=== PATIENT | male | born 1960 | race Caucasian/White ===

== ENCOUNTER 2018-05-04 07:37 | Emergency (ER) | payer OTHER ==
[2018-05-04] MEDS: FAMOTIDINE 20 MG/2 ML VIAL IVP (08:19)
[2018-05-04] MEDS: fentaNYL PF VIAL 100 MCG/2 ML VIAL IV (08:19)
[2018-05-04] MEDS: ONDANSETRON PF 4 MG/2 ML VIAL. IV (08:20)
[2018-05-04] MEDS: IV NORMAL SALINE 1000ML BAG 1,000 ML IV (08:20)
[2018-05-04 08:23] LABS: ADD MAN DIFF? NO
[2018-05-04 08:38] LABS: BASO % 0 % (0-3); EOS % 1 % (0-3); HEMATOCRIT 30.6 % (39.0-53.0); LYMPH # 1.3 x10^3/uL (1.0-4.8); LYMPH % 32 % (24-48); MEAN CORPUSCULAR HEMOGLOBIN 35 pg (25-35); MEAN CORPUSCULAR HGB CONC 36 g/dL (31-37); MEAN CORPUSCULAR VOLUME 97 fL (79-100); MONO # 0.2 x10^3/uL (0.0-1.1); MONO % 6 % (0-9); NEUT # 2.5 x10^3uL (1.8-7.7); NEUT % 61 % (31-73); PLATELET COUNT 104 x10^3/uL (140-400); RED BLOOD COUNT 3.16 x10^6/uL (4.30-5.70); RED CELL DISTRIBUTION WIDTH 15.1 % (11.5-14.5); WHITE BLOOD COUNT 4.1 x10^3/uL (4.0-11.0)
[2018-05-04 08:42] LABS: ANION GAP 13 (6-14); BLOOD UREA NITROGEN 18 mg/dL (8-26); BUN/CREATININE RATIO 13 (6-20); CARBON DIOXIDE 22 mmol/L (21-32); CHLORIDE 97 mmol/L (98-107); CREATININE 1.4 mg/dL (0.7-1.3); GFR 52.2; GLUCOSE 112 mg/dL (70-99); POTASSIUM 3.9 mmol/L (3.5-5.1); SODIUM 132 mmol/L (136-145)
[2018-05-04 08:43] LABS: INR 1.3 (0.8-1.1); PARTIAL THROMBOPLASTIN TIME 34 SEC (24-38); PROTHROMBIN TIME PATIENT 15.8 SEC (11.7-14.0)
[2018-05-04 08:48] LABS: ALBUMIN 2.9 g/dL (3.4-5.0); ALBUMIN/GLOBULIN RATIO 0.3 (1.0-1.7); ALK PHOS 65 U/L (46-116); ALT (SGPT) 22 U/L (16-63); AST (SGOT) 45 U/L (15-37); LIPASE 156 U/L (73-393); TOTAL BILIRUBIN 0.7 mg/dL (0.2-1.0); TOTAL PROTEIN 11.7 g/dL (6.4-8.2)
[2018-05-04 08:51] LABS: TROPONINI < 0.017 ng/mL (0.000-0.055)
[2018-05-04 08:56] LABS: CKMB MASS 0.6 ng/mL (0.0-3.6); CREATINE KINASE 68 U/L (39-308)
[2018-05-04 09:08] LABS: BILIRUBIN,URINE NEGATIVE (NEG); CLARITY,URINE CLEAR; COLOR,URINE YELLOW; GLUCOSE,URINE NEGATIVE (NEG); NITRITE,URINE NEGATIVE (NEG); PH,URINE 5.5; PROTEIN,URINE NEGATIVE (NEG-TRACE); UROBILINOGEN,URINE 0.2 mg/dL (0.2 mg/dL)
[2018-05-04 09:23] LABS: BACTERIA,URINE FEW /HPF (0-FEW); HYALINE CASTS, URINE FEW /HPF; RBC,URINE RARE /HPF (0-2); SQUAMOUS EPITHELIAL CELL,UR OCC /LPF
[2018-05-04] MEDS: HYDROcodone/APAP 5/325MG 1 TAB TABLET PO (10:06)
== END 2018-05-04 10:11 | disposition home or self-care (01) ==
LOC: ER 07:37
DX: R10.11 Right upper quadrant pain (principal); R07.89 Other chest pain; R11.0 Nausea; E78.00 Pure hypercholesterolemia, unspecified; I10 Essential (primary) hypertension; M10.9 Gout, unspecified; Z88.0 Allergy status to penicillin; Z88.1 Allergy status to other antibiotic agents
CPT/HCPCS: 36415; 76705; 80053; 81001; 82553; 83690; 84484; 85025; 85610; 85730; 93005; 96361; 96374; 96375; 99285-25; J2405; J3010; J7030; S0028

== ENCOUNTER → 2018-05-05 | Outpatient (CLI) | payer OTHER ==
[~2018-05-05] MED LIST: BUPIVACAINE-EPI 0.25%-1:200000 50 ML VIAL.; DESFLURANE 31 TO 60 MINUTES IH; DEXAMETHASONE SOD PHOS 20 MG/5 ML VIAL.; GLYCOPYRROLATE 1 MG/5 ML VIAL.; IOHEXOL 300 MG/ML 100ML VIAL.; KETOROLAC 30 MG/ML INJ FOR OR. INJ; NEOSTIGMINE METHYLSULFATE 5 MG/5 ML SYRINGE.; ONDANSETRON PF 4 MG/2 ML VIAL.; SURGICEL HEMOSTAT 4X8 EACH.
[2018-05-05] MEDS: SINCALIDE 2.3 MCG in IV NORMAL SALINE 50ML 30 ML IV (08:46)
== END | disposition home or self-care (01) ==
LOC: NM 07:22
DX: R10.11 Right upper quadrant pain (principal); I10 Essential (primary) hypertension; E78.5 Hyperlipidemia, unspecified; E78.00 Pure hypercholesterolemia, unspecified; K21.9 Gastro-esophageal reflux disease without esophagitis; Z87.891 Personal history of nicotine dependence
CPT/HCPCS: 78226; 96374; 96375; A9537; J1100; J1885; J2405; J2710; J2805; J3490; Q9967

== ENCOUNTER 2018-05-06 08:39 | Day surgery (SDC) | payer OTHER ==
[2018-05-06] MEDS ORDERED: fentaNYL PF VIAL 100 MCG/2 ML VIAL IV ×3 (09:00→10:30)
[2018-05-06] MEDS ORDERED: MIDAZOLAM HCL/PF 2 MG/2 ML VIAL. IV (09:00)
[2018-05-06] MEDS ORDERED: LIDOCAINE 1% PF 2 ML VIAL. ID ×2 (09:00→10:30)
[2018-05-06] MEDS: IV RINGERS,LACTATED 1000ML 1,000 ML IV (09:13)
[2018-05-06] MEDS ORDERED: PROPOFOL 20 ML IV (09:17)
[2018-05-06] MEDS ORDERED: LIDOCAINE 2% PF Vial for OR 5 ML VIAL. (09:17)
[2018-05-06] MEDS ORDERED: fentaNYL PF VIAL 100 MCG/2 ML VIAL ×3 (09:18→10:44)
[2018-05-06] MEDS: BUPIVACAINE-EPI 0.25%-1:200000 50 ML VIAL. INJ (09:37)
[2018-05-06] MEDS ORDERED: PROCHLORPERAZINE 10 MG/2 ML VIAL. (10:21)
[2018-05-06] MEDS ORDERED: MORPHINE SULFATE 2 MG/ML DISP.SYRIN. (10:21)
[2018-05-06] MEDS ORDERED: IV RINGERS,LACTATED 1000ML 1,000 ML IV (10:22)
[2018-05-06] MEDS: fentaNYL PF VIAL 100 MCG/2 ML VIAL IV ×4 (10:25→10:58)
[2018-05-06] MEDS: MORPHINE SULFATE 2 MG/ML DISP.SYRIN. IV ×2 (10:25→10:37)
[2018-05-06] MEDS: PROCHLORPERAZINE 10 MG/2 ML VIAL. IV (10:27)
[2018-05-06] MEDS ORDERED: oxyCODONE/APAP 5/325 1 TAB TABLET PO (10:45)
[2018-05-06] MEDS: oxyCODONE/APAP 5/325 1 TAB TABLET PO (11:00)
== END 2018-05-06 11:43 | disposition home or self-care (01) ==
LOC: SURG 08:39
DX: K82.8 Other specified diseases of gallbladder (principal); Z88.0 Allergy status to penicillin; Z88.1 Allergy status to other antibiotic agents; I10 Essential (primary) hypertension; E78.00 Pure hypercholesterolemia, unspecified; K21.9 Gastro-esophageal reflux disease without esophagitis; F41.9 Anxiety disorder, unspecified; M10.9 Gout, unspecified; Z98.890 Other specified postprocedural states; Z72.89 Other problems related to lifestyle; Z79.899 Other long term (current) drug therapy; Z87.891 Personal history of nicotine dependence
CPT/HCPCS: 47562; A7015; J0780; J1956; J2001; J2270; J2704; J3010; J7030

== ENCOUNTER → 2018-06-16 | Outpatient (CLI) | payer OTHER ==
[2018-06-11 11:00] VITALS: BP 148/88
[~2018-06-16] MED LIST changes: +ALLO300T PO; +ATOR40TA59 PO; +BARIUM SULFATE 60% 355 ML SUSP PO ONE; -BUPIVACAINE-EPI 0.25%-1:200000 50 ML VIAL.; +CELE200C PO; -DESFLURANE 31 TO 60 MINUTES IH; -DEXAMETHASONE SOD PHOS 20 MG/5 ML VIAL.; +DULO60CA6 PO; +FLUT9.9S NS; -GLYCOPYRROLATE 1 MG/5 ML VIAL.; +HYDR-971 PO; -IOHEXOL 300 MG/ML 100ML VIAL.; -KETOROLAC 30 MG/ML INJ FOR OR. INJ; +LISI1TAB5 PO; +LOSA25TA5 PO; +MELO7.5T29 PO; -NEOSTIGMINE METHYLSULFATE 5 MG/5 ML SYRINGE.; +OMEG1CAP6 PO; +OMEP20TA63 PO; +ONDA4TAB7 PO; -ONDANSETRON PF 4 MG/2 ML VIAL.; +OXYC-323 PO; +QUET25TA5 PO; -SURGICEL HEMOSTAT 4X8 EACH.; +VENL75CA PO
--- NOTE | 2018-06-16 11:59 | RAD ---
Small bowel series, 06/16/2018: HISTORY: Anemia The preliminary abdominal image demonstrates a nonspecific gas pattern. There is moderate multilevel hypertrophic degenerative change in the lower lumbar spine. Serial digital images and fluoroscopic spot films were obtained following oral ingestion of liquid barium. 0.5 minutes of fluoroscopy time was utilized. 3 fluoroscopic spot images were recorded. The small bowel loops are of normal caliber with no significant thickening of their folds. The barium reached the colon at 2 hours the terminal ileum is unremarkable. There was reflux of barium into a portion of the appendix. IMPRESSION: No significant small bowel abnormality is detected. Electronically signed by: Matheus Handley MD (06/16/2018 11:56 AM) [facility]
== END | disposition home or self-care (01) ==
LOC: RAD 16:19
PROVIDERS: ATTEND Internal Medicine Gastroenterology
DX: D64.9 Anemia, unspecified (principal); I10 Essential (primary) hypertension; E78.00 Pure hypercholesterolemia, unspecified; K21.9 Gastro-esophageal reflux disease without esophagitis; M10.9 Gout, unspecified; Z87.891 Personal history of nicotine dependence; Z88.0 Allergy status to penicillin; Z88.1 Allergy status to other antibiotic agents
CPT/HCPCS: 74250

== ENCOUNTER 2018-06-25 06:23 | Inpatient (IN) | payer OTHER ==
[2018-06-25] VITALS (16 sets, daily range): BP systolic 138–178; BP diastolic 88–113
[~2018-06-25] VITALS: Ht 175.3 cm; Wt 106.7 kg
[~2018-06-25 06:23] MED LIST changes: -BARIUM SULFATE 60% 355 ML SUSP PO ONE
[2018-06-25] MEDS ORDERED: LOSA1TAB12 PO (07:46)
[2018-06-25] MEDS ORDERED: ESCITALOPRAM OX10 MG PO (07:46)
[2018-06-25] MEDS ORDERED: HYDR-2758 PO (07:46)
[2018-06-25] MEDS ORDERED: FERR325T14 PO (07:46)
[2018-06-25] MEDS ORDERED: CYCL10TA2 PO (07:46)
--- NOTE | 2018-06-25 09:39 | PDOC1 ---
History and Physical Date of Admission Date of Admission DATE: 06/25/18 TIME: 09:07 Identification/Chief Complaint Chief Complaint Needs a bone marrow biopsy History of Present Illness History of Present Illness Mr. Jerry is a 58 year old male who presented to [facility] from [place] for a bone marrow biopsy. He states that over the course of the last 6-8 weeks he has been feeling poor. He had his gallbladder removed in April but that has not alleviated his symptoms. He states that he has been having bad constipation , feeling restless, has burning and itchy skin, body aches, 15lb weight loss, occasional night sweats, and easy bruising. He denies any urgency, blood in the urine, or frequency. He also reports that he has had a bone scan which he is still waiting on the results for, along with a colonoscopy and EGD which were both within normal limits. Past Medical History Cardiovascular: HTN, Hyperlipidemia Pulmonary: No pertinent hx GI: Diverticulosis, GERD, Gastritis Heme/Onc: No pertinent hx Hepatobiliary: No pertinent hx Psych: Anxiety Rheumatologic: No pertinent hx Infectious disease: No pertinent hx Renal/: No pertinent hx Endocrine: No pertinent hx Past Surgical History Past Surgical History: Tonsillectomy Family History Family History: No Significant Social History ALCOHOL: occassional Drugs: None Current Medications Current Medications Active Scripts Active Zofran (Ondansetron Hcl) 4 Mg Tablet 1 Tab PO Q8HRS PRN Reported Hyzaar 100-25 Tablet (Losartan/Hydrochlorothiazide) 1 Each Tablet 1 Each PO DAILY Hydrocodone-Apap 5-325 (Hydrocodone Bit/Acetaminophen) 1 Each Tablet 1 Tab PO PRN Q6HRS PRN Ferrous Sulfate 325 Mg Tablet 1 Tab PO DAILY Escitalopram Oxalate 10 Mg Tablet 10 Mg PO DAILY Cyclobenzaprine Hcl 10 Mg Tablet 10 Mg PO PRN TID PRN Seroquel (Quetiapine Fumarate) 25 Mg Tablet 1 Tab PO QHS Flonase Allergy Relief (Fluticasone Propionate) 9.9 Ml [place].susp 2 Sprays NS DAILY Meloxicam 7.5 Mg Tablet 7.5 Mg PO DAILY Prilosec Otc (Omeprazole Magnesium) 20 Mg Tablet.dr 20 Mg PO DAILY Allopurinol 300 Mg Tablet 300 Mg PO DAILY Allergies Allergies: Coded Allergies: amoxicillin (Verified Allergy, Intermediate, 06/11/18) Penicillins (Verified Adverse Reaction, Intermediate, Nausea and Vomiting , 06/11/18) Physical Exam Physical Exam A&O x3 Supple, mmm RRR no M CTAB Soft, TTP in suprapubic area No c/c/e CN 2-12 intact bilaterally Vitals Vitals Vital Signs Date Time Temp Pulse Resp B/P (MAP) Pulse Ox O2 Delivery O2 Flow Rate FiO2 06/25/18 07:30 98.6 103 158/105 (122) 93 Room Air 98.6 VTE Prophylaxis Ordered VTE Prophylaxis Devices: Yes VTE Pharmacological Prophylaxi: Contraindicated Assessment/Plan Assessment/Plan #Likely MM vs Lymphoma #HTN' #Acute renal failure #Acute severe anemia Plan - PRBC - bone marrow aspirate - beta 2 mircrogloublin to assess GAYATHRI PAINTING MD Jun 25, 2018 09:39
[2018-06-25 10:04] LABS: BASO % 1 % (0-3); EOS # 0.1 x10^3/uL (0.0-0.7); EOS % 1 % (0-3); HEMOGLOBIN 7.3 g/dL (13.0-17.5); LYMPH # 2.2 x10^3/uL (1.0-4.8); LYMPH % 39 % (24-48); MEAN CORPUSCULAR HEMOGLOBIN 34 pg (25-35); MEAN CORPUSCULAR HGB CONC 36 g/dL (31-37); MEAN CORPUSCULAR VOLUME 94 fL (79-100); MONO # 0.5 x10^3/uL (0.0-1.1); MONO % 9 % (0-9); NEUT # 2.8 x10^3uL (1.8-7.7); NEUT % 51 % (31-73); PLATELET COUNT 143 x10^3/uL (140-400); RED BLOOD COUNT 2.12 x10^6/uL (4.30-5.70); RED CELL DISTRIBUTION WIDTH 19.2 % (11.5-14.5); WHITE BLOOD COUNT 5.6 x10^3/uL (4.0-11.0)
[2018-06-25 10:08] LABS: PROTHROMBIN TIME PATIENT 16.7 SEC (11.7-14.0)
[2018-06-25] MEDS ORDERED: LIDOCAINE WITH 8.4% SOD BICARB 3 ML DISP.SYRIN. ONE (10:35)
[2018-06-25] MEDS ORDERED: MIDAZOLAM HCL/PF 2 MG/2 ML VIAL. ONE (10:35)
[2018-06-25] MEDS ORDERED: fentaNYL PF VIAL 100 MCG/2 ML VIAL ONE (10:36)
[2018-06-25] MEDS ORDERED: LIDOCAINE WITH 8.4% SOD BICARB 3 ML DISP.SYRIN. IJ ONE (11:30)
[2018-06-25] MEDS ORDERED: MIDAZOLAM HCL/PF 2 MG/2 ML VIAL. IV ONE (11:30)
[2018-06-25] MEDS ORDERED: fentaNYL PF VIAL 100 MCG/2 ML VIAL IV ONE (11:30)
[2018-06-25] MEDS ORDERED: CYCLOBENZAPRINE 10 MG TABLET. PO PRN (12:00)
[2018-06-25] MEDS ORDERED: HYDROcodone/APAP 5/325MG 1 TAB TABLET PO PRN (12:00)
[2018-06-25] MEDS: FERROUS SULFATE 325 MG TABLET. PO SCH (12:30)
--- NOTE | 2018-06-25 13:07 | PDOC ---
Provider Note Provider Note Med Onc consult: 1. Suspected multiple myeloma, s/p BM bx today. Start decadron 40 mg daily x 4 days from 06/25/18. 2. Anemia, ok to transfuse. I will f/u on 06/28/18. If he is discharged, he will come to my office 06/28/18 for f/u. see dictation [id number] PHILLIP FUNEZ MD Jun 25, 2018 13:07
[2018-06-25] MEDS: ALLOPURINOL 300 MG TABLET. PO SCH (13:55)
[2018-06-25] MEDS: LOSARTAN POTASSIUM 50 MG TABLET. PO SCH (13:56)
[2018-06-25] MEDS: PANTOPRAZOLE 40 MG TABLET.DR. PO SCH (13:56)
[2018-06-25] MEDS: hydroCHLOROthiazide 25 MG TABLET PO SCH (13:56)
[2018-06-25] MEDS: CITALOPRAM 20 MG TABLET. PO SCH (13:57)
[2018-06-25] MEDS: DEXAMETHASONE 4 MG TABLET PO SCH (13:57)
[2018-06-25] MEDS: FLUTICASONE 50MCG/NASAL SPRAY 16GM BOTTLE. NS SCH (13:58)
--- NOTE | 2018-06-25 16:42 | RAD ---
CT-guided bone marrow biopsy. 06/25/2018 4:38 PM Indication: anemia Discussion: The risks and benefits of the procedure, including but not limited to, bleeding and infection were discussed patient. Informed consent was obtained. The patient was brought to the CT scanner and placed in the prone position. A timeout procedure was performed. [employer] CT imaging of the pelvis demonstrated left ilium amenable to bone marrow biopsy. The overlying soft tissues were prepped and draped using maximum sterile barrier technique. 1% lidocaine without epinephrine was administered for local anesthesia. Under intermittent CT guidance, an OncControl needle was advanced into the bone marrow of the left iliac crest. 2 Aspirates and 1 core biopsy samples were obtained. Samples were delivered to pathology was present at the time of procedure. The needle was removed and manual pressure held to achieve hemostasis. No immediate complications were identified. The procedure was performed under conscious sedation including continuous cardiopulmonary monitoring via dedicated sedation nurse. Sedation time: 20 minutes Impression: Successful CT-guided bone marrow biopsy of the left iliac crest . PQRS Compliance Statement: One or more of the following individualized dose reduction techniques were utilized for this examination: 1. Automated exposure control 2. Adjustment of the mA and/or kV according to patient size 3. Use of iterative reconstruction technique
[2018-06-25] MEDS ORDERED: ACETAMINOPHEN 500 MG TABLET PO PRN (17:15)
[2018-06-25] MEDS ORDERED: cloNIDine HCL 0.1 MG TABLET PO PRN (17:15)
[2018-06-25] MEDS ORDERED: ONDANSETRON PF 4 MG/2 ML VIAL. IV PRN (17:15)
[2018-06-25] MEDS ORDERED: ONDANSETRON ODT 4 MG TAB.RAPDIS. PO PRN (17:15)
[2018-06-25] MEDS ORDERED: diphenhydrAMINE HCL 25 MG CAPSULE PO PRN (17:15)
--- NOTE | 2018-06-25 21:47 | CONS ---
DATE OF CONSULTATION: 06/25/2018 REASON FOR CONSULTATION: Worsening anemia and suspected multiple myeloma. HISTORY OF PRESENT ILLNESS: The patient is a 58-year-old gentleman who has had generalized weakness and worsening fatigue since 12/2017. CBC on 06/11/2018 revealed anemia with a hemoglobin of 8.1 and a platelet count of 126,000. Chemistry revealed a total protein of 12.7 with a globulin level of 10.3 and albumin of 2.4. He underwent a colonoscopy on 06/11/[address] Kamran Ramos that revealed nonbleeding internal hemorrhoids and a polyp measuring 6 mm that was removed from the rectum. Upper endoscopy revealed gastric polyps. He has also been having pain in the right upper quadrant since 03/2018 and he underwent ultrasound followed by cholecystectomy. He has had progressively worsening weakness and hence he presented to [facility] on 06/25/2018. He was noted to have hemoglobin of 6.9 and he was transferred to [facility] for further management. He underwent a bone marrow biopsy on 06/25/2018. His labs at [facility] on 06/25/2018 revealed creatinine of 1.3, calcium 8.9, total protein 12.9 and albumin 2.4. He underwent serum protein electrophoresis on 06/18/2018 with immunofixation studies. M spike was elevated at 6.7 and immunofixation studies revealed IgA kappa monoclonal antibody on 06/18/2018. IgA level was more than 6400. Free kappa light chain was 1253 with free lambda light chain of 3.0 and kappa/lambda ratio of 417.43. Beta 2 microglobulin was elevated at 3.8. PAST MEDICAL HISTORY: Hypertension, hyperlipidemia, diverticulosis, GERD, gastritis, anxiety. PAST SURGICAL HISTORY: Tonsillectomy. SOCIAL HISTORY: He drinks alcohol occasionally. He is a former smoker and quit smoking. FAMILY HISTORY: Negative for multiple myeloma. There is history of hypertension and diabetes in the family. REVIEW OF SYSTEMS: A 12-point review of system was performed. Pertinent positives are mentioned in the history of present illness. Rest of the system review is negative. PHYSICAL EXAMINATION: GENERAL APPEARANCE: The patient is a 58-year-old gentleman who is well developed and nourished and in no acute cardiorespiratory distress. VITAL SIGNS: Blood pressure 159/102, temperature 97.2. HEAD: Atraumatic, normocephalic. EYES: No icterus. NECK: Supple. CHEST: Bilaterally symmetrical. HEART: S1, S2 normal. ABDOMEN: Soft, nontender. CENTRAL NERVOUS SYSTEM: No focal deficits. LYMPHATICS: No lymphadenopathy. SKIN: No rashes. PSYCHOLOGIC: Mood and affect are appropriate. MUSCULOSKELETAL: No joint effusions. LABORATORY DATA: WBC 5.6, hemoglobin 7.3, and platelet count 143, creatinine 1.3 on 06/25/2018. IMPRESSION AND PLAN: 1. IgA kappa multiple myeloma is suspected based on his laboratory data. His IgA level was significantly elevated at more than 6400 on 06/18/2018 and immunofixation studies revealed IgA kappa monoclonal protein. In addition, the free light chains are also elevated at 417.43 kappa/lambda light chain ratio. Free kappa light chain is 1253.3. His creatinine was 1.3 on 06/25/2018 with a calcium level of 8.9. Total protein was 12.9 with an albumin of 2.4 on 06/25/2018. He underwent a bone marrow biopsy on 06/25/2018. I will discuss with pathology regarding the results of biopsy. Considering progressively worsening anemia and creatinine at the high normal range, I would initiate treatment with Decadron 40 mg daily for 4 days for management of suspected multiple myeloma. Once I have the confirmation of multiple myeloma, I will initiate chemotherapy with Revlimid, Velcade and Decadron. I discussed in detail with the patient and his and they understand and agree with the plan. He is going to get 1 unit of PRBC transfusion today, 06/25/2018. Start Decadron 40 mg daily for 4 days from 06/25/2018. In case he is discharged, he can continue Decadron to complete 4 days as outpatient. I have advised him to follow up with me on 06/28/2018. 2. Anemia, worse. Agree to transfuse 1 unit as he is very symptomatic. Hemoglobin was 6.9 on 06/25/2018 at [facility] and 7.3 at [facility]. PHILLIP FUNEZ MD DR: MARIAM/reina JOB#: [id number] / [id number] MTDD
[2018-06-26 03:00] VITALS: BP 129/78
[2018-06-26 05:52] LABS: HEMOGLOBIN 7.4 g/dL (13.0-17.5)
[2018-06-26 06:03] LABS: HEMATOCRIT 20.8 % (39.0-53.0)
[2018-06-26 06:09] LABS: CALCIUM 9.2 mg/dL (8.5-10.1); CREATININE 1.1 mg/dL (0.7-1.3); POTASSIUM 4.2 mmol/L (3.5-5.1)
[2018-06-26] MEDS: PANTOPRAZOLE 40 MG TABLET.DR. PO SCH (06:28)
[2018-06-26] MEDS ORDERED: LOSARTAN PO SCH (09:00)
[2018-06-26] MEDS ORDERED: HYDROCHLOROTHIAZIDE PO SCH (09:00)
[2018-06-26] MEDS: FERROUS SULFATE 325 MG TABLET. PO SCH (09:00)
[2018-06-26] MEDS: FLUTICASONE 50MCG/NASAL SPRAY 16GM BOTTLE. NS SCH (09:06)
[2018-06-26] MEDS: LOSARTAN POTASSIUM 50 MG TABLET. PO SCH (09:08)
[2018-06-26] MEDS: ALLOPURINOL 300 MG TABLET. PO SCH (09:08)
[2018-06-26] MEDS: hydroCHLOROthiazide 25 MG TABLET PO SCH (09:09)
[2018-06-26] MEDS: CITALOPRAM 20 MG TABLET. PO SCH (09:09)
[2018-06-26] MEDS: DEXAMETHASONE 4 MG TABLET PO SCH (09:15)
[2018-06-26 11:00] VITALS: BP 147/80
--- NOTE | 2018-06-26 12:28 | PDOC ---
PROGRESS NOTES Chief Complaint Chief Complaint CC: Anemia Bone marrow biopsy (06/25) -Suspected IgA kappa MM Bone scan-awaiting results Colonoscopy, EGD- normal Night sweats Cholecystectomy Constipation HTN Hyperlipidemia Diverticulosis GERD Gastritis Anxiety Tonsillectomy History of Present Illness History of Present Illness Pt. seen and examined Pt. alert and oriented; affect good Pt. discharged home today VSS Pt. stopped taking Fe PO due to constipation Discussed slow feed laxative Awaiting results of bone marrow biopsy (06/25) Suspected IgA MM Dr. Johnson began 40mg Decadron qd 4 days (06/25) 1 unit PRBC (06/25) Vitals Vitals Vital Signs Date Time Temp Pulse Resp B/P (MAP) Pulse Ox O2 Delivery O2 Flow Rate FiO2 06/26/18 09:08 133 74/101 06/26/18 03:00 97.5 18 96 Nasal Cannula 2.0 97.5 Labs LABS Laboratory Tests Test 06/26/18 04:00 Hemoglobin 7.4 g/dL (13.0-17.5) Hematocrit 20.8 % (39.0-53.0) Mean Corpuscular Hemoglobin Concent 35 g/dL (31-37) Sodium Level 128 mmol/L (136-145) Potassium Level 4.2 mmol/L (3.5-5.1) Chloride Level 92 mmol/L (98-107) Carbon Dioxide Level 23 mmol/L (21-32) Anion Gap 13 (6-14) Blood Urea Nitrogen 24 mg/dL (8-26) Creatinine 1.1 mg/dL (0.7-1.3) Estimated GFR (Cockcroft-Gault) 69.0 Glucose Level 146 mg/dL (70-99) Calcium Level 9.2 mg/dL (8.5-10.1) Review of Systems Review of Systems C/O fatigue Pt. denies pain Assessment and Plan Assessmemt and Plan CC: Anemia Bone marrow biopsy (06/25) -Suspected IgA kappa MM Assessment: Anemia Bone marrow biopsy (06/25) -Suspected IgA kappa MM Bone scan-awaiting results Colonoscopy, EGD- normal Night sweats Cholecystectomy Constipation HTN Hyperlipidemia Diverticulosis GERD Gastritis Anxiety Tonsillectomy Plan: Pt. discharged home today Fu w/ Dr. Johnson;p appreciate input Monitor labs; hemoglobin Await bone marrow biopsy report Home meds Continue Decadron Continue current diet Comment Review of Relevant I have reviewed the following items cristina (where applicable) has been applied. Labs Laboratory Tests Test 06/25/18 09:30 06/26/18 04:00 White Blood Count 5.6 x10^3/uL (4.0-11.0) Red Blood Count 2.12 x10^6/uL (4.30-5.70) Hemoglobin 7.3 g/dL (13.0-17.5) 7.4 g/dL (13.0-17.5) Hematocrit 20.0 % (39.0-53.0) 20.8 % (39.0-53.0) Mean Corpuscular Volume 94 fL (79-100) Mean Corpuscular Hemoglobin 34 pg (25-35) Mean Corpuscular Hemoglobin Concent 36 g/dL (31-37) 35 g/dL (31-37) Red Cell Distribution Width 19.2 % (11.5-14.5) Platelet Count 143 x10^3/uL (140-400) Neutrophils (%) (Auto) 51 % (31-73) Lymphocytes (%) (Auto) 39 % (24-48) Monocytes (%) (Auto) 9 % (0-9) Eosinophils (%) (Auto) 1 % (0-3) Basophils (%) (Auto) 1 % (0-3) Neutrophils # (Auto) 2.8 x10^3uL (1.8-7.7) Lymphocytes # (Auto) 2.2 x10^3/uL (1.0-4.8) Monocytes # (Auto) 0.5 x10^3/uL (0.0-1.1) Eosinophils # (Auto) 0.1 x10^3/uL (0.0-0.7) Basophils # (Auto) 0.0 x10^3/uL (0.0-0.2) Prothrombin Time 16.7 SEC (11.7-14.0) Prothromb Time International Ratio 1.4 (0.8-1.1) Activated Partial Thromboplast Time 39 SEC (24-38) Sodium Level 128 mmol/L (136-145) Potassium Level 4.2 mmol/L (3.5-5.1) Chloride Level 92 mmol/L (98-107) Carbon Dioxide Level 23 mmol/L (21-32) Anion Gap 13 (6-14) Blood Urea Nitrogen 24 mg/dL (8-26) Creatinine 1.1 mg/dL (0.7-1.3) Estimated GFR (Cockcroft-Gault) 69.0 Glucose Level 146 mg/dL (70-99) Calcium Level 9.2 mg/dL (8.5-10.1) Laboratory Tests Test 06/26/18 04:00 Hemoglobin 7.4 g/dL (13.0-17.5) Hematocrit 20.8 % (39.0-53.0) Mean Corpuscular Hemoglobin Concent 35 g/dL (31-37) Sodium Level 128 mmol/L (136-145) Potassium Level 4.2 mmol/L (3.5-5.1) Chloride Level 92 mmol/L (98-107) Carbon Dioxide Level 23 mmol/L (21-32) Anion Gap 13 (6-14) Blood Urea Nitrogen 24 mg/dL (8-26) Creatinine 1.1 mg/dL (0.7-1.3) Estimated GFR (Cockcroft-Gault) 69.0 Glucose Level 146 mg/dL (70-99) Calcium Level 9.2 mg/dL (8.5-10.1) Medications Current Medications Lidocaine/Sodium Bicarbonate (Buffered Lidocaine 1%) 3 ml STK-MED ONCE .ROUTE ; Start 06/25/18 at 10:35; Stop 06/25/18 at 10:36; Status DC Midazolam HCl (Versed) 2 mg STK-MED ONCE .ROUTE ; Start 06/25/18 at 10:35; Stop 06/25/18 at 10:36; Status DC Fentanyl Citrate (Fentanyl 2ml Vial) 100 mcg STK-MED ONCE .ROUTE ; Start at 10:36; Stop 06/25/18 at 10:37; Status DC Lidocaine/Sodium Bicarbonate (Buffered Lidocaine 1%) 3 ml 1X ONCE IJ Last administered on 06/25/18at 11:07; Start 06/25/18 at 11:30; Stop 06/25/18 at 11:31 ; Status DC Midazolam HCl (Versed) 1 mg 1X ONCE IV Last administered on 06/25/18at 11:07; Start 06/25/18 at 11:30; Stop 06/25/18 at 11:31; Status DC Fentanyl Citrate (Fentanyl 2ml Vial) 100 mcg 1X ONCE IV Last administered on at 11:23; Start 06/25/18 at 11:30; Stop 06/25/18 at 11:31; Status DC Allopurinol (Zyloprim) 300 mg DAILY PO Last administered on 06/26/18at 09:08; Start 06/25/18 at 12:30 Cyclobenzaprine HCl (Flexeril) 10 mg PRN TID PRN PO MUSCLE SPASMS; Start at 12:00 Ferrous Sulfate (Feosol) 325 mg DAILY PO ; Start 06/25/18 at 12:30 Acetaminophen/ Hydrocodone Bitart (Lortab 5/325) 1 tab PRN Q6HRS PRN PO MODERATE-SEVERE PAIN; Start 06/25/18 at 12:00 Citalopram Hydrobromide (CeleXA) 20 mg DAILY PO Last administered on 06/26/18at 09:09; Start 06/25/18 at 12:30 Fluticasone Propionate (Flonase) 2 spray DAILY NS Last administered on at 09:06; Start 06/25/18 at 12:30 Non-Formulary Medication (Losartan/ Hydrochlorothiazide (Hyzaar 100-25 Tablet)) 1 each DAILY PO ; Start 06/26/18 at 09:00; Status UNV Pantoprazole Sodium (Protonix) 40 mg DAILYAC PO Last administered on 06/26/18at 06:28; Start 06/25/18 at 12:30 Losartan Potassium (Cozaar) 100 mg DAILY PO Last administered on 06/26/18at 09: 08; Start 06/25/18 at 12:30 Hydrochlorothiazide (Hydrodiuril) 25 mg DAILY PO Last administered on 09:09; Start 06/25/18 at 12:30 Dexamethasone (Decadron) 40 mg DAILY PO Last administered on 06/26/18at 09:15; Start 06/25/18 at 13:00; Stop 06/29/18 at 12:59 Acetaminophen (Tylenol) 500 mg PRN Q6HRS PRN PO MILD PAIN / TEMP; Start at 17:15 Ondansetron HCl (Zofran) 4 mg PRN Q6HRS PRN IV NAUSEA/VOMITING; Start 06/25/18 at 17:15 Ondansetron HCl (Zofran Odt) 4 mg PRN Q6HRS PRN PO NAUSEA/VOMITING; Start 06/25 at 17:15 Diphenhydramine HCl (Benadryl) 25 mg PRN QHS PRN PO INSOMNIA; Start 06/25/18 at 17:15 Clonidine HCl (Catapres) 0.1 mg PRN Q1HR PRN PO HYPERTENSION, SEE COMMENTS Last administered on 06/25/18at 17:21; Start 06/25/18 at 17:15 Active Scripts Active Zofran (Ondansetron Hcl) 4 Mg Tablet 1 Tab PO Q8HRS PRN Reported Hyzaar 100-25 Tablet (Losartan/Hydrochlorothiazide) 1 Each Tablet 1 Each PO DAILY Hydrocodone-Apap 5-325 (Hydrocodone Bit/Acetaminophen) 1 Each Tablet 1 Tab PO PRN Q6HRS PRN Ferrous Sulfate 325 Mg Tablet 1 Tab PO DAILY Escitalopram Oxalate 10 Mg Tablet 10 Mg PO DAILY Cyclobenzaprine Hcl 10 Mg Tablet 10 Mg PO PRN TID PRN Seroquel (Quetiapine Fumarate) 25 Mg Tablet 1 Tab PO QHS Flonase Allergy Relief (Fluticasone Propionate) 9.9 Ml [place].susp 2 Sprays NS DAILY Meloxicam 7.5 Mg Tablet 7.5 Mg PO DAILY Prilosec Otc (Omeprazole Magnesium) 20 Mg Tablet.dr 20 Mg PO DAILY Allopurinol 300 Mg Tablet 300 Mg PO DAILY Vitals/I & O Vital Sign - Last 24 Hours 06/25/18 06/25/18 06/25/18 06/25/18 12:14 13:56 14:45 15:00 Temp 97.5 97.5 Pulse 95 98 92 Resp 18 B/P (MAP) 159/102 159/95 143/101 (115) Pulse Ox 94 98 O2 Delivery Room Air Nasal Cannula O2 Flow Rate 2.0 2.0 06/25/18 06/25/18 06/25/18 06/25/18 15:01 16:03 17:12 17:21 Temp 96.6 97.9 97.9 96.6 97.9 97.9 Pulse 92 92 94 94 Resp 20 20 20 B/P (MAP) 156/88 143/101 167/113 167/113 06/25/18 06/25/18 06/25/18 06/25/18 18:39 19:00 20:17 22:47 Temp 99.7 98.1 98.8 99.7 98.1 98.8 Pulse 103 98 94 Resp 22 20 18 B/P (MAP) 141/88 148/89 (108) 138/90 (106) Pulse Ox 95 94 O2 Delivery Nasal Cannula Room Air Nasal Cannula O2 Flow Rate 2.0 2.0 2.0 06/26/18 06/26/18 03:00 09:08 Temp 97.5 97.5 Pulse 87 133 Resp 18 B/P (MAP) 129/78 (95) 74/101 Pulse Ox 96 O2 Delivery Nasal Cannula O2 Flow Rate 2.0 Intake and Output 06/25/18 06/25/18 06/26/18 15:00 23:00 07:00 Intake Total 350 ml 485 ml 320 ml Balance 350 ml 485 ml 320 ml FRANCISCO KO K III DO Jun 26, 2018 12:28
== END 2018-06-26 13:30 | disposition home or self-care (01) | DRG 841 ==
LOC: 5 NORTH 06:32
PROVIDERS: ADMIT Family Medicine; ATTEND Family Medicine
PROC: 30233N1 Transfusion of Nonautologous Red Blood Cells into Peripheral Vein, Percutaneous Approach (ICD-10-PCS; principal; 2018-06-25)
PROC: 07DR3ZX Extraction of Iliac Bone Marrow, Percutaneous Approach, Diagnostic (ICD-10-PCS; 2018-06-25)
DX: C90.00 Multiple myeloma not having achieved remission (principal); N17.9 Acute kidney failure, unspecified; D64.9 Anemia, unspecified; E78.5 Hyperlipidemia, unspecified; F41.9 Anxiety disorder, unspecified; I10 Essential (primary) hypertension; K21.9 Gastro-esophageal reflux disease without esophagitis; K29.70 Gastritis, unspecified, without bleeding; K57.90 Diverticulosis of intestine, part unspecified, without perforation or abscess without bleeding; K64.8 Other hemorrhoids; R61 Generalized hyperhidrosis; K59.00 Constipation, unspecified; Z88.0 Allergy status to penicillin; Z88.8 Allergy status to other drugs, medicaments and biological substances; Z90.49 Acquired absence of other specified parts of digestive tract; Z87.891 Personal history of nicotine dependence; Z82.49 Family history of ischemic heart disease and other diseases of the circulatory system; Z83.3 Family history of diabetes mellitus
CPT/HCPCS: 36415; 38222; 77012; 80048; 85014; 85018; 85025; 85610; 85730; 86078; 86850; 86900; 86901; 86920; 87040; 88184; 88185; 88237; 99152; J2250; J3010; J8540; P9016

== ENCOUNTER 2018-07-08 19:14 | Inpatient (IN) | payer OTHER ==
[~2018-07-08] VITALS: Ht 175.3 cm; Wt 103.0 kg
[~2018-07-08 19:14] MED LIST changes: +CYCL10TA2 PO; +ESCITALOPRAM OX10 MG PO; +FERR325T14 PO; +HYDR-2758 PO; +LOSA1TAB12 PO
[2018-07-08] MEDS ORDERED: IV NORMAL SALINE 1000ML BAG 1,000 ML IV SCH (19:57)
[2018-07-08] MEDS ORDERED: ACETAMINOPHEN 500 MG TABLET PO ONE (20:00)
--- NOTE | 2018-07-08 20:04 | PHYS DOC ---
Past Medical History Past Medical History: Anxiety, High Cholesterol, Hypertension, Other Additional Past Medical Histor: Gout, multiple myeloma Past Surgical History: Tonsillectomy Smoking: Quit Greater Than 1 Year Alcohol Use: Occasionally Drug Use: None Adult General Chief Complaint Chief Complaint: MULTIPLE COMPLAINTS HPI HPI Patient is a 58-year-old male who presents to the emergency department for evaluation. He was diagnosed with multiple myeloma about a week or so ago, and started treatments this week. He began his first Velcade injection earlier this week, and began his by mouth chemotherapy yesterday. The patient states this morning he awoke and just didn't feel well, with some general malaise and chills. He spent most of the day sleeping and this afternoon began experiencing fevers. His temperature was 103, and he took Tylenol at about 3 PM. He has felt short of breath but has not had any cough or congestion. He has had a mild sore throat earlier but that has improved at this time.. He denies any nausea or vomiting, focal abdominal pain., Chest pain, or cough. He has not had a focal headache, and has not had any mental status changes, although he has felt very weak and fatigued. There are no alleviating, or exacerbating factors to his symptoms otherwise. He called the on-call line of his oncologist's office, Dr. Johnson, who practices here to , and was sent to the emergency department. Review of Systems Review of Systems Constitutional: Reports fevers and chills[] Eyes: Denies change in visual acuity, redness, or eye pain [] HENT: Denies nasal congestion. [] Respiratory: Denies cough. Reports shortness of breath [] Cardiovascular: The patient denies any chest pain, palpitations, or orthopnea [] GI: Denies abdominal pain, nausea, vomiting, bloody stools or diarrhea [] : Denies dysuria or hematuria [] Musculoskeletal: Denies back pain or joint pain. Does report diffuse myalgias. [ ] Integument: Denies rash or skin lesions [] Neurologic: Denies headache, focal weakness or sensory changes [] Endocrine: Denies polyuria or polydipsia [] All other systems were reviewed and found to be within normal limits, except as documented in this note. Current Medications Current Medications Current Medications Medications (Trade) Dose Ordered Sig/Miguelina Start Time Stop Time Status Last Admin Dose Admin Acetaminophen (Tylenol) 1,000 mg 1X ONCE 07/08/18 20:00 07/08/18 20:01 DC 07/08/18 20:00 1,000 MG Ketorolac Tromethamine (Toradol 30mg Vial) 30 mg STK-MED ONCE 07/08/18 21:35 07/08/18 21:36 DC Levofloxacin/ Dextrose 150 ml @ 100 mls/hr 1X ONCE 07/08/18 22:30 07/08/18 23:59 07/08/18 22:30 100 MLS/HR Ondansetron HCl (Zofran) 4 mg STK-MED ONCE 07/08/18 21:36 07/08/18 21:37 DC Sodium Chloride 1,000 ml @ 1,000 mls/hr Q1H 07/08/18 19:57 07/08/18 20:56 DC 07/08/18 19:57 1,000 MLS/HR Allergies Allergies Allergies Coded Allergies Type Severity Reaction Last Updated Verified amoxicillin Allergy Intermediate 07/06/18 Yes Penicillins Adverse Reaction Intermediate Nausea and Vomiting 07/06/18 Yes Physical Exam Physical Exam PHYSICAL EXAM: CONSTITUTIONAL: Well developed, well nourished, somewhat ill-appearing. HEAD: normocephalic, atraumatic EENT: PERRL, EOMI. Conjunctivae normal color, sclerae non-icteric; moist mucous membranes. The oropharynx appears unremarkable. NECK: Supple, non-tender; no meningismus. LUNGS: Lungs CTA, breathing even and unlabored. Normal air movement. HEART: Regular rate and rhythm, no murmur CHEST: No deformity; non-tender ABDOMEN: The abdomen is soft, and non-tender, no masses or bruits. EXTREM: Normal ROM; no deformity, no calf tenderness. Normal pulses palpable in all extremities. There is no pedal edema. SKIN: No rash; no diaphoresis NEURO: Alert; normal speech and cognition; CN's grossly intact; strength grossly intact without focal deficit. BACK: No CVA TTP. Current Patient Data Vital Signs Vital Signs Date Time Temp Pulse Resp B/P (MAP) Pulse Ox O2 Delivery O2 Flow Rate FiO2 07/08/18 19:38 98.9 101 20 118/79 (92) 100 Room Air 98.9 Lab Values Laboratory Tests Test 07/08/18 20:20 White Blood Count 12.3 x10^3/uL (4.0-11.0) H Red Blood Count 2.76 x10^6/uL (4.30-5.70) L Hemoglobin 9.4 g/dL (13.0-17.5) L Hematocrit 26.5 % (39.0-53.0) L Mean Corpuscular Volume 96 fL (79-100) Mean Corpuscular Hemoglobin 34 pg (25-35) Mean Corpuscular Hemoglobin Concent 36 g/dL (31-37) Red Cell Distribution Width 22.6 % (11.5-14.5) H Platelet Count 220 x10^3/uL (140-400) Neutrophils (%) (Auto) 91 % (31-73) H Lymphocytes (%) (Auto) 6 % (24-48) L Monocytes (%) (Auto) 3 % (0-9) Eosinophils (%) (Auto) 1 % (0-3) Basophils (%) (Auto) 0 % (0-3) Neutrophils # (Auto) 11.2 x10^3uL (1.8-7.7) H Lymphocytes # (Auto) 0.7 x10^3/uL (1.0-4.8) L Monocytes # (Auto) 0.3 x10^3/uL (0.0-1.1) Eosinophils # (Auto) 0.1 x10^3/uL (0.0-0.7) Basophils # (Auto) 0.0 x10^3/uL (0.0-0.2) Segmented Neutrophils % 94 % (35-66) H Lymphocytes % 6 % (24-48) L Monocytes % 0 % (0-10) Toxic Vacuolation Slight Platelet Estimate Adequate (ADEQUATE) Anisocytosis Mod Sodium Level 134 mmol/L (136-145) L Potassium Level 3.9 mmol/L (3.5-5.1) Chloride Level 96 mmol/L (98-107) L Carbon Dioxide Level 25 mmol/L (21-32) Anion Gap 13 (6-14) Blood Urea Nitrogen 23 mg/dL (8-26) Creatinine 1.3 mg/dL (0.7-1.3) Estimated GFR (Cockcroft-Gault) 56.9 BUN/Creatinine Ratio 18 (6-20) Glucose Level 119 mg/dL (70-99) H Lactic Acid Level 1.9 mmol/L (0.4-2.0) Calcium Level 8.0 mg/dL (8.5-10.1) L Magnesium Level 1.9 mg/dL (1.8-2.4) Total Bilirubin 0.5 mg/dL (0.2-1.0) Aspartate Amino Transferase (AST) 31 U/L (15-37) Alanine Aminotransferase (ALT) 25 U/L (16-63) Alkaline Phosphatase 79 U/L (46-116) Creatine Kinase 37 U/L (39-308) L Troponin I Quantitative < 0.017 ng/mL (0.000-0.055) Total Protein 9.7 g/dL (6.4-8.2) H Albumin 2.9 g/dL (3.4-5.0) L Albumin/Globulin Ratio 0.4 (1.0-1.7) L Lipase 246 U/L (73-393) Laboratory Tests 07/08/18 20:20 Laboratory Tests 07/08/18 20:20 EKG EKG [[Normal sinus rhythm at a rate of 103 beats for minute, normal axis, normal intervals, there are no acute ischemic ST/T changes, there is motion artifact, likely related to the patient's chills. Poor anterior R-wave progression is present.]] Radiology/Procedures Radiology/Procedures [ER physician preliminary chest x-ray interpretation: No acute disease.] Course & Med Decision Making Course & Med Decision Making Pertinent Labs and Imaging studies reviewed. (See chart for details) [The patient's condition remains stable. I spoke with the hospitalist, who accepted the patient to the hospital for further evaluation and treatment.] I also spoke with Dr. Ureña, on-call for the patient's oncologist, who agreed with admission and empiric antibiotics. Urinalysis, flu and strep swabs are currently pending. Dragon Disclaimer Dragon Disclaimer This electronic medical record was generated, in whole or in part, using a voice recognition dictation system. Departure Departure Impression: Primary Impression: Fever and chills Additional Impression: Multiple myeloma Disposition: ADMITTED INPATIENT Admitting Physician: Other (Nadiya Mark) Condition: STABLE Referrals: SUSAN BOX APRN (PCP) Problem Qualifiers OSMIN MORRISON MD Jul 08, 2018 20:04
[2018-07-08 20:51] LABS: BASO % 0 % (0-3); EOS # 0.1 x10^3/uL (0.0-0.7); EOS % 1 % (0-3); HEMATOCRIT 26.5 % (39.0-53.0); HEMOGLOBIN 9.4 g/dL (13.0-17.5); LYMPH # 0.7 x10^3/uL (1.0-4.8); LYMPH % 6 % (24-48); MEAN CORPUSCULAR HEMOGLOBIN 34 pg (25-35); MEAN CORPUSCULAR HGB CONC 36 g/dL (31-37); MEAN CORPUSCULAR VOLUME 96 fL (79-100); MONO # 0.3 x10^3/uL (0.0-1.1); MONO % 3 % (0-9); NEUT # 11.2 x10^3uL (1.8-7.7); NEUT % 91 % (31-73); PLATELET COUNT 220 x10^3/uL (140-400); RED BLOOD COUNT 2.76 x10^6/uL (4.30-5.70); RED CELL DISTRIBUTION WIDTH 22.6 % (11.5-14.5); WHITE BLOOD COUNT 12.3 x10^3/uL (4.0-11.0)
[2018-07-08 21:04] LABS: CREATININE 1.3 mg/dL (0.7-1.3); GFR 56.9; POTASSIUM 3.9 mmol/L (3.5-5.1)
[2018-07-08 21:11] LABS: ALBUMIN 2.9 g/dL (3.4-5.0); ALBUMIN/GLOBULIN RATIO 0.4 (1.0-1.7); MAGNESIUM 1.9 mg/dL (1.8-2.4); TOTAL BILIRUBIN 0.5 mg/dL (0.2-1.0); TOTAL PROTEIN 9.7 g/dL (6.4-8.2)
[2018-07-08 21:24] LABS: % SEGS 94 % (35-66)
[2018-07-08 21:25] LABS: PLT ESTIMATE ADEQUATE (ADEQUATE); TOXIC VACUOLATION SLIGHT
[2018-07-08 21:26] LABS: ANISOCYTOSIS MOD
[2018-07-08 21:27] LABS: % LYMPHS 6 % (24-48); % MONOS 0 % (0-10)
[2018-07-08] MEDS ORDERED: KETOROLAC 30 MG/ML VIAL. ONE (21:35)
[2018-07-08] MEDS ORDERED: ONDANSETRON PF 4 MG/2 ML VIAL. ONE (21:36)
[2018-07-08] MEDS ORDERED: KETOROLAC 30 MG/ML VIAL. IV ONE (22:00)
[2018-07-08] MEDS ORDERED: ONDANSETRON PF 4 MG/2 ML VIAL. IV ONE (22:00)
[2018-07-08] MEDS ORDERED: IV NORMAL SALINE 1000ML BAG 1,000 ML IV ONE (23:00)
[2018-07-08 23:50] VITALS: BP 113/67
[2018-07-09] MEDS ORDERED: ACYC800T PO (00:33)
[2018-07-09] MEDS ORDERED: DEXA4TAB PO (00:33)
[2018-07-09] MEDS ORDERED: LENA25CA PO (00:33)
[2018-07-09] MEDS ORDERED: ASPI325T8 PO (00:33)
[2018-07-09] MEDS ORDERED: SULF-143 PO (00:33)
[2018-07-09] MEDS ORDERED: GABA-586 PO (00:33)
[2018-07-09] MEDS: MORPHINE SULFATE 2 MG/ML VIAL. IV PRN ×3 (01:41→09:25)
[2018-07-09 03:11] VITALS: BP 97/55
--- NOTE | 2018-07-09 05:12 | EKG ---
[facility] [address] [place] [address] Test Date: 2018-07-08 Test Time: 20:21:52 Pat Name: JOHN FORTE Department: Room: 514 Gender: M Dub Room Engineer: SHALA : [id number] Requested By: OSMIN MORRISON Order Number: [id number] Reading MD: Champ Loredo Measurements Intervals [place] Rate: 103 P: 20 AK: 110 QRS: 13 QRSD: 84 T: 61 QT: 312 QTc: 411 Interpretive Statements SINUS TACHYCARDIA LEFT ATRIAL ABNORMALITY ABNORMAL ECG Electronically Signed On 07-12-2018 12:04:35 CDT by Champ Loredo
--- NOTE | 2018-07-09 06:31 | RAD ---
Indication:Dizzy and fever, HX of multiple myeloma TECHNIQUE:Portable AP chest X-ray COMPARISON:None FINDINGS:w heart is normal in size. Mild diffuse soft tissue opacities are seen without focal consolidation. No pneumothorax or effusion. Visualized bony thorax within normal limits. IMPRESSION: Mild prominence of diffuse interstitial markings may be secondary to atypical/viral infection. Electronically signed by: Amado Naranjo DO (07/09/2018 6:27 AM) [facility]
[2018-07-09 07:00] VITALS: BP 117/77
[2018-07-09] MEDS: ACETAMINOPHEN 500 MG TABLET PO PRN ×2 (09:24→20:02)
--- NOTE | 2018-07-09 10:26 | PDOC ---
Infectious Disease Note Vital Sign Vital Signs Vital Signs Date Time Temp Pulse Resp B/P (MAP) Pulse Ox O2 Delivery O2 Flow Rate FiO2 07/09/18 09:55 18 Room Air 07/09/18 07:00 100.8 105 117/77 (90) 96 100.8 Labs Lab Laboratory Tests Test 07/08/18 20:20 White Blood Count 12.3 x10^3/uL (4.0-11.0) Red Blood Count 2.76 x10^6/uL (4.30-5.70) Hemoglobin 9.4 g/dL (13.0-17.5) Hematocrit 26.5 % (39.0-53.0) Mean Corpuscular Volume 96 fL (79-100) Mean Corpuscular Hemoglobin 34 pg (25-35) Mean Corpuscular Hemoglobin Concent 36 g/dL (31-37) Red Cell Distribution Width 22.6 % (11.5-14.5) Platelet Count 220 x10^3/uL (140-400) Neutrophils (%) (Auto) 91 % (31-73) Lymphocytes (%) (Auto) 6 % (24-48) Monocytes (%) (Auto) 3 % (0-9) Eosinophils (%) (Auto) 1 % (0-3) Basophils (%) (Auto) 0 % (0-3) Neutrophils # (Auto) 11.2 x10^3uL (1.8-7.7) Lymphocytes # (Auto) 0.7 x10^3/uL (1.0-4.8) Monocytes # (Auto) 0.3 x10^3/uL (0.0-1.1) Eosinophils # (Auto) 0.1 x10^3/uL (0.0-0.7) Basophils # (Auto) 0.0 x10^3/uL (0.0-0.2) Segmented Neutrophils % 94 % (35-66) Lymphocytes % 6 % (24-48) Monocytes % 0 % (0-10) Toxic Vacuolation Slight Platelet Estimate Adequate (ADEQUATE) Anisocytosis Mod Sodium Level 134 mmol/L (136-145) Potassium Level 3.9 mmol/L (3.5-5.1) Chloride Level 96 mmol/L (98-107) Carbon Dioxide Level 25 mmol/L (21-32) Anion Gap 13 (6-14) Blood Urea Nitrogen 23 mg/dL (8-26) Creatinine 1.3 mg/dL (0.7-1.3) Estimated GFR (Cockcroft-Gault) 56.9 BUN/Creatinine Ratio 18 (6-20) Glucose Level 119 mg/dL (70-99) Lactic Acid Level 1.9 mmol/L (0.4-2.0) Calcium Level 8.0 mg/dL (8.5-10.1) Magnesium Level 1.9 mg/dL (1.8-2.4) Total Bilirubin 0.5 mg/dL (0.2-1.0) Aspartate Amino Transf (AST/SGOT) 31 U/L (15-37) Alanine Aminotransferase (ALT/SGPT) 25 U/L (16-63) Alkaline Phosphatase 79 U/L (46-116) Creatine Kinase 37 U/L (39-308) Troponin I Quantitative < 0.017 ng/mL (0.000-0.055) Total Protein 9.7 g/dL (6.4-8.2) Albumin 2.9 g/dL (3.4-5.0) Albumin/Globulin Ratio 0.4 (1.0-1.7) Lipase 246 U/L (73-393) Objective Assessment Fever - ? infection vs drug reaction Leukocytosis - improved but also s/p dexamethasone MM PCN allergies - PCN/amox - intolerance Plan Plan of Care Add Cefepime/Vanc (health care exposure) Cont Levoflox for atypical Check Mycoplasma/Legionella/Strep pneumo antigen Resp viral panel - not available F/u blood cults/Flu screen/strep screen D/w and Dr. Johnson Thank you # [phone] EFRA RESENDIZ MD Jul 09, 2018 10:26
[2018-07-09 10:27] LABS: BASO % 0 % (0-3); EOS # 0.1 x10^3/uL (0.0-0.7); EOS % 1 % (0-3); HEMOGLOBIN 8.4 g/dL (13.0-17.5); LYMPH # 0.5 x10^3/uL (1.0-4.8); LYMPH % 7 % (24-48); MEAN CORPUSCULAR HEMOGLOBIN 34 pg (25-35); MEAN CORPUSCULAR HGB CONC 35 g/dL (31-37); MEAN CORPUSCULAR VOLUME 96 fL (79-100); MONO # 0.2 x10^3/uL (0.0-1.1); MONO % 3 % (0-9); NEUT # 6.1 x10^3uL (1.8-7.7); NEUT % 88 % (31-73); PLATELET COUNT 155 x10^3/uL (140-400); RED CELL DISTRIBUTION WIDTH 22.2 % (11.5-14.5); WHITE BLOOD COUNT 6.9 x10^3/uL (4.0-11.0)
[2018-07-09 10:28] LABS: CALCIUM 7.2 mg/dL (8.5-10.1); CREATININE 1.2 mg/dL (0.7-1.3); GFR 62.4; POTASSIUM 3.7 mmol/L (3.5-5.1)
[2018-07-09 11:00] VITALS: BP 114/58
[2018-07-09] MEDS ORDERED: VANCOMYCIN 2 GM in IV NORMAL SALINE 500ML BAG 500 ML IV ONE (12:00)
[2018-07-09] MEDS ORDERED: BORTEZOMIB 3.5 MG VIAL SQ ONE (12:00)
[2018-07-09 13:17] LABS: MYCOPLASMA PATIENT NEGATIVE (NEGATIVE)
[2018-07-09] MEDS: CEFEPIME HCL IV Push 1 GM VIAL. IVP SCH ×2 (13:22→22:39)
[2018-07-09] MEDS ORDERED: CEFEPIME HCL 1 GM in IV DEXTROSE 5% 50 ML IV SCH (14:00)
--- NOTE | 2018-07-09 14:14 | CONS ---
DATE OF CONSULTATION: 07/09/2018 The patient's room 514. REQUESTING PHYSICIAN: Dr. Johnson. REASON FOR CONSULTATION: Fever. HISTORY OF PRESENT ILLNESS: The patient is a pleasant 58-year-old gentleman who had difficulties in March and was found to have cholecystitis and underwent cholecystectomy. However, he had progressive weakness and anemia, underwent a colonoscopy and revealed nonbleeding internal hemorrhoids, but subsequently was admitted secondary to worsening anemia and concern for multiple myeloma on 06/25. He has since been diagnosed with multiple myeloma. On 07/06, he received a dose of dexamethasone and then a dose of Velcade, initially started on the and also received some zoledronic acid on the . Yesterday, he awakened and felt weak, had generalized aches and flu-like symptoms. He since has developed some sinus congestion. He has also had decreased urine output, mild shortness of air. No cramps or diarrhea, but because he was feeling so poorly, ended up calling Dr. Johnson who referred him to the Emergency Room at [facility] on the . He did take some oral chemotherapy yesterday, but after he started to feel bad. He reported temperature of 103 and took some Tylenol at presentation. He was initially afebrile, but did have a temperature of 100.8 earlier this morning, was given a dose of levofloxacin. In the Emergency Room, also had a white blood cell count of 12.3 on arrival with 94% segs. Chest x-ray was performed and showed mild prominence of diffuse interstitial markings, may be secondary to atypical or viral infection. Flu swab has been obtained, and he has been admitted to the hospital. Currently, he feels somewhat fatigued. PAST MEDICAL HISTORY: Positive for hypertension, hyperlipidemia, diverticulosis, gastroesophageal reflux disease, gastritis, anxiety, multiple myeloma as described above, cholecystitis. PAST SURGICAL HISTORY: Positive for cholecystectomy, has had a previous tonsillectomy. REVIEW OF SYSTEMS: Otherwise negative except for as mentioned above. ALLERGIES: LISTED PENICILLIN, AMOXICILLIN THAT CAUSES MORE UPSET STOMACH, IS MORE OF AN INTOLERANCE. SOCIAL HISTORY: He is . 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 He was born in [place], but has lived in [place] as well. No recent travel. He was in the , but not traveled overseas. No farming or construction history. He has a dog and two cats at home. Does not work with the litter box. There are no birds, reptiles or rodents. Denies any recent bug bites or tick bites. FAMILY HISTORY: Noncontributory. MEDICATIONS: Include levofloxacin, Tylenol, Zofran. PHYSICAL EXAMINATION: VITAL SIGNS: Most recent temperature 100.8, pulse 105, respirations 18, blood pressure 117/77, satting 96% on room air. CONSTITUTIONAL: He is cooperative. He is in no acute distress, but he does look a little tired. HEENT: Pupils equal and reactive. Oral cavity, pharynx is clear. NECK: Supple, no JVD. LUNGS: Had some mild crackles. HEART: S1, S2. ABDOMEN: Obese, soft, nontender, nondistended, positive bowel sounds. EXTREMITIES: No clubbing, cyanosis or gross edema. SKIN: Warm to touch without signs of rash. NEUROLOGIC: Nonfocal and appropriate. PSYCHIATRIC: Affect is pleasant. LABORATORY DATA: White count today 6.9, hemoglobin 8.4, platelets of 155, neutrophils 88, lymphs are 7. Creatinine of 1.2, glucose of 152. Normal liver function study tests at arrival. Chest x-ray reviewed in history of present illness. IMPRESSION: 1. Fever, questionable infection versus drug reaction. 2. Leukocytosis, improved, but also has post-dexamethasone. 3. Multiple myeloma. 4. PENICILLIN ALLERGIES, is more of an intolerance. 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 We will continue levofloxacin for atypical coverage. We will check mycoplasma, legionella and strep pneumo antigens. Follow up on blood cultures. Follow up on flu screen as well as strep screen. Respiratory viral panel is not available. This was discussed with Dr. Johnson. Thank you for the opportunity to participate in the patient's care. Should you have any further questions, please do not hesitate to contact me. EFRA RESENDIZ MD DR: JEFF/reina JOB#: [id number] / [id number]
[2018-07-09 14:15] LABS: BILIRUBIN,URINE NEGATIVE (NEG); CLARITY,URINE CLEAR; COLOR,URINE YELLOW; NITRITE,URINE NEGATIVE (NEG); PROTEIN,URINE NEGATIVE (NEG-TRACE); UROBILINOGEN,URINE 0.2 mg/dL (0.2 mg/dL)
[2018-07-09 14:24] LABS: BACTERIA,URINE 0 /HPF (0-FEW); RBC,URINE RARE /HPF (0-2); WBC,URINE 0 /HPF (0-4)
[2018-07-09 14:55] LABS: INFLUENZA A PATIENT NEGATIVE (NEGATIVE)
[2018-07-09 14:56] LABS: INFLUENZA B PATIENT NEGATIVE (NEGATIVE)
[2018-07-09 15:00] VITALS: BP 139/80
[2018-07-09] MEDS: VANCOMYCIN PER PHARMACY MC PRN (16:38)
[2018-07-09] MEDS: PANTOPRAZOLE 40 MG TABLET.DR. PO SCH (17:09)
[2018-07-09 19:00] VITALS: BP 125/74
[2018-07-09] MEDS: ACYCLOVIR 200 MG CAPSULE. PO SCH (20:01)
[2018-07-09] MEDS: GABAPENTIN 300 MG CAPSULE. PO SCH (20:02)
--- NOTE | 2018-07-09 20:17 | PDOC1 ---
History and Physical History of Present Illness History of Present Illness HPI per ED: Patient is a 58-year-old male who presents to the emergency department for evaluation. He was diagnosed with multiple myeloma about a week or so ago, and started treatments this week. He began his first Velcade injection earlier this week, and began his by mouth chemotherapy yesterday. The patient states this morning he awoke and just didn't feel well, with some general malaise and chills. He spent most of the day sleeping and this afternoon began experiencing fevers. His temperature was 103, and he took Tylenol at about 3 PM. He has felt short of breath but has not had any cough or congestion. He has had a mild sore throat earlier but that has improved at this time.. He denies any nausea or vomiting, focal abdominal pain., Chest pain, or cough. He has not had a focal headache, and has not had any mental status changes, although he has felt very weak and fatigued. There are no alleviating, or exacerbating factors to his symptoms otherwise. He called the on-call line of his oncologist's office, Dr. Johnson, who practices here to , and was sent to the emergency department. On my exam: fatigued but improved Past Medical History Cardiovascular: HTN, Hyperlipidemia Pulmonary: No pertinent hx GI: Diverticulosis, GERD, Gastritis Heme/Onc: No pertinent hx Hepatobiliary: No pertinent hx Psych: Anxiety Rheumatologic: No pertinent hx Infectious disease: No pertinent hx Renal/: No pertinent hx Endocrine: No pertinent hx Past Surgical History Past Surgical History: Tonsillectomy Family History Family History: No Significant Social History ALCOHOL: occassional Drugs: None Current Problem List Problem List Problems Medical Problems: (1) Fever and chills Status: Acute (2) Multiple myeloma Status: Acute Current Medications Current Medications Current Medications Medications (Trade) Dose Ordered Sig/Miguelina Start Time Stop Time Status Last Admin Dose Admin Acetaminophen (Tylenol) 500 mg PRN Q6HRS PRN 07/09/18 09:15 07/09/18 20:02 500 MG Acetaminophen/ Hydrocodone Bitart (Lortab 5/325) 1 tab PRN Q6HRS PRN 07/09/18 15:45 Acyclovir (Zovirax) 800 mg BID 07/09/18 21:00 07/09/18 20:01 800 MG Allopurinol (Zyloprim) 300 mg DAILY 07/10/18 09:00 Aspirin (Debbie Aspirin) 325 mg DAILY 07/10/18 09:00 Bortezomib (Velcade) 3 mg 1X ONCE 07/09/18 12:00 07/09/18 12:01 DC 07/09/18 12:22 3 MG Cefepime HCl (Maxipime) 1 gm Q8HRS 07/09/18 12:00 07/09/18 13:22 1 GM Cefepime HCl 1 gm/ Dextrose 50 ml @ 100 mls/hr Q8HRS 07/09/18 14:00 UNV Citalopram Hydrobromide (CeleXA) 20 mg DAILY 07/10/18 09:00 Fluticasone Propionate (Flonase) 2 spray DAILY 07/10/18 09:00 Gabapentin (Neurontin) 300 mg TID 07/09/18 21:00 07/09/18 20:02 300 MG Influenza Virus Vaccine (Afluria Trivalent [id number] Syringe) 0.5 ml ONCE ONCE 07/09/18 09:00 07/09/18 09:01 DC Ketorolac Tromethamine (Toradol 30mg Vial) 30 mg STK-MED ONCE 07/08/18 21:35 07/08/18 21:36 DC Levofloxacin/ Dextrose 100 ml @ 100 mls/hr Q24H 07/09/18 22:00 Morphine Sulfate (Morphine Sulfate) 2 mg PRN Q3HRS PRN 07/09/18 01:30 07/09/18 09:25 2 MG Ondansetron HCl (Zofran) 4 mg STK-MED ONCE 07/08/18 21:36 07/08/18 21:37 DC Pantoprazole Sodium (Protonix) 40 mg DAILYAC 07/09/18 16:30 07/09/18 17:09 40 MG Sodium Chloride 1,000 ml @ 75 mls/hr 1X ONCE 07/08/18 23:00 07/09/18 12:19 DC 07/08/18 23:00 75 MLS/HR Vancomycin HCl (Vanco Per Pharmacy) 1 each PRN DAILY PRN 07/09/18 11:30 07/09/18 16:38 1 EACH Vancomycin HCl (Vancomycin Trough Level) 1 each 1X ONCE 07/11/18 00:30 07/11/18 00:31 Vancomycin HCl 1.5 gm/Sodium Chloride 500 ml @ 250 mls/hr Q12H 07/10/18 01:00 Vancomycin HCl 2 gm/Sodium Chloride 500 ml @ 250 mls/hr 1X ONCE 07/09/18 12:00 07/09/18 13:59 DC 07/09/18 13:22 250 MLS/HR Allergies Allergies Allergies Coded Allergies Type Severity Reaction Last Updated Verified amoxicillin Allergy Intermediate 07/06/18 Yes Penicillins Adverse Reaction Intermediate Nausea and Vomiting 07/06/18 Yes ROS Review of System CONSTITUTIONAL: No fever or chills EYES: No recent changes SKIN: No rash or itching CARDIOVASCULAR: No chest pain, syncope, palpitations, or edema RESPIRATORY: No SOB or cough GASTROINTESTINAL: No nausea, vomiting or abdominal pain NEUROLOGICAL: No headaches or weakness ENDOCRINE: No cold or heat intolerance GENITOURINARY: No urgency or frequency of urination MUSCULOSKELETAL: No back pain or joint pain LYMPHATICS: No enlarged lymph nodes PSYCHIATRIC: No anxiety or depression Physical Exam Physical Exam GEN.: No apparent distress. Alert and oriented. HEENT: Head is normocephalic, atraumatic NECK: Supple. LUNGS: Clear to auscultation. HEART: RRR, S1, S2 present. Peripheral pulses intact ABDOMEN: Soft, nontender. Positive bowel sounds. EXTREMITIES: Without any cyanosis. NEUROLOGIC: Normal speech, normal tone PSYCHIATRIC: Normal affect, normal mood. SKIN: No ulcerations Vitals Vitals Vital Signs Date Time Temp Pulse Resp B/P (MAP) Pulse Ox O2 Delivery O2 Flow Rate FiO2 07/09/18 15:00 98.6 97 20 139/80 (99) 99 Room Air 98.6 Labs Labs Laboratory Tests Test 07/08/18 14:00 07/08/18 20:20 07/09/18 09:50 07/09/18 14:30 Urine Collection Type Unknown Urine Color Yellow Urine Clarity Clear Urine pH 7.0 Urine Specific [place] 1.010 Urine Protein Negative mg/dL (NEG-TRACE) Urine Glucose (UA) Negative mg/dL (NEG) Urine Ketones (Stick) Negative mg/dL (NEG) Urine Blood Negative (NEG) Urine Nitrite Negative (NEG) Urine Bilirubin Negative (NEG) Urine Urobilinogen Dipstick 0.2 mg/dL (0.2 mg/dL) Urine Leukocyte Esterase Negative (NEG) Urine RBC Rare /HPF (0-2) Urine WBC 0 /HPF (0-4) Urine Squamous Epithelial Cells None /LPF Urine Bacteria 0 /HPF (0-FEW) White Blood Count 12.3 x10^3/uL (4.0-11.0) 6.9 x10^3/uL (4.0-11.0) Red Blood Count 2.76 x10^6/uL (4.30-5.70) 2.50 x10^6/uL (4.30-5.70) Hemoglobin 9.4 g/dL (13.0-17.5) 8.4 g/dL (13.0-17.5) Hematocrit 26.5 % (39.0-53.0) 24.0 % (39.0-53.0) Mean Corpuscular Volume 96 fL (79-100) 96 fL (79-100) Mean Corpuscular Hemoglobin 34 pg (25-35) 34 pg (25-35) Mean Corpuscular Hemoglobin Concent 36 g/dL (31-37) 35 g/dL (31-37) Red Cell Distribution Width 22.6 % (11.5-14.5) 22.2 % (11.5-14.5) Platelet Count 220 x10^3/uL (140-400) 155 x10^3/uL (140-400) Neutrophils (%) (Auto) 91 % (31-73) 88 % (31-73) Lymphocytes (%) (Auto) 6 % (24-48) 7 % (24-48) Monocytes (%) (Auto) 3 % (0-9) 3 % (0-9) Eosinophils (%) (Auto) 1 % (0-3) 1 % (0-3) Basophils (%) (Auto) 0 % (0-3) 0 % (0-3) Neutrophils # (Auto) 11.2 x10^3uL (1.8-7.7) 6.1 x10^3uL (1.8-7.7) Lymphocytes # (Auto) 0.7 x10^3/uL (1.0-4.8) 0.5 x10^3/uL (1.0-4.8) Monocytes # (Auto) 0.3 x10^3/uL (0.0-1.1) 0.2 x10^3/uL (0.0-1.1) Eosinophils # (Auto) 0.1 x10^3/uL (0.0-0.7) 0.1 x10^3/uL (0.0-0.7) Basophils # (Auto) 0.0 x10^3/uL (0.0-0.2) 0.0 x10^3/uL (0.0-0.2) Segmented Neutrophils % 94 % (35-66) Lymphocytes % 6 % (24-48) Monocytes % 0 % (0-10) Toxic Vacuolation Slight Platelet Estimate Adequate (ADEQUATE) Anisocytosis Mod Sodium Level 134 mmol/L (136-145) 131 mmol/L (136-145) Potassium Level 3.9 mmol/L (3.5-5.1) 3.7 mmol/L (3.5-5.1) Chloride Level 96 mmol/L (98-107) 94 mmol/L (98-107) Carbon Dioxide Level 25 mmol/L (21-32) 23 mmol/L (21-32) Anion Gap 13 (6-14) 14 (6-14) Blood Urea Nitrogen 23 mg/dL (8-26) 18 mg/dL (8-26) Creatinine 1.3 mg/dL (0.7-1.3) 1.2 mg/dL (0.7-1.3) Estimated GFR (Cockcroft-Gault) 56.9 62.4 BUN/Creatinine Ratio 18 (6-20) Glucose Level 119 mg/dL (70-99) 152 mg/dL (70-99) Lactic Acid Level 1.9 mmol/L (0.4-2.0) Calcium Level 8.0 mg/dL (8.5-10.1) 7.2 mg/dL (8.5-10.1) Magnesium Level 1.9 mg/dL (1.8-2.4) Total Bilirubin 0.5 mg/dL (0.2-1.0) Aspartate Amino Transf (AST/SGOT) 31 U/L (15-37) Alanine Aminotransferase (ALT/SGPT) 25 U/L (16-63) Alkaline Phosphatase 79 U/L (46-116) Creatine Kinase 37 U/L (39-308) Troponin I Quantitative < 0.017 ng/mL (0.000-0.055) Total Protein 9.7 g/dL (6.4-8.2) Albumin 2.9 g/dL (3.4-5.0) Albumin/Globulin Ratio 0.4 (1.0-1.7) Lipase 246 U/L (73-393) Mycoplasma Serology (LAB) Negative (NEGATIVE) Influenza Type A Antigen Negative (NEGATIVE) Influenza Type B Antigen Negative (NEGATIVE) Group A Streptococcus Rapid Negative (NEGATIVE) Laboratory Tests Test 07/08/18 20:20 07/09/18 09:50 07/09/18 14:30 White Blood Count 12.3 x10^3/uL (4.0-11.0) 6.9 x10^3/uL (4.0-11.0) Red Blood Count 2.76 x10^6/uL (4.30-5.70) 2.50 x10^6/uL (4.30-5.70) Hemoglobin 9.4 g/dL (13.0-17.5) 8.4 g/dL (13.0-17.5) Hematocrit 26.5 % (39.0-53.0) 24.0 % (39.0-53.0) Mean Corpuscular Volume 96 fL (79-100) 96 fL (79-100) Mean Corpuscular Hemoglobin 34 pg (25-35) 34 pg (25-35) Mean Corpuscular Hemoglobin Concent 36 g/dL (31-37) 35 g/dL (31-37) Red Cell Distribution Width 22.6 % (11.5-14.5) 22.2 % (11.5-14.5) Platelet Count 220 x10^3/uL (140-400) 155 x10^3/uL (140-400) Neutrophils (%) (Auto) 91 % (31-73) 88 % (31-73) Lymphocytes (%) (Auto) 6 % (24-48) 7 % (24-48) Monocytes (%) (Auto) 3 % (0-9) 3 % (0-9) Eosinophils (%) (Auto) 1 % (0-3) 1 % (0-3) Basophils (%) (Auto) 0 % (0-3) 0 % (0-3) Neutrophils # (Auto) 11.2 x10^3uL (1.8-7.7) 6.1 x10^3uL (1.8-7.7) Lymphocytes # (Auto) 0.7 x10^3/uL (1.0-4.8) 0.5 x10^3/uL (1.0-4.8) Monocytes # (Auto) 0.3 x10^3/uL (0.0-1.1) 0.2 x10^3/uL (0.0-1.1) Eosinophils # (Auto) 0.1 x10^3/uL (0.0-0.7) 0.1 x10^3/uL (0.0-0.7) Basophils # (Auto) 0.0 x10^3/uL (0.0-0.2) 0.0 x10^3/uL (0.0-0.2) Segmented Neutrophils % 94 % (35-66) Lymphocytes % 6 % (24-48) Monocytes % 0 % (0-10) Toxic Vacuolation Slight Platelet Estimate Adequate (ADEQUATE) Anisocytosis Mod Sodium Level 134 mmol/L (136-145) 131 mmol/L (136-145) Potassium Level 3.9 mmol/L (3.5-5.1) 3.7 mmol/L (3.5-5.1) Chloride Level 96 mmol/L (98-107) 94 mmol/L (98-107) Carbon Dioxide Level 25 mmol/L (21-32) 23 mmol/L (21-32) Anion Gap 13 (6-14) 14 (6-14) Blood Urea Nitrogen 23 mg/dL (8-26) 18 mg/dL (8-26) Creatinine 1.3 mg/dL (0.7-1.3) 1.2 mg/dL (0.7-1.3) Estimated GFR (Cockcroft-Gault) 56.9 62.4 BUN/Creatinine Ratio 18 (6-20) Glucose Level 119 mg/dL (70-99) 152 mg/dL (70-99) Lactic Acid Level 1.9 mmol/L (0.4-2.0) Calcium Level 8.0 mg/dL (8.5-10.1) 7.2 mg/dL (8.5-10.1) Magnesium Level 1.9 mg/dL (1.8-2.4) Total Bilirubin 0.5 mg/dL (0.2-1.0) Aspartate Amino Transf (AST/SGOT) 31 U/L (15-37) Alanine Aminotransferase (ALT/SGPT) 25 U/L (16-63) Alkaline Phosphatase 79 U/L (46-116) Creatine Kinase 37 U/L (39-308) Troponin I Quantitative < 0.017 ng/mL (0.000-0.055) Total Protein 9.7 g/dL (6.4-8.2) Albumin 2.9 g/dL (3.4-5.0) Albumin/Globulin Ratio 0.4 (1.0-1.7) Lipase 246 U/L (73-393) Mycoplasma Serology (LAB) Negative (NEGATIVE) Influenza Type A Antigen Negative (NEGATIVE) Influenza Type B Antigen Negative (NEGATIVE) Group A Streptococcus Rapid Negative (NEGATIVE) VTE Prophylaxis Ordered VTE Prophylaxis Devices: No VTE Pharmacological Prophylaxi: Contraindicated Assessment/Plan Assessment/Plan ID C/S ANBX HOLD REVLIMID H/O C/S BISI WINTER MD Jul 09, 2018 20:17
--- NOTE | 2018-07-09 21:00 | CONS ---
DATE OF CONSULTATION: 07/09/2018 MEDICAL ONCOLOGY CONSULTATION REQUESTING PHYSICIAN: Dr. Nas Monroe. REASON FOR CONSULTATION: Multiple myeloma, on chemotherapy. HISTORY OF PRESENT ILLNESS: The patient is a 58-year-old gentleman who noticed worsening fatigue since December 2017. CBC on 06/11/2018 revealed anemia with a hemoglobin of 8.1, and chemistry revealed a total protein of 12.7 with a globulin level of 10.3 and albumin of 2.4. Colonoscopy on 06/11/[address] Kamran Ramos revealed internal hemorrhoids and a 6 mm polyp. Upper endoscopy revealed gastric polyps. He has also had cholecystectomy in March 2018 for management of right upper quadrant abdominal pain. He presented to [facility] on 06/25/2018 with a hemoglobin of 6.9 and he was admitted to [facility] and he was given blood transfusion. His serum protein electrophoresis on 06/18/2018 revealed an M-spike of 6.7 and immunofixation revealed IgA kappa monoclonal antibody. IgA level was more than 6400. Free kappa light chain was at 1253 with a kappa lambda ratio of 417.43. Beta 2 microglobulin was elevated at 3.8. He underwent a skeletal survey on 06/18/2018, which revealed several small calvarial lucencies raising the possibility of myelomatous lesions versus venous lakes. He underwent a bone marrow aspiration and biopsy on 06/25/2018, which revealed plasma cell neoplasm showing kappa light chain restriction. Plasma cells comprised of about 40-50% of the nucleated marrow cells. He received a course of Decadron from 06/25/2018 at 40 mg daily for 4 days. After confirmation of diagnosis, he was started on chemotherapy with Velcade, Revlimid and Decadron. Velcade and Decadron was initiated on 07/06/2018. He started Revlimid on 07/08/2018. Even before he started the Revlimid on 07/08/2018, he started noticing fever and body aches and pains. His temperature was elevated at home and hence, he was brought into the Emergency Room. His temperature was 102 degrees and hence, he was admitted to [facility] for further management. He has a dry cough, which is nonproductive. PAST MEDICAL HISTORY: Anxiety, hypercholesterolemia, hypertension, diverticulosis, GERD, gastritis, anxiety. PAST SURGICAL HISTORY: Tonsillectomy. SOCIAL HISTORY: Former smoker. FAMILY HISTORY: Negative for multiple myeloma. There is history of diabetes and hypertension in the family. REVIEW OF SYSTEMS: A 12-point review of system was performed. Pertinent positives are mentioned in the history of present illness. Rest of the system review is negative. PHYSICAL EXAMINATION: GENERAL APPEARANCE: The patient is a 58-year-old gentleman who is well developed and nourished and in no acute cardiorespiratory distress. VITAL SIGNS: Blood pressure 97/55, temperature 100.3. HEENT: Head atraumatic, normocephalic. Eyes, no icterus. NECK: Supple. CHEST: Bilaterally symmetrical. HEART: S1, S2 normal. ABDOMEN: Soft, nontender, no hepatosplenomegaly. CENTRAL NERVOUS SYSTEM: No focal deficits. LYMPHATICS: No lymphadenopathy. SKIN: No rashes. PSYCHOLOGIC: Mood and affect are appropriate. MUSCULOSKELETAL: No joint effusions. LABORATORY DATA: From 07/09/2018, WBC 6.9, hemoglobin 8.4, platelet count 155. Creatinine 1.2, calcium 7.2, total protein 9.7, albumin 2.9. RADIOLOGICAL STUDIES: Chest x-ray on 07/09/2018 reveals mild prominent diffuse interstitial markings, which could be from atypical or viral infection. IMPRESSION AND PLAN: 1. IgA kappa multiple myeloma diagnosed by a bone marrow biopsy on 06/25/2018. He received Decadron 40 mg daily for 4 days from 06/25/2018. After confirmation of diagnosis, he was started on chemotherapy with Velcade, Decadron and Revlimid from 07/06/2018. Revlimid was not available until 07/08/2018, and he took 1 dose on 07/08/2018. He was hospitalized subsequently and hence, I have advised him to hold Revlimid until his fever and infection is resolved. I will proceed with cycle #1, day #4 of Velcade on 07/09/2018. I discussed with the registered nurse. I also consulted Infectious Disease, and I discussed with Dr. Jay Terrazas. 2. Fever, which could be infection versus drug reaction. There is suggestion of atypical infection per chest x-ray. Hence, I consulted Infectious Diseases. Further management regarding antibiotics per Infectious Diseases. 3. Anemia. Hemoglobin worse at 8.4. Continue to monitor. Transfuse if hemoglobin drops to below 7. PHILLIP FUNEZ MD DR: Kari JOB#: [id number] / [id number] TONG
[2018-07-09 23:00] VITALS: BP 136/71
[2018-07-10] MEDS: VANCOMYCIN 1.5 GM in IV NORMAL SALINE 500ML BAG 500 ML IV SCH ×2 (01:02→13:26)
[2018-07-10 03:00] VITALS: BP 124/79
[2018-07-10] MEDS: CEFEPIME HCL IV Push 1 GM VIAL. IVP SCH ×3 (06:38→21:09)
[2018-07-10] MEDS: ACETAMINOPHEN 500 MG TABLET PO PRN ×2 (06:39→19:37)
[2018-07-10 07:00] VITALS: BP 128/74
[2018-07-10 07:16] LABS: CREATININE 0.9 mg/dL (0.7-1.3)
[2018-07-10] MEDS: ACYCLOVIR 200 MG CAPSULE. PO SCH ×2 (08:23→21:09)
[2018-07-10] MEDS: ALLOPURINOL 300 MG TABLET. PO SCH (08:24)
[2018-07-10] MEDS: GABAPENTIN 300 MG CAPSULE. PO SCH ×3 (08:24→21:08)
[2018-07-10] MEDS: ASPIRIN 325 MG TABLET PO SCH (08:24)
[2018-07-10] MEDS: PANTOPRAZOLE 40 MG TABLET.DR. PO SCH (08:24)
[2018-07-10] MEDS: CITALOPRAM 20 MG TABLET. PO SCH (08:24)
[2018-07-10] MEDS: FLUTICASONE 50MCG/NASAL SPRAY 16GM BOTTLE. NS SCH (08:25)
[2018-07-10] MEDS ORDERED: FLUTICASONE 50MCG/NASAL SPRAY 16GM BOTTLE. NS SCH (09:00)
[2018-07-10] MEDS: VANCOMYCIN PER PHARMACY MC PRN (09:07)
[2018-07-10 11:00] VITALS: BP 130/79
--- NOTE | 2018-07-10 13:21 | PDOC ---
Infectious Disease Note Subjective Subjective +some sinus drainage, a right earache and sore throat + diarrhea No fever last 24 hours Denies VALENZUELA/C/S/aches/N/V/cramps ROS ROS per HPI otherwise neg Vital Sign Vital Signs Vital Signs Date Time Temp Pulse Resp B/P (MAP) Pulse Ox O2 Delivery O2 Flow Rate FiO2 07/10/18 11:00 98.1 94 18 130/79 (96) 99 Room Air 98.1 Physical Exam PHYSICAL EXAM GENERAL: Standing at the bed side watching TV, NAD HEENT: Pupils equal and reactive. Oral cavity, pharynx is clear. NECK: Supple, no JVD. LUNGS: Clear HEART: S1, S2. ABDOMEN: Obese, soft, nontender, nondistended, positive bowel sounds. EXTREMITIES: No clubbing, cyanosis or gross edema. SKIN: Warm to touch without signs of rash. Tattoo NEUROLOGIC: Nonfocal and appropriate. PIV Labs Lab Laboratory Tests Test 07/09/18 14:30 07/10/18 06:20 Influenza Type A Antigen Negative (NEGATIVE) Influenza Type B Antigen Negative (NEGATIVE) Group A Streptococcus Rapid Negative (NEGATIVE) Creatinine 0.9 mg/dL (0.7-1.3) Estimated GFR (Cockcroft-Gault) 87.0 Micro Microbiology 07/09/18 Blood Culture - Preliminary, Resulted NO GROWTH AFTER 1 DAY Objective Assessment Fever, questionable infection versus drug reaction. Leukocytosis, improved, but also has post-dexamethasone. Multiple myeloma. PENICILLIN ALLERGIES, is more of an intolerance. Plan Plan of Care Continue vancomycin, cefepime and Levaquin Mycoplasma Strep pneumo antigen & Legionella pending Resp viral panel - not available Blood cults NGTD Strep screen neg Patient seen and examined. Chart reviewed in detail. Case discussed with [employer]. I agree with the above Plan LEE ANN FELTON APRN Jul 10, 2018 13:21 SALLY ORDONEZ MD Jul 10, 2018 18:17
[2018-07-10 15:00] VITALS: BP 143/84
[2018-07-10 19:00] VITALS: BP 134/78
[2018-07-10 23:00] VITALS: BP 136/78
--- NOTE | 2018-07-10 23:03 | PDOC ---
PROGRESS NOTES History of Present Illness History of Present Illness Plan vancomycin, cefepime and Levaquin IV per ID Strep pneumo antigen & Legionella pending Resp viral panel - not available Blood cults NGTD Strep screen neg Vitals Vitals Vital Signs Date Time Temp Pulse Resp B/P (MAP) Pulse Ox O2 Delivery O2 Flow Rate FiO2 07/10/18 19:00 97.9 82 18 134/78 (96) 100 Room Air 97.9 Physical Exam Physical Exam GENERAL: Standing at the bed side watching TV, NAD HEENT: Pupils equal and reactive. Oral cavity, pharynx is clear. NECK: Supple, no JVD. LUNGS: Clear HEART: S1, S2. ABDOMEN: Obese, soft, nontender, nondistended, positive bowel sounds. EXTREMITIES: No clubbing, cyanosis or gross edema. SKIN: Warm to touch without signs of rash. Tattoo NEUROLOGIC: Nonfocal and appropriate. PIV Labs LABS Laboratory Tests Test 07/10/18 06:20 Creatinine 0.9 mg/dL (0.7-1.3) Estimated GFR (Cockcroft-Gault) 87.0 Assessment and Plan Assessmemt and Plan Problems Medical Problems: (1) Fever and chills Status: Acute (2) Multiple myeloma Status: Acute Comment Review of Relevant I have reviewed the following items cristina (where applicable) has been applied. Labs Laboratory Tests Test 07/09/18 09:50 07/09/18 14:30 07/10/18 06:20 White Blood Count 6.9 x10^3/uL (4.0-11.0) Red Blood Count 2.50 x10^6/uL (4.30-5.70) Hemoglobin 8.4 g/dL (13.0-17.5) Hematocrit 24.0 % (39.0-53.0) Mean Corpuscular Volume 96 fL (79-100) Mean Corpuscular Hemoglobin 34 pg (25-35) Mean Corpuscular Hemoglobin Concent 35 g/dL (31-37) Red Cell Distribution Width 22.2 % (11.5-14.5) Platelet Count 155 x10^3/uL (140-400) Neutrophils (%) (Auto) 88 % (31-73) Lymphocytes (%) (Auto) 7 % (24-48) Monocytes (%) (Auto) 3 % (0-9) Eosinophils (%) (Auto) 1 % (0-3) Basophils (%) (Auto) 0 % (0-3) Neutrophils # (Auto) 6.1 x10^3uL (1.8-7.7) Lymphocytes # (Auto) 0.5 x10^3/uL (1.0-4.8) Monocytes # (Auto) 0.2 x10^3/uL (0.0-1.1) Eosinophils # (Auto) 0.1 x10^3/uL (0.0-0.7) Basophils # (Auto) 0.0 x10^3/uL (0.0-0.2) Sodium Level 131 mmol/L (136-145) Potassium Level 3.7 mmol/L (3.5-5.1) Chloride Level 94 mmol/L (98-107) Carbon Dioxide Level 23 mmol/L (21-32) Anion Gap 14 (6-14) Blood Urea Nitrogen 18 mg/dL (8-26) Creatinine 1.2 mg/dL (0.7-1.3) 0.9 mg/dL (0.7-1.3) Estimated GFR (Cockcroft-Gault) 62.4 87.0 Glucose Level 152 mg/dL (70-99) Calcium Level 7.2 mg/dL (8.5-10.1) Mycoplasma Serology (LAB) Negative (NEGATIVE) Influenza Type A Antigen Negative (NEGATIVE) Influenza Type B Antigen Negative (NEGATIVE) Group A Streptococcus Rapid Negative (NEGATIVE) Laboratory Tests Test 07/10/18 06:20 Creatinine 0.9 mg/dL (0.7-1.3) Estimated GFR (Cockcroft-Gault) 87.0 Microbiology 07/09/18 Blood Culture - Preliminary, Resulted NO GROWTH AFTER 1 DAY Medications Current Medications Acetaminophen (Tylenol) 1,000 mg 1X ONCE PO Last administered on 07/08/18at 20: 00; Start 07/08/18 at 20:00; Stop 07/08/18 at 20:01; Status DC Sodium Chloride 1,000 ml @ 1,000 mls/hr Q1H IV Last administered on 07/08/18at 19:57; Start 07/08/18 at 19:57; Stop 07/08/18 at 20:56; Status DC Ketorolac Tromethamine (Toradol 30mg Vial) 30 mg 1X ONCE IV Last administered on 07/08/18at 22:00; Start 07/08/18 at 22:00; Stop 07/08/18 at 22:01; Status DC Ondansetron HCl (Zofran) 4 mg 1X ONCE IV Last administered on 07/08/18at 22:00 ; Start 07/08/18 at 22:00; Stop 07/08/18 at 22:01; Status DC Ketorolac Tromethamine (Toradol 30mg Vial) 30 mg STK-MED ONCE .ROUTE ; Start at 21:35; Stop 07/08/18 at 21:36; Status DC Ondansetron HCl (Zofran) 4 mg STK-MED ONCE .ROUTE ; Start 07/08/18 at 21:36; Stop 07/08/18 at 21:37; Status DC Levofloxacin/ Dextrose 150 ml @ 100 mls/hr 1X ONCE IV Last administered on at 22:30; Start 07/08/18 at 22:30; Stop 07/08/18 at 23:59; Status DC Sodium Chloride 1,000 ml @ 75 mls/hr 1X ONCE IV Last administered on at 23:00; Start 07/08/18 at 23:00; Stop 07/09/18 at 12:19; Status DC Influenza Virus Vaccine (Afluria Trivalent [id number] Syringe) 0.5 ml ONCE ONCE VAX IM ; Start 07/09/18 at 09:00; Stop 07/09/18 at 09:01; Status DC Morphine Sulfate (Morphine Sulfate) 2 mg PRN Q3HRS PRN IV SEVERE PAIN Last administered on 07/09/18at 09:25; Start 07/09/18 at 01:30 Acetaminophen (Tylenol) 500 mg PRN Q6HRS PRN PO MILD PAIN / TEMP Last administered on 07/10/18at 19:37; Start 07/09/18 at 09:15 Levofloxacin/ Dextrose 100 ml @ 100 mls/hr Q24H IV Last administered on at 21:09; Start 07/09/18 at 22:00 Cefepime HCl 1 gm/ Dextrose 50 ml @ 100 mls/hr Q8HRS IV ; Start 07/09/18 at 14: 00; Status UNV Vancomycin HCl (Vanco Per Pharmacy) 1 each PRN DAILY PRN MC SEE COMMENTS Last administered on 07/10/18at 09:07; Start 07/09/18 at 11:30 Bortezomib (Velcade) 3 mg 1X ONCE SQ Last administered on 07/09/18at 12:22; Start 07/09/18 at 12:00; Stop 07/09/18 at 12:01; Status DC Cefepime HCl (Maxipime) 1 gm Q8HRS IVP Last administered on 07/10/18at 21:09; Start 07/09/18 at 12:00 Vancomycin HCl 2 gm/Sodium Chloride 500 ml @ 250 mls/hr 1X ONCE IV Last administered on 07/09/18at 13:22; Start 07/09/18 at 12:00; Stop 07/09/18 at 13:59 ; Status DC Allopurinol (Zyloprim) 300 mg DAILY PO Last administered on 07/10/18at 08:24; Start 07/10/18 at 09:00 Aspirin (Debbie Aspirin) 325 mg DAILY PO Last administered on 07/10/18at 08:24; Start 07/10/18 at 09:00 Acetaminophen/ Hydrocodone Bitart (Lortab 5/325) 1 tab PRN Q6HRS PRN PO MODERATE-SEVERE PAIN; Start 07/09/18 at 15:45 Acyclovir (Zovirax) 800 mg BID PO Last administered on 07/10/18at 21:09; Start 07/09/18 at 21:00 Citalopram Hydrobromide (CeleXA) 20 mg DAILY PO Last administered on 07/10/18at 08:24; Start 07/10/18 at 09:00 Fluticasone Propionate (Flonase) 2 spray DAILY NS ; Start 07/10/18 at 09:00; Status Cancel Gabapentin (Neurontin) 300 mg TID PO Last administered on 07/10/18at 21:08; Start 07/09/18 at 21:00 Pantoprazole Sodium (Protonix) 40 mg DAILYAC PO Last administered on 07/10/18at 08:24; Start 07/09/18 at 16:30 Fluticasone Propionate (Flonase) 2 spray DAILY NS Last administered on at 08:25; Start 07/10/18 at 09:00 Vancomycin HCl 1.5 gm/Sodium Chloride 500 ml @ 250 mls/hr Q12H IV Last administered on 07/10/18at 13:26; Start 07/10/18 at 01:00 Vancomycin HCl (Vancomycin Trough Level) 1 each 1X ONCE MC ; Start 07/11/18 at 00:30; Stop 07/11/18 at 00:31 Active Scripts Active Reported Revlimid (Lenalidomide) 25 Mg Capsule 25 Mg PO Gabapentin 300 Mg Capsule 300 Mg PO BID Sulfamethoxazole-Tmp Ds Tablet (Sulfamethoxazole/Trimethoprim) 1 Each Tablet 1 Tab PO BID Dexamethasone 4 Mg Tablet 40 Mg PO WEEKLY Acyclovir 800 Mg Tablet 1 Tab PO BID Aspirin 325 Mg Tablet 1 Tab PO DAILY Hyzaar 100-25 Tablet (Losartan/Hydrochlorothiazide) 1 Each Tablet 1 Each PO DAILY Hydrocodone-Apap 5-325 (Hydrocodone Bit/Acetaminophen) 1 Each Tablet 1 Tab PO PRN Q6HRS PRN Escitalopram Oxalate 10 Mg Tablet 10 Mg PO DAILY Flonase Allergy Relief (Fluticasone Propionate) 9.9 Ml [place].susp 2 Sprays NS DAILY Meloxicam 7.5 Mg Tablet 7.5 Mg PO DAILY Prilosec Otc (Omeprazole Magnesium) 20 Mg Tablet.dr 40 Mg PO DAILY Allopurinol 300 Mg Tablet 300 Mg PO DAILY Vitals/I & O Vital Sign - Last 24 Hours 07/10/18 07/10/18 07/10/18 07/10/18 03:00 07:00 08:00 11:00 Temp 97.9 98.1 98.1 97.9 98.1 98.1 Pulse 97 90 94 Resp 18 18 18 B/P (MAP) 124/79 (94) 128/74 (92) 130/79 (96) Pulse Ox 97 96 99 O2 Delivery Room Air Room Air Room Air Room Air 07/10/18 07/10/18 15:00 19:00 Temp 97.5 97.9 97.5 97.9 Pulse 88 82 Resp 18 18 B/P (MAP) 143/84 (103) 134/78 (96) Pulse Ox 100 100 O2 Delivery Room Air Room Air Intake and Output 07/09/18 07/09/18 07/10/18 15:00 23:00 07:00 Intake Total 360 ml 700 ml Output Total 700 ml 600 ml Balance -340 ml 100 ml OBIOZOR,BISI C MD Jul 10, 2018 23:03
[2018-07-11 01:33] LABS: VANC TR 13.5 mcg/mL (10.0-20.0)
[2018-07-11] MEDS: VANCOMYCIN 1.5 GM in IV NORMAL SALINE 500ML BAG 500 ML IV SCH ×2 (02:03→13:36)
[2018-07-11] MEDS: HYDROcodone/APAP 5/325MG 1 TAB TABLET PO PRN ×3 (02:04→15:06)
[2018-07-11 03:00] VITALS: BP 121/62
[2018-07-11] MEDS: VANCOMYCIN PER PHARMACY MC PRN ×2 (03:11→08:23)
[2018-07-11] MEDS: CEFEPIME HCL IV Push 1 GM VIAL. IVP SCH ×3 (05:45→21:11)
[2018-07-11] MEDS: PANTOPRAZOLE 40 MG TABLET.DR. PO SCH (05:45)
[2018-07-11 07:00] VITALS: BP 128/84
[2018-07-11 11:00] VITALS: BP 122/78
[2018-07-11 11:18] LABS: BILIRUBIN,URINE NEGATIVE (NEG); CLARITY,URINE CLEAR; COLOR,URINE YELLOW; NITRITE,URINE NEGATIVE (NEG); PROTEIN,URINE NEGATIVE (NEG-TRACE); UROBILINOGEN,URINE 0.2 mg/dL (0.2 mg/dL)
[2018-07-11 11:29] LABS: BACTERIA,URINE 0 /HPF (0-FEW); RBC,URINE 0 /HPF (0-2); WBC,URINE 0 /HPF (0-4)
[2018-07-11 13:15] LABS: CALCIUM 7.4 mg/dL (8.5-10.1); CREATININE 0.8 mg/dL (0.7-1.3); GFR 99.6; POTASSIUM 3.4 mmol/L (3.5-5.1)
[2018-07-11 13:20] LABS: ALBUMIN 2.8 g/dL (3.4-5.0); ALBUMIN/GLOBULIN RATIO 0.5 (1.0-1.7); TOTAL BILIRUBIN 0.4 mg/dL (0.2-1.0); TOTAL PROTEIN 8.5 g/dL (6.4-8.2)
[2018-07-11 13:24] LABS: BASO % 0 % (0-3); EOS # 0.1 x10^3/uL (0.0-0.7); EOS % 3 % (0-3); HEMATOCRIT 24.3 % (39.0-53.0); HEMOGLOBIN 8.6 g/dL (13.0-17.5); LYMPH % 24 % (24-48); MEAN CORPUSCULAR HEMOGLOBIN 34 pg (25-35); MEAN CORPUSCULAR HGB CONC 35 g/dL (31-37); MEAN CORPUSCULAR VOLUME 97 fL (79-100); MONO # 0.3 x10^3/uL (0.0-1.1); MONO % 8 % (0-9); NEUT # 2.8 x10^3uL (1.8-7.7); NEUT % 65 % (31-73); PLATELET COUNT 137 x10^3/uL (140-400); RED BLOOD COUNT 2.51 x10^6/uL (4.30-5.70); RED CELL DISTRIBUTION WIDTH 21.9 % (11.5-14.5); WHITE BLOOD COUNT 4.2 x10^3/uL (4.0-11.0)
[2018-07-11] MEDS: FLUTICASONE 50MCG/NASAL SPRAY 16GM BOTTLE. NS SCH (13:33)
[2018-07-11] MEDS: ACYCLOVIR 200 MG CAPSULE. PO SCH ×2 (13:33→21:11)
[2018-07-11] MEDS: GABAPENTIN 300 MG CAPSULE. PO SCH ×3 (13:34→21:11)
[2018-07-11] MEDS: ALLOPURINOL 300 MG TABLET. PO SCH (13:34)
[2018-07-11] MEDS: ASPIRIN 325 MG TABLET PO SCH (13:34)
[2018-07-11] MEDS: CITALOPRAM 20 MG TABLET. PO SCH (13:34)
[2018-07-11 15:00] VITALS: BP 116/60
--- NOTE | 2018-07-11 17:06 | PDOC ---
Infectious Disease Note Subjective Subjective c/o lower back and groin pain + urinary frequency and straining No fevers last 24 hours Denies chills/sweats/hematuria/cough/SOA/N/V/D ROS ROS per HPI Vital Sign Vital Signs Vital Signs Date Time Temp Pulse Resp B/P (MAP) Pulse Ox O2 Delivery O2 Flow Rate FiO2 07/11/18 16:06 16 Room Air 07/11/18 11:00 97.5 88 122/78 (93) 100 97.5 Physical Exam PHYSICAL EXAM GENERAL: Standing at the bed side watching TV, NAD HEENT: Pupils equal and reactive. Oral cavity, pharynx is clear. NECK: Supple, no JVD. LUNGS: Clear HEART: S1, S2. ABDOMEN: Obese, soft, nontender, nondistended, positive bowel sounds. EXTREMITIES: No clubbing, cyanosis or gross edema. SKIN: Warm to touch without signs of rash. Tattoo NEUROLOGIC: Nonfocal and appropriate. PIV Labs Lab Laboratory Tests Test 07/11/18 00:35 07/11/18 10:55 07/11/18 12:30 Vancomycin Level Trough 13.5 mcg/mL (10.0-20.0) Vancomycin Last Dose Date [id number] Vancomycin Last Dose Time 1300 Urine Collection Type Unknown Urine Color Yellow Urine Clarity Clear Urine pH 6.0 Urine Specific [place] 1.010 Urine Protein Negative mg/dL (NEG-TRACE) Urine Glucose (UA) Negative mg/dL (NEG) Urine Ketones (Stick) Negative mg/dL (NEG) Urine Blood Negative (NEG) Urine Nitrite Negative (NEG) Urine Bilirubin Negative (NEG) Urine Urobilinogen Dipstick 0.2 mg/dL (0.2 mg/dL) Urine Leukocyte Esterase Negative (NEG) Urine RBC 0 /HPF (0-2) Urine WBC 0 /HPF (0-4) Urine Bacteria 0 /HPF (0-FEW) Urine Mucus Slight /LPF White Blood Count 4.2 x10^3/uL (4.0-11.0) Red Blood Count 2.51 x10^6/uL (4.30-5.70) Hemoglobin 8.6 g/dL (13.0-17.5) Hematocrit 24.3 % (39.0-53.0) Mean Corpuscular Volume 97 fL (79-100) Mean Corpuscular Hemoglobin 34 pg (25-35) Mean Corpuscular Hemoglobin Concent 35 g/dL (31-37) Red Cell Distribution Width 21.9 % (11.5-14.5) Platelet Count 137 x10^3/uL (140-400) Neutrophils (%) (Auto) 65 % (31-73) Lymphocytes (%) (Auto) 24 % (24-48) Monocytes (%) (Auto) 8 % (0-9) Eosinophils (%) (Auto) 3 % (0-3) Basophils (%) (Auto) 0 % (0-3) Neutrophils # (Auto) 2.8 x10^3uL (1.8-7.7) Lymphocytes # (Auto) 1.0 x10^3/uL (1.0-4.8) Monocytes # (Auto) 0.3 x10^3/uL (0.0-1.1) Eosinophils # (Auto) 0.1 x10^3/uL (0.0-0.7) Basophils # (Auto) 0.0 x10^3/uL (0.0-0.2) Sodium Level 138 mmol/L (136-145) Potassium Level 3.4 mmol/L (3.5-5.1) Chloride Level 101 mmol/L (98-107) Carbon Dioxide Level 25 mmol/L (21-32) Anion Gap 12 (6-14) Blood Urea Nitrogen 9 mg/dL (8-26) Creatinine 0.8 mg/dL (0.7-1.3) Estimated GFR (Cockcroft-Gault) 99.6 BUN/Creatinine Ratio 11 (6-20) Glucose Level 103 mg/dL (70-99) Calcium Level 7.4 mg/dL (8.5-10.1) Total Bilirubin 0.4 mg/dL (0.2-1.0) Aspartate Amino Transf (AST/SGOT) 25 U/L (15-37) Alanine Aminotransferase (ALT/SGPT) 22 U/L (16-63) Alkaline Phosphatase 79 U/L (46-116) Total Protein 8.5 g/dL (6.4-8.2) Albumin 2.8 g/dL (3.4-5.0) Albumin/Globulin Ratio 0.5 (1.0-1.7) Micro Microbiology 07/09/18 Blood Culture - Preliminary, Resulted NO GROWTH AFTER 2 DAY Objective Assessment Fever, questionable infection versus drug reaction. improved Leukocytosis, improved, but also has post-dexamethasone. Multiple myeloma. PENICILLIN ALLERGIES, is more of an intolerance. Urinary frequency, UA neg Plan Plan of Care Continue vancomycin, cefepime and Levaquin Trough 13.5 Mycoplasma neg Strep pneumo antigen & Legionella pending Resp viral panel - not available Blood cults NGTD Strep screen neg Post-void bladder scan D/w Pt seen and examined. Chart reviewed in detail. Case discussed with LABOR LAW PROFESSOR. Agree with above plan LEE ANN FELTON APRN Jul 11, 2018 17:06 SALLY ORDONEZ MD Jul 11, 2018 18:38
[2018-07-11 19:00] VITALS: BP 143/90
[2018-07-11] MEDS: MORPHINE SULFATE 2 MG/ML VIAL. IV PRN (21:14)
[2018-07-11 23:00] VITALS: BP 134/79
--- NOTE | 2018-07-11 23:51 | PDOC ---
PROGRESS NOTES History of Present Illness History of Present Illness Plan vancomycin, cefepime and Levaquin IV per ID Strep pneumo antigen & Legionella pending Resp viral panel - not available Blood cults NGTD Strep screen neg Overall pt is improving Did c/o chills thought to be related to Velcade as he c/o similar symptoms on last administration Vitals Vitals Vital Signs Date Time Temp Pulse Resp B/P (MAP) Pulse Ox O2 Delivery O2 Flow Rate FiO2 07/11/18 21:14 Room Air 07/11/18 19:00 97.7 89 18 143/90 (107) 100 97.7 Physical Exam Physical Exam GENERAL: Standing at the bed side watching TV, NAD HEENT: Pupils equal and reactive. Oral cavity, pharynx is clear. NECK: Supple, no JVD. LUNGS: Clear HEART: S1, S2. ABDOMEN: Obese, soft, nontender, nondistended, positive bowel sounds. EXTREMITIES: No clubbing, cyanosis or gross edema. SKIN: Warm to touch without signs of rash. Tattoo NEUROLOGIC: Nonfocal and appropriate. PIV Labs LABS Laboratory Tests Test 07/11/18 00:35 07/11/18 10:55 07/11/18 12:30 Vancomycin Level Trough 13.5 mcg/mL (10.0-20.0) Vancomycin Last Dose Date [id number] Vancomycin Last Dose Time 1300 Urine Collection Type Unknown Urine Color Yellow Urine Clarity Clear Urine pH 6.0 Urine Specific [place] 1.010 Urine Protein Negative mg/dL (NEG-TRACE) Urine Glucose (UA) Negative mg/dL (NEG) Urine Ketones (Stick) Negative mg/dL (NEG) Urine Blood Negative (NEG) Urine Nitrite Negative (NEG) Urine Bilirubin Negative (NEG) Urine Urobilinogen Dipstick 0.2 mg/dL (0.2 mg/dL) Urine Leukocyte Esterase Negative (NEG) Urine RBC 0 /HPF (0-2) Urine WBC 0 /HPF (0-4) Urine Bacteria 0 /HPF (0-FEW) Urine Mucus Slight /LPF White Blood Count 4.2 x10^3/uL (4.0-11.0) Red Blood Count 2.51 x10^6/uL (4.30-5.70) Hemoglobin 8.6 g/dL (13.0-17.5) Hematocrit 24.3 % (39.0-53.0) Mean Corpuscular Volume 97 fL (79-100) Mean Corpuscular Hemoglobin 34 pg (25-35) Mean Corpuscular Hemoglobin Concent 35 g/dL (31-37) Red Cell Distribution Width 21.9 % (11.5-14.5) Platelet Count 137 x10^3/uL (140-400) Neutrophils (%) (Auto) 65 % (31-73) Lymphocytes (%) (Auto) 24 % (24-48) Monocytes (%) (Auto) 8 % (0-9) Eosinophils (%) (Auto) 3 % (0-3) Basophils (%) (Auto) 0 % (0-3) Neutrophils # (Auto) 2.8 x10^3uL (1.8-7.7) Lymphocytes # (Auto) 1.0 x10^3/uL (1.0-4.8) Monocytes # (Auto) 0.3 x10^3/uL (0.0-1.1) Eosinophils # (Auto) 0.1 x10^3/uL (0.0-0.7) Basophils # (Auto) 0.0 x10^3/uL (0.0-0.2) Sodium Level 138 mmol/L (136-145) Potassium Level 3.4 mmol/L (3.5-5.1) Chloride Level 101 mmol/L (98-107) Carbon Dioxide Level 25 mmol/L (21-32) Anion Gap 12 (6-14) Blood Urea Nitrogen 9 mg/dL (8-26) Creatinine 0.8 mg/dL (0.7-1.3) Estimated GFR (Cockcroft-Gault) 99.6 BUN/Creatinine Ratio 11 (6-20) Glucose Level 103 mg/dL (70-99) Calcium Level 7.4 mg/dL (8.5-10.1) Total Bilirubin 0.4 mg/dL (0.2-1.0) Aspartate Amino Transf (AST/SGOT) 25 U/L (15-37) Alanine Aminotransferase (ALT/SGPT) 22 U/L (16-63) Alkaline Phosphatase 79 U/L (46-116) Total Protein 8.5 g/dL (6.4-8.2) Albumin 2.8 g/dL (3.4-5.0) Albumin/Globulin Ratio 0.5 (1.0-1.7) Assessment and Plan Assessmemt and Plan Problems Medical Problems: (1) Fever and chills Status: Acute (2) Multiple myeloma Status: Acute Comment Review of Relevant I have reviewed the following items cristina (where applicable) has been applied. Labs Laboratory Tests Test 07/10/18 06:20 07/11/18 00:35 07/11/18 10:55 07/11/18 12:30 Creatinine 0.9 mg/dL (0.7-1.3) 0.8 mg/dL (0.7-1.3) Estimated GFR (Cockcroft-Gault) 87.0 99.6 Vancomycin Level Trough 13.5 mcg/mL (10.0-20.0) Vancomycin Last Dose Date [id number] Vancomycin Last Dose Time 1300 Urine Collection Type Unknown Urine Color Yellow Urine Clarity Clear Urine pH 6.0 Urine Specific [place] 1.010 Urine Protein Negative mg/dL (NEG-TRACE) Urine Glucose (UA) Negative mg/dL (NEG) Urine Ketones (Stick) Negative mg/dL (NEG) Urine Blood Negative (NEG) Urine Nitrite Negative (NEG) Urine Bilirubin Negative (NEG) Urine Urobilinogen Dipstick 0.2 mg/dL (0.2 mg/dL) Urine Leukocyte Esterase Negative (NEG) Urine RBC 0 /HPF (0-2) Urine WBC 0 /HPF (0-4) Urine Bacteria 0 /HPF (0-FEW) Urine Mucus Slight /LPF White Blood Count 4.2 x10^3/uL (4.0-11.0) Red Blood Count 2.51 x10^6/uL (4.30-5.70) Hemoglobin 8.6 g/dL (13.0-17.5) Hematocrit 24.3 % (39.0-53.0) Mean Corpuscular Volume 97 fL (79-100) Mean Corpuscular Hemoglobin 34 pg (25-35) Mean Corpuscular Hemoglobin Concent 35 g/dL (31-37) Red Cell Distribution Width 21.9 % (11.5-14.5) Platelet Count 137 x10^3/uL (140-400) Neutrophils (%) (Auto) 65 % (31-73) Lymphocytes (%) (Auto) 24 % (24-48) Monocytes (%) (Auto) 8 % (0-9) Eosinophils (%) (Auto) 3 % (0-3) Basophils (%) (Auto) 0 % (0-3) Neutrophils # (Auto) 2.8 x10^3uL (1.8-7.7) Lymphocytes # (Auto) 1.0 x10^3/uL (1.0-4.8) Monocytes # (Auto) 0.3 x10^3/uL (0.0-1.1) Eosinophils # (Auto) 0.1 x10^3/uL (0.0-0.7) Basophils # (Auto) 0.0 x10^3/uL (0.0-0.2) Sodium Level 138 mmol/L (136-145) Potassium Level 3.4 mmol/L (3.5-5.1) Chloride Level 101 mmol/L (98-107) Carbon Dioxide Level 25 mmol/L (21-32) Anion Gap 12 (6-14) Blood Urea Nitrogen 9 mg/dL (8-26) BUN/Creatinine Ratio 11 (6-20) Glucose Level 103 mg/dL (70-99) Calcium Level 7.4 mg/dL (8.5-10.1) Total Bilirubin 0.4 mg/dL (0.2-1.0) Aspartate Amino Transf (AST/SGOT) 25 U/L (15-37) Alanine Aminotransferase (ALT/SGPT) 22 U/L (16-63) Alkaline Phosphatase 79 U/L (46-116) Total Protein 8.5 g/dL (6.4-8.2) Albumin 2.8 g/dL (3.4-5.0) Albumin/Globulin Ratio 0.5 (1.0-1.7) Laboratory Tests Test 07/11/18 00:35 07/11/18 10:55 07/11/18 12:30 Vancomycin Level Trough 13.5 mcg/mL (10.0-20.0) Vancomycin Last Dose Date [id number] Vancomycin Last Dose Time 1300 Urine Collection Type Unknown Urine Color Yellow Urine Clarity Clear Urine pH 6.0 Urine Specific [place] 1.010 Urine Protein Negative mg/dL (NEG-TRACE) Urine Glucose (UA) Negative mg/dL (NEG) Urine Ketones (Stick) Negative mg/dL (NEG) Urine Blood Negative (NEG) Urine Nitrite Negative (NEG) Urine Bilirubin Negative (NEG) Urine Urobilinogen Dipstick 0.2 mg/dL (0.2 mg/dL) Urine Leukocyte Esterase Negative (NEG) Urine RBC 0 /HPF (0-2) Urine WBC 0 /HPF (0-4) Urine Bacteria 0 /HPF (0-FEW) Urine Mucus Slight /LPF White Blood Count 4.2 x10^3/uL (4.0-11.0) Red Blood Count 2.51 x10^6/uL (4.30-5.70) Hemoglobin 8.6 g/dL (13.0-17.5) Hematocrit 24.3 % (39.0-53.0) Mean Corpuscular Volume 97 fL (79-100) Mean Corpuscular Hemoglobin 34 pg (25-35) Mean Corpuscular Hemoglobin Concent 35 g/dL (31-37) Red Cell Distribution Width 21.9 % (11.5-14.5) Platelet Count 137 x10^3/uL (140-400) Neutrophils (%) (Auto) 65 % (31-73) Lymphocytes (%) (Auto) 24 % (24-48) Monocytes (%) (Auto) 8 % (0-9) Eosinophils (%) (Auto) 3 % (0-3) Basophils (%) (Auto) 0 % (0-3) Neutrophils # (Auto) 2.8 x10^3uL (1.8-7.7) Lymphocytes # (Auto) 1.0 x10^3/uL (1.0-4.8) Monocytes # (Auto) 0.3 x10^3/uL (0.0-1.1) Eosinophils # (Auto) 0.1 x10^3/uL (0.0-0.7) Basophils # (Auto) 0.0 x10^3/uL (0.0-0.2) Sodium Level 138 mmol/L (136-145) Potassium Level 3.4 mmol/L (3.5-5.1) Chloride Level 101 mmol/L (98-107) Carbon Dioxide Level 25 mmol/L (21-32) Anion Gap 12 (6-14) Blood Urea Nitrogen 9 mg/dL (8-26) Creatinine 0.8 mg/dL (0.7-1.3) Estimated GFR (Cockcroft-Gault) 99.6 BUN/Creatinine Ratio 11 (6-20) Glucose Level 103 mg/dL (70-99) Calcium Level 7.4 mg/dL (8.5-10.1) Total Bilirubin 0.4 mg/dL (0.2-1.0) Aspartate Amino Transf (AST/SGOT) 25 U/L (15-37) Alanine Aminotransferase (ALT/SGPT) 22 U/L (16-63) Alkaline Phosphatase 79 U/L (46-116) Total Protein 8.5 g/dL (6.4-8.2) Albumin 2.8 g/dL (3.4-5.0) Albumin/Globulin Ratio 0.5 (1.0-1.7) Microbiology 07/09/18 Blood Culture - Preliminary, Resulted NO GROWTH AFTER 2 DAYS 07/09/18 Throat Culture - Final, Complete 07/09/18 - Final, Complete Medications Current Medications Acetaminophen (Tylenol) 1,000 mg 1X ONCE PO Last administered on 07/08/18at 20: 00; Start 07/08/18 at 20:00; Stop 07/08/18 at 20:01; Status DC Sodium Chloride 1,000 ml @ 1,000 mls/hr Q1H IV Last administered on 07/08/18at 19:57; Start 07/08/18 at 19:57; Stop 07/08/18 at 20:56; Status DC Ketorolac Tromethamine (Toradol 30mg Vial) 30 mg 1X ONCE IV Last administered on 07/08/18at 22:00; Start 07/08/18 at 22:00; Stop 07/08/18 at 22:01; Status DC Ondansetron HCl (Zofran) 4 mg 1X ONCE IV Last administered on 07/08/18at 22:00 ; Start 07/08/18 at 22:00; Stop 07/08/18 at 22:01; Status DC Ketorolac Tromethamine (Toradol 30mg Vial) 30 mg STK-MED ONCE .ROUTE ; Start at 21:35; Stop 07/08/18 at 21:36; Status DC Ondansetron HCl (Zofran) 4 mg STK-MED ONCE .ROUTE ; Start 07/08/18 at 21:36; Stop 07/08/18 at 21:37; Status DC Levofloxacin/ Dextrose 150 ml @ 100 mls/hr 1X ONCE IV Last administered on at 22:30; Start 07/08/18 at 22:30; Stop 07/08/18 at 23:59; Status DC Sodium Chloride 1,000 ml @ 75 mls/hr 1X ONCE IV Last administered on at 23:00; Start 07/08/18 at 23:00; Stop 07/09/18 at 12:19; Status DC Influenza Virus Vaccine (Afluria Trivalent [id number] Syringe) 0.5 ml ONCE ONCE VAX IM ; Start 07/09/18 at 09:00; Stop 07/09/18 at 09:01; Status DC Morphine Sulfate (Morphine Sulfate) 2 mg PRN Q3HRS PRN IV SEVERE PAIN Last administered on 07/11/18at 21:14; Start 07/09/18 at 01:30 Acetaminophen (Tylenol) 500 mg PRN Q6HRS PRN PO MILD PAIN / TEMP Last administered on 07/10/18at 19:37; Start 07/09/18 at 09:15 Levofloxacin/ Dextrose 100 ml @ 100 mls/hr Q24H IV Last administered on at 21:11; Start 07/09/18 at 22:00 Cefepime HCl 1 gm/ Dextrose 50 ml @ 100 mls/hr Q8HRS IV ; Start 07/09/18 at 14: 00; Status UNV Vancomycin HCl (Vanco Per Pharmacy) 1 each PRN DAILY PRN MC SEE COMMENTS Last administered on 07/11/18at 08:23; Start 07/09/18 at 11:30 Bortezomib (Velcade) 3 mg 1X ONCE SQ Last administered on 07/09/18at 12:22; Start 07/09/18 at 12:00; Stop 07/09/18 at 12:01; Status DC Cefepime HCl (Maxipime) 1 gm Q8HRS IVP Last administered on 07/11/18at 21:11; Start 07/09/18 at 12:00 Vancomycin HCl 2 gm/Sodium Chloride 500 ml @ 250 mls/hr 1X ONCE IV Last administered on 07/09/18at 13:22; Start 07/09/18 at 12:00; Stop 07/09/18 at 13:59 ; Status DC Allopurinol (Zyloprim) 300 mg DAILY PO Last administered on 07/11/18 13:34; Start 07/10/18 at 09:00 Aspirin (Debbie Aspirin) 325 mg DAILY PO Last administered on 07/11/18 13:34; Start 07/10/18 at 09:00 Acetaminophen/ Hydrocodone Bitart (Lortab 5/325) 1 tab PRN Q6HRS PRN PO MODERATE-SEVERE PAIN Last administered on 07/11/18 15:06; Start 07/09/18 at 15: 45 Acyclovir (Zovirax) 800 mg BID PO Last administered on 07/11/18 21:11; Start 07/09/18 at 21:00 Citalopram Hydrobromide (CeleXA) 20 mg DAILY PO Last administered on 07/11/18 13:34; Start 07/10/18 at 09:00 Fluticasone Propionate (Flonase) 2 spray DAILY NS ; Start 07/10/18 at 09:00; Status Cancel Gabapentin (Neurontin) 300 mg TID PO Last administered on 07/11/18at 21:11; Start 07/09/18 at 21:00 Pantoprazole Sodium (Protonix) 40 mg DAILYAC PO Last administered on 07/11/18 05:45; Start 07/09/18 at 16:30 Fluticasone Propionate (Flonase) 2 spray DAILY NS Last administered on 13:33; Start 07/10/18 at 09:00 Vancomycin HCl 1.5 gm/Sodium Chloride 500 ml @ 250 mls/hr Q12H IV Last administered on 07/11/18 13:36; Start 07/10/18 at 01:00 Vancomycin HCl (Vancomycin Trough Level) 1 each 1X ONCE MC Last administered on 07/11/18at 00:30; Start 07/11/18 at 00:30; Stop 07/11/18 at 00:31; Status DC Active Scripts Active Reported Revlimid (Lenalidomide) 25 Mg Capsule 25 Mg PO Gabapentin 300 Mg Capsule 300 Mg PO BID Sulfamethoxazole-Tmp Ds Tablet (Sulfamethoxazole/Trimethoprim) 1 Each Tablet 1 Tab PO BID Dexamethasone 4 Mg Tablet 40 Mg PO WEEKLY Acyclovir 800 Mg Tablet 1 Tab PO BID Aspirin 325 Mg Tablet 1 Tab PO DAILY Hyzaar 100-25 Tablet (Losartan/Hydrochlorothiazide) 1 Each Tablet 1 Each PO DAILY Hydrocodone-Apap 5-325 (Hydrocodone Bit/Acetaminophen) 1 Each Tablet 1 Tab PO PRN Q6HRS PRN Escitalopram Oxalate 10 Mg Tablet 10 Mg PO DAILY Flonase Allergy Relief (Fluticasone Propionate) 9.9 Ml [place].susp 2 Sprays NS DAILY Meloxicam 7.5 Mg Tablet 7.5 Mg PO DAILY Prilosec Otc (Omeprazole Magnesium) 20 Mg Tablet.dr 40 Mg PO DAILY Allopurinol 300 Mg Tablet 300 Mg PO DAILY Vitals/I & O Vital Sign - Last 24 Hours 07/11/18 07/11/18 07/11/18 07/11/18 03:00 03:20 07:00 10:48 Temp 97.9 98.1 97.9 98.1 Pulse 99 81 Resp 18 18 20 B/P (MAP) 121/62 (81) 128/84 (99) Pulse Ox 97 99 98 O2 Delivery Room Air Room Air Room Air 07/11/18 07/11/18 07/11/18 07/11/18 11:00 15:00 15:06 16:06 Temp 97.5 98.8 97.5 98.8 Pulse 88 86 Resp 18 18 16 16 B/P (MAP) 122/78 (93) 116/60 (78) Pulse Ox 100 100 O2 Delivery Room Air Room Air Room Air Room Air 07/11/18 07/11/18 07/11/18 19:00 20:16 21:14 Temp 97.7 97.7 Pulse 89 Resp 18 B/P (MAP) 143/90 (107) Pulse Ox 100 O2 Delivery Room Air Room Air Room Air Intake and Output 07/10/18 07/10/18 07/11/18 15:00 23:00 07:00 Intake Total 300 ml 840 ml Output Total 360 ml Balance 300 ml 480 ml BISI WINTER MD Jul 11, 2018 23:51
[2018-07-12] MEDS ORDERED: POTASSIUM CHLORIDE 20 MEQ TABLET.ER. PO ONE
[2018-07-12] MEDS: TAMSULOSIN 0.4 MG CAP.ER.24H. PO SCH ×2 (00:52→21:46)
[2018-07-12] MEDS: VANCOMYCIN 1.5 GM in IV NORMAL SALINE 500ML BAG 500 ML IV SCH (00:54)
[2018-07-12 03:00] VITALS: BP 140/98
[2018-07-12] MEDS: HYDROcodone/APAP 5/325MG 1 TAB TABLET PO PRN (03:47)
[2018-07-12 04:57] LABS: CREATININE 0.8 mg/dL (0.7-1.3); GFR 99.6
[2018-07-12] MEDS: PANTOPRAZOLE 40 MG TABLET.DR. PO SCH (06:14)
[2018-07-12] MEDS: CEFEPIME HCL IV Push 1 GM VIAL. IVP SCH (06:14)
[2018-07-12 07:00] VITALS: BP 150/91
[2018-07-12] MEDS ORDERED: CONTRAST GIVEN. MC PRN (08:45)
[2018-07-12] MEDS ORDERED: IOHEXOL 240 MG/ML 50ML VIAL. PO ONE (08:45)
[2018-07-12] MEDS ORDERED: IOHEXOL 300 MG/ML 100ML VIAL. IV ONE (08:45)
--- NOTE | 2018-07-12 09:15 | PDOC ---
PROGRESS NOTES Subjective Subjective HPI - f/u of IgA kappa multiple myeloma diagnosed by a bone marrow biopsy on . ROS - has back paina and urinary retention Objective Objective Vital Signs Date Time Temp Pulse Resp B/P (MAP) Pulse Ox O2 Delivery O2 Flow Rate FiO2 07/12/18 07:00 97.4 84 14 150/91 (110) 99 Room Air 97.4 Intake and Output 07/12/18 07:00 Intake Total 960 ml Output Total 650 ml Balance 310 ml Intake Oral 960 ml Output Urine Total 650 ml # Voids 6 Physical Exam Heart: Normal S1, Normal S2 General: Alert, Oriented X3 Lungs: Clear to auscultation Neck: Supple Neuro: Normal speech Psych/Mental Status: Mental status NL Assessment Assessment Problems Medical Problems: (1) Fever and chills Status: Acute (2) Multiple myeloma Status: Acute IMPRESSION AND PLAN: 1. IgA kappa multiple myeloma diagnosed by a bone marrow biopsy on 06/25/2018. He received Decadron 40 mg daily for 4 days from 06/25/2018. After confirmation of diagnosis, he was started on chemotherapy with Velcade, Decadron and Revlimid from 07/06/2018. Revlimid was not available until 07/08/2018, and he took 1 dose on 07/08/2018. He was hospitalized subsequently and hence, I have advised him to hold Revlimid until his fever and infection is resolved. s/p with cycle #1, day #4 of Velcade on 07/09/2018. Plan [id number] velcade (and decadron 40 mg) on 07/13/18. I discussed with Dr Cerna 2. Fever, which could be infection versus drug reaction. There is suggestion of atypical infection per chest x-ray. Hence, I consulted Infectious Diseases. Further management regarding antibiotics per Infectious Diseases. Afebrile. 3. Anemia. Hemoglobin worse at 8.6. Continue to monitor. Transfuse if hemoglobin drops to below 7. 4. Low Back pain and urinary retention, I will order MRI lumber spine. Consult urology. Comment Review of Relevant I have reviewed the following items cristina (where applicable) has been applied. Labs Laboratory Tests Test 07/11/18 00:35 07/11/18 10:55 07/11/18 12:30 07/12/18 03:40 Vancomycin Level Trough 13.5 mcg/mL (10.0-20.0) Vancomycin Last Dose Date [id number] Vancomycin Last Dose Time 1300 Urine Collection Type Unknown Urine Color Yellow Urine Clarity Clear Urine pH 6.0 Urine Specific [place] 1.010 Urine Protein Negative mg/dL (NEG-TRACE) Urine Glucose (UA) Negative mg/dL (NEG) Urine Ketones (Stick) Negative mg/dL (NEG) Urine Blood Negative (NEG) Urine Nitrite Negative (NEG) Urine Bilirubin Negative (NEG) Urine Urobilinogen Dipstick 0.2 mg/dL (0.2 mg/dL) Urine Leukocyte Esterase Negative (NEG) Urine RBC 0 /HPF (0-2) Urine WBC 0 /HPF (0-4) Urine Bacteria 0 /HPF (0-FEW) Urine Mucus Slight /LPF White Blood Count 4.2 x10^3/uL (4.0-11.0) Red Blood Count 2.51 x10^6/uL (4.30-5.70) Hemoglobin 8.6 g/dL (13.0-17.5) Hematocrit 24.3 % (39.0-53.0) Mean Corpuscular Volume 97 fL (79-100) Mean Corpuscular Hemoglobin 34 pg (25-35) Mean Corpuscular Hemoglobin Concent 35 g/dL (31-37) Red Cell Distribution Width 21.9 % (11.5-14.5) Platelet Count 137 x10^3/uL (140-400) Neutrophils (%) (Auto) 65 % (31-73) Lymphocytes (%) (Auto) 24 % (24-48) Monocytes (%) (Auto) 8 % (0-9) Eosinophils (%) (Auto) 3 % (0-3) Basophils (%) (Auto) 0 % (0-3) Neutrophils # (Auto) 2.8 x10^3uL (1.8-7.7) Lymphocytes # (Auto) 1.0 x10^3/uL (1.0-4.8) Monocytes # (Auto) 0.3 x10^3/uL (0.0-1.1) Eosinophils # (Auto) 0.1 x10^3/uL (0.0-0.7) Basophils # (Auto) 0.0 x10^3/uL (0.0-0.2) Sodium Level 138 mmol/L (136-145) Potassium Level 3.4 mmol/L (3.5-5.1) Chloride Level 101 mmol/L (98-107) Carbon Dioxide Level 25 mmol/L (21-32) Anion Gap 12 (6-14) Blood Urea Nitrogen 9 mg/dL (8-26) Creatinine 0.8 mg/dL (0.7-1.3) 0.8 mg/dL (0.7-1.3) Estimated GFR (Cockcroft-Gault) 99.6 99.6 BUN/Creatinine Ratio 11 (6-20) Glucose Level 103 mg/dL (70-99) Calcium Level 7.4 mg/dL (8.5-10.1) Total Bilirubin 0.4 mg/dL (0.2-1.0) Aspartate Amino Transf (AST/SGOT) 25 U/L (15-37) Alanine Aminotransferase (ALT/SGPT) 22 U/L (16-63) Alkaline Phosphatase 79 U/L (46-116) Total Protein 8.5 g/dL (6.4-8.2) Albumin 2.8 g/dL (3.4-5.0) Albumin/Globulin Ratio 0.5 (1.0-1.7) Laboratory Tests Test 07/11/18 10:55 07/11/18 12:30 07/12/18 03:40 Urine Collection Type Unknown Urine Color Yellow Urine Clarity Clear Urine pH 6.0 Urine Specific [place] 1.010 Urine Protein Negative mg/dL (NEG-TRACE) Urine Glucose (UA) Negative mg/dL (NEG) Urine Ketones (Stick) Negative mg/dL (NEG) Urine Blood Negative (NEG) Urine Nitrite Negative (NEG) Urine Bilirubin Negative (NEG) Urine Urobilinogen Dipstick 0.2 mg/dL (0.2 mg/dL) Urine Leukocyte Esterase Negative (NEG) Urine RBC 0 /HPF (0-2) Urine WBC 0 /HPF (0-4) Urine Bacteria 0 /HPF (0-FEW) Urine Mucus Slight /LPF White Blood Count 4.2 x10^3/uL (4.0-11.0) Red Blood Count 2.51 x10^6/uL (4.30-5.70) Hemoglobin 8.6 g/dL (13.0-17.5) Hematocrit 24.3 % (39.0-53.0) Mean Corpuscular Volume 97 fL (79-100) Mean Corpuscular Hemoglobin 34 pg (25-35) Mean Corpuscular Hemoglobin Concent 35 g/dL (31-37) Red Cell Distribution Width 21.9 % (11.5-14.5) Platelet Count 137 x10^3/uL (140-400) Neutrophils (%) (Auto) 65 % (31-73) Lymphocytes (%) (Auto) 24 % (24-48) Monocytes (%) (Auto) 8 % (0-9) Eosinophils (%) (Auto) 3 % (0-3) Basophils (%) (Auto) 0 % (0-3) Neutrophils # (Auto) 2.8 x10^3uL (1.8-7.7) Lymphocytes # (Auto) 1.0 x10^3/uL (1.0-4.8) Monocytes # (Auto) 0.3 x10^3/uL (0.0-1.1) Eosinophils # (Auto) 0.1 x10^3/uL (0.0-0.7) Basophils # (Auto) 0.0 x10^3/uL (0.0-0.2) Sodium Level 138 mmol/L (136-145) Potassium Level 3.4 mmol/L (3.5-5.1) Chloride Level 101 mmol/L (98-107) Carbon Dioxide Level 25 mmol/L (21-32) Anion Gap 12 (6-14) Blood Urea Nitrogen 9 mg/dL (8-26) Creatinine 0.8 mg/dL (0.7-1.3) 0.8 mg/dL (0.7-1.3) Estimated GFR (Cockcroft-Gault) 99.6 99.6 BUN/Creatinine Ratio 11 (6-20) Glucose Level 103 mg/dL (70-99) Calcium Level 7.4 mg/dL (8.5-10.1) Total Bilirubin 0.4 mg/dL (0.2-1.0) Aspartate Amino Transf (AST/SGOT) 25 U/L (15-37) Alanine Aminotransferase (ALT/SGPT) 22 U/L (16-63) Alkaline Phosphatase 79 U/L (46-116) Total Protein 8.5 g/dL (6.4-8.2) Albumin 2.8 g/dL (3.4-5.0) Albumin/Globulin Ratio 0.5 (1.0-1.7) Microbiology 07/09/18 Blood Culture - Preliminary, Resulted NO GROWTH AFTER 2 DAYS 07/09/18 Throat Culture - Final, Complete 07/09/18 - Final, Complete Medications Current Medications Acetaminophen (Tylenol) 1,000 mg 1X ONCE PO Last administered on 07/08/18at 20: 00; Start 07/08/18 at 20:00; Stop 07/08/18 at 20:01; Status DC Sodium Chloride 1,000 ml @ 1,000 mls/hr Q1H IV Last administered on 07/08/18at 19:57; Start 07/08/18 at 19:57; Stop 07/08/18 at 20:56; Status DC Ketorolac Tromethamine (Toradol 30mg Vial) 30 mg 1X ONCE IV Last administered on 07/08/18at 22:00; Start 07/08/18 at 22:00; Stop 07/08/18 at 22:01; Status DC Ondansetron HCl (Zofran) 4 mg 1X ONCE IV Last administered on 07/08/18at 22:00 ; Start 07/08/18 at 22:00; Stop 07/08/18 at 22:01; Status DC Ketorolac Tromethamine (Toradol 30mg Vial) 30 mg STK-MED ONCE .ROUTE ; Start at 21:35; Stop 07/08/18 at 21:36; Status DC Ondansetron HCl (Zofran) 4 mg STK-MED ONCE .ROUTE ; Start 07/08/18 at 21:36; Stop 07/08/18 at 21:37; Status DC Levofloxacin/ Dextrose 150 ml @ 100 mls/hr 1X ONCE IV Last administered on at 22:30; Start 07/08/18 at 22:30; Stop 07/08/18 at 23:59; Status DC Sodium Chloride 1,000 ml @ 75 mls/hr 1X ONCE IV Last administered on at 23:00; Start 07/08/18 at 23:00; Stop 07/09/18 at 12:19; Status DC Influenza Virus Vaccine (Afluria Trivalent [id number] Syringe) 0.5 ml ONCE ONCE VAX IM ; Start 07/09/18 at 09:00; Stop 07/09/18 at 09:01; Status DC Morphine Sulfate (Morphine Sulfate) 2 mg PRN Q3HRS PRN IV SEVERE PAIN Last administered on 07/11/18at 21:14; Start 07/09/18 at 01:30 Acetaminophen (Tylenol) 500 mg PRN Q6HRS PRN PO MILD PAIN / TEMP Last administered on 07/10/18at 19:37; Start 07/09/18 at 09:15 Levofloxacin/ Dextrose 100 ml @ 100 mls/hr Q24H IV Last administered on at 21:11; Start 07/09/18 at 22:00 Cefepime HCl 1 gm/ Dextrose 50 ml @ 100 mls/hr Q8HRS IV ; Start 07/09/18 at 14: 00; Status UNV Vancomycin HCl (Vanco Per Pharmacy) 1 each PRN DAILY PRN MC SEE COMMENTS Last administered on 07/11/18at 08:23; Start 07/09/18 at 11:30 Bortezomib (Velcade) 3 mg 1X ONCE SQ Last administered on 07/09/18at 12:22; Start 07/09/18 at 12:00; Stop 07/09/18 at 12:01; Status DC Cefepime HCl (Maxipime) 1 gm Q8HRS IVP Last administered on 07/12/18at 06:14; Start 07/09/18 at 12:00 Vancomycin HCl 2 gm/Sodium Chloride 500 ml @ 250 mls/hr 1X ONCE IV Last administered on 07/09/18at 13:22; Start 07/09/18 at 12:00; Stop 07/09/18 at 13:59 ; Status DC Allopurinol (Zyloprim) 300 mg DAILY PO Last administered on 07/11/18at 13:34; Start 07/10/18 at 09:00 Aspirin (Debbie Aspirin) 325 mg DAILY PO Last administered on 07/11/18at 13:34; Start 07/10/18 at 09:00 Acetaminophen/ Hydrocodone Bitart (Lortab 5/325) 1 tab PRN Q6HRS PRN PO MODERATE-SEVERE PAIN Last administered on 07/12/18at 03:47; Start 07/09/18 at 15: 45 Acyclovir (Zovirax) 800 mg BID PO Last administered on 07/11/18at 21:11; Start 07/09/18 at 21:00 Citalopram Hydrobromide (CeleXA) 20 mg DAILY PO Last administered on 07/11/18at 13:34; Start 07/10/18 at 09:00 Fluticasone Propionate (Flonase) 2 spray DAILY NS ; Start 07/10/18 at 09:00; Status Cancel Gabapentin (Neurontin) 300 mg TID PO Last administered on 07/11/18at 21:11; Start 07/09/18 at 21:00 Pantoprazole Sodium (Protonix) 40 mg DAILYAC PO Last administered on 07/12/18at 06:14; Start 07/09/18 at 16:30 Fluticasone Propionate (Flonase) 2 spray DAILY NS Last administered on at 13:33; Start 07/10/18 at 09:00 Vancomycin HCl 1.5 gm/Sodium Chloride 500 ml @ 250 mls/hr Q12H IV Last administered on 07/12/18at 00:54; Start 07/10/18 at 01:00 Vancomycin HCl (Vancomycin Trough Level) 1 each 1X ONCE MC Last administered on 07/11/18at 00:30; Start 07/11/18 at 00:30; Stop 07/11/18 at 00:31; Status DC Potassium Chloride (Klor-Con) 40 meq 1X ONCE PO Last administered on at 00:52; Start 07/12/18 at 00:00; Stop 07/12/18 at 00:01; Status DC Tamsulosin HCl (Flomax) 0.4 mg QHS PO Last administered on 07/12/18at 00:52; Start 07/12/18 at 00:30 Iohexol (Omnipaque 240 Mg/ml) 50 ml 1X ONCE PO ; Start 07/12/18 at 08:45; Stop 07/12/18 at 08:46; Status DC Iohexol (Omnipaque 300 Mg/ml) 75 ml 1X ONCE IV ; Start 07/12/18 at 08:45; Stop 07/12/18 at 08:46; Status DC Info (CONTRAST GIVEN -- Rx MONITORING) 1 each PRN DAILY PRN MC SEE COMMENTS; Start 07/12/18 at 08:45; Stop 07/14/18 at 08:44 Active Scripts Active Reported Revlimid (Lenalidomide) 25 Mg Capsule 25 Mg PO Gabapentin 300 Mg Capsule 300 Mg PO BID Sulfamethoxazole-Tmp Ds Tablet (Sulfamethoxazole/Trimethoprim) 1 Each Tablet 1 Tab PO BID Dexamethasone 4 Mg Tablet 40 Mg PO WEEKLY Acyclovir 800 Mg Tablet 1 Tab PO BID Aspirin 325 Mg Tablet 1 Tab PO DAILY Hyzaar 100-25 Tablet (Losartan/Hydrochlorothiazide) 1 Each Tablet 1 Each PO DAILY Hydrocodone-Apap 5-325 (Hydrocodone Bit/Acetaminophen) 1 Each Tablet 1 Tab PO PRN Q6HRS PRN Escitalopram Oxalate 10 Mg Tablet 10 Mg PO DAILY Flonase Allergy Relief (Fluticasone Propionate) 9.9 Ml [place].susp 2 Sprays NS DAILY Meloxicam 7.5 Mg Tablet 7.5 Mg PO DAILY Prilosec Otc (Omeprazole Magnesium) 20 Mg Tablet.dr 40 Mg PO DAILY Allopurinol 300 Mg Tablet 300 Mg PO DAILY Vitals/I & O Vital Sign - Last 24 Hours 07/11/18 07/11/18 07/11/18 07/11/18 10:48 11:00 15:00 15:06 Temp 97.5 98.8 97.5 98.8 Pulse 88 86 Resp 20 18 18 16 B/P (MAP) 122/78 (93) 116/60 (78) Pulse Ox 100 100 O2 Delivery Room Air Room Air Room Air Room Air 07/11/18 07/11/18 07/11/18 07/11/18 16:06 19:00 20:16 21:14 Temp 97.7 97.7 Pulse 89 Resp 16 18 B/P (MAP) 143/90 (107) Pulse Ox 100 O2 Delivery Room Air Room Air Room Air 07/11/18 07/11/18 07/12/18 07/12/18 23:00 23:00 03:00 03:47 Temp 98.0 97.4 98.0 97.4 Pulse 86 86 Resp 16 18 18 B/P (MAP) 134/79 (97) 140/98 (112) Pulse Ox 99 99 O2 Delivery Room Air Room Air Room Air Room Air 07/12/18 07/12/18 04:48 07:00 Temp 97.4 97.4 Pulse 84 Resp 14 B/P (MAP) 150/91 (110) Pulse Ox 99 O2 Delivery Room Air Room Air Intake and Output 9/30/18 9/30/18 10/1/18 15:00 23:00 07:00 Intake Total 380 ml 580 ml Output Total 650 ml Balance 380 ml -70 ml PHILLIP FUNEZ MD Jul 12, 2018 09:15
--- NOTE | 2018-07-12 09:54 | PDOC2 ---
FERMIN CALABRESE [employer] 07/12/18 0954: UROLOGY CONSULT Date of Consult Date of Consult DATE: 07/12/18 TIME: 09:49 Reason for Consult Reason for Consult: Urinary Retention Identification/Chief Complaint Chief Complaint Urinary Retention Source Source: Caregiver, Chart review, Patient History of Present Illness Reason for Visit: Patient is a 58 year old makle with history of multiple myeloma. He had chemotherapy and then developed fever and chills after receiving this; he is hospitalized for observation secondary to this chemo reaction. He is actually feeling better today, but Urology was consulted for urinary retention which occurred yesterday. He was straight cathed by the nurses and they had a return of 650 out. This happened just once, and this is the first time he has had any trouble with retention. He denies history of prostate problems or cancer. He also denies history of kidney problems or stones. He is not having any flank or abd pain today. He is just feeling very tired. He feels like he could void if needed but his bladder is not feeling "overly full or distended." Past Medical History Cardiovascular: HTN, Hyperlipidemia Pulmonary: No pertinent hx GI: Diverticulosis, GERD, Gastritis Heme/Onc: No pertinent hx Hepatobiliary: No pertinent hx Psych: Anxiety Rheumatologic: No pertinent hx Infectious disease: No pertinent hx Renal/: No pertinent hx Endocrine: No pertinent hx Past Surgical History Past Surgical History: Tonsillectomy Family History Family History: No Significant Social History ALCOHOL: occassional Drugs: None Current Medications Current Medications Current Medications Dexamethasone (Decadron) 40 mg 1X ONCE PO ; Start 07/13/18 at 09:15; Stop 07/13 at 09:16 Info (CONTRAST GIVEN -- Rx MONITORING) 1 each PRN DAILY PRN MC SEE COMMENTS; Start 07/12/18 at 08:45; Stop 07/14/18 at 08:44 Iohexol (Omnipaque 240 Mg/ml) 50 ml 1X ONCE PO ; Start 07/12/18 at 08:45; Stop 07/12/18 at 08:46; Status DC Iohexol (Omnipaque 300 Mg/ml) 75 ml 1X ONCE IV ; Start 07/12/18 at 08:45; Stop 07/12/18 at 08:46; Status DC Potassium Chloride (Klor-Con) 40 meq 1X ONCE PO Last administered on at 00:52; Start 07/12/18 at 00:00; Stop 07/12/18 at 00:01; Status DC Tamsulosin HCl (Flomax) 0.4 mg QHS PO Last administered on 07/12/18at 00:52; Start 07/12/18 at 00:30 Allergies Allergies: Coded Allergies: amoxicillin (Verified Allergy, Intermediate, 07/06/18) Penicillins (Verified Adverse Reaction, Intermediate, Nausea and Vomiting , 07/06/18) ROS Review Of Systems: CONSTITUTIONAL: fever/chills improving EYES: No recent changes SKIN: No rash or itching CARDIOVASCULAR: No chest pain, syncope, palpitations, or edema RESPIRATORY: No SOB or cough GASTROINTESTINAL: No nausea, vomiting or abdominal pain NEUROLOGICAL: No headaches or weakness ENDOCRINE: No cold or heat intolerance GENITOURINARY: + retention, no dysuria MUSCULOSKELETAL: No back pain or joint pain LYMPHATICS: No enlarged lymph nodes PSYCHIATRIC: No anxiety or depression Physical Exam Physical Exam: General: Pleasant, no acute distress, well groomed Eyes: conjunctiva anicteric, eyes full range of motion ENT: moist oral mucosa, normal dentition Neck: Trachea midline, no masses Respiratory: unlabored breathing, not using accessory muscles Back: No CVA pain Abdomen: nontender, nondistended, no hepatosplenomegaly, no masses Pelvic: circumcised phallus, normal meatus, non tender scrotum and testicles. Vitals VITALS Vital Signs Date Time Temp Pulse Resp B/P (MAP) Pulse Ox O2 Delivery O2 Flow Rate FiO2 07/12/18 07:00 97.4 84 14 150/91 (110) 99 Room Air 97.4 Labs Labs Laboratory Tests Test 07/11/18 00:35 07/11/18 10:55 07/11/18 12:30 07/12/18 03:40 Vancomycin Level Trough 13.5 mcg/mL (10.0-20.0) Vancomycin Last Dose Date [id number] Vancomycin Last Dose Time 1300 Urine Collection Type Unknown Urine Color Yellow Urine Clarity Clear Urine pH 6.0 Urine Specific [place] 1.010 Urine Protein Negative mg/dL (NEG-TRACE) Urine Glucose (UA) Negative mg/dL (NEG) Urine Ketones (Stick) Negative mg/dL (NEG) Urine Blood Negative (NEG) Urine Nitrite Negative (NEG) Urine Bilirubin Negative (NEG) Urine Urobilinogen Dipstick 0.2 mg/dL (0.2 mg/dL) Urine Leukocyte Esterase Negative (NEG) Urine RBC 0 /HPF (0-2) Urine WBC 0 /HPF (0-4) Urine Bacteria 0 /HPF (0-FEW) Urine Mucus Slight /LPF White Blood Count 4.2 x10^3/uL (4.0-11.0) Red Blood Count 2.51 x10^6/uL (4.30-5.70) Hemoglobin 8.6 g/dL (13.0-17.5) Hematocrit 24.3 % (39.0-53.0) Mean Corpuscular Volume 97 fL (79-100) Mean Corpuscular Hemoglobin 34 pg (25-35) Mean Corpuscular Hemoglobin Concent 35 g/dL (31-37) Red Cell Distribution Width 21.9 % (11.5-14.5) Platelet Count 137 x10^3/uL (140-400) Neutrophils (%) (Auto) 65 % (31-73) Lymphocytes (%) (Auto) 24 % (24-48) Monocytes (%) (Auto) 8 % (0-9) Eosinophils (%) (Auto) 3 % (0-3) Basophils (%) (Auto) 0 % (0-3) Neutrophils # (Auto) 2.8 x10^3uL (1.8-7.7) Lymphocytes # (Auto) 1.0 x10^3/uL (1.0-4.8) Monocytes # (Auto) 0.3 x10^3/uL (0.0-1.1) Eosinophils # (Auto) 0.1 x10^3/uL (0.0-0.7) Basophils # (Auto) 0.0 x10^3/uL (0.0-0.2) Sodium Level 138 mmol/L (136-145) Potassium Level 3.4 mmol/L (3.5-5.1) Chloride Level 101 mmol/L (98-107) Carbon Dioxide Level 25 mmol/L (21-32) Anion Gap 12 (6-14) Blood Urea Nitrogen 9 mg/dL (8-26) Creatinine 0.8 mg/dL (0.7-1.3) 0.8 mg/dL (0.7-1.3) Estimated GFR (Cockcroft-Gault) 99.6 99.6 BUN/Creatinine Ratio 11 (6-20) Glucose Level 103 mg/dL (70-99) Calcium Level 7.4 mg/dL (8.5-10.1) Total Bilirubin 0.4 mg/dL (0.2-1.0) Aspartate Amino Transf (AST/SGOT) 25 U/L (15-37) Alanine Aminotransferase (ALT/SGPT) 22 U/L (16-63) Alkaline Phosphatase 79 U/L (46-116) Total Protein 8.5 g/dL (6.4-8.2) Albumin 2.8 g/dL (3.4-5.0) Albumin/Globulin Ratio 0.5 (1.0-1.7) Laboratory Tests Test 07/11/18 10:55 07/11/18 12:30 07/12/18 03:40 Urine Collection Type Unknown Urine Color Yellow Urine Clarity Clear Urine pH 6.0 Urine Specific [place] 1.010 Urine Protein Negative mg/dL (NEG-TRACE) Urine Glucose (UA) Negative mg/dL (NEG) Urine Ketones (Stick) Negative mg/dL (NEG) Urine Blood Negative (NEG) Urine Nitrite Negative (NEG) Urine Bilirubin Negative (NEG) Urine Urobilinogen Dipstick 0.2 mg/dL (0.2 mg/dL) Urine Leukocyte Esterase Negative (NEG) Urine RBC 0 /HPF (0-2) Urine WBC 0 /HPF (0-4) Urine Bacteria 0 /HPF (0-FEW) Urine Mucus Slight /LPF White Blood Count 4.2 x10^3/uL (4.0-11.0) Red Blood Count 2.51 x10^6/uL (4.30-5.70) Hemoglobin 8.6 g/dL (13.0-17.5) Hematocrit 24.3 % (39.0-53.0) Mean Corpuscular Volume 97 fL (79-100) Mean Corpuscular Hemoglobin 34 pg (25-35) Mean Corpuscular Hemoglobin Concent 35 g/dL (31-37) Red Cell Distribution Width 21.9 % (11.5-14.5) Platelet Count 137 x10^3/uL (140-400) Neutrophils (%) (Auto) 65 % (31-73) Lymphocytes (%) (Auto) 24 % (24-48) Monocytes (%) (Auto) 8 % (0-9) Eosinophils (%) (Auto) 3 % (0-3) Basophils (%) (Auto) 0 % (0-3) Neutrophils # (Auto) 2.8 x10^3uL (1.8-7.7) Lymphocytes # (Auto) 1.0 x10^3/uL (1.0-4.8) Monocytes # (Auto) 0.3 x10^3/uL (0.0-1.1) Eosinophils # (Auto) 0.1 x10^3/uL (0.0-0.7) Basophils # (Auto) 0.0 x10^3/uL (0.0-0.2) Sodium Level 138 mmol/L (136-145) Potassium Level 3.4 mmol/L (3.5-5.1) Chloride Level 101 mmol/L (98-107) Carbon Dioxide Level 25 mmol/L (21-32) Anion Gap 12 (6-14) Blood Urea Nitrogen 9 mg/dL (8-26) Creatinine 0.8 mg/dL (0.7-1.3) 0.8 mg/dL (0.7-1.3) Estimated GFR (Cockcroft-Gault) 99.6 99.6 BUN/Creatinine Ratio 11 (6-20) Glucose Level 103 mg/dL (70-99) Calcium Level 7.4 mg/dL (8.5-10.1) Total Bilirubin 0.4 mg/dL (0.2-1.0) Aspartate Amino Transf (AST/SGOT) 25 U/L (15-37) Alanine Aminotransferase (ALT/SGPT) 22 U/L (16-63) Alkaline Phosphatase 79 U/L (46-116) Total Protein 8.5 g/dL (6.4-8.2) Albumin 2.8 g/dL (3.4-5.0) Albumin/Globulin Ratio 0.5 (1.0-1.7) Assessment/Plan Assessment/Plan Pt with episodal urinary retention of 650 last night, appears to have resolved for now. PVR today just 66-70 via bladder scan. Continue flomax. Discussed double voiding technique with patient; he states he will attempt this every time he voids during the day. Also states he will inform nursing staff if he starts to have trouble voiding again. Will recheck PVR in the am. JANIE FLYNN MD 07/13/18 1408: UROLOGY CONSULT Assessment/Plan Assessment/Plan Patient was discharged prior to my rounding. On chart review appears to have an isolated incident of UR. No mention of neurologic impairment on MRI or in others documentation. Agree with tamsulosin and urologic fu PRN. FERMIN CALABRESE APRN Jul 12, 2018 09:54 JANIE FLYNN MD Jul 13, 2018 14:08
[2018-07-12 10:54] VITALS: BP 151/86
[2018-07-12] MEDS: CITALOPRAM 20 MG TABLET. PO SCH (11:04)
[2018-07-12] MEDS: ACYCLOVIR 200 MG CAPSULE. PO SCH ×2 (11:04→21:46)
[2018-07-12] MEDS: ALLOPURINOL 300 MG TABLET. PO SCH (11:05)
[2018-07-12] MEDS: GABAPENTIN 300 MG CAPSULE. PO SCH ×3 (11:06→21:46)
[2018-07-12] MEDS: ASPIRIN 325 MG TABLET PO SCH (11:06)
[2018-07-12] MEDS: FLUTICASONE 50MCG/NASAL SPRAY 16GM BOTTLE. NS SCH (11:06)
[2018-07-12] MEDS ORDERED: GADOBUTROL 10 MMOL/10 ML VIAL IV ONE (12:00)
--- NOTE | 2018-07-12 12:00 | PDOC ---
Infectious Disease Note Subjective Subjective feeling really good ROS ROS no n/v/d/fever Vital Sign Vital Signs Vital Signs Date Time Temp Pulse Resp B/P (MAP) Pulse Ox O2 Delivery O2 Flow Rate FiO2 07/12/18 10:54 97.9 82 16 151/86 (107) 100 Room Air 97.9 Physical Exam PHYSICAL EXAM GENERAL: Standing at the bed side watching TV, NAD HEENT: Pupils equal and reactive. Oral cavity, pharynx is clear. NECK: Supple, no JVD. LUNGS: Clear HEART: S1, S2. ABDOMEN: Obese, soft, nontender, nondistended, positive bowel sounds. EXTREMITIES: No clubbing, cyanosis or gross edema. SKIN: Warm to touch without signs of rash. Tattoo NEUROLOGIC: Nonfocal and appropriate. PIV Labs Lab Laboratory Tests Test 07/11/18 12:30 07/12/18 03:40 White Blood Count 4.2 x10^3/uL (4.0-11.0) Red Blood Count 2.51 x10^6/uL (4.30-5.70) Hemoglobin 8.6 g/dL (13.0-17.5) Hematocrit 24.3 % (39.0-53.0) Mean Corpuscular Volume 97 fL (79-100) Mean Corpuscular Hemoglobin 34 pg (25-35) Mean Corpuscular Hemoglobin Concent 35 g/dL (31-37) Red Cell Distribution Width 21.9 % (11.5-14.5) Platelet Count 137 x10^3/uL (140-400) Neutrophils (%) (Auto) 65 % (31-73) Lymphocytes (%) (Auto) 24 % (24-48) Monocytes (%) (Auto) 8 % (0-9) Eosinophils (%) (Auto) 3 % (0-3) Basophils (%) (Auto) 0 % (0-3) Neutrophils # (Auto) 2.8 x10^3uL (1.8-7.7) Lymphocytes # (Auto) 1.0 x10^3/uL (1.0-4.8) Monocytes # (Auto) 0.3 x10^3/uL (0.0-1.1) Eosinophils # (Auto) 0.1 x10^3/uL (0.0-0.7) Basophils # (Auto) 0.0 x10^3/uL (0.0-0.2) Sodium Level 138 mmol/L (136-145) Potassium Level 3.4 mmol/L (3.5-5.1) Chloride Level 101 mmol/L (98-107) Carbon Dioxide Level 25 mmol/L (21-32) Anion Gap 12 (6-14) Blood Urea Nitrogen 9 mg/dL (8-26) Creatinine 0.8 mg/dL (0.7-1.3) 0.8 mg/dL (0.7-1.3) Estimated GFR (Cockcroft-Gault) 99.6 99.6 BUN/Creatinine Ratio 11 (6-20) Glucose Level 103 mg/dL (70-99) Calcium Level 7.4 mg/dL (8.5-10.1) Total Bilirubin 0.4 mg/dL (0.2-1.0) Aspartate Amino Transf (AST/SGOT) 25 U/L (15-37) Alanine Aminotransferase (ALT/SGPT) 22 U/L (16-63) Alkaline Phosphatase 79 U/L (46-116) Total Protein 8.5 g/dL (6.4-8.2) Albumin 2.8 g/dL (3.4-5.0) Albumin/Globulin Ratio 0.5 (1.0-1.7) Micro Microbiology 07/09/18 Blood Culture - Preliminary, Resulted NO GROWTH AFTER 3 DAYS 07/09/18 Throat Culture - Final, Complete 07/09/18 - Final, Complete Objective Assessment Fever, questionable infection versus drug reaction. improved Leukocytosis, improved, but also has post-dexamethasone. Multiple myeloma. PENICILLIN ALLERGIES, is more of an intolerance. Urinary frequency, UA neg Plan Plan of Care change antibiotics to po levaquin Mycoplasma neg Strep pneumo antigen & Legionella pending Resp viral panel - not available Blood cults NGTD Strep screen neg Post-void bladder scan D/w GENEVA LONGORIA MD Jul 12, 2018 12:00
--- NOTE | 2018-07-12 12:21 | RAD ---
MRI Lumbar Spine without and with contrast History: Worsening low back pain with urinary retention and bilateral leg weakness, history of multiple myeloma Technique: Multiplanar, multi sequential pre and postcontrast MR imaging was performed of the lumbar spine. Contrast: 10 cc Gadavist Comparison: None Findings: There appears to be transitional anatomy of the lumbar spine. Based on the assumption of 12 ribs and visualization of what is considered the twelfth ribs, most inferior fully formed although rudimentary intervertebral disc space is considered L5-S1. Conus terminates at L1. There is no nodular enhancement of the conus or cauda equina. That is no significant enhancement of the visualized distal cord. There is more advanced degenerative disc disease at what is considered L3-4 and L4-5, minimally at L1-L2 and mild disc desiccation L2-3. There is narrowing of the L5-S1 intervertebral disc space on a developmental basis. Vertebral body stature is overall preserved other than Schmorl's nodes at L3-4. There is negligible anterior spondylolisthesis at L3-4 and negligible posterior subluxation L4 relative L5. There is a small edematous enhancing marrow lesion inferiorly of T11 extending to the endplate, other more amorphous focus more superiorly. There are also some small foci of amorphous edema and enhancement of the T12 vertebral body, also small focus of the visualized right iliac bone. There is degenerative endplate change and edema of the L3-4 endplates although more likely be reactive/degenerative degenerative in etiology, also degree of degenerative endplate change at L4-5. There is distention of the visualized urinary bladder not fully evaluated. T10-11: There is buckling of the ligamentum flavum and facet degenerative change contributing to ynye-gf-cetloquu posterior narrowing of the right neural foramen and likely mild right lateral recess stenosis, this level not included on the axial images. T11-12: Neural foramina and spinal canal are adequate. There is minimal buckling of the ligamentum flavum. L1-L2: There is mild buckling of the ligamentum flavum and facet hypertrophic change. There is a minimal disc osteophyte complex and bulge. Spinal canal and neural foramina are adequate. L2-L3: There is [id number] facet degenerative change and buckling of the ligamentum flavum. Spinal canal and neural foramina are overall adequate. L3-L4: There is moderate to severe facet degenerative change and exnz-ec-bdadmjyp buckling of the ligamentum flavum. There is minimal disc osteophyte complex. Combination of findings results in overall [id number] narrowing of the far lateral recesses bilaterally as well as of the central canal. There is mild narrowing of the right neural foramen greater distally with disc osteophyte complex near the ventral undersurface exiting right L3 nerve root, left neural foramen overall adequate. L4-L5: There is negligible disc osteophyte complex. Spinal canal is adequate. Neural foramina are overall adequate, minimal disc osteophyte complex in the inferior neural foramina. L5-S1: Spinal canal and neural foramina are adequate. Impression: 1. There is transitional anatomy of the lumbar spine as described. There is rimq-gb-cdchsdyf spinal stenosis at what is considered L3-4. There is more advanced degenerative disc disease at what is considered L3-4 and L4-5, spondylosis at the same levels. There is no significant lumbar neural foramina compromise, minimal narrowing greater distally on the right at L3-4. There are small edematous enhancing marrow lesions, evidence of multiple myeloma as per history. 2. There is distention of the visualized urinary bladder. Electronically signed by: Jasson Suero MD (07/12/2018 12:17 PM) [id number]
--- NOTE | 2018-07-12 12:47 | RAD ---
CT of the abdomen and pelvis without contrast, 07/12/2018: HISTORY: Abdominal and back pain Noncontrast scans were obtained utilizing the renal stone protocol as requested. Comparison is made to a study from 11/08/2015. No intrarenal calculi are identified. The renal collecting systems and ureters are not dilated. No ureteral calculus is seen. There is mild streaky perinephric edema bilaterally. The urinary bladder is unremarkable. The prostate gland is at the upper limits of normal in size. It contains several calcifications. Scattered coronary artery calcifications are noted. A tiny unchanged parenchymal opacity in the lateral aspect of the right middle lobe is probably a scar. The gallbladder is surgically absent. The unopacified liver shows no abnormality. The pancreas is unremarkable. The spleen is of normal size. There is moderate calcific plaquing of the aorta and its branches without evidence of aneurysm. No abdominal or pelvic adenopathy is seen. There are scattered colonic diverticula most numerous in the sigmoid region. Some of these contain retained radiopaque material. No paracolonic inflammatory process is seen. The bowel loops are not dilated. A portion of the appendix is visualized and it is unremarkable. No free air or free fluid is evident in the abdomen or pelvis. Moderate scattered degenerative changes are present in the spine. Several small bony lucencies are identified in the lower thoracic and lumbar spine, new since 11/08/2015. This is compatible with the given history of multiple myeloma. There is a healing fracture of the posterior aspect of the left 11th rib which is also new. IMPRESSION: 1. No urinary tract calculus is identified. 2. Mild bilateral perinephric edema. 3. Colonic diverticulosis. 4. Coronary artery calcifications. 5. New scattered bony lucencies compatible with the given history of multiple myeloma. PQRS Compliance Statement: One or more of the following individualized dose reduction techniques were utilized for this examination: 1. Automated exposure control 2. Adjustment of the mA and/or kV according to patient size 3. Use of iterative reconstruction technique Electronically signed by: Matheus Handley MD (07/12/2018 12:44 PM) [facility]
--- NOTE | 2018-07-12 13:18 | PDOC ---
PROGRESS NOTES Chief Complaint Chief Complaint fever, leukocytosis, SIRS, no organ dysfuntion acute back pain multiple myeloma w.anemia urinary retention acute metabolic encephalopathy History of Present Illness History of Present Illness vancomycin, cefepime and Levaquin IV per ID Strep pneumo antigen & Legionella pending Resp viral panel - not available Blood cults NGTD Strep screen neg Overall pt is improving Did c/o chills thought to be related to Velcade as he c/o similar symptoms on last administration Vitals Vitals Vital Signs Date Time Temp Pulse Resp B/P (MAP) Pulse Ox O2 Delivery O2 Flow Rate FiO2 07/12/18 10:54 97.9 82 16 151/86 (107) 100 Room Air 97.9 Physical Exam Physical Exam GENERAL: Standing at the bed side watching TV, NAD HEENT: Pupils equal and reactive. Oral cavity, pharynx is clear. NECK: Supple, no JVD. LUNGS: Clear HEART: S1, S2. ABDOMEN: Obese, soft, nontender, nondistended, positive bowel sounds. EXTREMITIES: No clubbing, cyanosis or gross edema. SKIN: Warm to touch without signs of rash. Tattoo NEUROLOGIC: Nonfocal and appropriate. PIV General: Alert, Oriented X3 Heart: Normal S1, Normal S2 Labs LABS Laboratory Tests Test 07/12/18 03:40 Creatinine 0.8 mg/dL (0.7-1.3) Estimated GFR (Cockcroft-Gault) 99.6 Assessment and Plan Assessmemt and Plan Problems Medical Problems: (1) Fever and chills Status: Acute (2) Multiple myeloma Status: Acute Comment Review of Relevant I have reviewed the following items cristina (where applicable) has been applied. Labs Laboratory Tests Test 07/11/18 00:35 07/11/18 10:55 07/11/18 12:30 07/12/18 03:40 Vancomycin Level Trough 13.5 mcg/mL (10.0-20.0) Vancomycin Last Dose Date [id number] Vancomycin Last Dose Time 1300 Urine Collection Type Unknown Urine Color Yellow Urine Clarity Clear Urine pH 6.0 Urine Specific [place] 1.010 Urine Protein Negative mg/dL (NEG-TRACE) Urine Glucose (UA) Negative mg/dL (NEG) Urine Ketones (Stick) Negative mg/dL (NEG) Urine Blood Negative (NEG) Urine Nitrite Negative (NEG) Urine Bilirubin Negative (NEG) Urine Urobilinogen Dipstick 0.2 mg/dL (0.2 mg/dL) Urine Leukocyte Esterase Negative (NEG) Urine RBC 0 /HPF (0-2) Urine WBC 0 /HPF (0-4) Urine Bacteria 0 /HPF (0-FEW) Urine Mucus Slight /LPF White Blood Count 4.2 x10^3/uL (4.0-11.0) Red Blood Count 2.51 x10^6/uL (4.30-5.70) Hemoglobin 8.6 g/dL (13.0-17.5) Hematocrit 24.3 % (39.0-53.0) Mean Corpuscular Volume 97 fL (79-100) Mean Corpuscular Hemoglobin 34 pg (25-35) Mean Corpuscular Hemoglobin Concent 35 g/dL (31-37) Red Cell Distribution Width 21.9 % (11.5-14.5) Platelet Count 137 x10^3/uL (140-400) Neutrophils (%) (Auto) 65 % (31-73) Lymphocytes (%) (Auto) 24 % (24-48) Monocytes (%) (Auto) 8 % (0-9) Eosinophils (%) (Auto) 3 % (0-3) Basophils (%) (Auto) 0 % (0-3) Neutrophils # (Auto) 2.8 x10^3uL (1.8-7.7) Lymphocytes # (Auto) 1.0 x10^3/uL (1.0-4.8) Monocytes # (Auto) 0.3 x10^3/uL (0.0-1.1) Eosinophils # (Auto) 0.1 x10^3/uL (0.0-0.7) Basophils # (Auto) 0.0 x10^3/uL (0.0-0.2) Sodium Level 138 mmol/L (136-145) Potassium Level 3.4 mmol/L (3.5-5.1) Chloride Level 101 mmol/L (98-107) Carbon Dioxide Level 25 mmol/L (21-32) Anion Gap 12 (6-14) Blood Urea Nitrogen 9 mg/dL (8-26) Creatinine 0.8 mg/dL (0.7-1.3) 0.8 mg/dL (0.7-1.3) Estimated GFR (Cockcroft-Gault) 99.6 99.6 BUN/Creatinine Ratio 11 (6-20) Glucose Level 103 mg/dL (70-99) Calcium Level 7.4 mg/dL (8.5-10.1) Total Bilirubin 0.4 mg/dL (0.2-1.0) Aspartate Amino Transf (AST/SGOT) 25 U/L (15-37) Alanine Aminotransferase (ALT/SGPT) 22 U/L (16-63) Alkaline Phosphatase 79 U/L (46-116) Total Protein 8.5 g/dL (6.4-8.2) Albumin 2.8 g/dL (3.4-5.0) Albumin/Globulin Ratio 0.5 (1.0-1.7) Laboratory Tests Test 07/12/18 03:40 Creatinine 0.8 mg/dL (0.7-1.3) Estimated GFR (Cockcroft-Gault) 99.6 Microbiology 07/09/18 Blood Culture - Preliminary, Resulted NO GROWTH AFTER 3 DAYS 07/09/18 Throat Culture - Final, Complete 07/09/18 - Final, Complete Medications Current Medications Acetaminophen (Tylenol) 1,000 mg 1X ONCE PO Last administered on 07/08/18at 20: 00; Start 07/08/18 at 20:00; Stop 07/08/18 at 20:01; Status DC Sodium Chloride 1,000 ml @ 1,000 mls/hr Q1H IV Last administered on 07/08/18at 19:57; Start 07/08/18 at 19:57; Stop 07/08/18 at 20:56; Status DC Ketorolac Tromethamine (Toradol 30mg Vial) 30 mg 1X ONCE IV Last administered on 07/08/18at 22:00; Start 07/08/18 at 22:00; Stop 07/08/18 at 22:01; Status DC Ondansetron HCl (Zofran) 4 mg 1X ONCE IV Last administered on 07/08/18at 22:00 ; Start 07/08/18 at 22:00; Stop 07/08/18 at 22:01; Status DC Ketorolac Tromethamine (Toradol 30mg Vial) 30 mg STK-MED ONCE .ROUTE ; Start at 21:35; Stop 07/08/18 at 21:36; Status DC Ondansetron HCl (Zofran) 4 mg STK-MED ONCE .ROUTE ; Start 07/08/18 at 21:36; Stop 07/08/18 at 21:37; Status DC Levofloxacin/ Dextrose 150 ml @ 100 mls/hr 1X ONCE IV Last administered on at 22:30; Start 07/08/18 at 22:30; Stop 07/08/18 at 23:59; Status DC Sodium Chloride 1,000 ml @ 75 mls/hr 1X ONCE IV Last administered on at 23:00; Start 07/08/18 at 23:00; Stop 07/09/18 at 12:19; Status DC Influenza Virus Vaccine (Afluria Trivalent 1299-2618 Syringe) 0.5 ml ONCE ONCE VAX IM ; Start 07/09/18 at 09:00; Stop 07/09/18 at 09:01; Status DC Morphine Sulfate (Morphine Sulfate) 2 mg PRN Q3HRS PRN IV SEVERE PAIN Last administered on 07/11/18at 21:14; Start 07/09/18 at 01:30 Acetaminophen (Tylenol) 500 mg PRN Q6HRS PRN PO MILD PAIN / TEMP Last administered on 07/10/18at 19:37; Start 07/09/18 at 09:15 Levofloxacin/ Dextrose 100 ml @ 100 mls/hr Q24H IV Last administered on at 21:11; Start 07/09/18 at 22:00; Stop 07/12/18 at 12:00; Status DC Cefepime HCl 1 gm/ Dextrose 50 ml @ 100 mls/hr Q8HRS IV ; Start 07/09/18 at 14: 00; Status UNV Vancomycin HCl (Vanco Per Pharmacy) 1 each PRN DAILY PRN MC SEE COMMENTS Last administered on 07/11/18at 08:23; Start 07/09/18 at 11:30; Stop 07/12/18 at 12:00 ; Status DC Bortezomib (Velcade) 3 mg 1X ONCE SQ Last administered on 07/09/18at 12:22; Start 07/09/18 at 12:00; Stop 07/09/18 at 12:01; Status DC Cefepime HCl (Maxipime) 1 gm Q8HRS IVP Last administered on 07/12/18at 06:14; Start 07/09/18 at 12:00; Stop 07/12/18 at 12:00; Status DC Vancomycin HCl 2 gm/Sodium Chloride 500 ml @ 250 mls/hr 1X ONCE IV Last administered on 07/09/18at 13:22; Start 07/09/18 at 12:00; Stop 07/09/18 at 13:59 ; Status DC Allopurinol (Zyloprim) 300 mg DAILY PO Last administered on 07/12/18at 11:05; Start 07/10/18 at 09:00 Aspirin (Debbie Aspirin) 325 mg DAILY PO Last administered on 07/12/18at 11:06; Start 07/10/18 at 09:00 Acetaminophen/ Hydrocodone Bitart (Lortab 5/325) 1 tab PRN Q6HRS PRN PO MODERATE-SEVERE PAIN Last administered on 07/12/18at 03:47; Start 07/09/18 at 15: 45 Acyclovir (Zovirax) 800 mg BID PO Last administered on 07/12/18at 11:04; Start 07/09/18 at 21:00 Citalopram Hydrobromide (CeleXA) 20 mg DAILY PO Last administered on 07/12/18at 11:04; Start 07/10/18 at 09:00 Fluticasone Propionate (Flonase) 2 spray DAILY NS ; Start 07/10/18 at 09:00; Status Cancel Gabapentin (Neurontin) 300 mg TID PO Last administered on 07/12/18at 11:06; Start 07/09/18 at 21:00 Pantoprazole Sodium (Protonix) 40 mg DAILYAC PO Last administered on 07/12/18at 06:14; Start 07/09/18 at 16:30 Fluticasone Propionate (Flonase) 2 spray DAILY NS Last administered on at 11:06; Start 07/10/18 at 09:00 Vancomycin HCl 1.5 gm/Sodium Chloride 500 ml @ 250 mls/hr Q12H IV Last administered on 07/12/18at 00:54; Start 07/10/18 at 01:00; Stop 07/12/18 at 12:00 ; Status DC Vancomycin HCl (Vancomycin Trough Level) 1 each 1X ONCE MC Last administered on 07/11/18at 00:30; Start 07/11/18 at 00:30; Stop 07/11/18 at 00:31; Status DC Potassium Chloride (Klor-Con) 40 meq 1X ONCE PO Last administered on at 00:52; Start 07/12/18 at 00:00; Stop 07/12/18 at 00:01; Status DC Tamsulosin HCl (Flomax) 0.4 mg QHS PO Last administered on 07/12/18at 00:52; Start 07/12/18 at 00:30 Iohexol (Omnipaque 240 Mg/ml) 50 ml 1X ONCE PO ; Start 07/12/18 at 08:45; Stop 07/12/18 at 08:46; Status DC Iohexol (Omnipaque 300 Mg/ml) 75 ml 1X ONCE IV ; Start 07/12/18 at 08:45; Stop 07/12/18 at 08:46; Status DC Info (CONTRAST GIVEN -- Rx MONITORING) 1 each PRN DAILY PRN MC SEE COMMENTS; Start 07/12/18 at 08:45; Stop 07/14/18 at 08:44 Dexamethasone (Decadron) 40 mg 1X ONCE PO ; Start 07/13/18 at 09:15; Stop 07/13 at 09:16 Gadobutrol (Gadavist) 10 mmol 1X ONCE IV Last administered on 07/12/18at 11:51 ; Start 07/12/18 at 12:00; Stop 07/12/18 at 12:01; Status DC Levofloxacin (Levaquin) 500 mg DAILY06 PO ; Start 07/13/18 at 06:00 Active Scripts Active Reported Revlimid (Lenalidomide) 25 Mg Capsule 25 Mg PO Gabapentin 300 Mg Capsule 300 Mg PO BID Sulfamethoxazole-Tmp Ds Tablet (Sulfamethoxazole/Trimethoprim) 1 Each Tablet 1 Tab PO BID Dexamethasone 4 Mg Tablet 40 Mg PO WEEKLY Acyclovir 800 Mg Tablet 1 Tab PO BID Aspirin 325 Mg Tablet 1 Tab PO DAILY Hyzaar 100-25 Tablet (Losartan/Hydrochlorothiazide) 1 Each Tablet 1 Each PO DAILY Hydrocodone-Apap 5-325 (Hydrocodone Bit/Acetaminophen) 1 Each Tablet 1 Tab PO PRN Q6HRS PRN Escitalopram Oxalate 10 Mg Tablet 10 Mg PO DAILY Flonase Allergy Relief (Fluticasone Propionate) 9.9 Ml [place].susp 2 Sprays NS DAILY Meloxicam 7.5 Mg Tablet 7.5 Mg PO DAILY Prilosec Otc (Omeprazole Magnesium) 20 Mg Tablet.dr 40 Mg PO DAILY Allopurinol 300 Mg Tablet 300 Mg PO DAILY Vitals/I & O Vital Sign - Last 24 Hours 07/11/18 07/11/18 07/11/18 07/11/18 15:00 15:06 16:06 19:00 Temp 98.8 97.7 98.8 97.7 Pulse 86 89 Resp 18 16 16 18 B/P (MAP) 116/60 (78) 143/90 (107) Pulse Ox 100 100 O2 Delivery Room Air Room Air Room Air 07/11/18 07/11/18 07/11/18 07/11/18 20:16 21:14 23:00 23:00 Temp 98.0 98.0 Pulse 86 Resp 18 B/P (MAP) 134/79 (97) Pulse Ox 99 O2 Delivery Room Air Room Air Room Air Room Air 07/12/18 07/12/18 07/12/18 07/12/18 03:00 03:47 04:48 07:00 Temp 97.4 97.4 97.4 97.4 Pulse 86 84 Resp 18 14 B/P (MAP) 140/98 (112) 150/91 (110) Pulse Ox 99 99 O2 Delivery Room Air Room Air Room Air Room Air 07/12/18 10:54 Temp 97.9 97.9 Pulse 82 Resp 16 B/P (MAP) 151/86 (107) Pulse Ox 100 O2 Delivery Room Air Intake and Output 07/11/18 07/11/18 07/12/18 15:00 23:00 07:00 Intake Total 380 ml 580 ml Output Total 650 ml Balance 380 ml -70 ml ANAYELI FLOWERS MD Jul 12, 2018 13:18
[2018-07-12 15:00] VITALS: BP 140/68
[2018-07-12 19:00] VITALS: BP 119/77
[2018-07-12] MEDS: ACETAMINOPHEN 500 MG TABLET PO PRN (21:48)
[2018-07-12 23:00] VITALS: BP 142/94
[2018-07-13 03:04] VITALS: BP 155/89
[2018-07-13 05:54] LABS: CREATININE 0.7 mg/dL (0.7-1.3); GFR 116.2
[2018-07-13] MEDS: ACETAMINOPHEN 500 MG TABLET PO PRN (06:25)
[2018-07-13 07:00] VITALS: BP 148/90
[2018-07-13] MEDS ORDERED: DEXAMETHASONE 4 MG TABLET PO ONE (07:00)
[2018-07-13] MEDS ORDERED: TAMS0.4C97 PO (08:34)
[2018-07-13] MEDS ORDERED: LEVO500T59 PO (08:34)
[2018-07-13] MEDS: FLUTICASONE 50MCG/NASAL SPRAY 16GM BOTTLE. NS SCH (08:40)
[2018-07-13] MEDS: GABAPENTIN 300 MG CAPSULE. PO SCH (08:40)
[2018-07-13] MEDS: ALLOPURINOL 300 MG TABLET. PO SCH (08:40)
[2018-07-13] MEDS: ACYCLOVIR 200 MG CAPSULE. PO SCH (08:40)
[2018-07-13] MEDS: CITALOPRAM 20 MG TABLET. PO SCH (08:40)
[2018-07-13] MEDS: ASPIRIN 325 MG TABLET PO SCH (08:40)
[2018-07-13] MEDS: PANTOPRAZOLE 40 MG TABLET.DR. PO SCH (08:40)
--- NOTE | 2018-07-13 08:42 | PDOC ---
PROGRESS NOTES Subjective Subjective HPI -f/u of IgA kappa multiple myeloma ROS - urinary retention resolved, back pain stable Objective Objective Vital Signs Date Time Temp Pulse Resp B/P (MAP) Pulse Ox O2 Delivery O2 Flow Rate FiO2 07/13/18 07:00 99.0 94 18 148/90 (109) 96 Room Air 99.0 Intake and Output 07/13/18 07:00 Intake Total 750 ml Output Total 800 ml Balance -50 ml Intake Oral 750 ml Output Urine Total 800 ml # Voids 2 Physical Exam Heart: Normal S1, Normal S2 General: Alert, Oriented X3 Lungs: Clear to auscultation Neuro: Normal speech Psych/Mental Status: Mental status NL Assessment Assessment Problems Medical Problems: (1) Fever and chills Status: Acute (2) Multiple myeloma Status: Acute IMPRESSION AND PLAN: 1. IgA kappa multiple myeloma diagnosed by a bone marrow biopsy on 06/25/2018. He received Decadron 40 mg daily for 4 days from 06/25/2018. After confirmation of diagnosis, he was started on chemotherapy with Velcade, Decadron and Revlimid from 07/06/2018. Revlimid was not available until 07/08/2018, and he took 1 dose on 07/08/2018. He was hospitalized subsequently and hence, I have advised him to hold Revlimid until his fever and infection is resolved. s/p with cycle #1, day #4 of Velcade on 07/09/2018. Plan C1Day8 velcade (and decadron 40 mg) on 07/13/18. Resume revlimid 07/13/18. Ok to d/c home today. f/u with me 07/16/[address] Cerna 2. Fever, which could be infection versus drug reaction. There is suggestion of atypical infection per chest x-ray. Hence, I consulted Infectious Diseases. Further management regarding antibiotics per Infectious Diseases. Afebrile. 3. Anemia. Hemoglobin worse at 8.6. Continue to monitor. Transfuse if hemoglobin drops to below 7. 4. Low Back pain and urinary retention (now resolved), MRI lumbar spine reveals no cord compression. There is transitional anatomy of the lumbar spine as described. There is [id number] spinal stenosis at what is considered L3-4. There is more advanced degenerative disc disease at what is considered L3-4 and L4-5, spondylosis at the same levels. There is no significant lumbar neural foramina compromise, minimal narrowing greater distally on the right at L3-4. There are small edematous enhancing marrow lesions, evidence of multiple myeloma as per history. There is distention of the visualized urinary bladder. Appreciate urology consult. Comment Review of Relevant I have reviewed the following items cristina (where applicable) has been applied. Labs Laboratory Tests Test 07/11/18 10:55 07/11/18 12:30 07/12/18 03:40 07/13/18 05:10 Urine Collection Type Unknown Urine Color Yellow Urine Clarity Clear Urine pH 6.0 Urine Specific Marceline 1.010 Urine Protein Negative mg/dL (NEG-TRACE) Urine Glucose (UA) Negative mg/dL (NEG) Urine Ketones (Stick) Negative mg/dL (NEG) Urine Blood Negative (NEG) Urine Nitrite Negative (NEG) Urine Bilirubin Negative (NEG) Urine Urobilinogen Dipstick 0.2 mg/dL (0.2 mg/dL) Urine Leukocyte Esterase Negative (NEG) Urine RBC 0 /HPF (0-2) Urine WBC 0 /HPF (0-4) Urine Bacteria 0 /HPF (0-FEW) Urine Mucus Slight /LPF White Blood Count 4.2 x10^3/uL (4.0-11.0) Red Blood Count 2.51 x10^6/uL (4.30-5.70) Hemoglobin 8.6 g/dL (13.0-17.5) Hematocrit 24.3 % (39.0-53.0) Mean Corpuscular Volume 97 fL (79-100) Mean Corpuscular Hemoglobin 34 pg (25-35) Mean Corpuscular Hemoglobin Concent 35 g/dL (31-37) Red Cell Distribution Width 21.9 % (11.5-14.5) Platelet Count 137 x10^3/uL (140-400) Neutrophils (%) (Auto) 65 % (31-73) Lymphocytes (%) (Auto) 24 % (24-48) Monocytes (%) (Auto) 8 % (0-9) Eosinophils (%) (Auto) 3 % (0-3) Basophils (%) (Auto) 0 % (0-3) Neutrophils # (Auto) 2.8 x10^3uL (1.8-7.7) Lymphocytes # (Auto) 1.0 x10^3/uL (1.0-4.8) Monocytes # (Auto) 0.3 x10^3/uL (0.0-1.1) Eosinophils # (Auto) 0.1 x10^3/uL (0.0-0.7) Basophils # (Auto) 0.0 x10^3/uL (0.0-0.2) Sodium Level 138 mmol/L (136-145) Potassium Level 3.4 mmol/L (3.5-5.1) Chloride Level 101 mmol/L (98-107) Carbon Dioxide Level 25 mmol/L (21-32) Anion Gap 12 (6-14) Blood Urea Nitrogen 9 mg/dL (8-26) Creatinine 0.8 mg/dL (0.7-1.3) 0.8 mg/dL (0.7-1.3) 0.7 mg/dL (0.7-1.3) Estimated GFR (Cockcroft-Gault) 99.6 99.6 116.2 BUN/Creatinine Ratio 11 (6-20) Glucose Level 103 mg/dL (70-99) Calcium Level 7.4 mg/dL (8.5-10.1) Total Bilirubin 0.4 mg/dL (0.2-1.0) Aspartate Amino Transf (AST/SGOT) 25 U/L (15-37) Alanine Aminotransferase (ALT/SGPT) 22 U/L (16-63) Alkaline Phosphatase 79 U/L (46-116) Total Protein 8.5 g/dL (6.4-8.2) Albumin 2.8 g/dL (3.4-5.0) Albumin/Globulin Ratio 0.5 (1.0-1.7) Laboratory Tests Test 07/13/18 05:10 Creatinine 0.7 mg/dL (0.7-1.3) Estimated GFR (Cockcroft-Gault) 116.2 Microbiology 07/09/18 Blood Culture - Preliminary, Resulted NO GROWTH AFTER 3 DAYS 07/09/18 Throat Culture - Final, Complete 07/09/18 - Final, Complete Medications Current Medications Acetaminophen (Tylenol) 1,000 mg 1X ONCE PO Last administered on 07/08/18at 20: 00; Start 07/08/18 at 20:00; Stop 07/08/18 at 20:01; Status DC Sodium Chloride 1,000 ml @ 1,000 mls/hr Q1H IV Last administered on 07/08/18at 19:57; Start 07/08/18 at 19:57; Stop 07/08/18 at 20:56; Status DC Ketorolac Tromethamine (Toradol 30mg Vial) 30 mg 1X ONCE IV Last administered on 07/08/18at 22:00; Start 07/08/18 at 22:00; Stop 07/08/18 at 22:01; Status DC Ondansetron HCl (Zofran) 4 mg 1X ONCE IV Last administered on 07/08/18at 22:00 ; Start 07/08/18 at 22:00; Stop 07/08/18 at 22:01; Status DC Ketorolac Tromethamine (Toradol 30mg Vial) 30 mg STK-MED ONCE .ROUTE ; Start at 21:35; Stop 07/08/18 at 21:36; Status DC Ondansetron HCl (Zofran) 4 mg STK-MED ONCE .ROUTE ; Start 07/08/18 at 21:36; Stop 07/08/18 at 21:37; Status DC Levofloxacin/ Dextrose 150 ml @ 100 mls/hr 1X ONCE IV Last administered on at 22:30; Start 07/08/18 at 22:30; Stop 07/08/18 at 23:59; Status DC Sodium Chloride 1,000 ml @ 75 mls/hr 1X ONCE IV Last administered on at 23:00; Start 07/08/18 at 23:00; Stop 07/09/18 at 12:19; Status DC Influenza Virus Vaccine (Afluria Trivalent [id number] Syringe) 0.5 ml ONCE ONCE VAX IM ; Start 07/09/18 at 09:00; Stop 07/09/18 at 09:01; Status DC Morphine Sulfate (Morphine Sulfate) 2 mg PRN Q3HRS PRN IV SEVERE PAIN Last administered on 07/11/18at 21:14; Start 07/09/18 at 01:30 Acetaminophen (Tylenol) 500 mg PRN Q6HRS PRN PO MILD PAIN / TEMP Last administered on 07/13/18at 06:25; Start 07/09/18 at 09:15 Levofloxacin/ Dextrose 100 ml @ 100 mls/hr Q24H IV Last administered on at 21:11; Start 07/09/18 at 22:00; Stop 07/12/18 at 12:00; Status DC Cefepime HCl 1 gm/ Dextrose 50 ml @ 100 mls/hr Q8HRS IV ; Start 07/09/18 at 14: 00; Status UNV Vancomycin HCl (Vanco Per Pharmacy) 1 each PRN DAILY PRN MC SEE COMMENTS Last administered on 07/11/18at 08:23; Start 07/09/18 at 11:30; Stop 07/12/18 at 12:00 ; Status DC Bortezomib (Velcade) 3 mg 1X ONCE SQ Last administered on 07/09/18at 12:22; Start 07/09/18 at 12:00; Stop 07/09/18 at 12:01; Status DC Cefepime HCl (Maxipime) 1 gm Q8HRS IVP Last administered on 07/12/18at 06:14; Start 07/09/18 at 12:00; Stop 07/12/18 at 12:00; Status DC Vancomycin HCl 2 gm/Sodium Chloride 500 ml @ 250 mls/hr 1X ONCE IV Last administered on 07/09/18at 13:22; Start 07/09/18 at 12:00; Stop 07/09/18 at 13:59 ; Status DC Allopurinol (Zyloprim) 300 mg DAILY PO Last administered on 07/12/18at 11:05; Start 07/10/18 at 09:00 Aspirin (Debbie Aspirin) 325 mg DAILY PO Last administered on 07/12/18at 11:06; Start 07/10/18 at 09:00 Acetaminophen/ Hydrocodone Bitart (Lortab 5/325) 1 tab PRN Q6HRS PRN PO MODERATE-SEVERE PAIN Last administered on 07/12/18at 03:47; Start 07/09/18 at 15: 45 Acyclovir (Zovirax) 800 mg BID PO Last administered on 07/12/18at 21:46; Start 07/09/18 at 21:00 Citalopram Hydrobromide (CeleXA) 20 mg DAILY PO Last administered on 07/12/18at 11:04; Start 07/10/18 at 09:00 Fluticasone Propionate (Flonase) 2 spray DAILY NS ; Start 07/10/18 at 09:00; Status Cancel Gabapentin (Neurontin) 300 mg TID PO Last administered on 07/12/18at 21:46; Start 07/09/18 at 21:00 Pantoprazole Sodium (Protonix) 40 mg DAILYAC PO Last administered on 07/12/18at 06:14; Start 07/09/18 at 16:30 Fluticasone Propionate (Flonase) 2 spray DAILY NS Last administered on at 11:06; Start 07/10/18 at 09:00 Vancomycin HCl 1.5 gm/Sodium Chloride 500 ml @ 250 mls/hr Q12H IV Last administered on 07/12/18at 00:54; Start 07/10/18 at 01:00; Stop 07/12/18 at 12:00 ; Status DC Vancomycin HCl (Vancomycin Trough Level) 1 each 1X ONCE MC Last administered on 07/11/18at 00:30; Start 07/11/18 at 00:30; Stop 07/11/18 at 00:31; Status DC Potassium Chloride (Klor-Con) 40 meq 1X ONCE PO Last administered on at 00:52; Start 07/12/18 at 00:00; Stop 07/12/18 at 00:01; Status DC Tamsulosin HCl (Flomax) 0.4 mg QHS PO Last administered on 07/12/18at 21:46; Start 07/12/18 at 00:30 Iohexol (Omnipaque 240 Mg/ml) 50 ml 1X ONCE PO ; Start 07/12/18 at 08:45; Stop 07/12/18 at 08:46; Status DC Iohexol (Omnipaque 300 Mg/ml) 75 ml 1X ONCE IV ; Start 07/12/18 at 08:45; Stop 07/12/18 at 08:46; Status DC Info (CONTRAST GIVEN -- Rx MONITORING) 1 each PRN DAILY PRN MC SEE COMMENTS; Start 07/12/18 at 08:45; Stop 07/14/18 at 08:44 Dexamethasone (Decadron) 40 mg 1X ONCE PO Last administered on 07/13/18at 06:25 ; Start 07/13/18 at 07:00; Stop 07/13/18 at 07:01; Status DC Gadobutrol (Gadavist) 10 mmol 1X ONCE IV Last administered on 07/12/18at 11:51 ; Start 07/12/18 at 12:00; Stop 07/12/18 at 12:01; Status DC Levofloxacin (Levaquin) 500 mg DAILY06 PO Last administered on 07/13/18at 06:25 ; Start 07/13/18 at 06:00 Bortezomib (Velcade) 3 mg 1X ONCE SQ ; Start 07/13/18 at 09:00; Stop 07/13/18 at 09:01 Active Scripts Active Levaquin (Levofloxacin) 500 Mg Tablet 500 Mg PO DAILY06 Flomax (Tamsulosin Hcl) 0.4 Mg Cap.er.24h 0.4 Mg PO QHS Reported Revlimid (Lenalidomide) 25 Mg Capsule 25 Mg PO Gabapentin 300 Mg Capsule 300 Mg PO BID Sulfamethoxazole-Tmp Ds Tablet (Sulfamethoxazole/Trimethoprim) 1 Each Tablet 1 Tab PO BID Dexamethasone 4 Mg Tablet 40 Mg PO WEEKLY Acyclovir 800 Mg Tablet 1 Tab PO BID Aspirin 325 Mg Tablet 1 Tab PO DAILY Hyzaar 100-25 Tablet (Losartan/Hydrochlorothiazide) 1 Each Tablet 1 Each PO DAILY Hydrocodone-Apap 5-325 (Hydrocodone Bit/Acetaminophen) 1 Each Tablet 1 Tab PO PRN Q6HRS PRN Escitalopram Oxalate 10 Mg Tablet 10 Mg PO DAILY Flonase Allergy Relief (Fluticasone Propionate) 9.9 Ml [place].susp 2 Sprays NS DAILY Meloxicam 7.5 Mg Tablet 7.5 Mg PO DAILY Prilosec Otc (Omeprazole Magnesium) 20 Mg Tablet.dr 40 Mg PO DAILY Allopurinol 300 Mg Tablet 300 Mg PO DAILY Vitals/I & O Vital Sign - Last 24 Hours 07/12/18 07/12/18 07/12/18 07/12/18 10:54 15:00 19:00 20:00 Temp 97.9 98.4 98.0 97.9 98.4 98.0 Pulse 82 80 85 Resp 16 16 20 B/P (MAP) 151/86 (107) 140/68 (92) 119/77 (91) Pulse Ox 100 100 100 O2 Delivery Room Air Room Air Room Air Room Air 07/12/18 07/13/18 07/13/18 23:00 03:04 07:00 Temp 98.4 96.8 99.0 98.4 96.8 99.0 Pulse 92 97 94 Resp 20 20 18 B/P (MAP) 142/94 (110) 155/89 (111) 148/90 (109) Pulse Ox 99 98 96 O2 Delivery Room Air Room Air Room Air Intake and Output 07/12/18 07/12/18 07/13/18 15:00 23:00 07:00 Intake Total 750 ml Output Total 800 ml Balance -50 ml PHILLIP FUNEZ MD Jul 13, 2018 08:42
[2018-07-13] MEDS ORDERED: BORTEZOMIB 3.5 MG VIAL SQ ONE (09:00)
[2018-07-13 11:00] VITALS: BP 162/90
--- NOTE | 2018-07-15 15:23 | PDOC3 ---
Discharge Summary Visit Information Date of Admission: Jul 08, 2018 Date of Discharge: Jul 13, 2018 Admitting Diagnosis: SIRS Final Diagnosis fever, leukocytosis, SIRS, no organ dysfuntion treated as sepsis, but no source found acute back pain multiple myeloma w.anemia urinary retention acute metabolic encephalopathy Problems Medical Problems: (1) Fever and chills Status: Acute (2) Multiple myeloma Status: Acute Brief Hospital Course Allergies Allergies Coded Allergies Type Severity Reaction Last Updated Verified amoxicillin Allergy Intermediate 07/06/18 Yes Penicillins Adverse Reaction Intermediate Nausea and Vomiting 07/06/18 Yes Brief Hospital Course Mr. Jerry is a 58 old male with mult myeloma, admit with fever and SIRS, vancomycin, cefepime and Levaquin IV per ID Blood cults neg Strep screen neg he felt much improved at DC Discharge Information Condition at Discharge: Improved Follow Up: Weeks Disposition/Orders: D/C to Home Scheduled Acyclovir (Acyclovir) 800 Mg Tablet, 1 TAB PO BID, #50 (Reported) Entered as Reported by: MARY OROURKE on 07/09/1832 Last Action: Converted on 07/09/181542 by BISI WINTER MD Allopurinol (Allopurinol) 300 Mg Tablet, 300 MG PO DAILY, (Reported) Entered as Reported by: MAURO FISHER on 04/27/14 0732 Last Action: Continued on 07/09/181542 by BISI WINTER MD Aspirin (Aspirin) 325 Mg Tablet, 1 TAB PO DAILY, #30 Ref 5 (Reported) Entered as Reported by: MARY OROURKE on 07/09/1832 Last Action: Continued on 07/09/181542 by BISI WINTER MD Dexamethasone (Dexamethasone) 4 Mg Tablet, 40 MG PO WEEKLY, (Reported) Entered as Reported by: MARY OROURKE on 07/09/1832 Last Action: HELD on 07/09/181542 by BISI WINTER MD Escitalopram Oxalate (Escitalopram Oxalate) 10 Mg Tablet, 10 MG PO DAILY for ANTI-DEPRESSANT, #30 Ref 0 (Reported) Entered as Reported by: BERNARDO CERNA on 06/25/18 0746 Last Action: Converted on 07/09/181542 by BISI WINTER MD Fluticasone Propionate (Flonase Allergy Relief) 9.9 Ml [place].susp, 2 SPRAYS NS DAILY, (Reported) Entered as Reported by: HUMBERTO KATHLEEN on 06/11/18 0915 Last Action: Converted on 07/09/181542 by BISI WINTER MD Gabapentin (Gabapentin) 300 Mg Capsule, 300 MG PO BID, (Reported) Entered as Reported by: MARY OROURKE on 07/09/1832 Last Action: Converted on 07/09/181542 by BISI WINTER MD Levofloxacin (Levaquin) 500 Mg Tablet, 500 MG PO DAILY06, #7 Prescribed by: ANAYELI FLOWERS on 07/13/18 0834 Losartan/Hydrochlorothiazide (Hyzaar 100-25 Tablet) 1 Each Tablet, 1 EACH PO DAILY, (Reported) Entered as Reported by: BERNARDO CERNA on 06/25/18 0746 Last Action: HELD on 07/09/181542 by IBSI WINTER MD Meloxicam (Meloxicam) 7.5 Mg Tablet, 7.5 MG PO DAILY, (Reported) Entered as Reported by: KATIE AUGUSTINE on 12/04/151542 Last Action: HELD on 07/09/181542 by BISI WINTER MD Omeprazole Magnesium (Prilosec Otc) 20 Mg Tablet.dr, 40 MG PO DAILY, (Reported) Entered as Reported by: MAURO FISHER on 04/27/14 0732 Last Action: Converted on 07/09/181542 by BISI WINTER MD Sulfamethoxazole/Trimethoprim (Sulfamethoxazole-Tmp Ds Tablet) 1 Each Tablet, 1 TAB PO BID, #14 (Reported) Entered as Reported by: MARY OROURKE on 07/09/1832 Last Action: HELD on 07/09/181542 by BISI WINTER MD Tamsulosin Hcl (Flomax) 0.4 Mg Cap.er.24h, 0.4 MG PO QHS, #30 Ref 1 Prescribed by: ANAYELI FLOWERS on 07/13/18 0834 Scheduled PRN Hydrocodone Bit/Acetaminophen (Hydrocodone-Apap 5-325 ) 1 Each Tablet, 1 TAB PO PRN Q6HRS PRN for PAIN, Ref 0 (Reported) Entered as Reported by: BERNARDO CERNA on 06/25/18 0746 Last Action: Continued on 07/09/181542 by BISI WINTER MD Miscellaneous Medications Lenalidomide (Revlimid) 25 Mg Capsule, 25 MG PO, (Reported) Entered as Reported by: MARY OROURKE on 07/09/1832 Last Action: HELD on 07/09/181542 by BISI WINTER MD Discontinued Medications Quetiapine Fumarate (Seroquel) 25 Mg Tablet, 1 TAB PO QHS, #30 Ref 1 (Reported) Entered as Reported by: HUMBERTO KATHLEEN on 06/11/18 0915 Last Action: Discontinued on 07/09/1832 by ANAYELI BAZAN MD Jul 15, 2018 15:23
== END 2018-07-13 10:45 | disposition home or self-care (01) | DRG 840 ==
LOC: ER 19:14 → 5 NORTH 22:30
PROVIDERS: ADMIT Family Medicine; ATTEND Family Medicine
DX: C90.00 Multiple myeloma not having achieved remission (principal); G93.41 Metabolic encephalopathy; R65.10 Systemic inflammatory response syndrome (SIRS) of non-infectious origin without acute organ dysfunction; I10 Essential (primary) hypertension; E78.00 Pure hypercholesterolemia, unspecified; F41.9 Anxiety disorder, unspecified; M10.9 Gout, unspecified; Z87.891 Personal history of nicotine dependence; Z88.1 Allergy status to other antibiotic agents; Z88.0 Allergy status to penicillin; K21.9 Gastro-esophageal reflux disease without esophagitis; K57.90 Diverticulosis of intestine, part unspecified, without perforation or abscess without bleeding; K81.9 Cholecystitis, unspecified; E78.5 Hyperlipidemia, unspecified; K29.70 Gastritis, unspecified, without bleeding; D64.9 Anemia, unspecified; T50.905A Adverse effect of unspecified drugs, medicaments and biological substances, initial encounter; Y92.89 Other specified places as the place of occurrence of the external cause; R33.9 Retention of urine, unspecified; M47.9 Spondylosis, unspecified; Z82.49 Family history of ischemic heart disease and other diseases of the circulatory system; Z83.3 Family history of diabetes mellitus; Z92.21 Personal history of antineoplastic chemotherapy
CPT/HCPCS: 36415; 71045; 72158; 74176; 80048; 80053; 80202; 81001; 82550; 82565; 83605; 83690; 83735; 84484; 85007; 85025; 86738; 87040; 87070; 87449; 87804; 87880; 93005; 96361; 96365; 96375; A9585; J0692; J1885; J1956; J2270; J2405; J3370; J7030; J7040; J8540; J9041; 99285-25

== ENCOUNTER 2018-07-15 13:27 | Inpatient (IN) | payer OTHER ==
[~2018-07-15] VITALS: Ht 177.8 cm; Wt 101.8 kg
[2018-07-15] VITALS (7 sets, daily range): BP systolic 131–168; BP diastolic 55–86
[~2018-07-15 13:27] MED LIST changes: +ACYC800T PO; +ASPI325T8 PO; +DEXA4TAB PO; +GABA-586 PO; +LENA25CA PO; +LEVO500T59 PO; +SULF-143 PO; +TAMS0.4C97 PO
[2018-07-15] MEDS ORDERED: CEFEPIME HCL 1 GM in IV DEXTROSE 5% 50 ML IV STA (13:55)
[2018-07-15] MEDS ORDERED: IV NORMAL SALINE 1000ML BAG 1,000 ML IV ONE ×2 (14:00→15:30)
[2018-07-15] MEDS ORDERED: ACETAMINOPHEN 500 MG TABLET PO ONE (14:15)
[2018-07-15] MEDS ORDERED: CEFEPIME HCL IV Push 1 GM VIAL. IVP ONE (14:15)
[2018-07-15] MEDS ORDERED: VANCOMYCIN 2 GM in IV NORMAL SALINE 500ML BAG 500 ML IV ONE (14:30)
--- NOTE | 2018-07-15 14:32 | EKG ---
[facility] [address] [place] [address] Test Date: 2018-07-15 Test Time: 14:23:48 Pat Name: JOHN FORTE Department: Room: Gender: M Ordained Minister: : [id number] Requested By: JULIANNA PETERSON Order Number: [id number] Reading MD: Abilio Colbert MD Measurements Intervals [place] Rate: 110 P: 37 VT: 128 QRS: -16 QRSD: 80 T: 56 QT: 324 QTc: 444 Interpretive Statements SINUS TACHYCARDIA Electronically Signed On 07-19-2018 10:59:46 CDT by Abilio Colbert MD
--- NOTE | 2018-07-15 14:54 | RAD ---
EXAM: Chest, single view. HISTORY: Fever. COMPARISON: 07/08/2018 FINDINGS: A frontal view of the chest is obtained. There is no infiltrate, pleural effusion or pneumothorax. The heart is normal in size. There is stable mild elevation of the right diaphragm. IMPRESSION: No acute pulmonary finding. Electronically signed by: Herminia Mclean MD (07/15/2018 2:50 PM) [place] [id number]
[2018-07-15 14:58] LABS: BILIRUBIN,URINE NEGATIVE (NEG); CLARITY,URINE CLEAR; COLOR,URINE YELLOW; NITRITE,URINE NEGATIVE (NEG); PH,URINE 6.5; PROTEIN,URINE NEGATIVE (NEG-TRACE); UROBILINOGEN,URINE 0.2 mg/dL (0.2 mg/dL)
[2018-07-15] MEDS ORDERED: fentaNYL PF VIAL 100 MCG/2 ML VIAL IV ONE ×2 (15:00→15:30)
[2018-07-15] MEDS ORDERED: ONDANSETRON PF 4 MG/2 ML VIAL. IV ONE (15:00)
[2018-07-15 15:21] LABS: BACTERIA,URINE 0 /HPF (0-FEW); HYALINE CASTS, URINE MODERATE /HPF; RBC,URINE 0 /HPF (0-2); WBC,URINE 0 /HPF (0-4)
[2018-07-15 15:30] LABS: BASO % 0 % (0-3); EOS % 0 % (0-3); HEMATOCRIT 24.2 % (39.0-53.0); HEMOGLOBIN 8.6 g/dL (13.0-17.5); LYMPH # 0.2 x10^3/uL (1.0-4.8); LYMPH % 2 % (24-48); MEAN CORPUSCULAR HEMOGLOBIN 34 pg (25-35); MEAN CORPUSCULAR HGB CONC 35 g/dL (31-37); MEAN CORPUSCULAR VOLUME 97 fL (79-100); MONO # 0.3 x10^3/uL (0.0-1.1); MONO % 3 % (0-9); NEUT # 10.3 x10^3uL (1.8-7.7); NEUT % 94 % (31-73); PLATELET COUNT 197 x10^3/uL (140-400); RED BLOOD COUNT 2.49 x10^6/uL (4.30-5.70); RED CELL DISTRIBUTION WIDTH 21.6 % (11.5-14.5)
[2018-07-15] MEDS ORDERED: diphenhydrAMINE 50 MG/ML VIAL IVP ONE (15:30)
[2018-07-15] MEDS ORDERED: METOCLOPRAMIDE HCL 10 MG/2 ML VIAL. IV ONE (15:30)
[2018-07-15] MEDS ORDERED: KETOROLAC 15 MG/ML VIAL. IV ONE (15:30)
[2018-07-15 15:33] LABS: INFLUENZA A PATIENT NEGATIVE (NEGATIVE); INFLUENZA B PATIENT NEGATIVE (NEGATIVE)
[2018-07-15 15:38] LABS: CALCIUM 8.6 mg/dL (8.5-10.1); POTASSIUM 3.5 mmol/L (3.5-5.1)
[2018-07-15 15:44] LABS: ALBUMIN 3.6 g/dL (3.4-5.0); ALBUMIN/GLOBULIN RATIO 0.7 (1.0-1.7); TOTAL BILIRUBIN 0.7 mg/dL (0.2-1.0); TOTAL PROTEIN 8.8 g/dL (6.4-8.2)
[2018-07-15] MEDS ORDERED: LIDOCAINE 2% 20 ML VIAL. IJ ONE (16:15)
[2018-07-15 16:31] LABS: % BANDS 7 % (0-9); % LYMPHS 1 % (24-48); % SEGS 92 % (35-66)
[2018-07-15] MEDS ORDERED: LIDOCAINE 2% PF 2ML VIAL. ONE (16:31)
[2018-07-15 16:33] LABS: ANISOCYTOSIS MOD; PLT ESTIMATE ADEQUATE (ADEQUATE)
[2018-07-15] MEDS ORDERED: IV NORMAL SALINE 1000ML BAG 1,000 ML IV SCH (16:55)
--- NOTE | 2018-07-15 17:10 | RAD ---
CT HEAD WO CONTRAST Indication: HEADACHE, FEVER, CONFUSION, NO PRIORS, HX MULTIPLE MYELOMA W CHEMO Exposure: One or more of the following individualized dose reduction techniques were utilized for this examination: 1. Automated exposure control 2. Adjustment of the mA and/or kV according to patient size 3. Use of iterative reconstruction technique. Comparison: None are available. Contrast: None FINDINGS: Posterior fossa is unremarkable. No evidence of acute intracranial hemorrhage or abnormal extra-axial fluid collection. No evidence of mass effect or midline shift. Mild prominence of ventricles and sulci. Subtle white matter low-density, is nonspecific, could correlate with mild chronic small vessel ischemic disease. Mild intracranial arterial calcifications. Visualized orbits are unremarkable. Minimal mucosal thickening of the sphenoid sinus and ethmoid sinuses. No acute calvarial abnormality. Impression: 1. Subtle white matter low-density bilaterally, is nonspecific but often due to chronic small vessel ischemic disease. 2. No evidence of acute intracranial hemorrhage or mass effect. 3. Minimal paranasal sinus disease. Electronically signed by: Isma Leon MD (07/15/2018 5:07 PM) [id number]
[2018-07-15] MEDS ORDERED: MORPHINE SULFATE 4 MG/ML VIAL. IV ONE (17:45)
[2018-07-15] MEDS ORDERED: ACYCLOVIR SODIUM 730 MG in IV DEXTROSE 5% 250 ML IV ONE (18:00)
--- NOTE | 2018-07-15 18:04 | PHYS DOC ---
Past Medical History Past Medical History: Anxiety, High Cholesterol, Hypertension, Other Additional Past Medical Histor: Gout, multiple myeloma Past Surgical History: Tonsillectomy Alcohol Use: Occasionally Drug Use: None Adult General Chief Complaint Chief Complaint: FEVER HPI HPI Patient is a 58 year old M REFERRED FROM PRIMARY ONCOLOGY FOR FEVER AND ALTERED EMNTAL STATUS. Patient was admitted here earlier in the week and he had a full workup for infectious etiology of fever. His symptoms resolved however then today he woke up he was very confused he had a feVER of 102.5 he was complaining of a severe headache and back pain. He was brought to the oncology clinic where it was recommended that he be evaluated for admission. He is on Revlimid and Decadron. History limited by the patient's mental status says that he is more confused than normal complaint of a severe throbbing headache not coughing is having some issues with urination as well having trouble initiating stream. Review of Systems Review of Systems Limited by patient mental status Current Medications Current Medications Current Medications Medications (Trade) Dose Ordered Sig/Miguelina Start Time Stop Time Status Last Admin Dose Admin Acetaminophen (Tylenol) 1,000 mg 1X ONCE 07/15/18 14:15 07/15/18 14:18 DC 07/15/18 14:40 1,000 MG Cefepime HCl (Maxipime) 1 gm 1X ONCE 07/15/18 14:15 07/15/18 14:18 DC 07/15/18 15:47 1 GM Cefepime HCl 1 gm/ Dextrose 50 ml @ 100 mls/hr 1X STAT 07/15/18 13:55 07/15/18 14:24 UNV Diphenhydramine HCl (Benadryl) 25 mg 1X ONCE 07/15/18 15:30 07/15/18 15:36 DC 07/15/18 15:44 25 MG Fentanyl Citrate (Fentanyl 2ml Vial) 50 mcg 1X ONCE 07/15/18 15:30 07/15/18 15:36 DC 07/15/18 15:43 50 MCG Ketorolac Tromethamine (Toradol 15mg Vial) 15 mg 1X ONCE 07/15/18 15:30 07/15/18 15:36 DC 07/15/18 15:46 15 MG Metoclopramide HCl (Reglan Vial) 10 mg 1X ONCE 07/15/18 15:30 07/15/18 15:36 DC 07/15/18 15:44 10 MG Ondansetron HCl (Zofran) 4 mg 1X ONCE 07/15/18 15:00 07/15/18 15:01 DC 07/15/18 15:00 4 MG Sodium Chloride 1,000 ml @ 1,000 mls/hr 1X ONCE 07/15/18 15:30 07/15/18 16:29 DC 07/15/18 16:18 1,000 MLS/HR Vancomycin HCl (Vanco Per Pharmacy) 1 each PRN DAILY PRN 07/15/18 14:00 UNV Vancomycin HCl 2 gm/Sodium Chloride 500 ml @ 250 mls/hr 1X ONCE 07/15/18 14:30 07/15/18 16:29 DC 07/15/18 15:50 250 MLS/HR Allergies Allergies Allergies Coded Allergies Type Severity Reaction Last Updated Verified amoxicillin Allergy Intermediate 07/06/18 Yes Penicillins Adverse Reaction Intermediate Nausea and Vomiting 07/06/18 Yes Physical Exam Physical Exam Constitutional: Ill-appearing patient is writhing around on the bed. HENT: Normocephalic, atraumatic, bilateral external ears normal, oropharynx moist, no oral exudates, nose normal. [] Eyes: PERRLA, EOMI, conjunctiva normal, no discharge. [] Neck: Normal range of motion, no tenderness, supple, no stridor. [] Cardiovascular: Tachycardic Lungs & Thorax: Decreased bibasilar breath sounds mild tachypnea is noted Abdomen: Bowel sounds normal, soft, no tenderness, no masses, no pulsatile masses. [] Skin: Warm, dry, no erythema, no rash. Reports Back: Diffuse tenderness is noted Extremities: No tenderness, no cyanosis, no clubbing, ROM intact, no edema. [] Neurologic: Patient is alert responsive following commands however appears quite confused is speaking nonsensically at times is writhing around on the bed. Psychologic: Affect normal, judgement normal, mood appears anxious[] Current Patient Data Vital Signs Vital Signs Date Time Temp Pulse Resp B/P (MAP) Pulse Ox O2 Delivery O2 Flow Rate FiO2 07/15/18 15:43 24 07/15/18 15:31 100.1 100.1 07/15/18 14:05 120 141/80 (100) 100 Room Air Lab Values Laboratory Tests Test 07/15/18 14:23 104/18 15:00 07/15/18 15:10 Urine Collection Type Unknown Urine Color Yellow Urine Clarity Clear Urine pH 6.5 Urine Specific [place] 1.015 Urine Protein Negative mg/dL (NEG-TRACE) Urine Glucose (UA) Negative mg/dL (NEG) Urine Ketones (Stick) Negative mg/dL (NEG) Urine Blood Negative (NEG) Urine Nitrite Negative (NEG) Urine Bilirubin Negative (NEG) Urine Urobilinogen Dipstick 0.2 mg/dL (0.2 mg/dL) Urine Leukocyte Esterase Negative (NEG) Urine RBC 0 /HPF (0-2) Urine WBC 0 /HPF (0-4) Urine Transitional Epithelial Cells Few /LPF Urine Bacteria 0 /HPF (0-FEW) Urine Hyaline Casts Moderate /HPF Urine Mucus Mod /LPF Influenza Type A Antigen Negative (NEGATIVE) Influenza Type B Antigen Negative (NEGATIVE) White Blood Count 11.0 x10^3/uL (4.0-11.0) Red Blood Count 2.49 x10^6/uL (4.30-5.70) L Hemoglobin 8.6 g/dL (13.0-17.5) L Hematocrit 24.2 % (39.0-53.0) L Mean Corpuscular Volume 97 fL (79-100) Mean Corpuscular Hemoglobin 34 pg (25-35) Mean Corpuscular Hemoglobin Concent 35 g/dL (31-37) Red Cell Distribution Width 21.6 % (11.5-14.5) H Platelet Count 197 x10^3/uL (140-400) Neutrophils (%) (Auto) 94 % (31-73) H Lymphocytes (%) (Auto) 2 % (24-48) L Monocytes (%) (Auto) 3 % (0-9) Eosinophils (%) (Auto) 0 % (0-3) Basophils (%) (Auto) 0 % (0-3) Neutrophils # (Auto) 10.3 x10^3uL (1.8-7.7) H Lymphocytes # (Auto) 0.2 x10^3/uL (1.0-4.8) L Monocytes # (Auto) 0.3 x10^3/uL (0.0-1.1) Eosinophils # (Auto) 0.0 x10^3/uL (0.0-0.7) Basophils # (Auto) 0.0 x10^3/uL (0.0-0.2) Segmented Neutrophils % 92 % (35-66) H Band Neutrophils % 7 % (0-9) Lymphocytes % 1 % (24-48) L Platelet Estimate Adequate (ADEQUATE) Anisocytosis Mod Macrocytosis Slight Prothrombin Time 14.0 SEC (11.7-14.0) Prothrombin Time INR 1.1 (0.8-1.1) Sodium Level 132 mmol/L (136-145) L Potassium Level 3.5 mmol/L (3.5-5.1) Chloride Level 91 mmol/L (98-107) L Carbon Dioxide Level 24 mmol/L (21-32) Anion Gap 17 (6-14) H Blood Urea Nitrogen 14 mg/dL (8-26) Creatinine 1.0 mg/dL (0.7-1.3) Estimated GFR (Cockcroft-Gault) 77.0 BUN/Creatinine Ratio 14 (6-20) Glucose Level 118 mg/dL (70-99) H Lactic Acid Level 2.7 mmol/L (0.4-2.0) H Calcium Level 8.6 mg/dL (8.5-10.1) Total Bilirubin 0.7 mg/dL (0.2-1.0) Aspartate Amino Transferase (AST) 26 U/L (15-37) Alanine Aminotransferase (ALT) 23 U/L (16-63) Alkaline Phosphatase 95 U/L (46-116) Troponin I Quantitative < 0.017 ng/mL (0.000-0.055) Total Protein 8.8 g/dL (6.4-8.2) H Albumin 3.6 g/dL (3.4-5.0) Albumin/Globulin Ratio 0.7 (1.0-1.7) L Lipase 167 U/L (73-393) Procalcitonin 0.23 ng/mL (0.00-0.10) H Laboratory Tests 07/15/18 15:10 Laboratory Tests 07/15/18 15:10 EKG EKG EKG shows a sinus tach rate 110 no obvious acute ischemic changes noted no STEMI interpreted by me the time of encounter intervals are normal.[] Radiology/Procedures Radiology/Procedures [] Impressions: FINDINGS: A frontal view of the chest is obtained. There is no infiltrate, pleural effusion or pneumothorax. The heart is normal in size. There is stable mild elevation of the right diaphragm. IMPRESSION: No acute pulmonary finding. Electronically signed by: Herminia Headley MD (07/15/2018 2:50 PM) [facility] DICTATED and SIGNED BY: HERMINIA HEADLEY MD DATE: 07/15/18 1449 Impression: 1. Subtle white matter low-density bilaterally, is nonspecific but often due to chronic small vessel ischemic disease. 2. No evidence of acute intracranial hemorrhage or mass effect. 3. Minimal paranasal sinus disease. Electronically signed by: Isma Leon MD (07/15/2018 5:07 PM) [facility] Course & Med Decision Making Course & Med Decision Making Pertinent Labs and Imaging studies reviewed. (See chart for details) []58-year-old male with a history of multiple myeloma on Revlimid who is presenting from the oncology clinic with a fever. He is noted to have a white blood count of 11,000. He is maintaining his blood pressure he is tachycardic he is quite altered he is complaining of a severe headache he received multiple doses of IV narcotics with minimal relief of this headache. Head CT was performed showed no ICH. LUMBAR PUNCTURE NOTE: The area was prepped and draped in the usual sterile fashion. Informed consent was obtained prior to the procedure. Lidocaine was used for subcutaneous anesthesia. The L2-3 interspace was entered with a 20-gauge needle CLOUDY CSF was returned the patient tolerated well neuro intact after the procedure. Critical care time was 40 minutes exclusive of procedures. For management of acute altered mental status with fever requiring multiple doses of pain medication Ativan frequent reassessments and discussion with consultants discussion with family consideration differential diagnosis. The patient's coronary intensive care unit for aggressive nursing care and antibiotic therapy. D/W DR LONGORIA FROM ID: [id number] WITH VANC/CEFEPIME AND LP, CONSIDER ADDING [employer] COVERAGE PENDING CSF RESULTS. D/W LIONEL ADMIT TO HOSPITALIST, HE ALSO D/W ARMIN. CSF CLOUDY PENDING RESULTS AT THIS TIME, LIONEL AWARE OF PENDING RESULTS. Dragon Disclaimer Dragon Disclaimer This electronic medical record was generated, in whole or in part, using a voice recognition dictation system. Departure Departure Impression: Primary Impression: Altered mental status Disposition: ADMITTED INPATIENT Admitting Physician: Georgina Cerna Condition: GUARDED Referrals: SUSAN BOX APRN (PCP) JULIANNA PETERSON MD Jul 15, 2018 18:04
[2018-07-15 18:27] LABS: CSF PROTEIN 318.8 mg/dL (15.0-45.0)
[2018-07-15] MEDS: VANCOMYCIN PER PHARMACY MC PRN (18:42)
[2018-07-15 18:50] LABS: CSF CLARITY CLOUDY; CSF COLOR COLORLESS
[2018-07-15 18:51] LABS: CSF MON % 2 %; CSF PMN % 98 %; CSF RBC COUNT 20; CSF WBC COUNT 4068
[2018-07-15] MEDS ORDERED: SULFAMETH/TRIMETH 20 ML in IV DEXTROSE 5% 500 ML IV SCH (19:00)
[2018-07-15] MEDS ORDERED: DEXTROSE 5% IV SCH (19:00)
[2018-07-15] MEDS: fentaNYL PF VIAL 100 MCG/2 ML VIAL IV PRN ×2 (19:19→22:09)
[2018-07-15] MEDS: AMPICILLIN SODIUM 2 GM in IV NORMAL SALINE 100ML 100 ML IV SCH (20:16)
--- NOTE | 2018-07-15 21:50 | PDOC1 ---
History and Physical Date of Admission Date of Admission DATE: 07/15/18 TIME: 21:49 Source Source: Caregiver, Chart review History of Present Illness History of Present Illness Mr. Jerry, is a 58 year old just DC 2 days prior after w/u for SIRS, sepsis was neg, was unsure if infectious for fever at that time. then today, again confused, and high fever returned, T 102.5, w new headache and back pain. distress when I saw him in the ER, present, he was in marked pain and confused, . He is on Revlimid and Decadron. Following Dr. Johnson Past Medical History Cardiovascular: HTN, Hyperlipidemia Pulmonary: No pertinent hx GI: Diverticulosis, GERD, Gastritis Heme/Onc: No pertinent hx Hepatobiliary: No pertinent hx Psych: Anxiety Rheumatologic: No pertinent hx Infectious disease: No pertinent hx Renal/: No pertinent hx Endocrine: No pertinent hx Past Surgical History Past Surgical History: Tonsillectomy Family History Family History: No Significant Social History Smoke: No ALCOHOL: occassional Drugs: None Current Problem List Problem List Problems Medical Problems: (1) Altered mental status Status: Acute Current Medications Current Medications Current Medications Sodium Chloride 1,000 ml @ 1,000 mls/hr 1X ONCE IV Last administered on at 14:40; Start 07/15/18 at 14:00; Stop 07/15/18 at 14:59; Status DC Cefepime HCl 1 gm/ Dextrose 50 ml @ 100 mls/hr 1X STAT IV ; Start 07/15/18 at 13:55; Stop 07/15/18 at 14:24; Status UNV Vancomycin HCl (Vanco Per Pharmacy) 1 each PRN DAILY PRN MC SEE COMMENTS Last administered on 07/15/18at 18:42; Start 07/15/18 at 14:00 Cefepime HCl (Maxipime) 1 gm 1X ONCE IVP Last administered on 07/15/18at 15:47 ; Start 07/15/18 at 14:15; Stop 07/15/18 at 14:18; Status DC Vancomycin HCl 2 gm/Sodium Chloride 500 ml @ 250 mls/hr 1X ONCE IV Last administered on 07/15/18at 15:50; Start 07/15/18 at 14:30; Stop 07/15/18 at 16:29 ; Status DC Acetaminophen (Tylenol) 1,000 mg 1X ONCE PO Last administered on 07/15/18at 14: 40; Start 07/15/18 at 14:15; Stop 07/15/18 at 14:18; Status DC Fentanyl Citrate (Fentanyl 2ml Vial) 50 mcg 1X ONCE IV Last administered on at 15:01; Start 07/15/18 at 15:00; Stop 07/15/18 at 15:01; Status DC Ondansetron HCl (Zofran) 4 mg 1X ONCE IV Last administered on 07/15/18at 15:00 ; Start 07/15/18 at 15:00; Stop 07/15/18 at 15:01; Status DC Ketorolac Tromethamine (Toradol 15mg Vial) 15 mg 1X ONCE IV Last administered on 07/15/18at 15:46; Start 07/15/18 at 15:30; Stop 07/15/18 at 15:36; Status DC Fentanyl Citrate (Fentanyl 2ml Vial) 50 mcg 1X ONCE IV Last administered on at 15:43; Start 07/15/18 at 15:30; Stop 07/15/18 at 15:36; Status DC Sodium Chloride 1,000 ml @ 1,000 mls/hr 1X ONCE IV Last administered on at 16:18; Start 07/15/18 at 15:30; Stop 07/15/18 at 16:29; Status DC Metoclopramide HCl (Reglan Vial) 10 mg 1X ONCE IV Last administered on at 15:44; Start 07/15/18 at 15:30; Stop 07/15/18 at 15:36; Status DC Diphenhydramine HCl (Benadryl) 25 mg 1X ONCE IVP Last administered on at 15:44; Start 07/15/18 at 15:30; Stop 07/15/18 at 15:36; Status DC Lidocaine HCl 20 ml 1X ONCE IJ Last administered on 07/15/18at 17:41; Start at 16:15; Stop 07/15/18 at 16:18; Status DC Lorazepam (Ativan) 1 mg 1X ONCE IV Last administered on 07/15/18at 16:58; Start 07/15/18 at 16:15; Stop 07/15/18 at 16:18; Status DC Lidocaine HCl (Xylocaine-Mpf 2% Vial) 2 ml STK-MED ONCE .ROUTE ; Start 07/15/18 at 16:31; Stop 07/15/18 at 16:33; Status DC Cefepime HCl 2 gm/ Dextrose 100 ml @ 200 mls/hr Q8HRS IV ; Start 07/15/18 at 22 :00; Status UNV Sodium Chloride 1,000 ml @ 125 mls/hr Q8H IV ; Start 07/15/18 at 16:45 Fentanyl Citrate (Fentanyl 2ml Vial) 50 mcg PRN Q2HR PRN IV PAIN Last administered on 07/15/18at 19:19; Start 07/15/18 at 17:00; Stop 07/16/18 at 16:59 Sodium Chloride 1,000 ml @ 125 mls/hr Q8H IV ; Start 07/15/18 at 16:55; Stop 07/16/18 at 16:54 Morphine Sulfate (Morphine Sulfate) 6 mg 1X ONCE IV Last administered on at 17:57; Start 07/15/18 at 17:45; Stop 07/15/18 at 18:05; Status DC Trimethoprim/ Sulfamethoxazole 20 ml/Dextrose 500 ml @ 333.333 mls/hr Q8HRS IV ; Start 07/15/18 at 19:00; Stop 07/15/18 at 19:46; Status DC Acyclovir Sodium 730 mg/Dextrose 264.6 ml @ 264.6 mls/ hr 1X ONCE IV Last administered on 07/15/18at 18:04; Start 07/15/18 at 18:00; Stop 07/15/18 at 18:59 ; Status DC Dextrose 20 ml @ 200 mls/hr Q8HRS IV ; Start 07/15/18 at 19:00; Stop 07/15/18 at 19:46; Status DC Cefepime HCl (Maxipime) 2 gm Q8HRS IVP ; Start 07/15/18 at 22:00 Vancomycin HCl 1.75 gm/Sodium Chloride 500 ml @ 250 mls/hr Q12H IV ; Start 07/16/18 at 04:00 Vancomycin HCl (Vancomycin Trough Level) 1 each 1X ONCE MC ; Start 07/17/18 at 03:30; Stop 07/17/18 at 03:31 Ampicillin Sodium 2 gm/Sodium Chloride 100 ml @ 200 mls/hr Q4HRS IV Last administered on 07/15/18at 20:16; Start 07/15/18 at 20:00 Dexamethasone Sodium Phosphate (Decadron) 8 mg Q8HRS IV ; Start 07/15/18 at 22: 00 Active Scripts Active Levaquin (Levofloxacin) 500 Mg Tablet 500 Mg PO DAILY06 Flomax (Tamsulosin Hcl) 0.4 Mg Cap.er.24h 0.4 Mg PO QHS Reported Revlimid (Lenalidomide) 25 Mg Capsule 25 Mg PO Gabapentin 300 Mg Capsule 300 Mg PO BID Sulfamethoxazole-Tmp Ds Tablet (Sulfamethoxazole/Trimethoprim) 1 Each Tablet 1 Tab PO BID Dexamethasone 4 Mg Tablet 40 Mg PO WEEKLY Acyclovir 800 Mg Tablet 1 Tab PO BID Aspirin 325 Mg Tablet 1 Tab PO DAILY Hyzaar 100-25 Tablet (Losartan/Hydrochlorothiazide) 1 Each Tablet 1 Each PO DAILY Hydrocodone-Apap 5-325 (Hydrocodone Bit/Acetaminophen) 1 Each Tablet 1 Tab PO PRN Q6HRS PRN Escitalopram Oxalate 10 Mg Tablet 10 Mg PO DAILY Flonase Allergy Relief (Fluticasone Propionate) 9.9 Ml [place].susp 2 Sprays NS DAILY Meloxicam 7.5 Mg Tablet 7.5 Mg PO DAILY Prilosec Otc (Omeprazole Magnesium) 20 Mg Tablet.dr 40 Mg PO DAILY Allopurinol 300 Mg Tablet 300 Mg PO DAILY Allergies Allergies: Coded Allergies: amoxicillin (Verified Allergy, Intermediate, 07/06/18) Penicillins (Verified Adverse Reaction, Intermediate, Nausea and Vomiting , 07/06/18) ROS Review of System back pain, leg pain, headache, mylagia unable to otherwise complete further due to distress and confusion Physical Exam General: severe distress HEENT: PERRLA, EOMI Lungs: Other (tachypnea) Heart: S1S2, no murmurs Abdomen: Normal bowel sounds, Soft Extremities: No cyanosis, No edema Skin: No rashes Neuro: Normal tone, Sensation intact, Other (confused, not talking coherently) Psych/Mental Status: Other (confused, agitated) Vitals Vitals Vital Signs Date Time Temp Pulse Resp B/P (MAP) Pulse Ox O2 Delivery O2 Flow Rate FiO2 07/15/18 20:00 Room Air 07/15/18 19:19 16 07/15/18 17:51 114 193/98 (129) 99 07/15/18 16:22 102.1 102.1 Labs Labs Laboratory Tests Test 07/15/18 14:23 07/15/18 15:00 07/15/18 15:10 07/15/18 17:28 Urine Collection Type Unknown Urine Color Yellow Urine Clarity Clear Urine pH 6.5 Urine Specific [place] 1.015 Urine Protein Negative mg/dL (NEG-TRACE) Urine Glucose (UA) Negative mg/dL (NEG) Urine Ketones (Stick) Negative mg/dL (NEG) Urine Blood Negative (NEG) Urine Nitrite Negative (NEG) Urine Bilirubin Negative (NEG) Urine Urobilinogen Dipstick 0.2 mg/dL (0.2 mg/dL) Urine Leukocyte Esterase Negative (NEG) Urine RBC 0 /HPF (0-2) Urine WBC 0 /HPF (0-4) Urine Transitional Epithelial Cells Few /LPF Urine Bacteria 0 /HPF (0-FEW) Urine Hyaline Casts Moderate /HPF Urine Mucus Mod /LPF Influenza Type A Antigen Negative (NEGATIVE) Influenza Type B Antigen Negative (NEGATIVE) White Blood Count 11.0 x10^3/uL (4.0-11.0) Red Blood Count 2.49 x10^6/uL (4.30-5.70) Hemoglobin 8.6 g/dL (13.0-17.5) Hematocrit 24.2 % (39.0-53.0) Mean Corpuscular Volume 97 fL (79-100) Mean Corpuscular Hemoglobin 34 pg (25-35) Mean Corpuscular Hemoglobin Concent 35 g/dL (31-37) Red Cell Distribution Width 21.6 % (11.5-14.5) Platelet Count 197 x10^3/uL (140-400) Neutrophils (%) (Auto) 94 % (31-73) Lymphocytes (%) (Auto) 2 % (24-48) Monocytes (%) (Auto) 3 % (0-9) Eosinophils (%) (Auto) 0 % (0-3) Basophils (%) (Auto) 0 % (0-3) Neutrophils # (Auto) 10.3 x10^3uL (1.8-7.7) Lymphocytes # (Auto) 0.2 x10^3/uL (1.0-4.8) Monocytes # (Auto) 0.3 x10^3/uL (0.0-1.1) Eosinophils # (Auto) 0.0 x10^3/uL (0.0-0.7) Basophils # (Auto) 0.0 x10^3/uL (0.0-0.2) Segmented Neutrophils % 92 % (35-66) Band Neutrophils % 7 % (0-9) Lymphocytes % 1 % (24-48) Platelet Estimate Adequate (ADEQUATE) Anisocytosis Mod Macrocytosis Slight Prothrombin Time 14.0 SEC (11.7-14.0) Prothromb Time International Ratio 1.1 (0.8-1.1) Sodium Level 132 mmol/L (136-145) Potassium Level 3.5 mmol/L (3.5-5.1) Chloride Level 91 mmol/L (98-107) Carbon Dioxide Level 24 mmol/L (21-32) Anion Gap 17 (6-14) Blood Urea Nitrogen 14 mg/dL (8-26) Creatinine 1.0 mg/dL (0.7-1.3) Estimated GFR (Cockcroft-Gault) 77.0 BUN/Creatinine Ratio 14 (6-20) Glucose Level 118 mg/dL (70-99) Lactic Acid Level 2.7 mmol/L (0.4-2.0) Calcium Level 8.6 mg/dL (8.5-10.1) Total Bilirubin 0.7 mg/dL (0.2-1.0) Aspartate Amino Transf (AST/SGOT) 26 U/L (15-37) Alanine Aminotransferase (ALT/SGPT) 23 U/L (16-63) Alkaline Phosphatase 95 U/L (46-116) Troponin I Quantitative < 0.017 ng/mL (0.000-0.055) Total Protein 8.8 g/dL (6.4-8.2) Albumin 3.6 g/dL (3.4-5.0) Albumin/Globulin Ratio 0.7 (1.0-1.7) Lipase 167 U/L (73-393) Procalcitonin 0.23 ng/mL (0.00-0.10) CSF Color Colorless CSF Clarity Cloudy CSF WBC 4068 CSF RBC 20 CSF Mononuclear WBCs % 2 % CSF Polynuclear WBCs (%) 98 % CSF Glucose 45 mg/dL (37-70) CSF Total Protein 318.8 mg/dL (15.0-45.0) Test 07/15/18 20:15 Lactic Acid Level 2.5 mmol/L (0.4-2.0) Laboratory Tests Test 07/15/18 14:23 07/15/18 15:00 07/15/18 15:10 07/15/18 17:28 Urine Collection Type Unknown Urine Color Yellow Urine Clarity Clear Urine pH 6.5 Urine Specific [place] 1.015 Urine Protein Negative mg/dL (NEG-TRACE) Urine Glucose (UA) Negative mg/dL (NEG) Urine Ketones (Stick) Negative mg/dL (NEG) Urine Blood Negative (NEG) Urine Nitrite Negative (NEG) Urine Bilirubin Negative (NEG) Urine Urobilinogen Dipstick 0.2 mg/dL (0.2 mg/dL) Urine Leukocyte Esterase Negative (NEG) Urine RBC 0 /HPF (0-2) Urine WBC 0 /HPF (0-4) Urine Transitional Epithelial Cells Few /LPF Urine Bacteria 0 /HPF (0-FEW) Urine Hyaline Casts Moderate /HPF Urine Mucus Mod /LPF Influenza Type A Antigen Negative (NEGATIVE) Influenza Type B Antigen Negative (NEGATIVE) White Blood Count 11.0 x10^3/uL (4.0-11.0) Red Blood Count 2.49 x10^6/uL (4.30-5.70) Hemoglobin 8.6 g/dL (13.0-17.5) Hematocrit 24.2 % (39.0-53.0) Mean Corpuscular Volume 97 fL (79-100) Mean Corpuscular Hemoglobin 34 pg (25-35) Mean Corpuscular Hemoglobin Concent 35 g/dL (31-37) Red Cell Distribution Width 21.6 % (11.5-14.5) Platelet Count 197 x10^3/uL (140-400) Neutrophils (%) (Auto) 94 % (31-73) Lymphocytes (%) (Auto) 2 % (24-48) Monocytes (%) (Auto) 3 % (0-9) Eosinophils (%) (Auto) 0 % (0-3) Basophils (%) (Auto) 0 % (0-3) Neutrophils # (Auto) 10.3 x10^3uL (1.8-7.7) Lymphocytes # (Auto) 0.2 x10^3/uL (1.0-4.8) Monocytes # (Auto) 0.3 x10^3/uL (0.0-1.1) Eosinophils # (Auto) 0.0 x10^3/uL (0.0-0.7) Basophils # (Auto) 0.0 x10^3/uL (0.0-0.2) Segmented Neutrophils % 92 % (35-66) Band Neutrophils % 7 % (0-9) Lymphocytes % 1 % (24-48) Platelet Estimate Adequate (ADEQUATE) Anisocytosis Mod Macrocytosis Slight Prothrombin Time 14.0 SEC (11.7-14.0) Prothromb Time International Ratio 1.1 (0.8-1.1) Sodium Level 132 mmol/L (136-145) Potassium Level 3.5 mmol/L (3.5-5.1) Chloride Level 91 mmol/L (98-107) Carbon Dioxide Level 24 mmol/L (21-32) Anion Gap 17 (6-14) Blood Urea Nitrogen 14 mg/dL (8-26) Creatinine 1.0 mg/dL (0.7-1.3) Estimated GFR (Cockcroft-Gault) 77.0 BUN/Creatinine Ratio 14 (6-20) Glucose Level 118 mg/dL (70-99) Lactic Acid Level 2.7 mmol/L (0.4-2.0) Calcium Level 8.6 mg/dL (8.5-10.1) Total Bilirubin 0.7 mg/dL (0.2-1.0) Aspartate Amino Transf (AST/SGOT) 26 U/L (15-37) Alanine Aminotransferase (ALT/SGPT) 23 U/L (16-63) Alkaline Phosphatase 95 U/L (46-116) Troponin I Quantitative < 0.017 ng/mL (0.000-0.055) Total Protein 8.8 g/dL (6.4-8.2) Albumin 3.6 g/dL (3.4-5.0) Albumin/Globulin Ratio 0.7 (1.0-1.7) Lipase 167 U/L (73-393) Procalcitonin 0.23 ng/mL (0.00-0.10) CSF Color Colorless CSF Clarity Cloudy CSF WBC 4068 CSF RBC 20 CSF Mononuclear WBCs % 2 % CSF Polynuclear WBCs (%) 98 % CSF Glucose 45 mg/dL (37-70) CSF Total Protein 318.8 mg/dL (15.0-45.0) Test 07/15/18 20:15 Lactic Acid Level 2.5 mmol/L (0.4-2.0) VTE Prophylaxis Ordered VTE Prophylaxis Devices: No VTE Pharmacological Prophylaxi: Yes Assessment/Plan Assessment/Plan severe sepsis meningitis, bacterial, ID consulted, mult abx, IV steroids, admit to ICU acute encephalopathy hyponatremia mult myeloma, w.chronic anemia Heme following ANAYELI FLOWERS MD Jul 15, 2018 21:50
[2018-07-15] MEDS ORDERED: CEFEPIME HCL 2 GM in IV DEXTROSE 5% 100ML 100 ML IV SCH (22:00)
[2018-07-15] MEDS: CEFEPIME HCL IV Push 2 GM VIAL. IVP SCH (22:09)
[2018-07-15] MEDS: DEXAMETHASONE SOD PHOS 4 MG/ML VIAL IV SCH (22:09)
[2018-07-15] MEDS ORDERED: LABETALOL 20 MG/4 ML DISP.SYRIN. IVP PRN (22:15)
[2018-07-16] VITALS (15 sets, daily range): BP systolic 108–161; BP diastolic 52–83
[2018-07-16] MEDS: AMPICILLIN SODIUM 2 GM in IV NORMAL SALINE 100ML 100 ML IV SCH ×6 (00:22→20:17)
[2018-07-16] MEDS: IV NORMAL SALINE 1000ML BAG 1,000 ML IV SCH ×4 (00:45→17:09)
[2018-07-16] MEDS: fentaNYL PF VIAL 100 MCG/2 ML VIAL IV PRN (01:57)
[2018-07-16] MEDS: VANCOMYCIN 1.75 GM in IV NORMAL SALINE 500ML BAG 500 ML IV SCH ×2 (03:54→17:09)
[2018-07-16 05:26] LABS: CREATININE 0.8 mg/dL (0.7-1.3); GFR 99.6
[2018-07-16 05:45] LABS: ALBUMIN 2.9 g/dL (3.4-5.0); ALBUMIN/GLOBULIN RATIO 0.6 (1.0-1.7); CALCIUM 7.9 mg/dL (8.5-10.1); CREATININE 0.8 mg/dL (0.7-1.3); GFR 99.6; POTASSIUM 3.9 mmol/L (3.5-5.1); TOTAL BILIRUBIN 1.3 mg/dL (0.2-1.0); TOTAL PROTEIN 7.8 g/dL (6.4-8.2)
[2018-07-16] MEDS: DEXAMETHASONE SOD PHOS 4 MG/ML VIAL IV SCH ×3 (06:18→22:36)
[2018-07-16] MEDS: CEFEPIME HCL IV Push 2 GM VIAL. IVP SCH ×3 (06:18→22:35)
[2018-07-16 06:56] LABS: BASO % 0 % (0-3); EOS % 0 % (0-3); HEMATOCRIT 25.6 % (39.0-53.0); HEMOGLOBIN 9.2 g/dL (13.0-17.5); LYMPH # 0.4 x10^3/uL (1.0-4.8); LYMPH % 5 % (24-48); MEAN CORPUSCULAR HEMOGLOBIN 35 pg (25-35); MEAN CORPUSCULAR HGB CONC 36 g/dL (31-37); MEAN CORPUSCULAR VOLUME 97 fL (79-100); MONO # 0.2 x10^3/uL (0.0-1.1); MONO % 2 % (0-9); NEUT # 8.3 x10^3uL (1.8-7.7); NEUT % 93 % (31-73); PLATELET COUNT 113 x10^3/uL (140-400); RED BLOOD COUNT 2.65 x10^6/uL (4.30-5.70); RED CELL DISTRIBUTION WIDTH 21.8 % (11.5-14.5); WHITE BLOOD COUNT 8.9 x10^3/uL (4.0-11.0)
--- NOTE | 2018-07-16 08:24 | PDOC ---
Infectious Disease Note Vital Sign Vital Signs Vital Signs Date Time Temp Pulse Resp B/P (MAP) Pulse Ox O2 Delivery O2 Flow Rate FiO2 07/16/18 07:00 99.6 90 20 140/70 (93) 98 Room Air 99.6 07/15/18 22:39 2.0 Labs Lab Laboratory Tests Test 07/15/18 14:23 07/15/18 15:00 07/15/18 15:10 07/15/18 17:28 Urine Collection Type Unknown Urine Color Yellow Urine Clarity Clear Urine pH 6.5 Urine Specific [place] 1.015 Urine Protein Negative mg/dL (NEG-TRACE) Urine Glucose (UA) Negative mg/dL (NEG) Urine Ketones (Stick) Negative mg/dL (NEG) Urine Blood Negative (NEG) Urine Nitrite Negative (NEG) Urine Bilirubin Negative (NEG) Urine Urobilinogen Dipstick 0.2 mg/dL (0.2 mg/dL) Urine Leukocyte Esterase Negative (NEG) Urine RBC 0 /HPF (0-2) Urine WBC 0 /HPF (0-4) Urine Transitional Epithelial Cells Few /LPF Urine Bacteria 0 /HPF (0-FEW) Urine Hyaline Casts Moderate /HPF Urine Mucus Mod /LPF Influenza Type A Antigen Negative (NEGATIVE) Influenza Type B Antigen Negative (NEGATIVE) White Blood Count 11.0 x10^3/uL (4.0-11.0) Red Blood Count 2.49 x10^6/uL (4.30-5.70) Hemoglobin 8.6 g/dL (13.0-17.5) Hematocrit 24.2 % (39.0-53.0) Mean Corpuscular Volume 97 fL (79-100) Mean Corpuscular Hemoglobin 34 pg (25-35) Mean Corpuscular Hemoglobin Concent 35 g/dL (31-37) Red Cell Distribution Width 21.6 % (11.5-14.5) Platelet Count 197 x10^3/uL (140-400) Neutrophils (%) (Auto) 94 % (31-73) Lymphocytes (%) (Auto) 2 % (24-48) Monocytes (%) (Auto) 3 % (0-9) Eosinophils (%) (Auto) 0 % (0-3) Basophils (%) (Auto) 0 % (0-3) Neutrophils # (Auto) 10.3 x10^3uL (1.8-7.7) Lymphocytes # (Auto) 0.2 x10^3/uL (1.0-4.8) Monocytes # (Auto) 0.3 x10^3/uL (0.0-1.1) Eosinophils # (Auto) 0.0 x10^3/uL (0.0-0.7) Basophils # (Auto) 0.0 x10^3/uL (0.0-0.2) Segmented Neutrophils % 92 % (35-66) Band Neutrophils % 7 % (0-9) Lymphocytes % 1 % (24-48) Platelet Estimate Adequate (ADEQUATE) Anisocytosis Mod Macrocytosis Slight Prothrombin Time 14.0 SEC (11.7-14.0) Prothromb Time International Ratio 1.1 (0.8-1.1) Sodium Level 132 mmol/L (136-145) Potassium Level 3.5 mmol/L (3.5-5.1) Chloride Level 91 mmol/L (98-107) Carbon Dioxide Level 24 mmol/L (21-32) Anion Gap 17 (6-14) Blood Urea Nitrogen 14 mg/dL (8-26) Creatinine 1.0 mg/dL (0.7-1.3) Estimated GFR (Cockcroft-Gault) 77.0 BUN/Creatinine Ratio 14 (6-20) Glucose Level 118 mg/dL (70-99) Lactic Acid Level 2.7 mmol/L (0.4-2.0) Calcium Level 8.6 mg/dL (8.5-10.1) Total Bilirubin 0.7 mg/dL (0.2-1.0) Aspartate Amino Transf (AST/SGOT) 26 U/L (15-37) Alanine Aminotransferase (ALT/SGPT) 23 U/L (16-63) Alkaline Phosphatase 95 U/L (46-116) Troponin I Quantitative < 0.017 ng/mL (0.000-0.055) Total Protein 8.8 g/dL (6.4-8.2) Albumin 3.6 g/dL (3.4-5.0) Albumin/Globulin Ratio 0.7 (1.0-1.7) Lipase 167 U/L (73-393) Procalcitonin 0.23 ng/mL (0.00-0.10) CSF Color Colorless CSF Clarity Cloudy CSF WBC 4068 CSF RBC 20 CSF Mononuclear WBCs % 2 % CSF Polynuclear WBCs (%) 98 % CSF Glucose 45 mg/dL (37-70) CSF Total Protein 318.8 mg/dL (15.0-45.0) Test 07/15/18 20:15 07/16/18 03:30 07/16/18 04:30 07/16/18 06:30 Lactic Acid Level 2.5 mmol/L (0.4-2.0) Sodium Level 127 mmol/L (136-145) Potassium Level 3.9 mmol/L (3.5-5.1) Chloride Level 92 mmol/L (98-107) Carbon Dioxide Level 25 mmol/L (21-32) Anion Gap 10 (6-14) Blood Urea Nitrogen 10 mg/dL (8-26) Creatinine 0.8 mg/dL (0.7-1.3) 0.8 mg/dL (0.7-1.3) Estimated GFR (Cockcroft-Gault) 99.6 99.6 BUN/Creatinine Ratio 13 (6-20) Glucose Level 148 mg/dL (70-99) Calcium Level 7.9 mg/dL (8.5-10.1) Total Bilirubin 1.3 mg/dL (0.2-1.0) Aspartate Amino Transf (AST/SGOT) 22 U/L (15-37) Alanine Aminotransferase (ALT/SGPT) 19 U/L (16-63) Alkaline Phosphatase 75 U/L (46-116) Total Protein 7.8 g/dL (6.4-8.2) Albumin 2.9 g/dL (3.4-5.0) Albumin/Globulin Ratio 0.6 (1.0-1.7) White Blood Count 8.9 x10^3/uL (4.0-11.0) Red Blood Count 2.65 x10^6/uL (4.30-5.70) Hemoglobin 9.2 g/dL (13.0-17.5) Hematocrit 25.6 % (39.0-53.0) Mean Corpuscular Volume 97 fL (79-100) Mean Corpuscular Hemoglobin 35 pg (25-35) Mean Corpuscular Hemoglobin Concent 36 g/dL (31-37) Red Cell Distribution Width 21.8 % (11.5-14.5) Platelet Count 113 x10^3/uL (140-400) Neutrophils (%) (Auto) 93 % (31-73) Lymphocytes (%) (Auto) 5 % (24-48) Monocytes (%) (Auto) 2 % (0-9) Eosinophils (%) (Auto) 0 % (0-3) Basophils (%) (Auto) 0 % (0-3) Neutrophils # (Auto) 8.3 x10^3uL (1.8-7.7) Lymphocytes # (Auto) 0.4 x10^3/uL (1.0-4.8) Monocytes # (Auto) 0.2 x10^3/uL (0.0-1.1) Eosinophils # (Auto) 0.0 x10^3/uL (0.0-0.7) Basophils # (Auto) 0.0 x10^3/uL (0.0-0.2) Micro Microbiology 07/15/18 CSF Gram Stain - Final, Complete Objective Assessment Fever Encephalopathy CSF pleocytosis c/w meningitis 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
[2018-07-16] MEDS: ASPIRIN 325 MG TABLET PO SCH (08:54)
[2018-07-16] MEDS: CITALOPRAM 20 MG TABLET. PO SCH (08:54)
[2018-07-16] MEDS: ALLOPURINOL 300 MG TABLET. PO SCH (08:54)
[2018-07-16] MEDS: GABAPENTIN 300 MG CAPSULE. PO SCH ×2 (08:54→20:18)
[2018-07-16] MEDS: ACYCLOVIR 200 MG CAPSULE. PO SCH ×2 (08:55→20:18)
[2018-07-16] MEDS: PANTOPRAZOLE 40 MG TABLET.DR. PO SCH (08:56)
[2018-07-16] MEDS: VANCOMYCIN PER PHARMACY MC PRN (11:11)
[2018-07-16] MEDS ORDERED: HYDROcodone/APAP 5/325MG 1 TAB TABLET PO PRN (12:15)
[2018-07-16] MEDS ORDERED: DOCUSATE SODIUM 100 MG CAPSULE. PO PRN (12:30)
[2018-07-16] MEDS ORDERED: MORPHINE SULFATE 2 MG/ML VIAL. IV PRN (12:30)
[2018-07-16] MEDS ORDERED: traMADol 50 MG TABLET PO PRN (12:30)
[2018-07-16] MEDS ORDERED: ONDANSETRON PF 4 MG/2 ML VIAL. IV PRN (12:30)
--- NOTE | 2018-07-16 12:34 | PDOC ---
PROGRESS NOTES Chief Complaint Chief Complaint severe sepsis meningitis, bacterial acute encephalopathy hyponatremiA HTN mult myeloma, w.chronic anemia ON CHEMO thrombocytopenia PLAN: FU WITH ID ON amp, cefepime, vanco, steroid ivf regular diet htn meds held, consider resume tmr dvt ppx tmr if PLT ok gi ppx myeloma chemo held ok transfer out of ICU isolation fu LP final result allergy to PCN tho History of Present Illness History of Present Illness ROS: no chills, sob or chest pain STILL Headache, better still fever, 101 Na lower 127 +LP Vitals Vitals Vital Signs Date Time Temp Pulse Resp B/P (MAP) Pulse Ox O2 Delivery O2 Flow Rate FiO2 07/16/18 11:00 89 20 133/52 (79) 98 Room Air 07/16/18 07:00 99.6 99.6 07/15/18 22:39 2.0 Physical Exam General: Alert, Oriented X3, Cooperative, severe distress Heart: Regular rate, Normal S1, Normal S2 Lungs: Clear Abdomen: Normal bowel sounds, Soft Extremities: No cyanosis, No edema Skin: No rashes Labs LABS Laboratory Tests Test 07/15/18 14:23 07/15/18 15:00 07/15/18 15:10 07/15/18 17:28 Urine Collection Type Unknown Urine Color Yellow Urine Clarity Clear Urine pH 6.5 Urine Specific [place] 1.015 Urine Protein Negative mg/dL (NEG-TRACE) Urine Glucose (UA) Negative mg/dL (NEG) Urine Ketones (Stick) Negative mg/dL (NEG) Urine Blood Negative (NEG) Urine Nitrite Negative (NEG) Urine Bilirubin Negative (NEG) Urine Urobilinogen Dipstick 0.2 mg/dL (0.2 mg/dL) Urine Leukocyte Esterase Negative (NEG) Urine RBC 0 /HPF (0-2) Urine WBC 0 /HPF (0-4) Urine Transitional Epithelial Cells Few /LPF Urine Bacteria 0 /HPF (0-FEW) Urine Hyaline Casts Moderate /HPF Urine Mucus Mod /LPF Influenza Type A Antigen Negative (NEGATIVE) Influenza Type B Antigen Negative (NEGATIVE) White Blood Count 11.0 x10^3/uL (4.0-11.0) Red Blood Count 2.49 x10^6/uL (4.30-5.70) Hemoglobin 8.6 g/dL (13.0-17.5) Hematocrit 24.2 % (39.0-53.0) Mean Corpuscular Volume 97 fL (79-100) Mean Corpuscular Hemoglobin 34 pg (25-35) Mean Corpuscular Hemoglobin Concent 35 g/dL (31-37) Red Cell Distribution Width 21.6 % (11.5-14.5) Platelet Count 197 x10^3/uL (140-400) Neutrophils (%) (Auto) 94 % (31-73) Lymphocytes (%) (Auto) 2 % (24-48) Monocytes (%) (Auto) 3 % (0-9) Eosinophils (%) (Auto) 0 % (0-3) Basophils (%) (Auto) 0 % (0-3) Neutrophils # (Auto) 10.3 x10^3uL (1.8-7.7) Lymphocytes # (Auto) 0.2 x10^3/uL (1.0-4.8) Monocytes # (Auto) 0.3 x10^3/uL (0.0-1.1) Eosinophils # (Auto) 0.0 x10^3/uL (0.0-0.7) Basophils # (Auto) 0.0 x10^3/uL (0.0-0.2) Segmented Neutrophils % 92 % (35-66) Band Neutrophils % 7 % (0-9) Lymphocytes % 1 % (24-48) Platelet Estimate Adequate (ADEQUATE) Anisocytosis Mod Macrocytosis Slight Prothrombin Time 14.0 SEC (11.7-14.0) Prothromb Time International Ratio 1.1 (0.8-1.1) Sodium Level 132 mmol/L (136-145) Potassium Level 3.5 mmol/L (3.5-5.1) Chloride Level 91 mmol/L (98-107) Carbon Dioxide Level 24 mmol/L (21-32) Anion Gap 17 (6-14) Blood Urea Nitrogen 14 mg/dL (8-26) Creatinine 1.0 mg/dL (0.7-1.3) Estimated GFR (Cockcroft-Gault) 77.0 BUN/Creatinine Ratio 14 (6-20) Glucose Level 118 mg/dL (70-99) Lactic Acid Level 2.7 mmol/L (0.4-2.0) Calcium Level 8.6 mg/dL (8.5-10.1) Total Bilirubin 0.7 mg/dL (0.2-1.0) Aspartate Amino Transf (AST/SGOT) 26 U/L (15-37) Alanine Aminotransferase (ALT/SGPT) 23 U/L (16-63) Alkaline Phosphatase 95 U/L (46-116) Troponin I Quantitative < 0.017 ng/mL (0.000-0.055) Total Protein 8.8 g/dL (6.4-8.2) Albumin 3.6 g/dL (3.4-5.0) Albumin/Globulin Ratio 0.7 (1.0-1.7) Lipase 167 U/L (73-393) Procalcitonin 0.23 ng/mL (0.00-0.10) CSF Color Colorless CSF Clarity Cloudy CSF WBC 4068 CSF RBC 20 CSF Mononuclear WBCs % 2 % CSF Polynuclear WBCs (%) 98 % CSF Glucose 45 mg/dL (37-70) CSF Total Protein 318.8 mg/dL (15.0-45.0) Test 07/15/18 20:15 07/16/18 03:30 07/16/18 04:30 07/16/18 06:30 Lactic Acid Level 2.5 mmol/L (0.4-2.0) Sodium Level 127 mmol/L (136-145) Potassium Level 3.9 mmol/L (3.5-5.1) Chloride Level 92 mmol/L (98-107) Carbon Dioxide Level 25 mmol/L (21-32) Anion Gap 10 (6-14) Blood Urea Nitrogen 10 mg/dL (8-26) Creatinine 0.8 mg/dL (0.7-1.3) 0.8 mg/dL (0.7-1.3) Estimated GFR (Cockcroft-Gault) 99.6 99.6 BUN/Creatinine Ratio 13 (6-20) Glucose Level 148 mg/dL (70-99) Calcium Level 7.9 mg/dL (8.5-10.1) Total Bilirubin 1.3 mg/dL (0.2-1.0) Aspartate Amino Transf (AST/SGOT) 22 U/L (15-37) Alanine Aminotransferase (ALT/SGPT) 19 U/L (16-63) Alkaline Phosphatase 75 U/L (46-116) Total Protein 7.8 g/dL (6.4-8.2) Albumin 2.9 g/dL (3.4-5.0) Albumin/Globulin Ratio 0.6 (1.0-1.7) White Blood Count 8.9 x10^3/uL (4.0-11.0) Red Blood Count 2.65 x10^6/uL (4.30-5.70) Hemoglobin 9.2 g/dL (13.0-17.5) Hematocrit 25.6 % (39.0-53.0) Mean Corpuscular Volume 97 fL (79-100) Mean Corpuscular Hemoglobin 35 pg (25-35) Mean Corpuscular Hemoglobin Concent 36 g/dL (31-37) Red Cell Distribution Width 21.8 % (11.5-14.5) Platelet Count 113 x10^3/uL (140-400) Neutrophils (%) (Auto) 93 % (31-73) Lymphocytes (%) (Auto) 5 % (24-48) Monocytes (%) (Auto) 2 % (0-9) Eosinophils (%) (Auto) 0 % (0-3) Basophils (%) (Auto) 0 % (0-3) Neutrophils # (Auto) 8.3 x10^3uL (1.8-7.7) Lymphocytes # (Auto) 0.4 x10^3/uL (1.0-4.8) Monocytes # (Auto) 0.2 x10^3/uL (0.0-1.1) Eosinophils # (Auto) 0.0 x10^3/uL (0.0-0.7) Basophils # (Auto) 0.0 x10^3/uL (0.0-0.2) Assessment and Plan Assessmemt and Plan Problems Medical Problems: (1) Altered mental status Status: Acute Comment Review of Relevant I have reviewed the following items cristina (where applicable) has been applied. Labs Laboratory Tests Test 07/15/18 14:23 07/15/18 15:00 07/15/18 15:10 07/15/18 17:28 Urine Collection Type Unknown Urine Color Yellow Urine Clarity Clear Urine pH 6.5 Urine Specific [place] 1.015 Urine Protein Negative mg/dL (NEG-TRACE) Urine Glucose (UA) Negative mg/dL (NEG) Urine Ketones (Stick) Negative mg/dL (NEG) Urine Blood Negative (NEG) Urine Nitrite Negative (NEG) Urine Bilirubin Negative (NEG) Urine Urobilinogen Dipstick 0.2 mg/dL (0.2 mg/dL) Urine Leukocyte Esterase Negative (NEG) Urine RBC 0 /HPF (0-2) Urine WBC 0 /HPF (0-4) Urine Transitional Epithelial Cells Few /LPF Urine Bacteria 0 /HPF (0-FEW) Urine Hyaline Casts Moderate /HPF Urine Mucus Mod /LPF Influenza Type A Antigen Negative (NEGATIVE) Influenza Type B Antigen Negative (NEGATIVE) White Blood Count 11.0 x10^3/uL (4.0-11.0) Red Blood Count 2.49 x10^6/uL (4.30-5.70) Hemoglobin 8.6 g/dL (13.0-17.5) Hematocrit 24.2 % (39.0-53.0) Mean Corpuscular Volume 97 fL (79-100) Mean Corpuscular Hemoglobin 34 pg (25-35) Mean Corpuscular Hemoglobin Concent 35 g/dL (31-37) Red Cell Distribution Width 21.6 % (11.5-14.5) Platelet Count 197 x10^3/uL (140-400) Neutrophils (%) (Auto) 94 % (31-73) Lymphocytes (%) (Auto) 2 % (24-48) Monocytes (%) (Auto) 3 % (0-9) Eosinophils (%) (Auto) 0 % (0-3) Basophils (%) (Auto) 0 % (0-3) Neutrophils # (Auto) 10.3 x10^3uL (1.8-7.7) Lymphocytes # (Auto) 0.2 x10^3/uL (1.0-4.8) Monocytes # (Auto) 0.3 x10^3/uL (0.0-1.1) Eosinophils # (Auto) 0.0 x10^3/uL (0.0-0.7) Basophils # (Auto) 0.0 x10^3/uL (0.0-0.2) Segmented Neutrophils % 92 % (35-66) Band Neutrophils % 7 % (0-9) Lymphocytes % 1 % (24-48) Platelet Estimate Adequate (ADEQUATE) Anisocytosis Mod Macrocytosis Slight Prothrombin Time 14.0 SEC (11.7-14.0) Prothromb Time International Ratio 1.1 (0.8-1.1) Sodium Level 132 mmol/L (136-145) Potassium Level 3.5 mmol/L (3.5-5.1) Chloride Level 91 mmol/L (98-107) Carbon Dioxide Level 24 mmol/L (21-32) Anion Gap 17 (6-14) Blood Urea Nitrogen 14 mg/dL (8-26) Creatinine 1.0 mg/dL (0.7-1.3) Estimated GFR (Cockcroft-Gault) 77.0 BUN/Creatinine Ratio 14 (6-20) Glucose Level 118 mg/dL (70-99) Lactic Acid Level 2.7 mmol/L (0.4-2.0) Calcium Level 8.6 mg/dL (8.5-10.1) Total Bilirubin 0.7 mg/dL (0.2-1.0) Aspartate Amino Transf (AST/SGOT) 26 U/L (15-37) Alanine Aminotransferase (ALT/SGPT) 23 U/L (16-63) Alkaline Phosphatase 95 U/L (46-116) Troponin I Quantitative < 0.017 ng/mL (0.000-0.055) Total Protein 8.8 g/dL (6.4-8.2) Albumin 3.6 g/dL (3.4-5.0) Albumin/Globulin Ratio 0.7 (1.0-1.7) Lipase 167 U/L (73-393) Procalcitonin 0.23 ng/mL (0.00-0.10) CSF Color Colorless CSF Clarity Cloudy CSF WBC 4068 CSF RBC 20 CSF Mononuclear WBCs % 2 % CSF Polynuclear WBCs (%) 98 % CSF Glucose 45 mg/dL (37-70) CSF Total Protein 318.8 mg/dL (15.0-45.0) Test 07/15/18 20:15 07/16/18 03:30 07/16/18 04:30 07/16/18 06:30 Lactic Acid Level 2.5 mmol/L (0.4-2.0) Sodium Level 127 mmol/L (136-145) Potassium Level 3.9 mmol/L (3.5-5.1) Chloride Level 92 mmol/L (98-107) Carbon Dioxide Level 25 mmol/L (21-32) Anion Gap 10 (6-14) Blood Urea Nitrogen 10 mg/dL (8-26) Creatinine 0.8 mg/dL (0.7-1.3) 0.8 mg/dL (0.7-1.3) Estimated GFR (Cockcroft-Gault) 99.6 99.6 BUN/Creatinine Ratio 13 (6-20) Glucose Level 148 mg/dL (70-99) Calcium Level 7.9 mg/dL (8.5-10.1) Total Bilirubin 1.3 mg/dL (0.2-1.0) Aspartate Amino Transf (AST/SGOT) 22 U/L (15-37) Alanine Aminotransferase (ALT/SGPT) 19 U/L (16-63) Alkaline Phosphatase 75 U/L (46-116) Total Protein 7.8 g/dL (6.4-8.2) Albumin 2.9 g/dL (3.4-5.0) Albumin/Globulin Ratio 0.6 (1.0-1.7) White Blood Count 8.9 x10^3/uL (4.0-11.0) Red Blood Count 2.65 x10^6/uL (4.30-5.70) Hemoglobin 9.2 g/dL (13.0-17.5) Hematocrit 25.6 % (39.0-53.0) Mean Corpuscular Volume 97 fL (79-100) Mean Corpuscular Hemoglobin 35 pg (25-35) Mean Corpuscular Hemoglobin Concent 36 g/dL (31-37) Red Cell Distribution Width 21.8 % (11.5-14.5) Platelet Count 113 x10^3/uL (140-400) Neutrophils (%) (Auto) 93 % (31-73) Lymphocytes (%) (Auto) 5 % (24-48) Monocytes (%) (Auto) 2 % (0-9) Eosinophils (%) (Auto) 0 % (0-3) Basophils (%) (Auto) 0 % (0-3) Neutrophils # (Auto) 8.3 x10^3uL (1.8-7.7) Lymphocytes # (Auto) 0.4 x10^3/uL (1.0-4.8) Monocytes # (Auto) 0.2 x10^3/uL (0.0-1.1) Eosinophils # (Auto) 0.0 x10^3/uL (0.0-0.7) Basophils # (Auto) 0.0 x10^3/uL (0.0-0.2) Laboratory Tests Test 07/15/18 14:23 07/15/18 15:00 07/15/18 15:10 07/15/18 17:28 Urine Collection Type Unknown Urine Color Yellow Urine Clarity Clear Urine pH 6.5 Urine Specific [place] 1.015 Urine Protein Negative mg/dL (NEG-TRACE) Urine Glucose (UA) Negative mg/dL (NEG) Urine Ketones (Stick) Negative mg/dL (NEG) Urine Blood Negative (NEG) Urine Nitrite Negative (NEG) Urine Bilirubin Negative (NEG) Urine Urobilinogen Dipstick 0.2 mg/dL (0.2 mg/dL) Urine Leukocyte Esterase Negative (NEG) Urine RBC 0 /HPF (0-2) Urine WBC 0 /HPF (0-4) Urine Transitional Epithelial Cells Few /LPF Urine Bacteria 0 /HPF (0-FEW) Urine Hyaline Casts Moderate /HPF Urine Mucus Mod /LPF Influenza Type A Antigen Negative (NEGATIVE) Influenza Type B Antigen Negative (NEGATIVE) White Blood Count 11.0 x10^3/uL (4.0-11.0) Red Blood Count 2.49 x10^6/uL (4.30-5.70) Hemoglobin 8.6 g/dL (13.0-17.5) Hematocrit 24.2 % (39.0-53.0) Mean Corpuscular Volume 97 fL (79-100) Mean Corpuscular Hemoglobin 34 pg (25-35) Mean Corpuscular Hemoglobin Concent 35 g/dL (31-37) Red Cell Distribution Width 21.6 % (11.5-14.5) Platelet Count 197 x10^3/uL (140-400) Neutrophils (%) (Auto) 94 % (31-73) Lymphocytes (%) (Auto) 2 % (24-48) Monocytes (%) (Auto) 3 % (0-9) Eosinophils (%) (Auto) 0 % (0-3) Basophils (%) (Auto) 0 % (0-3) Neutrophils # (Auto) 10.3 x10^3uL (1.8-7.7) Lymphocytes # (Auto) 0.2 x10^3/uL (1.0-4.8) Monocytes # (Auto) 0.3 x10^3/uL (0.0-1.1) Eosinophils # (Auto) 0.0 x10^3/uL (0.0-0.7) Basophils # (Auto) 0.0 x10^3/uL (0.0-0.2) Segmented Neutrophils % 92 % (35-66) Band Neutrophils % 7 % (0-9) Lymphocytes % 1 % (24-48) Platelet Estimate Adequate (ADEQUATE) Anisocytosis Mod Macrocytosis Slight Prothrombin Time 14.0 SEC (11.7-14.0) Prothromb Time International Ratio 1.1 (0.8-1.1) Sodium Level 132 mmol/L (136-145) Potassium Level 3.5 mmol/L (3.5-5.1) Chloride Level 91 mmol/L (98-107) Carbon Dioxide Level 24 mmol/L (21-32) Anion Gap 17 (6-14) Blood Urea Nitrogen 14 mg/dL (8-26) Creatinine 1.0 mg/dL (0.7-1.3) Estimated GFR (Cockcroft-Gault) 77.0 BUN/Creatinine Ratio 14 (6-20) Glucose Level 118 mg/dL (70-99) Lactic Acid Level 2.7 mmol/L (0.4-2.0) Calcium Level 8.6 mg/dL (8.5-10.1) Total Bilirubin 0.7 mg/dL (0.2-1.0) Aspartate Amino Transf (AST/SGOT) 26 U/L (15-37) Alanine Aminotransferase (ALT/SGPT) 23 U/L (16-63) Alkaline Phosphatase 95 U/L (46-116) Troponin I Quantitative < 0.017 ng/mL (0.000-0.055) Total Protein 8.8 g/dL (6.4-8.2) Albumin 3.6 g/dL (3.4-5.0) Albumin/Globulin Ratio 0.7 (1.0-1.7) Lipase 167 U/L (73-393) Procalcitonin 0.23 ng/mL (0.00-0.10) CSF Color Colorless CSF Clarity Cloudy CSF WBC 4068 CSF RBC 20 CSF Mononuclear WBCs % 2 % CSF Polynuclear WBCs (%) 98 % CSF Glucose 45 mg/dL (37-70) CSF Total Protein 318.8 mg/dL (15.0-45.0) Test 07/15/18 20:15 07/16/18 03:30 07/16/18 04:30 07/16/18 06:30 Lactic Acid Level 2.5 mmol/L (0.4-2.0) Sodium Level 127 mmol/L (136-145) Potassium Level 3.9 mmol/L (3.5-5.1) Chloride Level 92 mmol/L (98-107) Carbon Dioxide Level 25 mmol/L (21-32) Anion Gap 10 (6-14) Blood Urea Nitrogen 10 mg/dL (8-26) Creatinine 0.8 mg/dL (0.7-1.3) 0.8 mg/dL (0.7-1.3) Estimated GFR (Cockcroft-Gault) 99.6 99.6 BUN/Creatinine Ratio 13 (6-20) Glucose Level 148 mg/dL (70-99) Calcium Level 7.9 mg/dL (8.5-10.1) Total Bilirubin 1.3 mg/dL (0.2-1.0) Aspartate Amino Transf (AST/SGOT) 22 U/L (15-37) Alanine Aminotransferase (ALT/SGPT) 19 U/L (16-63) Alkaline Phosphatase 75 U/L (46-116) Total Protein 7.8 g/dL (6.4-8.2) Albumin 2.9 g/dL (3.4-5.0) Albumin/Globulin Ratio 0.6 (1.0-1.7) White Blood Count 8.9 x10^3/uL (4.0-11.0) Red Blood Count 2.65 x10^6/uL (4.30-5.70) Hemoglobin 9.2 g/dL (13.0-17.5) Hematocrit 25.6 % (39.0-53.0) Mean Corpuscular Volume 97 fL (79-100) Mean Corpuscular Hemoglobin 35 pg (25-35) Mean Corpuscular Hemoglobin Concent 36 g/dL (31-37) Red Cell Distribution Width 21.8 % (11.5-14.5) Platelet Count 113 x10^3/uL (140-400) Neutrophils (%) (Auto) 93 % (31-73) Lymphocytes (%) (Auto) 5 % (24-48) Monocytes (%) (Auto) 2 % (0-9) Eosinophils (%) (Auto) 0 % (0-3) Basophils (%) (Auto) 0 % (0-3) Neutrophils # (Auto) 8.3 x10^3uL (1.8-7.7) Lymphocytes # (Auto) 0.4 x10^3/uL (1.0-4.8) Monocytes # (Auto) 0.2 x10^3/uL (0.0-1.1) Eosinophils # (Auto) 0.0 x10^3/uL (0.0-0.7) Basophils # (Auto) 0.0 x10^3/uL (0.0-0.2) Microbiology 07/15/18 CSF Gram Stain - Final, Complete Medications Current Medications Sodium Chloride 1,000 ml @ 1,000 mls/hr 1X ONCE IV Last administered on at 14:40; Start 07/15/18 at 14:00; Stop 07/15/18 at 14:59; Status DC Cefepime HCl 1 gm/ Dextrose 50 ml @ 100 mls/hr 1X STAT IV ; Start 07/15/18 at 13:55; Stop 07/15/18 at 14:24; Status UNV Vancomycin HCl (Vanco Per Pharmacy) 1 each PRN DAILY PRN MC SEE COMMENTS Last administered on 07/16/18at 11:11; Start 07/15/18 at 14:00 Cefepime HCl (Maxipime) 1 gm 1X ONCE IVP Last administered on 07/15/18at 15:47 ; Start 07/15/18 at 14:15; Stop 07/15/18 at 14:18; Status DC Vancomycin HCl 2 gm/Sodium Chloride 500 ml @ 250 mls/hr 1X ONCE IV Last administered on 07/15/18at 15:50; Start 07/15/18 at 14:30; Stop 07/15/18 at 16:29 ; Status DC Acetaminophen (Tylenol) 1,000 mg 1X ONCE PO Last administered on 07/15/18at 14: 40; Start 07/15/18 at 14:15; Stop 07/15/18 at 14:18; Status DC Fentanyl Citrate (Fentanyl 2ml Vial) 50 mcg 1X ONCE IV Last administered on at 15:01; Start 07/15/18 at 15:00; Stop 07/15/18 at 15:01; Status DC Ondansetron HCl (Zofran) 4 mg 1X ONCE IV Last administered on 07/15/18at 15:00 ; Start 07/15/18 at 15:00; Stop 07/15/18 at 15:01; Status DC Ketorolac Tromethamine (Toradol 15mg Vial) 15 mg 1X ONCE IV Last administered on 07/15/18at 15:46; Start 07/15/18 at 15:30; Stop 07/15/18 at 15:36; Status DC Fentanyl Citrate (Fentanyl 2ml Vial) 50 mcg 1X ONCE IV Last administered on at 15:43; Start 07/15/18 at 15:30; Stop 07/15/18 at 15:36; Status DC Sodium Chloride 1,000 ml @ 1,000 mls/hr 1X ONCE IV Last administered on at 16:18; Start 07/15/18 at 15:30; Stop 07/15/18 at 16:29; Status DC Metoclopramide HCl (Reglan Vial) 10 mg 1X ONCE IV Last administered on at 15:44; Start 07/15/18 at 15:30; Stop 07/15/18 at 15:36; Status DC Diphenhydramine HCl (Benadryl) 25 mg 1X ONCE IVP Last administered on at 15:44; Start 07/15/18 at 15:30; Stop 07/15/18 at 15:36; Status DC Lidocaine HCl 20 ml 1X ONCE IJ Last administered on 07/15/18at 17:41; Start at 16:15; Stop 07/15/18 at 16:18; Status DC Lorazepam (Ativan) 1 mg 1X ONCE IV Last administered on 07/15/18at 16:58; Start 07/15/18 at 16:15; Stop 07/15/18 at 16:18; Status DC Lidocaine HCl (Xylocaine-Mpf 2% Vial) 2 ml STK-MED ONCE .ROUTE ; Start 07/15/18 at 16:31; Stop 07/15/18 at 16:33; Status DC Cefepime HCl 2 gm/ Dextrose 100 ml @ 200 mls/hr Q8HRS IV ; Start 07/15/18 at 22 :00; Status UNV Sodium Chloride 1,000 ml @ 125 mls/hr Q8H IV Last administered on 07/16/18at 08 :57; Start 07/15/18 at 16:45 Fentanyl Citrate (Fentanyl 2ml Vial) 50 mcg PRN Q2HR PRN IV PAIN Last administered on 07/16/18at 01:57; Start 07/15/18 at 17:00; Stop 07/16/18 at 16:59 Sodium Chloride 1,000 ml @ 125 mls/hr Q8H IV ; Start 07/15/18 at 16:55; Stop 07/16/18 at 04:17; Status DC Morphine Sulfate (Morphine Sulfate) 6 mg 1X ONCE IV Last administered on at 17:57; Start 07/15/18 at 17:45; Stop 07/15/18 at 18:05; Status DC Trimethoprim/ Sulfamethoxazole 20 ml/Dextrose 500 ml @ 333.333 mls/hr Q8HRS IV ; Start 07/15/18 at 19:00; Stop 07/15/18 at 19:46; Status DC Acyclovir Sodium 730 mg/Dextrose 264.6 ml @ 264.6 mls/ hr 1X ONCE IV Last administered on 07/15/18at 18:04; Start 07/15/18 at 18:00; Stop 07/15/18 at 18:59 ; Status DC Dextrose 20 ml @ 200 mls/hr Q8HRS IV ; Start 07/15/18 at 19:00; Stop 07/15/18 at 19:46; Status DC Cefepime HCl (Maxipime) 2 gm Q8HRS IVP Last administered on 07/16/18at 06:18; Start 07/15/18 at 22:00 Vancomycin HCl 1.75 gm/Sodium Chloride 500 ml @ 250 mls/hr Q12H IV Last administered on 07/16/18at 03:54; Start 07/16/18 at 04:00 Vancomycin HCl (Vancomycin Trough Level) 1 each 1X ONCE MC ; Start 07/17/18 at 03:30; Stop 07/17/18 at 03:31 Ampicillin Sodium 2 gm/Sodium Chloride 100 ml @ 200 mls/hr Q4HRS IV Last administered on 07/16/18at 08:53; Start 07/15/18 at 20:00 Dexamethasone Sodium Phosphate (Decadron) 8 mg Q8HRS IV Last administered on at 06:18; Start 07/15/18 at 22:00 Allopurinol (Zyloprim) 300 mg DAILY PO Last administered on 07/16/18at 08:54; Start 07/16/18 at 09:00 Aspirin (Debbie Aspirin) 325 mg DAILY PO Last administered on 07/16/18at 08:54; Start 07/16/18 at 09:00 Tamsulosin HCl (Flomax) 0.4 mg QHS PO ; Start 07/16/18 at 21:00 Acyclovir (Zovirax) 800 mg BID PO Last administered on 07/16/18at 08:55; Start 07/16/18 at 09:00 Citalopram Hydrobromide (CeleXA) 20 mg DAILY PO Last administered on 07/16/18at 08:54; Start 07/16/18 at 09:00 Gabapentin (Neurontin) 300 mg BID PO Last administered on 07/16/18at 08:54; Start 07/16/18 at 09:00 Pantoprazole Sodium (Protonix) 40 mg DAILYAC PO Last administered on 07/16/18at 08:56; Start 07/16/18 at 07:30 Labetalol HCl (Normodyne Iv Push) 20 mg PRN Q2HR PRN IVP HYPERTENSION, SEE COMMENTS; Start 07/15/18 at 22:15 Acetaminophen/ Hydrocodone Bitart (Lortab 5/325) 1 tab PRN Q4HRS PRN PO PAIN; Start 07/16/18 at 12:15 Active Scripts Active Levaquin (Levofloxacin) 500 Mg Tablet 500 Mg PO DAILY06 Flomax (Tamsulosin Hcl) 0.4 Mg Cap.er.24h 0.4 Mg PO QHS Reported Revlimid (Lenalidomide) 25 Mg Capsule 25 Mg PO Gabapentin 300 Mg Capsule 300 Mg PO BID Sulfamethoxazole-Tmp Ds Tablet (Sulfamethoxazole/Trimethoprim) 1 Each Tablet 1 Tab PO BID Dexamethasone 4 Mg Tablet 40 Mg PO WEEKLY Acyclovir 800 Mg Tablet 1 Tab PO BID Aspirin 325 Mg Tablet 1 Tab PO DAILY Hyzaar 100-25 Tablet (Losartan/Hydrochlorothiazide) 1 Each Tablet 1 Each PO DAILY Hydrocodone-Apap 5-325 (Hydrocodone Bit/Acetaminophen) 1 Each Tablet 1 Tab PO PRN Q6HRS PRN Escitalopram Oxalate 10 Mg Tablet 10 Mg PO DAILY Flonase Allergy Relief (Fluticasone Propionate) 9.9 Ml [place].susp 2 Sprays NS DAILY Meloxicam 7.5 Mg Tablet 7.5 Mg PO DAILY Prilosec Otc (Omeprazole Magnesium) 20 Mg Tablet.dr 40 Mg PO DAILY Allopurinol 300 Mg Tablet 300 Mg PO DAILY Vitals/I & O Vital Sign - Last 24 Hours 07/15/18 07/15/18 07/15/18 07/15/18 14:05 14:27 15:01 15:18 Temp 102.0 102.0 Pulse 120 106 114 Resp 24 23 B/P (MAP) 141/80 (100) 132/74 (93) 162/113 (129) Pulse Ox 100 100 100 O2 Delivery Room Air Room Air Room Air 07/15/18 07/15/18 07/15/18 07/15/18 15:27 15:31 15:43 15:57 Temp 100.1 100.1 Pulse 112 118 Resp 27 B/P (MAP) 169/96 (120) 181/88 (119) Pulse Ox 100 99 O2 Delivery Room Air Room Air 07/15/18 07/15/18 07/15/18 07/15/18 16:17 16:22 17:51 17:57 Temp 102.1 102.1 Pulse 116 114 Resp 20 B/P (MAP) 165/85 (111) 193/98 (129) Pulse Ox 99 99 O2 Delivery Room Air Room Air 07/15/18 07/15/18 07/15/18 07/15/18 19:00 19:19 19:30 20:00 Temp 102.2 102.2 Pulse 118 116 Resp 16 26 B/P (MAP) 131/55 (80) 140/63 (88) Pulse Ox 96 94 O2 Delivery Room Air Room Air Room Air Room Air 07/15/18 07/15/18 07/15/18 07/15/18 20:00 20:30 21:00 22:00 Temp 100.2 101.4 100.2 101.4 Pulse 120 120 120 118 Resp 26 26 25 25 B/P (MAP) 150/71 (97) 168/76 (106) 168/86 (113) 158/76 (103) Pulse Ox 96 95 95 96 O2 Delivery Room Air Room Air Room Air Room Air 07/15/18 07/15/18 07/15/18 07/15/18 22:09 22:39 23:00 23:59 Pulse 110 Resp 20 24 B/P (MAP) 152/71 (98) Pulse Ox 94 96 97 O2 Delivery Room Air Room Air Room Air O2 Flow Rate 2.0 07/16/18 07/16/18 07/16/18 07/16/18 00:00 01:00 01:57 02:00 Temp 100.4 100.4 Pulse 110 112 110 Resp 27 28 24 30 B/P (MAP) 146/79 (101) 161/72 (101) 122/59 (80) Pulse Ox 92 94 95 99 O2 Delivery Room Air Room Air Room Air Room Air 07/16/18 07/16/18 07/16/18 07/16/18 02:27 03:00 04:00 04:00 Temp 100.3 100.3 Pulse 105 104 Resp 25 27 B/P (MAP) 136/76 (96) 143/83 (103) Pulse Ox 94 96 O2 Delivery Room Air Room Air Room Air Room Air 07/16/18 07/16/18 07/16/18 07/16/18 05:00 06:00 07:00 08:00 Temp 99.6 99.6 Pulse 100 100 90 90 Resp 27 23 20 20 B/P (MAP) 140/80 (100) 133/78 (96) 140/70 (93) 145/79 (101) Pulse Ox 97 98 98 98 O2 Delivery Room Air Room Air Room Air Room Air 07/16/18 07/16/18 07/16/18 07/16/18 08:00 09:00 10:00 11:00 Pulse 90 90 89 Resp 20 20 20 B/P (MAP) 137/80 (99) 140/80 (100) 133/52 (79) Pulse Ox 98 98 98 O2 Delivery Room Air Room Air Room Air Room Air Intake and Output 07/15/18 07/15/18 07/16/18 15:01 23:01 07:01 Intake Total 810 ml Output Total 1140 ml 1175 ml Balance -1140 ml -365 ml OMEGA NAIDU MD Jul 16, 2018 12:34
[2018-07-16] MEDS: TAMSULOSIN 0.4 MG CAP.ER.24H. PO SCH (20:17)
[2018-07-16] MEDS: ACETAMINOPHEN 325 MG TABLET. PO PRN (20:18)
--- NOTE | 2018-07-16 22:16 | CONS ---
DATE OF CONSULTATION: 07/16/2018 REQUESTING PHYSICIAN: Dr. Georgina Cerna. REASON FOR CONSULTATION: Headache, fever and confusion. HISTORY OF PRESENT ILLNESS: This is a 58-year-old gentleman who was just discharged from the hospital on Thursday. The patient was at that time admitted and was seen with having one time of fever. The patient's workup was negative and the patient was discharged on levofloxacin, and the patient returned with 1-day history of headache, fever and then, he was noted to be a bit confused. Now, the patient has undergone workup including a lumbar puncture as my communication with the ER physician and his CSF is showing 4068 wbc's. The patient is actually feeling much better as he is alert, awake, appropriate. A bit confusion that he was noted to have yesterday has gone. The headache is better. The patient is able to communicate properly. Denies any nausea, vomiting. Denies any diarrhea. Denies any chest pain, shortness of breath, abdominal pain, headache has improved. Denies any visual symptoms. Denies any urinary or bowel symptoms. PAST MEDICAL HISTORY: Positive for multiple myeloma. The patient is on Velcade and he has received Revlimid, also has hypertension, hyperlipidemia, gastroesophageal reflux disease and anxiety and has had recent cholecystectomy. SOCIAL HISTORY: Negative for smoking, alcohol, illicit drug use. There is no outdoor activity. There is no travel history. There are no young kids with any sickness. The patient does have a dog and 2 cats at home. ALLERGIES: HE IS LISTED ALLERGIC TO PENICILLIN, AMOXICILLIN, CAUSES STOMACH UPSET. CURRENT MEDICATIONS: Reviewed. I started the patient on vancomycin, cefepime, and ampicillin . The patient is already on acyclovir oral as outpatient and also started on dexamethasone. REVIEW OF SYSTEMS: As per HPI, all other systems reviewed and are negative other than what I mentioned in the HPI. PHYSICAL EXAMINATION: VITAL SIGNS: Temperature 99.6 with a T-max of 102.2, pulse 90, respirations 20, blood pressure 140/70. GENERAL: The patient is alert, awake, and appropriate, not in any distress. HEENT: Both pupils are round and reacting. No conjunctival lesion, no lesion in the mouth. NECK: Supple, no JVP, no lymphadenopathy. LUNGS: Clear to auscultation and percussion. HEART: S1, S2 regular. No gallop or murmur. ABDOMEN: Soft, nontender, no organomegaly. EXTREMITIES: No edema or cyanosis. MUSCULOSKELETAL: There is no rash. There are no signs of infection. NEUROLOGIC: The patient is alert, awake and appropriate x 3. No focal neurological deficit. SKIN: Is not showing any rash. LABORATORY DATA: His white count is 8.9, hemoglobin 9.2, platelets are 113,000. BUN and creatinine is normal. His liver functions are normal. Total bilirubin is 1.3. Albumin is 2.9. His procalcitonin is 0.23. Lactic acid 2.5. Urinalysis unremarkable. CSF showed 4068 wbc's, 20 rbc's, 98% polynuclear wbc's. CSF total protein is 318.8, glucose is 45, corresponding blood glucose was 148. CSF Gram stain is negative. Blood culture is pending. IMAGING STUDIES: CT of the head and chest x-ray is unremarkable for any acute changes. Minimal paranasal sinus disease seen. IMPRESSION: 1. Headache, fever in an immunosuppressed patient. 2. Cerebrospinal fluid pleocytosis consistent with meningitis, most likely to be bacterial meningitis. 3. Multiple myeloma, on chemotherapy. 4. Fever. 5. Encephalopathy, which has improved. 6. Hypertension. 7. Hyperlipidemia. 8. Gastroesophageal reflux disease. RECOMMENDATIONS: I would continue with vancomycin, cefepime and ampicillin and steroids. We will wait for the blood and CSF cultures. Supportive care. Discussion with Emergency Room physician done as well as discussed with Dr. Johnson, his oncologist. Thank you very much, Dr. Cerna, for giving me opportunity to participate in this patient's care. GENEVA LONGORIA MD DR: SHAWN/reina JOB#: [id number] / [id number] TONG
--- NOTE | 2018-07-16 23:45 | CONS ---
DATE OF CONSULTATION: 07/16/2018 TYPE OF REPORT: Medical oncology consultation. CONSULTATION REQUESTING PHYSICIAN: Georgina Cerna M.D. REASON FOR CONSULTATION: Multiple myeloma, on chemotherapy, now admitted with fever. HISTORY OF PRESENT ILLNESS: The patient is a 58-year-old gentleman who was diagnosed with multiple myeloma by a bone marrow biopsy on 06/25/2018, which revealed plasma cell neoplasm showing kappa light chain restriction. Plasma cell is comprised of about 40%-50% of the nucleated marrow cells. Serum protein electrophoresis on 06/18/2018 revealed M-spike of 6.7 and immunofixation revealed IgA kappa monoclonal antibody. IgA level was more than 6400 and free kappa light chains were at 1253 with kappa lambda ratio of 417.43. Beta 2 microglobulin was elevated at 3.8. He received a course of Decadron from 06/25/2018 at 40 mg daily for 4 days. After confirmation of diagnosis, he was started on chemotherapy with Velcade, Revlimid and Decadron. Velcade and Decadron was initiated on 07/06/2018. He started Revlimid on 07/08/2018. He received only one dose of Revlimid and then, he was admitted to [facility] with fever. He was subsequently discharged. He took 2 more doses of Revlimid on 07/13/2018 and 07/14/2018. He developed fever again on 07/15/2018 and he was admitted to [facility] for further evaluation. Infectious Disease was also consulted. The patient underwent lumbar puncture, which revealed a WBC count of 4000, which is concerning for bacterial infection. The patient was admitted to the ICU and started on antibiotics. I discussed in detail with Dr. Puneet Johnson from Infectious Diseases. PAST MEDICAL HISTORY: Hypertension, diverticulosis, GERD, gastritis, anxiety and hypercholesterolemia. PAST SURGICAL HISTORY: Tonsillectomy. SOCIAL HISTORY: He is a former smoker. 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 FAMILY HISTORY: Negative for multiple myeloma. There is history of diabetes and hypertension. REVIEW OF SYSTEMS: A 14-point review of system was performed. Pertinent positives are mentioned in the history of present illness. Rest of the system review is negative. PHYSICAL EXAMINATION: GENERAL APPEARANCE: The patient is a 58-year-old gentleman who is in no acute cardiorespiratory distress. VITAL SIGNS: Blood pressure 145/79 and temperature 99.6. HEENT: Head atraumatic and normocephalic. Eyes, no icterus. CHEST: Bilaterally symmetrical. HEART: S1 and S2 normal. ABDOMEN: No organomegaly. CENTRAL NERVOUS SYSTEM: No focal deficits. LYMPHATICS: No lymphadenopathy. SKIN: No rashes. PSYCHOLOGIC: Mood and affect are appropriate. LABORATORY DATA: WBC 8.9, hemoglobin 9.2 and platelet count 113. Creatinine 0.8. Calcium 7.9, total bilirubin 1.3, AST 22, ALT 19, alkaline phosphatase 75, total protein 7.8 and albumin 2.9. IMPRESSION AND PLAN: 1. Multiple myeloma, IgA kappa type, diagnosed by bone marrow biopsy on 06/25/2018. He received Decadron 40 mg daily for 4 days from 06/25/2018. After confirmation of diagnosis, he was started on chemotherapy with Velcade, Decadron and Revlimid from 07/06/2018. Revlimid was not available until 07/08/2018 and he took only one dose on 07/08/2018. He was subsequently hospitalized and Revlimid was held. He received cycle #1, day #4 of Velcade on 07/09/2018. He received cycle #1 day #8 of Velcade on 07/13/2018 along with Decadron 40 mg on 07/13/2018. He resumed Revlimid on 07/13/2018 and he also received a dose on 07/14/2018. He developed fever and confusion on 07/15/2018 and hence chemotherapy was again held. He was admitted to [facility] with suspected meningitis and he is on IV antibiotics per ID. I discussed with Dr. Puneet Johnson and with Dr. Georgina Cerna. I will plan to hold further chemotherapy until the underlying infection is resolved. His myeloma is under good control as his total protein is significantly improved. 2. Fever. Appreciate Infectious Disease consultation and management. 3. Meningitis suspected as the cerebrospinal fluid revealed evidence of elevated WBC count of 4000. Management per Infectious Diseases. 4. Anemia. Continue to monitor. Plan transfusion if hemoglobin drops to below 7. 5. CT scan of the head on 07/15/2018 is negative. Nonspecific white matter changes seen bilaterally, which may be due to chronic small vessel ischemic disease. PHILLIP FUNEZ MD DR: Kari JOB#: [id number] / [id number] TONG
[2018-07-17] MEDS: IV NORMAL SALINE 1000ML BAG 1,000 ML IV SCH ×3 (00:14→15:37)
[2018-07-17] MEDS: AMPICILLIN SODIUM 2 GM in IV NORMAL SALINE 100ML 100 ML IV SCH ×6 (00:14→20:02)
[2018-07-17 03:15] VITALS: BP 139/77
[2018-07-17 03:21] LABS: CALCIUM 7.4 mg/dL (8.5-10.1); CREATININE 0.7 mg/dL (0.7-1.3); GFR 116.2; POTASSIUM 3.6 mmol/L (3.5-5.1)
[2018-07-17 03:27] LABS: VANC TR 14.1 mcg/mL (10.0-20.0)
[2018-07-17 03:44] LABS: BASO % 0 % (0-3); EOS % 0 % (0-3); HEMATOCRIT 26.2 % (39.0-53.0); HEMOGLOBIN 9.3 g/dL (13.0-17.5); LYMPH # 0.3 x10^3/uL (1.0-4.8); LYMPH % 5 % (24-48); MEAN CORPUSCULAR HEMOGLOBIN 35 pg (25-35); MEAN CORPUSCULAR HGB CONC 35 g/dL (31-37); MEAN CORPUSCULAR VOLUME 99 fL (79-100); MONO # 0.2 x10^3/uL (0.0-1.1); MONO % 3 % (0-9); NEUT # 5.6 x10^3uL (1.8-7.7); NEUT % 91 % (31-73); PLATELET COUNT 104 x10^3/uL (140-400); RED BLOOD COUNT 2.65 x10^6/uL (4.30-5.70); WHITE BLOOD COUNT 6.2 x10^3/uL (4.0-11.0)
[2018-07-17] MEDS: VANCOMYCIN 1.75 GM in IV NORMAL SALINE 500ML BAG 500 ML IV SCH (04:08)
[2018-07-17] MEDS: VANCOMYCIN PER PHARMACY MC PRN ×3 (04:16→14:59)
[2018-07-17] MEDS: CEFEPIME HCL IV Push 2 GM VIAL. IVP SCH ×3 (06:36→21:44)
[2018-07-17] MEDS: DEXAMETHASONE SOD PHOS 4 MG/ML VIAL IV SCH ×3 (06:37→21:44)
--- NOTE | 2018-07-17 07:17 | PDOC ---
PROGRESS NOTES Chief Complaint Chief Complaint Severe sepsis meningitis, bacterial acute encephalopathy hyponatremiA HTN mult myeloma, w.chronic anemia ON CHEMO thrombocytopenia History of Present Illness History of Present Illness Admitted with severe sepsis in immunocompromised multiple myeloma patient with encephalopathy likely 2/2 meningitis initially admitted to ICU, transferred out on 07/17/18. Improved mental status today. STILL Headache, better. +LP. Would like to eat. ROS: no chills, sob or chest pain A/P: Meningitis - FU WITH ID, cultures. ON amp, cefepime, vanco, steroids, ivf, isolation Encephalopathy - likely toxic 2/2 sepsis on admission. Mental status improved. sepsis improved Hyponatremia - sodium up to 137 today myeloma chemo held for now htn meds held, consider resume tomorrow morning regular diet dvt ppx tmr if PLT ok gi ppx fu LP final result Vitals Vitals Vital Signs Date Time Temp Pulse Resp B/P (MAP) Pulse Ox O2 Delivery O2 Flow Rate FiO2 07/17/18 03:15 97.9 90 18 139/77 (97) 97 Room Air 97.9 Physical Exam General: Alert, Oriented X3, Cooperative, severe distress Heart: Regular rate, Normal S1, Normal S2 Lungs: Clear Abdomen: Normal bowel sounds, Soft Extremities: No cyanosis, No edema Skin: No rashes Labs LABS Laboratory Tests Test 07/17/18 03:00 White Blood Count 6.2 x10^3/uL (4.0-11.0) Red Blood Count 2.65 x10^6/uL (4.30-5.70) Hemoglobin 9.3 g/dL (13.0-17.5) Hematocrit 26.2 % (39.0-53.0) Mean Corpuscular Volume 99 fL (79-100) Mean Corpuscular Hemoglobin 35 pg (25-35) Mean Corpuscular Hemoglobin Concent 35 g/dL (31-37) Red Cell Distribution Width 22.0 % (11.5-14.5) Platelet Count 104 x10^3/uL (140-400) Neutrophils (%) (Auto) 91 % (31-73) Lymphocytes (%) (Auto) 5 % (24-48) Monocytes (%) (Auto) 3 % (0-9) Eosinophils (%) (Auto) 0 % (0-3) Basophils (%) (Auto) 0 % (0-3) Neutrophils # (Auto) 5.6 x10^3uL (1.8-7.7) Lymphocytes # (Auto) 0.3 x10^3/uL (1.0-4.8) Monocytes # (Auto) 0.2 x10^3/uL (0.0-1.1) Eosinophils # (Auto) 0.0 x10^3/uL (0.0-0.7) Basophils # (Auto) 0.0 x10^3/uL (0.0-0.2) Sodium Level 137 mmol/L (136-145) Potassium Level 3.6 mmol/L (3.5-5.1) Chloride Level 101 mmol/L (98-107) Carbon Dioxide Level 26 mmol/L (21-32) Anion Gap 10 (6-14) Blood Urea Nitrogen 13 mg/dL (8-26) Creatinine 0.7 mg/dL (0.7-1.3) Estimated GFR (Cockcroft-Gault) 116.2 Glucose Level 191 mg/dL (70-99) Calcium Level 7.4 mg/dL (8.5-10.1) Vancomycin Level Trough 14.1 mcg/mL (10.0-20.0) Vancomycin Last Dose Date 07/16/18 Vancomycin Last Dose Time 1600 Assessment and Plan Assessmemt and Plan Problems Medical Problems: (1) Altered mental status Status: Acute Comment Review of Relevant I have reviewed the following items cristina (where applicable) has been applied. Labs Laboratory Tests Test 07/15/18 14:23 07/15/18 15:00 07/15/18 15:10 07/15/18 17:28 Urine Collection Type Unknown Urine Color Yellow Urine Clarity Clear Urine pH 6.5 Urine Specific [place] 1.015 Urine Protein Negative mg/dL (NEG-TRACE) Urine Glucose (UA) Negative mg/dL (NEG) Urine Ketones (Stick) Negative mg/dL (NEG) Urine Blood Negative (NEG) Urine Nitrite Negative (NEG) Urine Bilirubin Negative (NEG) Urine Urobilinogen Dipstick 0.2 mg/dL (0.2 mg/dL) Urine Leukocyte Esterase Negative (NEG) Urine RBC 0 /HPF (0-2) Urine WBC 0 /HPF (0-4) Urine Transitional Epithelial Cells Few /LPF Urine Bacteria 0 /HPF (0-FEW) Urine Hyaline Casts Moderate /HPF Urine Mucus Mod /LPF Influenza Type A Antigen Negative (NEGATIVE) Influenza Type B Antigen Negative (NEGATIVE) White Blood Count 11.0 x10^3/uL (4.0-11.0) Red Blood Count 2.49 x10^6/uL (4.30-5.70) Hemoglobin 8.6 g/dL (13.0-17.5) Hematocrit 24.2 % (39.0-53.0) Mean Corpuscular Volume 97 fL (79-100) Mean Corpuscular Hemoglobin 34 pg (25-35) Mean Corpuscular Hemoglobin Concent 35 g/dL (31-37) Red Cell Distribution Width 21.6 % (11.5-14.5) Platelet Count 197 x10^3/uL (140-400) Neutrophils (%) (Auto) 94 % (31-73) Lymphocytes (%) (Auto) 2 % (24-48) Monocytes (%) (Auto) 3 % (0-9) Eosinophils (%) (Auto) 0 % (0-3) Basophils (%) (Auto) 0 % (0-3) Neutrophils # (Auto) 10.3 x10^3uL (1.8-7.7) Lymphocytes # (Auto) 0.2 x10^3/uL (1.0-4.8) Monocytes # (Auto) 0.3 x10^3/uL (0.0-1.1) Eosinophils # (Auto) 0.0 x10^3/uL (0.0-0.7) Basophils # (Auto) 0.0 x10^3/uL (0.0-0.2) Segmented Neutrophils % 92 % (35-66) Band Neutrophils % 7 % (0-9) Lymphocytes % 1 % (24-48) Platelet Estimate Adequate (ADEQUATE) Anisocytosis Mod Macrocytosis Slight Prothrombin Time 14.0 SEC (11.7-14.0) Prothromb Time International Ratio 1.1 (0.8-1.1) Sodium Level 132 mmol/L (136-145) Potassium Level 3.5 mmol/L (3.5-5.1) Chloride Level 91 mmol/L (98-107) Carbon Dioxide Level 24 mmol/L (21-32) Anion Gap 17 (6-14) Blood Urea Nitrogen 14 mg/dL (8-26) Creatinine 1.0 mg/dL (0.7-1.3) Estimated GFR (Cockcroft-Gault) 77.0 BUN/Creatinine Ratio 14 (6-20) Glucose Level 118 mg/dL (70-99) Lactic Acid Level 2.7 mmol/L (0.4-2.0) Calcium Level 8.6 mg/dL (8.5-10.1) Total Bilirubin 0.7 mg/dL (0.2-1.0) Aspartate Amino Transf (AST/SGOT) 26 U/L (15-37) Alanine Aminotransferase (ALT/SGPT) 23 U/L (16-63) Alkaline Phosphatase 95 U/L (46-116) Troponin I Quantitative < 0.017 ng/mL (0.000-0.055) Total Protein 8.8 g/dL (6.4-8.2) Albumin 3.6 g/dL (3.4-5.0) Albumin/Globulin Ratio 0.7 (1.0-1.7) Lipase 167 U/L (73-393) Procalcitonin 0.23 ng/mL (0.00-0.10) CSF Color Colorless CSF Clarity Cloudy CSF WBC 4068 CSF RBC 20 CSF Mononuclear WBCs % 2 % CSF Polynuclear WBCs (%) 98 % CSF Glucose 45 mg/dL (37-70) CSF Total Protein 318.8 mg/dL (15.0-45.0) Test 07/15/18 20:15 07/16/18 03:30 07/16/18 04:30 07/16/18 06:30 Lactic Acid Level 2.5 mmol/L (0.4-2.0) Sodium Level 127 mmol/L (136-145) Potassium Level 3.9 mmol/L (3.5-5.1) Chloride Level 92 mmol/L (98-107) Carbon Dioxide Level 25 mmol/L (21-32) Anion Gap 10 (6-14) Blood Urea Nitrogen 10 mg/dL (8-26) Creatinine 0.8 mg/dL (0.7-1.3) 0.8 mg/dL (0.7-1.3) Estimated GFR (Cockcroft-Gault) 99.6 99.6 BUN/Creatinine Ratio 13 (6-20) Glucose Level 148 mg/dL (70-99) Calcium Level 7.9 mg/dL (8.5-10.1) Total Bilirubin 1.3 mg/dL (0.2-1.0) Aspartate Amino Transf (AST/SGOT) 22 U/L (15-37) Alanine Aminotransferase (ALT/SGPT) 19 U/L (16-63) Alkaline Phosphatase 75 U/L (46-116) Total Protein 7.8 g/dL (6.4-8.2) Albumin 2.9 g/dL (3.4-5.0) Albumin/Globulin Ratio 0.6 (1.0-1.7) White Blood Count 8.9 x10^3/uL (4.0-11.0) Red Blood Count 2.65 x10^6/uL (4.30-5.70) Hemoglobin 9.2 g/dL (13.0-17.5) Hematocrit 25.6 % (39.0-53.0) Mean Corpuscular Volume 97 fL (79-100) Mean Corpuscular Hemoglobin 35 pg (25-35) Mean Corpuscular Hemoglobin Concent 36 g/dL (31-37) Red Cell Distribution Width 21.8 % (11.5-14.5) Platelet Count 113 x10^3/uL (140-400) Neutrophils (%) (Auto) 93 % (31-73) Lymphocytes (%) (Auto) 5 % (24-48) Monocytes (%) (Auto) 2 % (0-9) Eosinophils (%) (Auto) 0 % (0-3) Basophils (%) (Auto) 0 % (0-3) Neutrophils # (Auto) 8.3 x10^3uL (1.8-7.7) Lymphocytes # (Auto) 0.4 x10^3/uL (1.0-4.8) Monocytes # (Auto) 0.2 x10^3/uL (0.0-1.1) Eosinophils # (Auto) 0.0 x10^3/uL (0.0-0.7) Basophils # (Auto) 0.0 x10^3/uL (0.0-0.2) Test 07/17/18 03:00 White Blood Count 6.2 x10^3/uL (4.0-11.0) Red Blood Count 2.65 x10^6/uL (4.30-5.70) Hemoglobin 9.3 g/dL (13.0-17.5) Hematocrit 26.2 % (39.0-53.0) Mean Corpuscular Volume 99 fL (79-100) Mean Corpuscular Hemoglobin 35 pg (25-35) Mean Corpuscular Hemoglobin Concent 35 g/dL (31-37) Red Cell Distribution Width 22.0 % (11.5-14.5) Platelet Count 104 x10^3/uL (140-400) Neutrophils (%) (Auto) 91 % (31-73) Lymphocytes (%) (Auto) 5 % (24-48) Monocytes (%) (Auto) 3 % (0-9) Eosinophils (%) (Auto) 0 % (0-3) Basophils (%) (Auto) 0 % (0-3) Neutrophils # (Auto) 5.6 x10^3uL (1.8-7.7) Lymphocytes # (Auto) 0.3 x10^3/uL (1.0-4.8) Monocytes # (Auto) 0.2 x10^3/uL (0.0-1.1) Eosinophils # (Auto) 0.0 x10^3/uL (0.0-0.7) Basophils # (Auto) 0.0 x10^3/uL (0.0-0.2) Sodium Level 137 mmol/L (136-145) Potassium Level 3.6 mmol/L (3.5-5.1) Chloride Level 101 mmol/L (98-107) Carbon Dioxide Level 26 mmol/L (21-32) Anion Gap 10 (6-14) Blood Urea Nitrogen 13 mg/dL (8-26) Creatinine 0.7 mg/dL (0.7-1.3) Estimated GFR (Cockcroft-Gault) 116.2 Glucose Level 191 mg/dL (70-99) Calcium Level 7.4 mg/dL (8.5-10.1) Vancomycin Level Trough 14.1 mcg/mL (10.0-20.0) Vancomycin Last Dose Date 07/16/18 Vancomycin Last Dose Time 1600 Laboratory Tests Test 07/17/18 03:00 White Blood Count 6.2 x10^3/uL (4.0-11.0) Red Blood Count 2.65 x10^6/uL (4.30-5.70) Hemoglobin 9.3 g/dL (13.0-17.5) Hematocrit 26.2 % (39.0-53.0) Mean Corpuscular Volume 99 fL (79-100) Mean Corpuscular Hemoglobin 35 pg (25-35) Mean Corpuscular Hemoglobin Concent 35 g/dL (31-37) Red Cell Distribution Width 22.0 % (11.5-14.5) Platelet Count 104 x10^3/uL (140-400) Neutrophils (%) (Auto) 91 % (31-73) Lymphocytes (%) (Auto) 5 % (24-48) Monocytes (%) (Auto) 3 % (0-9) Eosinophils (%) (Auto) 0 % (0-3) Basophils (%) (Auto) 0 % (0-3) Neutrophils # (Auto) 5.6 x10^3uL (1.8-7.7) Lymphocytes # (Auto) 0.3 x10^3/uL (1.0-4.8) Monocytes # (Auto) 0.2 x10^3/uL (0.0-1.1) Eosinophils # (Auto) 0.0 x10^3/uL (0.0-0.7) Basophils # (Auto) 0.0 x10^3/uL (0.0-0.2) Sodium Level 137 mmol/L (136-145) Potassium Level 3.6 mmol/L (3.5-5.1) Chloride Level 101 mmol/L (98-107) Carbon Dioxide Level 26 mmol/L (21-32) Anion Gap 10 (6-14) Blood Urea Nitrogen 13 mg/dL (8-26) Creatinine 0.7 mg/dL (0.7-1.3) Estimated GFR (Cockcroft-Gault) 116.2 Glucose Level 191 mg/dL (70-99) Calcium Level 7.4 mg/dL (8.5-10.1) Vancomycin Level Trough 14.1 mcg/mL (10.0-20.0) Vancomycin Last Dose Date 07/16/18 Vancomycin Last Dose Time 1600 Microbiology 07/15/18 Blood Culture - Preliminary, Resulted NO GROWTH AFTER 1 DAY 07/15/18 Anaerobic/Aerobic Culture, Resulted Pending 07/15/18 Anaerobic Culture Result 1 (ANDRY), Resulted Pending 07/15/18 Aerobic Culture, Resulted Pending 07/15/18 Aerobic Culture Result 1 (ANDRY), Resulted Pending 07/15/18 Gram Stain - Final, Resulted 07/15/18 Gram Stain Result 1 (ANDRY) - Final, Resulted 07/15/18 Gram Stain Result 2 (ANDRY) - Final, Resulted Medications Current Medications Sodium Chloride 1,000 ml @ 1,000 mls/hr 1X ONCE IV Last administered on at 14:40; Start 07/15/18 at 14:00; Stop 07/15/18 at 14:59; Status DC Cefepime HCl 1 gm/ Dextrose 50 ml @ 100 mls/hr 1X STAT IV ; Start 07/15/18 at 13:55; Stop 07/15/18 at 14:24; Status UNV Vancomycin HCl (Vanco Per Pharmacy) 1 each PRN DAILY PRN MC SEE COMMENTS Last administered on 07/17/18at 04:17; Start 07/15/18 at 14:00 Cefepime HCl (Maxipime) 1 gm 1X ONCE IVP Last administered on 07/15/18at 15:47 ; Start 07/15/18 at 14:15; Stop 07/15/18 at 14:18; Status DC Vancomycin HCl 2 gm/Sodium Chloride 500 ml @ 250 mls/hr 1X ONCE IV Last administered on 07/15/18at 15:50; Start 07/15/18 at 14:30; Stop 07/15/18 at 16:29 ; Status DC Acetaminophen (Tylenol) 1,000 mg 1X ONCE PO Last administered on 07/15/18at 14: 40; Start 07/15/18 at 14:15; Stop 07/15/18 at 14:18; Status DC Fentanyl Citrate (Fentanyl 2ml Vial) 50 mcg 1X ONCE IV Last administered on at 15:01; Start 07/15/18 at 15:00; Stop 07/15/18 at 15:01; Status DC Ondansetron HCl (Zofran) 4 mg 1X ONCE IV Last administered on 07/15/18at 15:00 ; Start 07/15/18 at 15:00; Stop 07/15/18 at 15:01; Status DC Ketorolac Tromethamine (Toradol 15mg Vial) 15 mg 1X ONCE IV Last administered on 07/15/18at 15:46; Start 07/15/18 at 15:30; Stop 07/15/18 at 15:36; Status DC Fentanyl Citrate (Fentanyl 2ml Vial) 50 mcg 1X ONCE IV Last administered on at 15:43; Start 07/15/18 at 15:30; Stop 07/15/18 at 15:36; Status DC Sodium Chloride 1,000 ml @ 1,000 mls/hr 1X ONCE IV Last administered on at 16:18; Start 07/15/18 at 15:30; Stop 07/15/18 at 16:29; Status DC Metoclopramide HCl (Reglan Vial) 10 mg 1X ONCE IV Last administered on at 15:44; Start 07/15/18 at 15:30; Stop 07/15/18 at 15:36; Status DC Diphenhydramine HCl (Benadryl) 25 mg 1X ONCE IVP Last administered on at 15:44; Start 07/15/18 at 15:30; Stop 07/15/18 at 15:36; Status DC Lidocaine HCl 20 ml 1X ONCE IJ Last administered on 07/15/18at 17:41; Start at 16:15; Stop 07/15/18 at 16:18; Status DC Lorazepam (Ativan) 1 mg 1X ONCE IV Last administered on 07/15/18at 16:58; Start 07/15/18 at 16:15; Stop 07/15/18 at 16:18; Status DC Lidocaine HCl (Xylocaine-Mpf 2% Vial) 2 ml STK-MED ONCE .ROUTE ; Start 07/15/18 at 16:31; Stop 07/15/18 at 16:33; Status DC Cefepime HCl 2 gm/ Dextrose 100 ml @ 200 mls/hr Q8HRS IV ; Start 07/15/18 at 22 :00; Status UNV Sodium Chloride 1,000 ml @ 125 mls/hr Q8H IV Last administered on 07/17/18at 00 :14; Start 07/15/18 at 16:45 Fentanyl Citrate (Fentanyl 2ml Vial) 50 mcg PRN Q2HR PRN IV PAIN Last administered on 07/16/18at 01:57; Start 07/15/18 at 17:00; Stop 07/16/18 at 16:59 ; Status DC Sodium Chloride 1,000 ml @ 125 mls/hr Q8H IV ; Start 07/15/18 at 16:55; Stop 07/16/18 at 04:17; Status DC Morphine Sulfate (Morphine Sulfate) 6 mg 1X ONCE IV Last administered on at 17:57; Start 07/15/18 at 17:45; Stop 07/15/18 at 18:05; Status DC Trimethoprim/ Sulfamethoxazole 20 ml/Dextrose 500 ml @ 333.333 mls/hr Q8HRS IV ; Start 07/15/18 at 19:00; Stop 07/15/18 at 19:46; Status DC Acyclovir Sodium 730 mg/Dextrose 264.6 ml @ 264.6 mls/ hr 1X ONCE IV Last administered on 07/15/18at 18:04; Start 07/15/18 at 18:00; Stop 07/15/18 at 18:59 ; Status DC Dextrose 20 ml @ 200 mls/hr Q8HRS IV ; Start 07/15/18 at 19:00; Stop 07/15/18 at 19:46; Status DC Cefepime HCl (Maxipime) 2 gm Q8HRS IVP Last administered on 07/17/18at 06:36; Start 07/15/18 at 22:00 Vancomycin HCl 1.75 gm/Sodium Chloride 500 ml @ 250 mls/hr Q12H IV Last administered on 07/17/18at 04:08; Start 07/16/18 at 04:00; Stop 07/17/18 at 04:10 ; Status DC Vancomycin HCl (Vancomycin Trough Level) 1 each 1X ONCE MC Last administered on 07/17/18at 03:30; Start 07/17/18 at 03:30; Stop 07/17/18 at 03:31; Status DC Ampicillin Sodium 2 gm/Sodium Chloride 100 ml @ 200 mls/hr Q4HRS IV Last administered on 07/17/18at 04:07; Start 07/15/18 at 20:00 Dexamethasone Sodium Phosphate (Decadron) 8 mg Q8HRS IV Last administered on at 06:37; Start 07/15/18 at 22:00 Allopurinol (Zyloprim) 300 mg DAILY PO Last administered on 07/16/18at 08:54; Start 07/16/18 at 09:00 Aspirin (Debbie Aspirin) 325 mg DAILY PO Last administered on 07/16/18at 08:54; Start 07/16/18 at 09:00 Tamsulosin HCl (Flomax) 0.4 mg QHS PO Last administered on 07/16/18at 20:17; Start 07/16/18 at 21:00 Acyclovir (Zovirax) 800 mg BID PO Last administered on 07/16/18at 20:18; Start 07/16/18 at 09:00 Citalopram Hydrobromide (CeleXA) 20 mg DAILY PO Last administered on 07/16/18at 08:54; Start 07/16/18 at 09:00 Gabapentin (Neurontin) 300 mg BID PO Last administered on 07/16/18at 20:18; Start 07/16/18 at 09:00 Pantoprazole Sodium (Protonix) 40 mg DAILYAC PO Last administered on 07/16/18at 08:56; Start 07/16/18 at 07:30 Labetalol HCl (Normodyne Iv Push) 20 mg PRN Q2HR PRN IVP HYPERTENSION, SEE COMMENTS; Start 07/15/18 at 22:15 Acetaminophen/ Hydrocodone Bitart (Lortab 5/325) 1 tab PRN Q4HRS PRN PO PAIN; Start 07/16/18 at 12:15 Acetaminophen (Tylenol) 650 mg PRN Q6HRS PRN PO FEVER Last administered on 07/16at 20:18; Start 07/16/18 at 12:30 Ondansetron HCl (Zofran) 4 mg PRN Q6HRS PRN IV NAUSEA/VOMITING 1ST CHOICE; Start 07/16/18 at 12:30 Morphine Sulfate (Morphine Sulfate) 2 mg PRN Q2HR PRN IV MODERATE TO SEVERE PAIN; Start 07/16/18 at 12:30 Tramadol HCl (Ultram) 50 mg PRN Q6HRS PRN PO MILD TO MODERATE PAIN; Start 07/16 at 12:30 Docusate Sodium (Colace) 100 mg PRN DAILY PRN PO HARD STOOLS; Start 07/16/18 at 12:30 Vancomycin HCl 2 gm/Sodium Chloride 500 ml @ 250 mls/hr Q12H IV ; Start at 16:00 Vancomycin HCl (Vancomycin Trough Level) 1 each 1X ONCE MC ; Start 07/18/18 at 15:30; Stop 07/18/18 at 15:31 Active Scripts Active Levaquin (Levofloxacin) 500 Mg Tablet 500 Mg PO DAILY06 Flomax (Tamsulosin Hcl) 0.4 Mg Cap.er.24h 0.4 Mg PO QHS Reported Revlimid (Lenalidomide) 25 Mg Capsule 25 Mg PO Gabapentin 300 Mg Capsule 300 Mg PO BID Sulfamethoxazole-Tmp Ds Tablet (Sulfamethoxazole/Trimethoprim) 1 Each Tablet 1 Tab PO BID Dexamethasone 4 Mg Tablet 40 Mg PO WEEKLY Acyclovir 800 Mg Tablet 1 Tab PO BID Aspirin 325 Mg Tablet 1 Tab PO DAILY Hyzaar 100-25 Tablet (Losartan/Hydrochlorothiazide) 1 Each Tablet 1 Each PO DAILY Hydrocodone-Apap 5-325 (Hydrocodone Bit/Acetaminophen) 1 Each Tablet 1 Tab PO PRN Q6HRS PRN Escitalopram Oxalate 10 Mg Tablet 10 Mg PO DAILY Flonase Allergy Relief (Fluticasone Propionate) 9.9 Ml [place].susp 2 Sprays NS DAILY Meloxicam 7.5 Mg Tablet 7.5 Mg PO DAILY Prilosec Otc (Omeprazole Magnesium) 20 Mg Tablet.dr 40 Mg PO DAILY Allopurinol 300 Mg Tablet 300 Mg PO DAILY Vitals/I & O Vital Sign - Last 24 Hours 07/16/18 07/16/18 07/16/18 07/16/18 08:00 08:00 09:00 10:00 Pulse 90 90 90 Resp 20 20 20 B/P (MAP) 145/79 (101) 137/80 (99) 140/80 (100) Pulse Ox 98 98 98 O2 Delivery Room Air Room Air Room Air Room Air 07/16/18 07/16/18 07/16/18 07/16/18 11:00 15:11 19:15 23:15 Temp 98.1 98.4 97.5 98.1 98.4 97.5 Pulse 89 88 98 92 Resp 20 20 18 18 B/P (MAP) 133/52 (79) 108/70 (83) 109/53 (71) 136/76 (96) Pulse Ox 98 95 97 97 O2 Delivery Room Air Room Air Room Air Room Air 07/17/18 03:15 Temp 97.9 97.9 Pulse 90 Resp 18 B/P (MAP) 139/77 (97) Pulse Ox 97 O2 Delivery Room Air Intake and Output 07/16/18 07/16/18 07/17/18 15:00 23:00 07:00 Intake Total 750 ml 200 ml 500 ml Output Total 1550 ml 1300 ml Balance -800 ml 200 ml -800 ml Nutrition Consultation Dietary Evaluation: Recommendations by RD: Increase Calorie Intake Comments: continue w/regular diet as ordered if PO intake is not consistently >50% of meals, recommend adding oral supplements to improve calorie/protein intake Expected Outcomes/Goals: PO intake to meet >75% est needs Malnutrition Findings: Food and Nutrition Intake (Mod: <75% est energy req 7days Weight Status: Obese CRISSY BRYSON MD Jul 17, 2018 07:17
[2018-07-17 08:00] VITALS: BP 141/85
[2018-07-17] MEDS: ASPIRIN 325 MG TABLET PO SCH (08:43)
[2018-07-17] MEDS: CITALOPRAM 20 MG TABLET. PO SCH (08:43)
[2018-07-17] MEDS: ALLOPURINOL 300 MG TABLET. PO SCH (08:43)
[2018-07-17] MEDS: GABAPENTIN 300 MG CAPSULE. PO SCH ×2 (08:43→20:04)
[2018-07-17] MEDS: ACYCLOVIR 200 MG CAPSULE. PO SCH ×2 (08:43→20:03)
[2018-07-17] MEDS: PANTOPRAZOLE 40 MG TABLET.DR. PO SCH (08:44)
--- NOTE | 2018-07-17 10:54 | PDOC ---
Infectious Disease Note Subjective Subjective Thinking improved but still forgetful at times and having to search for words c/o sinus congestion, teeth ache and ears feel full Ongoing itching of abdomen since April No fever last 24 hours Denies VALENZUELA/photophobia/chills/sweats ROS ROS per HPI otherwise neg Vital Sign Vital Signs Vital Signs Date Time Temp Pulse Resp B/P (MAP) Pulse Ox O2 Delivery O2 Flow Rate FiO2 07/17/18 08:00 97.9 90 18 141/85 (103) 98 Room Air 97.9 Physical Exam PHYSICAL EXAM GENERAL: Propped up in bed, alert, NAD HENT: PERRL. Conjunctivae pale. Oral cavity, pharynx pink and moist. 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, nonfocal PIV Labs Lab Laboratory Tests Test 07/17/18 03:00 White Blood Count 6.2 x10^3/uL (4.0-11.0) Red Blood Count 2.65 x10^6/uL (4.30-5.70) Hemoglobin 9.3 g/dL (13.0-17.5) Hematocrit 26.2 % (39.0-53.0) Mean Corpuscular Volume 99 fL (79-100) Mean Corpuscular Hemoglobin 35 pg (25-35) Mean Corpuscular Hemoglobin Concent 35 g/dL (31-37) Red Cell Distribution Width 22.0 % (11.5-14.5) Platelet Count 104 x10^3/uL (140-400) Neutrophils (%) (Auto) 91 % (31-73) Lymphocytes (%) (Auto) 5 % (24-48) Monocytes (%) (Auto) 3 % (0-9) Eosinophils (%) (Auto) 0 % (0-3) Basophils (%) (Auto) 0 % (0-3) Neutrophils # (Auto) 5.6 x10^3uL (1.8-7.7) Lymphocytes # (Auto) 0.3 x10^3/uL (1.0-4.8) Monocytes # (Auto) 0.2 x10^3/uL (0.0-1.1) Eosinophils # (Auto) 0.0 x10^3/uL (0.0-0.7) Basophils # (Auto) 0.0 x10^3/uL (0.0-0.2) Sodium Level 137 mmol/L (136-145) Potassium Level 3.6 mmol/L (3.5-5.1) Chloride Level 101 mmol/L (98-107) Carbon Dioxide Level 26 mmol/L (21-32) Anion Gap 10 (6-14) Blood Urea Nitrogen 13 mg/dL (8-26) Creatinine 0.7 mg/dL (0.7-1.3) Estimated GFR (Cockcroft-Gault) 116.2 Glucose Level 191 mg/dL (70-99) Calcium Level 7.4 mg/dL (8.5-10.1) Vancomycin Level Trough 14.1 mcg/mL (10.0-20.0) Vancomycin Last Dose Date 07/16/18 Vancomycin Last Dose Time 1600 Micro 07/15/18 Blood Culture - Preliminary, Resulted NO GROWTH AFTER 1 DAY ANAEROBIC-AEROBIC CULTURE PENDING ANAEROBIC RES 1 PENDING AEROBIC CULT PENDING AEROBIC RES 1 PENDING GRAM STAIN Final Final report GRAM STAIN RES 1 Final Comment Few white blood cells. GRAM STAIN RES 2 Final No organisms seen Objective Assessment Headache, fever in an immunosuppressed patient. Cerebrospinal fluid pleocytosis consistent with meningitis, most likely bacterial meningitis. - 07/15. CSF WBC 4068, glucose 45, T protein 318.8. GS no organisms. cx in process Multiple myeloma, on chemotherapy. Fever. Encephalopathy, which has improved. PCN & amoxicillin causing stomach upset Hypertension. Hyperlipidemia. Gastroesophageal reflux disease. Plan Plan of Care vanc, cefepime and ampicillin f/u cultures HSV and WNV pending Monitor labs/temp/renal function D/w Attending Co-Sign Attending Co-Sign The patient was seen and interviewed as well as examined at the bedside. The chart was reviewed. The case was discussed. Agree with the plan of care. LEE ANN FELTON APRN Jul 17, 2018 10:54 EFRA RESENDIZ MD Jul 17, 2018 15:38
[2018-07-17 11:00] VITALS: BP 144/86
[2018-07-17 15:00] VITALS: BP 140/87
[2018-07-17] MEDS: VANCOMYCIN 2 GM in IV NORMAL SALINE 500ML BAG 500 ML IV SCH (15:38)
[2018-07-17 19:30] VITALS: BP 140/79
[2018-07-17] MEDS: TAMSULOSIN 0.4 MG CAP.ER.24H. PO SCH (20:04)
[2018-07-17] MEDS: ACETAMINOPHEN 325 MG TABLET. PO PRN (20:13)
[2018-07-17 23:44] VITALS: BP 158/96
[2018-07-18] MEDS: AMPICILLIN SODIUM 2 GM in IV NORMAL SALINE 100ML 100 ML IV SCH ×6 (00:08→20:20)
[2018-07-18] MEDS: diphenhydrAMINE HCL 25 MG CAPSULE PO PRN ×2 (00:09→22:13)
[2018-07-18] MEDS: traZODone 50 MG TABLET. PO PRN ×2 (00:09→22:14)
[2018-07-18 03:25] VITALS: BP 145/89
[2018-07-18] MEDS: IV NORMAL SALINE 1000ML BAG 1,000 ML IV SCH ×4 (04:01→20:21)
[2018-07-18] MEDS: CEFEPIME HCL IV Push 2 GM VIAL. IVP SCH ×3 (05:02→22:15)
[2018-07-18] MEDS: DEXAMETHASONE SOD PHOS 4 MG/ML VIAL IV SCH ×3 (05:02→22:15)
[2018-07-18] MEDS: VANCOMYCIN 2 GM in IV NORMAL SALINE 500ML BAG 500 ML IV SCH ×2 (05:03→16:47)
[2018-07-18 07:00] VITALS: BP 171/96
[2018-07-18] MEDS: GABAPENTIN 300 MG CAPSULE. PO SCH ×2 (08:31→20:19)
[2018-07-18] MEDS: ASPIRIN 325 MG TABLET PO SCH (08:31)
[2018-07-18] MEDS: ALLOPURINOL 300 MG TABLET. PO SCH (08:31)
[2018-07-18] MEDS: ACYCLOVIR 200 MG CAPSULE. PO SCH ×2 (08:32→20:18)
[2018-07-18] MEDS: PANTOPRAZOLE 40 MG TABLET.DR. PO SCH (08:32)
[2018-07-18] MEDS: CITALOPRAM 20 MG TABLET. PO SCH (08:32)
--- NOTE | 2018-07-18 08:46 | PDOC ---
PROGRESS NOTES Chief Complaint Chief Complaint Severe sepsis meningitis, bacterial acute encephalopathy hyponatremiA HTN mult myeloma, w.chronic anemia ON CHEMO thrombocytopenia History of Present Illness History of Present Illness Admitted with severe sepsis in immunocompromised multiple myeloma patient with encephalopathy likely 2/2 meningitis initially admitted to ICU, transferred out on 07/17/18. Improved mental status today. Nearly resolved Headache, better. +LP, but no growth on cultures, viral serologies pending. Slept better last night with trazodone and benadryl. Would like steroids to be oral. ROS: no chills, sob or chest pain A/P: Meningitis - FU WITH ID, cultures. ON amp, cefepime, vanco, steroids, ivf, isolation Encephalopathy - likely toxic 2/2 sepsis on admission. Mental status improved. sepsis improved Hyponatremia - sodium up to 137, will repeat myeloma chemo held for now htn meds held, consider resume today with elevated BP Insomnia with some depression - can cont trazodone prn qhs regular diet dvt ppx tmr if PLT ok gi ppx fu LP final result Vitals Vitals Vital Signs Date Time Temp Pulse Resp B/P (MAP) Pulse Ox O2 Delivery O2 Flow Rate FiO2 07/18/18 07:00 97.7 87 18 171/96 (121) 97 Room Air 97.7 Physical Exam Physical Exam GENERAL: Propped up in bed, alert, NAD HENT: PERRL. Conjunctivae pale. Oral cavity, pharynx pink and moist. Sinuses nontender NECK: Supple LUNGS: Clear CV: S1, S2 ABDOMEN: Soft, NT EXT: No gross edema or cyanosis SKIN: warm without rash ENDOCRINOLOGY PHYSICIAN: Alert, responds appropriately, nonfocal PIV General: Alert, Oriented X3, Cooperative, severe distress Heart: Regular rate, Normal S1, Normal S2 Lungs: Clear Abdomen: Normal bowel sounds, Soft Extremities: No cyanosis, No edema Skin: No rashes Assessment and Plan Assessmemt and Plan Problems Medical Problems: (1) Altered mental status Status: Acute Comment Review of Relevant I have reviewed the following items cristina (where applicable) has been applied. Labs Laboratory Tests Test 07/17/18 03:00 White Blood Count 6.2 x10^3/uL (4.0-11.0) Red Blood Count 2.65 x10^6/uL (4.30-5.70) Hemoglobin 9.3 g/dL (13.0-17.5) Hematocrit 26.2 % (39.0-53.0) Mean Corpuscular Volume 99 fL (79-100) Mean Corpuscular Hemoglobin 35 pg (25-35) Mean Corpuscular Hemoglobin Concent 35 g/dL (31-37) Red Cell Distribution Width 22.0 % (11.5-14.5) Platelet Count 104 x10^3/uL (140-400) Neutrophils (%) (Auto) 91 % (31-73) Lymphocytes (%) (Auto) 5 % (24-48) Monocytes (%) (Auto) 3 % (0-9) Eosinophils (%) (Auto) 0 % (0-3) Basophils (%) (Auto) 0 % (0-3) Neutrophils # (Auto) 5.6 x10^3uL (1.8-7.7) Lymphocytes # (Auto) 0.3 x10^3/uL (1.0-4.8) Monocytes # (Auto) 0.2 x10^3/uL (0.0-1.1) Eosinophils # (Auto) 0.0 x10^3/uL (0.0-0.7) Basophils # (Auto) 0.0 x10^3/uL (0.0-0.2) Sodium Level 137 mmol/L (136-145) Potassium Level 3.6 mmol/L (3.5-5.1) Chloride Level 101 mmol/L (98-107) Carbon Dioxide Level 26 mmol/L (21-32) Anion Gap 10 (6-14) Blood Urea Nitrogen 13 mg/dL (8-26) Creatinine 0.7 mg/dL (0.7-1.3) Estimated GFR (Cockcroft-Gault) 116.2 Glucose Level 191 mg/dL (70-99) Calcium Level 7.4 mg/dL (8.5-10.1) Vancomycin Level Trough 14.1 mcg/mL (10.0-20.0) Vancomycin Last Dose Date 07/16/18 Vancomycin Last Dose Time 1600 Microbiology 07/15/18 Blood Culture - Preliminary, Resulted NO GROWTH AFTER 2 DAYS 07/15/18 Anaerobic/Aerobic Culture, Resulted Pending 07/15/18 Anaerobic Culture Result 1 (ANDRY), Resulted Pending 07/15/18 Aerobic Culture, Resulted Pending 07/15/18 Aerobic Culture Result 1 (ANDRY), Resulted Pending 07/15/18 Gram Stain - Final, Resulted 07/15/18 Gram Stain Result 1 (ANDRY) - Final, Resulted 07/15/18 Gram Stain Result 2 (ANDRY) - Final, Resulted Medications Current Medications Sodium Chloride 1,000 ml @ 1,000 mls/hr 1X ONCE IV Last administered on at 14:40; Start 07/15/18 at 14:00; Stop 07/15/18 at 14:59; Status DC Cefepime HCl 1 gm/ Dextrose 50 ml @ 100 mls/hr 1X STAT IV ; Start 07/15/18 at 13:55; Stop 07/15/18 at 14:24; Status UNV Vancomycin HCl (Vanco Per Pharmacy) 1 each PRN DAILY PRN MC SEE COMMENTS Last administered on 07/17/18at 14:59; Start 07/15/18 at 14:00 Cefepime HCl (Maxipime) 1 gm 1X ONCE IVP Last administered on 07/15/18at 15:47 ; Start 07/15/18 at 14:15; Stop 07/15/18 at 14:18; Status DC Vancomycin HCl 2 gm/Sodium Chloride 500 ml @ 250 mls/hr 1X ONCE IV Last administered on 07/15/18at 15:50; Start 07/15/18 at 14:30; Stop 07/15/18 at 16:29 ; Status DC Acetaminophen (Tylenol) 1,000 mg 1X ONCE PO Last administered on 07/15/18at 14: 40; Start 07/15/18 at 14:15; Stop 07/15/18 at 14:18; Status DC Fentanyl Citrate (Fentanyl 2ml Vial) 50 mcg 1X ONCE IV Last administered on at 15:01; Start 07/15/18 at 15:00; Stop 07/15/18 at 15:01; Status DC Ondansetron HCl (Zofran) 4 mg 1X ONCE IV Last administered on 07/15/18at 15:00 ; Start 07/15/18 at 15:00; Stop 07/15/18 at 15:01; Status DC Ketorolac Tromethamine (Toradol 15mg Vial) 15 mg 1X ONCE IV Last administered on 07/15/18at 15:46; Start 07/15/18 at 15:30; Stop 07/15/18 at 15:36; Status DC Fentanyl Citrate (Fentanyl 2ml Vial) 50 mcg 1X ONCE IV Last administered on at 15:43; Start 07/15/18 at 15:30; Stop 07/15/18 at 15:36; Status DC Sodium Chloride 1,000 ml @ 1,000 mls/hr 1X ONCE IV Last administered on at 16:18; Start 07/15/18 at 15:30; Stop 07/15/18 at 16:29; Status DC Metoclopramide HCl (Reglan Vial) 10 mg 1X ONCE IV Last administered on at 15:44; Start 07/15/18 at 15:30; Stop 07/15/18 at 15:36; Status DC Diphenhydramine HCl (Benadryl) 25 mg 1X ONCE IVP Last administered on at 15:44; Start 07/15/18 at 15:30; Stop 07/15/18 at 15:36; Status DC Lidocaine HCl 20 ml 1X ONCE IJ Last administered on 07/15/18at 17:41; Start at 16:15; Stop 07/15/18 at 16:18; Status DC Lorazepam (Ativan) 1 mg 1X ONCE IV Last administered on 07/15/18at 16:58; Start 07/15/18 at 16:15; Stop 07/15/18 at 16:18; Status DC Lidocaine HCl (Xylocaine-Mpf 2% Vial) 2 ml STK-MED ONCE .ROUTE ; Start 07/15/18 at 16:31; Stop 07/15/18 at 16:33; Status DC Cefepime HCl 2 gm/ Dextrose 100 ml @ 200 mls/hr Q8HRS IV ; Start 07/15/18 at 22 :00; Status UNV Sodium Chloride 1,000 ml @ 125 mls/hr Q8H IV Last administered on 07/18/18at 04 :01; Start 07/15/18 at 16:45 Fentanyl Citrate (Fentanyl 2ml Vial) 50 mcg PRN Q2HR PRN IV PAIN Last administered on 07/16/18at 01:57; Start 07/15/18 at 17:00; Stop 07/16/18 at 16:59 ; Status DC Sodium Chloride 1,000 ml @ 125 mls/hr Q8H IV ; Start 07/15/18 at 16:55; Stop 07/16/18 at 04:17; Status DC Morphine Sulfate (Morphine Sulfate) 6 mg 1X ONCE IV Last administered on at 17:57; Start 07/15/18 at 17:45; Stop 07/15/18 at 18:05; Status DC Trimethoprim/ Sulfamethoxazole 20 ml/Dextrose 500 ml @ 333.333 mls/hr Q8HRS IV ; Start 07/15/18 at 19:00; Stop 07/15/18 at 19:46; Status DC Acyclovir Sodium 730 mg/Dextrose 264.6 ml @ 264.6 mls/ hr 1X ONCE IV Last administered on 07/15/18at 18:04; Start 07/15/18 at 18:00; Stop 07/15/18 at 18:59 ; Status DC Dextrose 20 ml @ 200 mls/hr Q8HRS IV ; Start 07/15/18 at 19:00; Stop 07/15/18 at 19:46; Status DC Cefepime HCl (Maxipime) 2 gm Q8HRS IVP Last administered on 07/18/18at 05:02; Start 07/15/18 at 22:00 Vancomycin HCl 1.75 gm/Sodium Chloride 500 ml @ 250 mls/hr Q12H IV Last administered on 07/17/18at 04:08; Start 07/16/18 at 04:00; Stop 07/17/18 at 04:10 ; Status DC Vancomycin HCl (Vancomycin Trough Level) 1 each 1X ONCE MC Last administered on 07/17/18at 03:30; Start 07/17/18 at 03:30; Stop 07/17/18 at 03:31; Status DC Ampicillin Sodium 2 gm/Sodium Chloride 100 ml @ 200 mls/hr Q4HRS IV Last administered on 07/18/18at 08:33; Start 07/15/18 at 20:00 Dexamethasone Sodium Phosphate (Decadron) 8 mg Q8HRS IV Last administered on at 05:02; Start 07/15/18 at 22:00 Allopurinol (Zyloprim) 300 mg DAILY PO Last administered on 07/18/18at 08:31; Start 07/16/18 at 09:00 Aspirin (Debbie Aspirin) 325 mg DAILY PO Last administered on 07/18/18 08:31; Start 07/16/18 at 09:00 Tamsulosin HCl (Flomax) 0.4 mg QHS PO Last administered on 07/17/18at 20:04; Start 07/16/18 at 21:00 Acyclovir (Zovirax) 800 mg BID PO Last administered on 07/18/18 08:32; Start 07/16/18 at 09:00 Citalopram Hydrobromide (CeleXA) 20 mg DAILY PO Last administered on 07/18/18 08:32; Start 07/16/18 at 09:00 Gabapentin (Neurontin) 300 mg BID PO Last administered on 07/18/18 08:31; Start 07/16/18 at 09:00 Pantoprazole Sodium (Protonix) 40 mg DAILYAC PO Last administered on 07/18/18 08:32; Start 07/16/18 at 07:30 Labetalol HCl (Normodyne Iv Push) 20 mg PRN Q2HR PRN IVP HYPERTENSION, SEE COMMENTS; Start 07/15/18 at 22:15 Acetaminophen/ Hydrocodone Bitart (Lortab 5/325) 1 tab PRN Q4HRS PRN PO MODERATE PAIN; Start 07/16/18 at 12:15 Acetaminophen (Tylenol) 650 mg PRN Q6HRS PRN PO FEVER Last administered on 07/17at 20:13; Start 07/16/18 at 12:30 Ondansetron HCl (Zofran) 4 mg PRN Q6HRS PRN IV NAUSEA/VOMITING 1ST CHOICE; Start 07/16/18 at 12:30 Morphine Sulfate (Morphine Sulfate) 2 mg PRN Q2HR PRN IV MODERATE TO SEVERE PAIN; Start 07/16/18 at 12:30 Tramadol HCl (Ultram) 50 mg PRN Q6HRS PRN PO MILD TO MODERATE PAIN; Start 07/16 at 12:30 Docusate Sodium (Colace) 100 mg PRN DAILY PRN PO HARD STOOLS; Start 07/16/18 at 12:30 Vancomycin HCl 2 gm/Sodium Chloride 500 ml @ 250 mls/hr Q12H IV Last administered on 07/18/18at 05:03; Start 07/17/18 at 16:00 Vancomycin HCl (Vancomycin Trough Level) 1 each 1X ONCE MC ; Start 07/18/18 at 15:30; Stop 07/18/18 at 15:31 Diphenhydramine HCl (Benadryl) 25 mg PRN QHS PRN PO INSOMNIA Last administered on 07/18/18at 00:09; Start 07/17/18 at 23:00 Trazodone HCl (Desyrel) 50 mg PRN QHS PRN PO INSOMNIA Last administered on 07/18at 00:09; Start 07/17/18 at 23:00 Active Scripts Active Levaquin (Levofloxacin) 500 Mg Tablet 500 Mg PO DAILY06 Flomax (Tamsulosin Hcl) 0.4 Mg Cap.er.24h 0.4 Mg PO QHS Reported Revlimid (Lenalidomide) 25 Mg Capsule 25 Mg PO Gabapentin 300 Mg Capsule 300 Mg PO BID Sulfamethoxazole-Tmp Ds Tablet (Sulfamethoxazole/Trimethoprim) 1 Each Tablet 1 Tab PO BID Dexamethasone 4 Mg Tablet 40 Mg PO WEEKLY Acyclovir 800 Mg Tablet 1 Tab PO BID Aspirin 325 Mg Tablet 1 Tab PO DAILY Hyzaar 100-25 Tablet (Losartan/Hydrochlorothiazide) 1 Each Tablet 1 Each PO DAILY Hydrocodone-Apap 5-325 (Hydrocodone Bit/Acetaminophen) 1 Each Tablet 1 Tab PO PRN Q6HRS PRN Escitalopram Oxalate 10 Mg Tablet 10 Mg PO DAILY Flonase Allergy Relief (Fluticasone Propionate) 9.9 Ml [place].susp 2 Sprays NS DAILY Meloxicam 7.5 Mg Tablet 7.5 Mg PO DAILY Prilosec Otc (Omeprazole Magnesium) 20 Mg Tablet.dr 40 Mg PO DAILY Allopurinol 300 Mg Tablet 300 Mg PO DAILY Vitals/I & O Vital Sign - Last 24 Hours 07/17/18 07/17/18 07/17/18 07/17/18 11:00 15:00 19:30 20:00 Temp 97.9 98.6 98.1 97.9 98.6 98.1 Pulse 90 93 93 Resp 18 18 20 B/P (MAP) 144/86 (105) 140/87 (104) 140/79 (99) Pulse Ox 98 97 99 O2 Delivery Room Air Room Air Room Air Room Air 07/17/18 07/18/18 07/18/18 23:44 03:25 07:00 Temp 98.4 98.4 97.7 98.4 98.4 97.7 Pulse 83 83 87 Resp 18 B/P (MAP) 158/96 (116) 145/89 (107) 171/96 (121) Pulse Ox 99 98 97 O2 Delivery Room Air Room Air Room Air Intake and Output 07/17/18 07/17/18 07/18/18 15:00 23:00 07:00 Intake Total 350 ml 850 ml Output Total 500 ml Balance -150 ml 850 ml Nutrition Consultation Dietary Evaluation: Recommendations by RD: Increase Calorie Intake Comments: continue w/regular diet as ordered if PO intake is not consistently >50% of meals, recommend adding oral supplements to improve calorie/protein intake Expected Outcomes/Goals: PO intake to meet >75% est needs Malnutrition Findings: Food and Nutrition Intake (Mod: <75% est energy req 7days Weight Status: Obese CRISSY BRYSON MD Jul 18, 2018 08:46
[2018-07-18 09:43] LABS: CREATININE 0.8 mg/dL (0.7-1.3); GFR 99.6
[2018-07-18 09:49] LABS: BASO % 0 % (0-3); EOS % 0 % (0-3); HEMATOCRIT 29.5 % (39.0-53.0); HEMOGLOBIN 10.2 g/dL (13.0-17.5); LYMPH # 0.5 x10^3/uL (1.0-4.8); LYMPH % 7 % (24-48); MEAN CORPUSCULAR HEMOGLOBIN 34 pg (25-35); MEAN CORPUSCULAR HGB CONC 35 g/dL (31-37); MEAN CORPUSCULAR VOLUME 99 fL (79-100); MONO # 0.3 x10^3/uL (0.0-1.1); MONO % 4 % (0-9); NEUT # 7.2 x10^3uL (1.8-7.7); NEUT % 90 % (31-73); PLATELET COUNT 129 x10^3/uL (140-400); RED BLOOD COUNT 2.97 x10^6/uL (4.30-5.70); RED CELL DISTRIBUTION WIDTH 22.6 % (11.5-14.5)
[2018-07-18 09:50] LABS: ALBUMIN 3.1 g/dL (3.4-5.0); ALBUMIN/GLOBULIN RATIO 0.7 (1.0-1.7); CALCIUM 7.4 mg/dL (8.5-10.1); CREATININE 0.8 mg/dL (0.7-1.3); GFR 99.6; POTASSIUM 3.3 mmol/L (3.5-5.1); TOTAL BILIRUBIN 0.8 mg/dL (0.2-1.0); TOTAL PROTEIN 7.5 g/dL (6.4-8.2)
[2018-07-18 11:00] VITALS: BP 138/99
[2018-07-18] MEDS: VANCOMYCIN PER PHARMACY MC PRN ×2 (11:57→15:58)
--- NOTE | 2018-07-18 12:12 | PDOC ---
Infectious Disease Note Subjective Subjective Thought processes continue to improve Slept well last night after dose trazodone and Benadryl No fever last 24 hours Chronic visual changes Denies VALENZUELA/photophobia/chills/sweats/N/V/SOA ROS ROS per HPI otherwise neg Vital Sign Vital Signs Vital Signs Date Time Temp Pulse Resp B/P (MAP) Pulse Ox O2 Delivery O2 Flow Rate FiO2 07/18/18 11:00 98.6 85 18 138/99 (112) 98 Room Air 98.6 07/18/18 08:00 2.0 Physical Exam PHYSICAL EXAM GENERAL: Propped up in bed, alert, NAD HENT: PERRL. Conjunctivae pale. Oral cavity, pharynx pink and moist. Sinuses nontender NECK: Supple LUNGS: Clear CV: S1, S2 ABDOMEN: Soft, NT EXT: No gross edema or cyanosis SKIN: warm without rash PROGRAM DIRECTOR SCOUTING: Alert, responds appropriately, nonfocal PIV Labs Lab Laboratory Tests Test 07/18/18 09:10 White Blood Count 8.0 x10^3/uL (4.0-11.0) Red Blood Count 2.97 x10^6/uL (4.30-5.70) Hemoglobin 10.2 g/dL (13.0-17.5) Hematocrit 29.5 % (39.0-53.0) Mean Corpuscular Volume 99 fL (79-100) Mean Corpuscular Hemoglobin 34 pg (25-35) Mean Corpuscular Hemoglobin Concent 35 g/dL (31-37) Red Cell Distribution Width 22.6 % (11.5-14.5) Platelet Count 129 x10^3/uL (140-400) Neutrophils (%) (Auto) 90 % (31-73) Lymphocytes (%) (Auto) 7 % (24-48) Monocytes (%) (Auto) 4 % (0-9) Eosinophils (%) (Auto) 0 % (0-3) Basophils (%) (Auto) 0 % (0-3) Neutrophils # (Auto) 7.2 x10^3uL (1.8-7.7) Lymphocytes # (Auto) 0.5 x10^3/uL (1.0-4.8) Monocytes # (Auto) 0.3 x10^3/uL (0.0-1.1) Eosinophils # (Auto) 0.0 x10^3/uL (0.0-0.7) Basophils # (Auto) 0.0 x10^3/uL (0.0-0.2) Sodium Level 141 mmol/L (136-145) Potassium Level 3.3 mmol/L (3.5-5.1) Chloride Level 103 mmol/L (98-107) Carbon Dioxide Level 27 mmol/L (21-32) Anion Gap 11 (6-14) Blood Urea Nitrogen 13 mg/dL (8-26) Creatinine 0.8 mg/dL (0.7-1.3) Estimated GFR (Cockcroft-Gault) 99.6 BUN/Creatinine Ratio 16 (6-20) Glucose Level 204 mg/dL (70-99) Calcium Level 7.4 mg/dL (8.5-10.1) Total Bilirubin 0.8 mg/dL (0.2-1.0) Aspartate Amino Transf (AST/SGOT) 18 U/L (15-37) Alanine Aminotransferase (ALT/SGPT) 18 U/L (16-63) Alkaline Phosphatase 70 U/L (46-116) Total Protein 7.5 g/dL (6.4-8.2) Albumin 3.1 g/dL (3.4-5.0) Albumin/Globulin Ratio 0.7 (1.0-1.7) Micro 07/15/18 Blood Culture - Preliminary, Resulted NO GROWTH AFTER 2 DAY ANAEROBIC-AEROBIC CULTURE PENDING ANAEROBIC RES 1 PENDING AEROBIC CULT PENDING AEROBIC RES 1 PENDING GRAM STAIN Final Final report GRAM STAIN RES 1 Final Comment Few white blood cells. GRAM STAIN RES 2 Final No organisms seen Objective Assessment Headache, fever in an immunosuppressed patient - improved Cerebrospinal fluid pleocytosis consistent with meningitis, most likely bacterial meningitis. - 07/15. CSF WBC 4068, glucose 45, T protein 318.8. GS no organisms. cx in process Multiple myeloma, on chemotherapy. Fever, improved Encephalopathy, which has improved. PCN & amoxicillin causing stomach upset Hypertension. Hyperlipidemia. Gastroesophageal reflux disease. Plan Plan of Care vanc, cefepime and ampicillin f/u cultures HSV and WNV pending Monitor labs/temp/renal function D/w Attending Co-Sign Attending Co-Sign The patient was seen and interviewed as well as examined at the bedside. The chart was reviewed. The case was discussed. Agree with the plan of care. SUBLETTE,LEE ANN C PERSONAL CARE ASSISTANT Jul 18, 2018 12:12 EFRA RESENDIZ MD Jul 18, 2018 13:55
[2018-07-18 15:00] VITALS: BP 149/88
[2018-07-18] MEDS: LOSARTAN POTASSIUM 50 MG TABLET. PO SCH (15:05)
[2018-07-18 15:52] LABS: VANC TR 15.9 mcg/mL (10.0-20.0)
[2018-07-18 19:35] VITALS: BP 158/101
[2018-07-18] MEDS: TAMSULOSIN 0.4 MG CAP.ER.24H. PO SCH (20:19)
[2018-07-18] MEDS: ACETAMINOPHEN 325 MG TABLET. PO PRN (20:30)
[2018-07-18 22:11] LABS: HERPES SIMPLEX TYPE 1 Negative (Negative); HERPES SIMPLEX TYPE 2 Negative (Negative)
[2018-07-18 23:01] VITALS: BP 147/82
[2018-07-19] MEDS: AMPICILLIN SODIUM 2 GM in IV NORMAL SALINE 100ML 100 ML IV SCH ×6 (00:08→20:32)
[2018-07-19 03:43] VITALS: BP 152/94
[2018-07-19] MEDS: CEFEPIME HCL IV Push 2 GM VIAL. IVP SCH ×3 (05:07→22:48)
[2018-07-19] MEDS: DEXAMETHASONE SOD PHOS 4 MG/ML VIAL IV SCH ×3 (05:08→22:48)
[2018-07-19] MEDS: VANCOMYCIN 2 GM in IV NORMAL SALINE 500ML BAG 500 ML IV SCH (05:08)
[2018-07-19 05:35] LABS: BASO % 0 % (0-3); EOS % 0 % (0-3); HEMATOCRIT 24.9 % (39.0-53.0); HEMOGLOBIN 8.7 g/dL (13.0-17.5); LYMPH # 0.5 x10^3/uL (1.0-4.8); LYMPH % 10 % (24-48); MEAN CORPUSCULAR HEMOGLOBIN 35 pg (25-35); MEAN CORPUSCULAR HGB CONC 35 g/dL (31-37); MEAN CORPUSCULAR VOLUME 100 fL (79-100); MONO # 0.4 x10^3/uL (0.0-1.1); MONO % 7 % (0-9); NEUT # 4.5 x10^3uL (1.8-7.7); NEUT % 84 % (31-73); PLATELET COUNT 118 x10^3/uL (140-400); RED BLOOD COUNT 2.49 x10^6/uL (4.30-5.70); WHITE BLOOD COUNT 5.4 x10^3/uL (4.0-11.0)
[2018-07-19 05:54] LABS: ALBUMIN 2.5 g/dL (3.4-5.0); ALBUMIN/GLOBULIN RATIO 0.7 (1.0-1.7); CREATININE 0.6 mg/dL (0.7-1.3); GFR 138.9; POTASSIUM 3.4 mmol/L (3.5-5.1); TOTAL BILIRUBIN 0.5 mg/dL (0.2-1.0); TOTAL PROTEIN 6.2 g/dL (6.4-8.2)
[2018-07-19 07:55] VITALS: BP 175/103
--- NOTE | 2018-07-19 08:44 | PDOC ---
PROGRESS NOTES Chief Complaint Chief Complaint Severe sepsis meningitis, bacterial acute encephalopathy hyponatremiA HTN mult myeloma, w.chronic anemia ON CHEMO thrombocytopenia History of Present Illness History of Present Illness Admitted with severe sepsis in immunocompromised multiple myeloma patient with encephalopathy likely 2/2 meningitis initially admitted to ICU, transferred out on 07/17/18. Improved mental status today. Nearly resolved Headache, better. +LP, but no growth on cultures, viral serologies pending. Slept better last night with trazodone and benadryl. Would like steroids to be oral. ROS: no chills, sob or chest pain A/P: Meningitis - FU with ID, cultures. ON amp, cefepime, vanco, steroids, IVF, isolation. Presumptive bacterial as his improvement was brisk with treatment, continuing to improve Encephalopathy - likely toxic 2/2 sepsis on admission. Mental status improved. Sepsis improved Hyponatremia - sodium up to 137, will monitor Myeloma chemo held for now - seen by oncology HTN meds held - resumed today with elevated BP Insomnia with some depression - can cont trazodone prn qhs with benadryl, has been effective May be able to ambulate with mask if ok with ID today regular diet dvt ppx tmr if PLT ok gi ppx Vitals Vitals Vital Signs Date Time Temp Pulse Resp B/P (MAP) Pulse Ox O2 Delivery O2 Flow Rate FiO2 07/19/18 07:55 97.5 91 17 175/103 (127) 99 Room Air 97.5 07/18/18 08:00 2.0 Physical Exam Physical Exam GENERAL: Propped up in bed, alert, NAD HENT: PERRL. Conjunctivae pale. Oral cavity, pharynx pink and moist. Sinuses nontender NECK: Supple LUNGS: Clear CV: S1, S2 ABDOMEN: Soft, NT EXT: No gross edema or cyanosis SKIN: warm without rash DIRECTOR OF SERVICES: Alert, responds appropriately, nonfocal PIV General: Alert, Oriented X3, Cooperative, severe distress Heart: Regular rate, Normal S1, Normal S2 Lungs: Clear Abdomen: Normal bowel sounds, Soft Extremities: No cyanosis, No edema Skin: No rashes Labs LABS Laboratory Tests Test 07/18/18 09:10 07/18/18 15:30 07/19/18 04:01 07/19/18 04:27 White Blood Count 8.0 x10^3/uL (4.0-11.0) 5.4 x10^3/uL (4.0-11.0) Red Blood Count 2.97 x10^6/uL (4.30-5.70) 2.49 x10^6/uL (4.30-5.70) Hemoglobin 10.2 g/dL (13.0-17.5) 8.7 g/dL (13.0-17.5) Hematocrit 29.5 % (39.0-53.0) 24.9 % (39.0-53.0) Mean Corpuscular Volume 99 fL (79-100) 100 fL (79-100) Mean Corpuscular Hemoglobin 34 pg (25-35) 35 pg (25-35) Mean Corpuscular Hemoglobin Concent 35 g/dL (31-37) 35 g/dL (31-37) Red Cell Distribution Width 22.6 % (11.5-14.5) 22.0 % (11.5-14.5) Platelet Count 129 x10^3/uL (140-400) 118 x10^3/uL (140-400) Neutrophils (%) (Auto) 90 % (31-73) 84 % (31-73) Lymphocytes (%) (Auto) 7 % (24-48) 10 % (24-48) Monocytes (%) (Auto) 4 % (0-9) 7 % (0-9) Eosinophils (%) (Auto) 0 % (0-3) 0 % (0-3) Basophils (%) (Auto) 0 % (0-3) 0 % (0-3) Neutrophils # (Auto) 7.2 x10^3uL (1.8-7.7) 4.5 x10^3uL (1.8-7.7) Lymphocytes # (Auto) 0.5 x10^3/uL (1.0-4.8) 0.5 x10^3/uL (1.0-4.8) Monocytes # (Auto) 0.3 x10^3/uL (0.0-1.1) 0.4 x10^3/uL (0.0-1.1) Eosinophils # (Auto) 0.0 x10^3/uL (0.0-0.7) 0.0 x10^3/uL (0.0-0.7) Basophils # (Auto) 0.0 x10^3/uL (0.0-0.2) 0.0 x10^3/uL (0.0-0.2) Sodium Level 141 mmol/L (136-145) 142 mmol/L (136-145) Potassium Level 3.3 mmol/L (3.5-5.1) 3.4 mmol/L (3.5-5.1) Chloride Level 103 mmol/L (98-107) 107 mmol/L (98-107) Carbon Dioxide Level 27 mmol/L (21-32) 24 mmol/L (21-32) Anion Gap 11 (6-14) 11 (6-14) Blood Urea Nitrogen 13 mg/dL (8-26) 12 mg/dL (8-26) Creatinine 0.8 mg/dL (0.7-1.3) 0.6 mg/dL (0.7-1.3) Estimated GFR (Cockcroft-Gault) 99.6 138.9 BUN/Creatinine Ratio 16 (6-20) 20 (6-20) Glucose Level 204 mg/dL (70-99) 145 mg/dL (70-99) Calcium Level 7.4 mg/dL (8.5-10.1) 7.0 mg/dL (8.5-10.1) Total Bilirubin 0.8 mg/dL (0.2-1.0) 0.5 mg/dL (0.2-1.0) Aspartate Amino Transf (AST/SGOT) 18 U/L (15-37) 16 U/L (15-37) Alanine Aminotransferase (ALT/SGPT) 18 U/L (16-63) 17 U/L (16-63) Alkaline Phosphatase 70 U/L (46-116) 59 U/L (46-116) Total Protein 7.5 g/dL (6.4-8.2) 6.2 g/dL (6.4-8.2) Albumin 3.1 g/dL (3.4-5.0) 2.5 g/dL (3.4-5.0) Albumin/Globulin Ratio 0.7 (1.0-1.7) 0.7 (1.0-1.7) Vancomycin Level Trough 15.9 mcg/mL (10.0-20.0) Vancomycin Last Dose Date 07/18/18 Vancomycin Last Dose Time 0400 Assessment and Plan Assessmemt and Plan Problems Medical Problems: (1) Altered mental status Status: Acute Comment Review of Relevant I have reviewed the following items cristina (where applicable) has been applied. Labs Laboratory Tests Test 07/18/18 09:10 07/18/18 15:30 07/19/18 04:01 07/19/18 04:27 White Blood Count 8.0 x10^3/uL (4.0-11.0) 5.4 x10^3/uL (4.0-11.0) Red Blood Count 2.97 x10^6/uL (4.30-5.70) 2.49 x10^6/uL (4.30-5.70) Hemoglobin 10.2 g/dL (13.0-17.5) 8.7 g/dL (13.0-17.5) Hematocrit 29.5 % (39.0-53.0) 24.9 % (39.0-53.0) Mean Corpuscular Volume 99 fL (79-100) 100 fL (79-100) Mean Corpuscular Hemoglobin 34 pg (25-35) 35 pg (25-35) Mean Corpuscular Hemoglobin Concent 35 g/dL (31-37) 35 g/dL (31-37) Red Cell Distribution Width 22.6 % (11.5-14.5) 22.0 % (11.5-14.5) Platelet Count 129 x10^3/uL (140-400) 118 x10^3/uL (140-400) Neutrophils (%) (Auto) 90 % (31-73) 84 % (31-73) Lymphocytes (%) (Auto) 7 % (24-48) 10 % (24-48) Monocytes (%) (Auto) 4 % (0-9) 7 % (0-9) Eosinophils (%) (Auto) 0 % (0-3) 0 % (0-3) Basophils (%) (Auto) 0 % (0-3) 0 % (0-3) Neutrophils # (Auto) 7.2 x10^3uL (1.8-7.7) 4.5 x10^3uL (1.8-7.7) Lymphocytes # (Auto) 0.5 x10^3/uL (1.0-4.8) 0.5 x10^3/uL (1.0-4.8) Monocytes # (Auto) 0.3 x10^3/uL (0.0-1.1) 0.4 x10^3/uL (0.0-1.1) Eosinophils # (Auto) 0.0 x10^3/uL (0.0-0.7) 0.0 x10^3/uL (0.0-0.7) Basophils # (Auto) 0.0 x10^3/uL (0.0-0.2) 0.0 x10^3/uL (0.0-0.2) Sodium Level 141 mmol/L (136-145) 142 mmol/L (136-145) Potassium Level 3.3 mmol/L (3.5-5.1) 3.4 mmol/L (3.5-5.1) Chloride Level 103 mmol/L (98-107) 107 mmol/L (98-107) Carbon Dioxide Level 27 mmol/L (21-32) 24 mmol/L (21-32) Anion Gap 11 (6-14) 11 (6-14) Blood Urea Nitrogen 13 mg/dL (8-26) 12 mg/dL (8-26) Creatinine 0.8 mg/dL (0.7-1.3) 0.6 mg/dL (0.7-1.3) Estimated GFR (Cockcroft-Gault) 99.6 138.9 BUN/Creatinine Ratio 16 (6-20) 20 (6-20) Glucose Level 204 mg/dL (70-99) 145 mg/dL (70-99) Calcium Level 7.4 mg/dL (8.5-10.1) 7.0 mg/dL (8.5-10.1) Total Bilirubin 0.8 mg/dL (0.2-1.0) 0.5 mg/dL (0.2-1.0) Aspartate Amino Transf (AST/SGOT) 18 U/L (15-37) 16 U/L (15-37) Alanine Aminotransferase (ALT/SGPT) 18 U/L (16-63) 17 U/L (16-63) Alkaline Phosphatase 70 U/L (46-116) 59 U/L (46-116) Total Protein 7.5 g/dL (6.4-8.2) 6.2 g/dL (6.4-8.2) Albumin 3.1 g/dL (3.4-5.0) 2.5 g/dL (3.4-5.0) Albumin/Globulin Ratio 0.7 (1.0-1.7) 0.7 (1.0-1.7) Vancomycin Level Trough 15.9 mcg/mL (10.0-20.0) Vancomycin Last Dose Date 07/18/18 Vancomycin Last Dose Time 0400 Laboratory Tests Test 07/18/18 09:10 07/18/18 15:30 07/19/18 04:01 07/19/18 04:27 White Blood Count 8.0 x10^3/uL (4.0-11.0) 5.4 x10^3/uL (4.0-11.0) Red Blood Count 2.97 x10^6/uL (4.30-5.70) 2.49 x10^6/uL (4.30-5.70) Hemoglobin 10.2 g/dL (13.0-17.5) 8.7 g/dL (13.0-17.5) Hematocrit 29.5 % (39.0-53.0) 24.9 % (39.0-53.0) Mean Corpuscular Volume 99 fL (79-100) 100 fL (79-100) Mean Corpuscular Hemoglobin 34 pg (25-35) 35 pg (25-35) Mean Corpuscular Hemoglobin Concent 35 g/dL (31-37) 35 g/dL (31-37) Red Cell Distribution Width 22.6 % (11.5-14.5) 22.0 % (11.5-14.5) Platelet Count 129 x10^3/uL (140-400) 118 x10^3/uL (140-400) Neutrophils (%) (Auto) 90 % (31-73) 84 % (31-73) Lymphocytes (%) (Auto) 7 % (24-48) 10 % (24-48) Monocytes (%) (Auto) 4 % (0-9) 7 % (0-9) Eosinophils (%) (Auto) 0 % (0-3) 0 % (0-3) Basophils (%) (Auto) 0 % (0-3) 0 % (0-3) Neutrophils # (Auto) 7.2 x10^3uL (1.8-7.7) 4.5 x10^3uL (1.8-7.7) Lymphocytes # (Auto) 0.5 x10^3/uL (1.0-4.8) 0.5 x10^3/uL (1.0-4.8) Monocytes # (Auto) 0.3 x10^3/uL (0.0-1.1) 0.4 x10^3/uL (0.0-1.1) Eosinophils # (Auto) 0.0 x10^3/uL (0.0-0.7) 0.0 x10^3/uL (0.0-0.7) Basophils # (Auto) 0.0 x10^3/uL (0.0-0.2) 0.0 x10^3/uL (0.0-0.2) Sodium Level 141 mmol/L (136-145) 142 mmol/L (136-145) Potassium Level 3.3 mmol/L (3.5-5.1) 3.4 mmol/L (3.5-5.1) Chloride Level 103 mmol/L (98-107) 107 mmol/L (98-107) Carbon Dioxide Level 27 mmol/L (21-32) 24 mmol/L (21-32) Anion Gap 11 (6-14) 11 (6-14) Blood Urea Nitrogen 13 mg/dL (8-26) 12 mg/dL (8-26) Creatinine 0.8 mg/dL (0.7-1.3) 0.6 mg/dL (0.7-1.3) Estimated GFR (Cockcroft-Gault) 99.6 138.9 BUN/Creatinine Ratio 16 (6-20) 20 (6-20) Glucose Level 204 mg/dL (70-99) 145 mg/dL (70-99) Calcium Level 7.4 mg/dL (8.5-10.1) 7.0 mg/dL (8.5-10.1) Total Bilirubin 0.8 mg/dL (0.2-1.0) 0.5 mg/dL (0.2-1.0) Aspartate Amino Transf (AST/SGOT) 18 U/L (15-37) 16 U/L (15-37) Alanine Aminotransferase (ALT/SGPT) 18 U/L (16-63) 17 U/L (16-63) Alkaline Phosphatase 70 U/L (46-116) 59 U/L (46-116) Total Protein 7.5 g/dL (6.4-8.2) 6.2 g/dL (6.4-8.2) Albumin 3.1 g/dL (3.4-5.0) 2.5 g/dL (3.4-5.0) Albumin/Globulin Ratio 0.7 (1.0-1.7) 0.7 (1.0-1.7) Vancomycin Level Trough 15.9 mcg/mL (10.0-20.0) Vancomycin Last Dose Date 07/18/18 Vancomycin Last Dose Time 0400 Microbiology 07/15/18 Blood Culture - Preliminary, Resulted NO GROWTH AFTER 3 DAYS 07/15/18 Anaerobic/Aerobic Culture, Resulted Pending 07/15/18 Anaerobic Culture Result 1 (ANDRY), Resulted Pending 07/15/18 Aerobic Culture - Preliminary, Resulted 07/15/18 Aerobic Culture Result 1 (ANDRY) - Preliminary, Resulted 07/15/18 Gram Stain - Final, Resulted 07/15/18 Gram Stain Result 1 (ANDRY) - Final, Resulted 07/15/18 Gram Stain Result 2 (ANDRY) - Final, Resulted Medications Current Medications Sodium Chloride 1,000 ml @ 1,000 mls/hr 1X ONCE IV Last administered on at 14:40; Start 07/15/18 at 14:00; Stop 07/15/18 at 14:59; Status DC Cefepime HCl 1 gm/ Dextrose 50 ml @ 100 mls/hr 1X STAT IV ; Start 07/15/18 at 13:55; Stop 07/15/18 at 14:24; Status UNV Vancomycin HCl (Vanco Per Pharmacy) 1 each PRN DAILY PRN MC SEE COMMENTS Last administered on 07/18/18at 15:58; Start 07/15/18 at 14:00 Cefepime HCl (Maxipime) 1 gm 1X ONCE IVP Last administered on 07/15/18at 15:47 ; Start 07/15/18 at 14:15; Stop 07/15/18 at 14:18; Status DC Vancomycin HCl 2 gm/Sodium Chloride 500 ml @ 250 mls/hr 1X ONCE IV Last administered on 07/15/18at 15:50; Start 07/15/18 at 14:30; Stop 07/15/18 at 16:29 ; Status DC Acetaminophen (Tylenol) 1,000 mg 1X ONCE PO Last administered on 07/15/18at 14: 40; Start 07/15/18 at 14:15; Stop 07/15/18 at 14:18; Status DC Fentanyl Citrate (Fentanyl 2ml Vial) 50 mcg 1X ONCE IV Last administered on at 15:01; Start 07/15/18 at 15:00; Stop 07/15/18 at 15:01; Status DC Ondansetron HCl (Zofran) 4 mg 1X ONCE IV Last administered on 07/15/18at 15:00 ; Start 07/15/18 at 15:00; Stop 07/15/18 at 15:01; Status DC Ketorolac Tromethamine (Toradol 15mg Vial) 15 mg 1X ONCE IV Last administered on 07/15/18at 15:46; Start 07/15/18 at 15:30; Stop 07/15/18 at 15:36; Status DC Fentanyl Citrate (Fentanyl 2ml Vial) 50 mcg 1X ONCE IV Last administered on at 15:43; Start 07/15/18 at 15:30; Stop 07/15/18 at 15:36; Status DC Sodium Chloride 1,000 ml @ 1,000 mls/hr 1X ONCE IV Last administered on at 16:18; Start 07/15/18 at 15:30; Stop 07/15/18 at 16:29; Status DC Metoclopramide HCl (Reglan Vial) 10 mg 1X ONCE IV Last administered on at 15:44; Start 07/15/18 at 15:30; Stop 07/15/18 at 15:36; Status DC Diphenhydramine HCl (Benadryl) 25 mg 1X ONCE IVP Last administered on at 15:44; Start 07/15/18 at 15:30; Stop 07/15/18 at 15:36; Status DC Lidocaine HCl 20 ml 1X ONCE IJ Last administered on 07/15/18at 17:41; Start at 16:15; Stop 07/15/18 at 16:18; Status DC Lorazepam (Ativan) 1 mg 1X ONCE IV Last administered on 07/15/18at 16:58; Start 07/15/18 at 16:15; Stop 07/15/18 at 16:18; Status DC Lidocaine HCl (Xylocaine-Mpf 2% Vial) 2 ml STK-MED ONCE .ROUTE ; Start 07/15/18 at 16:31; Stop 07/15/18 at 16:33; Status DC Cefepime HCl 2 gm/ Dextrose 100 ml @ 200 mls/hr Q8HRS IV ; Start 07/15/18 at 22 :00; Status UNV Sodium Chloride 1,000 ml @ 125 mls/hr Q8H IV Last administered on 07/18/18at 20 :21; Start 07/15/18 at 16:45 Fentanyl Citrate (Fentanyl 2ml Vial) 50 mcg PRN Q2HR PRN IV PAIN Last administered on 07/16/18at 01:57; Start 07/15/18 at 17:00; Stop 07/16/18 at 16:59 ; Status DC Sodium Chloride 1,000 ml @ 125 mls/hr Q8H IV ; Start 07/15/18 at 16:55; Stop 07/16/18 at 04:17; Status DC Morphine Sulfate (Morphine Sulfate) 6 mg 1X ONCE IV Last administered on at 17:57; Start 07/15/18 at 17:45; Stop 07/15/18 at 18:05; Status DC Trimethoprim/ Sulfamethoxazole 20 ml/Dextrose 500 ml @ 333.333 mls/hr Q8HRS IV ; Start 07/15/18 at 19:00; Stop 07/15/18 at 19:46; Status DC Acyclovir Sodium 730 mg/Dextrose 264.6 ml @ 264.6 mls/ hr 1X ONCE IV Last administered on 07/15/18at 18:04; Start 07/15/18 at 18:00; Stop 07/15/18 at 18:59 ; Status DC Dextrose 20 ml @ 200 mls/hr Q8HRS IV ; Start 07/15/18 at 19:00; Stop 07/15/18 at 19:46; Status DC Cefepime HCl (Maxipime) 2 gm Q8HRS IVP Last administered on 07/19/18 05:07; Start 07/15/18 at 22:00 Vancomycin HCl 1.75 gm/Sodium Chloride 500 ml @ 250 mls/hr Q12H IV Last administered on 07/17/18 04:08; Start 07/16/18 at 04:00; Stop 07/17/18 at 04:10 ; Status DC Vancomycin HCl (Vancomycin Trough Level) 1 each 1X ONCE MC Last administered on 07/17/18at 03:30; Start 07/17/18 at 03:30; Stop 07/17/18 at 03:31; Status DC Ampicillin Sodium 2 gm/Sodium Chloride 100 ml @ 200 mls/hr Q4HRS IV Last administered on 07/19/18 04:08; Start 07/15/18 at 20:00 Dexamethasone Sodium Phosphate (Decadron) 8 mg Q8HRS IV Last administered on 05:08; Start 07/15/18 at 22:00 Allopurinol (Zyloprim) 300 mg DAILY PO Last administered on 07/18/18 08:31; Start 07/16/18 at 09:00 Aspirin (Debbie Aspirin) 325 mg DAILY PO Last administered on 07/18/18 08:31; Start 07/16/18 at 09:00 Tamsulosin HCl (Flomax) 0.4 mg QHS PO Last administered on 07/18/18 20:19; Start 07/16/18 at 21:00 Acyclovir (Zovirax) 800 mg BID PO Last administered on 07/18/18 20:18; Start 07/16/18 at 09:00 Citalopram Hydrobromide (CeleXA) 20 mg DAILY PO Last administered on 07/18/18 08:32; Start 07/16/18 at 09:00 Gabapentin (Neurontin) 300 mg BID PO Last administered on 07/18/18 20:19; Start 07/16/18 at 09:00 Pantoprazole Sodium (Protonix) 40 mg DAILYAC PO Last administered on 07/18/18 08:32; Start 07/16/18 at 07:30 Labetalol HCl (Normodyne Iv Push) 20 mg PRN Q2HR PRN IVP HYPERTENSION, SEE COMMENTS; Start 07/15/18 at 22:15; Stop 07/18/18 at 08:48; Status DC Acetaminophen/ Hydrocodone Bitart (Lortab 5/325) 1 tab PRN Q4HRS PRN PO SEVERE PAIN; Start 07/16/18 at 12:15 Acetaminophen (Tylenol) 650 mg PRN Q6HRS PRN PO FEVER Last administered on 07/18at 20:30; Start 07/16/18 at 12:30 Ondansetron HCl (Zofran) 4 mg PRN Q6HRS PRN IV NAUSEA/VOMITING 1ST CHOICE; Start 07/16/18 at 12:30 Morphine Sulfate (Morphine Sulfate) 2 mg PRN Q2HR PRN IV MODERATE TO SEVERE PAIN; Start 07/16/18 at 12:30 Tramadol HCl (Ultram) 50 mg PRN Q6HRS PRN PO MILD TO MODERATE PAIN; Start 07/16 at 12:30 Docusate Sodium (Colace) 100 mg PRN DAILY PRN PO HARD STOOLS; Start 07/16/18 at 12:30 Vancomycin HCl 2 gm/Sodium Chloride 500 ml @ 250 mls/hr Q12H IV Last administered on 07/19/18at 05:08; Start 07/17/18 at 16:00 Vancomycin HCl (Vancomycin Trough Level) 1 each 1X ONCE MC Last administered on 07/18/18at 15:30; Start 07/18/18 at 15:30; Stop 07/18/18 at 15:31; Status DC Diphenhydramine HCl (Benadryl) 25 mg PRN QHS PRN PO INSOMNIA Last administered on 07/18/18at 22:13; Start 07/17/18 at 23:00 Trazodone HCl (Desyrel) 50 mg PRN QHS PRN PO INSOMNIA Last administered on 07/18at 22:14; Start 07/17/18 at 23:00 Losartan Potassium (Cozaar) 50 mg DAILY PO Last administered on 07/18/18at 15:05 ; Start 07/18/18 at 09:00 Labetalol HCl (Normodyne Iv Push) 10 mg PRN Q3HRS PRN IVP HYPERTENSION, SEE COMMENTS; Start 07/18/18 at 08:45 Active Scripts Active Levaquin (Levofloxacin) 500 Mg Tablet 500 Mg PO DAILY06 Flomax (Tamsulosin Hcl) 0.4 Mg Cap.er.24h 0.4 Mg PO QHS Reported Revlimid (Lenalidomide) 25 Mg Capsule 25 Mg PO Gabapentin 300 Mg Capsule 300 Mg PO BID Sulfamethoxazole-Tmp Ds Tablet (Sulfamethoxazole/Trimethoprim) 1 Each Tablet 1 Tab PO BID Dexamethasone 4 Mg Tablet 40 Mg PO WEEKLY Acyclovir 800 Mg Tablet 1 Tab PO BID Aspirin 325 Mg Tablet 1 Tab PO DAILY Hyzaar 100-25 Tablet (Losartan/Hydrochlorothiazide) 1 Each Tablet 1 Each PO DAILY Hydrocodone-Apap 5-325 (Hydrocodone Bit/Acetaminophen) 1 Each Tablet 1 Tab PO PRN Q6HRS PRN Escitalopram Oxalate 10 Mg Tablet 10 Mg PO DAILY Flonase Allergy Relief (Fluticasone Propionate) 9.9 Ml L[place].susp 2 Sprays NS DAILY Meloxicam 7.5 Mg Tablet 7.5 Mg PO DAILY Prilosec Otc (Omeprazole Magnesium) 20 Mg Tablet.dr 40 Mg PO DAILY Allopurinol 300 Mg Tablet 300 Mg PO DAILY Vitals/I & O Vital Sign - Last 24 Hours 07/18/18 07/18/18 07/18/18 07/18/18 11:00 15:00 15:05 19:35 Temp 98.6 98.6 98.2 98.6 98.6 98.2 Pulse 85 82 85 89 Resp 18 18 18 B/P (MAP) 138/99 (112) 149/88 (108) 138/99 158/101 (120) Pulse Ox 98 99 97 O2 Delivery Room Air Room Air Room Air 07/18/18 07/18/18 07/19/18 07/19/18 20:00 23:01 03:43 07:55 Temp 98.8 97.6 97.5 98.8 97.6 97.5 Pulse 91 87 91 Resp 18 16 17 B/P (MAP) 147/82 (103) 152/94 (113) 175/103 (127) Pulse Ox 98 98 99 O2 Delivery Room Air Room Air Room Air Room Air Intake and Output 07/18/18 07/18/18 07/19/18 15:00 23:00 07:00 Intake Total 1820 ml 900 ml Balance 1820 ml 900 ml Nutrition Consultation Dietary Evaluation: Recommendations by RD: Increase Calorie Intake Comments: continue w/regular diet as ordered if PO intake is not consistently >50% of meals, recommend adding oral supplements to improve calorie/protein intake Expected Outcomes/Goals: PO intake to meet >75% est needs Malnutrition Findings: Food and Nutrition Intake (Mod: <75% est energy req 7days Weight Status: Obese CRISSY BRYSON MD Jul 19, 2018 08:44
[2018-07-19] MEDS: PANTOPRAZOLE 40 MG TABLET.DR. PO SCH (08:51)
[2018-07-19] MEDS: IV NORMAL SALINE 1000ML BAG 1,000 ML IV SCH ×2 (08:52→16:45)
[2018-07-19] MEDS: ASPIRIN 325 MG TABLET PO SCH (08:52)
[2018-07-19] MEDS: CITALOPRAM 20 MG TABLET. PO SCH (08:53)
[2018-07-19] MEDS: GABAPENTIN 300 MG CAPSULE. PO SCH ×2 (08:53→20:32)
[2018-07-19] MEDS: LOSARTAN POTASSIUM 50 MG TABLET. PO SCH (08:53)
[2018-07-19] MEDS: ALLOPURINOL 300 MG TABLET. PO SCH (08:54)
[2018-07-19] MEDS: ACYCLOVIR 200 MG CAPSULE. PO SCH ×2 (08:54→20:32)
--- NOTE | 2018-07-19 09:11 | PDOC ---
PROGRESS NOTES Subjective Subjective HPI - f/u of Multiple myeloma, IgA kappa type, diagnosed by bone marrow biopsy on 06/25/2018. ROS - no fever Objective Objective Vital Signs Date Time Temp Pulse Resp B/P (MAP) Pulse Ox O2 Delivery O2 Flow Rate FiO2 07/19/18 08:53 91 175/103 07/19/18 07:55 97.5 17 99 Room Air 97.5 07/18/18 08:00 2.0 Intake and Output 07/19/18 07:00 Intake Total 2720 ml Balance 2720 ml Intake Oral 2720 ml # Voids 6 Physical Exam Heart: Normal S1, Normal S2 General: Alert, Oriented X3 Lungs: Clear to auscultation Neuro: Normal speech Psych/Mental Status: Mental status NL Assessment Assessment Problems Medical Problems: (1) Altered mental status Status: Acute IMPRESSION AND PLAN: 1. Multiple myeloma, IgA kappa type, diagnosed by bone marrow biopsy on 06/25/2018. He received Decadron 40 mg daily for 4 days from 06/25/2018. After confirmation of diagnosis, he was started on chemotherapy with Velcade, Decadron and Revlimid from 07/06/2018. Revlimid was not available until 07/08/2018 and he took only one dose on 07/08/2018. He was subsequently hospitalized and Revlimid was held. He received cycle #1, day #4 of Velcade on 07/09/2018. He received cycle #1 day #8 of Velcade on 07/13/2018 along with Decadron 40 mg on 07/13/2018. He resumed Revlimid on 07/13/2018 and he also received a dose on 07/14/2018. He developed fever and confusion on 07/15/2018 and hence chemotherapy was again held. He was admitted to [facility] with suspected meningitis and he is on IV antibiotics per ID. I discussed with Dr. Puneet Johnson and with Dr. Georgina Cerna. I will plan to hold further chemotherapy until the underlying infection is resolved. His myeloma is under good control as his total protein is significantly improved. 2. Fever. Appreciate Infectious Disease consultation and management. Improved, he feels better. 3. Meningitis suspected as the cerebrospinal fluid revealed evidence of elevated WBC count of 4000. Management per Infectious Diseases. 4. Anemia. Continue to monitor. Plan transfusion if hemoglobin drops to below 7. 5. CT scan of the head on 07/15/2018 is negative. Nonspecific white matter changes seen bilaterally, which may be due to chronic small vessel ischemic disease. Comment Review of Relevant I have reviewed the following items cristina (where applicable) has been applied. Labs Laboratory Tests Test 07/18/18 09:10 07/18/18 15:30 07/19/18 04:01 07/19/18 04:27 White Blood Count 8.0 x10^3/uL (4.0-11.0) 5.4 x10^3/uL (4.0-11.0) Red Blood Count 2.97 x10^6/uL (4.30-5.70) 2.49 x10^6/uL (4.30-5.70) Hemoglobin 10.2 g/dL (13.0-17.5) 8.7 g/dL (13.0-17.5) Hematocrit 29.5 % (39.0-53.0) 24.9 % (39.0-53.0) Mean Corpuscular Volume 99 fL (79-100) 100 fL (79-100) Mean Corpuscular Hemoglobin 34 pg (25-35) 35 pg (25-35) Mean Corpuscular Hemoglobin Concent 35 g/dL (31-37) 35 g/dL (31-37) Red Cell Distribution Width 22.6 % (11.5-14.5) 22.0 % (11.5-14.5) Platelet Count 129 x10^3/uL (140-400) 118 x10^3/uL (140-400) Neutrophils (%) (Auto) 90 % (31-73) 84 % (31-73) Lymphocytes (%) (Auto) 7 % (24-48) 10 % (24-48) Monocytes (%) (Auto) 4 % (0-9) 7 % (0-9) Eosinophils (%) (Auto) 0 % (0-3) 0 % (0-3) Basophils (%) (Auto) 0 % (0-3) 0 % (0-3) Neutrophils # (Auto) 7.2 x10^3uL (1.8-7.7) 4.5 x10^3uL (1.8-7.7) Lymphocytes # (Auto) 0.5 x10^3/uL (1.0-4.8) 0.5 x10^3/uL (1.0-4.8) Monocytes # (Auto) 0.3 x10^3/uL (0.0-1.1) 0.4 x10^3/uL (0.0-1.1) Eosinophils # (Auto) 0.0 x10^3/uL (0.0-0.7) 0.0 x10^3/uL (0.0-0.7) Basophils # (Auto) 0.0 x10^3/uL (0.0-0.2) 0.0 x10^3/uL (0.0-0.2) Sodium Level 141 mmol/L (136-145) 142 mmol/L (136-145) Potassium Level 3.3 mmol/L (3.5-5.1) 3.4 mmol/L (3.5-5.1) Chloride Level 103 mmol/L (98-107) 107 mmol/L (98-107) Carbon Dioxide Level 27 mmol/L (21-32) 24 mmol/L (21-32) Anion Gap 11 (6-14) 11 (6-14) Blood Urea Nitrogen 13 mg/dL (8-26) 12 mg/dL (8-26) Creatinine 0.8 mg/dL (0.7-1.3) 0.6 mg/dL (0.7-1.3) Estimated GFR (Cockcroft-Gault) 99.6 138.9 BUN/Creatinine Ratio 16 (6-20) 20 (6-20) Glucose Level 204 mg/dL (70-99) 145 mg/dL (70-99) Calcium Level 7.4 mg/dL (8.5-10.1) 7.0 mg/dL (8.5-10.1) Total Bilirubin 0.8 mg/dL (0.2-1.0) 0.5 mg/dL (0.2-1.0) Aspartate Amino Transf (AST/SGOT) 18 U/L (15-37) 16 U/L (15-37) Alanine Aminotransferase (ALT/SGPT) 18 U/L (16-63) 17 U/L (16-63) Alkaline Phosphatase 70 U/L (46-116) 59 U/L (46-116) Total Protein 7.5 g/dL (6.4-8.2) 6.2 g/dL (6.4-8.2) Albumin 3.1 g/dL (3.4-5.0) 2.5 g/dL (3.4-5.0) Albumin/Globulin Ratio 0.7 (1.0-1.7) 0.7 (1.0-1.7) Vancomycin Level Trough 15.9 mcg/mL (10.0-20.0) Vancomycin Last Dose Date 07/18/18 Vancomycin Last Dose Time 0400 Laboratory Tests Test 07/18/18 09:10 07/18/18 15:30 07/19/18 04:01 07/19/18 04:27 White Blood Count 8.0 x10^3/uL (4.0-11.0) 5.4 x10^3/uL (4.0-11.0) Red Blood Count 2.97 x10^6/uL (4.30-5.70) 2.49 x10^6/uL (4.30-5.70) Hemoglobin 10.2 g/dL (13.0-17.5) 8.7 g/dL (13.0-17.5) Hematocrit 29.5 % (39.0-53.0) 24.9 % (39.0-53.0) Mean Corpuscular Volume 99 fL (79-100) 100 fL (79-100) Mean Corpuscular Hemoglobin 34 pg (25-35) 35 pg (25-35) Mean Corpuscular Hemoglobin Concent 35 g/dL (31-37) 35 g/dL (31-37) Red Cell Distribution Width 22.6 % (11.5-14.5) 22.0 % (11.5-14.5) Platelet Count 129 x10^3/uL (140-400) 118 x10^3/uL (140-400) Neutrophils (%) (Auto) 90 % (31-73) 84 % (31-73) Lymphocytes (%) (Auto) 7 % (24-48) 10 % (24-48) Monocytes (%) (Auto) 4 % (0-9) 7 % (0-9) Eosinophils (%) (Auto) 0 % (0-3) 0 % (0-3) Basophils (%) (Auto) 0 % (0-3) 0 % (0-3) Neutrophils # (Auto) 7.2 x10^3uL (1.8-7.7) 4.5 x10^3uL (1.8-7.7) Lymphocytes # (Auto) 0.5 x10^3/uL (1.0-4.8) 0.5 x10^3/uL (1.0-4.8) Monocytes # (Auto) 0.3 x10^3/uL (0.0-1.1) 0.4 x10^3/uL (0.0-1.1) Eosinophils # (Auto) 0.0 x10^3/uL (0.0-0.7) 0.0 x10^3/uL (0.0-0.7) Basophils # (Auto) 0.0 x10^3/uL (0.0-0.2) 0.0 x10^3/uL (0.0-0.2) Sodium Level 141 mmol/L (136-145) 142 mmol/L (136-145) Potassium Level 3.3 mmol/L (3.5-5.1) 3.4 mmol/L (3.5-5.1) Chloride Level 103 mmol/L (98-107) 107 mmol/L (98-107) Carbon Dioxide Level 27 mmol/L (21-32) 24 mmol/L (21-32) Anion Gap 11 (6-14) 11 (6-14) Blood Urea Nitrogen 13 mg/dL (8-26) 12 mg/dL (8-26) Creatinine 0.8 mg/dL (0.7-1.3) 0.6 mg/dL (0.7-1.3) Estimated GFR (Cockcroft-Gault) 99.6 138.9 BUN/Creatinine Ratio 16 (6-20) 20 (6-20) Glucose Level 204 mg/dL (70-99) 145 mg/dL (70-99) Calcium Level 7.4 mg/dL (8.5-10.1) 7.0 mg/dL (8.5-10.1) Total Bilirubin 0.8 mg/dL (0.2-1.0) 0.5 mg/dL (0.2-1.0) Aspartate Amino Transf (AST/SGOT) 18 U/L (15-37) 16 U/L (15-37) Alanine Aminotransferase (ALT/SGPT) 18 U/L (16-63) 17 U/L (16-63) Alkaline Phosphatase 70 U/L (46-116) 59 U/L (46-116) Total Protein 7.5 g/dL (6.4-8.2) 6.2 g/dL (6.4-8.2) Albumin 3.1 g/dL (3.4-5.0) 2.5 g/dL (3.4-5.0) Albumin/Globulin Ratio 0.7 (1.0-1.7) 0.7 (1.0-1.7) Vancomycin Level Trough 15.9 mcg/mL (10.0-20.0) Vancomycin Last Dose Date 07/18/18 Vancomycin Last Dose Time 0400 Microbiology 07/15/18 Blood Culture - Preliminary, Resulted NO GROWTH AFTER 3 DAYS 07/15/18 Anaerobic/Aerobic Culture, Resulted Pending 07/15/18 Anaerobic Culture Result 1 (ANDRY), Resulted Pending 07/15/18 Aerobic Culture - Preliminary, Resulted 07/15/18 Aerobic Culture Result 1 (ANDRY) - Preliminary, Resulted 07/15/18 Gram Stain - Final, Resulted 07/15/18 Gram Stain Result 1 (ANDRY) - Final, Resulted 07/15/18 Gram Stain Result 2 (ANDRY) - Final, Resulted Medications Current Medications Sodium Chloride 1,000 ml @ 1,000 mls/hr 1X ONCE IV Last administered on at 14:40; Start 07/15/18 at 14:00; Stop 07/15/18 at 14:59; Status DC Cefepime HCl 1 gm/ Dextrose 50 ml @ 100 mls/hr 1X STAT IV ; Start 07/15/18 at 13:55; Stop 07/15/18 at 14:24; Status UNV Vancomycin HCl (Vanco Per Pharmacy) 1 each PRN DAILY PRN MC SEE COMMENTS Last administered on 07/18/18at 15:58; Start 07/15/18 at 14:00 Cefepime HCl (Maxipime) 1 gm 1X ONCE IVP Last administered on 07/15/18at 15:47 ; Start 07/15/18 at 14:15; Stop 07/15/18 at 14:18; Status DC Vancomycin HCl 2 gm/Sodium Chloride 500 ml @ 250 mls/hr 1X ONCE IV Last administered on 07/15/18at 15:50; Start 07/15/18 at 14:30; Stop 07/15/18 at 16:29 ; Status DC Acetaminophen (Tylenol) 1,000 mg 1X ONCE PO Last administered on 07/15/18at 14: 40; Start 07/15/18 at 14:15; Stop 07/15/18 at 14:18; Status DC Fentanyl Citrate (Fentanyl 2ml Vial) 50 mcg 1X ONCE IV Last administered on at 15:01; Start 07/15/18 at 15:00; Stop 07/15/18 at 15:01; Status DC Ondansetron HCl (Zofran) 4 mg 1X ONCE IV Last administered on 07/15/18at 15:00 ; Start 07/15/18 at 15:00; Stop 07/15/18 at 15:01; Status DC Ketorolac Tromethamine (Toradol 15mg Vial) 15 mg 1X ONCE IV Last administered on 07/15/18at 15:46; Start 07/15/18 at 15:30; Stop 07/15/18 at 15:36; Status DC Fentanyl Citrate (Fentanyl 2ml Vial) 50 mcg 1X ONCE IV Last administered on at 15:43; Start 07/15/18 at 15:30; Stop 07/15/18 at 15:36; Status DC Sodium Chloride 1,000 ml @ 1,000 mls/hr 1X ONCE IV Last administered on at 16:18; Start 07/15/18 at 15:30; Stop 07/15/18 at 16:29; Status DC Metoclopramide HCl (Reglan Vial) 10 mg 1X ONCE IV Last administered on at 15:44; Start 07/15/18 at 15:30; Stop 07/15/18 at 15:36; Status DC Diphenhydramine HCl (Benadryl) 25 mg 1X ONCE IVP Last administered on at 15:44; Start 07/15/18 at 15:30; Stop 07/15/18 at 15:36; Status DC Lidocaine HCl 20 ml 1X ONCE IJ Last administered on 07/15/18at 17:41; Start at 16:15; Stop 07/15/18 at 16:18; Status DC Lorazepam (Ativan) 1 mg 1X ONCE IV Last administered on 07/15/18at 16:58; Start 07/15/18 at 16:15; Stop 07/15/18 at 16:18; Status DC Lidocaine HCl (Xylocaine-Mpf 2% Vial) 2 ml STK-MED ONCE .ROUTE ; Start 07/15/18 at 16:31; Stop 07/15/18 at 16:33; Status DC Cefepime HCl 2 gm/ Dextrose 100 ml @ 200 mls/hr Q8HRS IV ; Start 07/15/18 at 22 :00; Status UNV Sodium Chloride 1,000 ml @ 125 mls/hr Q8H IV Last administered on 07/19/18at 08 :52; Start 07/15/18 at 16:45 Fentanyl Citrate (Fentanyl 2ml Vial) 50 mcg PRN Q2HR PRN IV PAIN Last administered on 07/16/18at 01:57; Start 07/15/18 at 17:00; Stop 07/16/18 at 16:59 ; Status DC Sodium Chloride 1,000 ml @ 125 mls/hr Q8H IV ; Start 07/15/18 at 16:55; Stop 07/16/18 at 04:17; Status DC Morphine Sulfate (Morphine Sulfate) 6 mg 1X ONCE IV Last administered on at 17:57; Start 07/15/18 at 17:45; Stop 07/15/18 at 18:05; Status DC Trimethoprim/ Sulfamethoxazole 20 ml/Dextrose 500 ml @ 333.333 mls/hr Q8HRS IV ; Start 07/15/18 at 19:00; Stop 07/15/18 at 19:46; Status DC Acyclovir Sodium 730 mg/Dextrose 264.6 ml @ 264.6 mls/ hr 1X ONCE IV Last administered on 07/15/18at 18:04; Start 07/15/18 at 18:00; Stop 07/15/18 at 18:59 ; Status DC Dextrose 20 ml @ 200 mls/hr Q8HRS IV ; Start 07/15/18 at 19:00; Stop 07/15/18 at 19:46; Status DC Cefepime HCl (Maxipime) 2 gm Q8HRS IVP Last administered on 07/19/18 05:07; Start 07/15/18 at 22:00 Vancomycin HCl 1.75 gm/Sodium Chloride 500 ml @ 250 mls/hr Q12H IV Last administered on 07/17/18 04:08; Start 07/16/18 at 04:00; Stop 07/17/18 at 04:10 ; Status DC Vancomycin HCl (Vancomycin Trough Level) 1 each 1X ONCE MC Last administered on 07/17/18at 03:30; Start 07/17/18 at 03:30; Stop 07/17/18 at 03:31; Status DC Ampicillin Sodium 2 gm/Sodium Chloride 100 ml @ 200 mls/hr Q4HRS IV Last administered on 07/19/18 08:52; Start 07/15/18 at 20:00 Dexamethasone Sodium Phosphate (Decadron) 8 mg Q8HRS IV Last administered on 05:08; Start 07/15/18 at 22:00 Allopurinol (Zyloprim) 300 mg DAILY PO Last administered on 07/19/18 08:54; Start 07/16/18 at 09:00 Aspirin (Debbie Aspirin) 325 mg DAILY PO Last administered on 07/19/18 08:52; Start 07/16/18 at 09:00 Tamsulosin HCl (Flomax) 0.4 mg QHS PO Last administered on 07/18/18at 20:19; Start 07/16/18 at 21:00 Acyclovir (Zovirax) 800 mg BID PO Last administered on 07/19/18 08:54; Start 07/16/18 at 09:00 Citalopram Hydrobromide (CeleXA) 20 mg DAILY PO Last administered on 07/19/18 08:53; Start 07/16/18 at 09:00 Gabapentin (Neurontin) 300 mg BID PO Last administered on 07/19/18 08:53; Start 07/16/18 at 09:00 Pantoprazole Sodium (Protonix) 40 mg DAILYAC PO Last administered on 07/19/18 08:51; Start 07/16/18 at 07:30 Labetalol HCl (Normodyne Iv Push) 20 mg PRN Q2HR PRN IVP HYPERTENSION, SEE COMMENTS; Start 07/15/18 at 22:15; Stop 07/18/18 at 08:48; Status DC Acetaminophen/ Hydrocodone Bitart (Lortab 5/325) 1 tab PRN Q4HRS PRN PO SEVERE PAIN; Start 07/16/18 at 12:15 Acetaminophen (Tylenol) 650 mg PRN Q6HRS PRN PO FEVER Last administered on 07/18at 20:30; Start 07/16/18 at 12:30 Ondansetron HCl (Zofran) 4 mg PRN Q6HRS PRN IV NAUSEA/VOMITING 1ST CHOICE; Start 07/16/18 at 12:30 Morphine Sulfate (Morphine Sulfate) 2 mg PRN Q2HR PRN IV MODERATE TO SEVERE PAIN; Start 07/16/18 at 12:30 Tramadol HCl (Ultram) 50 mg PRN Q6HRS PRN PO MILD TO MODERATE PAIN; Start 07/16 at 12:30 Docusate Sodium (Colace) 100 mg PRN DAILY PRN PO HARD STOOLS; Start 07/16/18 at 12:30 Vancomycin HCl 2 gm/Sodium Chloride 500 ml @ 250 mls/hr Q12H IV Last administered on 07/19/18at 05:08; Start 07/17/18 at 16:00 Vancomycin HCl (Vancomycin Trough Level) 1 each 1X ONCE MC Last administered on 07/18/18at 15:30; Start 07/18/18 at 15:30; Stop 07/18/18 at 15:31; Status DC Diphenhydramine HCl (Benadryl) 25 mg PRN QHS PRN PO INSOMNIA Last administered on 07/18/18at 22:13; Start 07/17/18 at 23:00 Trazodone HCl (Desyrel) 50 mg PRN QHS PRN PO INSOMNIA Last administered on 07/18at 22:14; Start 07/17/18 at 23:00 Losartan Potassium (Cozaar) 50 mg DAILY PO Last administered on 07/19/18at 08:53 ; Start 07/18/18 at 09:00 Labetalol HCl (Normodyne Iv Push) 10 mg PRN Q3HRS PRN IVP HYPERTENSION, SEE COMMENTS; Start 07/18/18 at 08:45 Active Scripts Active Levaquin (Levofloxacin) 500 Mg Tablet 500 Mg PO DAILY06 Flomax (Tamsulosin Hcl) 0.4 Mg Cap.er.24h 0.4 Mg PO QHS Reported Revlimid (Lenalidomide) 25 Mg Capsule 25 Mg PO Gabapentin 300 Mg Capsule 300 Mg PO BID Sulfamethoxazole-Tmp Ds Tablet (Sulfamethoxazole/Trimethoprim) 1 Each Tablet 1 Tab PO BID Dexamethasone 4 Mg Tablet 40 Mg PO WEEKLY Acyclovir 800 Mg Tablet 1 Tab PO BID Aspirin 325 Mg Tablet 1 Tab PO DAILY Hyzaar 100-25 Tablet (Losartan/Hydrochlorothiazide) 1 Each Tablet 1 Each PO DAILY Hydrocodone-Apap 5-325 (Hydrocodone Bit/Acetaminophen) 1 Each Tablet 1 Tab PO PRN Q6HRS PRN Escitalopram Oxalate 10 Mg Tablet 10 Mg PO DAILY Flonase Allergy Relief (Fluticasone Propionate) 9.9 Ml Pony.susp 2 Sprays NS DAILY Meloxicam 7.5 Mg Tablet 7.5 Mg PO DAILY Prilosec Otc (Omeprazole Magnesium) 20 Mg Tablet.dr 40 Mg PO DAILY Allopurinol 300 Mg Tablet 300 Mg PO DAILY Vitals/I & O Vital Sign - Last 24 Hours 07/18/18 07/18/18 07/18/18 07/18/18 11:00 15:00 15:05 19:35 Temp 98.6 98.6 98.2 98.6 98.6 98.2 Pulse 85 82 85 89 Resp 18 18 18 B/P (MAP) 138/99 (112) 149/88 (108) 138/99 158/101 (120) Pulse Ox 98 99 97 O2 Delivery Room Air Room Air Room Air 07/18/18 07/18/18 07/19/18 07/19/18 20:00 23:01 03:43 07:55 Temp 98.8 97.6 97.5 98.8 97.6 97.5 Pulse 91 87 91 Resp 18 16 17 B/P (MAP) 147/82 (103) 152/94 (113) 175/103 (127) Pulse Ox 98 98 99 O2 Delivery Room Air Room Air Room Air Room Air 07/19/18 08:53 Pulse 91 B/P (MAP) 175/103 Intake and Output 07/18/18 07/18/18 07/19/18 15:00 23:00 07:00 Intake Total 1820 ml 900 ml Balance 1820 ml 900 ml Nutrition Consultation Dietary Evaluation: Recommendations by RD: Increase Calorie Intake Comments: continue w/regular diet as ordered if PO intake is not consistently >50% of meals, recommend adding oral supplements to improve calorie/protein intake Expected Outcomes/Goals: PO intake to meet >75% est needs Malnutrition Findings: Food and Nutrition Intake (Mod: <75% est energy req 7days Weight Status: Obese PHILLIP FUNEZ MD Jul 19, 2018 09:11
--- NOTE | 2018-07-19 10:11 | PDOC ---
Infectious Disease Note Subjective: Subjective pt says has been improving slowly since sat has some itching on the back since the gb surgery ,no rash No fever last 24 hours Chronic visual changes Denies VALENZUELA/photophobia/chills/sweats/N/V/SOA ROS: ROS Negative except for above. Vital Signs: Vital Signs Vital Signs Date Time Temp Pulse Resp B/P (MAP) Pulse Ox O2 Delivery O2 Flow Rate FiO2 07/19/18 08:53 91 175/103 07/19/18 07:55 97.5 17 99 Room Air 97.5 07/18/18 08:00 2.0 Physical Exam: PHYSICAL EXAM GENERAL: Propped up in bed, alert, ambulant in room in NAD HENT: PERRL. Conjunctivae pale. Oral cavity, pharynx pink and moist. Sinuses nontender NECK: Supple LUNGS: Clear CV: S1, S2 ABDOMEN: Soft, NT EXT: No gross edema or cyanosis SKIN: warm without rash PAGE DESIGNER: Alert, responds appropriately, nonfocal PIV Medications: Inpatient Meds: Current Medications Medications (Trade) Dose Ordered Sig/Miguelina Start Time Stop Time Status Last Admin Dose Admin Acetaminophen (Tylenol) 650 mg PRN Q6HRS PRN 07/16/18 12:30 07/18/18 20:30 650 MG Acetaminophen/ Hydrocodone Bitart (Lortab 5/325) 1 tab PRN Q4HRS PRN 07/16/18 12:15 Acyclovir (Zovirax) 800 mg BID 07/16/18 09:00 07/19/18 08:54 800 MG Acyclovir Sodium 730 mg/Dextrose 264.6 ml @ 264.6 mls/ hr 1X ONCE 07/15/18 18:00 07/15/18 18:59 DC 07/15/18 18:04 264.6 MLS/HR Allopurinol (Zyloprim) 300 mg DAILY 07/16/18 09:00 07/19/18 08:54 300 MG Ampicillin Sodium 2 gm/Sodium Chloride 100 ml @ 200 mls/hr Q4HRS 07/15/18 20:00 07/19/18 08:52 200 MLS/HR Aspirin (Debbie Aspirin) 325 mg DAILY 07/16/18 09:00 07/19/18 08:52 325 MG Cefepime HCl (Maxipime) 2 gm Q8HRS 07/15/18 22:00 07/19/18 05:07 2 GM Cefepime HCl 1 gm/ Dextrose 50 ml @ 100 mls/hr 1X STAT 07/15/18 13:55 07/15/18 14:24 UNV Cefepime HCl 2 gm/ Dextrose 100 ml @ 200 mls/hr Q8HRS 07/15/18 22:00 UNV Citalopram Hydrobromide (CeleXA) 20 mg DAILY 07/16/18 09:00 07/19/18 08:53 20 MG Dexamethasone Sodium Phosphate (Decadron) 8 mg Q8HRS 07/15/18 22:00 07/19/18 05:08 8 MG Dextrose 20 ml @ 200 mls/hr Q8HRS 07/15/18 19:00 07/15/18 19:46 DC Diphenhydramine HCl (Benadryl) 25 mg PRN QHS PRN 07/17/18 23:00 07/18/18 22:13 25 MG Docusate Sodium (Colace) 100 mg PRN DAILY PRN 07/16/18 12:30 Fentanyl Citrate (Fentanyl 2ml Vial) 50 mcg PRN Q2HR PRN 07/15/18 17:00 07/16/18 16:59 DC 07/16/18 01:57 50 MCG Gabapentin (Neurontin) 300 mg BID 07/16/18 09:00 07/19/18 08:53 300 MG Ketorolac Tromethamine (Toradol 15mg Vial) 15 mg 1X ONCE 07/15/18 15:30 07/15/18 15:36 DC 07/15/18 15:46 15 MG Labetalol HCl (Normodyne Iv Push) 10 mg PRN Q3HRS PRN 07/18/18 08:45 Lidocaine HCl (Xylocaine-Mpf 2% Vial) 2 ml STK-MED ONCE 07/15/18 16:31 07/15/18 16:33 DC Lorazepam (Ativan) 1 mg 1X ONCE 07/15/18 16:15 07/15/18 16:18 DC 07/15/18 16:58 1 MG Losartan Potassium (Cozaar) 50 mg DAILY 07/18/18 09:00 07/19/18 08:53 50 MG Metoclopramide HCl (Reglan Vial) 10 mg 1X ONCE 07/15/18 15:30 07/15/18 15:36 DC 07/15/18 15:44 10 MG Morphine Sulfate (Morphine Sulfate) 2 mg PRN Q2HR PRN 07/16/18 12:30 Ondansetron HCl (Zofran) 4 mg PRN Q6HRS PRN 07/16/18 12:30 Pantoprazole Sodium (Protonix) 40 mg DAILYAC 07/16/18 07:30 07/19/18 08:51 40 MG Sodium Chloride 1,000 ml @ 125 mls/hr Q8H 07/15/18 16:55 07/16/18 04:17 DC Tamsulosin HCl (Flomax) 0.4 mg QHS 07/16/18 21:00 07/18/18 20:19 0.4 MG Tramadol HCl (Ultram) 50 mg PRN Q6HRS PRN 07/16/18 12:30 Trazodone HCl (Desyrel) 50 mg PRN QHS PRN 07/17/18 23:00 07/18/18 22:14 50 MG Trimethoprim/ Sulfamethoxazole 20 ml/Dextrose 500 ml @ 333.333 mls/hr Q8HRS 07/15/18 19:00 07/15/18 19:46 DC Vancomycin HCl (Vanco Per Pharmacy) 1 each PRN DAILY PRN 07/15/18 14:00 07/18/18 15:58 1 EACH Vancomycin HCl (Vancomycin Trough Level) 1 each 1X ONCE 07/18/18 15:30 07/18/18 15:31 DC 07/18/18 15:30 1 EACH Vancomycin HCl 1.75 gm/Sodium Chloride 500 ml @ 250 mls/hr Q12H 07/16/18 04:00 07/17/18 04:10 DC 07/17/18 04:08 250 MLS/HR Vancomycin HCl 2 gm/Sodium Chloride 500 ml @ 250 mls/hr Q12H 07/17/18 16:00 07/19/18 05:08 250 MLS/HR Labs: Lab Laboratory Tests Test 07/18/18 15:30 07/19/18 04:01 07/19/18 04:27 Vancomycin Level Trough 15.9 mcg/mL (10.0-20.0) Vancomycin Last Dose Date 07/18/18 Vancomycin Last Dose Time 0400 Sodium Level 142 mmol/L (136-145) Potassium Level 3.4 mmol/L (3.5-5.1) Chloride Level 107 mmol/L (98-107) Carbon Dioxide Level 24 mmol/L (21-32) Anion Gap 11 (6-14) Blood Urea Nitrogen 12 mg/dL (8-26) Creatinine 0.6 mg/dL (0.7-1.3) Estimated GFR (Cockcroft-Gault) 138.9 BUN/Creatinine Ratio 20 (6-20) Glucose Level 145 mg/dL (70-99) Calcium Level 7.0 mg/dL (8.5-10.1) Total Bilirubin 0.5 mg/dL (0.2-1.0) Aspartate Amino Transf (AST/SGOT) 16 U/L (15-37) Alanine Aminotransferase (ALT/SGPT) 17 U/L (16-63) Alkaline Phosphatase 59 U/L (46-116) Total Protein 6.2 g/dL (6.4-8.2) Albumin 2.5 g/dL (3.4-5.0) Albumin/Globulin Ratio 0.7 (1.0-1.7) White Blood Count 5.4 x10^3/uL (4.0-11.0) Red Blood Count 2.49 x10^6/uL (4.30-5.70) Hemoglobin 8.7 g/dL (13.0-17.5) Hematocrit 24.9 % (39.0-53.0) Mean Corpuscular Volume 100 fL (79-100) Mean Corpuscular Hemoglobin 35 pg (25-35) Mean Corpuscular Hemoglobin Concent 35 g/dL (31-37) Red Cell Distribution Width 22.0 % (11.5-14.5) Platelet Count 118 x10^3/uL (140-400) Neutrophils (%) (Auto) 84 % (31-73) Lymphocytes (%) (Auto) 10 % (24-48) Monocytes (%) (Auto) 7 % (0-9) Eosinophils (%) (Auto) 0 % (0-3) Basophils (%) (Auto) 0 % (0-3) Neutrophils # (Auto) 4.5 x10^3uL (1.8-7.7) Lymphocytes # (Auto) 0.5 x10^3/uL (1.0-4.8) Monocytes # (Auto) 0.4 x10^3/uL (0.0-1.1) Eosinophils # (Auto) 0.0 x10^3/uL (0.0-0.7) Basophils # (Auto) 0.0 x10^3/uL (0.0-0.2) Micro RUN DATE: 07/18/18 PAGE 1 RUN TIME: 1515 [facility] [address] [place] [address] Rojas Baker M.D., Ship Keeper PATIENT: JOHN FORTE ACCT: [id number] LOC: [address] [place] [address] U : [id number] AGE/SX: 58/M ROOM: [facility] REG : 07/15/[address]: ANAYELI FLOWERS MD : 1960 BED: 1 DIS : STATUS: ADM IN TLOC: SPEC #: [id number] CONCHA: 07/15/18 STATUS: RES REQ #: [id number] RECD: 07/15/[address]: JULIANNA PETERSON MD SOURCE: CSF ENTR: 07/15/[address] [facility] [address]: SUSAN BXO APRN SPDESC: ORDERED: ANAER/AERSEVERO/MONICA Procedure Result ANAEROBIC-AEROBIC CULTURE PENDING ANAEROBIC RES 1 PENDING AEROBIC CULT Preliminary Preliminary report AEROBIC RES 1 Preliminary Comment No growth in 36 - 48 hours. GRAM STAIN Final Final report GRAM STAIN RES 1 Final Comment Few white blood cells. GRAM STAIN RES 2 Final No organisms seen Performed at: - [facility] [address], [place], [place] [id number] Registered Mail Clerk: PATO Pearl MD, Phone: [phone] Objective: Assessment: Headache, fever in an immunosuppressed patient - improved Cerebrospinal fluid pleocytosis consistent with meningitis, most likely bacterial meningitis. - 07/15. CSF WBC 4068, glucose 45, T protein 318.8. G/S ,many wbcs, no organisms CSF C/S neg so far - HSV 1 &[address] head neg for abscess/sinus disease Multiple myeloma, on chemotherapy. Fever, improved Encephalopathy, which has improved. PCN & amoxicillin causing stomach upset , Hypertension. Hyperlipidemia. Gastroesophageal reflux disease. thrombocytopenia,mild Plan: Plan of Care Cont empiric vanc, cefepime and ampicillin Vanc trough 15.9 ( 07/18) f/u cultures WNV pending Monitor labs/temp/renal function J LUIS LONGORIA MD Jul 19, 2018 10:11
[2018-07-19] MEDS: VANCOMYCIN PER PHARMACY MC PRN (10:36)
[2018-07-19 13:18] LABS: WEST NILE IGG CSF Positive (Negative); WEST NILE IGM CSF Negative (Negative)
[2018-07-19 14:54] VITALS: BP 162/97
[2018-07-19 19:44] VITALS: BP 158/93
[2018-07-19] MEDS: TAMSULOSIN 0.4 MG CAP.ER.24H. PO SCH (20:32)
[2018-07-19] MEDS: diphenhydrAMINE HCL 25 MG CAPSULE PO PRN (22:48)
[2018-07-19] MEDS: traZODone 50 MG TABLET. PO PRN (22:48)
[2018-07-19 23:20] VITALS: BP 145/87
[2018-07-20] MEDS: AMPICILLIN SODIUM 2 GM in IV NORMAL SALINE 100ML 100 ML IV SCH ×3 (00:37→08:11)
[2018-07-20] MEDS: IV NORMAL SALINE 1000ML BAG 1,000 ML IV SCH ×4 (00:45→22:19)
[2018-07-20 03:20] VITALS: BP 146/93
[2018-07-20 04:18] LABS: BASO % 0 % (0-3); EOS % 0 % (0-3); HEMATOCRIT 25.2 % (39.0-53.0); HEMOGLOBIN 8.8 g/dL (13.0-17.5); LYMPH # 0.4 x10^3/uL (1.0-4.8); LYMPH % 9 % (24-48); MEAN CORPUSCULAR HEMOGLOBIN 35 pg (25-35); MEAN CORPUSCULAR HGB CONC 35 g/dL (31-37); MEAN CORPUSCULAR VOLUME 100 fL (79-100); MONO # 0.3 x10^3/uL (0.0-1.1); MONO % 6 % (0-9); NEUT # 4.3 x10^3uL (1.8-7.7); NEUT % 85 % (31-73); PLATELET COUNT 148 x10^3/uL (140-400); RED BLOOD COUNT 2.51 x10^6/uL (4.30-5.70); RED CELL DISTRIBUTION WIDTH 21.9 % (11.5-14.5); WHITE BLOOD COUNT 5.1 x10^3/uL (4.0-11.0)
[2018-07-20 04:45] LABS: ALBUMIN 2.6 g/dL (3.4-5.0); ALBUMIN/GLOBULIN RATIO 0.7 (1.0-1.7); CALCIUM 6.8 mg/dL (8.5-10.1); CREATININE 0.6 mg/dL (0.7-1.3); GFR 138.9; POTASSIUM 3.3 mmol/L (3.5-5.1); TOTAL BILIRUBIN 0.5 mg/dL (0.2-1.0); TOTAL PROTEIN 6.1 g/dL (6.4-8.2)
[2018-07-20] MEDS: DEXAMETHASONE SOD PHOS 4 MG/ML VIAL IV SCH ×3 (06:53→22:14)
[2018-07-20] MEDS: CEFEPIME HCL IV Push 2 GM VIAL. IVP SCH (06:53)
[2018-07-20 07:10] VITALS: BP 152/101
[2018-07-20] MEDS: ACETAMINOPHEN 325 MG TABLET. PO PRN ×2 (07:49→20:20)
[2018-07-20] MEDS: ASPIRIN 325 MG TABLET PO SCH (08:10)
[2018-07-20] MEDS: GABAPENTIN 300 MG CAPSULE. PO SCH ×2 (08:10→20:14)
[2018-07-20] MEDS: CITALOPRAM 20 MG TABLET. PO SCH (08:10)
[2018-07-20] MEDS: LOSARTAN POTASSIUM 50 MG TABLET. PO SCH (08:10)
[2018-07-20] MEDS: PANTOPRAZOLE 40 MG TABLET.DR. PO SCH (08:10)
[2018-07-20] MEDS: ACYCLOVIR 200 MG CAPSULE. PO SCH ×2 (08:10→20:14)
[2018-07-20] MEDS: ALLOPURINOL 300 MG TABLET. PO SCH (08:10)
--- NOTE | 2018-07-20 08:53 | PDOC ---
PROGRESS NOTES Subjective Subjective HPI - f/u of Multiple myeloma ROS - no headache Objective Objective Vital Signs Date Time Temp Pulse Resp B/P (MAP) Pulse Ox O2 Delivery O2 Flow Rate FiO2 07/20/18 08:10 76 152/101 07/20/18 07:10 97.5 20 97 Room Air 97.5 07/19/18 20:00 2.0 Intake and Output 07/20/18 07:00 Intake Total 2950 ml Balance 2950 ml Intake Oral 2850 ml IV Total 100 ml # Voids 7 # Bowel Movements 1 Physical Exam General: Alert, Oriented X3, No acute distress Neuro: Normal speech Psych/Mental Status: Mental status NL Assessment Assessment Problems Medical Problems: (1) Altered mental status Status: Acute IMPRESSION AND PLAN: 1. Multiple myeloma, IgA kappa type, diagnosed by bone marrow biopsy on 06/25/2018. He received Decadron 40 mg daily for 4 days from 06/25/2018. After confirmation of diagnosis, he was started on chemotherapy with Velcade, Decadron and Revlimid from 07/06/2018. Revlimid was not available until 07/08/2018 and he took only one dose on 07/08/2018. He was subsequently hospitalized and Revlimid was held. He received cycle #1, day #4 of Velcade on 07/09/2018. He received cycle #1 day #8 of Velcade on 07/13/2018 along with Decadron 40 mg on 07/13/2018. He resumed Revlimid on 07/13/2018 and he also received a dose on 07/14/2018. He developed fever and confusion on 07/15/2018 and hence chemotherapy was again held. He was admitted to [facility] with suspected meningitis and he is on IV antibiotics per ID. I discussed with Dr. Puneet Johnson and with Dr. Georgina Cerna. I will plan to hold further chemotherapy until the underlying infection is resolved. His myeloma is under good control as his total protein is significantly improved. f/u with me next week to resume chemo. 2. Fever. Appreciate Infectious Disease consultation and management. Improved, he feels better. afebrile now. 3. Meningitis suspected as the cerebrospinal fluid revealed evidence of elevated WBC count of 4000. Management per Infectious Diseases. 4. Anemia. Continue to monitor. Plan transfusion if hemoglobin drops to below 7. 5. CT scan of the head on 07/15/2018 is negative. Nonspecific white matter changes seen bilaterally, which may be due to chronic small vessel ischemic disease. Comment Review of Relevant I have reviewed the following items cristina (where applicable) has been applied. Labs Laboratory Tests Test 07/18/18 09:10 07/18/18 15:30 07/19/18 04:01 07/19/18 04:27 White Blood Count 8.0 x10^3/uL (4.0-11.0) 5.4 x10^3/uL (4.0-11.0) Red Blood Count 2.97 x10^6/uL (4.30-5.70) 2.49 x10^6/uL (4.30-5.70) Hemoglobin 10.2 g/dL (13.0-17.5) 8.7 g/dL (13.0-17.5) Hematocrit 29.5 % (39.0-53.0) 24.9 % (39.0-53.0) Mean Corpuscular Volume 99 fL (79-100) 100 fL (79-100) Mean Corpuscular Hemoglobin 34 pg (25-35) 35 pg (25-35) Mean Corpuscular Hemoglobin Concent 35 g/dL (31-37) 35 g/dL (31-37) Red Cell Distribution Width 22.6 % (11.5-14.5) 22.0 % (11.5-14.5) Platelet Count 129 x10^3/uL (140-400) 118 x10^3/uL (140-400) Neutrophils (%) (Auto) 90 % (31-73) 84 % (31-73) Lymphocytes (%) (Auto) 7 % (24-48) 10 % (24-48) Monocytes (%) (Auto) 4 % (0-9) 7 % (0-9) Eosinophils (%) (Auto) 0 % (0-3) 0 % (0-3) Basophils (%) (Auto) 0 % (0-3) 0 % (0-3) Neutrophils # (Auto) 7.2 x10^3uL (1.8-7.7) 4.5 x10^3uL (1.8-7.7) Lymphocytes # (Auto) 0.5 x10^3/uL (1.0-4.8) 0.5 x10^3/uL (1.0-4.8) Monocytes # (Auto) 0.3 x10^3/uL (0.0-1.1) 0.4 x10^3/uL (0.0-1.1) Eosinophils # (Auto) 0.0 x10^3/uL (0.0-0.7) 0.0 x10^3/uL (0.0-0.7) Basophils # (Auto) 0.0 x10^3/uL (0.0-0.2) 0.0 x10^3/uL (0.0-0.2) Sodium Level 141 mmol/L (136-145) 142 mmol/L (136-145) Potassium Level 3.3 mmol/L (3.5-5.1) 3.4 mmol/L (3.5-5.1) Chloride Level 103 mmol/L (98-107) 107 mmol/L (98-107) Carbon Dioxide Level 27 mmol/L (21-32) 24 mmol/L (21-32) Anion Gap 11 (6-14) 11 (6-14) Blood Urea Nitrogen 13 mg/dL (8-26) 12 mg/dL (8-26) Creatinine 0.8 mg/dL (0.7-1.3) 0.6 mg/dL (0.7-1.3) Estimated GFR (Cockcroft-Gault) 99.6 138.9 BUN/Creatinine Ratio 16 (6-20) 20 (6-20) Glucose Level 204 mg/dL (70-99) 145 mg/dL (70-99) Calcium Level 7.4 mg/dL (8.5-10.1) 7.0 mg/dL (8.5-10.1) Total Bilirubin 0.8 mg/dL (0.2-1.0) 0.5 mg/dL (0.2-1.0) Aspartate Amino Transf (AST/SGOT) 18 U/L (15-37) 16 U/L (15-37) Alanine Aminotransferase (ALT/SGPT) 18 U/L (16-63) 17 U/L (16-63) Alkaline Phosphatase 70 U/L (46-116) 59 U/L (46-116) Total Protein 7.5 g/dL (6.4-8.2) 6.2 g/dL (6.4-8.2) Albumin 3.1 g/dL (3.4-5.0) 2.5 g/dL (3.4-5.0) Albumin/Globulin Ratio 0.7 (1.0-1.7) 0.7 (1.0-1.7) Vancomycin Level Trough 15.9 mcg/mL (10.0-20.0) Vancomycin Last Dose Date 07/18/18 Vancomycin Last Dose Time 0400 Test 07/20/18 03:05 White Blood Count 5.1 x10^3/uL (4.0-11.0) Red Blood Count 2.51 x10^6/uL (4.30-5.70) Hemoglobin 8.8 g/dL (13.0-17.5) Hematocrit 25.2 % (39.0-53.0) Mean Corpuscular Volume 100 fL (79-100) Mean Corpuscular Hemoglobin 35 pg (25-35) Mean Corpuscular Hemoglobin Concent 35 g/dL (31-37) Red Cell Distribution Width 21.9 % (11.5-14.5) Platelet Count 148 x10^3/uL (140-400) Neutrophils (%) (Auto) 85 % (31-73) Lymphocytes (%) (Auto) 9 % (24-48) Monocytes (%) (Auto) 6 % (0-9) Eosinophils (%) (Auto) 0 % (0-3) Basophils (%) (Auto) 0 % (0-3) Neutrophils # (Auto) 4.3 x10^3uL (1.8-7.7) Lymphocytes # (Auto) 0.4 x10^3/uL (1.0-4.8) Monocytes # (Auto) 0.3 x10^3/uL (0.0-1.1) Eosinophils # (Auto) 0.0 x10^3/uL (0.0-0.7) Basophils # (Auto) 0.0 x10^3/uL (0.0-0.2) Sodium Level 143 mmol/L (136-145) Potassium Level 3.3 mmol/L (3.5-5.1) Chloride Level 108 mmol/L (98-107) Carbon Dioxide Level 23 mmol/L (21-32) Anion Gap 12 (6-14) Blood Urea Nitrogen 12 mg/dL (8-26) Creatinine 0.6 mg/dL (0.7-1.3) Estimated GFR (Cockcroft-Gault) 138.9 BUN/Creatinine Ratio 20 (6-20) Glucose Level 177 mg/dL (70-99) Calcium Level 6.8 mg/dL (8.5-10.1) Total Bilirubin 0.5 mg/dL (0.2-1.0) Aspartate Amino Transf (AST/SGOT) 16 U/L (15-37) Alanine Aminotransferase (ALT/SGPT) 23 U/L (16-63) Alkaline Phosphatase 64 U/L (46-116) Total Protein 6.1 g/dL (6.4-8.2) Albumin 2.6 g/dL (3.4-5.0) Albumin/Globulin Ratio 0.7 (1.0-1.7) Laboratory Tests Test 07/20/18 03:05 White Blood Count 5.1 x10^3/uL (4.0-11.0) Red Blood Count 2.51 x10^6/uL (4.30-5.70) Hemoglobin 8.8 g/dL (13.0-17.5) Hematocrit 25.2 % (39.0-53.0) Mean Corpuscular Volume 100 fL (79-100) Mean Corpuscular Hemoglobin 35 pg (25-35) Mean Corpuscular Hemoglobin Concent 35 g/dL (31-37) Red Cell Distribution Width 21.9 % (11.5-14.5) Platelet Count 148 x10^3/uL (140-400) Neutrophils (%) (Auto) 85 % (31-73) Lymphocytes (%) (Auto) 9 % (24-48) Monocytes (%) (Auto) 6 % (0-9) Eosinophils (%) (Auto) 0 % (0-3) Basophils (%) (Auto) 0 % (0-3) Neutrophils # (Auto) 4.3 x10^3uL (1.8-7.7) Lymphocytes # (Auto) 0.4 x10^3/uL (1.0-4.8) Monocytes # (Auto) 0.3 x10^3/uL (0.0-1.1) Eosinophils # (Auto) 0.0 x10^3/uL (0.0-0.7) Basophils # (Auto) 0.0 x10^3/uL (0.0-0.2) Sodium Level 143 mmol/L (136-145) Potassium Level 3.3 mmol/L (3.5-5.1) Chloride Level 108 mmol/L (98-107) Carbon Dioxide Level 23 mmol/L (21-32) Anion Gap 12 (6-14) Blood Urea Nitrogen 12 mg/dL (8-26) Creatinine 0.6 mg/dL (0.7-1.3) Estimated GFR (Cockcroft-Gault) 138.9 BUN/Creatinine Ratio 20 (6-20) Glucose Level 177 mg/dL (70-99) Calcium Level 6.8 mg/dL (8.5-10.1) Total Bilirubin 0.5 mg/dL (0.2-1.0) Aspartate Amino Transf (AST/SGOT) 16 U/L (15-37) Alanine Aminotransferase (ALT/SGPT) 23 U/L (16-63) Alkaline Phosphatase 64 U/L (46-116) Total Protein 6.1 g/dL (6.4-8.2) Albumin 2.6 g/dL (3.4-5.0) Albumin/Globulin Ratio 0.7 (1.0-1.7) Microbiology 07/15/18 Blood Culture - Preliminary, Resulted NO GROWTH AFTER 4 DAYS 07/15/18 Anaerobic/Aerobic Culture - Preliminary, Resulted 07/15/18 Anaerobic Culture Result 1 (ANDRY), Resulted Pending 07/15/18 Aerobic Culture - Final, Resulted 07/15/18 Aerobic Culture Result 1 (ANDRY) - Final, Resulted 07/15/18 Gram Stain - Final, Resulted 07/15/18 Gram Stain Result 1 (ANDRY) - Final, Resulted 07/15/18 Gram Stain Result 2 (ANDRY) - Final, Resulted Medications Current Medications Sodium Chloride 1,000 ml @ 1,000 mls/hr 1X ONCE IV Last administered on at 14:40; Start 07/15/18 at 14:00; Stop 07/15/18 at 14:59; Status DC Cefepime HCl 1 gm/ Dextrose 50 ml @ 100 mls/hr 1X STAT IV ; Start 07/15/18 at 13:55; Stop 07/15/18 at 14:24; Status UNV Vancomycin HCl (Vanco Per Pharmacy) 1 each PRN DAILY PRN MC SEE COMMENTS Last administered on 07/19/18at 10:36; Start 07/15/18 at 14:00; Stop 07/19/18 at 11:37 ; Status DC Cefepime HCl (Maxipime) 1 gm 1X ONCE IVP Last administered on 07/15/18at 15:47 ; Start 07/15/18 at 14:15; Stop 07/15/18 at 14:18; Status DC Vancomycin HCl 2 gm/Sodium Chloride 500 ml @ 250 mls/hr 1X ONCE IV Last administered on 07/15/18at 15:50; Start 07/15/18 at 14:30; Stop 07/15/18 at 16:29 ; Status DC Acetaminophen (Tylenol) 1,000 mg 1X ONCE PO Last administered on 07/15/18at 14: 40; Start 07/15/18 at 14:15; Stop 07/15/18 at 14:18; Status DC Fentanyl Citrate (Fentanyl 2ml Vial) 50 mcg 1X ONCE IV Last administered on at 15:01; Start 07/15/18 at 15:00; Stop 07/15/18 at 15:01; Status DC Ondansetron HCl (Zofran) 4 mg 1X ONCE IV Last administered on 07/15/18at 15:00 ; Start 07/15/18 at 15:00; Stop 07/15/18 at 15:01; Status DC Ketorolac Tromethamine (Toradol 15mg Vial) 15 mg 1X ONCE IV Last administered on 07/15/18at 15:46; Start 07/15/18 at 15:30; Stop 07/15/18 at 15:36; Status DC Fentanyl Citrate (Fentanyl 2ml Vial) 50 mcg 1X ONCE IV Last administered on at 15:43; Start 07/15/18 at 15:30; Stop 07/15/18 at 15:36; Status DC Sodium Chloride 1,000 ml @ 1,000 mls/hr 1X ONCE IV Last administered on at 16:18; Start 07/15/18 at 15:30; Stop 07/15/18 at 16:29; Status DC Metoclopramide HCl (Reglan Vial) 10 mg 1X ONCE IV Last administered on at 15:44; Start 07/15/18 at 15:30; Stop 07/15/18 at 15:36; Status DC Diphenhydramine HCl (Benadryl) 25 mg 1X ONCE IVP Last administered on at 15:44; Start 07/15/18 at 15:30; Stop 07/15/18 at 15:36; Status DC Lidocaine HCl 20 ml 1X ONCE IJ Last administered on 07/15/18at 17:41; Start at 16:15; Stop 07/15/18 at 16:18; Status DC Lorazepam (Ativan) 1 mg 1X ONCE IV Last administered on 07/15/18at 16:58; Start 07/15/18 at 16:15; Stop 07/15/18 at 16:18; Status DC Lidocaine HCl (Xylocaine-Mpf 2% Vial) 2 ml STK-MED ONCE .ROUTE ; Start 07/15/18 at 16:31; Stop 07/15/18 at 16:33; Status DC Cefepime HCl 2 gm/ Dextrose 100 ml @ 200 mls/hr Q8HRS IV ; Start 07/15/18 at 22 :00; Status UNV Sodium Chloride 1,000 ml @ 125 mls/hr Q8H IV Last administered on 07/20/18at 07 :50; Start 07/15/18 at 16:45 Fentanyl Citrate (Fentanyl 2ml Vial) 50 mcg PRN Q2HR PRN IV PAIN Last administered on 07/16/18at 01:57; Start 07/15/18 at 17:00; Stop 07/16/18 at 16:59 ; Status DC Sodium Chloride 1,000 ml @ 125 mls/hr Q8H IV ; Start 07/15/18 at 16:55; Stop 07/16/18 at 04:17; Status DC Morphine Sulfate (Morphine Sulfate) 6 mg 1X ONCE IV Last administered on at 17:57; Start 07/15/18 at 17:45; Stop 07/15/18 at 18:05; Status DC Trimethoprim/ Sulfamethoxazole 20 ml/Dextrose 500 ml @ 333.333 mls/hr Q8HRS IV ; Start 07/15/18 at 19:00; Stop 07/15/18 at 19:46; Status DC Acyclovir Sodium 730 mg/Dextrose 264.6 ml @ 264.6 mls/ hr 1X ONCE IV Last administered on 07/15/18at 18:04; Start 07/15/18 at 18:00; Stop 07/15/18 at 18:59 ; Status DC Dextrose 20 ml @ 200 mls/hr Q8HRS IV ; Start 07/15/18 at 19:00; Stop 07/15/18 at 19:46; Status DC Cefepime HCl (Maxipime) 2 gm Q8HRS IVP Last administered on 07/20/18 06:53; Start 07/15/18 at 22:00 Vancomycin HCl 1.75 gm/Sodium Chloride 500 ml @ 250 mls/hr Q12H IV Last administered on 07/17/18at 04:08; Start 07/16/18 at 04:00; Stop 07/17/18 at 04:10 ; Status DC Vancomycin HCl (Vancomycin Trough Level) 1 each 1X ONCE MC Last administered on 07/17/18at 03:30; Start 07/17/18 at 03:30; Stop 07/17/18 at 03:31; Status DC Ampicillin Sodium 2 gm/Sodium Chloride 100 ml @ 200 mls/hr Q4HRS IV Last administered on 07/20/18at 08:11; Start 07/15/18 at 20:00 Dexamethasone Sodium Phosphate (Decadron) 8 mg Q8HRS IV Last administered on at 06:53; Start 07/15/18 at 22:00 Allopurinol (Zyloprim) 300 mg DAILY PO Last administered on 07/20/18at 08:10; Start 07/16/18 at 09:00 Aspirin (Debbie Aspirin) 325 mg DAILY PO Last administered on 07/20/18 08:10; Start 07/16/18 at 09:00 Tamsulosin HCl (Flomax) 0.4 mg QHS PO Last administered on 07/19/18at 20:32; Start 07/16/18 at 21:00 Acyclovir (Zovirax) 800 mg BID PO Last administered on 07/20/18 08:10; Start 07/16/18 at 09:00 Citalopram Hydrobromide (CeleXA) 20 mg DAILY PO Last administered on 10/9/18at 08:10; Start 07/16/18 at 09:00 Gabapentin (Neurontin) 300 mg BID PO Last administered on 07/20/18at 08:10; Start 07/16/18 at 09:00 Pantoprazole Sodium (Protonix) 40 mg DAILYAC PO Last administered on 07/20/18at 08:10; Start 07/16/18 at 07:30 Labetalol HCl (Normodyne Iv Push) 20 mg PRN Q2HR PRN IVP HYPERTENSION, SEE COMMENTS; Start 07/15/18 at 22:15; Stop 07/18/18 at 08:48; Status DC Acetaminophen/ Hydrocodone Bitart (Lortab 5/325) 1 tab PRN Q4HRS PRN PO SEVERE PAIN; Start 07/16/18 at 12:15 Acetaminophen (Tylenol) 650 mg PRN Q6HRS PRN PO FEVER Last administered on 07/20at 07:49; Start 07/16/18 at 12:30 Ondansetron HCl (Zofran) 4 mg PRN Q6HRS PRN IV NAUSEA/VOMITING 1ST CHOICE; Start 07/16/18 at 12:30 Morphine Sulfate (Morphine Sulfate) 2 mg PRN Q2HR PRN IV MODERATE TO SEVERE PAIN; Start 07/16/18 at 12:30 Tramadol HCl (Ultram) 50 mg PRN Q6HRS PRN PO MILD TO MODERATE PAIN; Start 07/16 at 12:30 Docusate Sodium (Colace) 100 mg PRN DAILY PRN PO HARD STOOLS; Start 07/16/18 at 12:30 Vancomycin HCl 2 gm/Sodium Chloride 500 ml @ 250 mls/hr Q12H IV Last administered on 07/19/18at 05:08; Start 07/17/18 at 16:00; Stop 07/19/18 at 11:37 ; Status DC Vancomycin HCl (Vancomycin Trough Level) 1 each 1X ONCE MC Last administered on 07/18/18at 15:30; Start 07/18/18 at 15:30; Stop 07/18/18 at 15:31; Status DC Diphenhydramine HCl (Benadryl) 25 mg PRN QHS PRN PO INSOMNIA Last administered on 07/19/18at 22:48; Start 07/17/18 at 23:00 Trazodone HCl (Desyrel) 50 mg PRN QHS PRN PO INSOMNIA Last administered on 07/19at 22:48; Start 07/17/18 at 23:00 Losartan Potassium (Cozaar) 50 mg DAILY PO Last administered on 07/20/18at 08:10 ; Start 07/18/18 at 09:00 Labetalol HCl (Normodyne Iv Push) 10 mg PRN Q3HRS PRN IVP HYPERTENSION, SEE COMMENTS; Start 07/18/18 at 08:45 Active Scripts Active Levaquin (Levofloxacin) 500 Mg Tablet 500 Mg PO DAILY06 Flomax (Tamsulosin Hcl) 0.4 Mg Cap.er.24h 0.4 Mg PO QHS Reported Revlimid (Lenalidomide) 25 Mg Capsule 25 Mg PO Gabapentin 300 Mg Capsule 300 Mg PO BID Sulfamethoxazole-Tmp Ds Tablet (Sulfamethoxazole/Trimethoprim) 1 Each Tablet 1 Tab PO BID Dexamethasone 4 Mg Tablet 40 Mg PO WEEKLY Acyclovir 800 Mg Tablet 1 Tab PO BID Aspirin 325 Mg Tablet 1 Tab PO DAILY Hyzaar 100-25 Tablet (Losartan/Hydrochlorothiazide) 1 Each Tablet 1 Each PO DAILY Hydrocodone-Apap 5-325 (Hydrocodone Bit/Acetaminophen) 1 Each Tablet 1 Tab PO PRN Q6HRS PRN Escitalopram Oxalate 10 Mg Tablet 10 Mg PO DAILY Flonase Allergy Relief (Fluticasone Propionate) 9.9 Ml [place].susp 2 Sprays NS DAILY Meloxicam 7.5 Mg Tablet 7.5 Mg PO DAILY Prilosec Otc (Omeprazole Magnesium) 20 Mg Tablet.dr 40 Mg PO DAILY Allopurinol 300 Mg Tablet 300 Mg PO DAILY Vitals/I & O Vital Sign - Last 24 Hours 07/19/18 07/19/18 07/19/18 07/19/18 08:53 14:54 19:44 20:00 Temp 97.5 98.1 97.5 98.1 Pulse 91 96 83 Resp 20 20 B/P (MAP) 175/103 162/97 (118) 158/93 (114) Pulse Ox 98 O2 Delivery Room Air Room Air Room Air O2 Flow Rate 2.0 07/19/18 07/20/18 07/20/18 07/20/18 23:20 03:20 07:10 08:10 Temp 97.9 97.7 97.5 97.9 97.7 97.5 Pulse 74 74 76 76 Resp 18 18 20 B/P (MAP) 145/87 (106) 146/93 (110) 152/101 (118) 152/101 Pulse Ox 100 96 97 O2 Delivery Room Air Room Air Room Air Intake and Output 07/19/18 07/19/18 07/20/18 15:00 23:00 07:00 Intake Total 1900 ml 1050 ml Balance 1900 ml 1050 ml Nutrition Consultation Dietary Evaluation: Recommendations by RD: Increase Calorie Intake Comments: continue w/regular diet as ordered if PO intake is not consistently >50% of meals, recommend adding oral supplements to improve calorie/protein intake Expected Outcomes/Goals: PO intake to meet >75% est needs Malnutrition Findings: Food and Nutrition Intake (Mod: <75% est energy req 7days Weight Status: Obese PHILLIP FUNEZ MD Jul 20, 2018 08:53
--- NOTE | 2018-07-20 09:11 | PDOC ---
Infectious Disease Note Subjective: Subjective pt says has been improving slowly since sat has some achiness in the sinuses this am no drainage, no cough no sore throat no eye pain No fever last 24 hours Chronic visual changes Denies VALENZUELA/photophobia/chills/sweats/N/V/SOA no change in itching ROS: ROS Negative except for above. Vital Signs: Vital Signs Vital Signs Date Time Temp Pulse Resp B/P (MAP) Pulse Ox O2 Delivery O2 Flow Rate FiO2 07/20/18 08:10 76 152/101 07/20/18 07:10 97.5 20 97 Room Air 97.5 07/19/18 20:00 2.0 Physical Exam: PHYSICAL EXAM GENERAL: Propped up in bed, AXOX3 in no acute distress HENT: PERRL. no icterus, Oral cavity, pharynx pink and moist. Sinuses nontender NECK: Supple LUNGS: Clear CV: S1, S2 ABDOMEN: Soft, NT EXT: No gross edema or cyanosis SKIN: warm without rash [employer] PROFESSIONAL: AXOX3, nonfocal PIV Medications: Inpatient Meds: Current Medications Medications (Trade) Dose Ordered Sig/Miguelina Start Time Stop Time Status Last Admin Dose Admin Acetaminophen (Tylenol) 650 mg PRN Q6HRS PRN 07/16/18 12:30 07/20/18 07:49 650 MG Acetaminophen/ Hydrocodone Bitart (Lortab 5/325) 1 tab PRN Q4HRS PRN 07/16/18 12:15 Acyclovir (Zovirax) 800 mg BID 07/16/18 09:00 07/20/18 08:10 800 MG Acyclovir Sodium 730 mg/Dextrose 264.6 ml @ 264.6 mls/ hr 1X ONCE 07/15/18 18:00 07/15/18 18:59 DC 07/15/18 18:04 264.6 MLS/HR Allopurinol (Zyloprim) 300 mg DAILY 07/16/18 09:00 07/20/18 08:10 300 MG Ampicillin Sodium 2 gm/Sodium Chloride 100 ml @ 200 mls/hr Q4HRS 07/15/18 20:00 07/20/18 08:11 200 MLS/HR Aspirin (Debbie Aspirin) 325 mg DAILY 07/16/18 09:00 07/20/18 08:10 325 MG Cefepime HCl (Maxipime) 2 gm Q8HRS 07/15/18 22:00 07/20/18 06:53 2 GM Cefepime HCl 1 gm/ Dextrose 50 ml @ 100 mls/hr 1X STAT 07/15/18 13:55 07/15/18 14:24 UNV Cefepime HCl 2 gm/ Dextrose 100 ml @ 200 mls/hr Q8HRS 07/15/18 22:00 UNV Citalopram Hydrobromide (CeleXA) 20 mg DAILY 07/16/18 09:00 07/20/18 08:10 20 MG Dexamethasone Sodium Phosphate (Decadron) 8 mg Q8HRS 07/15/18 22:00 07/20/18 06:53 8 MG Dextrose 20 ml @ 200 mls/hr Q8HRS 07/15/18 19:00 07/15/18 19:46 DC Diphenhydramine HCl (Benadryl) 25 mg PRN QHS PRN 07/17/18 23:00 07/19/18 22:48 25 MG Docusate Sodium (Colace) 100 mg PRN DAILY PRN 07/16/18 12:30 Fentanyl Citrate (Fentanyl 2ml Vial) 50 mcg PRN Q2HR PRN 07/15/18 17:00 07/16/18 16:59 DC 07/16/18 01:57 50 MCG Gabapentin (Neurontin) 300 mg BID 07/16/18 09:00 07/20/18 08:10 300 MG Ketorolac Tromethamine (Toradol 15mg Vial) 15 mg 1X ONCE 07/15/18 15:30 07/15/18 15:36 DC 07/15/18 15:46 15 MG Labetalol HCl (Normodyne Iv Push) 10 mg PRN Q3HRS PRN 07/18/18 08:45 Lidocaine HCl (Xylocaine-Mpf 2% Vial) 2 ml STK-MED ONCE 07/15/18 16:31 07/15/18 16:33 DC Lorazepam (Ativan) 1 mg 1X ONCE 07/15/18 16:15 07/15/18 16:18 DC 07/15/18 16:58 1 MG Losartan Potassium (Cozaar) 50 mg DAILY 07/18/18 09:00 07/20/18 08:10 50 MG Metoclopramide HCl (Reglan Vial) 10 mg 1X ONCE 07/15/18 15:30 07/15/18 15:36 DC 07/15/18 15:44 10 MG Morphine Sulfate (Morphine Sulfate) 2 mg PRN Q2HR PRN 07/16/18 12:30 Ondansetron HCl (Zofran) 4 mg PRN Q6HRS PRN 07/16/18 12:30 Pantoprazole Sodium (Protonix) 40 mg DAILYAC 07/16/18 07:30 07/20/18 08:10 40 MG Sodium Chloride 1,000 ml @ 125 mls/hr Q8H 07/15/18 16:55 07/16/18 04:17 DC Tamsulosin HCl (Flomax) 0.4 mg QHS 07/16/18 21:00 07/19/18 20:32 0.4 MG Tramadol HCl (Ultram) 50 mg PRN Q6HRS PRN 07/16/18 12:30 Trazodone HCl (Desyrel) 50 mg PRN QHS PRN 07/17/18 23:00 07/19/18 22:48 50 MG Trimethoprim/ Sulfamethoxazole 20 ml/Dextrose 500 ml @ 333.333 mls/hr Q8HRS 07/15/18 19:00 07/15/18 19:46 DC Vancomycin HCl (Vanco Per Pharmacy) 1 each PRN DAILY PRN 07/15/18 14:00 07/19/18 11:37 DC 07/19/18 10:36 1 EACH Vancomycin HCl (Vancomycin Trough Level) 1 each 1X ONCE 07/18/18 15:30 07/18/18 15:31 DC 07/18/18 15:30 1 EACH Vancomycin HCl 1.75 gm/Sodium Chloride 500 ml @ 250 mls/hr Q12H 07/16/18 04:00 07/17/18 04:10 DC 07/17/18 04:08 250 MLS/HR Vancomycin HCl 2 gm/Sodium Chloride 500 ml @ 250 mls/hr Q12H 07/17/18 16:00 07/19/18 11:37 DC 07/19/18 05:08 250 MLS/HR Labs: Lab Laboratory Tests Test 07/20/18 03:05 White Blood Count 5.1 x10^3/uL (4.0-11.0) Red Blood Count 2.51 x10^6/uL (4.30-5.70) Hemoglobin 8.8 g/dL (13.0-17.5) Hematocrit 25.2 % (39.0-53.0) Mean Corpuscular Volume 100 fL (79-100) Mean Corpuscular Hemoglobin 35 pg (25-35) Mean Corpuscular Hemoglobin Concent 35 g/dL (31-37) Red Cell Distribution Width 21.9 % (11.5-14.5) Platelet Count 148 x10^3/uL (140-400) Neutrophils (%) (Auto) 85 % (31-73) Lymphocytes (%) (Auto) 9 % (24-48) Monocytes (%) (Auto) 6 % (0-9) Eosinophils (%) (Auto) 0 % (0-3) Basophils (%) (Auto) 0 % (0-3) Neutrophils # (Auto) 4.3 x10^3uL (1.8-7.7) Lymphocytes # (Auto) 0.4 x10^3/uL (1.0-4.8) Monocytes # (Auto) 0.3 x10^3/uL (0.0-1.1) Eosinophils # (Auto) 0.0 x10^3/uL (0.0-0.7) Basophils # (Auto) 0.0 x10^3/uL (0.0-0.2) Sodium Level 143 mmol/L (136-145) Potassium Level 3.3 mmol/L (3.5-5.1) Chloride Level 108 mmol/L (98-107) Carbon Dioxide Level 23 mmol/L (21-32) Anion Gap 12 (6-14) Blood Urea Nitrogen 12 mg/dL (8-26) Creatinine 0.6 mg/dL (0.7-1.3) Estimated GFR (Cockcroft-Gault) 138.9 BUN/Creatinine Ratio 20 (6-20) Glucose Level 177 mg/dL (70-99) Calcium Level 6.8 mg/dL (8.5-10.1) Total Bilirubin 0.5 mg/dL (0.2-1.0) Aspartate Amino Transf (AST/SGOT) 16 U/L (15-37) Alanine Aminotransferase (ALT/SGPT) 23 U/L (16-63) Alkaline Phosphatase 64 U/L (46-116) Total Protein 6.1 g/dL (6.4-8.2) Albumin 2.6 g/dL (3.4-5.0) Albumin/Globulin Ratio 0.7 (1.0-1.7) Micro RUN DATE: 07/18/18 PAGE 1 RUN TIME: 9094 [facility] [address] [place] [address] Rojas Baker M.D., [employer] PATIENT: JOHN FORTE ACCT: [id number] LOC: [address] [place] [address] U : [id number] AGE/SX: 58/M ROOM: [facility] REG : 07/15/[address]: ANAYELI FLOWERS MD : 1960 BED: 1 DIS : STATUS: ADM IN TLOC: SPEC #: [id number] CONCHA: 07/15/18 STATUS: RES REQ #: [id number] RECD: 07/15/[address]: JULIANNA PETERSON MD SOURCE: CSF ENTR: 07/15/18 [facility] DR: SUSAN BOX APRN [facility]: ORDERED: GEORGE/LYSSA/MONICA Procedure Result ANAEROBIC-AEROBIC CULTURE PENDING ANAEROBIC RES 1 PENDING AEROBIC CULT Preliminary Preliminary report AEROBIC RES 1 Preliminary Comment No growth in 36 - 48 hours. GRAM STAIN Final Final report GRAM STAIN RES 1 Final Comment Few white blood cells. GRAM STAIN RES 2 Final No organisms seen Performed at: [facility] [address], [place], [place] [id number] [employer] Developer: PATO Pearl MD, Phone: [phone] Objective: Assessment: Headache, fever in an immunosuppressed patient - improved Cerebrospinal fluid pleocytosis consistent with meningitis, most likely bacterial meningitis. - 07/15. CSF WBC 4068, glucose 45, T protein 318.8. G/S ,many wbcs, no organisms CSF C/S neg so far - HSV 1 &[address] head neg for abscess/sinus disease Multiple myeloma, on chemotherapy. Fever, improved Encephalopathy, which has improved. PCN & amoxicillin causing stomach upset , Hypertension. Hyperlipidemia. Gastroesophageal reflux disease. thrombocytopenia,mild Plan: Plan of Care DC Ampicillin Off IV Vanc 07/19 Change cefepime to merrem, f/u cultures Monitor labs/temp/renal function D/W on phone J LUIS LONGORIA MD Jul 20, 2018 09:10
[2018-07-20 11:07] VITALS: BP 157/82
--- NOTE | 2018-07-20 11:33 | PDOC ---
PROGRESS NOTES Chief Complaint Chief Complaint Multiple myeloma Severe sepsis Meningitis, bacterial Acute encephalopathy Hyponatremia HTN Chronic anemia ON CHEMO Thrombocytopenia History of Present Illness History of Present Illness Pt seen and examined Dw RN Improved fever Continued b/l tingling in upper and lower distal extremities Vitals Vitals Vital Signs Date Time Temp Pulse Resp B/P (MAP) Pulse Ox O2 Delivery O2 Flow Rate FiO2 07/20/18 11:07 95.5 76 16 157/82 (107) Room Air 95.5 07/20/18 07:10 97 07/19/18 20:00 2.0 Physical Exam Physical Exam GENERAL: Propped up in bed, AXOX3 in no acute distress HENT: PERRL. no icterus, Oral cavity, pharynx pink and moist. Sinuses nontender NECK: Supple LUNGS: Clear CV: S1, S2 ABDOMEN: Soft, NT EXT: No gross edema or cyanosis SKIN: warm without rash [employer]: AXOX3, nonfocal PIV General: Alert, Oriented X3, No acute distress Heart: Normal S1, Normal S2 Lungs: Clear Abdomen: Normal bowel sounds, Soft Extremities: No cyanosis, No edema Skin: No rashes, No significant lesion Labs LABS Laboratory Tests Test 07/20/18 03:05 White Blood Count 5.1 x10^3/uL (4.0-11.0) Red Blood Count 2.51 x10^6/uL (4.30-5.70) Hemoglobin 8.8 g/dL (13.0-17.5) Hematocrit 25.2 % (39.0-53.0) Mean Corpuscular Volume 100 fL (79-100) Mean Corpuscular Hemoglobin 35 pg (25-35) Mean Corpuscular Hemoglobin Concent 35 g/dL (31-37) Red Cell Distribution Width 21.9 % (11.5-14.5) Platelet Count 148 x10^3/uL (140-400) Neutrophils (%) (Auto) 85 % (31-73) Lymphocytes (%) (Auto) 9 % (24-48) Monocytes (%) (Auto) 6 % (0-9) Eosinophils (%) (Auto) 0 % (0-3) Basophils (%) (Auto) 0 % (0-3) Neutrophils # (Auto) 4.3 x10^3uL (1.8-7.7) Lymphocytes # (Auto) 0.4 x10^3/uL (1.0-4.8) Monocytes # (Auto) 0.3 x10^3/uL (0.0-1.1) Eosinophils # (Auto) 0.0 x10^3/uL (0.0-0.7) Basophils # (Auto) 0.0 x10^3/uL (0.0-0.2) Sodium Level 143 mmol/L (136-145) Potassium Level 3.3 mmol/L (3.5-5.1) Chloride Level 108 mmol/L (98-107) Carbon Dioxide Level 23 mmol/L (21-32) Anion Gap 12 (6-14) Blood Urea Nitrogen 12 mg/dL (8-26) Creatinine 0.6 mg/dL (0.7-1.3) Estimated GFR (Cockcroft-Gault) 138.9 BUN/Creatinine Ratio 20 (6-20) Glucose Level 177 mg/dL (70-99) Calcium Level 6.8 mg/dL (8.5-10.1) Total Bilirubin 0.5 mg/dL (0.2-1.0) Aspartate Amino Transf (AST/SGOT) 16 U/L (15-37) Alanine Aminotransferase (ALT/SGPT) 23 U/L (16-63) Alkaline Phosphatase 64 U/L (46-116) Total Protein 6.1 g/dL (6.4-8.2) Albumin 2.6 g/dL (3.4-5.0) Albumin/Globulin Ratio 0.7 (1.0-1.7) Review of Systems Review of Systems No fever Tingling in hands and feets Assessment and Plan Assessmemt and Plan Assessment: Multiple myeloma Severe sepsis Meningitis, bacterial Acute encephalopathy Hyponatremia HTN Chronic anemia ON CHEMO Thrombocytopenia Plan: Continue Antibiotics Labs PT/OT D/c when okay with ID Home meds Follow up with cultures Comment Review of Relevant I have reviewed the following items cristina (where applicable) has been applied. Labs Laboratory Tests Test 07/18/18 15:30 07/19/18 04:01 07/19/18 04:27 07/20/18 03:05 Vancomycin Level Trough 15.9 mcg/mL (10.0-20.0) Vancomycin Last Dose Date 07/18/18 Vancomycin Last Dose Time 0400 Sodium Level 142 mmol/L (136-145) 143 mmol/L (136-145) Potassium Level 3.4 mmol/L (3.5-5.1) 3.3 mmol/L (3.5-5.1) Chloride Level 107 mmol/L (98-107) 108 mmol/L (98-107) Carbon Dioxide Level 24 mmol/L (21-32) 23 mmol/L (21-32) Anion Gap 11 (6-14) 12 (6-14) Blood Urea Nitrogen 12 mg/dL (8-26) 12 mg/dL (8-26) Creatinine 0.6 mg/dL (0.7-1.3) 0.6 mg/dL (0.7-1.3) Estimated GFR (Cockcroft-Gault) 138.9 138.9 BUN/Creatinine Ratio 20 (6-20) 20 (6-20) Glucose Level 145 mg/dL (70-99) 177 mg/dL (70-99) Calcium Level 7.0 mg/dL (8.5-10.1) 6.8 mg/dL (8.5-10.1) Total Bilirubin 0.5 mg/dL (0.2-1.0) 0.5 mg/dL (0.2-1.0) Aspartate Amino Transf (AST/SGOT) 16 U/L (15-37) 16 U/L (15-37) Alanine Aminotransferase (ALT/SGPT) 17 U/L (16-63) 23 U/L (16-63) Alkaline Phosphatase 59 U/L (46-116) 64 U/L (46-116) Total Protein 6.2 g/dL (6.4-8.2) 6.1 g/dL (6.4-8.2) Albumin 2.5 g/dL (3.4-5.0) 2.6 g/dL (3.4-5.0) Albumin/Globulin Ratio 0.7 (1.0-1.7) 0.7 (1.0-1.7) White Blood Count 5.4 x10^3/uL (4.0-11.0) 5.1 x10^3/uL (4.0-11.0) Red Blood Count 2.49 x10^6/uL (4.30-5.70) 2.51 x10^6/uL (4.30-5.70) Hemoglobin 8.7 g/dL (13.0-17.5) 8.8 g/dL (13.0-17.5) Hematocrit 24.9 % (39.0-53.0) 25.2 % (39.0-53.0) Mean Corpuscular Volume 100 fL (79-100) 100 fL (79-100) Mean Corpuscular Hemoglobin 35 pg (25-35) 35 pg (25-35) Mean Corpuscular Hemoglobin Concent 35 g/dL (31-37) 35 g/dL (31-37) Red Cell Distribution Width 22.0 % (11.5-14.5) 21.9 % (11.5-14.5) Platelet Count 118 x10^3/uL (140-400) 148 x10^3/uL (140-400) Neutrophils (%) (Auto) 84 % (31-73) 85 % (31-73) Lymphocytes (%) (Auto) 10 % (24-48) 9 % (24-48) Monocytes (%) (Auto) 7 % (0-9) 6 % (0-9) Eosinophils (%) (Auto) 0 % (0-3) 0 % (0-3) Basophils (%) (Auto) 0 % (0-3) 0 % (0-3) Neutrophils # (Auto) 4.5 x10^3uL (1.8-7.7) 4.3 x10^3uL (1.8-7.7) Lymphocytes # (Auto) 0.5 x10^3/uL (1.0-4.8) 0.4 x10^3/uL (1.0-4.8) Monocytes # (Auto) 0.4 x10^3/uL (0.0-1.1) 0.3 x10^3/uL (0.0-1.1) Eosinophils # (Auto) 0.0 x10^3/uL (0.0-0.7) 0.0 x10^3/uL (0.0-0.7) Basophils # (Auto) 0.0 x10^3/uL (0.0-0.2) 0.0 x10^3/uL (0.0-0.2) Laboratory Tests Test 07/20/18 03:05 White Blood Count 5.1 x10^3/uL (4.0-11.0) Red Blood Count 2.51 x10^6/uL (4.30-5.70) Hemoglobin 8.8 g/dL (13.0-17.5) Hematocrit 25.2 % (39.0-53.0) Mean Corpuscular Volume 100 fL (79-100) Mean Corpuscular Hemoglobin 35 pg (25-35) Mean Corpuscular Hemoglobin Concent 35 g/dL (31-37) Red Cell Distribution Width 21.9 % (11.5-14.5) Platelet Count 148 x10^3/uL (140-400) Neutrophils (%) (Auto) 85 % (31-73) Lymphocytes (%) (Auto) 9 % (24-48) Monocytes (%) (Auto) 6 % (0-9) Eosinophils (%) (Auto) 0 % (0-3) Basophils (%) (Auto) 0 % (0-3) Neutrophils # (Auto) 4.3 x10^3uL (1.8-7.7) Lymphocytes # (Auto) 0.4 x10^3/uL (1.0-4.8) Monocytes # (Auto) 0.3 x10^3/uL (0.0-1.1) Eosinophils # (Auto) 0.0 x10^3/uL (0.0-0.7) Basophils # (Auto) 0.0 x10^3/uL (0.0-0.2) Sodium Level 143 mmol/L (136-145) Potassium Level 3.3 mmol/L (3.5-5.1) Chloride Level 108 mmol/L (98-107) Carbon Dioxide Level 23 mmol/L (21-32) Anion Gap 12 (6-14) Blood Urea Nitrogen 12 mg/dL (8-26) Creatinine 0.6 mg/dL (0.7-1.3) Estimated GFR (Cockcroft-Gault) 138.9 BUN/Creatinine Ratio 20 (6-20) Glucose Level 177 mg/dL (70-99) Calcium Level 6.8 mg/dL (8.5-10.1) Total Bilirubin 0.5 mg/dL (0.2-1.0) Aspartate Amino Transf (AST/SGOT) 16 U/L (15-37) Alanine Aminotransferase (ALT/SGPT) 23 U/L (16-63) Alkaline Phosphatase 64 U/L (46-116) Total Protein 6.1 g/dL (6.4-8.2) Albumin 2.6 g/dL (3.4-5.0) Albumin/Globulin Ratio 0.7 (1.0-1.7) Microbiology 07/15/18 Blood Culture - Preliminary, Resulted NO GROWTH AFTER 4 DAYS 07/15/18 Anaerobic/Aerobic Culture - Preliminary, Resulted 07/15/18 Anaerobic Culture Result 1 (ANDRY), Resulted Pending 07/15/18 Aerobic Culture - Final, Resulted 07/15/18 Aerobic Culture Result 1 (ANDRY) - Final, Resulted 07/15/18 Gram Stain - Final, Resulted 07/15/18 Gram Stain Result 1 (ANDRY) - Final, Resulted 07/15/18 Gram Stain Result 2 (ANDRY) - Final, Resulted Medications Current Medications Sodium Chloride 1,000 ml @ 1,000 mls/hr 1X ONCE IV Last administered on at 14:40; Start 07/15/18 at 14:00; Stop 07/15/18 at 14:59; Status DC Cefepime HCl 1 gm/ Dextrose 50 ml @ 100 mls/hr 1X STAT IV ; Start 07/15/18 at 13:55; Stop 07/15/18 at 14:24; Status UNV Vancomycin HCl (Vanco Per Pharmacy) 1 each PRN DAILY PRN MC SEE COMMENTS Last administered on 07/19/18at 10:36; Start 07/15/18 at 14:00; Stop 07/19/18 at 11:37 ; Status DC Cefepime HCl (Maxipime) 1 gm 1X ONCE IVP Last administered on 07/15/18at 15:47 ; Start 07/15/18 at 14:15; Stop 07/15/18 at 14:18; Status DC Vancomycin HCl 2 gm/Sodium Chloride 500 ml @ 250 mls/hr 1X ONCE IV Last administered on 07/15/18at 15:50; Start 07/15/18 at 14:30; Stop 07/15/18 at 16:29 ; Status DC Acetaminophen (Tylenol) 1,000 mg 1X ONCE PO Last administered on 07/15/18at 14: 40; Start 07/15/18 at 14:15; Stop 07/15/18 at 14:18; Status DC Fentanyl Citrate (Fentanyl 2ml Vial) 50 mcg 1X ONCE IV Last administered on at 15:01; Start 07/15/18 at 15:00; Stop 07/15/18 at 15:01; Status DC Ondansetron HCl (Zofran) 4 mg 1X ONCE IV Last administered on 07/15/18at 15:00 ; Start 07/15/18 at 15:00; Stop 07/15/18 at 15:01; Status DC Ketorolac Tromethamine (Toradol 15mg Vial) 15 mg 1X ONCE IV Last administered on 07/15/18at 15:46; Start 07/15/18 at 15:30; Stop 07/15/18 at 15:36; Status DC Fentanyl Citrate (Fentanyl 2ml Vial) 50 mcg 1X ONCE IV Last administered on at 15:43; Start 07/15/18 at 15:30; Stop 07/15/18 at 15:36; Status DC Sodium Chloride 1,000 ml @ 1,000 mls/hr 1X ONCE IV Last administered on at 16:18; Start 07/15/18 at 15:30; Stop 07/15/18 at 16:29; Status DC Metoclopramide HCl (Reglan Vial) 10 mg 1X ONCE IV Last administered on at 15:44; Start 07/15/18 at 15:30; Stop 07/15/18 at 15:36; Status DC Diphenhydramine HCl (Benadryl) 25 mg 1X ONCE IVP Last administered on at 15:44; Start 07/15/18 at 15:30; Stop 07/15/18 at 15:36; Status DC Lidocaine HCl 20 ml 1X ONCE IJ Last administered on 07/15/18at 17:41; Start at 16:15; Stop 07/15/18 at 16:18; Status DC Lorazepam (Ativan) 1 mg 1X ONCE IV Last administered on 07/15/18at 16:58; Start 07/15/18 at 16:15; Stop 07/15/18 at 16:18; Status DC Lidocaine HCl (Xylocaine-Mpf 2% Vial) 2 ml STK-MED ONCE .ROUTE ; Start 07/15/18 at 16:31; Stop 07/15/18 at 16:33; Status DC Cefepime HCl 2 gm/ Dextrose 100 ml @ 200 mls/hr Q8HRS IV ; Start 07/15/18 at 22 :00; Status UNV Sodium Chloride 1,000 ml @ 125 mls/hr Q8H IV Last administered on 07/20/18at 07 :50; Start 07/15/18 at 16:45 Fentanyl Citrate (Fentanyl 2ml Vial) 50 mcg PRN Q2HR PRN IV PAIN Last administered on 07/16/18at 01:57; Start 07/15/18 at 17:00; Stop 07/16/18 at 16:59 ; Status DC Sodium Chloride 1,000 ml @ 125 mls/hr Q8H IV ; Start 07/15/18 at 16:55; Stop 07/16/18 at 04:17; Status DC Morphine Sulfate (Morphine Sulfate) 6 mg 1X ONCE IV Last administered on at 17:57; Start 07/15/18 at 17:45; Stop 07/15/18 at 18:05; Status DC Trimethoprim/ Sulfamethoxazole 20 ml/Dextrose 500 ml @ 333.333 mls/hr Q8HRS IV ; Start 07/15/18 at 19:00; Stop 07/15/18 at 19:46; Status DC Acyclovir Sodium 730 mg/Dextrose 264.6 ml @ 264.6 mls/ hr 1X ONCE IV Last administered on 07/15/18at 18:04; Start 07/15/18 at 18:00; Stop 07/15/18 at 18:59 ; Status DC Dextrose 20 ml @ 200 mls/hr Q8HRS IV ; Start 07/15/18 at 19:00; Stop 07/15/18 at 19:46; Status DC Cefepime HCl (Maxipime) 2 gm Q8HRS IVP Last administered on 07/20/18at 06:53; Start 07/15/18 at 22:00; Stop 07/20/18 at 09:12; Status DC Vancomycin HCl 1.75 gm/Sodium Chloride 500 ml @ 250 mls/hr Q12H IV Last administered on 07/17/18at 04:08; Start 07/16/18 at 04:00; Stop 07/17/18 at 04:10 ; Status DC Vancomycin HCl (Vancomycin Trough Level) 1 each 1X ONCE MC Last administered on 07/17/18at 03:30; Start 07/17/18 at 03:30; Stop 07/17/18 at 03:31; Status DC Ampicillin Sodium 2 gm/Sodium Chloride 100 ml @ 200 mls/hr Q4HRS IV Last administered on 07/20/18at 08:11; Start 07/15/18 at 20:00; Stop 07/20/18 at 09:12 ; Status DC Dexamethasone Sodium Phosphate (Decadron) 8 mg Q8HRS IV Last administered on at 06:53; Start 07/15/18 at 22:00 Allopurinol (Zyloprim) 300 mg DAILY PO Last administered on 07/20/18at 08:10; Start 07/16/18 at 09:00 Aspirin (Debbie Aspirin) 325 mg DAILY PO Last administered on 07/20/18at 08:10; Start 07/16/18 at 09:00 Tamsulosin HCl (Flomax) 0.4 mg QHS PO Last administered on 07/19/18at 20:32; Start 07/16/18 at 21:00 Acyclovir (Zovirax) 800 mg BID PO Last administered on 07/20/18at 08:10; Start 07/16/18 at 09:00 Citalopram Hydrobromide (CeleXA) 20 mg DAILY PO Last administered on 07/20/18at 08:10; Start 07/16/18 at 09:00 Gabapentin (Neurontin) 300 mg BID PO Last administered on 07/20/18at 08:10; Start 07/16/18 at 09:00 Pantoprazole Sodium (Protonix) 40 mg DAILYAC PO Last administered on 07/20/18at 08:10; Start 07/16/18 at 07:30 Labetalol HCl (Normodyne Iv Push) 20 mg PRN Q2HR PRN IVP HYPERTENSION, SEE COMMENTS; Start 07/15/18 at 22:15; Stop 07/18/18 at 08:48; Status DC Acetaminophen/ Hydrocodone Bitart (Lortab 5/325) 1 tab PRN Q4HRS PRN PO SEVERE PAIN; Start 07/16/18 at 12:15 Acetaminophen (Tylenol) 650 mg PRN Q6HRS PRN PO FEVER Last administered on 07/20at 07:49; Start 07/16/18 at 12:30 Ondansetron HCl (Zofran) 4 mg PRN Q6HRS PRN IV NAUSEA/VOMITING 1ST CHOICE; Start 07/16/18 at 12:30 Morphine Sulfate (Morphine Sulfate) 2 mg PRN Q2HR PRN IV MODERATE TO SEVERE PAIN; Start 07/16/18 at 12:30 Tramadol HCl (Ultram) 50 mg PRN Q6HRS PRN PO MILD TO MODERATE PAIN; Start 07/16 at 12:30 Docusate Sodium (Colace) 100 mg PRN DAILY PRN PO HARD STOOLS; Start 07/16/18 at 12:30 Vancomycin HCl 2 gm/Sodium Chloride 500 ml @ 250 mls/hr Q12H IV Last administered on 07/19/18at 05:08; Start 07/17/18 at 16:00; Stop 07/19/18 at 11:37 ; Status DC Vancomycin HCl (Vancomycin Trough Level) 1 each 1X ONCE MC Last administered on 07/18/18at 15:30; Start 07/18/18 at 15:30; Stop 07/18/18 at 15:31; Status DC Diphenhydramine HCl (Benadryl) 25 mg PRN QHS PRN PO INSOMNIA Last administered on 07/19/18at 22:48; Start 07/17/18 at 23:00 Trazodone HCl (Desyrel) 50 mg PRN QHS PRN PO INSOMNIA Last administered on 07/19at 22:48; Start 07/17/18 at 23:00 Losartan Potassium (Cozaar) 50 mg DAILY PO Last administered on 07/20/18at 08:10 ; Start 07/18/18 at 09:00 Labetalol HCl (Normodyne Iv Push) 10 mg PRN Q3HRS PRN IVP HYPERTENSION, SEE COMMENTS; Start 07/18/18 at 08:45 Meropenem 1 gm/ Sodium Chloride 100 ml @ 200 mls/hr Q8HRS IV ; Start 07/20/18 at 14:00 Active Scripts Active Levaquin (Levofloxacin) 500 Mg Tablet 500 Mg PO DAILY06 Flomax (Tamsulosin Hcl) 0.4 Mg Cap.er.24h 0.4 Mg PO QHS Reported Revlimid (Lenalidomide) 25 Mg Capsule 25 Mg PO Gabapentin 300 Mg Capsule 300 Mg PO BID Sulfamethoxazole-Tmp Ds Tablet (Sulfamethoxazole/Trimethoprim) 1 Each Tablet 1 Tab PO BID Dexamethasone 4 Mg Tablet 40 Mg PO WEEKLY Acyclovir 800 Mg Tablet 1 Tab PO BID Aspirin 325 Mg Tablet 1 Tab PO DAILY Hyzaar 100-25 Tablet (Losartan/Hydrochlorothiazide) 1 Each Tablet 1 Each PO DAILY Hydrocodone-Apap 5-325 (Hydrocodone Bit/Acetaminophen) 1 Each Tablet 1 Tab PO PRN Q6HRS PRN Escitalopram Oxalate 10 Mg Tablet 10 Mg PO DAILY Flonase Allergy Relief (Fluticasone Propionate) 9.9 Ml [place].susp 2 Sprays NS DAILY Meloxicam 7.5 Mg Tablet 7.5 Mg PO DAILY Prilosec Otc (Omeprazole Magnesium) 20 Mg Tablet.dr 40 Mg PO DAILY Allopurinol 300 Mg Tablet 300 Mg PO DAILY Vitals/I & O Vital Sign - Last 24 Hours 07/19/18 07/19/18 07/19/18 07/19/18 14:54 19:44 20:00 23:20 Temp 97.5 98.1 97.9 97.5 98.1 97.9 Pulse 96 83 74 Resp 20 20 18 B/P (MAP) 162/97 (118) 158/93 (114) 145/87 (106) Pulse Ox 98 100 O2 Delivery Room Air Room Air Room Air Room Air O2 Flow Rate 2.0 07/20/18 07/20/18 07/20/18 07/20/18 03:20 07:10 08:00 08:10 Temp 97.7 97.5 97.7 97.5 Pulse 74 76 76 Resp 18 20 B/P (MAP) 146/93 (110) 152/101 (118) 152/101 Pulse Ox 96 97 O2 Delivery Room Air Room Air Room Air 07/20/18 07/20/18 10:15 11:07 Temp 95.5 95.5 Pulse 76 Resp 16 B/P (MAP) 157/82 (107) O2 Delivery Room Air Room Air Intake and Output 07/19/18 07/19/18 07/20/18 15:00 23:00 07:00 Intake Total 1900 ml 1050 ml Balance 1900 ml 1050 ml Nutrition Consultation Dietary Evaluation: Recommendations by RD: Increase Calorie Intake Comments: continue w/regular diet as ordered if PO intake is not consistently >50% of meals, recommend adding oral supplements to improve calorie/protein intake Expected Outcomes/Goals: PO intake to meet >75% est needs Malnutrition Findings: Food and Nutrition Intake (Mod: <75% est energy req 7days Weight Status: Obese FRANCISCO KO III DO Jul 20, 2018 11:33
[2018-07-20] MEDS ORDERED: MEROPENEM 1 GM in IV NORMAL SALINE 100ML 100 ML IV SCH (14:00)
[2018-07-20 19:00] VITALS: BP 161/87
[2018-07-20] MEDS: TAMSULOSIN 0.4 MG CAP.ER.24H. PO SCH (20:14)
[2018-07-20] MEDS: traZODone 50 MG TABLET. PO PRN (22:13)
[2018-07-20] MEDS: diphenhydrAMINE HCL 25 MG CAPSULE PO PRN (22:13)
[2018-07-20] MEDS: MEROPENEM 2 GM in IV NORMAL SALINE 100ML 100 ML IV SCH (22:14)
[2018-07-20 23:00] VITALS: BP 153/99
[2018-07-21 03:00] VITALS: BP 170/98
[2018-07-21] MEDS: LABETALOL 20 MG/4 ML DISP.SYRIN. IVP PRN ×2 (03:53→10:55)
[2018-07-21 04:43] LABS: BASO % 0 % (0-3); EOS % 0 % (0-3); HEMATOCRIT 27.5 % (39.0-53.0); HEMOGLOBIN 9.7 g/dL (13.0-17.5); LYMPH # 0.5 x10^3/uL (1.0-4.8); LYMPH % 10 % (24-48); MEAN CORPUSCULAR HEMOGLOBIN 35 pg (25-35); MEAN CORPUSCULAR HGB CONC 35 g/dL (31-37); MEAN CORPUSCULAR VOLUME 100 fL (79-100); MONO # 0.3 x10^3/uL (0.0-1.1); MONO % 6 % (0-9); NEUT # 4.5 x10^3uL (1.8-7.7); NEUT % 85 % (31-73); PLATELET COUNT 182 x10^3/uL (140-400); RED BLOOD COUNT 2.76 x10^6/uL (4.30-5.70); RED CELL DISTRIBUTION WIDTH 21.7 % (11.5-14.5); WHITE BLOOD COUNT 5.4 x10^3/uL (4.0-11.0)
[2018-07-21 05:05] LABS: ALBUMIN 2.7 g/dL (3.4-5.0); ALBUMIN/GLOBULIN RATIO 0.7 (1.0-1.7); CALCIUM 7.2 mg/dL (8.5-10.1); TOTAL PROTEIN 6.4 g/dL (6.4-8.2)
[2018-07-21 05:06] LABS: CREATININE 0.7 mg/dL (0.7-1.3); GFR 116.2; POTASSIUM 3.6 mmol/L (3.5-5.1); TOTAL BILIRUBIN 0.6 mg/dL (0.2-1.0)
[2018-07-21] MEDS: DEXAMETHASONE SOD PHOS 4 MG/ML VIAL IV SCH ×3 (05:51→22:25)
[2018-07-21] MEDS: MEROPENEM 2 GM in IV NORMAL SALINE 100ML 100 ML IV SCH ×3 (05:51→22:26)
[2018-07-21] MEDS: IV NORMAL SALINE 1000ML BAG 1,000 ML IV SCH ×2 (05:57→12:40)
[2018-07-21 07:00] VITALS: BP 155/93
[2018-07-21] MEDS: ALLOPURINOL 300 MG TABLET. PO SCH (08:15)
[2018-07-21] MEDS: CITALOPRAM 20 MG TABLET. PO SCH (08:15)
[2018-07-21] MEDS: LOSARTAN POTASSIUM 50 MG TABLET. PO SCH (08:16)
[2018-07-21] MEDS: ACYCLOVIR 200 MG CAPSULE. PO SCH ×2 (08:16→20:05)
[2018-07-21] MEDS: ASPIRIN 325 MG TABLET PO SCH (08:16)
[2018-07-21] MEDS: GABAPENTIN 300 MG CAPSULE. PO SCH ×2 (08:16→20:04)
[2018-07-21] MEDS: PANTOPRAZOLE 40 MG TABLET.DR. PO SCH (08:16)
--- NOTE | 2018-07-21 09:37 | PDOC ---
Infectious Disease Note Vital Signs: Vital Signs Vital Signs Date Time Temp Pulse Resp B/P (MAP) Pulse Ox O2 Delivery O2 Flow Rate FiO2 07/21/18 08:16 74 155/93 07/21/18 07:14 Room Air 07/21/18 07:00 97.7 18 98 97.7 Medications: Inpatient Meds: Current Medications Medications (Trade) Dose Ordered Sig/Miguelina Start Time Stop Time Status Last Admin Dose Admin Acetaminophen (Tylenol) 650 mg PRN Q6HRS PRN 07/16/18 12:30 07/20/18 20:20 650 MG Acetaminophen/ Hydrocodone Bitart (Lortab 5/325) 1 tab PRN Q4HRS PRN 07/16/18 12:15 Acyclovir (Zovirax) 800 mg BID 07/16/18 09:00 07/21/18 08:16 800 MG Acyclovir Sodium 730 mg/Dextrose 264.6 ml @ 264.6 mls/ hr 1X ONCE 07/15/18 18:00 07/15/18 18:59 DC 07/15/18 18:04 264.6 MLS/HR Allopurinol (Zyloprim) 300 mg DAILY 07/16/18 09:00 07/21/18 08:15 300 MG Ampicillin Sodium 2 gm/Sodium Chloride 100 ml @ 200 mls/hr Q4HRS 07/15/18 20:00 07/20/18 09:12 DC 07/20/18 08:11 200 MLS/HR Aspirin (Debbie Aspirin) 325 mg DAILY 07/16/18 09:00 07/21/18 08:16 325 MG Cefepime HCl (Maxipime) 2 gm Q8HRS 07/15/18 22:00 07/20/18 09:12 DC 07/20/18 06:53 2 GM Cefepime HCl 1 gm/ Dextrose 50 ml @ 100 mls/hr 1X STAT 07/15/18 13:55 07/15/18 14:24 UNV Cefepime HCl 2 gm/ Dextrose 100 ml @ 200 mls/hr Q8HRS 07/15/18 22:00 UNV Citalopram Hydrobromide (CeleXA) 20 mg DAILY 07/16/18 09:00 07/21/18 08:15 20 MG Dexamethasone Sodium Phosphate (Decadron) 8 mg Q8HRS 07/15/18 22:00 07/21/18 05:51 8 MG Dextrose 20 ml @ 200 mls/hr Q8HRS 07/15/18 19:00 07/15/18 19:46 DC Diphenhydramine HCl (Benadryl) 25 mg PRN QHS PRN 07/17/18 23:00 07/20/18 22:13 25 MG Docusate Sodium (Colace) 100 mg PRN DAILY PRN 07/16/18 12:30 Fentanyl Citrate (Fentanyl 2ml Vial) 50 mcg PRN Q2HR PRN 07/15/18 17:00 07/16/18 16:59 DC 07/16/18 01:57 50 MCG Gabapentin (Neurontin) 300 mg BID 07/16/18 09:00 07/21/18 08:16 300 MG Ketorolac Tromethamine (Toradol 15mg Vial) 15 mg 1X ONCE 07/15/18 15:30 07/15/18 15:36 DC 07/15/18 15:46 15 MG Labetalol HCl (Normodyne Iv Push) 10 mg PRN Q3HRS PRN 07/18/18 08:45 07/21/18 03:53 10 MG Lidocaine HCl (Xylocaine-Mpf 2% Vial) 2 ml STK-MED ONCE 07/15/18 16:31 07/15/18 16:33 DC Lorazepam (Ativan) 1 mg 1X ONCE 07/15/18 16:15 07/15/18 16:18 DC 07/15/18 16:58 1 MG Losartan Potassium (Cozaar) 50 mg DAILY 07/18/18 09:00 07/21/18 08:16 50 MG Meropenem 1 gm/ Sodium Chloride 100 ml @ 200 mls/hr Q8HRS 07/20/18 14:00 07/20/18 18:17 DC 07/20/18 15:09 200 MLS/HR Meropenem 2 gm/ Sodium Chloride 100 ml @ 200 mls/hr Q8HRS 07/20/18 22:00 07/21/18 05:51 200 MLS/HR Metoclopramide HCl (Reglan Vial) 10 mg 1X ONCE 07/15/18 15:30 07/15/18 15:36 DC 07/15/18 15:44 10 MG Morphine Sulfate (Morphine Sulfate) 2 mg PRN Q2HR PRN 07/16/18 12:30 Ondansetron HCl (Zofran) 4 mg PRN Q6HRS PRN 07/16/18 12:30 Pantoprazole Sodium (Protonix) 40 mg DAILYAC 07/16/18 07:30 07/21/18 08:16 40 MG Sodium Chloride 1,000 ml @ 125 mls/hr Q8H 07/15/18 16:55 07/16/18 04:17 DC Tamsulosin HCl (Flomax) 0.4 mg QHS 07/16/18 21:00 07/20/18 20:14 0.4 MG Tramadol HCl (Ultram) 50 mg PRN Q6HRS PRN 07/16/18 12:30 Trazodone HCl (Desyrel) 50 mg PRN QHS PRN 07/17/18 23:00 07/20/18 22:13 50 MG Trimethoprim/ Sulfamethoxazole 20 ml/Dextrose 500 ml @ 333.333 mls/hr Q8HRS 07/15/18 19:00 07/15/18 19:46 DC Vancomycin HCl (Vanco Per Pharmacy) 1 each PRN DAILY PRN 07/15/18 14:00 07/19/18 11:37 DC 07/19/18 10:36 1 EACH Vancomycin HCl (Vancomycin Trough Level) 1 each 1X ONCE 07/18/18 15:30 07/18/18 15:31 DC 07/18/18 15:30 1 EACH Vancomycin HCl 1.75 gm/Sodium Chloride 500 ml @ 250 mls/hr Q12H 07/16/18 04:00 07/17/18 04:10 DC 07/17/18 04:08 250 MLS/HR Vancomycin HCl 2 gm/Sodium Chloride 500 ml @ 250 mls/hr Q12H 07/17/18 16:00 07/19/18 11:37 DC 07/19/18 05:08 250 MLS/HR Labs: Lab Laboratory Tests Test 07/21/18 04:00 White Blood Count 5.4 x10^3/uL (4.0-11.0) Red Blood Count 2.76 x10^6/uL (4.30-5.70) Hemoglobin 9.7 g/dL (13.0-17.5) Hematocrit 27.5 % (39.0-53.0) Mean Corpuscular Volume 100 fL (79-100) Mean Corpuscular Hemoglobin 35 pg (25-35) Mean Corpuscular Hemoglobin Concent 35 g/dL (31-37) Red Cell Distribution Width 21.7 % (11.5-14.5) Platelet Count 182 x10^3/uL (140-400) Neutrophils (%) (Auto) 85 % (31-73) Lymphocytes (%) (Auto) 10 % (24-48) Monocytes (%) (Auto) 6 % (0-9) Eosinophils (%) (Auto) 0 % (0-3) Basophils (%) (Auto) 0 % (0-3) Neutrophils # (Auto) 4.5 x10^3uL (1.8-7.7) Lymphocytes # (Auto) 0.5 x10^3/uL (1.0-4.8) Monocytes # (Auto) 0.3 x10^3/uL (0.0-1.1) Eosinophils # (Auto) 0.0 x10^3/uL (0.0-0.7) Basophils # (Auto) 0.0 x10^3/uL (0.0-0.2) Sodium Level 142 mmol/L (136-145) Potassium Level 3.6 mmol/L (3.5-5.1) Chloride Level 106 mmol/L (98-107) Carbon Dioxide Level 24 mmol/L (21-32) Anion Gap 12 (6-14) Blood Urea Nitrogen 13 mg/dL (8-26) Creatinine 0.7 mg/dL (0.7-1.3) Estimated GFR (Cockcroft-Gault) 116.2 BUN/Creatinine Ratio 19 (6-20) Glucose Level 171 mg/dL (70-99) Calcium Level 7.2 mg/dL (8.5-10.1) Total Bilirubin 0.6 mg/dL (0.2-1.0) Aspartate Amino Transf (AST/SGOT) 27 U/L (15-37) Alanine Aminotransferase (ALT/SGPT) 35 U/L (16-63) Alkaline Phosphatase 75 U/L (46-116) Total Protein 6.4 g/dL (6.4-8.2) Albumin 2.7 g/dL (3.4-5.0) Albumin/Globulin Ratio 0.7 (1.0-1.7) Micro RUN DATE: 07/18/18 PAGE 1 RUN TIME: 7529 [facility] [address] [place] [address] Rojas Baker M.D., Linux Engineer PATIENT: JOHN FORTE ACCT: [id number] LOC: [address] [place] [address] U : [id number] AGE/SX: 58/M ROOM: [facility] REG : 07/15/[address]: ANAYELI FLOWERS MD : 1960 BED: 1 DIS : STATUS: ADM IN TLOC: SPEC #: [id number] CONCHA: 07/15/18 STATUS: RES REQ #: [id number] RECD: 07/15/18 [facility] [address]: JULIANNA PETERSON MD SOURCE: CSF ENTR: 07/15/18 [facility] DR: SUSAN BOX APRN [facility]: ORDERED: ANAER/AERSEVERO/MONICA Procedure Result ANAEROBIC-AEROBIC CULTURE PENDING ANAEROBIC RES 1 PENDING AEROBIC CULT Preliminary Preliminary report AEROBIC RES 1 Preliminary Comment No growth in 36 - 48 hours. GRAM STAIN Final Final report GRAM STAIN RES 1 Final Comment Few white blood cells. GRAM STAIN RES 2 Final No organisms seen Performed at: - [facility] [address], [place], [place] [id number] Night Clerk: PATO Pearl MD, Phone: [phone] Objective: Assessment: Headache, fever in an immunosuppressed patient - improved Cerebrospinal fluid pleocytosis consistent with meningitis, most likely bacterial meningitis. - 07/15. CSF WBC 4068, glucose 45, T protein 318.8. G/S ,many wbcs, no organisms CSF C/S neg so far - HSV 1 &[address] head neg for abscess/sinus disease Multiple myeloma, on chemotherapy. Plan: Plan of Care duplicate note J LUIS LONGORIA MD Jul 21, 2018 09:37
[2018-07-21 10:40] VITALS: BP 165/89
--- NOTE | 2018-07-21 11:20 | PDOC ---
Infectious Disease Note Subjective: Subjective pt denies any f/c/n/v/d/abdo pain/sob Cont to have Chronic visual changes Denies VALENZUELA/photophobia no rash has some sinus stuffiness or but no sinus tenderness has swelling of both lower ext from steroids ROS: ROS Negative except for above. Vital Signs: Vital Signs Vital Signs Date Time Temp Pulse Resp B/P (MAP) Pulse Ox O2 Delivery O2 Flow Rate FiO2 07/21/18 10:55 79 165/89 07/21/18 10:40 99.1 16 97 Room Air 99.1 Physical Exam: PHYSICAL EXAM GENERAL: Propped up in bed, AXOX3 in no acute distress HENT: PERRL. no icterus, Oral cavity, pharynx pink and moist. Sinuses nontender NECK: Supple LUNGS: Clear CV: S1, S2 ABDOMEN: Soft, NT EXT: No gross edema or cyanosis SKIN: warm without rash RECOVERY OPERATOR: AXOX3, nonfocal PIV Medications: Inpatient Meds: Current Medications Medications (Trade) Dose Ordered Sig/Miguelina Start Time Stop Time Status Last Admin Dose Admin Acetaminophen (Tylenol) 650 mg PRN Q6HRS PRN 07/16/18 12:30 07/20/18 20:20 650 MG Acetaminophen/ Hydrocodone Bitart (Lortab 5/325) 1 tab PRN Q4HRS PRN 07/16/18 12:15 Acyclovir (Zovirax) 800 mg BID 07/16/18 09:00 07/21/18 08:16 800 MG Acyclovir Sodium 730 mg/Dextrose 264.6 ml @ 264.6 mls/ hr 1X ONCE 07/15/18 18:00 07/15/18 18:59 DC 07/15/18 18:04 264.6 MLS/HR Allopurinol (Zyloprim) 300 mg DAILY 07/16/18 09:00 07/21/18 08:15 300 MG Ampicillin Sodium 2 gm/Sodium Chloride 100 ml @ 200 mls/hr Q4HRS 07/15/18 20:00 07/20/18 09:12 DC 07/20/18 08:11 200 MLS/HR Aspirin (Debbie Aspirin) 325 mg DAILY 07/16/18 09:00 07/21/18 08:16 325 MG Cefepime HCl (Maxipime) 2 gm Q8HRS 07/15/18 22:00 07/20/18 09:12 DC 07/20/18 06:53 2 GM Cefepime HCl 1 gm/ Dextrose 50 ml @ 100 mls/hr 1X STAT 07/15/18 13:55 07/15/18 14:24 UNV Cefepime HCl 2 gm/ Dextrose 100 ml @ 200 mls/hr Q8HRS 07/15/18 22:00 UNV Citalopram Hydrobromide (CeleXA) 20 mg DAILY 07/16/18 09:00 07/21/18 08:15 20 MG Dexamethasone Sodium Phosphate (Decadron) 8 mg Q8HRS 07/15/18 22:00 07/21/18 05:51 8 MG Dextrose 20 ml @ 200 mls/hr Q8HRS 07/15/18 19:00 07/15/18 19:46 DC Diphenhydramine HCl (Benadryl) 25 mg PRN QHS PRN 07/17/18 23:00 07/20/18 22:13 25 MG Docusate Sodium (Colace) 100 mg PRN DAILY PRN 07/16/18 12:30 Fentanyl Citrate (Fentanyl 2ml Vial) 50 mcg PRN Q2HR PRN 07/15/18 17:00 07/16/18 16:59 DC 07/16/18 01:57 50 MCG Gabapentin (Neurontin) 300 mg BID 07/16/18 09:00 07/21/18 08:16 300 MG Ketorolac Tromethamine (Toradol 15mg Vial) 15 mg 1X ONCE 07/15/18 15:30 07/15/18 15:36 DC 07/15/18 15:46 15 MG Labetalol HCl (Normodyne Iv Push) 10 mg PRN Q3HRS PRN 07/18/18 08:45 07/21/18 10:55 10 MG Lidocaine HCl (Xylocaine-Mpf 2% Vial) 2 ml STK-MED ONCE 07/15/18 16:31 07/15/18 16:33 DC Lorazepam (Ativan) 1 mg 1X ONCE 07/15/18 16:15 07/15/18 16:18 DC 07/15/18 16:58 1 MG Losartan Potassium (Cozaar) 50 mg DAILY 07/18/18 09:00 07/21/18 08:16 50 MG Meropenem 1 gm/ Sodium Chloride 100 ml @ 200 mls/hr Q8HRS 07/20/18 14:00 07/20/18 18:17 DC 07/20/18 15:09 200 MLS/HR Meropenem 2 gm/ Sodium Chloride 100 ml @ 200 mls/hr Q8HRS 07/20/18 22:00 07/21/18 05:51 200 MLS/HR Metoclopramide HCl (Reglan Vial) 10 mg 1X ONCE 07/15/18 15:30 07/15/18 15:36 DC 07/15/18 15:44 10 MG Morphine Sulfate (Morphine Sulfate) 2 mg PRN Q2HR PRN 07/16/18 12:30 Ondansetron HCl (Zofran) 4 mg PRN Q6HRS PRN 07/16/18 12:30 Pantoprazole Sodium (Protonix) 40 mg DAILYAC 07/16/18 07:30 07/21/18 08:16 40 MG Sodium Chloride 1,000 ml @ 125 mls/hr Q8H 07/15/18 16:55 07/16/18 04:17 DC Tamsulosin HCl (Flomax) 0.4 mg QHS 07/16/18 21:00 07/20/18 20:14 0.4 MG Tramadol HCl (Ultram) 50 mg PRN Q6HRS PRN 07/16/18 12:30 Trazodone HCl (Desyrel) 50 mg PRN QHS PRN 07/17/18 23:00 07/20/18 22:13 50 MG Trimethoprim/ Sulfamethoxazole 20 ml/Dextrose 500 ml @ 333.333 mls/hr Q8HRS 07/15/18 19:00 07/15/18 19:46 DC Vancomycin HCl (Vanco Per Pharmacy) 1 each PRN DAILY PRN 07/15/18 14:00 07/19/18 11:37 DC 07/19/18 10:36 1 EACH Vancomycin HCl (Vancomycin Trough Level) 1 each 1X ONCE 07/18/18 15:30 07/18/18 15:31 DC 07/18/18 15:30 1 EACH Vancomycin HCl 1.75 gm/Sodium Chloride 500 ml @ 250 mls/hr Q12H 07/16/18 04:00 07/17/18 04:10 DC 07/17/18 04:08 250 MLS/HR Vancomycin HCl 2 gm/Sodium Chloride 500 ml @ 250 mls/hr Q12H 07/17/18 16:00 07/19/18 11:37 DC 07/19/18 05:08 250 MLS/HR Labs: Lab Laboratory Tests Test 07/21/18 04:00 White Blood Count 5.4 x10^3/uL (4.0-11.0) Red Blood Count 2.76 x10^6/uL (4.30-5.70) Hemoglobin 9.7 g/dL (13.0-17.5) Hematocrit 27.5 % (39.0-53.0) Mean Corpuscular Volume 100 fL (79-100) Mean Corpuscular Hemoglobin 35 pg (25-35) Mean Corpuscular Hemoglobin Concent 35 g/dL (31-37) Red Cell Distribution Width 21.7 % (11.5-14.5) Platelet Count 182 x10^3/uL (140-400) Neutrophils (%) (Auto) 85 % (31-73) Lymphocytes (%) (Auto) 10 % (24-48) Monocytes (%) (Auto) 6 % (0-9) Eosinophils (%) (Auto) 0 % (0-3) Basophils (%) (Auto) 0 % (0-3) Neutrophils # (Auto) 4.5 x10^3uL (1.8-7.7) Lymphocytes # (Auto) 0.5 x10^3/uL (1.0-4.8) Monocytes # (Auto) 0.3 x10^3/uL (0.0-1.1) Eosinophils # (Auto) 0.0 x10^3/uL (0.0-0.7) Basophils # (Auto) 0.0 x10^3/uL (0.0-0.2) Sodium Level 142 mmol/L (136-145) Potassium Level 3.6 mmol/L (3.5-5.1) Chloride Level 106 mmol/L (98-107) Carbon Dioxide Level 24 mmol/L (21-32) Anion Gap 12 (6-14) Blood Urea Nitrogen 13 mg/dL (8-26) Creatinine 0.7 mg/dL (0.7-1.3) Estimated GFR (Cockcroft-Gault) 116.2 BUN/Creatinine Ratio 19 (6-20) Glucose Level 171 mg/dL (70-99) Calcium Level 7.2 mg/dL (8.5-10.1) Total Bilirubin 0.6 mg/dL (0.2-1.0) Aspartate Amino Transf (AST/SGOT) 27 U/L (15-37) Alanine Aminotransferase (ALT/SGPT) 35 U/L (16-63) Alkaline Phosphatase 75 U/L (46-116) Total Protein 6.4 g/dL (6.4-8.2) Albumin 2.7 g/dL (3.4-5.0) Albumin/Globulin Ratio 0.7 (1.0-1.7) Micro RUN DATE: 07/18/18 PAGE 1 RUN TIME: 5761 [facility] [address] [place] [address] Rojas Baker M.D., [employer]o Dealer PATIENT: JOHN FORTE ACCT: [id number] LOC: [address] [place] [address] U : [id number] AGE/SX: 58/M ROOM: [facility] REG : 07/15/[address]: ANAYELI FLOWERS MD : 1960 BED: 1 DIS : STATUS: ADM IN TLOC: SPEC #: [id number] CONCHA: 07/15/186 STATUS: RES REQ #: [id number] RECD: 07/15/[address]: JULIANNA PETERSON MD SOURCE: CSF ENTR: 07/15/18160 [facility] DR: SUSAN BOX APRN [facility]: ORDERED: ANAER/AEROB/GS Procedure Result ANAEROBIC-AEROBIC CULTURE PENDING ANAEROBIC RES 1 PENDING AEROBIC CULT Preliminary Preliminary report AEROBIC RES 1 Preliminary Comment No growth in 36 - 48 hours. GRAM STAIN Final Final report GRAM STAIN RES 1 Final Comment Few white blood cells. GRAM STAIN RES 2 Final No organisms seen Performed at: [address], [place], [place] [id number] Pants Cutter: PATO Pearl MD, Phone: [phone] Objective: Assessment: Headache, fever in an immunosuppressed patient - improved Cerebrospinal fluid pleocytosis consistent with meningitis, most likely bacterial meningitis. - 07/15. CSF WBC 4068, glucose 45, T protein 318.8. G/S ,many wbcs, no organisms CSF C/S neg so far - HSV 1 &2 PCR negative; WNV IgM negative CT head neg for abscess/sinus disease Multiple myeloma, on chemotherapy. Fever, improved Encephalopathy, which has improved. PCN & amoxicillin causing stomach upset , Hypertension. Hyperlipidemia. Gastroesophageal reflux disease. thrombocytopenia,mild Plan: Plan of Care Pt is ready for discharge cont empiric merrem for 8 more days mid line, s/e of antibiotics and midlinecomplications discussed labs next thursday on 07/26 cbc/bun/creat,fax results to [phone] probiotics f/u with us in 2 weeks D/W RN and J LUIS Cortez MD Jul 21, 2018 11:20
[2018-07-21] MEDS ORDERED: LIDOCAINE WITH 8.4% SOD BICARB 3 ML DISP.SYRIN. ONE (12:54)
--- NOTE | 2018-07-21 13:05 | DISCH ---
DISCHARGE WITH HOME HEALTH DISCHARGE INFORMATION: Final Diagnosis: Problems Medical Problems: (1) Altered mental status Status: Acute Condition on Discharge: Stable CODE STATUS: Code Status: Full HOME HEALTH: Face to Face: I certify this patient is under my care and that I, or a nurse practitioner or physician's veterinary assistant working with me, had a face to face encounter that meets the physician face to face encounter requirements with this patient on []. Physical Therapy For: Evalulation/Treatment Occupational Therapy For: Evaluation/Treatment Home Health Aide For: Self-care POST DISCHARGE ORDERS: Activity Instructions for Disc: Resume previous activity, Avoid exertion DIET AFTER DISCHARGE: Cardiac CHECKS AFTER DISCHARGE: Checks after discharge: Check blood press - daily TREATMENT/EQUIPMENT ORDERS: Adaptive Equipment Issued: None CERTIFICATION STATEMENT: Certification Statement: Certification Statement: Based on the above finding, I certify that this patient is confined to the home and needs intermittent fdc care, physical therapy and/or speech therapy, or continues to need occupational therapy.~ This patient is under my care, and I have initiated the establishment of the plan of care.~ This patient will be followed by myself or a community physician who will periodically review the plan of care. Home Meds Active Scripts Levofloxacin (LEVAQUIN) 500 Mg Tablet, 500 MG PO DAILY06, #7 TAB Prov:ANAYELI FLOWERS MD 07/13/18 Tamsulosin Hcl (FLOMAX) 0.4 Mg Cap.er.24h, 0.4 MG PO QHS, #30 CAP.SR 1 Refill Prov:ANAYELI FLOWERS MD 07/13/18 Reported Medications Lenalidomide (REVLIMID) 25 Mg Capsule, 25 MG PO, CAP 07/09/18 Gabapentin (GABAPENTIN) 300 Mg Capsule, 300 MG PO BID, CAP 07/09/18 Sulfamethoxazole/Trimethoprim (SULFAMETHOXAZOLE-TMP DS TABLET) 1 Each Tablet, 1 TAB PO BID, #14 TAB 07/09/18 Dexamethasone (DEXAMETHASONE) 4 Mg Tablet, 40 MG PO WEEKLY, TAB 07/09/18 Acyclovir (ACYCLOVIR) 800 Mg Tablet, 1 TAB PO BID, #50 TAB 07/09/18 Aspirin (ASPIRIN) 325 Mg Tablet, 1 TAB PO DAILY, #30 TAB 5 Refills 07/09/18 Losartan/Hydrochlorothiazide (HYZAAR 100-25 TABLET) 1 Each Tablet, 1 EACH PO DAILY, TAB 06/25/18 Hydrocodone Bit/Acetaminophen (HYDROCODONE-APAP 5-325 ) 1 Each Tablet, 1 TAB PO PRN Q6HRS PRN for PAIN, TAB 0 Refills 06/25/18 Escitalopram Oxalate (ESCITALOPRAM OXALATE) 10 Mg Tablet, 10 MG PO DAILY for ANTI-DEPRESSANT, #30 TAB 0 Refills 06/25/18 Fluticasone Propionate (Flonase Allergy Relief) 9.9 Ml Bostic.susp, 2 SPRAYS NS DAILY, BOTTLE 06/11/18 Meloxicam (MELOXICAM) 7.5 Mg Tablet, 7.5 MG PO DAILY, TAB 12/04/15 Omeprazole Magnesium (PRILOSEC OTC) 20 Mg Tablet.dr, 40 MG PO DAILY, TAB 04/27/14 Allopurinol (ALLOPURINOL) 300 Mg Tablet, 300 MG PO DAILY, TAB 04/27/14 FRANCISCO KO III DO Jul 21, 2018 13:05
[2018-07-21] MEDS ORDERED: LIDOCAINE WITH 8.4% SOD BICARB 3 ML DISP.SYRIN. INJ ONE (13:15)
--- NOTE | 2018-07-21 13:22 | PDOC ---
PROGRESS NOTES Chief Complaint Chief Complaint Multiple myeloma Severe sepsis Meningitis, bacterial Acute encephalopathy Hyponatremia HTN Chronic anemia ON CHEMO Thrombocytopenia History of Present Illness History of Present Illness Pt seen and examined Dw RN Improved fever Continued b/l tingling in upper and lower distal extremities Vitals Vitals Vital Signs Date Time Temp Pulse Resp B/P (MAP) Pulse Ox O2 Delivery O2 Flow Rate FiO2 07/21/18 10:55 79 165/89 07/21/18 10:40 99.1 16 97 Room Air 99.1 Physical Exam General: Alert, Oriented X3, No acute distress Heart: Normal S1, Normal S2 Lungs: Clear Abdomen: Normal bowel sounds, Soft Extremities: No cyanosis, No edema Skin: No rashes, No significant lesion Labs LABS Laboratory Tests Test 07/21/18 04:00 White Blood Count 5.4 x10^3/uL (4.0-11.0) Red Blood Count 2.76 x10^6/uL (4.30-5.70) Hemoglobin 9.7 g/dL (13.0-17.5) Hematocrit 27.5 % (39.0-53.0) Mean Corpuscular Volume 100 fL (79-100) Mean Corpuscular Hemoglobin 35 pg (25-35) Mean Corpuscular Hemoglobin Concent 35 g/dL (31-37) Red Cell Distribution Width 21.7 % (11.5-14.5) Platelet Count 182 x10^3/uL (140-400) Neutrophils (%) (Auto) 85 % (31-73) Lymphocytes (%) (Auto) 10 % (24-48) Monocytes (%) (Auto) 6 % (0-9) Eosinophils (%) (Auto) 0 % (0-3) Basophils (%) (Auto) 0 % (0-3) Neutrophils # (Auto) 4.5 x10^3uL (1.8-7.7) Lymphocytes # (Auto) 0.5 x10^3/uL (1.0-4.8) Monocytes # (Auto) 0.3 x10^3/uL (0.0-1.1) Eosinophils # (Auto) 0.0 x10^3/uL (0.0-0.7) Basophils # (Auto) 0.0 x10^3/uL (0.0-0.2) Sodium Level 142 mmol/L (136-145) Potassium Level 3.6 mmol/L (3.5-5.1) Chloride Level 106 mmol/L (98-107) Carbon Dioxide Level 24 mmol/L (21-32) Anion Gap 12 (6-14) Blood Urea Nitrogen 13 mg/dL (8-26) Creatinine 0.7 mg/dL (0.7-1.3) Estimated GFR (Cockcroft-Gault) 116.2 BUN/Creatinine Ratio 19 (6-20) Glucose Level 171 mg/dL (70-99) Calcium Level 7.2 mg/dL (8.5-10.1) Total Bilirubin 0.6 mg/dL (0.2-1.0) Aspartate Amino Transf (AST/SGOT) 27 U/L (15-37) Alanine Aminotransferase (ALT/SGPT) 35 U/L (16-63) Alkaline Phosphatase 75 U/L (46-116) Total Protein 6.4 g/dL (6.4-8.2) Albumin 2.7 g/dL (3.4-5.0) Albumin/Globulin Ratio 0.7 (1.0-1.7) Review of Systems Review of Systems No fever Hunger pain Assessment and Plan Assessmemt and Plan Assessment: Multiple myeloma Severe sepsis Meningitis, bacterial Acute encephalopathy Hyponatremia HTN Chronic anemia ON CHEMO Thrombocytopenia Plan: Midline Discharge if social service can arrange IV antibiotics Merrem Ondansetron prn PPI Gabapentin Labs Home meds Comment Review of Relevant I have reviewed the following items cristina (where applicable) has been applied. Labs Laboratory Tests Test 07/20/18 03:05 07/21/18 04:00 White Blood Count 5.1 x10^3/uL (4.0-11.0) 5.4 x10^3/uL (4.0-11.0) Red Blood Count 2.51 x10^6/uL (4.30-5.70) 2.76 x10^6/uL (4.30-5.70) Hemoglobin 8.8 g/dL (13.0-17.5) 9.7 g/dL (13.0-17.5) Hematocrit 25.2 % (39.0-53.0) 27.5 % (39.0-53.0) Mean Corpuscular Volume 100 fL (79-100) 100 fL (79-100) Mean Corpuscular Hemoglobin 35 pg (25-35) 35 pg (25-35) Mean Corpuscular Hemoglobin Concent 35 g/dL (31-37) 35 g/dL (31-37) Red Cell Distribution Width 21.9 % (11.5-14.5) 21.7 % (11.5-14.5) Platelet Count 148 x10^3/uL (140-400) 182 x10^3/uL (140-400) Neutrophils (%) (Auto) 85 % (31-73) 85 % (31-73) Lymphocytes (%) (Auto) 9 % (24-48) 10 % (24-48) Monocytes (%) (Auto) 6 % (0-9) 6 % (0-9) Eosinophils (%) (Auto) 0 % (0-3) 0 % (0-3) Basophils (%) (Auto) 0 % (0-3) 0 % (0-3) Neutrophils # (Auto) 4.3 x10^3uL (1.8-7.7) 4.5 x10^3uL (1.8-7.7) Lymphocytes # (Auto) 0.4 x10^3/uL (1.0-4.8) 0.5 x10^3/uL (1.0-4.8) Monocytes # (Auto) 0.3 x10^3/uL (0.0-1.1) 0.3 x10^3/uL (0.0-1.1) Eosinophils # (Auto) 0.0 x10^3/uL (0.0-0.7) 0.0 x10^3/uL (0.0-0.7) Basophils # (Auto) 0.0 x10^3/uL (0.0-0.2) 0.0 x10^3/uL (0.0-0.2) Sodium Level 143 mmol/L (136-145) 142 mmol/L (136-145) Potassium Level 3.3 mmol/L (3.5-5.1) 3.6 mmol/L (3.5-5.1) Chloride Level 108 mmol/L (98-107) 106 mmol/L (98-107) Carbon Dioxide Level 23 mmol/L (21-32) 24 mmol/L (21-32) Anion Gap 12 (6-14) 12 (6-14) Blood Urea Nitrogen 12 mg/dL (8-26) 13 mg/dL (8-26) Creatinine 0.6 mg/dL (0.7-1.3) 0.7 mg/dL (0.7-1.3) Estimated GFR (Cockcroft-Gault) 138.9 116.2 BUN/Creatinine Ratio 20 (6-20) 19 (6-20) Glucose Level 177 mg/dL (70-99) 171 mg/dL (70-99) Calcium Level 6.8 mg/dL (8.5-10.1) 7.2 mg/dL (8.5-10.1) Total Bilirubin 0.5 mg/dL (0.2-1.0) 0.6 mg/dL (0.2-1.0) Aspartate Amino Transf (AST/SGOT) 16 U/L (15-37) 27 U/L (15-37) Alanine Aminotransferase (ALT/SGPT) 23 U/L (16-63) 35 U/L (16-63) Alkaline Phosphatase 64 U/L (46-116) 75 U/L (46-116) Total Protein 6.1 g/dL (6.4-8.2) 6.4 g/dL (6.4-8.2) Albumin 2.6 g/dL (3.4-5.0) 2.7 g/dL (3.4-5.0) Albumin/Globulin Ratio 0.7 (1.0-1.7) 0.7 (1.0-1.7) Laboratory Tests Test 07/21/18 04:00 White Blood Count 5.4 x10^3/uL (4.0-11.0) Red Blood Count 2.76 x10^6/uL (4.30-5.70) Hemoglobin 9.7 g/dL (13.0-17.5) Hematocrit 27.5 % (39.0-53.0) Mean Corpuscular Volume 100 fL (79-100) Mean Corpuscular Hemoglobin 35 pg (25-35) Mean Corpuscular Hemoglobin Concent 35 g/dL (31-37) Red Cell Distribution Width 21.7 % (11.5-14.5) Platelet Count 182 x10^3/uL (140-400) Neutrophils (%) (Auto) 85 % (31-73) Lymphocytes (%) (Auto) 10 % (24-48) Monocytes (%) (Auto) 6 % (0-9) Eosinophils (%) (Auto) 0 % (0-3) Basophils (%) (Auto) 0 % (0-3) Neutrophils # (Auto) 4.5 x10^3uL (1.8-7.7) Lymphocytes # (Auto) 0.5 x10^3/uL (1.0-4.8) Monocytes # (Auto) 0.3 x10^3/uL (0.0-1.1) Eosinophils # (Auto) 0.0 x10^3/uL (0.0-0.7) Basophils # (Auto) 0.0 x10^3/uL (0.0-0.2) Sodium Level 142 mmol/L (136-145) Potassium Level 3.6 mmol/L (3.5-5.1) Chloride Level 106 mmol/L (98-107) Carbon Dioxide Level 24 mmol/L (21-32) Anion Gap 12 (6-14) Blood Urea Nitrogen 13 mg/dL (8-26) Creatinine 0.7 mg/dL (0.7-1.3) Estimated GFR (Cockcroft-Gault) 116.2 BUN/Creatinine Ratio 19 (6-20) Glucose Level 171 mg/dL (70-99) Calcium Level 7.2 mg/dL (8.5-10.1) Total Bilirubin 0.6 mg/dL (0.2-1.0) Aspartate Amino Transf (AST/SGOT) 27 U/L (15-37) Alanine Aminotransferase (ALT/SGPT) 35 U/L (16-63) Alkaline Phosphatase 75 U/L (46-116) Total Protein 6.4 g/dL (6.4-8.2) Albumin 2.7 g/dL (3.4-5.0) Albumin/Globulin Ratio 0.7 (1.0-1.7) Microbiology 07/15/18 Blood Culture - Final, Complete NO GROWTH AFTER 5 DAYS 07/15/18 Anaerobic/Aerobic Culture - Preliminary, Resulted 07/15/18 Anaerobic Culture Result 1 (ANDRY), Resulted Pending 07/15/18 Aerobic Culture - Final, Resulted 07/15/18 Aerobic Culture Result 1 (ANDRY) - Final, Resulted 07/15/18 Gram Stain - Final, Resulted 07/15/18 Gram Stain Result 1 (ANDRY) - Final, Resulted 07/15/18 Gram Stain Result 2 (ANDRY) - Final, Resulted Medications Current Medications Sodium Chloride 1,000 ml @ 1,000 mls/hr 1X ONCE IV Last administered on at 14:40; Start 07/15/18 at 14:00; Stop 07/15/18 at 14:59; Status DC Cefepime HCl 1 gm/ Dextrose 50 ml @ 100 mls/hr 1X STAT IV ; Start 07/15/18 at 13:55; Stop 07/15/18 at 14:24; Status UNV Vancomycin HCl (Vanco Per Pharmacy) 1 each PRN DAILY PRN MC SEE COMMENTS Last administered on 07/19/18at 10:36; Start 07/15/18 at 14:00; Stop 07/19/18 at 11:37 ; Status DC Cefepime HCl (Maxipime) 1 gm 1X ONCE IVP Last administered on 07/15/18at 15:47 ; Start 07/15/18 at 14:15; Stop 07/15/18 at 14:18; Status DC Vancomycin HCl 2 gm/Sodium Chloride 500 ml @ 250 mls/hr 1X ONCE IV Last administered on 07/15/18at 15:50; Start 07/15/18 at 14:30; Stop 07/15/18 at 16:29 ; Status DC Acetaminophen (Tylenol) 1,000 mg 1X ONCE PO Last administered on 07/15/18at 14: 40; Start 07/15/18 at 14:15; Stop 07/15/18 at 14:18; Status DC Fentanyl Citrate (Fentanyl 2ml Vial) 50 mcg 1X ONCE IV Last administered on at 15:01; Start 07/15/18 at 15:00; Stop 07/15/18 at 15:01; Status DC Ondansetron HCl (Zofran) 4 mg 1X ONCE IV Last administered on 07/15/18at 15:00 ; Start 07/15/18 at 15:00; Stop 07/15/18 at 15:01; Status DC Ketorolac Tromethamine (Toradol 15mg Vial) 15 mg 1X ONCE IV Last administered on 07/15/18at 15:46; Start 07/15/18 at 15:30; Stop 07/15/18 at 15:36; Status DC Fentanyl Citrate (Fentanyl 2ml Vial) 50 mcg 1X ONCE IV Last administered on at 15:43; Start 07/15/18 at 15:30; Stop 07/15/18 at 15:36; Status DC Sodium Chloride 1,000 ml @ 1,000 mls/hr 1X ONCE IV Last administered on at 16:18; Start 07/15/18 at 15:30; Stop 07/15/18 at 16:29; Status DC Metoclopramide HCl (Reglan Vial) 10 mg 1X ONCE IV Last administered on at 15:44; Start 07/15/18 at 15:30; Stop 07/15/18 at 15:36; Status DC Diphenhydramine HCl (Benadryl) 25 mg 1X ONCE IVP Last administered on 15:44; Start 07/15/18 at 15:30; Stop 07/15/18 at 15:36; Status DC Lidocaine HCl 20 ml 1X ONCE IJ Last administered on 07/15/18at 17:41; Start at 16:15; Stop 07/15/18 at 16:18; Status DC Lorazepam (Ativan) 1 mg 1X ONCE IV Last administered on 07/15/18at 16:58; Start 07/15/18 at 16:15; Stop 07/15/18 at 16:18; Status DC Lidocaine HCl (Xylocaine-Mpf 2% Vial) 2 ml STK-MED ONCE .ROUTE ; Start 07/15/18 at 16:31; Stop 07/15/18 at 16:33; Status DC Cefepime HCl 2 gm/ Dextrose 100 ml @ 200 mls/hr Q8HRS IV ; Start 07/15/18 at 22 :00; Status UNV Sodium Chloride 1,000 ml @ 125 mls/hr Q8H IV Last administered on 07/21/18at 05:57; Start 07/15/18 at 16:45 Fentanyl Citrate (Fentanyl 2ml Vial) 50 mcg PRN Q2HR PRN IV PAIN Last administered on 07/16/18at 01:57; Start 07/15/18 at 17:00; Stop 07/16/18 at 16:59 ; Status DC Sodium Chloride 1,000 ml @ 125 mls/hr Q8H IV ; Start 07/15/18 at 16:55; Stop 07/16/18 at 04:17; Status DC Morphine Sulfate (Morphine Sulfate) 6 mg 1X ONCE IV Last administered on at 17:57; Start 07/15/18 at 17:45; Stop 07/15/18 at 18:05; Status DC Trimethoprim/ Sulfamethoxazole 20 ml/Dextrose 500 ml @ 333.333 mls/hr Q8HRS IV ; Start 07/15/18 at 19:00; Stop 07/15/18 at 19:46; Status DC Acyclovir Sodium 730 mg/Dextrose 264.6 ml @ 264.6 mls/ hr 1X ONCE IV Last administered on 07/15/18at 18:04; Start 07/15/18 at 18:00; Stop 07/15/18 at 18:59 ; Status DC Dextrose 20 ml @ 200 mls/hr Q8HRS IV ; Start 07/15/18 at 19:00; Stop 07/15/18 at 19:46; Status DC Cefepime HCl (Maxipime) 2 gm Q8HRS IVP Last administered on 07/20/18at 06:53; Start 07/15/18 at 22:00; Stop 07/20/18 at 09:12; Status DC Vancomycin HCl 1.75 gm/Sodium Chloride 500 ml @ 250 mls/hr Q12H IV Last administered on 07/17/18at 04:08; Start 07/16/18 at 04:00; Stop 07/17/18 at 04:10 ; Status DC Vancomycin HCl (Vancomycin Trough Level) 1 each 1X ONCE MC Last administered on 07/17/18at 03:30; Start 07/17/18 at 03:30; Stop 07/17/18 at 03:31; Status DC Ampicillin Sodium 2 gm/Sodium Chloride 100 ml @ 200 mls/hr Q4HRS IV Last administered on 07/20/18at 08:11; Start 07/15/18 at 20:00; Stop 07/20/18 at 09:12 ; Status DC Dexamethasone Sodium Phosphate (Decadron) 8 mg Q8HRS IV Last administered on at 05:51; Start 07/15/18 at 22:00 Allopurinol (Zyloprim) 300 mg DAILY PO Last administered on 07/21/18at 08:15; Start 07/16/18 at 09:00 Aspirin (Debbie Aspirin) 325 mg DAILY PO Last administered on 07/21/18at 08:16; Start 07/16/18 at 09:00 Tamsulosin HCl (Flomax) 0.4 mg QHS PO Last administered on 07/20/18at 20:14; Start 07/16/18 at 21:00 Acyclovir (Zovirax) 800 mg BID PO Last administered on 07/21/18 08:16; Start 07/16/18 at 09:00 Citalopram Hydrobromide (CeleXA) 20 mg DAILY PO Last administered on 08:15; Start 07/16/18 at 09:00 Gabapentin (Neurontin) 300 mg BID PO Last administered on 07/21/18at 08:16; Start 07/16/18 at 09:00 Pantoprazole Sodium (Protonix) 40 mg DAILYAC PO Last administered on at 08:16; Start 07/16/18 at 07:30 Labetalol HCl (Normodyne Iv Push) 20 mg PRN Q2HR PRN IVP HYPERTENSION, SEE COMMENTS; Start 07/15/18 at 22:15; Stop 07/18/18 at 08:48; Status DC Acetaminophen/ Hydrocodone Bitart (Lortab 5/325) 1 tab PRN Q4HRS PRN PO SEVERE PAIN; Start 07/16/18 at 12:15 Acetaminophen (Tylenol) 650 mg PRN Q6HRS PRN PO FEVER Last administered on 07/20at 20:20; Start 07/16/18 at 12:30 Ondansetron HCl (Zofran) 4 mg PRN Q6HRS PRN IV NAUSEA/VOMITING 1ST CHOICE; Start 07/16/18 at 12:30 Morphine Sulfate (Morphine Sulfate) 2 mg PRN Q2HR PRN IV MODERATE TO SEVERE PAIN; Start 07/16/18 at 12:30 Tramadol HCl (Ultram) 50 mg PRN Q6HRS PRN PO MILD TO MODERATE PAIN; Start 07/16 at 12:30 Docusate Sodium (Colace) 100 mg PRN DAILY PRN PO HARD STOOLS; Start 07/16/18 at 12:30 Vancomycin HCl 2 gm/Sodium Chloride 500 ml @ 250 mls/hr Q12H IV Last administered on 07/19/18at 05:08; Start 07/17/18 at 16:00; Stop 07/19/18 at 11:37 ; Status DC Vancomycin HCl (Vancomycin Trough Level) 1 each 1X ONCE MC Last administered on 07/18/18at 15:30; Start 07/18/18 at 15:30; Stop 07/18/18 at 15:31; Status DC Diphenhydramine HCl (Benadryl) 25 mg PRN QHS PRN PO INSOMNIA Last administered on 07/20/18at 22:13; Start 07/17/18 at 23:00 Trazodone HCl (Desyrel) 50 mg PRN QHS PRN PO INSOMNIA Last administered on 07/20at 22:13; Start 07/17/18 at 23:00 Losartan Potassium (Cozaar) 50 mg DAILY PO Last administered on 07/21/18at 08: 16; Start 07/18/18 at 09:00 Labetalol HCl (Normodyne Iv Push) 10 mg PRN Q3HRS PRN IVP HYPERTENSION, SEE COMMENTS Last administered on 07/21/18at 10:55; Start 07/18/18 at 08:45 Meropenem 1 gm/ Sodium Chloride 100 ml @ 200 mls/hr Q8HRS IV Last administered on 07/20/18at 15:09; Start 07/20/18 at 14:00; Stop 07/20/18 at 18:17 ; Status DC Meropenem 2 gm/ Sodium Chloride 100 ml @ 200 mls/hr Q8HRS IV Last administered on 07/21/18at 05:51; Start 07/20/18 at 22:00 Lidocaine/Sodium Bicarbonate (Buffered Lidocaine 1%) 3 ml STK-MED ONCE .ROUTE ; Start 07/21/18 at 12:54; Stop 07/21/18 at 12:55; Status DC Lidocaine/Sodium Bicarbonate (Buffered Lidocaine 1%) 3 ml 1X ONCE INJ ; Start 07/21/18 at 13:15; Stop 07/21/18 at 13:16; Status UNV Active Scripts Active Levaquin (Levofloxacin) 500 Mg Tablet 500 Mg PO DAILY06 Flomax (Tamsulosin Hcl) 0.4 Mg Cap.er.24h 0.4 Mg PO QHS Reported Revlimid (Lenalidomide) 25 Mg Capsule 25 Mg PO Gabapentin 300 Mg Capsule 300 Mg PO BID Sulfamethoxazole-Tmp Ds Tablet (Sulfamethoxazole/Trimethoprim) 1 Each Tablet 1 Tab PO BID Dexamethasone 4 Mg Tablet 40 Mg PO WEEKLY Acyclovir 800 Mg Tablet 1 Tab PO BID Aspirin 325 Mg Tablet 1 Tab PO DAILY Hyzaar 100-25 Tablet (Losartan/Hydrochlorothiazide) 1 Each Tablet 1 Each PO DAILY Hydrocodone-Apap 5-325 (Hydrocodone Bit/Acetaminophen) 1 Each Tablet 1 Tab PO PRN Q6HRS PRN Escitalopram Oxalate 10 Mg Tablet 10 Mg PO DAILY Flonase Allergy Relief (Fluticasone Propionate) 9.9 Ml Bowie.susp 2 Sprays NS DAILY Meloxicam 7.5 Mg Tablet 7.5 Mg PO DAILY Prilosec Otc (Omeprazole Magnesium) 20 Mg Tablet.dr 40 Mg PO DAILY Allopurinol 300 Mg Tablet 300 Mg PO DAILY Vitals/I & O Vital Sign - Last 24 Hours 07/20/18 07/20/18 07/20/18 07/21/18 19:00 20:05 23:00 03:00 Temp 98.1 98.1 97.5 98.1 98.1 97.5 Pulse 91 73 71 Resp 18 18 18 B/P (MAP) 161/87 (111) 153/99 (117) 170/98 (122) Pulse Ox 96 97 98 O2 Delivery Room Air Room Air Room Air Room Air 07/21/18 07/21/18 07/21/18 07/21/18 03:53 07:00 07:14 08:16 Temp 97.7 97.7 Pulse 71 74 74 Resp 18 B/P (MAP) 170/98 155/93 (113) 155/93 Pulse Ox 98 O2 Delivery Room Air Room Air 07/21/18 07/21/18 10:40 10:55 Temp 99.1 99.1 Pulse 79 79 Resp 16 B/P (MAP) 165/89 (114) 165/89 Pulse Ox 97 O2 Delivery Room Air Intake and Output 07/20/18 07/20/18 07/21/18 15:00 23:00 07:00 Intake Total 1200 ml Output Total 600 ml Balance 600 ml Nutrition Consultation Dietary Evaluation: Recommendations by RD: Increase Calorie Intake Comments: continue w/regular diet as ordered Expected Outcomes/Goals: PO intake to meet >75% est needs-met, goal ongoing Malnutrition Findings: Food and Nutrition Intake (Mod: <75% est energy req 7days Weight Status: Obese FRANCISCO KO III DO Jul 21, 2018 13:22
[2018-07-21 17:00] VITALS: BP 167/84
[2018-07-21 19:00] VITALS: BP 169/94
[2018-07-21] MEDS: ACETAMINOPHEN 325 MG TABLET. PO PRN (20:05)
[2018-07-21] MEDS: TAMSULOSIN 0.4 MG CAP.ER.24H. PO SCH (20:05)
[2018-07-21] MEDS: diphenhydrAMINE HCL 25 MG CAPSULE PO PRN (22:26)
[2018-07-21] MEDS: traZODone 50 MG TABLET. PO PRN (22:26)
[2018-07-21 23:00] VITALS: BP 146/77
[2018-07-22] MEDS: IV NORMAL SALINE 1000ML BAG 1,000 ML IV SCH ×2 (00:45→08:45)
[2018-07-22] MEDS: MEROPENEM 2 GM in IV NORMAL SALINE 100ML 100 ML IV SCH ×2 (05:42→13:50)
[2018-07-22] MEDS: DEXAMETHASONE SOD PHOS 4 MG/ML VIAL IV SCH (05:42)
[2018-07-22 06:20] LABS: CALCIUM 7.4 mg/dL (8.5-10.1); CREATININE 0.7 mg/dL (0.7-1.3); GFR 116.2; POTASSIUM 3.6 mmol/L (3.5-5.1)
[2018-07-22 07:15] VITALS: BP 166/100
--- NOTE | 2018-07-22 08:38 | PDOC ---
PROGRESS NOTES Subjective Subjective HPI - f/u of Multiple myeloma, IgA kappa type, diagnosed by bone marrow biopsy on 06/25/2018 ROS - no headaches Objective Objective Vital Signs Date Time Temp Pulse Resp B/P (MAP) Pulse Ox O2 Delivery O2 Flow Rate FiO2 07/22/18 07:15 97.8 71 18 166/100 (122) 98 Room Air 97.8 07/19/18 20:00 2.0 Intake and Output 07/22/18 07:00 Intake Total 1520 ml Output Total 0 ml Balance 1520 ml Intake Oral 1320 ml IV Total 200 ml Output Urine Total 0 ml # Voids 3 Physical Exam General: Alert, Oriented X3, No acute distress Neck: No JVD Psych/Mental Status: Mental status NL Assessment Assessment Problems Medical Problems: (1) Altered mental status Status: Acute IMPRESSION AND PLAN: 1. Multiple myeloma, IgA kappa type, diagnosed by bone marrow biopsy on 06/25/2018. He received Decadron 40 mg daily for 4 days from 06/25/2018. After confirmation of diagnosis, he was started on chemotherapy with Velcade, Decadron and Revlimid from 07/06/2018. Revlimid was not available until 07/08/2018 and he took only one dose on 07/08/2018. He was subsequently hospitalized and Revlimid was held. He received cycle #1, day #4 of Velcade on 07/09/2018. He received cycle #1 day #8 of Velcade on 07/13/2018 along with Decadron 40 mg on 07/13/2018. He resumed Revlimid on 07/13/2018 and he also received a dose on 07/14/2018. He developed fever and confusion on 07/15/2018 and hence chemotherapy was again held. He was admitted to [facility] with suspected meningitis and he is on IV antibiotics per ID. I discussed with Dr. Puneet Johnson and with Dr. Georgina Cerna. I will plan to hold further chemotherapy until the underlying infection is resolved. His myeloma is under good control as his total protein is significantly improved. He will be on abx till 07/28/18. f/u with me 08/02/18 to resume chemo. 2. Fever. Appreciate Infectious Disease consultation and management. Improved, he feels better. afebrile now. 3. Meningitis, most likely bacterial meningitis. - 07/15. CSF WBC 4068, glucose 45, T protein 318.8. G/S ,many wbcs, no organisms CSF C/S neg so far - HSV 1 &2 PCR negative; WNV IgM negative - CT head neg for abscess/sinus disease Management per Infectious Diseases. 4. Anemia. Continue to monitor. Plan transfusion if hemoglobin drops to below 7. Hb better at 9.[address] scan of the head on 07/15/2018 is negative. Nonspecific white matter changes seen bilaterally, which may be due to chronic small vessel ischemic disease. Comment Review of Relevant I have reviewed the following items cristina (where applicable) has been applied. Labs Laboratory Tests Test 07/21/18 04:00 07/22/18 05:30 White Blood Count 5.4 x10^3/uL (4.0-11.0) Red Blood Count 2.76 x10^6/uL (4.30-5.70) Hemoglobin 9.7 g/dL (13.0-17.5) Hematocrit 27.5 % (39.0-53.0) Mean Corpuscular Volume 100 fL (79-100) Mean Corpuscular Hemoglobin 35 pg (25-35) Mean Corpuscular Hemoglobin Concent 35 g/dL (31-37) Red Cell Distribution Width 21.7 % (11.5-14.5) Platelet Count 182 x10^3/uL (140-400) Neutrophils (%) (Auto) 85 % (31-73) Lymphocytes (%) (Auto) 10 % (24-48) Monocytes (%) (Auto) 6 % (0-9) Eosinophils (%) (Auto) 0 % (0-3) Basophils (%) (Auto) 0 % (0-3) Neutrophils # (Auto) 4.5 x10^3uL (1.8-7.7) Lymphocytes # (Auto) 0.5 x10^3/uL (1.0-4.8) Monocytes # (Auto) 0.3 x10^3/uL (0.0-1.1) Eosinophils # (Auto) 0.0 x10^3/uL (0.0-0.7) Basophils # (Auto) 0.0 x10^3/uL (0.0-0.2) Sodium Level 142 mmol/L (136-145) 144 mmol/L (136-145) Potassium Level 3.6 mmol/L (3.5-5.1) 3.6 mmol/L (3.5-5.1) Chloride Level 106 mmol/L (98-107) 107 mmol/L (98-107) Carbon Dioxide Level 24 mmol/L (21-32) 25 mmol/L (21-32) Anion Gap 12 (6-14) 12 (6-14) Blood Urea Nitrogen 13 mg/dL (8-26) 11 mg/dL (8-26) Creatinine 0.7 mg/dL (0.7-1.3) 0.7 mg/dL (0.7-1.3) Estimated GFR (Cockcroft-Gault) 116.2 116.2 BUN/Creatinine Ratio 19 (6-20) Glucose Level 171 mg/dL (70-99) 149 mg/dL (70-99) Calcium Level 7.2 mg/dL (8.5-10.1) 7.4 mg/dL (8.5-10.1) Total Bilirubin 0.6 mg/dL (0.2-1.0) Aspartate Amino Transf (AST/SGOT) 27 U/L (15-37) Alanine Aminotransferase (ALT/SGPT) 35 U/L (16-63) Alkaline Phosphatase 75 U/L (46-116) Total Protein 6.4 g/dL (6.4-8.2) Albumin 2.7 g/dL (3.4-5.0) Albumin/Globulin Ratio 0.7 (1.0-1.7) Laboratory Tests Test 07/22/18 05:30 Sodium Level 144 mmol/L (136-145) Potassium Level 3.6 mmol/L (3.5-5.1) Chloride Level 107 mmol/L (98-107) Carbon Dioxide Level 25 mmol/L (21-32) Anion Gap 12 (6-14) Blood Urea Nitrogen 11 mg/dL (8-26) Creatinine 0.7 mg/dL (0.7-1.3) Estimated GFR (Cockcroft-Gault) 116.2 Glucose Level 149 mg/dL (70-99) Calcium Level 7.4 mg/dL (8.5-10.1) Microbiology 07/15/18 Blood Culture - Final, Complete NO GROWTH AFTER 5 DAYS 07/15/18 Anaerobic/Aerobic Culture - Final, Complete 07/15/18 Anaerobic Culture Result 1 (ANDRY) - Final, Complete 07/15/18 Aerobic Culture - Final, Complete 07/15/18 Aerobic Culture Result 1 (ANDRY) - Final, Complete 07/15/18 Gram Stain - Final, Complete 07/15/18 Gram Stain Result 1 (ANDRY) - Final, Complete 07/15/18 Gram Stain Result 2 (ANDRY) - Final, Complete Medications Current Medications Sodium Chloride 1,000 ml @ 1,000 mls/hr 1X ONCE IV Last administered on at 14:40; Start 07/15/18 at 14:00; Stop 07/15/18 at 14:59; Status DC Cefepime HCl 1 gm/ Dextrose 50 ml @ 100 mls/hr 1X STAT IV ; Start 07/15/18 at 13:55; Stop 07/15/18 at 14:24; Status UNV Vancomycin HCl (Vanco Per Pharmacy) 1 each PRN DAILY PRN MC SEE COMMENTS Last administered on 07/19/18at 10:36; Start 07/15/18 at 14:00; Stop 07/19/18 at 11:37 ; Status DC Cefepime HCl (Maxipime) 1 gm 1X ONCE IVP Last administered on 07/15/18at 15:47 ; Start 07/15/18 at 14:15; Stop 07/15/18 at 14:18; Status DC Vancomycin HCl 2 gm/Sodium Chloride 500 ml @ 250 mls/hr 1X ONCE IV Last administered on 07/15/18at 15:50; Start 07/15/18 at 14:30; Stop 07/15/18 at 16:29 ; Status DC Acetaminophen (Tylenol) 1,000 mg 1X ONCE PO Last administered on 07/15/18at 14: 40; Start 07/15/18 at 14:15; Stop 07/15/18 at 14:18; Status DC Fentanyl Citrate (Fentanyl 2ml Vial) 50 mcg 1X ONCE IV Last administered on at 15:01; Start 07/15/18 at 15:00; Stop 07/15/18 at 15:01; Status DC Ondansetron HCl (Zofran) 4 mg 1X ONCE IV Last administered on 07/15/18at 15:00 ; Start 07/15/18 at 15:00; Stop 07/15/18 at 15:01; Status DC Ketorolac Tromethamine (Toradol 15mg Vial) 15 mg 1X ONCE IV Last administered on 07/15/18at 15:46; Start 07/15/18 at 15:30; Stop 07/15/18 at 15:36; Status DC Fentanyl Citrate (Fentanyl 2ml Vial) 50 mcg 1X ONCE IV Last administered on at 15:43; Start 07/15/18 at 15:30; Stop 07/15/18 at 15:36; Status DC Sodium Chloride 1,000 ml @ 1,000 mls/hr 1X ONCE IV Last administered on at 16:18; Start 07/15/18 at 15:30; Stop 07/15/18 at 16:29; Status DC Metoclopramide HCl (Reglan Vial) 10 mg 1X ONCE IV Last administered on at 15:44; Start 07/15/18 at 15:30; Stop 07/15/18 at 15:36; Status DC Diphenhydramine HCl (Benadryl) 25 mg 1X ONCE IVP Last administered on at 15:44; Start 07/15/18 at 15:30; Stop 07/15/18 at 15:36; Status DC Lidocaine HCl 20 ml 1X ONCE IJ Last administered on 07/15/18at 17:41; Start at 16:15; Stop 07/15/18 at 16:18; Status DC Lorazepam (Ativan) 1 mg 1X ONCE IV Last administered on 07/15/18at 16:58; Start 07/15/18 at 16:15; Stop 07/15/18 at 16:18; Status DC Lidocaine HCl (Xylocaine-Mpf 2% Vial) 2 ml STK-MED ONCE .ROUTE ; Start 07/15/18 at 16:31; Stop 07/15/18 at 16:33; Status DC Cefepime HCl 2 gm/ Dextrose 100 ml @ 200 mls/hr Q8HRS IV ; Start 07/15/18 at 22 :00; Status UNV Sodium Chloride 1,000 ml @ 125 mls/hr Q8H IV Last administered on 07/21/18at 05:57; Start 07/15/18 at 16:45 Fentanyl Citrate (Fentanyl 2ml Vial) 50 mcg PRN Q2HR PRN IV PAIN Last administered on 07/16/18at 01:57; Start 07/15/18 at 17:00; Stop 07/16/18 at 16:59 ; Status DC Sodium Chloride 1,000 ml @ 125 mls/hr Q8H IV ; Start 07/15/18 at 16:55; Stop 07/16/18 at 04:17; Status DC Morphine Sulfate (Morphine Sulfate) 6 mg 1X ONCE IV Last administered on at 17:57; Start 07/15/18 at 17:45; Stop 07/15/18 at 18:05; Status DC Trimethoprim/ Sulfamethoxazole 20 ml/Dextrose 500 ml @ 333.333 mls/hr Q8HRS IV ; Start 07/15/18 at 19:00; Stop 07/15/18 at 19:46; Status DC Acyclovir Sodium 730 mg/Dextrose 264.6 ml @ 264.6 mls/ hr 1X ONCE IV Last administered on 07/15/18at 18:04; Start 07/15/18 at 18:00; Stop 07/15/18 at 18:59 ; Status DC Dextrose 20 ml @ 200 mls/hr Q8HRS IV ; Start 07/15/18 at 19:00; Stop 07/15/18 at 19:46; Status DC Cefepime HCl (Maxipime) 2 gm Q8HRS IVP Last administered on 07/20/18at 06:53; Start 07/15/18 at 22:00; Stop 07/20/18 at 09:12; Status DC Vancomycin HCl 1.75 gm/Sodium Chloride 500 ml @ 250 mls/hr Q12H IV Last administered on 07/17/18at 04:08; Start 07/16/18 at 04:00; Stop 07/17/18 at 04:10 ; Status DC Vancomycin HCl (Vancomycin Trough Level) 1 each 1X ONCE MC Last administered on 07/17/18at 03:30; Start 07/17/18 at 03:30; Stop 07/17/18 at 03:31; Status DC Ampicillin Sodium 2 gm/Sodium Chloride 100 ml @ 200 mls/hr Q4HRS IV Last administered on 07/20/18at 08:11; Start 07/15/18 at 20:00; Stop 07/20/18 at 09:12 ; Status DC Dexamethasone Sodium Phosphate (Decadron) 8 mg Q8HRS IV Last administered on at 05:42; Start 07/15/18 at 22:00 Allopurinol (Zyloprim) 300 mg DAILY PO Last administered on 07/21/18at 08:15; Start 07/16/18 at 09:00 Aspirin (Debbie Aspirin) 325 mg DAILY PO Last administered on 07/21/18 08:16; Start 07/16/18 at 09:00 Tamsulosin HCl (Flomax) 0.4 mg QHS PO Last administered on 07/21/18 20:05; Start 07/16/18 at 21:00 Acyclovir (Zovirax) 800 mg BID PO Last administered on 07/21/18 20:05; Start 07/16/18 at 09:00 Citalopram Hydrobromide (CeleXA) 20 mg DAILY PO Last administered on 08:15; Start 07/16/18 at 09:00 Gabapentin (Neurontin) 300 mg BID PO Last administered on 07/21/18at 20:04; Start 07/16/18 at 09:00 Pantoprazole Sodium (Protonix) 40 mg DAILYAC PO Last administered on 08:16; Start 07/16/18 at 07:30 Labetalol HCl (Normodyne Iv Push) 20 mg PRN Q2HR PRN IVP HYPERTENSION, SEE COMMENTS; Start 07/15/18 at 22:15; Stop 07/18/18 at 08:48; Status DC Acetaminophen/ Hydrocodone Bitart (Lortab 5/325) 1 tab PRN Q4HRS PRN PO SEVERE PAIN; Start 07/16/18 at 12:15 Acetaminophen (Tylenol) 650 mg PRN Q6HRS PRN PO FEVER Last administered on 07/29at 20:05; Start 07/16/18 at 12:30 Ondansetron HCl (Zofran) 4 mg PRN Q6HRS PRN IV NAUSEA/VOMITING 1ST CHOICE; Start 07/16/18 at 12:30 Morphine Sulfate (Morphine Sulfate) 2 mg PRN Q2HR PRN IV MODERATE TO SEVERE PAIN; Start 07/16/18 at 12:30 Tramadol HCl (Ultram) 50 mg PRN Q6HRS PRN PO MILD TO MODERATE PAIN; Start 07/16 at 12:30 Docusate Sodium (Colace) 100 mg PRN DAILY PRN PO HARD STOOLS; Start 07/16/18 at 12:30 Vancomycin HCl 2 gm/Sodium Chloride 500 ml @ 250 mls/hr Q12H IV Last administered on 07/19/18at 05:08; Start 07/17/18 at 16:00; Stop 07/19/18 at 11:37 ; Status DC Vancomycin HCl (Vancomycin Trough Level) 1 each 1X ONCE MC Last administered on 07/18/18at 15:30; Start 07/18/18 at 15:30; Stop 07/18/18 at 15:31; Status DC Diphenhydramine HCl (Benadryl) 25 mg PRN QHS PRN PO INSOMNIA Last administered on 07/21/18at 22:26; Start 07/17/18 at 23:00 Trazodone HCl (Desyrel) 50 mg PRN QHS PRN PO INSOMNIA Last administered on 22:26; Start 07/17/18 at 23:00 Losartan Potassium (Cozaar) 50 mg DAILY PO Last administered on 07/21/18at 08: 16; Start 07/18/18 at 09:00 Labetalol HCl (Normodyne Iv Push) 10 mg PRN Q3HRS PRN IVP HYPERTENSION, SEE COMMENTS Last administered on 07/21/18at 10:55; Start 07/18/18 at 08:45 Meropenem 1 gm/ Sodium Chloride 100 ml @ 200 mls/hr Q8HRS IV Last administered on 07/20/18at 15:09; Start 07/20/18 at 14:00; Stop 07/20/18 at 18:17 ; Status DC Meropenem 2 gm/ Sodium Chloride 100 ml @ 200 mls/hr Q8HRS IV Last administered on 07/22/18at 05:42; Start 07/20/18 at 22:00 Lidocaine/Sodium Bicarbonate (Buffered Lidocaine 1%) 3 ml STK-MED ONCE .ROUTE ; Start 07/21/18 at 12:54; Stop 07/21/18 at 12:55; Status DC Lidocaine/Sodium Bicarbonate (Buffered Lidocaine 1%) 3 ml 1X ONCE INJ Last administered on 07/21/18at 13:26; Start 07/21/18 at 13:15; Stop 07/21/18 at 13 :25; Status DC Active Scripts Active Levaquin (Levofloxacin) 500 Mg Tablet 500 Mg PO DAILY06 Flomax (Tamsulosin Hcl) 0.4 Mg Cap.er.24h 0.4 Mg PO QHS Reported Revlimid (Lenalidomide) 25 Mg Capsule 25 Mg PO Gabapentin 300 Mg Capsule 300 Mg PO BID Sulfamethoxazole-Tmp Ds Tablet (Sulfamethoxazole/Trimethoprim) 1 Each Tablet 1 Tab PO BID Dexamethasone 4 Mg Tablet 40 Mg PO WEEKLY Acyclovir 800 Mg Tablet 1 Tab PO BID Aspirin 325 Mg Tablet 1 Tab PO DAILY Hyzaar 100-25 Tablet (Losartan/Hydrochlorothiazide) 1 Each Tablet 1 Each PO DAILY Hydrocodone-Apap 5-325 (Hydrocodone Bit/Acetaminophen) 1 Each Tablet 1 Tab PO PRN Q6HRS PRN Escitalopram Oxalate 10 Mg Tablet 10 Mg PO DAILY Flonase Allergy Relief (Fluticasone Propionate) 9.9 Ml [place].susp 2 Sprays NS DAILY Meloxicam 7.5 Mg Tablet 7.5 Mg PO DAILY Prilosec Otc (Omeprazole Magnesium) 20 Mg Tablet.dr 40 Mg PO DAILY Allopurinol 300 Mg Tablet 300 Mg PO DAILY Vitals/I & O Vital Sign - Last 24 Hours 07/21/18 07/21/18 07/21/18 07/21/18 10:40 10:55 17:00 19:00 Temp 99.1 97.7 99.2 99.1 97.7 99.2 Pulse 79 79 72 69 Resp 16 20 18 B/P (MAP) 165/89 (114) 165/89 167/84 (111) 169/94 (119) Pulse Ox 97 99 97 O2 Delivery Room Air Room Air Room Air 07/21/18 07/21/18 07/22/18 20:00 23:00 07:15 Temp 97.7 97.8 97.7 97.8 Pulse 74 71 Resp 18 18 B/P (MAP) 146/77 (100) 166/100 (122) Pulse Ox 98 98 O2 Delivery Room Air Room Air Room Air Intake and Output 07/21/18 07/21/18 07/22/18 15:00 23:00 07:00 Intake Total 580 ml 940 ml Output Total 0 ml Balance 580 ml 940 ml Nutrition Consultation Dietary Evaluation: Recommendations by RD: Increase Calorie Intake Comments: continue w/regular diet as ordered Expected Outcomes/Goals: PO intake to meet >75% est needs-met, goal ongoing Malnutrition Findings: Food and Nutrition Intake (Mod: <75% est energy req 7days Weight Status: Obese PHILLIP FUNEZ MD Jul 22, 2018 08:38
[2018-07-22] MEDS: CITALOPRAM 20 MG TABLET. PO SCH (09:33)
[2018-07-22] MEDS: ASPIRIN 325 MG TABLET PO SCH (09:33)
[2018-07-22] MEDS: LOSARTAN POTASSIUM 50 MG TABLET. PO SCH (09:34)
[2018-07-22] MEDS: ACYCLOVIR 200 MG CAPSULE. PO SCH (09:34)
[2018-07-22] MEDS: PANTOPRAZOLE 40 MG TABLET.DR. PO SCH (09:35)
[2018-07-22] MEDS: GABAPENTIN 300 MG CAPSULE. PO SCH (09:35)
[2018-07-22] MEDS: ALLOPURINOL 300 MG TABLET. PO SCH (09:35)
[2018-07-22 09:58] LABS: BASO % 0 % (0-3); EOS % 0 % (0-3); HEMATOCRIT 29.2 % (39.0-53.0); HEMOGLOBIN 9.9 g/dL (13.0-17.5); LYMPH # 0.5 x10^3/uL (1.0-4.8); LYMPH % 9 % (24-48); MEAN CORPUSCULAR HEMOGLOBIN 34 pg (25-35); MEAN CORPUSCULAR HGB CONC 34 g/dL (31-37); MEAN CORPUSCULAR VOLUME 101 fL (79-100); MONO # 0.3 x10^3/uL (0.0-1.1); MONO % 6 % (0-9); NEUT # 4.9 x10^3uL (1.8-7.7); NEUT % 85 % (31-73); PLATELET COUNT 198 x10^3/uL (140-400); RED BLOOD COUNT 2.89 x10^6/uL (4.30-5.70); RED CELL DISTRIBUTION WIDTH 21.8 % (11.5-14.5); WHITE BLOOD COUNT 5.7 x10^3/uL (4.0-11.0)
[2018-07-22 10:46] VITALS: BP 160/103
--- NOTE | 2018-07-22 10:51 | PDOC ---
PROGRESS NOTES Chief Complaint Chief Complaint Multiple myeloma Severe sepsis Meningitis, bacterial Acute encephalopathy Hyponatremia HTN Chronic anemia ON CHEMO Thrombocytopenia History of Present Illness History of Present Illness Pt seen and examined, pt is pleasant and reports improvement. States he is awaiting education for admitting home IV Abx. Allan RN Improved fever Continued b/l tingling in upper and lower distal extremities Vitals Vitals Vital Signs Date Time Temp Pulse Resp B/P (MAP) Pulse Ox O2 Delivery O2 Flow Rate FiO2 07/22/18 09:34 71 166/100 07/22/18 08:00 Room Air 07/22/18 07:15 97.8 18 98 97.8 Physical Exam General: Alert, Oriented X3, No acute distress Heart: Normal S1, Normal S2 Lungs: Clear Abdomen: Normal bowel sounds, Soft Extremities: No cyanosis, No edema Skin: No rashes, No significant lesion Labs LABS Laboratory Tests Test 07/22/18 05:30 White Blood Count 5.7 x10^3/uL (4.0-11.0) Red Blood Count 2.89 x10^6/uL (4.30-5.70) Hemoglobin 9.9 g/dL (13.0-17.5) Hematocrit 29.2 % (39.0-53.0) Mean Corpuscular Volume 101 fL (79-100) Mean Corpuscular Hemoglobin 34 pg (25-35) Mean Corpuscular Hemoglobin Concent 34 g/dL (31-37) Red Cell Distribution Width 21.8 % (11.5-14.5) Platelet Count 198 x10^3/uL (140-400) Neutrophils (%) (Auto) 85 % (31-73) Lymphocytes (%) (Auto) 9 % (24-48) Monocytes (%) (Auto) 6 % (0-9) Eosinophils (%) (Auto) 0 % (0-3) Basophils (%) (Auto) 0 % (0-3) Neutrophils # (Auto) 4.9 x10^3uL (1.8-7.7) Lymphocytes # (Auto) 0.5 x10^3/uL (1.0-4.8) Monocytes # (Auto) 0.3 x10^3/uL (0.0-1.1) Eosinophils # (Auto) 0.0 x10^3/uL (0.0-0.7) Basophils # (Auto) 0.0 x10^3/uL (0.0-0.2) Sodium Level 144 mmol/L (136-145) Potassium Level 3.6 mmol/L (3.5-5.1) Chloride Level 107 mmol/L (98-107) Carbon Dioxide Level 25 mmol/L (21-32) Anion Gap 12 (6-14) Blood Urea Nitrogen 11 mg/dL (8-26) Creatinine 0.7 mg/dL (0.7-1.3) Estimated GFR (Cockcroft-Gault) 116.2 Glucose Level 149 mg/dL (70-99) Calcium Level 7.4 mg/dL (8.5-10.1) Review of Systems Review of Systems CO fatigue CO hunger Assessment and Plan Assessmemt and Plan Problems Medical Problems: (1) Altered mental status Status: Acute Multiple myeloma Severe sepsis Meningitis, bacterial Acute encephalopathy Hyponatremia HTN Chronic anemia ON CHEMO Thrombocytopenia Plan: IV Abx Home Meds. Labs Trazodone 50 mg 30pill w/ one refill for sleep Discharge today after pt education on administering IV home Meds Comment Review of Relevant I have reviewed the following items cristina (where applicable) has been applied. Labs Laboratory Tests Test 07/21/18 04:00 07/22/18 05:30 White Blood Count 5.4 x10^3/uL (4.0-11.0) 5.7 x10^3/uL (4.0-11.0) Red Blood Count 2.76 x10^6/uL (4.30-5.70) 2.89 x10^6/uL (4.30-5.70) Hemoglobin 9.7 g/dL (13.0-17.5) 9.9 g/dL (13.0-17.5) Hematocrit 27.5 % (39.0-53.0) 29.2 % (39.0-53.0) Mean Corpuscular Volume 100 fL (79-100) 101 fL (79-100) Mean Corpuscular Hemoglobin 35 pg (25-35) 34 pg (25-35) Mean Corpuscular Hemoglobin Concent 35 g/dL (31-37) 34 g/dL (31-37) Red Cell Distribution Width 21.7 % (11.5-14.5) 21.8 % (11.5-14.5) Platelet Count 182 x10^3/uL (140-400) 198 x10^3/uL (140-400) Neutrophils (%) (Auto) 85 % (31-73) 85 % (31-73) Lymphocytes (%) (Auto) 10 % (24-48) 9 % (24-48) Monocytes (%) (Auto) 6 % (0-9) 6 % (0-9) Eosinophils (%) (Auto) 0 % (0-3) 0 % (0-3) Basophils (%) (Auto) 0 % (0-3) 0 % (0-3) Neutrophils # (Auto) 4.5 x10^3uL (1.8-7.7) 4.9 x10^3uL (1.8-7.7) Lymphocytes # (Auto) 0.5 x10^3/uL (1.0-4.8) 0.5 x10^3/uL (1.0-4.8) Monocytes # (Auto) 0.3 x10^3/uL (0.0-1.1) 0.3 x10^3/uL (0.0-1.1) Eosinophils # (Auto) 0.0 x10^3/uL (0.0-0.7) 0.0 x10^3/uL (0.0-0.7) Basophils # (Auto) 0.0 x10^3/uL (0.0-0.2) 0.0 x10^3/uL (0.0-0.2) Sodium Level 142 mmol/L (136-145) 144 mmol/L (136-145) Potassium Level 3.6 mmol/L (3.5-5.1) 3.6 mmol/L (3.5-5.1) Chloride Level 106 mmol/L (98-107) 107 mmol/L (98-107) Carbon Dioxide Level 24 mmol/L (21-32) 25 mmol/L (21-32) Anion Gap 12 (6-14) 12 (6-14) Blood Urea Nitrogen 13 mg/dL (8-26) 11 mg/dL (8-26) Creatinine 0.7 mg/dL (0.7-1.3) 0.7 mg/dL (0.7-1.3) Estimated GFR (Cockcroft-Gault) 116.2 116.2 BUN/Creatinine Ratio 19 (6-20) Glucose Level 171 mg/dL (70-99) 149 mg/dL (70-99) Calcium Level 7.2 mg/dL (8.5-10.1) 7.4 mg/dL (8.5-10.1) Total Bilirubin 0.6 mg/dL (0.2-1.0) Aspartate Amino Transf (AST/SGOT) 27 U/L (15-37) Alanine Aminotransferase (ALT/SGPT) 35 U/L (16-63) Alkaline Phosphatase 75 U/L (46-116) Total Protein 6.4 g/dL (6.4-8.2) Albumin 2.7 g/dL (3.4-5.0) Albumin/Globulin Ratio 0.7 (1.0-1.7) Laboratory Tests Test 07/22/18 05:30 White Blood Count 5.7 x10^3/uL (4.0-11.0) Red Blood Count 2.89 x10^6/uL (4.30-5.70) Hemoglobin 9.9 g/dL (13.0-17.5) Hematocrit 29.2 % (39.0-53.0) Mean Corpuscular Volume 101 fL (79-100) Mean Corpuscular Hemoglobin 34 pg (25-35) Mean Corpuscular Hemoglobin Concent 34 g/dL (31-37) Red Cell Distribution Width 21.8 % (11.5-14.5) Platelet Count 198 x10^3/uL (140-400) Neutrophils (%) (Auto) 85 % (31-73) Lymphocytes (%) (Auto) 9 % (24-48) Monocytes (%) (Auto) 6 % (0-9) Eosinophils (%) (Auto) 0 % (0-3) Basophils (%) (Auto) 0 % (0-3) Neutrophils # (Auto) 4.9 x10^3uL (1.8-7.7) Lymphocytes # (Auto) 0.5 x10^3/uL (1.0-4.8) Monocytes # (Auto) 0.3 x10^3/uL (0.0-1.1) Eosinophils # (Auto) 0.0 x10^3/uL (0.0-0.7) Basophils # (Auto) 0.0 x10^3/uL (0.0-0.2) Sodium Level 144 mmol/L (136-145) Potassium Level 3.6 mmol/L (3.5-5.1) Chloride Level 107 mmol/L (98-107) Carbon Dioxide Level 25 mmol/L (21-32) Anion Gap 12 (6-14) Blood Urea Nitrogen 11 mg/dL (8-26) Creatinine 0.7 mg/dL (0.7-1.3) Estimated GFR (Cockcroft-Gault) 116.2 Glucose Level 149 mg/dL (70-99) Calcium Level 7.4 mg/dL (8.5-10.1) Microbiology 07/15/18 Blood Culture - Final, Complete NO GROWTH AFTER 5 DAYS 07/15/18 Anaerobic/Aerobic Culture - Final, Complete 07/15/18 Anaerobic Culture Result 1 (ANDRY) - Final, Complete 07/15/18 Aerobic Culture - Final, Complete 07/15/18 Aerobic Culture Result 1 (ANDRY) - Final, Complete 07/15/18 Gram Stain - Final, Complete 07/15/18 Gram Stain Result 1 (ANDRY) - Final, Complete 07/15/18 Gram Stain Result 2 (ANDRY) - Final, Complete Medications Current Medications Sodium Chloride 1,000 ml @ 1,000 mls/hr 1X ONCE IV Last administered on at 14:40; Start 07/15/18 at 14:00; Stop 07/15/18 at 14:59; Status DC Cefepime HCl 1 gm/ Dextrose 50 ml @ 100 mls/hr 1X STAT IV ; Start 07/15/18 at 13:55; Stop 07/15/18 at 14:24; Status UNV Vancomycin HCl (Vanco Per Pharmacy) 1 each PRN DAILY PRN MC SEE COMMENTS Last administered on 07/19/18at 10:36; Start 07/15/18 at 14:00; Stop 07/19/18 at 11:37 ; Status DC Cefepime HCl (Maxipime) 1 gm 1X ONCE IVP Last administered on 07/15/18at 15:47 ; Start 07/15/18 at 14:15; Stop 07/15/18 at 14:18; Status DC Vancomycin HCl 2 gm/Sodium Chloride 500 ml @ 250 mls/hr 1X ONCE IV Last administered on 07/15/18at 15:50; Start 07/15/18 at 14:30; Stop 07/15/18 at 16:29 ; Status DC Acetaminophen (Tylenol) 1,000 mg 1X ONCE PO Last administered on 07/15/18at 14: 40; Start 07/15/18 at 14:15; Stop 07/15/18 at 14:18; Status DC Fentanyl Citrate (Fentanyl 2ml Vial) 50 mcg 1X ONCE IV Last administered on at 15:01; Start 07/15/18 at 15:00; Stop 07/15/18 at 15:01; Status DC Ondansetron HCl (Zofran) 4 mg 1X ONCE IV Last administered on 07/15/18at 15:00 ; Start 07/15/18 at 15:00; Stop 07/15/18 at 15:01; Status DC Ketorolac Tromethamine (Toradol 15mg Vial) 15 mg 1X ONCE IV Last administered on 07/15/18at 15:46; Start 07/15/18 at 15:30; Stop 07/15/18 at 15:36; Status DC Fentanyl Citrate (Fentanyl 2ml Vial) 50 mcg 1X ONCE IV Last administered on at 15:43; Start 07/15/18 at 15:30; Stop 07/15/18 at 15:36; Status DC Sodium Chloride 1,000 ml @ 1,000 mls/hr 1X ONCE IV Last administered on at 16:18; Start 07/15/18 at 15:30; Stop 07/15/18 at 16:29; Status DC Metoclopramide HCl (Reglan Vial) 10 mg 1X ONCE IV Last administered on at 15:44; Start 07/15/18 at 15:30; Stop 07/15/18 at 15:36; Status DC Diphenhydramine HCl (Benadryl) 25 mg 1X ONCE IVP Last administered on at 15:44; Start 07/15/18 at 15:30; Stop 07/15/18 at 15:36; Status DC Lidocaine HCl 20 ml 1X ONCE IJ Last administered on 07/15/18at 17:41; Start at 16:15; Stop 10/4/18 at 16:18; Status DC Lorazepam (Ativan) 1 mg 1X ONCE IV Last administered on 07/15/18at 16:58; Start 07/15/18 at 16:15; Stop 07/15/18 at 16:18; Status DC Lidocaine HCl (Xylocaine-Mpf 2% Vial) 2 ml STK-MED ONCE .ROUTE ; Start 07/15/18 at 16:31; Stop 07/15/18 at 16:33; Status DC Cefepime HCl 2 gm/ Dextrose 100 ml @ 200 mls/hr Q8HRS IV ; Start 07/15/18 at 22 :00; Status UNV Sodium Chloride 1,000 ml @ 125 mls/hr Q8H IV Last administered on 07/21/18at 05:57; Start 07/15/18 at 16:45 Fentanyl Citrate (Fentanyl 2ml Vial) 50 mcg PRN Q2HR PRN IV PAIN Last administered on 07/16/18at 01:57; Start 07/15/18 at 17:00; Stop 07/16/18 at 16:59 ; Status DC Sodium Chloride 1,000 ml @ 125 mls/hr Q8H IV ; Start 07/15/18 at 16:55; Stop 07/16/18 at 04:17; Status DC Morphine Sulfate (Morphine Sulfate) 6 mg 1X ONCE IV Last administered on at 17:57; Start 07/15/18 at 17:45; Stop 07/15/18 at 18:05; Status DC Trimethoprim/ Sulfamethoxazole 20 ml/Dextrose 500 ml @ 333.333 mls/hr Q8HRS IV ; Start 07/15/18 at 19:00; Stop 07/15/18 at 19:46; Status DC Acyclovir Sodium 730 mg/Dextrose 264.6 ml @ 264.6 mls/ hr 1X ONCE IV Last administered on 07/15/18at 18:04; Start 07/15/18 at 18:00; Stop 07/15/18 at 18:59 ; Status DC Dextrose 20 ml @ 200 mls/hr Q8HRS IV ; Start 07/15/18 at 19:00; Stop 07/15/18 at 19:46; Status DC Cefepime HCl (Maxipime) 2 gm Q8HRS IVP Last administered on 07/20/18at 06:53; Start 07/15/18 at 22:00; Stop 07/20/18 at 09:12; Status DC Vancomycin HCl 1.75 gm/Sodium Chloride 500 ml @ 250 mls/hr Q12H IV Last administered on 07/17/18at 04:08; Start 07/16/18 at 04:00; Stop 07/17/18 at 04:10 ; Status DC Vancomycin HCl (Vancomycin Trough Level) 1 each 1X ONCE MC Last administered on 07/17/18at 03:30; Start 07/17/18 at 03:30; Stop 07/17/18 at 03:31; Status DC Ampicillin Sodium 2 gm/Sodium Chloride 100 ml @ 200 mls/hr Q4HRS IV Last administered on 07/20/18at 08:11; Start 07/15/18 at 20:00; Stop 07/20/18 at 09:12 ; Status DC Dexamethasone Sodium Phosphate (Decadron) 8 mg Q8HRS IV Last administered on at 05:42; Start 07/15/18 at 22:00 Allopurinol (Zyloprim) 300 mg DAILY PO Last administered on 07/22/18at 09:35; Start 07/16/18 at 09:00 Aspirin (Debbie Aspirin) 325 mg DAILY PO Last administered on 07/22/18 09:33; Start 07/16/18 at 09:00 Tamsulosin HCl (Flomax) 0.4 mg QHS PO Last administered on 07/21/18at 20:05; Start 07/16/18 at 21:00 Acyclovir (Zovirax) 800 mg BID PO Last administered on 07/22/18 09:34; Start 07/16/18 at 09:00 Citalopram Hydrobromide (CeleXA) 20 mg DAILY PO Last administered on 09:33; Start 07/16/18 at 09:00 Gabapentin (Neurontin) 300 mg BID PO Last administered on 07/22/18 09:35; Start 07/16/18 at 09:00 Pantoprazole Sodium (Protonix) 40 mg DAILYAC PO Last administered on at 09:35; Start 07/16/18 at 07:30 Labetalol HCl (Normodyne Iv Push) 20 mg PRN Q2HR PRN IVP HYPERTENSION, SEE COMMENTS; Start 07/15/18 at 22:15; Stop 07/18/18 at 08:48; Status DC Acetaminophen/ Hydrocodone Bitart (Lortab 5/325) 1 tab PRN Q4HRS PRN PO SEVERE PAIN; Start 07/16/18 at 12:15 Acetaminophen (Tylenol) 650 mg PRN Q6HRS PRN PO FEVER Last administered on 07/29at 20:05; Start 07/16/18 at 12:30 Ondansetron HCl (Zofran) 4 mg PRN Q6HRS PRN IV NAUSEA/VOMITING 1ST CHOICE; Start 07/16/18 at 12:30 Morphine Sulfate (Morphine Sulfate) 2 mg PRN Q2HR PRN IV MODERATE TO SEVERE PAIN; Start 07/16/18 at 12:30 Tramadol HCl (Ultram) 50 mg PRN Q6HRS PRN PO MILD TO MODERATE PAIN; Start 07/16 at 12:30 Docusate Sodium (Colace) 100 mg PRN DAILY PRN PO HARD STOOLS; Start 07/16/18 at 12:30 Vancomycin HCl 2 gm/Sodium Chloride 500 ml @ 250 mls/hr Q12H IV Last administered on 07/19/18at 05:08; Start 07/17/18 at 16:00; Stop 07/19/18 at 11:37 ; Status DC Vancomycin HCl (Vancomycin Trough Level) 1 each 1X ONCE MC Last administered on 07/18/18at 15:30; Start 07/18/18 at 15:30; Stop 07/18/18 at 15:31; Status DC Diphenhydramine HCl (Benadryl) 25 mg PRN QHS PRN PO INSOMNIA Last administered on 07/21/18at 22:26; Start 07/17/18 at 23:00 Trazodone HCl (Desyrel) 50 mg PRN QHS PRN PO INSOMNIA Last administered on 07/29at 22:26; Start 07/17/18 at 23:00 Losartan Potassium (Cozaar) 50 mg DAILY PO Last administered on 07/22/18at 09: 34; Start 07/18/18 at 09:00 Labetalol HCl (Normodyne Iv Push) 10 mg PRN Q3HRS PRN IVP HYPERTENSION, SEE COMMENTS Last administered on 07/21/18at 10:55; Start 07/18/18 at 08:45 Meropenem 1 gm/ Sodium Chloride 100 ml @ 200 mls/hr Q8HRS IV Last administered on 07/20/18at 15:09; Start 07/20/18 at 14:00; Stop 07/20/18 at 18:17 ; Status DC Meropenem 2 gm/ Sodium Chloride 100 ml @ 200 mls/hr Q8HRS IV Last administered on 07/22/18at 05:42; Start 07/20/18 at 22:00 Lidocaine/Sodium Bicarbonate (Buffered Lidocaine 1%) 3 ml STK-MED ONCE .ROUTE ; Start 07/21/18 at 12:54; Stop 07/21/18 at 12:55; Status DC Lidocaine/Sodium Bicarbonate (Buffered Lidocaine 1%) 3 ml 1X ONCE INJ Last administered on 07/21/18at 13:26; Start 07/21/18 at 13:15; Stop 07/21/18 at 13 :25; Status DC Active Scripts Active Levaquin (Levofloxacin) 500 Mg Tablet 500 Mg PO DAILY06 Flomax (Tamsulosin Hcl) 0.4 Mg Cap.er.24h 0.4 Mg PO QHS Reported Revlimid (Lenalidomide) 25 Mg Capsule 25 Mg PO Gabapentin 300 Mg Capsule 300 Mg PO BID Sulfamethoxazole-Tmp Ds Tablet (Sulfamethoxazole/Trimethoprim) 1 Each Tablet 1 Tab PO BID Dexamethasone 4 Mg Tablet 40 Mg PO WEEKLY Acyclovir 800 Mg Tablet 1 Tab PO BID Aspirin 325 Mg Tablet 1 Tab PO DAILY Hyzaar 100-25 Tablet (Losartan/Hydrochlorothiazide) 1 Each Tablet 1 Each PO DAILY Hydrocodone-Apap 5-325 (Hydrocodone Bit/Acetaminophen) 1 Each Tablet 1 Tab PO PRN Q6HRS PRN Escitalopram Oxalate 10 Mg Tablet 10 Mg PO DAILY Flonase Allergy Relief (Fluticasone Propionate) 9.9 Ml [employer].susp 2 Sprays NS DAILY Meloxicam 7.5 Mg Tablet 7.5 Mg PO DAILY Prilosec Otc (Omeprazole Magnesium) 20 Mg Tablet.dr 40 Mg PO DAILY Allopurinol 300 Mg Tablet 300 Mg PO DAILY Vitals/I & O Vital Sign - Last 24 Hours 07/21/18 07/21/18 07/21/18 07/21/18 10:55 17:00 19:00 20:00 Temp 97.7 99.2 97.7 99.2 Pulse 79 72 69 Resp 20 18 B/P (MAP) 165/89 167/84 (111) 169/94 (119) Pulse Ox 99 97 O2 Delivery Room Air Room Air Room Air 07/21/18 07/22/18 07/22/18 07/22/18 23:00 07:15 08:00 09:34 Temp 97.7 97.8 97.7 97.8 Pulse 74 71 71 Resp 18 18 B/P (MAP) 146/77 (100) 166/100 (122) 166/100 Pulse Ox 98 98 O2 Delivery Room Air Room Air Room Air Intake and Output 07/21/18 07/21/18 07/22/18 15:00 23:00 07:00 Intake Total 580 ml 940 ml Output Total 0 ml Balance 580 ml 940 ml Nutrition Consultation Dietary Evaluation: Recommendations by RD: Increase Calorie Intake Comments: continue w/regular diet as ordered Expected Outcomes/Goals: PO intake to meet >75% est needs-met, goal ongoing Malnutrition Findings: Food and Nutrition Intake (Mod: <75% est energy req 7days Weight Status: Obese FRANCISCO KO III DO Jul 22, 2018 10:50
--- NOTE | 2018-07-22 11:18 | PDOC ---
Infectious Disease Note Subjective: Subjective pt without complaints this am ready to be dc this pm no f/c/n/v/d/abdo pain/headache/neck pain chronic vision changes sinus stuffiness continues not worsened no sinus drainage no cough or sob no gu symptoms ROS: ROS Negative except for above. Vital Signs: Vital Signs Vital Signs Date Time Temp Pulse Resp B/P (MAP) Pulse Ox O2 Delivery O2 Flow Rate FiO2 07/22/18 10:46 97.9 84 20 160/103 (122) 96 Room Air 97.9 Physical Exam: PHYSICAL EXAM GENERAL: Propped up in bed, AXOX3 in no acute distress HENT: PERRL. no icterus, Oral cavity, pharynx pink and moist. Sinuses nontender NECK: Supple LUNGS: Clear CV: S1, S2 ABDOMEN: Soft, NT EXT: No gross edema or cyanosis SKIN: warm without rash CIGARETTE EXAMINER: AXOX3, nonfocal PIV Medications: Inpatient Meds: Current Medications Medications (Trade) Dose Ordered Sig/Miguelina Start Time Stop Time Status Last Admin Dose Admin Acetaminophen (Tylenol) 650 mg PRN Q6HRS PRN 07/16/18 12:30 07/21/18 20:05 650 MG Acetaminophen/ Hydrocodone Bitart (Lortab 5/325) 1 tab PRN Q4HRS PRN 07/16/18 12:15 Acyclovir (Zovirax) 800 mg BID 07/16/18 09:00 07/22/18 09:34 800 MG Acyclovir Sodium 730 mg/Dextrose 264.6 ml @ 264.6 mls/ hr 1X ONCE 07/15/18 18:00 07/15/18 18:59 DC 07/15/18 18:04 264.6 MLS/HR Allopurinol (Zyloprim) 300 mg DAILY 07/16/18 09:00 07/22/18 09:35 300 MG Ampicillin Sodium 2 gm/Sodium Chloride 100 ml @ 200 mls/hr Q4HRS 07/15/18 20:00 07/20/18 09:12 DC 07/20/18 08:11 200 MLS/HR Aspirin (Debbie Aspirin) 325 mg DAILY 07/16/18 09:00 07/22/18 09:33 325 MG Cefepime HCl (Maxipime) 2 gm Q8HRS 07/15/18 22:00 07/20/18 09:12 DC 07/20/18 06:53 2 GM Cefepime HCl 1 gm/ Dextrose 50 ml @ 100 mls/hr 1X STAT 07/15/18 13:55 07/15/18 14:24 UNV Cefepime HCl 2 gm/ Dextrose 100 ml @ 200 mls/hr Q8HRS 07/15/18 22:00 UNV Citalopram Hydrobromide (CeleXA) 20 mg DAILY 07/16/18 09:00 07/22/18 09:33 20 MG Dexamethasone Sodium Phosphate (Decadron) 8 mg Q8HRS 07/15/18 22:00 07/22/18 05:42 8 MG Dextrose 20 ml @ 200 mls/hr Q8HRS 07/15/18 19:00 07/15/18 19:46 DC Diphenhydramine HCl (Benadryl) 25 mg PRN QHS PRN 07/17/18 23:00 07/21/18 22:26 25 MG Docusate Sodium (Colace) 100 mg PRN DAILY PRN 07/16/18 12:30 Fentanyl Citrate (Fentanyl 2ml Vial) 50 mcg PRN Q2HR PRN 07/15/18 17:00 07/16/18 16:59 DC 07/16/18 01:57 50 MCG Gabapentin (Neurontin) 300 mg BID 07/16/18 09:00 07/22/18 09:35 300 MG Ketorolac Tromethamine (Toradol 15mg Vial) 15 mg 1X ONCE 07/15/18 15:30 07/15/18 15:36 DC 07/15/18 15:46 15 MG Labetalol HCl (Normodyne Iv Push) 10 mg PRN Q3HRS PRN 07/18/18 08:45 07/21/18 10:55 10 MG Lidocaine HCl (Xylocaine-Mpf 2% Vial) 2 ml STK-MED ONCE 07/15/18 16:31 07/15/18 16:33 DC Lidocaine/Sodium Bicarbonate (Buffered Lidocaine 1%) 3 ml 1X ONCE 07/21/18 13:15 07/21/18 13:25 DC 07/21/18 13:26 3.5 ML Lorazepam (Ativan) 1 mg 1X ONCE 07/15/18 16:15 07/15/18 16:18 DC 07/15/18 16:58 1 MG Losartan Potassium (Cozaar) 50 mg DAILY 07/18/18 09:00 07/22/18 09:34 50 MG Meropenem 1 gm/ Sodium Chloride 100 ml @ 200 mls/hr Q8HRS 07/20/18 14:00 07/20/18 18:17 DC 07/20/18 15:09 200 MLS/HR Meropenem 2 gm/ Sodium Chloride 100 ml @ 200 mls/hr Q8HRS 07/20/18 22:00 07/22/18 05:42 200 MLS/HR Metoclopramide HCl (Reglan Vial) 10 mg 1X ONCE 07/15/18 15:30 07/15/18 15:36 DC 07/15/18 15:44 10 MG Morphine Sulfate (Morphine Sulfate) 2 mg PRN Q2HR PRN 07/16/18 12:30 Ondansetron HCl (Zofran) 4 mg PRN Q6HRS PRN 07/16/18 12:30 Pantoprazole Sodium (Protonix) 40 mg DAILYAC 07/16/18 07:30 07/22/18 09:35 40 MG Sodium Chloride 1,000 ml @ 125 mls/hr Q8H 07/15/18 16:55 07/16/18 04:17 DC Tamsulosin HCl (Flomax) 0.4 mg QHS 07/16/18 21:00 07/21/18 20:05 0.4 MG Tramadol HCl (Ultram) 50 mg PRN Q6HRS PRN 07/16/18 12:30 Trazodone HCl (Desyrel) 50 mg PRN QHS PRN 07/17/18 23:00 07/21/18 22:26 50 MG Trimethoprim/ Sulfamethoxazole 20 ml/Dextrose 500 ml @ 333.333 mls/hr Q8HRS 07/15/18 19:00 07/15/18 19:46 DC Vancomycin HCl (Vanco Per Pharmacy) 1 each PRN DAILY PRN 07/15/18 14:00 07/19/18 11:37 DC 07/19/18 10:36 1 EACH Vancomycin HCl (Vancomycin Trough Level) 1 each 1X ONCE 07/18/18 15:30 07/18/18 15:31 DC 07/18/18 15:30 1 EACH Vancomycin HCl 1.75 gm/Sodium Chloride 500 ml @ 250 mls/hr Q12H 07/16/18 04:00 07/17/18 04:10 DC 07/17/18 04:08 250 MLS/HR Vancomycin HCl 2 gm/Sodium Chloride 500 ml @ 250 mls/hr Q12H 07/17/18 16:00 07/19/18 11:37 DC 07/19/18 05:08 250 MLS/HR Labs: Lab Laboratory Tests Test 07/22/18 05:30 White Blood Count 5.7 x10^3/uL (4.0-11.0) Red Blood Count 2.89 x10^6/uL (4.30-5.70) Hemoglobin 9.9 g/dL (13.0-17.5) Hematocrit 29.2 % (39.0-53.0) Mean Corpuscular Volume 101 fL (79-100) Mean Corpuscular Hemoglobin 34 pg (25-35) Mean Corpuscular Hemoglobin Concent 34 g/dL (31-37) Red Cell Distribution Width 21.8 % (11.5-14.5) Platelet Count 198 x10^3/uL (140-400) Neutrophils (%) (Auto) 85 % (31-73) Lymphocytes (%) (Auto) 9 % (24-48) Monocytes (%) (Auto) 6 % (0-9) Eosinophils (%) (Auto) 0 % (0-3) Basophils (%) (Auto) 0 % (0-3) Neutrophils # (Auto) 4.9 x10^3uL (1.8-7.7) Lymphocytes # (Auto) 0.5 x10^3/uL (1.0-4.8) Monocytes # (Auto) 0.3 x10^3/uL (0.0-1.1) Eosinophils # (Auto) 0.0 x10^3/uL (0.0-0.7) Basophils # (Auto) 0.0 x10^3/uL (0.0-0.2) Sodium Level 144 mmol/L (136-145) Potassium Level 3.6 mmol/L (3.5-5.1) Chloride Level 107 mmol/L (98-107) Carbon Dioxide Level 25 mmol/L (21-32) Anion Gap 12 (6-14) Blood Urea Nitrogen 11 mg/dL (8-26) Creatinine 0.7 mg/dL (0.7-1.3) Estimated GFR (Cockcroft-Gault) 116.2 Glucose Level 149 mg/dL (70-99) Calcium Level 7.4 mg/dL (8.5-10.1) Micro Micro RUN DATE: 07/18/18 PAGE 1 RUN TIME: 3083 [facility] [address] [place] [address] Rojas Baker M.D., [employer] Machine [employer] PATIENT: JOHN FORTE ACCT: [id number] LOC: [address] [place] [address] U : [id number] AGE/SX: 58/M ROOM: [facility] REG : 07/15/[address]: ANAYELI FLOWERS MD : 1960 BED: 1 DIS : STATUS: ADM IN TLOC: SPEC #: [id number] CONCHA: 07/15/18 STATUS: RES REQ #: [id number] RECD: 07/15/[address]: JULIANNA PETERSON MD SOURCE: CSF ENTR: 07/15/[address]: SUSAN BOX APRN [facility]: ORDERED: ANAER/LYSSA/MONICA Procedure Result ANAEROBIC-AEROBIC CULTURE PENDING ANAEROBIC RES 1 PENDING AEROBIC CULT Preliminary Preliminary report AEROBIC RES 1 Preliminary Comment No growth in 36 - 48 hours. GRAM STAIN Final Final report GRAM STAIN RES 1 Final Comment Few white blood cells. GRAM STAIN RES 2 Final No organisms seen Performed at: DA - [facility] [address], [place], [place] [id number] Practice Clinician: PATO Pearl MD, Phone: [phone] Objective: Assessment: Headache, fever in an immunosuppressed patient - improved Cerebrospinal fluid pleocytosis consistent with meningitis, most likely bacterial meningitis. - 07/15. CSF WBC 4068, glucose 45, T protein 318.8. G/S ,many wbcs, no organisms CSF C/S neg so far - HSV 1 &2 PCR negative; WNV IgM negative CT head neg for abscess/sinus disease Multiple myeloma, on chemotherapy. Fever, improved Encephalopathy, which has improved. PCN & amoxicillin causing stomach upset , Hypertension. Hyperlipidemia. Gastroesophageal reflux disease. thrombocytopenia,mild Plan: Plan of Care Pt is ready for discharge later today cont empiric merrem for 7 more days PICC line s/e of antibiotics and line complications discussed labs next thursday on 07/26 cbc/bun/creat,fax results to [phone] probiotics f/u with us in 2 weeks D/W J LUIS LOCKETT MD Jul 22, 2018 11:17
--- NOTE | 2018-07-22 11:29 | RAD ---
Exam: Fluoroscopic and ultrasound guided right percutaneous inserted central venous catheter placement 07/22/2018 11:25 AM .Indication: needs midline for snf antibiotics Technique: Informed oral and written consent were obtained. The right upper extremity was prepped and draped using sterile barrier technique. All elements of maximal sterile barrier technique including the use of a cap, mask, sterile gown, sterile gloves, large sterile sheet, appropriate hand hygiene, and 2% chlorhexidine for cutaneous antisepsis (or acceptable alternative antiseptic per current guidelines) were followed for this procedure.. Real-time ultrasound demonstrated a patent right basilic vein which was prepped and draped in usual sterile fashion. 1% lidocaine used for local anesthesia. Using real-time ultrasound guidance the access needle percutaneously punctured the selected right basilic vein. Reference ultrasound images were saved to the medical record. A guidewire was advanced through the needle to the cavoatrial junction, and a peel-away sheath placed. The catheter was cut to length and inserted through the peel-away sheath such that its tip is at the cavoatrial junction. The wire and sheath were removed, and the catheter secured in place, and a sterile dressing was applied. Catheter was found to flush and aspirate normally. No immediate complications are identified. FLUORO TIME: 0.3 minutes DOSE AREA PRODUCT: 2 Gycm2 Impression: Ultrasound and fluoroscopically guided placement of a right upper extremity PICC line.
[2018-07-22 14:55] VITALS: BP 157/95
== END 2018-07-22 15:19 | disposition home health service (06) | DRG 871 ==
LOC: ER 13:27 → 5 NORTH 16:10 → 1 WEST ICU 18:18 → 6 SOUTH 07-16 13:52 → 5 SOUTH 07-21 16:47
PROVIDERS: ADMIT Internal Medicine; ATTEND Internal Medicine
PROC: 02HV33Z Insertion of Infusion Device into Superior Vena Cava, Percutaneous Approach (ICD-10-PCS; principal; 2018-07-22)
PROC: B5181ZA Fluoroscopy of Superior Vena Cava using Low Osmolar Contrast, Guidance (ICD-10-PCS; 2018-07-22)
PROC: B548ZZA Ultrasonography of Superior Vena Cava, Guidance (ICD-10-PCS; 2018-07-22)
DX: A41.9 Sepsis, unspecified organism (principal); G00.9 Bacterial meningitis, unspecified; G93.41 Metabolic encephalopathy; C90.00 Multiple myeloma not having achieved remission; E87.1 Hypo-osmolality and hyponatremia; D64.81 Anemia due to antineoplastic chemotherapy; D69.6 Thrombocytopenia, unspecified; E78.00 Pure hypercholesterolemia, unspecified; E78.5 Hyperlipidemia, unspecified; F32.9 Major depressive disorder, single episode, unspecified; G47.00 Insomnia, unspecified; I10 Essential (primary) hypertension; K21.9 Gastro-esophageal reflux disease without esophagitis; R65.20 Severe sepsis without septic shock; F41.9 Anxiety disorder, unspecified; K57.90 Diverticulosis of intestine, part unspecified, without perforation or abscess without bleeding; T45.1X5A Adverse effect of antineoplastic and immunosuppressive drugs, initial encounter; M10.9 Gout, unspecified; Z82.49 Family history of ischemic heart disease and other diseases of the circulatory system; Z86.61 Personal history of infections of the central nervous system; Z87.891 Personal history of nicotine dependence; Z83.3 Family history of diabetes mellitus; Z88.0 Allergy status to penicillin; Z88.8 Allergy status to other drugs, medicaments and biological substances; Z90.49 Acquired absence of other specified parts of digestive tract; Z79.899 Other long term (current) drug therapy; Y92.89 Other specified places as the place of occurrence of the external cause
CPT/HCPCS: 36415; 36569; 51702; 62270; 70450; 71045; 76937; 77001; 80048; 80053; 80202; 81001; 82565; 82945; 83605; 83690; 84145; 84157; 84484; 85007; 85025; 85610; 86788; 86789; 87040; 87071; 87075; 87529; 87641; 87804; 89051; 93005; 96361; 96365; 96367; 96375; 96376; C1751; C1892; J0133; J0290; J0692; J1100; J1200; J1885; J2001; J2060; J2185; J2270; J2405; J2765; J3010; J3370; J3490; J7030; J7040; Q0163; 99291-25

== ENCOUNTER 2018-07-25 07:14 | Inpatient (IN) | payer OTHER ==
[~2018-07-25] VITALS: Ht 177.8 cm; Wt 101.6 kg
[2018-07-25] MEDS ORDERED: ONDANSETRON PF 4 MG/2 ML VIAL. IV ONE (07:45)
[2018-07-25] MEDS ORDERED: HYDROmorphone 2 MG/ML VIAL IV ONE ×2 (07:45→10:15)
[2018-07-25] MEDS ORDERED: IV NORMAL SALINE 1000ML BAG 1,000 ML IV ONE (07:45)
[2018-07-25 07:54] LABS: BASO % 0 % (0-3); EOS % 1 % (0-3); HEMATOCRIT 30.7 % (39.0-53.0); LYMPH # 0.8 x10^3/uL (1.0-4.8); LYMPH % 10 % (24-48); MEAN CORPUSCULAR HEMOGLOBIN 35 pg (25-35); MEAN CORPUSCULAR HGB CONC 36 g/dL (31-37); MEAN CORPUSCULAR VOLUME 99 fL (79-100); MONO # 0.6 x10^3/uL (0.0-1.1); MONO % 8 % (0-9); NEUT # 6.5 x10^3uL (1.8-7.7); NEUT % 81 % (31-73); PLATELET COUNT 241 x10^3/uL (140-400); RED BLOOD COUNT 3.12 x10^6/uL (4.30-5.70); RED CELL DISTRIBUTION WIDTH 20.6 % (11.5-14.5); WHITE BLOOD COUNT 8.1 x10^3/uL (4.0-11.0)
--- NOTE | 2018-07-25 08:00 | RAD ---
Indication:BACK PAIN. Recent DIAGNOSIS OF MENINGITIS TECHNIQUE:Portable AP chest X-ray COMPARISON: 07/15/2018 FINDINGS: Interval placement of right-sided PICC line with its tip in the right atrium. Heart is top normal in size. Diffuse prominent interstitial opacities seen without focal consolidation. No pneumothorax or pleural effusion. Visualized bony thorax within normal limits. IMPRESSION: Interval placement of right-sided PICC line with its tip in the right atrium. No acute pulmonary process. Electronically signed by: Amado Naranjo DO (07/25/2018 7:57 AM) [facility]
--- NOTE | 2018-07-25 08:03 | PHYS DOC ---
Past Medical History Past Medical History: Anxiety, High Cholesterol, Hypertension, Other Additional Past Medical Histor: Gout, multiple myeloma Past Surgical History: Tonsillectomy Alcohol Use: Occasionally Drug Use: None Adult General Chief Complaint Chief Complaint: HEADACHE HPI HPI Patient is a 58-year-old male who presents with complaint of severe headache, neck pain, back pain and generalized body aches. Patient had been admitted on July 15 to this facility with meningitis and has been at home since on IV antibiotics. Patient states that he has had nausea and vomiting and states that he is not able to keep anything down. He states that he is not able to lift his head because it hurts too much in his neck. He states the worst of his pain is his head and neck and he rates that at an 8 out of 10. The rest of his pain he rates at a 5 out of 10. He states that pain is worsened with movement. Nausea and vomiting is worsened if he tries to eat or drink anything. He states that nothing is improving his symptoms. Review of Systems Review of Systems Constitutional: Denies fever but has chills [] Respiratory: Denies cough or shortness of breath [] Cardiovascular: Denies chest pain[] GI: Complains of nausea and vomiting. Denies abdominal pain[] Musculoskeletal: Complains of neck and back pain as well as body aches and joint aches[] Integument: Denies rash or skin lesions [] Neurologic: Complains of headache[] All other systems were reviewed and found to be within normal limits, except as documented in this note. Current Medications Current Medications Current Medications Medications (Trade) Dose Ordered Sig/Miguelina Start Time Stop Time Status Last Admin Dose Admin Hydromorphone HCl (Dilaudid) 0.5 mg 1X ONCE 07/25/18 10:15 07/25/18 10:16 Ondansetron HCl (Zofran) 4 mg 1X ONCE 07/25/18 07:45 07/25/18 07:46 DC 07/25/18 07:52 4 MG Sodium Chloride 1,000 ml @ 1,000 mls/hr 1X ONCE 07/25/18 07:45 07/25/18 08:44 DC 07/25/18 07:59 1,000 MLS/HR Allergies Allergies Allergies Coded Allergies Type Severity Reaction Last Updated Verified amoxicillin Allergy Intermediate 07/17/18 Yes Penicillins Adverse Reaction Intermediate Nausea and Vomiting 07/06/18 Yes Physical Exam Physical Exam Constitutional: Well developed, well nourished, no acute distress, non-toxic appearance. [] HENT: Normocephalic, atraumatic, bilateral external ears normal, oropharynx moist, no oral exudates, nose normal. [] Eyes: PERRLA, EOMI, conjunctiva normal, no discharge. [] Neck: Normal range of motion, no tenderness, supple, no stridor. [] Cardiovascular:Heart rate regular rhythm, no murmur [] Lungs & Thorax: Bilateral breath sounds clear to auscultation [] Abdomen: Bowel sounds normal, soft, no tenderness, no masses, no pulsatile masses. [] Skin: Warm, dry, no erythema, no rash. [] Back: No tenderness, no CVA tenderness. [] Extremities: No tenderness, no cyanosis, no clubbing, ROM intact, no edema. [] Neurologic: Alert and oriented X 3, normal motor function, normal sensory function, no focal deficits noted. [] Psychologic: Affect normal, judgement normal, mood normal. [] Current Patient Data Vital Signs Vital Signs Date Time Temp Pulse Resp B/P (MAP) Pulse Ox O2 Delivery O2 Flow Rate FiO2 07/25/18 08:26 76 16 99 07/25/18 07:55 Room Air 07/25/18 07:14 97.9 160/86 (110) 97.9 Lab Values Laboratory Tests Test 07/25/18 07:39 07/25/18 09:00 White Blood Count 8.1 x10^3/uL (4.0-11.0) Red Blood Count 3.12 x10^6/uL (4.30-5.70) L Hemoglobin 11.0 g/dL (13.0-17.5) L Hematocrit 30.7 % (39.0-53.0) L Mean Corpuscular Volume 99 fL (79-100) Mean Corpuscular Hemoglobin 35 pg (25-35) Mean Corpuscular Hemoglobin Concent 36 g/dL (31-37) Red Cell Distribution Width 20.6 % (11.5-14.5) H Platelet Count 241 x10^3/uL (140-400) Neutrophils (%) (Auto) 81 % (31-73) H Lymphocytes (%) (Auto) 10 % (24-48) L Monocytes (%) (Auto) 8 % (0-9) Eosinophils (%) (Auto) 1 % (0-3) Basophils (%) (Auto) 0 % (0-3) Neutrophils # (Auto) 6.5 x10^3uL (1.8-7.7) Lymphocytes # (Auto) 0.8 x10^3/uL (1.0-4.8) L Monocytes # (Auto) 0.6 x10^3/uL (0.0-1.1) Eosinophils # (Auto) 0.0 x10^3/uL (0.0-0.7) Basophils # (Auto) 0.0 x10^3/uL (0.0-0.2) Platelet Estimate Adequate (ADEQUATE) Anisocytosis Present Sodium Level 127 mmol/L (136-145) L Potassium Level 3.1 mmol/L (3.5-5.1) L Chloride Level 91 mmol/L (98-107) L Carbon Dioxide Level 28 mmol/L (21-32) Anion Gap 8 (6-14) Blood Urea Nitrogen 7 mg/dL (8-26) L Creatinine 0.6 mg/dL (0.7-1.3) L Estimated GFR (Cockcroft-Gault) 138.9 BUN/Creatinine Ratio 12 (6-20) Glucose Level 128 mg/dL (70-99) H Lactic Acid Level 0.9 mmol/L (0.4-2.0) Calcium Level 8.1 mg/dL (8.5-10.1) L Total Bilirubin 1.2 mg/dL (0.2-1.0) H Aspartate Amino Transferase (AST) 23 U/L (15-37) Alanine Aminotransferase (ALT) 25 U/L (16-63) Alkaline Phosphatase 89 U/L (46-116) Total Protein 6.8 g/dL (6.4-8.2) Albumin 3.1 g/dL (3.4-5.0) L Albumin/Globulin Ratio 0.8 (1.0-1.7) L Urine Collection Type Void Urine Color Yellow Urine Clarity Clear Urine pH 8.0 Urine Specific [place] 1.010 Urine Protein Negative mg/dL (NEG-TRACE) Urine Glucose (UA) Negative mg/dL (NEG) Urine Ketones (Stick) Negative mg/dL (NEG) Urine Blood Negative (NEG) Urine Nitrite Negative (NEG) Urine Bilirubin Negative (NEG) Urine Urobilinogen Dipstick 0.2 mg/dL (0.2 mg/dL) Urine Leukocyte Esterase Negative (NEG) Urine RBC 0 /HPF (0-2) Urine WBC 0 /HPF (0-4) Urine Bacteria 0 /HPF (0-FEW) Laboratory Tests 07/25/18 07:39 Laboratory Tests 07/25/18 07:39 EKG EKG [] Radiology/Procedures Radiology/Procedures [] Course & Med Decision Making Course & Med Decision Making Pertinent Labs and Imaging studies reviewed. (See chart for details) [] Dragon Disclaimer Dragon Disclaimer This electronic medical record was generated, in whole or in part, using a voice recognition dictation system. Departure Departure Impression: Primary Impression: Meningitis Additional Impressions: Vomiting Hyponatremia Disposition: ADMITTED INPATIENT Admitting Physician: Connie Pham Condition: IMPROVED Referrals: SUSAN BOX APRN (PCP) Problem Qualifiers Additional Impressions: Vomiting Vomiting type: unspecified Vomiting Intractability: unspecified Nausea presence: with nausea Qualified Codes: R11.2 - Nausea with vomiting, unspecified MISSAEL CHUA Jr. DO Jul 25, 2018 08:03
[2018-07-25 08:06] LABS: CALCIUM 8.1 mg/dL (8.5-10.1); CREATININE 0.6 mg/dL (0.7-1.3); GFR 138.9; POTASSIUM 3.1 mmol/L (3.5-5.1)
[2018-07-25 08:12] LABS: ALBUMIN 3.1 g/dL (3.4-5.0); ALBUMIN/GLOBULIN RATIO 0.8 (1.0-1.7); TOTAL BILIRUBIN 1.2 mg/dL (0.2-1.0); TOTAL PROTEIN 6.8 g/dL (6.4-8.2)
[2018-07-25 09:11] LABS: BILIRUBIN,URINE NEGATIVE (NEG); CLARITY,URINE CLEAR; COLOR,URINE YELLOW; NITRITE,URINE NEGATIVE (NEG); PROTEIN,URINE NEGATIVE (NEG-TRACE); UROBILINOGEN,URINE 0.2 mg/dL (0.2 mg/dL)
[2018-07-25 09:19] LABS: ANISOCYTOSIS PRESENT; PLT ESTIMATE ADEQUATE (ADEQUATE)
[2018-07-25 09:27] LABS: BACTERIA,URINE 0 /HPF (0-FEW); RBC,URINE 0 /HPF (0-2); WBC,URINE 0 /HPF (0-4)
[2018-07-25] MEDS: IV NORMAL SALINE 1000ML BAG 1,000 ML IV SCH ×4 (10:08→23:27)
[2018-07-25] MEDS ORDERED: ONDANSETRON PF 4 MG/2 ML VIAL. IV PRN (10:15)
--- NOTE | 2018-07-25 11:43 | PDOC1 ---
History and Physical Date of Admission Date of Admission DATE: 07/25/18 TIME: 11:39 Identification/Chief Complaint Chief Complaint Nausea vomiting, fevers, back pain 24 hours Source Source: Caregiver, Chart review, Patient History of Present Illness History of Present Illness 58-year-old male who was just discharged here 3 days ago after the following diagnosis: Headache, fever in an immunosuppressed patient - improved Cerebrospinal fluid pleocytosis consistent with meningitis, most likely bacterial meningitis. - 07/15. CSF WBC 4068, glucose 45, T protein 318.8. G/S ,many wbcs, no organisms CSF C/S neg so far - HSV 1 &2 PCR negative; WNV IgM negative CT head neg for abscess/sinus disease Multiple myeloma, on chemotherapy. Fever, improved Encephalopathy, which has improved. PCN & amoxicillin causing stomach upset , Hypertension. Hyperlipidemia. Gastroesophageal reflux disease. thrombocytopenia,mild Patient of ID. [facility] was arranged for IV meropenem 3 times a day for 7 more days. But in the last 24 hours nausea vomiting back pain, headache. No fevers documented at home or at the ER. Less emesis today. He completed back pain low back but he thinks it's because of his urinary retention. Was started on Flomax in the last admission. I'm seeing at the emergency room. He is trying to avoid it it's taking a long time. Labs look good with a normal white count 8.1, hemoglobin 11. No fever. Potassium mildly low 3.1, sodium mildly low 127 which she had the last admission and was corrected appropriately upon discharge ER felt the need to admit the patient, to correct electrolyte imbalance and possibly need more than home health? But eyeballing the patient, I do not think he will has thickened PT needs just home health for the IV antibiotic Patient/family would rather have him admitted, he still feeling unwell to go home Past Medical History Cardiovascular: HTN, Hyperlipidemia Pulmonary: No pertinent hx GI: Diverticulosis, GERD, Gastritis Heme/Onc: No pertinent hx Hepatobiliary: No pertinent hx Psych: Anxiety Rheumatologic: No pertinent hx Infectious disease: No pertinent hx Renal/: No pertinent hx Endocrine: No pertinent hx Past Surgical History Past Surgical History: Tonsillectomy Family History Family History: No Significant Social History Smoke: No ALCOHOL: none Drugs: None Current Problem List Problem List Problems Medical Problems: (1) Hyponatremia Status: Acute (2) Meningitis Status: Acute (3) Vomiting Status: Acute Current Medications Current Medications Current Medications Sodium Chloride 1,000 ml @ 1,000 mls/hr 1X ONCE IV Last administered on 07/25at 07:59; Start 07/25/18 at 07:45; Stop 07/25/18 at 08:44; Status DC Hydromorphone HCl (Dilaudid) 1 mg 1X ONCE IV Last administered on 07/25/18at 07:55; Start 07/25/18 at 07:45; Stop 07/25/18 at 07:46; Status DC Ondansetron HCl (Zofran) 4 mg 1X ONCE IV Last administered on 07/25/18at 07:52 ; Start 07/25/18 at 07:45; Stop 07/25/18 at 07:46; Status DC Hydromorphone HCl (Dilaudid) 0.5 mg 1X ONCE IV Last administered on at 10:17; Start 07/25/18 at 10:15; Stop 07/25/18 at 10:16; Status DC Ondansetron HCl (Zofran) 4 mg PRN Q8HRS PRN IV NAUSEA/VOMITING; Start at 10:15; Stop 07/25/18 at 11:37; Status DC Morphine Sulfate (Morphine Sulfate) 4 mg PRN Q2HR PRN IV PAIN; Start 07/25/18 at 10:15; Stop 07/26/18 at 10:14 Sodium Chloride 1,000 ml @ 125 mls/hr Q8H IV ; Start 07/25/18 at 10:08; Stop 07/26/18 at 10:07 Ondansetron HCl (Zofran) 4 mg PRN Q6HRS PRN IV NAUSEA/VOMITING; Start at 11:45; Status UNV Acetaminophen (Tylenol) 500 mg PRN Q6HRS PRN PO MILD PAIN / TEMP; Start at 11:45; Status UNV Acetaminophen/ Codeine Phosphate (Tylenol #3) 1 tab PRN Q6HRS PRN PO PAIN; Start 07/25/18 at 11:45; Status UNV Ibuprofen (Motrin) 400 mg PRN Q6HRS PRN PO INFLAMMATION; Start 07/25/18 at 11: 45; Status UNV Potassium Chloride (Klor-Con) 40 meq 1X ONCE PO ; Start 07/25/18 at 11:45; Stop 07/25/18 at 11:46; Status UNV Sodium Chloride 1,000 ml @ 100 mls/hr Q10H IV ; Start 07/25/18 at 11:45; Status UNV Diphenhydramine HCl (Benadryl) 25 mg PRN QHS PRN PO INSOMNIA; Start 07/25/18 at 11:45; Status UNV Lidocaine (Lidoderm) 1 patch DAILY PRN TD back pain; Start 07/25/18 at 11:45; Status UNV Active Scripts Active Levaquin (Levofloxacin) 500 Mg Tablet 500 Mg PO DAILY06 Flomax (Tamsulosin Hcl) 0.4 Mg Cap.er.24h 0.4 Mg PO QHS Reported Revlimid (Lenalidomide) 25 Mg Capsule 25 Mg PO Gabapentin 300 Mg Capsule 300 Mg PO BID Sulfamethoxazole-Tmp Ds Tablet (Sulfamethoxazole/Trimethoprim) 1 Each Tablet 1 Tab PO BID Dexamethasone 4 Mg Tablet 40 Mg PO WEEKLY Acyclovir 800 Mg Tablet 1 Tab PO BID Aspirin 325 Mg Tablet 1 Tab PO DAILY Hyzaar 100-25 Tablet (Losartan/Hydrochlorothiazide) 1 Each Tablet 1 Each PO DAILY Hydrocodone-Apap 5-325 (Hydrocodone Bit/Acetaminophen) 1 Each Tablet 1 Tab PO PRN Q6HRS PRN Escitalopram Oxalate 10 Mg Tablet 10 Mg PO DAILY Flonase Allergy Relief (Fluticasone Propionate) 9.9 Ml [place].susp 2 Sprays NS DAILY Meloxicam 7.5 Mg Tablet 7.5 Mg PO DAILY Prilosec Otc (Omeprazole Magnesium) 20 Mg Tablet.dr 40 Mg PO DAILY Allopurinol 300 Mg Tablet 300 Mg PO DAILY Allergies Allergies: Coded Allergies: amoxicillin (Verified Allergy, Intermediate, 07/17/18) TOLERATES AMPICILLIN IV Penicillins (Verified Adverse Reaction, Intermediate, Nausea and Vomiting , 07/06/18) ROS Review of System As per history of present illness, the rest of ROS 14 point negative Physical Exam General: Alert, Oriented X3, Cooperative, No acute distress HEENT: Atraumatic, PERRLA, EOMI Lungs: Clear to auscultation, Normal air movement Heart: S1S2, RRR, no thrills, no rubs, no gallops, no murmurs Cardiovascular: S1, S2 Abdomen: Normal bowel sounds Male Genitals Exam: normal genitalia, normal prostate PELVIC: Nml ext genitalia Extremities: No clubbing, No cyanosis, No edema, Normal pulses, No tenderness/ swelling Skin: No rashes, No breakdown, No significant lesion Neuro: Normal gait, Normal speech, Strength at 5/5 X4 ext, Normal tone, Sensation intact, Cranial nerves 3-12 NL, Reflexes 2+ Psych/Mental Status: Mental status NL, Mood NL Vitals Vitals Vital Signs Date Time Temp Pulse Resp B/P (MAP) Pulse Ox O2 Delivery O2 Flow Rate FiO2 07/25/18 10:41 80 19 95 07/25/18 10:25 98.0 98.0 07/25/18 10:17 Nasal Cannula 2.0 07/25/18 07:14 160/86 (110) Labs Labs Laboratory Tests Test 07/25/18 07:39 07/25/18 09:00 White Blood Count 8.1 x10^3/uL (4.0-11.0) Red Blood Count 3.12 x10^6/uL (4.30-5.70) Hemoglobin 11.0 g/dL (13.0-17.5) Hematocrit 30.7 % (39.0-53.0) Mean Corpuscular Volume 99 fL (79-100) Mean Corpuscular Hemoglobin 35 pg (25-35) Mean Corpuscular Hemoglobin Concent 36 g/dL (31-37) Red Cell Distribution Width 20.6 % (11.5-14.5) Platelet Count 241 x10^3/uL (140-400) Neutrophils (%) (Auto) 81 % (31-73) Lymphocytes (%) (Auto) 10 % (24-48) Monocytes (%) (Auto) 8 % (0-9) Eosinophils (%) (Auto) 1 % (0-3) Basophils (%) (Auto) 0 % (0-3) Neutrophils # (Auto) 6.5 x10^3uL (1.8-7.7) Lymphocytes # (Auto) 0.8 x10^3/uL (1.0-4.8) Monocytes # (Auto) 0.6 x10^3/uL (0.0-1.1) Eosinophils # (Auto) 0.0 x10^3/uL (0.0-0.7) Basophils # (Auto) 0.0 x10^3/uL (0.0-0.2) Platelet Estimate Adequate (ADEQUATE) Anisocytosis Present Sodium Level 127 mmol/L (136-145) Potassium Level 3.1 mmol/L (3.5-5.1) Chloride Level 91 mmol/L (98-107) Carbon Dioxide Level 28 mmol/L (21-32) Anion Gap 8 (6-14) Blood Urea Nitrogen 7 mg/dL (8-26) Creatinine 0.6 mg/dL (0.7-1.3) Estimated GFR (Cockcroft-Gault) 138.9 BUN/Creatinine Ratio 12 (6-20) Glucose Level 128 mg/dL (70-99) Lactic Acid Level 0.9 mmol/L (0.4-2.0) Calcium Level 8.1 mg/dL (8.5-10.1) Total Bilirubin 1.2 mg/dL (0.2-1.0) Aspartate Amino Transf (AST/SGOT) 23 U/L (15-37) Alanine Aminotransferase (ALT/SGPT) 25 U/L (16-63) Alkaline Phosphatase 89 U/L (46-116) Total Protein 6.8 g/dL (6.4-8.2) Albumin 3.1 g/dL (3.4-5.0) Albumin/Globulin Ratio 0.8 (1.0-1.7) Urine Collection Type Void Urine Color Yellow Urine Clarity Clear Urine pH 8.0 Urine Specific [place] 1.010 Urine Protein Negative mg/dL (NEG-TRACE) Urine Glucose (UA) Negative mg/dL (NEG) Urine Ketones (Stick) Negative mg/dL (NEG) Urine Blood Negative (NEG) Urine Nitrite Negative (NEG) Urine Bilirubin Negative (NEG) Urine Urobilinogen Dipstick 0.2 mg/dL (0.2 mg/dL) Urine Leukocyte Esterase Negative (NEG) Urine RBC 0 /HPF (0-2) Urine WBC 0 /HPF (0-4) Urine Bacteria 0 /HPF (0-FEW) Laboratory Tests Test 07/25/18 07:39 07/25/18 09:00 White Blood Count 8.1 x10^3/uL (4.0-11.0) Red Blood Count 3.12 x10^6/uL (4.30-5.70) Hemoglobin 11.0 g/dL (13.0-17.5) Hematocrit 30.7 % (39.0-53.0) Mean Corpuscular Volume 99 fL (79-100) Mean Corpuscular Hemoglobin 35 pg (25-35) Mean Corpuscular Hemoglobin Concent 36 g/dL (31-37) Red Cell Distribution Width 20.6 % (11.5-14.5) Platelet Count 241 x10^3/uL (140-400) Neutrophils (%) (Auto) 81 % (31-73) Lymphocytes (%) (Auto) 10 % (24-48) Monocytes (%) (Auto) 8 % (0-9) Eosinophils (%) (Auto) 1 % (0-3) Basophils (%) (Auto) 0 % (0-3) Neutrophils # (Auto) 6.5 x10^3uL (1.8-7.7) Lymphocytes # (Auto) 0.8 x10^3/uL (1.0-4.8) Monocytes # (Auto) 0.6 x10^3/uL (0.0-1.1) Eosinophils # (Auto) 0.0 x10^3/uL (0.0-0.7) Basophils # (Auto) 0.0 x10^3/uL (0.0-0.2) Platelet Estimate Adequate (ADEQUATE) Anisocytosis Present Sodium Level 127 mmol/L (136-145) Potassium Level 3.1 mmol/L (3.5-5.1) Chloride Level 91 mmol/L (98-107) Carbon Dioxide Level 28 mmol/L (21-32) Anion Gap 8 (6-14) Blood Urea Nitrogen 7 mg/dL (8-26) Creatinine 0.6 mg/dL (0.7-1.3) Estimated GFR (Cockcroft-Gault) 138.9 BUN/Creatinine Ratio 12 (6-20) Glucose Level 128 mg/dL (70-99) Lactic Acid Level 0.9 mmol/L (0.4-2.0) Calcium Level 8.1 mg/dL (8.5-10.1) Total Bilirubin 1.2 mg/dL (0.2-1.0) Aspartate Amino Transf (AST/SGOT) 23 U/L (15-37) Alanine Aminotransferase (ALT/SGPT) 25 U/L (16-63) Alkaline Phosphatase 89 U/L (46-116) Total Protein 6.8 g/dL (6.4-8.2) Albumin 3.1 g/dL (3.4-5.0) Albumin/Globulin Ratio 0.8 (1.0-1.7) Urine Collection Type Void Urine Color Yellow Urine Clarity Clear Urine pH 8.0 Urine Specific [place] 1.010 Urine Protein Negative mg/dL (NEG-TRACE) Urine Glucose (UA) Negative mg/dL (NEG) Urine Ketones (Stick) Negative mg/dL (NEG) Urine Blood Negative (NEG) Urine Nitrite Negative (NEG) Urine Bilirubin Negative (NEG) Urine Urobilinogen Dipstick 0.2 mg/dL (0.2 mg/dL) Urine Leukocyte Esterase Negative (NEG) Urine RBC 0 /HPF (0-2) Urine WBC 0 /HPF (0-4) Urine Bacteria 0 /HPF (0-FEW) VTE Prophylaxis Ordered VTE Prophylaxis Devices: Yes VTE Pharmacological Prophylaxi: Yes Assessment/Plan Assessment/Plan Headache, fever in an immunosuppressed patient - improved Cerebrospinal fluid pleocytosis consistent with meningitis, most likely bacterial meningitis. - 07/15. CSF WBC 4068, glucose 45, T protein 318.8. G/S ,many wbcs, no organisms CSF C/S neg so far - HSV 1 &2 PCR negative; WNV IgM negative CT head neg for abscess/sinus disease Multiple myeloma, on chemotherapy. Fever, improved Encephalopathy, which has improved. PCN & amoxicillin causing stomach upset , Hypertension. Hyperlipidemia. Gastroesophageal reflux disease. thrombocytopenia,mild Hyponatremia, sodium 127 Hypokalemia-potassium 3.1 Plan: Normal saline for the hyponatremia Check TSH KCl 40 by mouth times one recheck labs tomorrow ID courtesy consult Continue IV meropenem every 8 as instructed-was supposed to receive for 7 more days Indwelling right PICC Home meds have reconciled-I am unsure if he supposed to still be taking acyclovir, thalidomide etc.- We Do not carry the latter anyways JOSE ALBERTO OLMOS MD Jul 25, 2018 11:43
[2018-07-25] MEDS ORDERED: LIDOCAINE (700MG/PATCH) PATCH. TD PRN (11:45)
[2018-07-25] MEDS ORDERED: IBUPROFEN 400 MG TABLET. PO PRN (11:45)
[2018-07-25] MEDS ORDERED: POTASSIUM CHLORIDE 20 MEQ TABLET.ER. PO ONE (11:45)
[2018-07-25] MEDS ORDERED: ACETAMINOPHEN 500 MG TABLET PO PRN (11:45)
[2018-07-25] MEDS ORDERED: ACETAMINOPHEN/CODEINE 300/30MG TABLET. PO PRN (11:45)
[2018-07-25] MEDS: MEROPENEM 1 GM in IV NORMAL SALINE 100ML 100 ML IV SCH ×2 (14:00→22:24)
--- NOTE | 2018-07-25 14:48 | PDOC ---
Infectious Disease Note Subjective Subjective Patient know to our service from previous admissions Referred to our consult from 07/16 and last progress from 07/22. Re-admitted with c/o severe headache, neck and back pain. Except for some lower back pain, feeling better now. VALENZUELA and neck pain gone Off chemo past 2 weeks or so Denies confusion, FC/N/V/rash Denies issues with PICC line Vital Sign Vital Signs Vital Signs Date Time Temp Pulse Resp B/P (MAP) Pulse Ox O2 Delivery O2 Flow Rate FiO2 07/25/18 10:41 80 19 95 07/25/18 10:25 98.0 98.0 07/25/18 10:17 Nasal Cannula 2.0 07/25/18 07:14 160/86 (110) Physical Exam PHYSICAL EXAM GENERAL: Alert, relaxed appearance HENT: PER, Oral cavity pharynx pink and moist NECK: Supple, no rigidity LUNGS: Clear CV: S1 and S1 ABD: Obese, soft NT EXT: No gross edema or cyanosis SKIN; warm without rash RUE-PICC (07/22) clean Labs Lab Laboratory Tests Test 07/25/18 07:39 07/25/18 09:00 White Blood Count 8.1 x10^3/uL (4.0-11.0) Red Blood Count 3.12 x10^6/uL (4.30-5.70) Hemoglobin 11.0 g/dL (13.0-17.5) Hematocrit 30.7 % (39.0-53.0) Mean Corpuscular Volume 99 fL (79-100) Mean Corpuscular Hemoglobin 35 pg (25-35) Mean Corpuscular Hemoglobin Concent 36 g/dL (31-37) Red Cell Distribution Width 20.6 % (11.5-14.5) Platelet Count 241 x10^3/uL (140-400) Neutrophils (%) (Auto) 81 % (31-73) Lymphocytes (%) (Auto) 10 % (24-48) Monocytes (%) (Auto) 8 % (0-9) Eosinophils (%) (Auto) 1 % (0-3) Basophils (%) (Auto) 0 % (0-3) Neutrophils # (Auto) 6.5 x10^3uL (1.8-7.7) Lymphocytes # (Auto) 0.8 x10^3/uL (1.0-4.8) Monocytes # (Auto) 0.6 x10^3/uL (0.0-1.1) Eosinophils # (Auto) 0.0 x10^3/uL (0.0-0.7) Basophils # (Auto) 0.0 x10^3/uL (0.0-0.2) Platelet Estimate Adequate (ADEQUATE) Anisocytosis Present Sodium Level 127 mmol/L (136-145) Potassium Level 3.1 mmol/L (3.5-5.1) Chloride Level 91 mmol/L (98-107) Carbon Dioxide Level 28 mmol/L (21-32) Anion Gap 8 (6-14) Blood Urea Nitrogen 7 mg/dL (8-26) Creatinine 0.6 mg/dL (0.7-1.3) Estimated GFR (Cockcroft-Gault) 138.9 BUN/Creatinine Ratio 12 (6-20) Glucose Level 128 mg/dL (70-99) Lactic Acid Level 0.9 mmol/L (0.4-2.0) Calcium Level 8.1 mg/dL (8.5-10.1) Total Bilirubin 1.2 mg/dL (0.2-1.0) Aspartate Amino Transf (AST/SGOT) 23 U/L (15-37) Alanine Aminotransferase (ALT/SGPT) 25 U/L (16-63) Alkaline Phosphatase 89 U/L (46-116) Total Protein 6.8 g/dL (6.4-8.2) Albumin 3.1 g/dL (3.4-5.0) Albumin/Globulin Ratio 0.8 (1.0-1.7) Thyroid Stimulating Hormone (TSH) 2.633 uIU/mL (0.358-3.74) Urine Collection Type Void Urine Color Yellow Urine Clarity Clear Urine pH 8.0 Urine Specific [place] 1.010 Urine Protein Negative mg/dL (NEG-TRACE) Urine Glucose (UA) Negative mg/dL (NEG) Urine Ketones (Stick) Negative mg/dL (NEG) Urine Blood Negative (NEG) Urine Nitrite Negative (NEG) Urine Bilirubin Negative (NEG) Urine Urobilinogen Dipstick 0.2 mg/dL (0.2 mg/dL) Urine Leukocyte Esterase Negative (NEG) Urine RBC 0 /HPF (0-2) Urine WBC 0 /HPF (0-4) Urine Bacteria 0 /HPF (0-FEW) IMPRESSION: Interval placement of right-sided PICC line with its tip in the right atrium. No acute pulmonary process. Objective Assessment Recurrent headache in an immunosuppressed patient - improved h/o cerebrospinal fluid pleocytosis consistent with meningitis, most likely bacterial meningitis. - 07/15. CSF WBC 4068, glucose 45, T protein 318.8. cultures neg - HSV 1 &2 PCR negative; WNV IgM negative - 07/15. CT head neg for abscess/sinus disease Multiple myeloma. Last chemo about 2 weeks ago (Revlimid and Velcade) PCN & amoxicillin causing stomach upset Hyponatremia Plan Plan of Care Clinically improving, continue Merrem f/u BC Monitor labs/temp Supportive care No need for isolation Thank you Attending Co-Sign The patient was seen and interviewed as well as examined at the bedside. The chart was reviewed. The case was discussed. Agree with the plan of care. may consider repeat LP tomorrow LEE ANN FELTON APRN Jul 25, 2018 14:48 GENEVA LONGORIA MD Jul 25, 2018 14:53
[2018-07-25] MEDS: ONDANSETRON PF 4 MG/2 ML VIAL. IV PRN (18:22)
[2018-07-25] MEDS: HYDROcodone/APAP 5/325MG 1 TAB TABLET PO PRN (18:22)
[2018-07-25] MEDS: MORPHINE SULFATE 4 MG/ML VIAL. IV PRN ×2 (18:23→22:24)
[2018-07-25 19:00] VITALS: BP 127/61
[2018-07-25] MEDS: TAMSULOSIN 0.4 MG CAP.ER.24H. PO SCH (20:34)
[2018-07-25] MEDS: GABAPENTIN 300 MG CAPSULE. PO SCH (20:35)
[2018-07-25] MEDS: traZODone 100 MG TABLET. PO PRN (22:24)
[2018-07-25] MEDS: diphenhydrAMINE HCL 25 MG CAPSULE PO PRN (22:24)
[2018-07-25 22:58] VITALS: BP 157/95
[2018-07-26] MEDS: IV NORMAL SALINE 1000ML BAG 1,000 ML IV SCH ×3 (02:08→20:25)
[2018-07-26] MEDS: MORPHINE SULFATE 4 MG/ML VIAL. IV PRN ×3 (02:09→07:29)
[2018-07-26 03:00] VITALS: BP 137/66
[2018-07-26] MEDS: HYDROcodone/APAP 5/325MG 1 TAB TABLET PO PRN (03:08)
[2018-07-26 04:44] LABS: CALCIUM 8.3 mg/dL (8.5-10.1); CREATININE 0.7 mg/dL (0.7-1.3); GFR 116.2; POTASSIUM 3.7 mmol/L (3.5-5.1)
[2018-07-26] MEDS: MEROPENEM 1 GM in IV NORMAL SALINE 100ML 100 ML IV SCH ×3 (05:55→21:21)
[2018-07-26 07:00] VITALS: BP 176/100
[2018-07-26] MEDS: PANTOPRAZOLE 40 MG TABLET.DR. PO SCH (07:29)
[2018-07-26] MEDS: FLUTICASONE 50MCG/NASAL SPRAY 16GM BOTTLE. NS SCH (09:00)
[2018-07-26] MEDS ORDERED: MORPHINE SULFATE 4 MG/ML VIAL. IV PRN (09:15)
[2018-07-26] MEDS: ALLOPURINOL 300 MG TABLET. PO SCH (09:35)
[2018-07-26] MEDS: CITALOPRAM 20 MG TABLET. PO SCH (09:35)
[2018-07-26] MEDS: GABAPENTIN 300 MG CAPSULE. PO SCH ×2 (09:35→20:24)
[2018-07-26] MEDS: ASPIRIN 325 MG TABLET PO SCH (09:35)
[2018-07-26] MEDS: LOSARTAN POTASSIUM 50 MG TABLET. PO SCH (09:36)
[2018-07-26] MEDS: MELOXICAM 7.5 MG TABLET PO SCH (09:36)
[2018-07-26 11:00] VITALS: BP 133/68
--- NOTE | 2018-07-26 12:03 | PDOC ---
Infectious Disease Note Subjective Subjective Patient know to our service from previous admissions Referred to our consult from 07/16 and last progress from 07/22. Re-admitted with c/o severe headache, neck and back pain. Has worse back and leg pain today Whitten in place but no bowel incontinence Off chemo past 2 weeks or so Denies confusion, FC/N/V/rash Denies issues with PICC line ROS ROS o/w neg Vital Sign Vital Signs Vital Signs Date Time Temp Pulse Resp B/P (MAP) Pulse Ox O2 Delivery O2 Flow Rate FiO2 07/26/18 09:36 91 176/100 07/26/18 09:35 95 Room Air 2.0 07/26/18 07:00 97.9 22 97.9 Physical Exam PHYSICAL EXAM GENERAL: Alert, relaxed appearance HENT: PER, Oral cavity pharynx pink and moist NECK: Supple, no rigidity LUNGS: Clear CV: S1 and S1 ABD: Obese, soft NT : whitten EXT: No gross edema or cyanosis Moves ext SKIN; warm without rash RUE-PICC (07/22) clean Labs Lab Laboratory Tests Test 07/26/18 04:05 Sodium Level 139 mmol/L (136-145) Potassium Level 3.7 mmol/L (3.5-5.1) Chloride Level 103 mmol/L (98-107) Carbon Dioxide Level 31 mmol/L (21-32) Anion Gap 5 (6-14) Blood Urea Nitrogen 7 mg/dL (8-26) Creatinine 0.7 mg/dL (0.7-1.3) Estimated GFR (Cockcroft-Gault) 116.2 Glucose Level 120 mg/dL (70-99) Calcium Level 8.3 mg/dL (8.5-10.1) Micro Microbiology 07/25/18 Blood Culture - Preliminary, Resulted NO GROWTH AFTER 1 DAY Objective Assessment Worsening back pain without bowel incontinence (whitten in place for retention) - chronic neuropathy ? worsening Recurrent headache in an immunosuppressed patient - improved h/o cerebrospinal fluid pleocytosis consistent with meningitis, most likely bacterial meningitis. - 07/15. CSF WBC 4068, glucose 45, T protein 318.8. cultures neg - HSV 1 &2 PCR negative; WNV IgM negative - 07/15. CT head neg for abscess/sinus disease Multiple myeloma. Last chemo about 2 weeks ago (Revlimid and Velcade) PCN & amoxicillin causing stomach upset Hyponatremia Plan Plan of Care Back pain worsening - repeat MRI (last 07/12) now post LP 07/15 continue Merrem f/u BC Monitor labs/temp Supportive care No need for isolation Thank you EFRA RESENDIZ MD Jul 26, 2018 12:03
[2018-07-26] MEDS: oxyCODONE IR 5 MG TABLET PO PRN ×2 (12:31→18:49)
--- NOTE | 2018-07-26 13:31 | PDOC ---
PROGRESS NOTES Chief Complaint Chief Complaint Headache, fever in an immunosuppressed w. recent meningitis sepsis Multiple myeloma, on chemotherapy. Encephalopathy, acute on admit PCN & amoxicillin causing stomach upset , Hypertension. Hyperlipidemia. Gastroesophageal reflux disease. thrombocytopenia,mild Hyponatremia Hypokalemia- History of Present Illness History of Present Illness Normal saline for the hyponatremia back pain better with larger doses of IV morphine ID follwoing IV meropenem right PICC Vitals Vitals Vital Signs Date Time Temp Pulse Resp B/P (MAP) Pulse Ox O2 Delivery O2 Flow Rate FiO2 07/26/18 12:31 95 Room Air 2.0 07/26/18 11:00 99.0 76 18 133/68 (89) 99.0 Physical Exam Physical Exam GENERAL: Alert, relaxed appearance HENT: PER, Oral cavity pharynx pink and moist NECK: Supple, no rigidity LUNGS: Clear CV: S1 and S1 ABD: Obese, soft NT : whitten EXT: No gross edema or cyanosis Moves ext SKIN; warm without rash RUE-PICC (07/22) clean General: Alert, Oriented X3, Cooperative, No acute distress Lungs: Clear Abdomen: Normal bowel sounds Extremities: No clubbing, No cyanosis, No edema, Normal pulses, No tenderness/ swelling Skin: No rashes, No breakdown, No significant lesion Labs LABS Laboratory Tests Test 07/26/18 04:05 Sodium Level 139 mmol/L (136-145) Potassium Level 3.7 mmol/L (3.5-5.1) Chloride Level 103 mmol/L (98-107) Carbon Dioxide Level 31 mmol/L (21-32) Anion Gap 5 (6-14) Blood Urea Nitrogen 7 mg/dL (8-26) Creatinine 0.7 mg/dL (0.7-1.3) Estimated GFR (Cockcroft-Gault) 116.2 Glucose Level 120 mg/dL (70-99) Calcium Level 8.3 mg/dL (8.5-10.1) Assessment and Plan Assessmemt and Plan Problems Medical Problems: (1) Hyponatremia Status: Acute (2) Meningitis Status: Acute (3) Vomiting Status: Acute Comment Review of Relevant I have reviewed the following items cristina (where applicable) has been applied. Labs Laboratory Tests Test 07/25/18 07:39 07/25/18 09:00 07/26/18 04:05 White Blood Count 8.1 x10^3/uL (4.0-11.0) Red Blood Count 3.12 x10^6/uL (4.30-5.70) Hemoglobin 11.0 g/dL (13.0-17.5) Hematocrit 30.7 % (39.0-53.0) Mean Corpuscular Volume 99 fL (79-100) Mean Corpuscular Hemoglobin 35 pg (25-35) Mean Corpuscular Hemoglobin Concent 36 g/dL (31-37) Red Cell Distribution Width 20.6 % (11.5-14.5) Platelet Count 241 x10^3/uL (140-400) Neutrophils (%) (Auto) 81 % (31-73) Lymphocytes (%) (Auto) 10 % (24-48) Monocytes (%) (Auto) 8 % (0-9) Eosinophils (%) (Auto) 1 % (0-3) Basophils (%) (Auto) 0 % (0-3) Neutrophils # (Auto) 6.5 x10^3uL (1.8-7.7) Lymphocytes # (Auto) 0.8 x10^3/uL (1.0-4.8) Monocytes # (Auto) 0.6 x10^3/uL (0.0-1.1) Eosinophils # (Auto) 0.0 x10^3/uL (0.0-0.7) Basophils # (Auto) 0.0 x10^3/uL (0.0-0.2) Platelet Estimate Adequate (ADEQUATE) Anisocytosis Present Sodium Level 127 mmol/L (136-145) 139 mmol/L (136-145) Potassium Level 3.1 mmol/L (3.5-5.1) 3.7 mmol/L (3.5-5.1) Chloride Level 91 mmol/L (98-107) 103 mmol/L (98-107) Carbon Dioxide Level 28 mmol/L (21-32) 31 mmol/L (21-32) Anion Gap 8 (6-14) 5 (6-14) Blood Urea Nitrogen 7 mg/dL (8-26) 7 mg/dL (8-26) Creatinine 0.6 mg/dL (0.7-1.3) 0.7 mg/dL (0.7-1.3) Estimated GFR (Cockcroft-Gault) 138.9 116.2 BUN/Creatinine Ratio 12 (6-20) Glucose Level 128 mg/dL (70-99) 120 mg/dL (70-99) Lactic Acid Level 0.9 mmol/L (0.4-2.0) Calcium Level 8.1 mg/dL (8.5-10.1) 8.3 mg/dL (8.5-10.1) Total Bilirubin 1.2 mg/dL (0.2-1.0) Aspartate Amino Transf (AST/SGOT) 23 U/L (15-37) Alanine Aminotransferase (ALT/SGPT) 25 U/L (16-63) Alkaline Phosphatase 89 U/L (46-116) Total Protein 6.8 g/dL (6.4-8.2) Albumin 3.1 g/dL (3.4-5.0) Albumin/Globulin Ratio 0.8 (1.0-1.7) Thyroid Stimulating Hormone (TSH) 2.633 uIU/mL (0.358-3.74) Urine Collection Type Void Urine Color Yellow Urine Clarity Clear Urine pH 8.0 Urine Specific [place] 1.010 Urine Protein Negative mg/dL (NEG-TRACE) Urine Glucose (UA) Negative mg/dL (NEG) Urine Ketones (Stick) Negative mg/dL (NEG) Urine Blood Negative (NEG) Urine Nitrite Negative (NEG) Urine Bilirubin Negative (NEG) Urine Urobilinogen Dipstick 0.2 mg/dL (0.2 mg/dL) Urine Leukocyte Esterase Negative (NEG) Urine RBC 0 /HPF (0-2) Urine WBC 0 /HPF (0-4) Urine Bacteria 0 /HPF (0-FEW) Laboratory Tests Test 07/26/18 04:05 Sodium Level 139 mmol/L (136-145) Potassium Level 3.7 mmol/L (3.5-5.1) Chloride Level 103 mmol/L (98-107) Carbon Dioxide Level 31 mmol/L (21-32) Anion Gap 5 (6-14) Blood Urea Nitrogen 7 mg/dL (8-26) Creatinine 0.7 mg/dL (0.7-1.3) Estimated GFR (Cockcroft-Gault) 116.2 Glucose Level 120 mg/dL (70-99) Calcium Level 8.3 mg/dL (8.5-10.1) Microbiology 07/25/18 Blood Culture - Preliminary, Resulted NO GROWTH AFTER 1 DAY Medications Current Medications Sodium Chloride 1,000 ml @ 1,000 mls/hr 1X ONCE IV Last administered on 07/25at 07:59; Start 07/25/18 at 07:45; Stop 07/25/18 at 08:44; Status DC Hydromorphone HCl (Dilaudid) 1 mg 1X ONCE IV Last administered on 07/25/18at 07:55; Start 07/25/18 at 07:45; Stop 07/25/18 at 07:46; Status DC Ondansetron HCl (Zofran) 4 mg 1X ONCE IV Last administered on 07/25/18at 07:52 ; Start 07/25/18 at 07:45; Stop 07/25/18 at 07:46; Status DC Hydromorphone HCl (Dilaudid) 0.5 mg 1X ONCE IV Last administered on at 10:17; Start 07/25/18 at 10:15; Stop 07/25/18 at 10:16; Status DC Ondansetron HCl (Zofran) 4 mg PRN Q8HRS PRN IV NAUSEA/VOMITING; Start at 10:15; Stop 07/25/18 at 11:37; Status DC Morphine Sulfate (Morphine Sulfate) 4 mg PRN Q2HR PRN IV PAIN Last administered on 07/26/18at 07:29; Start 07/25/18 at 10:15; Stop 07/26/18 at 09 :02; Status DC Sodium Chloride 1,000 ml @ 125 mls/hr Q8H IV Last administered on 07/25/18at 10:08; Start 07/25/18 at 10:08; Stop 07/26/18 at 10:07; Status DC Ondansetron HCl (Zofran) 4 mg PRN Q6HRS PRN IV NAUSEA/VOMITING Last administered on 07/25/18at 18:22; Start 07/25/18 at 11:45 Acetaminophen (Tylenol) 500 mg PRN Q6HRS PRN PO MILD PAIN / TEMP; Start at 11:45 Acetaminophen/ Codeine Phosphate (Tylenol #3) 1 tab PRN Q6HRS PRN PO MODERATE PAIN; Start 07/25/18 at 11:45 Ibuprofen (Motrin) 400 mg PRN Q6HRS PRN PO INFLAMMATION; Start 07/25/18 at 11: 45 Potassium Chloride (Klor-Con) 40 meq 1X ONCE PO Last administered on 11:45; Start 07/25/18 at 11:45; Stop 07/25/18 at 11:46; Status DC Sodium Chloride 1,000 ml @ 100 mls/hr Q10H IV Last administered on 07/26/18at 12:32; Start 07/25/18 at 11:45 Diphenhydramine HCl (Benadryl) 25 mg PRN QHS PRN PO INSOMNIA Last administered on 07/25/18 22:24; Start 07/25/18 at 11:45 Lidocaine (Lidoderm) 1 patch DAILY PRN TD back pain Last administered on 18:21; Start 07/25/18 at 11:45 Allopurinol (Zyloprim) 300 mg DAILY PO Last administered on 07/26/18 09:35; Start 07/26/18 at 09:00 Aspirin (Debbie Aspirin) 325 mg DAILY PO Last administered on 07/26/18 09:35; Start 07/26/18 at 09:00 Dexamethasone (Decadron) 40 mg WEEKLY PO ; Start 08/01/18 at 09:00; Status UNV Acetaminophen/ Hydrocodone Bitart (Lortab 5/325) 1 tab PRN Q6HRS PRN PO SEVERE PAIN Last administered on 07/26/18 03:08; Start 07/25/18 at 11:45 Tamsulosin HCl (Flomax) 0.4 mg QHS PO Last administered on 07/25/18at 20:34; Start 07/25/18 at 21:00 Citalopram Hydrobromide (CeleXA) 20 mg DAILY PO Last administered on 09:35; Start 07/26/18 at 09:00 Fluticasone Propionate (Flonase) 2 spray DAILY NS ; Start 07/26/18 at 09:00 Gabapentin (Neurontin) 300 mg BID PO Last administered on 07/26/18 09:35; Start 07/25/18 at 21:00 Losartan Potassium (Cozaar) 100 mg DAILY PO Last administered on 07/26/18 09: 36; Start 07/26/18 at 09:00 Meloxicam (Mobic) 7.5 mg DAILY PO Last administered on 07/26/18 09:36; Start 07/26/18 at 09:00 Pantoprazole Sodium (Protonix) 40 mg DAILYAC PO Last administered on 07:29; Start 07/26/18 at 07:30 Meropenem 1 gm/ Sodium Chloride 100 ml @ 200 mls/hr Q8HRS IV Last administered on 07/26/18 05:55; Start 07/25/18 at 14:00 Trazodone HCl (Desyrel) 100 mg PRN QHS PRN PO INSOMNIA 1ST CHOICE Last administered on 07/25/18 22:24; Start 07/25/18 at 21:15 Morphine Sulfate (Morphine Sulfate) 10 mg PRN Q2HR PRN IV PAIN SEVERE Last administered on 07/26/18 09:35; Start 07/26/18 at 09:15 Oxycodone HCl (Roxicodone) 10 mg PRN Q6HRS PRN PO PAIN SEVERE Last administered on 07/26/18 12:31; Start 07/26/18 at 09:15 Active Scripts Active Levaquin (Levofloxacin) 500 Mg Tablet 500 Mg PO DAILY06 Flomax (Tamsulosin Hcl) 0.4 Mg Cap.er.24h 0.4 Mg PO QHS Reported Revlimid (Lenalidomide) 25 Mg Capsule 25 Mg PO Gabapentin 300 Mg Capsule 300 Mg PO BID Sulfamethoxazole-Tmp Ds Tablet (Sulfamethoxazole/Trimethoprim) 1 Each Tablet 1 Tab PO BID Dexamethasone 4 Mg Tablet 40 Mg PO WEEKLY Acyclovir 800 Mg Tablet 1 Tab PO BID Aspirin 325 Mg Tablet 1 Tab PO DAILY Hyzaar 100-25 Tablet (Losartan/Hydrochlorothiazide) 1 Each Tablet 1 Each PO DAILY Hydrocodone-Apap 5-325 (Hydrocodone Bit/Acetaminophen) 1 Each Tablet 1 Tab PO PRN Q6HRS PRN Escitalopram Oxalate 10 Mg Tablet 10 Mg PO DAILY Flonase Allergy Relief (Fluticasone Propionate) 9.9 Ml [place].susp 2 Sprays NS DAILY Meloxicam 7.5 Mg Tablet 7.5 Mg PO DAILY Prilosec Otc (Omeprazole Magnesium) 20 Mg Tablet.dr 40 Mg PO DAILY Allopurinol 300 Mg Tablet 300 Mg PO DAILY Vitals/I & O Vital Sign - Last 24 Hours 07/25/18 07/25/18 07/25/18 07/25/18 18:22 18:23 19:00 20:46 Temp 97.7 97.7 Pulse 80 Resp 16 16 18 B/P (MAP) 127/61 (83) Pulse Ox 95 O2 Delivery Room Air Room Air Room Air Room Air 07/25/18 07/25/18 07/26/18 07/26/18 22:24 22:58 02:09 03:00 Temp 98.1 97.9 98.1 97.9 Pulse 85 88 Resp 20 18 20 18 B/P (MAP) 157/95 (115) 137/66 (89) Pulse Ox 97 95 O2 Delivery Room Air Room Air Room Air Room Air 07/26/18 07/26/18 07/26/18 07/26/18 03:08 04:04 04:10 04:40 Resp 20 20 20 20 O2 Delivery Room Air Room Air Room Air Room Air 07/26/18 07/26/18 07/26/18 07/26/18 07:00 07:29 08:00 09:35 Temp 97.9 97.9 Pulse 91 Resp 22 B/P (MAP) 176/100 (125) Pulse Ox 99 95 95 O2 Delivery Room Air Room Air Room Air Room Air O2 Flow Rate 2.0 2.0 2.0 07/26/18 07/26/18 07/26/18 07/26/18 09:36 10:05 11:00 12:31 Temp 99.0 99.0 Pulse 91 76 Resp 18 B/P (MAP) 176/100 133/68 (89) Pulse Ox 95 96 95 O2 Delivery Room Air Room Air Room Air O2 Flow Rate 2.0 2.0 Intake and Output 07/25/18 07/25/18 07/26/18 15:00 23:00 07:00 Intake Total 1000 ml 100 ml 1490 ml Output Total 1475 ml Balance 1000 ml 100 ml 15 ml ANAYELI FLOWERS MD Jul 26, 2018 13:31
[2018-07-26] MEDS ORDERED: GADOBUTROL 10 MMOL/10 ML VIAL IV ONE (14:30)
[2018-07-26 15:00] VITALS: BP 132/78
--- NOTE | 2018-07-26 15:40 | RAD ---
MRI Lumbar Spine without and with contrast History: Low back pain, multiple myeloma Technique: Multiplanar, multi sequential pre and postcontrast MR imaging was performed of the lumbar spine. Contrast: 10 cc Gadavist Comparison: 07/12/2018 Findings: There is again transitional anatomy of the lumbar spine, most inferior formed intervertebral disc space considered L5-S1. There is again more advanced degenerative disc disease at what is considered L3-4 and L4-5. There is again narrowing of the L5-S1 intervertebral disc space on a developmental basis. Lumbar vertebral body stature is overall unchanged. There is again negligible anterior spondylolisthesis at L3-L4 and minimal posterior subluxation L4 relative L5. There are multiple new edematous enhancing marrow lesions scattered throughout the visualized spine most notable of lesions at S1, L4, L3, T12 although other smaller foci throughout the thoracic and lumbar spine as well as superior sacrum and iliac bones. Largest focus of S1 measures about 1.3 cm. There is no nodular enhancement of the conus or cauda equina. As described in detail for the recent exam, there is [id number] spinal stenosis L3-4 at which there is facet degenerative change, buckling of the ligamentum flavum, and minimal disc osteophyte complex. There is [id number] narrowing of the right T10-11 neural foramen by facet and ligamentum flavum, mild narrowing on the right at L3-4. Impression: 1. Comparing with the 07/12/2018 exam, there are multiple new scattered edematous enhancing marrow lesions throughout the visualized spine and iliac bones, evidence of multiple myeloma. 2. There is again transitional anatomy of the lumbar spine. There is again degenerative disc disease greatest at what is considered L3-4 and L4-5. There is again mild to moderate spinal stenosis at what is considered L3-L4. Electronically signed by: Jasson Suero MD (07/26/2018 3:37 PM) [id number]
[2018-07-26] MEDS: MORPHINE SULFATE 10 MG/ML VIAL. IV PRN ×3 (16:12→22:34)
[2018-07-26 19:00] VITALS: BP 152/94
[2018-07-26] MEDS: TAMSULOSIN 0.4 MG CAP.ER.24H. PO SCH (20:24)
[2018-07-26 23:00] VITALS: BP 136/62
--- NOTE | 2018-07-27 00:21 | CONS ---
DATE OF CONSULTATION: 07/26/2018 REQUESTING PHYSICIAN: Dr. Connie Pham. REASON FOR CONSULTATION: Multiple myeloma and recent meningitis, now admitted with back pain. HISTORY OF PRESENT ILLNESS: The patient is a 58-year-old gentleman who was diagnosed with multiple myeloma by a bone marrow biopsy on 06/25/2018 which revealed plasma cell neoplasm showing kappa light chain restriction. Plasma cells comprised of about 40-50% of the nucleated marrow cells. Serum protein electrophoresis on 06/18/2018 revealed an M-spike of 6.7 and immunofixation revealed IgA kappa monoclonal antibody. IgA level was more than 6400 and free kappa light chains at 1253 with a kappa lambda ratio of 417.43. Beta-2 microglobulin was also elevated at 3.8 at the time of initial diagnosis. He was treated with a course of Decadron from 06/25/2018 at 40 mg daily for 4 days while waiting for final confirmation of diagnosis. He was then started on chemotherapy with Velcade, Revlimid and Decadron. Velcade and Decadron was initiated on 07/06/2018. He started Revlimid on 07/08/2018. After only one dose of Revlimid, he was admitted to [facility] with fever. He was given antibiotics and then discharged. He took 2 more doses of Revlimid on 07/13/2018 and 07/14/2018 and again developed fever on 07/15/2018 and was admitted to [facility]. He also had headaches and hence he underwent a lumbar puncture, which revealed a WBC of 4000 concerning for bacterial infection and he was given IV antibiotics and was subsequently discharged home on IV meropenem. The patient was admitted again on 07/25/2018 with complaints of back pain, nausea, vomiting and headaches of 1-day duration. The patient now reports that the headaches have completely subsided, but he has significant low back pain and pain in his legs, mostly in the thigh region anteriorly and he reports that the back pain does not seem to be radiating to the legs and he thinks that these are 2 different sites of pain. PAST MEDICAL HISTORY: Hypertension, diverticulosis, GERD, gastritis, anxiety, hypercholesterolemia, tonsillectomy. SOCIAL HISTORY: He is a former smoker. 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 FAMILY HISTORY: Positive for diabetes and hypertension. REVIEW OF SYSTEMS: A 12-point review of system was performed. Pertinent positives are mentioned in the history of present illness. Rest of the system review is negative. PHYSICAL EXAMINATION: GENERAL APPEARANCE: The patient is a 58-year-old gentleman who is well developed and nourished and in no acute cardiorespiratory distress. VITAL SIGNS: Blood pressure 176/100, temperature 97.9. HEENT: Atraumatic, normocephalic. Eyes: No icterus. NECK: Supple. CHEST: Bilaterally symmetrical. No crepitations or rhonchi heard. HEART: S1, S2 normal. ABDOMEN: Soft, nontender, no hepatosplenomegaly. CENTRAL NERVOUS SYSTEM: No focal deficits. LYMPHATICS: No lymphadenopathy. SKIN: No rashes. PSYCHOLOGIC: Mood and affect are appropriate. MUSCULOSKELETAL: No joint effusions. LABORATORY DATA: WBC 8.1, hemoglobin 11, platelet count 241. Sodium at the time of admission was 127 and then it was 139. Creatinine 0.7, total bilirubin 1.2, AST 23, ALT 25, alkaline phosphatase 89, total protein 6.8, albumin 3.1. IMPRESSION AND PLAN: 1. Multiple myeloma diagnosed on 06/25/2018. He has an IgA kappa type multiple myeloma. He has received Decadron 40 mg daily for 4 days from 06/25/2018. He was then started on chemotherapy with Velcade, Decadron and Revlimid on 07/06/2018. Revlimid was not available until 07/08/2018 and he took one dose on 07/08/2018 and another dose on 07/13/2018 and another one on 07/14/2018 after which he was diagnosed with meningitis and hence the Revlimid was put on hold. He also received Velcade on 07/06/2018 and cycle number day 1, day #4 was given on 07/09/2018 and day #8 of Velcade was given on 07/13/2018. He has been responding very well. His total proteins have significantly decreased. His total protein level was as high as 13.8 on 06/18/2018 and it is now 6.8. This indicates a good response to treatment. I will continue to monitor closely. 2. Back pain progressively worse. I will obtain MRI of the lumbar spine. 3. Pain in both the legs. Continue to monitor. Await MRI of the lumbar spine. 4. Meningitis. Continue IV antibiotics per Infectious Diseases. He denies any headaches at this time. PHILLIP FUNEZ MD DR: MARIAM/reina JOB#: [id number] / [id number]
[2018-07-27] MEDS: ONDANSETRON PF 4 MG/2 ML VIAL. IV PRN (01:08)
[2018-07-27] MEDS: oxyCODONE IR 5 MG TABLET PO PRN ×2 (01:08→19:21)
[2018-07-27] MEDS: MORPHINE SULFATE 10 MG/ML VIAL. IV PRN ×4 (01:09→19:21)
[2018-07-27 03:00] VITALS: BP 142/89
[2018-07-27] MEDS: IV NORMAL SALINE 1000ML BAG 1,000 ML IV SCH ×2 (03:45→14:50)
[2018-07-27] MEDS: MEROPENEM 1 GM in IV NORMAL SALINE 100ML 100 ML IV SCH ×3 (04:36→21:39)
[2018-07-27 04:48] LABS: BASO # 0.1 x10^3/uL (0.0-0.2); BASO % 1 % (0-3); EOS # 0.1 x10^3/uL (0.0-0.7); EOS % 1 % (0-3); HEMATOCRIT 29.4 % (39.0-53.0); LYMPH # 1.1 x10^3/uL (1.0-4.8); LYMPH % 15 % (24-48); MEAN CORPUSCULAR HEMOGLOBIN 34 pg (25-35); MEAN CORPUSCULAR HGB CONC 34 g/dL (31-37); MEAN CORPUSCULAR VOLUME 101 fL (79-100); MONO # 0.6 x10^3/uL (0.0-1.1); MONO % 9 % (0-9); NEUT # 5.4 x10^3uL (1.8-7.7); NEUT % 75 % (31-73); PLATELET COUNT 214 x10^3/uL (140-400); RED BLOOD COUNT 2.93 x10^6/uL (4.30-5.70); RED CELL DISTRIBUTION WIDTH 19.7 % (11.5-14.5); WHITE BLOOD COUNT 7.2 x10^3/uL (4.0-11.0)
[2018-07-27 05:15] LABS: ALBUMIN 2.8 g/dL (3.4-5.0); ALBUMIN/GLOBULIN RATIO 0.8 (1.0-1.7); CALCIUM 7.6 mg/dL (8.5-10.1); CREATININE 0.5 mg/dL (0.7-1.3); GFR 171.4; POTASSIUM 3.7 mmol/L (3.5-5.1); TOTAL BILIRUBIN 0.6 mg/dL (0.2-1.0); TOTAL PROTEIN 6.3 g/dL (6.4-8.2)
[2018-07-27 07:00] VITALS: BP 155/87
[2018-07-27] MEDS: DOCUSATE SODIUM 100 MG CAPSULE. PO SCH ×2 (08:04→21:38)
[2018-07-27] MEDS: ASPIRIN 325 MG TABLET PO SCH (08:05)
[2018-07-27] MEDS: MELOXICAM 7.5 MG TABLET PO SCH (08:05)
[2018-07-27] MEDS: CITALOPRAM 20 MG TABLET. PO SCH (08:05)
[2018-07-27] MEDS: ALLOPURINOL 300 MG TABLET. PO SCH (08:05)
[2018-07-27] MEDS: GABAPENTIN 300 MG CAPSULE. PO SCH ×2 (08:05→21:38)
[2018-07-27] MEDS: LOSARTAN POTASSIUM 50 MG TABLET. PO SCH (08:05)
[2018-07-27] MEDS: POLYETHYLENE GLYCOL 3350 17 GM PACKET. PO SCH (08:06)
[2018-07-27] MEDS: PANTOPRAZOLE 40 MG TABLET.DR. PO SCH (08:06)
[2018-07-27] MEDS: FLUTICASONE 50MCG/NASAL SPRAY 16GM BOTTLE. NS SCH (08:06)
--- NOTE | 2018-07-27 08:48 | PDOC ---
PROGRESS NOTES Subjective Subjective HPI - f/u of Multiple myeloma Objective Objective Vital Signs Date Time Temp Pulse Resp B/P (MAP) Pulse Ox O2 Delivery O2 Flow Rate FiO2 07/27/18 08:05 88 155/87 07/27/18 07:00 97.8 18 97 Room Air 97.8 07/26/18 18:49 2.0 Intake and Output 07/27/18 07:00 Intake Total 1750 ml Output Total 4365 ml Balance -2615 ml Intake Oral 1750 ml Output Urine Total 4365 ml Physical Exam Heart: Normal S1, Normal S2 General: Alert, Oriented X3 Lungs: Clear to auscultation Neuro: Normal speech Psych/Mental Status: Mental status NL Assessment Assessment Problems Medical Problems: (1) Hyponatremia Status: Acute (2) Meningitis Status: Acute (3) Vomiting Status: Acute IMPRESSION AND PLAN: 1. Multiple myeloma diagnosed on 06/25/2018. He has an IgA kappa type multiple myeloma. He has received Decadron 40 mg daily for 4 days from 06/25/2018. He was then started on chemotherapy with Velcade, Decadron and Revlimid on 07/06/2018. Revlimid was not available until 07/08/2018 and he took one dose on 07/08/2018 and another dose on 07/13/2018 and another one on 07/14/2018 after which he was diagnosed with meningitis and hence the Revlimid was put on hold. He also received Velcade on 07/06/2018 and cycle number day 1, day #4 was given on 07/09/2018 and day #8 of Velcade was given on 07/13/2018. He has been responding very well. His total proteins have significantly decreased. His total protein level was as high as 13.8 on 06/18/2018 and it is now 6.8. This indicates a good response to treatment. I will continue to monitor closely. Check SPEP. 2. Back pain progressively worse. MRI of the lumbar spine 07/26/18 does not reveal any lytic lesions or compression fractures. Comparing with the 07/12/2018 exam, there are multiple new scattered edematous enhancing marrow lesions throughout the visualized spine and iliac bones, evidence of multiple myeloma. There is again transitional anatomy of the lumbar spine. There is again degenerative disc disease greatest at what is considered L3-4 and L4-5. There is again mild to moderate spinal stenosis at what is considered L3-L4. 3. Pain in both the legs. Continue to monitor. 4. Meningitis. Continue IV antibiotics per Infectious Diseases. He denies any headaches at this time. Comment Review of Relevant I have reviewed the following items cristina (where applicable) has been applied. Labs Laboratory Tests Test 07/25/18 09:00 07/26/18 04:05 07/27/18 04:25 Urine Collection Type Void Urine Color Yellow Urine Clarity Clear Urine pH 8.0 Urine Specific [place] 1.010 Urine Protein Negative mg/dL (NEG-TRACE) Urine Glucose (UA) Negative mg/dL (NEG) Urine Ketones (Stick) Negative mg/dL (NEG) Urine Blood Negative (NEG) Urine Nitrite Negative (NEG) Urine Bilirubin Negative (NEG) Urine Urobilinogen Dipstick 0.2 mg/dL (0.2 mg/dL) Urine Leukocyte Esterase Negative (NEG) Urine RBC 0 /HPF (0-2) Urine WBC 0 /HPF (0-4) Urine Bacteria 0 /HPF (0-FEW) Sodium Level 139 mmol/L (136-145) 138 mmol/L (136-145) Potassium Level 3.7 mmol/L (3.5-5.1) 3.7 mmol/L (3.5-5.1) Chloride Level 103 mmol/L (98-107) 102 mmol/L (98-107) Carbon Dioxide Level 31 mmol/L (21-32) 29 mmol/L (21-32) Anion Gap 5 (6-14) 7 (6-14) Blood Urea Nitrogen 7 mg/dL (8-26) 6 mg/dL (8-26) Creatinine 0.7 mg/dL (0.7-1.3) 0.5 mg/dL (0.7-1.3) Estimated GFR (Cockcroft-Gault) 116.2 171.4 Glucose Level 120 mg/dL (70-99) 115 mg/dL (70-99) Calcium Level 8.3 mg/dL (8.5-10.1) 7.6 mg/dL (8.5-10.1) White Blood Count 7.2 x10^3/uL (4.0-11.0) Red Blood Count 2.93 x10^6/uL (4.30-5.70) Hemoglobin 10.0 g/dL (13.0-17.5) Hematocrit 29.4 % (39.0-53.0) Mean Corpuscular Volume 101 fL (79-100) Mean Corpuscular Hemoglobin 34 pg (25-35) Mean Corpuscular Hemoglobin Concent 34 g/dL (31-37) Red Cell Distribution Width 19.7 % (11.5-14.5) Platelet Count 214 x10^3/uL (140-400) Neutrophils (%) (Auto) 75 % (31-73) Lymphocytes (%) (Auto) 15 % (24-48) Monocytes (%) (Auto) 9 % (0-9) Eosinophils (%) (Auto) 1 % (0-3) Basophils (%) (Auto) 1 % (0-3) Neutrophils # (Auto) 5.4 x10^3uL (1.8-7.7) Lymphocytes # (Auto) 1.1 x10^3/uL (1.0-4.8) Monocytes # (Auto) 0.6 x10^3/uL (0.0-1.1) Eosinophils # (Auto) 0.1 x10^3/uL (0.0-0.7) Basophils # (Auto) 0.1 x10^3/uL (0.0-0.2) BUN/Creatinine Ratio 12 (6-20) Total Bilirubin 0.6 mg/dL (0.2-1.0) Aspartate Amino Transf (AST/SGOT) 18 U/L (15-37) Alanine Aminotransferase (ALT/SGPT) 23 U/L (16-63) Alkaline Phosphatase 94 U/L (46-116) Total Protein 6.3 g/dL (6.4-8.2) Albumin 2.8 g/dL (3.4-5.0) Albumin/Globulin Ratio 0.8 (1.0-1.7) Laboratory Tests Test 07/27/18 04:25 White Blood Count 7.2 x10^3/uL (4.0-11.0) Red Blood Count 2.93 x10^6/uL (4.30-5.70) Hemoglobin 10.0 g/dL (13.0-17.5) Hematocrit 29.4 % (39.0-53.0) Mean Corpuscular Volume 101 fL (79-100) Mean Corpuscular Hemoglobin 34 pg (25-35) Mean Corpuscular Hemoglobin Concent 34 g/dL (31-37) Red Cell Distribution Width 19.7 % (11.5-14.5) Platelet Count 214 x10^3/uL (140-400) Neutrophils (%) (Auto) 75 % (31-73) Lymphocytes (%) (Auto) 15 % (24-48) Monocytes (%) (Auto) 9 % (0-9) Eosinophils (%) (Auto) 1 % (0-3) Basophils (%) (Auto) 1 % (0-3) Neutrophils # (Auto) 5.4 x10^3uL (1.8-7.7) Lymphocytes # (Auto) 1.1 x10^3/uL (1.0-4.8) Monocytes # (Auto) 0.6 x10^3/uL (0.0-1.1) Eosinophils # (Auto) 0.1 x10^3/uL (0.0-0.7) Basophils # (Auto) 0.1 x10^3/uL (0.0-0.2) Sodium Level 138 mmol/L (136-145) Potassium Level 3.7 mmol/L (3.5-5.1) Chloride Level 102 mmol/L (98-107) Carbon Dioxide Level 29 mmol/L (21-32) Anion Gap 7 (6-14) Blood Urea Nitrogen 6 mg/dL (8-26) Creatinine 0.5 mg/dL (0.7-1.3) Estimated GFR (Cockcroft-Gault) 171.4 BUN/Creatinine Ratio 12 (6-20) Glucose Level 115 mg/dL (70-99) Calcium Level 7.6 mg/dL (8.5-10.1) Total Bilirubin 0.6 mg/dL (0.2-1.0) Aspartate Amino Transf (AST/SGOT) 18 U/L (15-37) Alanine Aminotransferase (ALT/SGPT) 23 U/L (16-63) Alkaline Phosphatase 94 U/L (46-116) Total Protein 6.3 g/dL (6.4-8.2) Albumin 2.8 g/dL (3.4-5.0) Albumin/Globulin Ratio 0.8 (1.0-1.7) Microbiology 07/25/18 Blood Culture - Preliminary, Resulted NO GROWTH AFTER 2 DAYS Medications Current Medications Sodium Chloride 1,000 ml @ 1,000 mls/hr 1X ONCE IV Last administered on 07/25at 07:59; Start 07/25/18 at 07:45; Stop 07/25/18 at 08:44; Status DC Hydromorphone HCl (Dilaudid) 1 mg 1X ONCE IV Last administered on 07/25/18at 07:55; Start 07/25/18 at 07:45; Stop 07/25/18 at 07:46; Status DC Ondansetron HCl (Zofran) 4 mg 1X ONCE IV Last administered on 07/25/18at 07:52 ; Start 07/25/18 at 07:45; Stop 07/25/18 at 07:46; Status DC Hydromorphone HCl (Dilaudid) 0.5 mg 1X ONCE IV Last administered on at 10:17; Start 07/25/18 at 10:15; Stop 07/25/18 at 10:16; Status DC Ondansetron HCl (Zofran) 4 mg PRN Q8HRS PRN IV NAUSEA/VOMITING; Start at 10:15; Stop 07/25/18 at 11:37; Status DC Morphine Sulfate (Morphine Sulfate) 4 mg PRN Q2HR PRN IV PAIN Last administered on 07/26/18at 07:29; Start 07/25/18 at 10:15; Stop 07/26/18 at 09 :02; Status DC Sodium Chloride 1,000 ml @ 125 mls/hr Q8H IV Last administered on 07/25/18at 10:08; Start 07/25/18 at 10:08; Stop 07/26/18 at 10:07; Status DC Ondansetron HCl (Zofran) 4 mg PRN Q6HRS PRN IV NAUSEA/VOMITING Last administered on 07/27/18at 01:08; Start 07/25/18 at 11:45 Acetaminophen (Tylenol) 500 mg PRN Q6HRS PRN PO MILD PAIN / TEMP; Start at 11:45 Acetaminophen/ Codeine Phosphate (Tylenol #3) 1 tab PRN Q6HRS PRN PO MODERATE PAIN; Start 07/25/18 at 11:45 Ibuprofen (Motrin) 400 mg PRN Q6HRS PRN PO INFLAMMATION; Start 07/25/18 at 11: 45 Potassium Chloride (Klor-Con) 40 meq 1X ONCE PO Last administered on at 11:45; Start 07/25/18 at 11:45; Stop 07/25/18 at 11:46; Status DC Sodium Chloride 1,000 ml @ 100 mls/hr Q10H IV Last administered on 07/26/18at 20:25; Start 07/25/18 at 11:45 Diphenhydramine HCl (Benadryl) 25 mg PRN QHS PRN PO INSOMNIA Last administered on 07/25/18 22:24; Start 07/25/18 at 11:45 Lidocaine (Lidoderm) 1 patch DAILY PRN TD back pain Last administered on at 18:21; Start 07/25/18 at 11:45 Allopurinol (Zyloprim) 300 mg DAILY PO Last administered on 07/27/18at 08:05; Start 07/26/18 at 09:00 Aspirin (Debbie Aspirin) 325 mg DAILY PO Last administered on 07/27/18at 08:05; Start 07/26/18 at 09:00 Dexamethasone (Decadron) 40 mg WEEKLY PO ; Start 08/01/18 at 09:00; Status UNV Acetaminophen/ Hydrocodone Bitart (Lortab 5/325) 1 tab PRN Q6HRS PRN PO SEVERE PAIN Last administered on 07/26/18at 03:08; Start 07/25/18 at 11:45 Tamsulosin HCl (Flomax) 0.4 mg QHS PO Last administered on 07/26/18at 20:24; Start 07/25/18 at 21:00 Citalopram Hydrobromide (CeleXA) 20 mg DAILY PO Last administered on at 08:05; Start 07/26/18 at 09:00 Fluticasone Propionate (Flonase) 2 spray DAILY NS ; Start 07/26/18 at 09:00 Gabapentin (Neurontin) 300 mg BID PO Last administered on 07/27/18at 08:05; Start 07/25/18 at 21:00 Losartan Potassium (Cozaar) 100 mg DAILY PO Last administered on 07/27/18at 08: 05; Start 07/26/18 at 09:00 Meloxicam (Mobic) 7.5 mg DAILY PO Last administered on 07/27/18at 08:05; Start 07/26/18 at 09:00 Pantoprazole Sodium (Protonix) 40 mg DAILYAC PO Last administered on at 08:06; Start 07/26/18 at 07:30 Meropenem 1 gm/ Sodium Chloride 100 ml @ 200 mls/hr Q8HRS IV Last administered on 07/27/18at 04:36; Start 07/25/18 at 14:00 Trazodone HCl (Desyrel) 100 mg PRN QHS PRN PO INSOMNIA 1ST CHOICE Last administered on 07/25/18at 22:24; Start 07/25/18 at 21:15 Morphine Sulfate (Morphine Sulfate) 10 mg PRN Q2HR PRN IV PAIN SEVERE Last administered on 07/26/18at 09:35; Start 07/26/18 at 09:15; Stop 07/26/18 at 15 :50; Status DC Oxycodone HCl (Roxicodone) 10 mg PRN Q6HRS PRN PO PAIN SEVERE Last administered on 07/27/18at 01:08; Start 07/26/18 at 09:15 Gadobutrol (Gadavist) 10 mmol 1X ONCE IV Last administered on 07/26/18at 14:57 ; Start 07/26/18 at 14:30; Stop 07/26/18 at 14:31; Status DC Morphine Sulfate (Morphine Sulfate) 10 mg PRN Q2HR PRN IV PAIN SEVERE Last administered on 07/27/18at 08:04; Start 07/26/18 at 16:00 Polyethylene Glycol (miraLAX PACKET) 17 gm DAILY PO Last administered on at 08:06; Start 07/27/18 at 09:00 Docusate Sodium (Colace) 100 mg BID PO Last administered on 07/27/18at 08:04; Start 07/27/18 at 09:00 Active Scripts Active Levaquin (Levofloxacin) 500 Mg Tablet 500 Mg PO DAILY06 Flomax (Tamsulosin Hcl) 0.4 Mg Cap.er.24h 0.4 Mg PO QHS Reported Revlimid (Lenalidomide) 25 Mg Capsule 25 Mg PO Gabapentin 300 Mg Capsule 300 Mg PO BID Sulfamethoxazole-Tmp Ds Tablet (Sulfamethoxazole/Trimethoprim) 1 Each Tablet 1 Tab PO BID Dexamethasone 4 Mg Tablet 40 Mg PO WEEKLY Acyclovir 800 Mg Tablet 1 Tab PO BID Aspirin 325 Mg Tablet 1 Tab PO DAILY Hyzaar 100-25 Tablet (Losartan/Hydrochlorothiazide) 1 Each Tablet 1 Each PO DAILY Hydrocodone-Apap 5-325 (Hydrocodone Bit/Acetaminophen) 1 Each Tablet 1 Tab PO PRN Q6HRS PRN Escitalopram Oxalate 10 Mg Tablet 10 Mg PO DAILY Flonase Allergy Relief (Fluticasone Propionate) 9.9 Ml [place].susp 2 Sprays NS DAILY Meloxicam 7.5 Mg Tablet 7.5 Mg PO DAILY Prilosec Otc (Omeprazole Magnesium) 20 Mg Tablet.dr 40 Mg PO DAILY Allopurinol 300 Mg Tablet 300 Mg PO DAILY Vitals/I & O Vital Sign - Last 24 Hours 07/26/18 07/26/18 07/26/18 07/26/18 09:35 09:36 10:05 11:00 Temp 99.0 99.0 Pulse 91 76 Resp 18 B/P (MAP) 176/100 133/68 (89) Pulse Ox 95 95 96 O2 Delivery Room Air Room Air Room Air O2 Flow Rate 2.0 2.0 07/26/18 07/26/18 07/26/18 07/26/18 12:31 13:31 15:00 16:12 Temp 97.9 97.9 Pulse 83 Resp 14 B/P (MAP) 132/78 (96) Pulse Ox 95 95 97 95 O2 Delivery Room Air Room Air Room Air O2 Flow Rate 2.0 2.0 2.0 07/26/18 07/26/18 07/26/18 07/26/18 16:42 18:49 19:00 20:00 Temp 97.9 97.9 Pulse 82 Resp 18 B/P (MAP) 152/94 (113) Pulse Ox 95 95 96 O2 Delivery Room Air Room Air Room Air O2 Flow Rate 2.0 2.0 07/26/18 07/26/18 07/26/18 07/27/18 20:24 22:34 23:00 01:08 Temp 97.4 97.4 Pulse 89 Resp 18 B/P (MAP) 136/62 (86) Pulse Ox 93 O2 Delivery Room Air Room Air Room Air Room Air 10/1607/27/18 07/27/18 07/27/18 01:09 02:51 03:00 04:36 Temp 97.1 97.1 Pulse 79 Resp 18 B/P (MAP) 142/89 (106) Pulse Ox 94 O2 Delivery Room Air Room Air Room Air Room Air 07/27/18 07/27/18 07/27/18 05:13 07:00 08:05 Temp 97.8 97.8 Pulse 88 88 Resp 18 B/P (MAP) 155/87 (109) 155/87 Pulse Ox 97 O2 Delivery Room Air Room Air Intake and Output 07/26/18 07/26/18 07/27/18 15:00 23:00 07:00 Intake Total 570 ml 1180 ml Output Total 2600 ml 625 ml 1140 ml Balance -2030 ml -625 ml 40 ml PHILLIP FUNEZ MD Jul 27, 2018 08:48
--- NOTE | 2018-07-27 10:21 | PDOC ---
Infectious Disease Note Subjective Subjective Patient know to our service from previous admissions Referred to our consult from 07/16 and last progress from 07/22. Re-admitted with c/o severe headache, neck and back pain. Has worse back and leg pain today Whitten in place but no bowel incontinence Off chemo past 2 weeks or so Denies confusion, FC/N/V/rash Denies issues with PICC line Vital Sign Vital Signs Vital Signs Date Time Temp Pulse Resp B/P (MAP) Pulse Ox O2 Delivery O2 Flow Rate FiO2 07/27/18 08:05 88 155/87 07/27/18 08:00 Room Air 2.0 07/27/18 07:00 97.8 18 97 97.8 Physical Exam PHYSICAL EXAM GENERAL: Alert, relaxed appearance HENT: PER, Oral cavity pharynx pink and moist NECK: Supple, no rigidity LUNGS: Clear CV: S1 and S1 ABD: Obese, soft NT : whitten EXT: No gross edema or cyanosis Moves ext SKIN; warm without rash RUE-PICC (07/22) clean Labs Lab Laboratory Tests Test 07/27/18 04:25 White Blood Count 7.2 x10^3/uL (4.0-11.0) Red Blood Count 2.93 x10^6/uL (4.30-5.70) Hemoglobin 10.0 g/dL (13.0-17.5) Hematocrit 29.4 % (39.0-53.0) Mean Corpuscular Volume 101 fL (79-100) Mean Corpuscular Hemoglobin 34 pg (25-35) Mean Corpuscular Hemoglobin Concent 34 g/dL (31-37) Red Cell Distribution Width 19.7 % (11.5-14.5) Platelet Count 214 x10^3/uL (140-400) Neutrophils (%) (Auto) 75 % (31-73) Lymphocytes (%) (Auto) 15 % (24-48) Monocytes (%) (Auto) 9 % (0-9) Eosinophils (%) (Auto) 1 % (0-3) Basophils (%) (Auto) 1 % (0-3) Neutrophils # (Auto) 5.4 x10^3uL (1.8-7.7) Lymphocytes # (Auto) 1.1 x10^3/uL (1.0-4.8) Monocytes # (Auto) 0.6 x10^3/uL (0.0-1.1) Eosinophils # (Auto) 0.1 x10^3/uL (0.0-0.7) Basophils # (Auto) 0.1 x10^3/uL (0.0-0.2) Sodium Level 138 mmol/L (136-145) Potassium Level 3.7 mmol/L (3.5-5.1) Chloride Level 102 mmol/L (98-107) Carbon Dioxide Level 29 mmol/L (21-32) Anion Gap 7 (6-14) Blood Urea Nitrogen 6 mg/dL (8-26) Creatinine 0.5 mg/dL (0.7-1.3) Estimated GFR (Cockcroft-Gault) 171.4 BUN/Creatinine Ratio 12 (6-20) Glucose Level 115 mg/dL (70-99) Calcium Level 7.6 mg/dL (8.5-10.1) Total Bilirubin 0.6 mg/dL (0.2-1.0) Aspartate Amino Transf (AST/SGOT) 18 U/L (15-37) Alanine Aminotransferase (ALT/SGPT) 23 U/L (16-63) Alkaline Phosphatase 94 U/L (46-116) Total Protein 6.3 g/dL (6.4-8.2) Albumin 2.8 g/dL (3.4-5.0) Albumin/Globulin Ratio 0.8 (1.0-1.7) Micro Microbiology 07/25/18 Blood Culture - Preliminary, Resulted NO GROWTH AFTER 1 DAY Objective Assessment Worsening back pain without bowel incontinence (whitten in place for retention) - chronic neuropathy ? worsening - MRI reviewed Recurrent headache in an immunosuppressed patient - improved Urinary retention h/o cerebrospinal fluid pleocytosis consistent with meningitis, most likely bacterial meningitis. - 07/15. CSF WBC 4068, glucose 45, T protein 318.8. cultures neg - HSV 1 &2 PCR negative; WNV IgM negative - 07/15. CT head neg for abscess/sinus disease Multiple myeloma. Last chemo about 2 weeks ago (Revlimid and Velcade) PCN & amoxicillin causing stomach upset Hyponatremia Plan Plan of Care Back pain maybe in part lack of activity -- OT/PT eval Optho eval continue Merrem through 07/29 f/u BC Monitor labs/temp Supportive care No need for isolation D/w EFRA RESENDIZ MD Jul 27, 2018 10:21
[2018-07-27 11:00] VITALS: BP 137/78
[2018-07-27 15:00] VITALS: BP 150/86
--- NOTE | 2018-07-27 15:12 | PDOC ---
PROGRESS NOTES Chief Complaint Chief Complaint Headache, fever in an immunosuppressed w. recent meningitis sepsis Multiple myeloma, on chemotherapy. Encephalopathy, acute on admit PCN & amoxicillin causing stomach upset , Hypertension. Hyperlipidemia. Gastroesophageal reflux disease. thrombocytopenia,mild Hyponatremia Hypokalemia- History of Present Illness History of Present Illness Normal saline for the hyponatremia back pain better with larger doses of IV morphine ID follwoing IV meropenem right PICC Vitals Vitals Vital Signs Date Time Temp Pulse Resp B/P (MAP) Pulse Ox O2 Delivery O2 Flow Rate FiO2 07/27/18 11:00 98.1 80 18 137/78 (97) 98 Room Air 98.1 07/27/18 08:34 2.0 Physical Exam Physical Exam GENERAL: Alert, relaxed appearance HENT: PER, Oral cavity pharynx pink and moist NECK: Supple, no rigidity LUNGS: Clear CV: S1 and S1 ABD: Obese, soft NT : whitten EXT: No gross edema or cyanosis Moves ext SKIN; warm without rash RUE-PICC (07/22) clean General: Alert, Oriented X3 Heart: Normal S1, Normal S2 Lungs: Clear Abdomen: Normal bowel sounds Extremities: No clubbing, No cyanosis, No edema, Normal pulses, No tenderness/ swelling Skin: No rashes, No breakdown, No significant lesion Labs LABS Laboratory Tests Test 07/27/18 04:25 White Blood Count 7.2 x10^3/uL (4.0-11.0) Red Blood Count 2.93 x10^6/uL (4.30-5.70) Hemoglobin 10.0 g/dL (13.0-17.5) Hematocrit 29.4 % (39.0-53.0) Mean Corpuscular Volume 101 fL (79-100) Mean Corpuscular Hemoglobin 34 pg (25-35) Mean Corpuscular Hemoglobin Concent 34 g/dL (31-37) Red Cell Distribution Width 19.7 % (11.5-14.5) Platelet Count 214 x10^3/uL (140-400) Neutrophils (%) (Auto) 75 % (31-73) Lymphocytes (%) (Auto) 15 % (24-48) Monocytes (%) (Auto) 9 % (0-9) Eosinophils (%) (Auto) 1 % (0-3) Basophils (%) (Auto) 1 % (0-3) Neutrophils # (Auto) 5.4 x10^3uL (1.8-7.7) Lymphocytes # (Auto) 1.1 x10^3/uL (1.0-4.8) Monocytes # (Auto) 0.6 x10^3/uL (0.0-1.1) Eosinophils # (Auto) 0.1 x10^3/uL (0.0-0.7) Basophils # (Auto) 0.1 x10^3/uL (0.0-0.2) Sodium Level 138 mmol/L (136-145) Potassium Level 3.7 mmol/L (3.5-5.1) Chloride Level 102 mmol/L (98-107) Carbon Dioxide Level 29 mmol/L (21-32) Anion Gap 7 (6-14) Blood Urea Nitrogen 6 mg/dL (8-26) Creatinine 0.5 mg/dL (0.7-1.3) Estimated GFR (Cockcroft-Gault) 171.4 BUN/Creatinine Ratio 12 (6-20) Glucose Level 115 mg/dL (70-99) Calcium Level 7.6 mg/dL (8.5-10.1) Total Bilirubin 0.6 mg/dL (0.2-1.0) Aspartate Amino Transf (AST/SGOT) 18 U/L (15-37) Alanine Aminotransferase (ALT/SGPT) 23 U/L (16-63) Alkaline Phosphatase 94 U/L (46-116) Total Protein 6.3 g/dL (6.4-8.2) Albumin 2.8 g/dL (3.4-5.0) Albumin/Globulin Ratio 0.8 (1.0-1.7) Assessment and Plan Assessmemt and Plan Problems Medical Problems: (1) Hyponatremia Status: Acute (2) Meningitis Status: Acute (3) Vomiting Status: Acute Comment Review of Relevant I have reviewed the following items cristina (where applicable) has been applied. Labs Laboratory Tests Test 07/26/18 04:05 07/27/18 04:25 Sodium Level 139 mmol/L (136-145) 138 mmol/L (136-145) Potassium Level 3.7 mmol/L (3.5-5.1) 3.7 mmol/L (3.5-5.1) Chloride Level 103 mmol/L (98-107) 102 mmol/L (98-107) Carbon Dioxide Level 31 mmol/L (21-32) 29 mmol/L (21-32) Anion Gap 5 (6-14) 7 (6-14) Blood Urea Nitrogen 7 mg/dL (8-26) 6 mg/dL (8-26) Creatinine 0.7 mg/dL (0.7-1.3) 0.5 mg/dL (0.7-1.3) Estimated GFR (Cockcroft-Gault) 116.2 171.4 Glucose Level 120 mg/dL (70-99) 115 mg/dL (70-99) Calcium Level 8.3 mg/dL (8.5-10.1) 7.6 mg/dL (8.5-10.1) White Blood Count 7.2 x10^3/uL (4.0-11.0) Red Blood Count 2.93 x10^6/uL (4.30-5.70) Hemoglobin 10.0 g/dL (13.0-17.5) Hematocrit 29.4 % (39.0-53.0) Mean Corpuscular Volume 101 fL (79-100) Mean Corpuscular Hemoglobin 34 pg (25-35) Mean Corpuscular Hemoglobin Concent 34 g/dL (31-37) Red Cell Distribution Width 19.7 % (11.5-14.5) Platelet Count 214 x10^3/uL (140-400) Neutrophils (%) (Auto) 75 % (31-73) Lymphocytes (%) (Auto) 15 % (24-48) Monocytes (%) (Auto) 9 % (0-9) Eosinophils (%) (Auto) 1 % (0-3) Basophils (%) (Auto) 1 % (0-3) Neutrophils # (Auto) 5.4 x10^3uL (1.8-7.7) Lymphocytes # (Auto) 1.1 x10^3/uL (1.0-4.8) Monocytes # (Auto) 0.6 x10^3/uL (0.0-1.1) Eosinophils # (Auto) 0.1 x10^3/uL (0.0-0.7) Basophils # (Auto) 0.1 x10^3/uL (0.0-0.2) BUN/Creatinine Ratio 12 (6-20) Total Bilirubin 0.6 mg/dL (0.2-1.0) Aspartate Amino Transf (AST/SGOT) 18 U/L (15-37) Alanine Aminotransferase (ALT/SGPT) 23 U/L (16-63) Alkaline Phosphatase 94 U/L (46-116) Total Protein 6.3 g/dL (6.4-8.2) Albumin 2.8 g/dL (3.4-5.0) Albumin/Globulin Ratio 0.8 (1.0-1.7) Laboratory Tests Test 07/27/18 04:25 White Blood Count 7.2 x10^3/uL (4.0-11.0) Red Blood Count 2.93 x10^6/uL (4.30-5.70) Hemoglobin 10.0 g/dL (13.0-17.5) Hematocrit 29.4 % (39.0-53.0) Mean Corpuscular Volume 101 fL (79-100) Mean Corpuscular Hemoglobin 34 pg (25-35) Mean Corpuscular Hemoglobin Concent 34 g/dL (31-37) Red Cell Distribution Width 19.7 % (11.5-14.5) Platelet Count 214 x10^3/uL (140-400) Neutrophils (%) (Auto) 75 % (31-73) Lymphocytes (%) (Auto) 15 % (24-48) Monocytes (%) (Auto) 9 % (0-9) Eosinophils (%) (Auto) 1 % (0-3) Basophils (%) (Auto) 1 % (0-3) Neutrophils # (Auto) 5.4 x10^3uL (1.8-7.7) Lymphocytes # (Auto) 1.1 x10^3/uL (1.0-4.8) Monocytes # (Auto) 0.6 x10^3/uL (0.0-1.1) Eosinophils # (Auto) 0.1 x10^3/uL (0.0-0.7) Basophils # (Auto) 0.1 x10^3/uL (0.0-0.2) Sodium Level 138 mmol/L (136-145) Potassium Level 3.7 mmol/L (3.5-5.1) Chloride Level 102 mmol/L (98-107) Carbon Dioxide Level 29 mmol/L (21-32) Anion Gap 7 (6-14) Blood Urea Nitrogen 6 mg/dL (8-26) Creatinine 0.5 mg/dL (0.7-1.3) Estimated GFR (Cockcroft-Gault) 171.4 BUN/Creatinine Ratio 12 (6-20) Glucose Level 115 mg/dL (70-99) Calcium Level 7.6 mg/dL (8.5-10.1) Total Bilirubin 0.6 mg/dL (0.2-1.0) Aspartate Amino Transf (AST/SGOT) 18 U/L (15-37) Alanine Aminotransferase (ALT/SGPT) 23 U/L (16-63) Alkaline Phosphatase 94 U/L (46-116) Total Protein 6.3 g/dL (6.4-8.2) Albumin 2.8 g/dL (3.4-5.0) Albumin/Globulin Ratio 0.8 (1.0-1.7) Microbiology 07/25/18 Blood Culture - Preliminary, Resulted NO GROWTH AFTER 2 DAYS Medications Current Medications Sodium Chloride 1,000 ml @ 1,000 mls/hr 1X ONCE IV Last administered on 07/25at 07:59; Start 07/25/18 at 07:45; Stop 07/25/18 at 08:44; Status DC Hydromorphone HCl (Dilaudid) 1 mg 1X ONCE IV Last administered on 07/25/18at 07:55; Start 07/25/18 at 07:45; Stop 07/25/18 at 07:46; Status DC Ondansetron HCl (Zofran) 4 mg 1X ONCE IV Last administered on 07/25/18at 07:52 ; Start 07/25/18 at 07:45; Stop 07/25/18 at 07:46; Status DC Hydromorphone HCl (Dilaudid) 0.5 mg 1X ONCE IV Last administered on at 10:17; Start 07/25/18 at 10:15; Stop 07/25/18 at 10:16; Status DC Ondansetron HCl (Zofran) 4 mg PRN Q8HRS PRN IV NAUSEA/VOMITING; Start at 10:15; Stop 07/25/18 at 11:37; Status DC Morphine Sulfate (Morphine Sulfate) 4 mg PRN Q2HR PRN IV PAIN Last administered on 07/26/18at 07:29; Start 07/25/18 at 10:15; Stop 07/26/18 at 09 :02; Status DC Sodium Chloride 1,000 ml @ 125 mls/hr Q8H IV Last administered on 07/25/18at 10:08; Start 07/25/18 at 10:08; Stop 07/26/18 at 10:07; Status DC Ondansetron HCl (Zofran) 4 mg PRN Q6HRS PRN IV NAUSEA/VOMITING Last administered on 07/27/18at 01:08; Start 07/25/18 at 11:45 Acetaminophen (Tylenol) 500 mg PRN Q6HRS PRN PO MILD PAIN / TEMP; Start at 11:45 Acetaminophen/ Codeine Phosphate (Tylenol #3) 1 tab PRN Q6HRS PRN PO MODERATE PAIN; Start 07/25/18 at 11:45 Ibuprofen (Motrin) 400 mg PRN Q6HRS PRN PO INFLAMMATION; Start 07/25/18 at 11: 45 Potassium Chloride (Klor-Con) 40 meq 1X ONCE PO Last administered on at 11:45; Start 07/25/18 at 11:45; Stop 07/25/18 at 11:46; Status DC Sodium Chloride 1,000 ml @ 100 mls/hr Q10H IV Last administered on 07/27/18at 14:50; Start 07/25/18 at 11:45 Diphenhydramine HCl (Benadryl) 25 mg PRN QHS PRN PO INSOMNIA Last administered on 07/25/18at 22:24; Start 07/25/18 at 11:45 Lidocaine (Lidoderm) 1 patch DAILY PRN TD back pain Last administered on at 18:21; Start 07/25/18 at 11:45 Allopurinol (Zyloprim) 300 mg DAILY PO Last administered on 07/27/18at 08:05; Start 07/26/18 at 09:00 Aspirin (Debbie Aspirin) 325 mg DAILY PO Last administered on 07/27/18at 08:05; Start 07/26/18 at 09:00 Dexamethasone (Decadron) 40 mg WEEKLY PO ; Start 08/01/18 at 09:00; Status UNV Acetaminophen/ Hydrocodone Bitart (Lortab 5/325) 1 tab PRN Q6HRS PRN PO SEVERE PAIN Last administered on 07/26/18at 03:08; Start 07/25/18 at 11:45 Tamsulosin HCl (Flomax) 0.4 mg QHS PO Last administered on 07/26/18at 20:24; Start 07/25/18 at 21:00 Citalopram Hydrobromide (CeleXA) 20 mg DAILY PO Last administered on at 08:05; Start 07/26/18 at 09:00 Fluticasone Propionate (Flonase) 2 spray DAILY NS ; Start 07/26/18 at 09:00 Gabapentin (Neurontin) 300 mg BID PO Last administered on 07/27/18at 08:05; Start 07/25/18 at 21:00 Losartan Potassium (Cozaar) 100 mg DAILY PO Last administered on 07/27/18 08: 05; Start 07/26/18 at 09:00 Meloxicam (Mobic) 7.5 mg DAILY PO Last administered on 07/27/18 08:05; Start 07/26/18 at 09:00 Pantoprazole Sodium (Protonix) 40 mg DAILYAC PO Last administered on 08:06; Start 07/26/18 at 07:30 Meropenem 1 gm/ Sodium Chloride 100 ml @ 200 mls/hr Q8HRS IV Last administered on 07/27/18at 14:51; Start 07/25/18 at 14:00 Trazodone HCl (Desyrel) 100 mg PRN QHS PRN PO INSOMNIA 1ST CHOICE Last administered on 07/25/18at 22:24; Start 07/25/18 at 21:15 Morphine Sulfate (Morphine Sulfate) 10 mg PRN Q2HR PRN IV PAIN SEVERE Last administered on 07/26/18at 09:35; Start 07/26/18 at 09:15; Stop 07/26/18 at 15 :50; Status DC Oxycodone HCl (Roxicodone) 10 mg PRN Q6HRS PRN PO PAIN SEVERE Last administered on 07/27/18at 01:08; Start 07/26/18 at 09:15 Gadobutrol (Gadavist) 10 mmol 1X ONCE IV Last administered on 07/26/18at 14:57 ; Start 07/26/18 at 14:30; Stop 07/26/18 at 14:31; Status DC Morphine Sulfate (Morphine Sulfate) 10 mg PRN Q2HR PRN IV PAIN SEVERE Last administered on 07/27/18at 08:04; Start 07/26/18 at 16:00 Polyethylene Glycol (miraLAX PACKET) 17 gm DAILY PO Last administered on at 08:06; Start 07/27/18 at 09:00 Docusate Sodium (Colace) 100 mg BID PO Last administered on 07/27/18at 08:04; Start 07/27/18 at 09:00 Active Scripts Active Levaquin (Levofloxacin) 500 Mg Tablet 500 Mg PO DAILY06 Flomax (Tamsulosin Hcl) 0.4 Mg Cap.er.24h 0.4 Mg PO QHS Reported Revlimid (Lenalidomide) 25 Mg Capsule 25 Mg PO Gabapentin 300 Mg Capsule 300 Mg PO BID Sulfamethoxazole-Tmp Ds Tablet (Sulfamethoxazole/Trimethoprim) 1 Each Tablet 1 Tab PO BID Dexamethasone 4 Mg Tablet 40 Mg PO WEEKLY Acyclovir 800 Mg Tablet 1 Tab PO BID Aspirin 325 Mg Tablet 1 Tab PO DAILY Hyzaar 100-25 Tablet (Losartan/Hydrochlorothiazide) 1 Each Tablet 1 Each PO DAILY Hydrocodone-Apap 5-325 (Hydrocodone Bit/Acetaminophen) 1 Each Tablet 1 Tab PO PRN Q6HRS PRN Escitalopram Oxalate 10 Mg Tablet 10 Mg PO DAILY Flonase Allergy Relief (Fluticasone Propionate) 9.9 Ml [place].susp 2 Sprays NS DAILY Meloxicam 7.5 Mg Tablet 7.5 Mg PO DAILY Prilosec Otc (Omeprazole Magnesium) 20 Mg Tablet.dr 40 Mg PO DAILY Allopurinol 300 Mg Tablet 300 Mg PO DAILY Vitals/I & O Vital Sign - Last 24 Hours 07/26/18 07/26/18 07/26/18 07/26/18 16:12 18:49 19:00 20:00 Temp 97.9 97.9 Pulse 82 Resp 18 B/P (MAP) 152/94 (113) Pulse Ox 95 95 96 O2 Delivery Room Air Room Air Room Air Room Air O2 Flow Rate 2.0 2.0 07/26/18 07/26/18 07/26/18 07/27/18 20:24 22:34 23:00 01:08 Temp 97.4 97.4 Pulse 89 Resp 18 B/P (MAP) 136/62 (86) Pulse Ox 93 O2 Delivery Room Air Room Air Room Air Room Air 07/27/18 07/27/18 07/27/18 07/27/18 01:09 02:51 03:00 04:36 Temp 97.1 97.1 Pulse 79 Resp 18 B/P (MAP) 142/89 (106) Pulse Ox 94 O2 Delivery Room Air Room Air Room Air Room Air 07/27/18 07/27/18 07/27/18 07/27/18 07:00 08:00 08:05 08:34 Temp 97.8 97.8 Pulse 88 88 Resp 18 B/P (MAP) 155/87 (109) 155/87 Pulse Ox 97 98 O2 Delivery Room Air Room Air Room Air O2 Flow Rate 2.0 2.0 07/27/18 11:00 Temp 98.1 98.1 Pulse 80 Resp 18 B/P (MAP) 137/78 (97) Pulse Ox 98 O2 Delivery Room Air Intake and Output 07/26/18 07/26/18 07/27/18 15:00 23:00 07:00 Intake Total 570 ml 1180 ml Output Total 2600 ml 625 ml 1140 ml Balance -2030 ml -625 ml 40 ml ANAYELI FLOWERS MD Jul 27, 2018 15:12
[2018-07-27 19:00] VITALS: BP 134/75
[2018-07-27] MEDS: diphenhydrAMINE HCL 25 MG CAPSULE PO PRN (21:38)
[2018-07-27] MEDS: traZODone 100 MG TABLET. PO PRN (21:38)
[2018-07-27] MEDS: TAMSULOSIN 0.4 MG CAP.ER.24H. PO SCH (21:38)
[2018-07-27 23:00] VITALS: BP 140/82
[2018-07-28 03:00] VITALS: BP 139/69
[2018-07-28] MEDS: IV NORMAL SALINE 1000ML BAG 1,000 ML IV SCH ×3 (04:05→13:33)
[2018-07-28] MEDS: MEROPENEM 1 GM in IV NORMAL SALINE 100ML 100 ML IV SCH ×3 (04:55→21:52)
[2018-07-28] MEDS: oxyCODONE IR 5 MG TABLET PO PRN ×2 (04:58→18:22)
[2018-07-28] MEDS: MORPHINE SULFATE 10 MG/ML VIAL. IV PRN ×4 (05:03→21:51)
--- NOTE | 2018-07-28 06:54 | PDOC ---
Infectious Disease Note Subjective Subjective Patient know to our service from previous admissions Referred to our consult from 07/16 and last progress from 07/22. Has some constipation issues. Re-admitted with c/o severe headache, neck and back pain - better Some sinus congestion Has worse back and leg pain - that is better now with ambulation Whitten in place Off chemo past 2 weeks or so Denies confusion, FC/N/V/rash Denies issues with PICC line ROS ROS o/w neg Vital Sign Vital Signs Vital Signs Date Time Temp Pulse Resp B/P (MAP) Pulse Ox O2 Delivery O2 Flow Rate FiO2 07/28/18 05:58 97 Room Air 07/28/18 03:00 97.0 70 18 139/69 (92) 97.0 07/27/18 20:00 2.0 Physical Exam PHYSICAL EXAM GENERAL: Alert, relaxed appearance HENT: PER, Oral cavity pharynx pink and moist NECK: Supple, no rigidity LUNGS: Clear CV: S1 and S1 ABD: Obese, soft NT : whitten EXT: No gross edema or cyanosis Moves ext SKIN; warm without rash RUE-PICC (07/22) clean Labs Micro Microbiology 07/25/18 Blood Culture - Preliminary, Resulted NO GROWTH AFTER 1 DAY Objective Assessment Back pain without bowel incontinence (whitten in place for retention) - chronic neuropathy- better with ambulation Sinus congestion Recurrent headache in an immunosuppressed patient - improved Urinary retention h/o cerebrospinal fluid pleocytosis consistent with meningitis, most likely bacterial meningitis. - 07/15. CSF WBC 4068, glucose 45, T protein 318.8. cultures neg - HSV 1 &2 PCR negative; WNV IgM negative - 07/15. CT head neg for abscess/sinus disease Multiple myeloma. Last chemo about 2 weeks ago (Revlimid and Velcade) PCN & amoxicillin causing stomach upset Hyponatremia Plan Plan of Care Optho eval - will have to be outpatient Add [place] spray Constipation per primary continue Merrem through 07/29 f/u BC Monitor labs in am/temp Supportive care No need for isolation Cont OT/PT EFRA RESENDIZ MD Jul 28, 2018 06:54
[2018-07-28 07:00] VITALS: BP 155/92
[2018-07-28] MEDS ORDERED: SODIUM CHLORIDE 0.65% NASAL SPRAY 45ML BOTTLE. NS PRN (08:00)
[2018-07-28] MEDS: POLYETHYLENE GLYCOL 3350 17 GM PACKET. PO SCH (08:25)
[2018-07-28] MEDS: ALLOPURINOL 300 MG TABLET. PO SCH (08:26)
[2018-07-28] MEDS: MELOXICAM 7.5 MG TABLET PO SCH (08:26)
[2018-07-28] MEDS: LOSARTAN POTASSIUM 50 MG TABLET. PO SCH (08:26)
[2018-07-28] MEDS: GABAPENTIN 300 MG CAPSULE. PO SCH ×2 (08:26→21:51)
[2018-07-28] MEDS: PANTOPRAZOLE 40 MG TABLET.DR. PO SCH (08:26)
[2018-07-28] MEDS: ASPIRIN 325 MG TABLET PO SCH (08:26)
[2018-07-28] MEDS: CITALOPRAM 20 MG TABLET. PO SCH (08:26)
[2018-07-28] MEDS: DOCUSATE SODIUM 100 MG CAPSULE. PO SCH ×2 (08:26→21:49)
[2018-07-28] MEDS: FLUTICASONE 50MCG/NASAL SPRAY 16GM BOTTLE. NS SCH (08:33)
[2018-07-28 11:00] VITALS: BP 146/75
--- NOTE | 2018-07-28 11:43 | PDOC ---
PROGRESS NOTES Chief Complaint Chief Complaint Headache, fever in an immunosuppressed w. recent meningitis sepsis Multiple myeloma, on chemotherapy. Encephalopathy, acute on admit PCN & amoxicillin causing stomach upset , Hypertension. Hyperlipidemia. Gastroesophageal reflux disease. thrombocytopenia,mild Hyponatremia Hypokalemia- History of Present Illness History of Present Illness Pt seen and examined VSS Seems sleepy Vitals Vitals Vital Signs Date Time Temp Pulse Resp B/P (MAP) Pulse Ox O2 Delivery O2 Flow Rate FiO2 07/28/18 08:26 79 155/92 07/28/18 08:00 Room Air 07/28/18 07:00 97.9 20 98 97.9 07/27/18 20:00 2.0 Physical Exam Physical Exam GENERAL: Alert, relaxed appearance HENT: PER, Oral cavity pharynx pink and moist NECK: Supple, no rigidity LUNGS: Clear CV: S1 and S1 ABD: Obese, soft NT : whitten EXT: No gross edema or cyanosis Moves ext SKIN; warm without rash RUE-PICC (07/22) clean General: Alert, Oriented X3 Heart: Normal S1, Normal S2 Lungs: Clear Abdomen: Normal bowel sounds Extremities: No clubbing, No cyanosis, No edema, Normal pulses, No tenderness/ swelling Skin: No rashes, No breakdown, No significant lesion Review of Systems Review of Systems co pain co weakness Assessment and Plan Assessmemt and Plan Problems Medical Problems: (1) Hyponatremia Status: Acute (2) Meningitis Status: Acute (3) Vomiting Status: Acute Headache, fever in an immunosuppressed w. recent meningitis sepsis Multiple myeloma, on chemotherapy. Encephalopathy, acute on admit PCN & amoxicillin causing stomach upset , Hypertension. Hyperlipidemia. Gastroesophageal reflux disease. thrombocytopenia,mild Hyponatremia Hypokalemia- Plan IV antibx Labs Home meds Narcotics Eventually needs chemo Comment Review of Relevant I have reviewed the following items cristina (where applicable) has been applied. Labs Laboratory Tests Test 07/27/18 04:25 White Blood Count 7.2 x10^3/uL (4.0-11.0) Red Blood Count 2.93 x10^6/uL (4.30-5.70) Hemoglobin 10.0 g/dL (13.0-17.5) Hematocrit 29.4 % (39.0-53.0) Mean Corpuscular Volume 101 fL (79-100) Mean Corpuscular Hemoglobin 34 pg (25-35) Mean Corpuscular Hemoglobin Concent 34 g/dL (31-37) Red Cell Distribution Width 19.7 % (11.5-14.5) Platelet Count 214 x10^3/uL (140-400) Neutrophils (%) (Auto) 75 % (31-73) Lymphocytes (%) (Auto) 15 % (24-48) Monocytes (%) (Auto) 9 % (0-9) Eosinophils (%) (Auto) 1 % (0-3) Basophils (%) (Auto) 1 % (0-3) Neutrophils # (Auto) 5.4 x10^3uL (1.8-7.7) Lymphocytes # (Auto) 1.1 x10^3/uL (1.0-4.8) Monocytes # (Auto) 0.6 x10^3/uL (0.0-1.1) Eosinophils # (Auto) 0.1 x10^3/uL (0.0-0.7) Basophils # (Auto) 0.1 x10^3/uL (0.0-0.2) Sodium Level 138 mmol/L (136-145) Potassium Level 3.7 mmol/L (3.5-5.1) Chloride Level 102 mmol/L (98-107) Carbon Dioxide Level 29 mmol/L (21-32) Anion Gap 7 (6-14) Blood Urea Nitrogen 6 mg/dL (8-26) Creatinine 0.5 mg/dL (0.7-1.3) Estimated GFR (Cockcroft-Gault) 171.4 BUN/Creatinine Ratio 12 (6-20) Glucose Level 115 mg/dL (70-99) Calcium Level 7.6 mg/dL (8.5-10.1) Total Bilirubin 0.6 mg/dL (0.2-1.0) Aspartate Amino Transf (AST/SGOT) 18 U/L (15-37) Alanine Aminotransferase (ALT/SGPT) 23 U/L (16-63) Alkaline Phosphatase 94 U/L (46-116) Total Protein 6.3 g/dL (6.4-8.2) Albumin 2.8 g/dL (3.4-5.0) Albumin/Globulin Ratio 0.8 (1.0-1.7) Microbiology 07/25/18 Blood Culture - Preliminary, Resulted NO GROWTH AFTER 3 DAYS Medications Current Medications Sodium Chloride 1,000 ml @ 1,000 mls/hr 1X ONCE IV Last administered on 07/25at 07:59; Start 07/25/18 at 07:45; Stop 07/25/18 at 08:44; Status DC Hydromorphone HCl (Dilaudid) 1 mg 1X ONCE IV Last administered on 07/25/18at 07:55; Start 07/25/18 at 07:45; Stop 07/25/18 at 07:46; Status DC Ondansetron HCl (Zofran) 4 mg 1X ONCE IV Last administered on 07/25/18at 07:52 ; Start 07/25/18 at 07:45; Stop 07/25/18 at 07:46; Status DC Hydromorphone HCl (Dilaudid) 0.5 mg 1X ONCE IV Last administered on at 10:17; Start 07/25/18 at 10:15; Stop 07/25/18 at 10:16; Status DC Ondansetron HCl (Zofran) 4 mg PRN Q8HRS PRN IV NAUSEA/VOMITING; Start at 10:15; Stop 07/25/18 at 11:37; Status DC Morphine Sulfate (Morphine Sulfate) 4 mg PRN Q2HR PRN IV PAIN Last administered on 07/26/18at 07:29; Start 07/25/18 at 10:15; Stop 07/26/18 at 09 :02; Status DC Sodium Chloride 1,000 ml @ 125 mls/hr Q8H IV Last administered on 07/25/18at 10:08; Start 07/25/18 at 10:08; Stop 07/26/18 at 10:07; Status DC Ondansetron HCl (Zofran) 4 mg PRN Q6HRS PRN IV NAUSEA/VOMITING Last administered on 07/27/18at 01:08; Start 07/25/18 at 11:45 Acetaminophen (Tylenol) 500 mg PRN Q6HRS PRN PO MILD PAIN / TEMP; Start at 11:45 Acetaminophen/ Codeine Phosphate (Tylenol #3) 1 tab PRN Q6HRS PRN PO MODERATE PAIN; Start 07/25/18 at 11:45 Ibuprofen (Motrin) 400 mg PRN Q6HRS PRN PO INFLAMMATION; Start 07/25/18 at 11: 45 Potassium Chloride (Klor-Con) 40 meq 1X ONCE PO Last administered on 11:45; Start 07/25/18 at 11:45; Stop 07/25/18 at 11:46; Status DC Sodium Chloride 1,000 ml @ 100 mls/hr Q10H IV Last administered on 07/28/18 04:05; Start 07/25/18 at 11:45 Diphenhydramine HCl (Benadryl) 25 mg PRN QHS PRN PO INSOMNIA Last administered on 07/27/18 21:38; Start 07/25/18 at 11:45 Lidocaine (Lidoderm) 1 patch DAILY PRN TD back pain Last administered on 18:21; Start 07/25/18 at 11:45 Allopurinol (Zyloprim) 300 mg DAILY PO Last administered on 07/28/18 08:26; Start 07/26/18 at 09:00 Aspirin (Debbie Aspirin) 325 mg DAILY PO Last administered on 07/28/18 08:26; Start 07/26/18 at 09:00 Dexamethasone (Decadron) 40 mg WEEKLY PO ; Start 08/01/18 at 09:00; Status UNV Acetaminophen/ Hydrocodone Bitart (Lortab 5/325) 1 tab PRN Q6HRS PRN PO SEVERE PAIN Last administered on 07/26/18 03:08; Start 07/25/18 at 11:45 Tamsulosin HCl (Flomax) 0.4 mg QHS PO Last administered on 07/27/18 21:38; Start 07/25/18 at 21:00 Citalopram Hydrobromide (CeleXA) 20 mg DAILY PO Last administered on 08:26; Start 07/26/18 at 09:00 Fluticasone Propionate (Flonase) 2 spray DAILY NS ; Start 07/26/18 at 09:00 Gabapentin (Neurontin) 300 mg BID PO Last administered on 07/28/18 08:26; Start 07/25/18 at 21:00 Losartan Potassium (Cozaar) 100 mg DAILY PO Last administered on 07/28/18at 08: 26; Start 07/26/18 at 09:00 Meloxicam (Mobic) 7.5 mg DAILY PO Last administered on 07/28/18at 08:26; Start 07/26/18 at 09:00 Pantoprazole Sodium (Protonix) 40 mg DAILYAC PO Last administered on at 08:26; Start 07/26/18 at 07:30 Meropenem 1 gm/ Sodium Chloride 100 ml @ 200 mls/hr Q8HRS IV Last administered on 07/28/18at 04:55; Start 07/25/18 at 14:00 Trazodone HCl (Desyrel) 100 mg PRN QHS PRN PO INSOMNIA 1ST CHOICE Last administered on 07/27/18at 21:38; Start 07/25/18 at 21:15 Morphine Sulfate (Morphine Sulfate) 10 mg PRN Q2HR PRN IV PAIN SEVERE Last administered on 07/26/18at 09:35; Start 07/26/18 at 09:15; Stop 07/26/18 at 15 :50; Status DC Oxycodone HCl (Roxicodone) 10 mg PRN Q6HRS PRN PO PAIN SEVERE Last administered on 07/28/18at 04:58; Start 07/26/18 at 09:15 Gadobutrol (Gadavist) 10 mmol 1X ONCE IV Last administered on 07/26/18at 14:57 ; Start 07/26/18 at 14:30; Stop 07/26/18 at 14:31; Status DC Morphine Sulfate (Morphine Sulfate) 10 mg PRN Q2HR PRN IV PAIN SEVERE Last administered on 07/28/18at 08:25; Start 07/26/18 at 16:00 Polyethylene Glycol (miraLAX PACKET) 17 gm DAILY PO Last administered on at 08:25; Start 07/27/18 at 09:00 Docusate Sodium (Colace) 100 mg BID PO Last administered on 07/28/18at 08:26; Start 07/27/18 at 09:00 Sodium Chloride (Sal[place] Nasal) 1 rony PRN Q1HR PRN NS NASAL CONGESTION; Start 07/28/18 at 08:00 Active Scripts Active Levaquin (Levofloxacin) 500 Mg Tablet 500 Mg PO DAILY06 Flomax (Tamsulosin Hcl) 0.4 Mg Cap.er.24h 0.4 Mg PO QHS Reported Revlimid (Lenalidomide) 25 Mg Capsule 25 Mg PO Gabapentin 300 Mg Capsule 300 Mg PO BID Sulfamethoxazole-Tmp Ds Tablet (Sulfamethoxazole/Trimethoprim) 1 Each Tablet 1 Tab PO BID Dexamethasone 4 Mg Tablet 40 Mg PO WEEKLY Acyclovir 800 Mg Tablet 1 Tab PO BID Aspirin 325 Mg Tablet 1 Tab PO DAILY Hyzaar 100-25 Tablet (Losartan/Hydrochlorothiazide) 1 Each Tablet 1 Each PO DAILY Hydrocodone-Apap 5-325 (Hydrocodone Bit/Acetaminophen) 1 Each Tablet 1 Tab PO PRN Q6HRS PRN Escitalopram Oxalate 10 Mg Tablet 10 Mg PO DAILY Flonase Allergy Relief (Fluticasone Propionate) 9.9 Ml [place].susp 2 Sprays NS DAILY Meloxicam 7.5 Mg Tablet 7.5 Mg PO DAILY Prilosec Otc (Omeprazole Magnesium) 20 Mg Tablet.dr 40 Mg PO DAILY Allopurinol 300 Mg Tablet 300 Mg PO DAILY Vitals/I & O Vital Sign - Last 24 Hours 07/27/18 07/27/18 07/27/18 07/27/18 15:00 19:00 19:21 19:21 Temp 97.5 97.9 97.5 97.9 Pulse 74 81 Resp 18 18 B/P (MAP) 150/86 (107) 134/75 (94) Pulse Ox 97 95 O2 Delivery Room Air Room Air Room Air Room Air 07/27/18 07/27/18 07/27/18 07/28/18 19:51 20:00 23:00 03:00 Temp 97.7 97.0 97.7 97.0 Pulse 79 70 Resp 18 18 B/P (MAP) 140/82 (101) 139/69 (92) Pulse Ox 97 99 O2 Delivery Room Air Room Air Room Air O2 Flow Rate 2.0 2.0 07/28/18 07/28/18 07/28/18 07/28/18 04:58 05:03 05:33 05:58 Pulse Ox 97 97 O2 Delivery Room Air Room Air Room Air Room Air 07/28/18 07/28/18 07/28/18 07:00 08:00 08:26 Temp 97.9 97.9 Pulse 79 79 Resp 20 B/P (MAP) 155/92 (113) 155/92 Pulse Ox 98 O2 Delivery Room Air Room Air Intake and Output 07/27/18 07/27/18 07/28/18 15:01 23:01 07:01 Intake Total 1000 ml Output Total 2000 ml 1900 ml Balance -2000 ml -900 ml FRANCISCO KO III DO Jul 28, 2018 11:43
[2018-07-28 15:00] VITALS: BP 146/82
[2018-07-28 19:00] VITALS: BP 146/73
[2018-07-28] MEDS ORDERED: LACTOBACILLUS RHAMNOSUS GG 1 CAPSULE. PO SCH (21:00)
[2018-07-28] MEDS: TAMSULOSIN 0.4 MG CAP.ER.24H. PO SCH (21:51)
[2018-07-28] MEDS: diphenhydrAMINE HCL 25 MG CAPSULE PO PRN (21:51)
[2018-07-28] MEDS: traZODone 100 MG TABLET. PO PRN (21:51)
[2018-07-28 23:00] VITALS: BP 141/81
[2018-07-29] MEDS: MORPHINE SULFATE 10 MG/ML VIAL. IV PRN ×7 (01:59→22:06)
[2018-07-29] MEDS: IV NORMAL SALINE 1000ML BAG 1,000 ML IV SCH ×2 (01:59→14:17)
[2018-07-29] MEDS: oxyCODONE IR 5 MG TABLET PO PRN ×3 (02:00→20:02)
[2018-07-29 03:00] VITALS: BP 119/79
[2018-07-29] MEDS: MEROPENEM 1 GM in IV NORMAL SALINE 100ML 100 ML IV SCH ×3 (05:56→22:06)
[2018-07-29 06:38] LABS: BASO # 0.1 x10^3/uL (0.0-0.2); BASO % 1 % (0-3); EOS # 0.1 x10^3/uL (0.0-0.7); EOS % 2 % (0-3); HEMATOCRIT 28.4 % (39.0-53.0); HEMOGLOBIN 9.9 g/dL (13.0-17.5); LYMPH # 1.4 x10^3/uL (1.0-4.8); LYMPH % 31 % (24-48); MEAN CORPUSCULAR HEMOGLOBIN 35 pg (25-35); MEAN CORPUSCULAR HGB CONC 35 g/dL (31-37); MEAN CORPUSCULAR VOLUME 101 fL (79-100); MONO # 0.5 x10^3/uL (0.0-1.1); MONO % 10 % (0-9); NEUT # 2.5 x10^3uL (1.8-7.7); NEUT % 56 % (31-73); PLATELET COUNT 182 x10^3/uL (140-400); RED BLOOD COUNT 2.81 x10^6/uL (4.30-5.70); RED CELL DISTRIBUTION WIDTH 18.8 % (11.5-14.5); WHITE BLOOD COUNT 4.5 x10^3/uL (4.0-11.0)
[2018-07-29 06:44] LABS: ALBUMIN 2.9 g/dL (3.4-5.0); ALBUMIN/GLOBULIN RATIO 0.8 (1.0-1.7); CALCIUM 7.9 mg/dL (8.5-10.1); CREATININE 0.6 mg/dL (0.7-1.3); GFR 138.9; POTASSIUM 4.2 mmol/L (3.5-5.1); TOTAL BILIRUBIN 0.6 mg/dL (0.2-1.0); TOTAL PROTEIN 6.5 g/dL (6.4-8.2)
[2018-07-29 07:00] VITALS: BP 167/102
--- NOTE | 2018-07-29 07:03 | PDOC ---
Infectious Disease Note Subjective Subjective Patient know to our service from previous admissions Referred to our consult from 07/16 and last progress from 07/22. Hyperextended his L knee yesterday so it aches today Has some constipation issues but getting ready to have a BM Re-admitted with c/o severe headache, neck and back pain - better Some sinus congestion Has back and leg pain - that is better with ambulation Whitten in place Off chemo past 2 weeks or so Denies confusion, FC/N/V/rash Denies issues with PICC line ROS ROS o/w neg Vital Sign Vital Signs Vital Signs Date Time Temp Pulse Resp B/P (MAP) Pulse Ox O2 Delivery O2 Flow Rate FiO2 07/29/18 03:00 98.7 79 16 119/79 (92) 97 Room Air 98.7 Physical Exam PHYSICAL EXAM GENERAL: Alert, relaxed appearance HENT: PER, Oral cavity pharynx pink and moist NECK: Supple, no rigidity LUNGS: Clear CV: S1 and S1 ABD: Obese, soft NT : whitten EXT: No gross edema or cyanosis. Left knee without swelling/erythema or warmth. a little tight posterior Moves ext SKIN; warm without rash RUE-PICC (07/22) clean Labs Lab Laboratory Tests Test 07/29/18 06:00 White Blood Count 4.5 x10^3/uL (4.0-11.0) Red Blood Count 2.81 x10^6/uL (4.30-5.70) Hemoglobin 9.9 g/dL (13.0-17.5) Hematocrit 28.4 % (39.0-53.0) Mean Corpuscular Volume 101 fL (79-100) Mean Corpuscular Hemoglobin 35 pg (25-35) Mean Corpuscular Hemoglobin Concent 35 g/dL (31-37) Red Cell Distribution Width 18.8 % (11.5-14.5) Platelet Count 182 x10^3/uL (140-400) Neutrophils (%) (Auto) 56 % (31-73) Lymphocytes (%) (Auto) 31 % (24-48) Monocytes (%) (Auto) 10 % (0-9) Eosinophils (%) (Auto) 2 % (0-3) Basophils (%) (Auto) 1 % (0-3) Neutrophils # (Auto) 2.5 x10^3uL (1.8-7.7) Lymphocytes # (Auto) 1.4 x10^3/uL (1.0-4.8) Monocytes # (Auto) 0.5 x10^3/uL (0.0-1.1) Eosinophils # (Auto) 0.1 x10^3/uL (0.0-0.7) Basophils # (Auto) 0.1 x10^3/uL (0.0-0.2) Sodium Level 145 mmol/L (136-145) Potassium Level 4.2 mmol/L (3.5-5.1) Chloride Level 108 mmol/L (98-107) Carbon Dioxide Level 29 mmol/L (21-32) Anion Gap 8 (6-14) Blood Urea Nitrogen 8 mg/dL (8-26) Creatinine 0.6 mg/dL (0.7-1.3) Estimated GFR (Cockcroft-Gault) 138.9 BUN/Creatinine Ratio 13 (6-20) Glucose Level 87 mg/dL (70-99) Calcium Level 7.9 mg/dL (8.5-10.1) Total Bilirubin 0.6 mg/dL (0.2-1.0) Aspartate Amino Transf (AST/SGOT) 24 U/L (15-37) Alanine Aminotransferase (ALT/SGPT) 22 U/L (16-63) Alkaline Phosphatase 108 U/L (46-116) Total Protein 6.5 g/dL (6.4-8.2) Albumin 2.9 g/dL (3.4-5.0) Albumin/Globulin Ratio 0.8 (1.0-1.7) Micro Microbiology 07/25/18 Blood Culture - Preliminary, Resulted NO GROWTH AFTER 1 DAY Objective Assessment Back pain without bowel incontinence (whitten in place for retention) - chronic neuropathy- better with ambulation Sinus congestion Recurrent headache in an immunosuppressed patient - improved Urinary retention h/o cerebrospinal fluid pleocytosis consistent with meningitis, most likely bacterial meningitis. - 07/15. CSF WBC 4068, glucose 45, T protein 318.8. cultures neg - HSV 1 &2 PCR negative; WNV IgM negative - 07/15. CT head neg for abscess/sinus disease Multiple myeloma. Last chemo about 2 weeks ago (Revlimid and Velcade) PCN & amoxicillin causing stomach upset Hyponatremia Plan Plan of Care Optho eval - will have to be outpatient Add [place] spray Constipation per primary continue Merrem through 07/29 ? D/c whitten f/u BC Monitor labs in am/temp Supportive care No need for isolation Cont OT/PT EFRA RESENDIZ MD Jul 29, 2018 07:03
[2018-07-29] MEDS: PANTOPRAZOLE 40 MG TABLET.DR. PO SCH (07:58)
[2018-07-29] MEDS: GABAPENTIN 300 MG CAPSULE. PO SCH ×2 (09:19→20:02)
[2018-07-29] MEDS: MELOXICAM 7.5 MG TABLET PO SCH (09:20)
[2018-07-29] MEDS: CITALOPRAM 20 MG TABLET. PO SCH (09:20)
[2018-07-29] MEDS: DOCUSATE SODIUM 100 MG CAPSULE. PO SCH ×2 (09:20→20:02)
[2018-07-29] MEDS: LOSARTAN POTASSIUM 50 MG TABLET. PO SCH (09:20)
[2018-07-29] MEDS: ALLOPURINOL 300 MG TABLET. PO SCH (09:20)
[2018-07-29] MEDS: ASPIRIN 325 MG TABLET PO SCH (09:20)
[2018-07-29] MEDS: FLUTICASONE 50MCG/NASAL SPRAY 16GM BOTTLE. NS SCH (09:21)
[2018-07-29] MEDS: POLYETHYLENE GLYCOL 3350 17 GM PACKET. PO SCH (09:21)
[2018-07-29 11:00] VITALS: BP 159/90
--- NOTE | 2018-07-29 12:27 | PDOC ---
PROGRESS NOTES Subjective Subjective HPI -f/u of Multiple myeloma diagnosed on 06/25/2018 ROS -has back pain Objective Objective Vital Signs Date Time Temp Pulse Resp B/P (MAP) Pulse Ox O2 Delivery O2 Flow Rate FiO2 07/29/18 11:05 18 Room Air 07/29/18 09:20 87 167/102 07/29/18 08:00 2.0 07/29/18 07:00 98.4 97 98.4 Intake and Output 07/29/18 07:00 Intake Total 1400 ml Output Total 5925 ml Balance -4525 ml Intake Oral 1400 ml Output Urine Total 5925 ml Physical Exam Heart: Normal S1, Normal S2 General: Alert, Oriented X3, No acute distress Lungs: Clear to auscultation Neuro: Normal speech Psych/Mental Status: Mental status NL Assessment Assessment Problems Medical Problems: (1) Hyponatremia Status: Acute (2) Meningitis Status: Acute (3) Vomiting Status: Acute IMPRESSION AND PLAN: 1. Multiple myeloma diagnosed on 06/25/2018. He has an IgA kappa type multiple myeloma. He has received Decadron 40 mg daily for 4 days from 06/25/2018. He was then started on chemotherapy with Velcade, Decadron and Revlimid on 07/06/2018. Revlimid was not available until 07/08/2018 and he took one dose on 07/08/2018 and another dose on 07/13/2018 and another one on 07/14/2018 after which he was diagnosed with meningitis and hence the Revlimid was put on hold. He also received Velcade on 07/06/2018 and cycle number day 1, day #4 was given on 07/09/2018 and day #8 of Velcade was given on 07/13/2018. He has been responding very well. His total proteins have significantly decreased. His total protein level was as high as 13.8 on 06/18/2018 and it is now 6.8. This indicates a good response to treatment. I will continue to monitor closely. Check SPEP. f/u with me next week. 2. Back pain progressively worse. MRI of the lumbar spine 07/26/18 does not reveal any lytic lesions or compression fractures. Comparing with the 07/12/2018 exam, there are multiple new scattered edematous enhancing marrow lesions throughout the visualized spine and iliac bones, evidence of multiple myeloma. There is again transitional anatomy of the lumbar spine. There is again degenerative disc disease greatest at what is considered L3-4 and L4-5. There is again mild to moderate spinal stenosis at what is considered L3-L4. I d/w radiologist, meloma lesions are not contributing to the pain. I d/ w Dr Banks, he also agreed that myeloma is not the etiology of this pain and hence radiation not helpful. 3. Pain in both the legs. Continue to monitor. 4. Meningitis. Continue IV antibiotics per Infectious Diseases, last dose . He denies any headaches at this time. Comment Review of Relevant I have reviewed the following items cristina (where applicable) has been applied. Labs Laboratory Tests Test 07/29/18 06:00 White Blood Count 4.5 x10^3/uL (4.0-11.0) Red Blood Count 2.81 x10^6/uL (4.30-5.70) Hemoglobin 9.9 g/dL (13.0-17.5) Hematocrit 28.4 % (39.0-53.0) Mean Corpuscular Volume 101 fL (79-100) Mean Corpuscular Hemoglobin 35 pg (25-35) Mean Corpuscular Hemoglobin Concent 35 g/dL (31-37) Red Cell Distribution Width 18.8 % (11.5-14.5) Platelet Count 182 x10^3/uL (140-400) Neutrophils (%) (Auto) 56 % (31-73) Lymphocytes (%) (Auto) 31 % (24-48) Monocytes (%) (Auto) 10 % (0-9) Eosinophils (%) (Auto) 2 % (0-3) Basophils (%) (Auto) 1 % (0-3) Neutrophils # (Auto) 2.5 x10^3uL (1.8-7.7) Lymphocytes # (Auto) 1.4 x10^3/uL (1.0-4.8) Monocytes # (Auto) 0.5 x10^3/uL (0.0-1.1) Eosinophils # (Auto) 0.1 x10^3/uL (0.0-0.7) Basophils # (Auto) 0.1 x10^3/uL (0.0-0.2) Sodium Level 145 mmol/L (136-145) Potassium Level 4.2 mmol/L (3.5-5.1) Chloride Level 108 mmol/L (98-107) Carbon Dioxide Level 29 mmol/L (21-32) Anion Gap 8 (6-14) Blood Urea Nitrogen 8 mg/dL (8-26) Creatinine 0.6 mg/dL (0.7-1.3) Estimated GFR (Cockcroft-Gault) 138.9 BUN/Creatinine Ratio 13 (6-20) Glucose Level 87 mg/dL (70-99) Calcium Level 7.9 mg/dL (8.5-10.1) Total Bilirubin 0.6 mg/dL (0.2-1.0) Aspartate Amino Transf (AST/SGOT) 24 U/L (15-37) Alanine Aminotransferase (ALT/SGPT) 22 U/L (16-63) Alkaline Phosphatase 108 U/L (46-116) Total Protein 6.5 g/dL (6.4-8.2) Albumin 2.9 g/dL (3.4-5.0) Albumin/Globulin Ratio 0.8 (1.0-1.7) Laboratory Tests Test 07/29/18 06:00 White Blood Count 4.5 x10^3/uL (4.0-11.0) Red Blood Count 2.81 x10^6/uL (4.30-5.70) Hemoglobin 9.9 g/dL (13.0-17.5) Hematocrit 28.4 % (39.0-53.0) Mean Corpuscular Volume 101 fL (79-100) Mean Corpuscular Hemoglobin 35 pg (25-35) Mean Corpuscular Hemoglobin Concent 35 g/dL (31-37) Red Cell Distribution Width 18.8 % (11.5-14.5) Platelet Count 182 x10^3/uL (140-400) Neutrophils (%) (Auto) 56 % (31-73) Lymphocytes (%) (Auto) 31 % (24-48) Monocytes (%) (Auto) 10 % (0-9) Eosinophils (%) (Auto) 2 % (0-3) Basophils (%) (Auto) 1 % (0-3) Neutrophils # (Auto) 2.5 x10^3uL (1.8-7.7) Lymphocytes # (Auto) 1.4 x10^3/uL (1.0-4.8) Monocytes # (Auto) 0.5 x10^3/uL (0.0-1.1) Eosinophils # (Auto) 0.1 x10^3/uL (0.0-0.7) Basophils # (Auto) 0.1 x10^3/uL (0.0-0.2) Sodium Level 145 mmol/L (136-145) Potassium Level 4.2 mmol/L (3.5-5.1) Chloride Level 108 mmol/L (98-107) Carbon Dioxide Level 29 mmol/L (21-32) Anion Gap 8 (6-14) Blood Urea Nitrogen 8 mg/dL (8-26) Creatinine 0.6 mg/dL (0.7-1.3) Estimated GFR (Cockcroft-Gault) 138.9 BUN/Creatinine Ratio 13 (6-20) Glucose Level 87 mg/dL (70-99) Calcium Level 7.9 mg/dL (8.5-10.1) Total Bilirubin 0.6 mg/dL (0.2-1.0) Aspartate Amino Transf (AST/SGOT) 24 U/L (15-37) Alanine Aminotransferase (ALT/SGPT) 22 U/L (16-63) Alkaline Phosphatase 108 U/L (46-116) Total Protein 6.5 g/dL (6.4-8.2) Albumin 2.9 g/dL (3.4-5.0) Albumin/Globulin Ratio 0.8 (1.0-1.7) Microbiology 07/25/18 Blood Culture - Preliminary, Resulted NO GROWTH AFTER 4 DAYS Medications Current Medications Sodium Chloride 1,000 ml @ 1,000 mls/hr 1X ONCE IV Last administered on 07/25at 07:59; Start 07/25/18 at 07:45; Stop 07/25/18 at 08:44; Status DC Hydromorphone HCl (Dilaudid) 1 mg 1X ONCE IV Last administered on 07/25/18at 07:55; Start 07/25/18 at 07:45; Stop 07/25/18 at 07:46; Status DC Ondansetron HCl (Zofran) 4 mg 1X ONCE IV Last administered on 07/25/18at 07:52 ; Start 07/25/18 at 07:45; Stop 07/25/18 at 07:46; Status DC Hydromorphone HCl (Dilaudid) 0.5 mg 1X ONCE IV Last administered on at 10:17; Start 07/25/18 at 10:15; Stop 07/25/18 at 10:16; Status DC Ondansetron HCl (Zofran) 4 mg PRN Q8HRS PRN IV NAUSEA/VOMITING; Start at 10:15; Stop 07/25/18 at 11:37; Status DC Morphine Sulfate (Morphine Sulfate) 4 mg PRN Q2HR PRN IV PAIN Last administered on 07/26/18at 07:29; Start 07/25/18 at 10:15; Stop 07/26/18 at 09 :02; Status DC Sodium Chloride 1,000 ml @ 125 mls/hr Q8H IV Last administered on 07/25/18at 10:08; Start 07/25/18 at 10:08; Stop 07/26/18 at 10:07; Status DC Ondansetron HCl (Zofran) 4 mg PRN Q6HRS PRN IV NAUSEA/VOMITING Last administered on 07/27/18at 01:08; Start 07/25/18 at 11:45 Acetaminophen (Tylenol) 500 mg PRN Q6HRS PRN PO MILD PAIN / TEMP; Start at 11:45 Acetaminophen/ Codeine Phosphate (Tylenol #3) 1 tab PRN Q6HRS PRN PO MODERATE PAIN; Start 07/25/18 at 11:45 Ibuprofen (Motrin) 400 mg PRN Q6HRS PRN PO INFLAMMATION; Start 07/25/18 at 11: 45 Potassium Chloride (Klor-Con) 40 meq 1X ONCE PO Last administered on at 11:45; Start 07/25/18 at 11:45; Stop 07/25/18 at 11:46; Status DC Sodium Chloride 1,000 ml @ 100 mls/hr Q10H IV Last administered on 07/29/18at 01:59; Start 07/25/18 at 11:45 Diphenhydramine HCl (Benadryl) 25 mg PRN QHS PRN PO INSOMNIA Last administered on 07/28/18at 21:51; Start 07/25/18 at 11:45 Lidocaine (Lidoderm) 1 patch DAILY PRN TD back pain Last administered on 18:21; Start 07/25/18 at 11:45 Allopurinol (Zyloprim) 300 mg DAILY PO Last administered on 07/29/18 09:20; Start 07/26/18 at 09:00 Aspirin (Debbie Aspirin) 325 mg DAILY PO Last administered on 07/29/18 09:20; Start 07/26/18 at 09:00 Dexamethasone (Decadron) 40 mg WEEKLY PO ; Start 08/01/18 at 09:00; Status UNV Acetaminophen/ Hydrocodone Bitart (Lortab 5/325) 1 tab PRN Q6HRS PRN PO SEVERE PAIN, 2nd CHOICE Last administered on 07/26/18 03:08; Start 07/25/18 at 11:45 Tamsulosin HCl (Flomax) 0.4 mg QHS PO Last administered on 07/28/18at 21:51; Start 07/25/18 at 21:00 Citalopram Hydrobromide (CeleXA) 20 mg DAILY PO Last administered on 09:20; Start 07/26/18 at 09:00 Fluticasone Propionate (Flonase) 2 spray DAILY NS Last administered on 09:21; Start 07/26/18 at 09:00 Gabapentin (Neurontin) 300 mg BID PO Last administered on 07/29/18 09:19; Start 07/25/18 at 21:00 Losartan Potassium (Cozaar) 100 mg DAILY PO Last administered on 07/29/18 09: 20; Start 07/26/18 at 09:00 Meloxicam (Mobic) 7.5 mg DAILY PO Last administered on 07/29/18 09:20; Start 07/26/18 at 09:00 Pantoprazole Sodium (Protonix) 40 mg DAILYAC PO Last administered on 07:58; Start 07/26/18 at 07:30 Meropenem 1 gm/ Sodium Chloride 100 ml @ 200 mls/hr Q8HRS IV Last administered on 07/29/18 05:56; Start 07/25/18 at 14:00 Trazodone HCl (Desyrel) 100 mg PRN QHS PRN PO INSOMNIA 1ST CHOICE Last administered on 10/17/18at 21:51; Start 07/25/18 at 21:15 Morphine Sulfate (Morphine Sulfate) 10 mg PRN Q2HR PRN IV PAIN SEVERE Last administered on 07/26/18at 09:35; Start 07/26/18 at 09:15; Stop 07/26/18 at 15 :50; Status DC Oxycodone HCl (Roxicodone) 10 mg PRN Q6HRS PRN PO PAIN SEVERE, 1sT CHOICE Last administered on 07/29/18at 07:59; Start 07/26/18 at 09:15 Gadobutrol (Gadavist) 10 mmol 1X ONCE IV Last administered on 07/26/18at 14:57 ; Start 07/26/18 at 14:30; Stop 07/26/18 at 14:31; Status DC Morphine Sulfate (Morphine Sulfate) 10 mg PRN Q2HR PRN IV PAIN SEVERE Last administered on 07/29/18at 10:35; Start 07/26/18 at 16:00 Polyethylene Glycol (miraLAX PACKET) 17 gm DAILY PO Last administered on at 09:21; Start 07/27/18 at 09:00 Docusate Sodium (Colace) 100 mg BID PO Last administered on 07/29/18at 09:20; Start 07/27/18 at 09:00 Sodium Chloride (Saline Mist Nasal) 1 rony PRN Q1HR PRN NS NASAL CONGESTION; Start 07/28/18 at 08:00 Lactobacillus Rhamnosus (Culturelle) 1 cap BID PO ; Start 07/28/18 at 21:00; Status Cancel Active Scripts Active Levaquin (Levofloxacin) 500 Mg Tablet 500 Mg PO DAILY06 Flomax (Tamsulosin Hcl) 0.4 Mg Cap.er.24h 0.4 Mg PO QHS Reported Revlimid (Lenalidomide) 25 Mg Capsule 25 Mg PO Gabapentin 300 Mg Capsule 300 Mg PO BID Sulfamethoxazole-Tmp Ds Tablet (Sulfamethoxazole/Trimethoprim) 1 Each Tablet 1 Tab PO BID Dexamethasone 4 Mg Tablet 40 Mg PO WEEKLY Acyclovir 800 Mg Tablet 1 Tab PO BID Aspirin 325 Mg Tablet 1 Tab PO DAILY Hyzaar 100-25 Tablet (Losartan/Hydrochlorothiazide) 1 Each Tablet 1 Each PO DAILY Hydrocodone-Apap 5-325 (Hydrocodone Bit/Acetaminophen) 1 Each Tablet 1 Tab PO PRN Q6HRS PRN Escitalopram Oxalate 10 Mg Tablet 10 Mg PO DAILY Flonase Allergy Relief (Fluticasone Propionate) 9.9 Ml [place].susp 2 Sprays NS DAILY Meloxicam 7.5 Mg Tablet 7.5 Mg PO DAILY Prilosec Otc (Omeprazole Magnesium) 20 Mg Tablet.dr 40 Mg PO DAILY Allopurinol 300 Mg Tablet 300 Mg PO DAILY Vitals/I & O Vital Sign - Last 24 Hours 07/28/18 07/28/18 07/28/18 07/28/18 15:00 19:00 20:05 23:00 Temp 97.9 97.6 98.4 97.9 97.6 98.4 Pulse 71 81 76 Resp 20 16 16 B/P (MAP) 146/82 (103) 146/73 (97) 141/81 (101) Pulse Ox 98 98 97 O2 Delivery Room Air Room Air Room Air Room Air 07/29/18 07/29/18 07/29/18 07/29/18 03:00 07:00 07:59 08:00 Temp 98.7 98.4 98.7 98.4 Pulse 79 87 Resp 18 18 B/P (MAP) 119/79 (92) 167/102 (123) Pulse Ox 97 97 O2 Delivery Room Air Room Air Room Air Room Air 07/29/18 07/29/18 07/29/18 07/29/18 08:00 08:59 09:20 10:35 Pulse 87 Resp 17 B/P (MAP) 167/102 O2 Delivery Room Air Room Air Room Air O2 Flow Rate 2.0 07/29/18 11:05 Resp 18 O2 Delivery Room Air Intake and Output 07/28/18 07/28/18 07/29/18 15:00 23:00 07:00 Intake Total 300 ml 1100 ml Output Total 1150 ml 2975 ml 1800 ml Balance -850 ml -1875 ml -1800 ml PHILLIP FUNEZ MD Jul 29, 2018 12:26
--- NOTE | 2018-07-29 14:30 | PDOC ---
PROGRESS NOTES Chief Complaint Chief Complaint Headache, fever in an immunosuppressed w. recent meningitis sepsis Multiple myeloma, on chemotherapy. Encephalopathy, acute on admit PCN & amoxicillin causing stomach upset , Hypertension. Hyperlipidemia. Gastroesophageal reflux disease. thrombocytopenia,mild Hyponatremia Hypokalemia- History of Present Illness History of Present Illness walking [place] str improved no fever will take whitten out today, try to void may be able to DC soon Vitals Vitals Vital Signs Date Time Temp Pulse Resp B/P (MAP) Pulse Ox O2 Delivery O2 Flow Rate FiO2 07/29/18 13:29 16 07/29/18 12:59 Room Air 07/29/18 09:20 87 167/102 07/29/18 08:00 2.0 07/29/18 07:00 98.4 97 98.4 Physical Exam Physical Exam GENERAL: Alert, relaxed appearance HENT: PER, Oral cavity pharynx pink and moist NECK: Supple, no rigidity LUNGS: Clear CV: S1 and S1 ABD: Obese, soft NT : whitten EXT: No gross edema or cyanosis. Left knee without swelling/erythema or warmth. a little tight posterior Moves ext SKIN; warm without rash RUE-PICC (07/22) clean General: Alert, Oriented X3, No acute distress Heart: Normal S1, Normal S2 Lungs: Clear Abdomen: Normal bowel sounds Extremities: No clubbing, No cyanosis, No edema, Normal pulses, No tenderness/ swelling Skin: No rashes, No breakdown, No significant lesion Labs LABS Laboratory Tests Test 07/29/18 06:00 White Blood Count 4.5 x10^3/uL (4.0-11.0) Red Blood Count 2.81 x10^6/uL (4.30-5.70) Hemoglobin 9.9 g/dL (13.0-17.5) Hematocrit 28.4 % (39.0-53.0) Mean Corpuscular Volume 101 fL (79-100) Mean Corpuscular Hemoglobin 35 pg (25-35) Mean Corpuscular Hemoglobin Concent 35 g/dL (31-37) Red Cell Distribution Width 18.8 % (11.5-14.5) Platelet Count 182 x10^3/uL (140-400) Neutrophils (%) (Auto) 56 % (31-73) Lymphocytes (%) (Auto) 31 % (24-48) Monocytes (%) (Auto) 10 % (0-9) Eosinophils (%) (Auto) 2 % (0-3) Basophils (%) (Auto) 1 % (0-3) Neutrophils # (Auto) 2.5 x10^3uL (1.8-7.7) Lymphocytes # (Auto) 1.4 x10^3/uL (1.0-4.8) Monocytes # (Auto) 0.5 x10^3/uL (0.0-1.1) Eosinophils # (Auto) 0.1 x10^3/uL (0.0-0.7) Basophils # (Auto) 0.1 x10^3/uL (0.0-0.2) Sodium Level 145 mmol/L (136-145) Potassium Level 4.2 mmol/L (3.5-5.1) Chloride Level 108 mmol/L (98-107) Carbon Dioxide Level 29 mmol/L (21-32) Anion Gap 8 (6-14) Blood Urea Nitrogen 8 mg/dL (8-26) Creatinine 0.6 mg/dL (0.7-1.3) Estimated GFR (Cockcroft-Gault) 138.9 BUN/Creatinine Ratio 13 (6-20) Glucose Level 87 mg/dL (70-99) Calcium Level 7.9 mg/dL (8.5-10.1) Total Bilirubin 0.6 mg/dL (0.2-1.0) Aspartate Amino Transf (AST/SGOT) 24 U/L (15-37) Alanine Aminotransferase (ALT/SGPT) 22 U/L (16-63) Alkaline Phosphatase 108 U/L (46-116) Total Protein 6.5 g/dL (6.4-8.2) Albumin 2.9 g/dL (3.4-5.0) Albumin/Globulin Ratio 0.8 (1.0-1.7) Assessment and Plan Assessmemt and Plan Problems Medical Problems: (1) Hyponatremia Status: Acute (2) Meningitis Status: Acute (3) Vomiting Status: Acute Comment Review of Relevant I have reviewed the following items cristina (where applicable) has been applied. Labs Laboratory Tests Test 07/29/18 06:00 White Blood Count 4.5 x10^3/uL (4.0-11.0) Red Blood Count 2.81 x10^6/uL (4.30-5.70) Hemoglobin 9.9 g/dL (13.0-17.5) Hematocrit 28.4 % (39.0-53.0) Mean Corpuscular Volume 101 fL (79-100) Mean Corpuscular Hemoglobin 35 pg (25-35) Mean Corpuscular Hemoglobin Concent 35 g/dL (31-37) Red Cell Distribution Width 18.8 % (11.5-14.5) Platelet Count 182 x10^3/uL (140-400) Neutrophils (%) (Auto) 56 % (31-73) Lymphocytes (%) (Auto) 31 % (24-48) Monocytes (%) (Auto) 10 % (0-9) Eosinophils (%) (Auto) 2 % (0-3) Basophils (%) (Auto) 1 % (0-3) Neutrophils # (Auto) 2.5 x10^3uL (1.8-7.7) Lymphocytes # (Auto) 1.4 x10^3/uL (1.0-4.8) Monocytes # (Auto) 0.5 x10^3/uL (0.0-1.1) Eosinophils # (Auto) 0.1 x10^3/uL (0.0-0.7) Basophils # (Auto) 0.1 x10^3/uL (0.0-0.2) Sodium Level 145 mmol/L (136-145) Potassium Level 4.2 mmol/L (3.5-5.1) Chloride Level 108 mmol/L (98-107) Carbon Dioxide Level 29 mmol/L (21-32) Anion Gap 8 (6-14) Blood Urea Nitrogen 8 mg/dL (8-26) Creatinine 0.6 mg/dL (0.7-1.3) Estimated GFR (Cockcroft-Gault) 138.9 BUN/Creatinine Ratio 13 (6-20) Glucose Level 87 mg/dL (70-99) Calcium Level 7.9 mg/dL (8.5-10.1) Total Bilirubin 0.6 mg/dL (0.2-1.0) Aspartate Amino Transf (AST/SGOT) 24 U/L (15-37) Alanine Aminotransferase (ALT/SGPT) 22 U/L (16-63) Alkaline Phosphatase 108 U/L (46-116) Total Protein 6.5 g/dL (6.4-8.2) Albumin 2.9 g/dL (3.4-5.0) Albumin/Globulin Ratio 0.8 (1.0-1.7) Laboratory Tests Test 07/29/18 06:00 White Blood Count 4.5 x10^3/uL (4.0-11.0) Red Blood Count 2.81 x10^6/uL (4.30-5.70) Hemoglobin 9.9 g/dL (13.0-17.5) Hematocrit 28.4 % (39.0-53.0) Mean Corpuscular Volume 101 fL (79-100) Mean Corpuscular Hemoglobin 35 pg (25-35) Mean Corpuscular Hemoglobin Concent 35 g/dL (31-37) Red Cell Distribution Width 18.8 % (11.5-14.5) Platelet Count 182 x10^3/uL (140-400) Neutrophils (%) (Auto) 56 % (31-73) Lymphocytes (%) (Auto) 31 % (24-48) Monocytes (%) (Auto) 10 % (0-9) Eosinophils (%) (Auto) 2 % (0-3) Basophils (%) (Auto) 1 % (0-3) Neutrophils # (Auto) 2.5 x10^3uL (1.8-7.7) Lymphocytes # (Auto) 1.4 x10^3/uL (1.0-4.8) Monocytes # (Auto) 0.5 x10^3/uL (0.0-1.1) Eosinophils # (Auto) 0.1 x10^3/uL (0.0-0.7) Basophils # (Auto) 0.1 x10^3/uL (0.0-0.2) Sodium Level 145 mmol/L (136-145) Potassium Level 4.2 mmol/L (3.5-5.1) Chloride Level 108 mmol/L (98-107) Carbon Dioxide Level 29 mmol/L (21-32) Anion Gap 8 (6-14) Blood Urea Nitrogen 8 mg/dL (8-26) Creatinine 0.6 mg/dL (0.7-1.3) Estimated GFR (Cockcroft-Gault) 138.9 BUN/Creatinine Ratio 13 (6-20) Glucose Level 87 mg/dL (70-99) Calcium Level 7.9 mg/dL (8.5-10.1) Total Bilirubin 0.6 mg/dL (0.2-1.0) Aspartate Amino Transf (AST/SGOT) 24 U/L (15-37) Alanine Aminotransferase (ALT/SGPT) 22 U/L (16-63) Alkaline Phosphatase 108 U/L (46-116) Total Protein 6.5 g/dL (6.4-8.2) Albumin 2.9 g/dL (3.4-5.0) Albumin/Globulin Ratio 0.8 (1.0-1.7) Microbiology 07/25/18 Blood Culture - Preliminary, Resulted NO GROWTH AFTER 4 DAYS Medications Current Medications Sodium Chloride 1,000 ml @ 1,000 mls/hr 1X ONCE IV Last administered on 07/25at 07:59; Start 07/25/18 at 07:45; Stop 07/25/18 at 08:44; Status DC Hydromorphone HCl (Dilaudid) 1 mg 1X ONCE IV Last administered on 07/25/18at 07:55; Start 07/25/18 at 07:45; Stop 07/25/18 at 07:46; Status DC Ondansetron HCl (Zofran) 4 mg 1X ONCE IV Last administered on 07/25/18at 07:52 ; Start 07/25/18 at 07:45; Stop 07/25/18 at 07:46; Status DC Hydromorphone HCl (Dilaudid) 0.5 mg 1X ONCE IV Last administered on at 10:17; Start 07/25/18 at 10:15; Stop 07/25/18 at 10:16; Status DC Ondansetron HCl (Zofran) 4 mg PRN Q8HRS PRN IV NAUSEA/VOMITING; Start at 10:15; Stop 07/25/18 at 11:37; Status DC Morphine Sulfate (Morphine Sulfate) 4 mg PRN Q2HR PRN IV PAIN Last administered on 07/26/18at 07:29; Start 07/25/18 at 10:15; Stop 07/26/18 at 09 :02; Status DC Sodium Chloride 1,000 ml @ 125 mls/hr Q8H IV Last administered on 07/25/18at 10:08; Start 07/25/18 at 10:08; Stop 07/26/18 at 10:07; Status DC Ondansetron HCl (Zofran) 4 mg PRN Q6HRS PRN IV NAUSEA/VOMITING Last administered on 07/27/18at 01:08; Start 07/25/18 at 11:45 Acetaminophen (Tylenol) 500 mg PRN Q6HRS PRN PO MILD PAIN / TEMP; Start at 11:45 Acetaminophen/ Codeine Phosphate (Tylenol #3) 1 tab PRN Q6HRS PRN PO MODERATE PAIN; Start 07/25/18 at 11:45 Ibuprofen (Motrin) 400 mg PRN Q6HRS PRN PO INFLAMMATION; Start 07/25/18 at 11: 45 Potassium Chloride (Klor-Con) 40 meq 1X ONCE PO Last administered on at 11:45; Start 07/25/18 at 11:45; Stop 07/25/18 at 11:46; Status DC Sodium Chloride 1,000 ml @ 100 mls/hr Q10H IV Last administered on 07/29/18at 14:17; Start 07/25/18 at 11:45 Diphenhydramine HCl (Benadryl) 25 mg PRN QHS PRN PO INSOMNIA Last administered on 07/28/18at 21:51; Start 07/25/18 at 11:45 Lidocaine (Lidoderm) 1 patch DAILY PRN TD back pain Last administered on at 18:21; Start 07/25/18 at 11:45 Allopurinol (Zyloprim) 300 mg DAILY PO Last administered on 07/29/18at 09:20; Start 07/26/18 at 09:00 Aspirin (Debbie Aspirin) 325 mg DAILY PO Last administered on 07/29/18at 09:20; Start 07/26/18 at 09:00 Dexamethasone (Decadron) 40 mg WEEKLY PO ; Start 08/01/18 at 09:00; Status UNV Acetaminophen/ Hydrocodone Bitart (Lortab 5/325) 1 tab PRN Q6HRS PRN PO SEVERE PAIN, 2nd CHOICE Last administered on 07/26/18at 03:08; Start 07/25/18 at 11:45 Tamsulosin HCl (Flomax) 0.4 mg QHS PO Last administered on 07/28/18 21:51; Start 07/25/18 at 21:00 Citalopram Hydrobromide (CeleXA) 20 mg DAILY PO Last administered on 09:20; Start 07/26/18 at 09:00 Fluticasone Propionate (Flonase) 2 spray DAILY NS Last administered on 09:21; Start 07/26/18 at 09:00 Gabapentin (Neurontin) 300 mg BID PO Last administered on 07/29/18 09:19; Start 07/25/18 at 21:00 Losartan Potassium (Cozaar) 100 mg DAILY PO Last administered on 07/29/18 09: 20; Start 07/26/18 at 09:00 Meloxicam (Mobic) 7.5 mg DAILY PO Last administered on 07/29/18 09:20; Start 07/26/18 at 09:00 Pantoprazole Sodium (Protonix) 40 mg DAILYAC PO Last administered on 07:58; Start 07/26/18 at 07:30 Meropenem 1 gm/ Sodium Chloride 100 ml @ 200 mls/hr Q8HRS IV Last administered on 07/29/18 14:16; Start 07/25/18 at 14:00 Trazodone HCl (Desyrel) 100 mg PRN QHS PRN PO INSOMNIA 1ST CHOICE Last administered on 07/28/18 21:51; Start 07/25/18 at 21:15 Morphine Sulfate (Morphine Sulfate) 10 mg PRN Q2HR PRN IV PAIN SEVERE Last administered on 07/26/18at 09:35; Start 07/26/18 at 09:15; Stop 07/26/18 at 15 :50; Status DC Oxycodone HCl (Roxicodone) 10 mg PRN Q6HRS PRN PO PAIN SEVERE, 1sT CHOICE Last administered on 07/29/18at 07:59; Start 07/26/18 at 09:15 Gadobutrol (Gadavist) 10 mmol 1X ONCE IV Last administered on 07/26/18 14:57 ; Start 07/26/18 at 14:30; Stop 07/26/18 at 14:31; Status DC Morphine Sulfate (Morphine Sulfate) 10 mg PRN Q2HR PRN IV PAIN SEVERE Last administered on 07/29/18at 12:59; Start 07/26/18 at 16:00 Polyethylene Glycol (miraLAX PACKET) 17 gm DAILY PO Last administered on at 09:21; Start 07/27/18 at 09:00 Docusate Sodium (Colace) 100 mg BID PO Last administered on 07/29/18at 09:20; Start 07/27/18 at 09:00 Sodium Chloride (Saline Mist Nasal) 1 rony PRN Q1HR PRN NS NASAL CONGESTION; Start 07/28/18 at 08:00 Lactobacillus Rhamnosus (Culturelle) 1 cap BID PO ; Start 07/28/18 at 21:00; Status Cancel Active Scripts Active Levaquin (Levofloxacin) 500 Mg Tablet 500 Mg PO DAILY06 Flomax (Tamsulosin Hcl) 0.4 Mg Cap.er.24h 0.4 Mg PO QHS Reported Revlimid (Lenalidomide) 25 Mg Capsule 25 Mg PO Gabapentin 300 Mg Capsule 300 Mg PO BID Sulfamethoxazole-Tmp Ds Tablet (Sulfamethoxazole/Trimethoprim) 1 Each Tablet 1 Tab PO BID Dexamethasone 4 Mg Tablet 40 Mg PO WEEKLY Acyclovir 800 Mg Tablet 1 Tab PO BID Aspirin 325 Mg Tablet 1 Tab PO DAILY Hyzaar 100-25 Tablet (Losartan/Hydrochlorothiazide) 1 Each Tablet 1 Each PO DAILY Hydrocodone-Apap 5-325 (Hydrocodone Bit/Acetaminophen) 1 Each Tablet 1 Tab PO PRN Q6HRS PRN Escitalopram Oxalate 10 Mg Tablet 10 Mg PO DAILY Flonase Allergy Relief (Fluticasone Propionate) 9.9 Ml [place].susp 2 Sprays NS DAILY Meloxicam 7.5 Mg Tablet 7.5 Mg PO DAILY Prilosec Otc (Omeprazole Magnesium) 20 Mg Tablet.dr 40 Mg PO DAILY Allopurinol 300 Mg Tablet 300 Mg PO DAILY Vitals/I & O Vital Sign - Last 24 Hours 07/28/18 07/28/18 07/28/18 07/28/18 15:00 19:00 20:05 23:00 Temp 97.9 97.6 98.4 97.9 97.6 98.4 Pulse 71 81 76 Resp 20 16 16 B/P (MAP) 146/82 (103) 146/73 (97) 141/81 (101) Pulse Ox 98 98 97 O2 Delivery Room Air Room Air Room Air Room Air 07/29/18 07/29/18 07/29/18 07/29/18 03:00 07:00 07:59 08:00 Temp 98.7 98.4 98.7 98.4 Pulse 79 87 Resp 16 18 B/P (MAP) 119/79 (92) 167/102 (123) Pulse Ox 97 97 O2 Delivery Room Air Room Air Room Air Room Air 07/29/18 07/29/18 07/29/18 07/29/18 08:00 08:59 09:20 10:35 Pulse 87 Resp 18 17 B/P (MAP) 167/102 O2 Delivery Room Air Room Air Room Air O2 Flow Rate 2.0 07/29/18 07/29/18 07/29/18 11:05 12:59 13:29 Resp 18 16 O2 Delivery Room Air Room Air Intake and Output 07/28/18 07/28/18 07/29/18 15:00 23:00 07:00 Intake Total 300 ml 1100 ml Output Total 1150 ml 2975 ml 1800 ml Balance -850 ml -1875 ml -1800 ml ANAYELI FLOWERS MD Jul 29, 2018 14:30
[2018-07-29 15:00] VITALS: BP 162/86
[2018-07-29 15:30] LABS: KAPPA FREE 121.1 mg/L (3.3-19.4); KAPPA LAMBDA RATIO 15.93 (0.26-1.65); LAMBDA FREE 7.6 mg/L (5.7-26.3)
[2018-07-29 19:00] VITALS: BP 182/86
[2018-07-29] MEDS: TAMSULOSIN 0.4 MG CAP.ER.24H. PO SCH (20:02)
[2018-07-29] MEDS: traZODone 100 MG TABLET. PO PRN (22:06)
[2018-07-29] MEDS: diphenhydrAMINE HCL 25 MG CAPSULE PO PRN (22:06)
[2018-07-29 23:00] VITALS: BP 130/56
[2018-07-30 03:00] VITALS: BP 148/78
[2018-07-30] MEDS: oxyCODONE IR 5 MG TABLET PO PRN (03:01)
[2018-07-30] MEDS: IV NORMAL SALINE 1000ML BAG 1,000 ML IV SCH (05:35)
[2018-07-30] MEDS: MEROPENEM 1 GM in IV NORMAL SALINE 100ML 100 ML IV SCH (05:36)
[2018-07-30] MEDS: MORPHINE SULFATE 10 MG/ML VIAL. IV PRN (06:58)
[2018-07-30 07:00] VITALS: BP 154/88
[2018-07-30] MEDS: FLUTICASONE 50MCG/NASAL SPRAY 16GM BOTTLE. NS SCH (08:10)
[2018-07-30] MEDS: POLYETHYLENE GLYCOL 3350 17 GM PACKET. PO SCH (08:10)
[2018-07-30] MEDS: DOCUSATE SODIUM 100 MG CAPSULE. PO SCH (08:11)
[2018-07-30] MEDS: ALLOPURINOL 300 MG TABLET. PO SCH (08:11)
[2018-07-30] MEDS: PANTOPRAZOLE 40 MG TABLET.DR. PO SCH (08:11)
[2018-07-30] MEDS: GABAPENTIN 300 MG CAPSULE. PO SCH (08:11)
[2018-07-30] MEDS: ASPIRIN 325 MG TABLET PO SCH (08:11)
[2018-07-30] MEDS: CITALOPRAM 20 MG TABLET. PO SCH (08:11)
[2018-07-30] MEDS: MELOXICAM 7.5 MG TABLET PO SCH (08:12)
[2018-07-30 08:13] VITALS: BP 148/78
[2018-07-30] MEDS: LOSARTAN POTASSIUM 50 MG TABLET. PO SCH (08:13)
--- NOTE | 2018-07-30 08:52 | PDOC ---
PROGRESS NOTES Subjective Subjective HPI - f/u of Multiple myeloma diagnosed on 06/25/2018 ROS - no headaches, has back pain Objective Objective Vital Signs Date Time Temp Pulse Resp B/P (MAP) Pulse Ox O2 Delivery O2 Flow Rate FiO2 07/30/18 08:13 94 148/78 07/30/18 07:28 18 Room Air 07/30/18 07:00 98.8 96 98.8 07/29/18 08:00 2.0 Intake and Output 07/30/18 07:00 Intake Total 3780 ml Output Total 4900 ml Balance -1120 ml Intake Oral 3780 ml Output Urine Total 4900 ml Physical Exam Heart: Normal S1, Normal S2 General: Alert, Oriented X3 Lungs: Clear to auscultation Neuro: Normal speech Psych/Mental Status: Mental status NL Assessment Assessment Problems Medical Problems: (1) Hyponatremia Status: Acute (2) Meningitis Status: Acute (3) Vomiting Status: Acute IMPRESSION AND PLAN: 1. Multiple myeloma diagnosed on 06/25/2018. He has an IgA kappa type multiple myeloma. He has received Decadron 40 mg daily for 4 days from 06/25/2018. He was then started on chemotherapy with Velcade, Decadron and Revlimid on 07/06/2018. Revlimid was not available until 07/08/2018 and he took one dose on 07/08/2018 and another dose on 07/13/2018 and another one on 07/14/2018 after which he was diagnosed with meningitis and hence the Revlimid was put on hold. He also received Velcade on 07/06/2018 and cycle number day 1, day #4 was given on 07/09/2018 and day #8 of Velcade was given on 07/13/2018. He has been responding very well. His total proteins have significantly decreased. His total protein level was as high as 13.8 on 06/18/2018 and it is now 6.8. This indicates a good response to treatment. I will continue to monitor closely. [place] light chains improved from 1252.3 on 06/18/18 to 121.1 on 07/28/18. Check SPEP. f/u with me next week. 2. Back pain progressively worse. MRI of the lumbar spine 07/26/18 does not reveal any lytic lesions or compression fractures. Comparing with the 07/12/2018 exam, there are multiple new scattered edematous enhancing marrow lesions throughout the visualized spine and iliac bones, evidence of multiple myeloma. There is again transitional anatomy of the lumbar spine. There is again degenerative disc disease greatest at what is considered L3-4 and L4-5. There is again mild to moderate spinal stenosis at what is considered L3-L4. I d/w radiologist, myeloma lesions are not contributing to the pain. I d/ w Dr Banks, he also agreed that myeloma is not the etiology of this pain and hence radiation not helpful. 3. Pain in both the legs. Continue to monitor. 4. Meningitis. IV antibiotics per Infectious Diseases. He denies any headaches at this time. Comment Review of Relevant I have reviewed the following items cristina (where applicable) has been applied. Labs Laboratory Tests Test 07/29/18 06:00 White Blood Count 4.5 x10^3/uL (4.0-11.0) Red Blood Count 2.81 x10^6/uL (4.30-5.70) Hemoglobin 9.9 g/dL (13.0-17.5) Hematocrit 28.4 % (39.0-53.0) Mean Corpuscular Volume 101 fL (79-100) Mean Corpuscular Hemoglobin 35 pg (25-35) Mean Corpuscular Hemoglobin Concent 35 g/dL (31-37) Red Cell Distribution Width 18.8 % (11.5-14.5) Platelet Count 182 x10^3/uL (140-400) Neutrophils (%) (Auto) 56 % (31-73) Lymphocytes (%) (Auto) 31 % (24-48) Monocytes (%) (Auto) 10 % (0-9) Eosinophils (%) (Auto) 2 % (0-3) Basophils (%) (Auto) 1 % (0-3) Neutrophils # (Auto) 2.5 x10^3uL (1.8-7.7) Lymphocytes # (Auto) 1.4 x10^3/uL (1.0-4.8) Monocytes # (Auto) 0.5 x10^3/uL (0.0-1.1) Eosinophils # (Auto) 0.1 x10^3/uL (0.0-0.7) Basophils # (Auto) 0.1 x10^3/uL (0.0-0.2) Sodium Level 145 mmol/L (136-145) Potassium Level 4.2 mmol/L (3.5-5.1) Chloride Level 108 mmol/L (98-107) Carbon Dioxide Level 29 mmol/L (21-32) Anion Gap 8 (6-14) Blood Urea Nitrogen 8 mg/dL (8-26) Creatinine 0.6 mg/dL (0.7-1.3) Estimated GFR (Cockcroft-Gault) 138.9 BUN/Creatinine Ratio 13 (6-20) Glucose Level 87 mg/dL (70-99) Calcium Level 7.9 mg/dL (8.5-10.1) Total Bilirubin 0.6 mg/dL (0.2-1.0) Aspartate Amino Transf (AST/SGOT) 24 U/L (15-37) Alanine Aminotransferase (ALT/SGPT) 22 U/L (16-63) Alkaline Phosphatase 108 U/L (46-116) Total Protein 6.5 g/dL (6.4-8.2) Albumin 2.9 g/dL (3.4-5.0) Albumin/Globulin Ratio 0.8 (1.0-1.7) Microbiology 07/25/18 Blood Culture - Final, Complete NO GROWTH AFTER 5 DAYS Medications Current Medications Sodium Chloride 1,000 ml @ 1,000 mls/hr 1X ONCE IV Last administered on 07/25at 07:59; Start 07/25/18 at 07:45; Stop 07/25/18 at 08:44; Status DC Hydromorphone HCl (Dilaudid) 1 mg 1X ONCE IV Last administered on 07/25/18at 07:55; Start 07/25/18 at 07:45; Stop 07/25/18 at 07:46; Status DC Ondansetron HCl (Zofran) 4 mg 1X ONCE IV Last administered on 07/25/18at 07:52 ; Start 07/25/18 at 07:45; Stop 07/25/18 at 07:46; Status DC Hydromorphone HCl (Dilaudid) 0.5 mg 1X ONCE IV Last administered on at 10:17; Start 07/25/18 at 10:15; Stop 07/25/18 at 10:16; Status DC Ondansetron HCl (Zofran) 4 mg PRN Q8HRS PRN IV NAUSEA/VOMITING; Start at 10:15; Stop 07/25/18 at 11:37; Status DC Morphine Sulfate (Morphine Sulfate) 4 mg PRN Q2HR PRN IV PAIN Last administered on 07/26/18at 07:29; Start 07/25/18 at 10:15; Stop 07/26/18 at 09 :02; Status DC Sodium Chloride 1,000 ml @ 125 mls/hr Q8H IV Last administered on 07/25/18at 10:08; Start 07/25/18 at 10:08; Stop 07/26/18 at 10:07; Status DC Ondansetron HCl (Zofran) 4 mg PRN Q6HRS PRN IV NAUSEA/VOMITING Last administered on 07/27/18at 01:08; Start 07/25/18 at 11:45 Acetaminophen (Tylenol) 500 mg PRN Q6HRS PRN PO MILD PAIN / TEMP; Start at 11:45 Acetaminophen/ Codeine Phosphate (Tylenol #3) 1 tab PRN Q6HRS PRN PO MODERATE PAIN; Start 07/25/18 at 11:45 Ibuprofen (Motrin) 400 mg PRN Q6HRS PRN PO INFLAMMATION; Start 07/25/18 at 11: 45 Potassium Chloride (Klor-Con) 40 meq 1X ONCE PO Last administered on at 11:45; Start 07/25/18 at 11:45; Stop 07/25/18 at 11:46; Status DC Sodium Chloride 1,000 ml @ 100 mls/hr Q10H IV Last administered on 07/30/18at 05:35; Start 07/25/18 at 11:45 Diphenhydramine HCl (Benadryl) 25 mg PRN QHS PRN PO INSOMNIA, 2nd CHOICE Last administered on 07/29/18at 22:06; Start 07/25/18 at 11:45 Lidocaine (Lidoderm) 1 patch DAILY PRN TD back pain Last administered on at 18:21; Start 07/25/18 at 11:45 Allopurinol (Zyloprim) 300 mg DAILY PO Last administered on 07/30/18at 08:11; Start 07/26/18 at 09:00 Aspirin (Debbie Aspirin) 325 mg DAILY PO Last administered on 07/30/18 08:11; Start 07/26/18 at 09:00 Dexamethasone (Decadron) 40 mg WEEKLY PO ; Start 08/01/18 at 09:00; Status UNV Acetaminophen/ Hydrocodone Bitart (Lortab 5/325) 1 tab PRN Q6HRS PRN PO SEVERE PAIN, 2nd CHOICE Last administered on 07/26/18at 03:08; Start 07/25/18 at 11:45 Tamsulosin HCl (Flomax) 0.4 mg QHS PO Last administered on 07/29/18at 20:02; Start 07/25/18 at 21:00 Citalopram Hydrobromide (CeleXA) 20 mg DAILY PO Last administered on 08:11; Start 07/26/18 at 09:00 Fluticasone Propionate (Flonase) 2 spray DAILY NS Last administered on at 09:21; Start 07/26/18 at 09:00 Gabapentin (Neurontin) 300 mg BID PO Last administered on 07/30/18at 08:11; Start 07/25/18 at 21:00 Losartan Potassium (Cozaar) 100 mg DAILY PO Last administered on 07/30/18at 08: 13; Start 07/26/18 at 09:00 Meloxicam (Mobic) 7.5 mg DAILY PO Last administered on 07/30/18at 08:12; Start 07/26/18 at 09:00 Pantoprazole Sodium (Protonix) 40 mg DAILYAC PO Last administered on at 08:11; Start 07/26/18 at 07:30 Meropenem 1 gm/ Sodium Chloride 100 ml @ 200 mls/hr Q8HRS IV Last administered on 07/30/18at 05:36; Start 07/25/18 at 14:00 Trazodone HCl (Desyrel) 100 mg PRN QHS PRN PO INSOMNIA 1ST CHOICE Last administered on 07/29/18 22:06; Start 07/25/18 at 21:15 Morphine Sulfate (Morphine Sulfate) 10 mg PRN Q2HR PRN IV PAIN SEVERE Last administered on 07/26/18at 09:35; Start 07/26/18 at 09:15; Stop 07/26/18 at 15 :50; Status DC Oxycodone HCl (Roxicodone) 10 mg PRN Q6HRS PRN PO PAIN SEVERE, 1sT CHOICE Last administered on 07/30/18at 03:01; Start 07/26/18 at 09:15 Gadobutrol (Gadavist) 10 mmol 1X ONCE IV Last administered on 07/26/18at 14:57 ; Start 07/26/18 at 14:30; Stop 07/26/18 at 14:31; Status DC Morphine Sulfate (Morphine Sulfate) 10 mg PRN Q2HR PRN IV PAIN SEVERE Last administered on 07/30/18at 06:58; Start 07/26/18 at 16:00 Polyethylene Glycol (miraLAX PACKET) 17 gm DAILY PO Last administered on at 08:10; Start 07/27/18 at 09:00 Docusate Sodium (Colace) 100 mg BID PO Last administered on 07/30/18at 08:11; Start 07/27/18 at 09:00 Sodium Chloride (Saline Mist Nasal) 1 rony PRN Q1HR PRN NS NASAL CONGESTION; Start 07/28/18 at 08:00 Lactobacillus Rhamnosus (Culturelle) 1 cap BID PO ; Start 07/28/18 at 21:00; Status Cancel Active Scripts Active Levaquin (Levofloxacin) 500 Mg Tablet 500 Mg PO DAILY06 Flomax (Tamsulosin Hcl) 0.4 Mg Cap.er.24h 0.4 Mg PO QHS Reported Revlimid (Lenalidomide) 25 Mg Capsule 25 Mg PO Gabapentin 300 Mg Capsule 300 Mg PO BID Sulfamethoxazole-Tmp Ds Tablet (Sulfamethoxazole/Trimethoprim) 1 Each Tablet 1 Tab PO BID Dexamethasone 4 Mg Tablet 40 Mg PO WEEKLY Acyclovir 800 Mg Tablet 1 Tab PO BID Aspirin 325 Mg Tablet 1 Tab PO DAILY Hyzaar 100-25 Tablet (Losartan/Hydrochlorothiazide) 1 Each Tablet 1 Each PO DAILY Hydrocodone-Apap 5-325 (Hydrocodone Bit/Acetaminophen) 1 Each Tablet 1 Tab PO PRN Q6HRS PRN Escitalopram Oxalate 10 Mg Tablet 10 Mg PO DAILY Flonase Allergy Relief (Fluticasone Propionate) 9.9 Ml [place].susp 2 Sprays NS DAILY Meloxicam 7.5 Mg Tablet 7.5 Mg PO DAILY Prilosec Otc (Omeprazole Magnesium) 20 Mg Tablet.dr 40 Mg PO DAILY Allopurinol 300 Mg Tablet 300 Mg PO DAILY Vitals/I & O Vital Sign - Last 24 Hours 07/29/18 07/29/18 07/29/18 07/29/18 08:59 09:20 10:35 11:00 Temp 98.3 98.3 Pulse 87 89 Resp 18 17 16 B/P (MAP) 167/102 159/90 (113) Pulse Ox 95 O2 Delivery Room Air Room Air 07/29/18 07/29/18 07/29/18 07/29/18 12:59 15:00 18:17 19:00 Temp 97.3 96.3 97.3 96.3 Pulse 106 90 Resp 18 17 2 18 B/P (MAP) 162/86 (111) 182/86 (118) Pulse Ox 99 92 O2 Delivery Room Air Room Air Room Air Room Air 07/29/18 07/29/18 07/29/18 07/29/18 20:00 20:02 22:06 22:36 Pulse Ox 99 99 99 O2 Delivery Room Air Room Air Room Air 07/29/18 07/30/18 07/30/18 07/30/18 23:00 03:00 03:01 04:01 Temp 97.3 99.0 97.3 99.0 Pulse 105 94 Resp 18 18 B/P (MAP) 130/56 (80) 148/78 (101) Pulse Ox 95 94 95 95 O2 Delivery Room Air Room Air Room Air Room Air 07/30/18 07/30/18 07/30/18 07/30/18 06:58 07:00 07:28 08:13 Temp 98.8 98.8 Pulse 89 94 Resp 16 18 B/P (MAP) 154/88 (110) 148/78 Pulse Ox 95 96 O2 Delivery Room Air Room Air Room Air Intake and Output 07/29/18 07/29/18 07/30/18 15:00 23:00 07:00 Intake Total 740 ml 740 ml 2300 ml Output Total 1200 ml 3700 ml Balance -460 ml 740 ml -1400 ml PHILLIP FUNEZ MD Jul 30, 2018 08:52
--- NOTE | 2018-07-30 09:07 | DISCH ---
DISCHARGE WITH HOME HEALTH DISCHARGE INFORMATION: Discharge Date: Jul 30, 2018 Final Diagnosis: Problems Medical Problems: (1) Hyponatremia Status: Acute (2) Meningitis Status: Acute (3) Vomiting Status: Acute Condition on Discharge: Stable CODE STATUS: Code Status: Full HOME HEALTH: Face to Face: I certify this patient is under my care and that I, had a face to face encounter that meets the physician face to face encounter requirements with this patient on 07/30 Medical Complications: Other (myeloma, meningitis) Snf For: Medication Management, Pain Management, Other: (has completed IV abx infusion) POST DISCHARGE ORDERS: Activity Instructions for Disc: Activity as tolerated Weight Bearing Status after Di: As tolerated DIET AFTER DISCHARGE: Cardiac CHECKS AFTER DISCHARGE: Checks after discharge: Check blood press - daily FOLLOW-UP: Follow up with: Dr. Johnson < 2 weeks TREATMENT/EQUIPMENT ORDERS: Adaptive Equipment Issued: None CERTIFICATION STATEMENT: Certification Statement: Certification Statement: Based on the above finding, I certify that this patient is confined to the home and needs intermittent chcf care, physical therapy and/or speech therapy, or continues to need occupational therapy.~ This patient is under my care, and I have initiated the establishment of the plan of care.~ This patient will be followed by myself or a community physician who will periodically review the plan of care. Home Meds Active Scripts Levofloxacin (LEVAQUIN) 500 Mg Tablet, 500 MG PO DAILY06, #7 TAB Prov:ANAYELI FLOWERS MD 07/13/18 Tamsulosin Hcl (FLOMAX) 0.4 Mg Cap.er.24h, 0.4 MG PO QHS, #30 CAP.SR 1 Refill Prov:ANAYELI FLOWERS MD 07/13/18 Reported Medications Lenalidomide (REVLIMID) 25 Mg Capsule, 25 MG PO, CAP 07/09/18 Gabapentin (GABAPENTIN) 300 Mg Capsule, 300 MG PO BID, CAP 07/09/18 Sulfamethoxazole/Trimethoprim (SULFAMETHOXAZOLE-TMP DS TABLET) 1 Each Tablet, 1 TAB PO BID, #14 TAB 07/09/18 Dexamethasone (DEXAMETHASONE) 4 Mg Tablet, 40 MG PO WEEKLY, TAB 07/09/18 Acyclovir (ACYCLOVIR) 800 Mg Tablet, 1 TAB PO BID, #50 TAB 07/09/18 Aspirin (ASPIRIN) 325 Mg Tablet, 1 TAB PO DAILY, #30 TAB 5 Refills 07/09/18 Losartan/Hydrochlorothiazide (HYZAAR 100-25 TABLET) 1 Each Tablet, 1 EACH PO DAILY, TAB 06/25/18 Hydrocodone Bit/Acetaminophen (HYDROCODONE-APAP 5-325 ) 1 Each Tablet, 1 TAB PO PRN Q6HRS PRN for PAIN, TAB 0 Refills 06/25/18 Escitalopram Oxalate (ESCITALOPRAM OXALATE) 10 Mg Tablet, 10 MG PO DAILY for ANTI-DEPRESSANT, #30 TAB 0 Refills 06/25/18 Fluticasone Propionate (Flonase Allergy Relief) 9.9 Ml [place].susp, 2 SPRAYS NS DAILY, BOTTLE 06/11/18 Meloxicam (MELOXICAM) 7.5 Mg Tablet, 7.5 MG PO DAILY, TAB 12/04/15 Omeprazole Magnesium (PRILOSEC OTC) 20 Mg Tablet.dr, 40 MG PO DAILY, TAB 04/27/14 Allopurinol (ALLOPURINOL) 300 Mg Tablet, 300 MG PO DAILY, TAB 04/27/14 ANAYELI FLOWERS MD Jul 30, 2018 09:07
[2018-07-30] MEDS ORDERED: GABA-586 PO (09:16)
[2018-07-30] MEDS ORDERED: GABAPENTIN 100 MG CAPSULE. PO ONE (10:00)
[2018-07-30 13:22] LABS: IMMUNOGLOBULIN A 686 mg/dL (90-386); IMMUNOGLOBULIN G 220 mg/dL (700-1600); IMMUNOGLOBULIN M 40 mg/dL (20-172)
[2018-07-30 15:31] LABS: ALBUM 2.9 g/dL (2.9-4.4); ALPHA 1 0.3 g/dL (0.0-0.4); ALPHA 2 0.7 g/dL (0.4-1.0); BETA 0.8 g/dL (0.7-1.3); GAMMA 0.9 g/dL (0.4-1.8); PROTEIN TOTAL 5.5 g/dL (6.0-8.5); SPEP AG RATIO 1.1 (0.7-1.7)
[2018-07-30] MEDS ORDERED: GABAPENTIN 400 MG CAPSULE. PO SCH (21:00)
[2018-08-01] MEDS ORDERED: DEXAMETHASONE 4 MG TABLET PO SCH (09:00)
[2018-08-08] MEDS ORDERED: MORP15TA3 PO (08:23)
[2018-08-08] MEDS ORDERED: OXYC5TAB95 PO (08:23)
[2018-08-18] MEDS ORDERED: POLY17PO29 PO (09:07)
[2018-08-18] MEDS ORDERED: SULF1TAB24 PO (09:07)
[2018-08-18] MEDS ORDERED: DEXA6TAB PO (09:07)
[2018-08-18] MEDS ORDERED: SENN8.6T99 PO (09:07)
[2018-08-18] MEDS ORDERED: BORT3.5V IJ (09:07)
== END 2018-07-30 11:55 | disposition home or self-care (01) | DRG 95 ==
LOC: ER 07:14 → 5 NORTH 10:05
PROVIDERS: ADMIT Internal Medicine; ATTEND Internal Medicine
PROC: 009U3ZX Drainage of Spinal Canal, Percutaneous Approach, Diagnostic (ICD-10-PCS; principal; 2018-07-25)
DX: G00.9 Bacterial meningitis, unspecified (principal); G93.40 Encephalopathy, unspecified; C90.00 Multiple myeloma not having achieved remission; E87.1 Hypo-osmolality and hyponatremia; I10 Essential (primary) hypertension; E87.6 Hypokalemia; F41.9 Anxiety disorder, unspecified; E78.00 Pure hypercholesterolemia, unspecified; M10.9 Gout, unspecified; K57.90 Diverticulosis of intestine, part unspecified, without perforation or abscess without bleeding; K21.9 Gastro-esophageal reflux disease without esophagitis; E78.5 Hyperlipidemia, unspecified; D69.6 Thrombocytopenia, unspecified; M51.36 Other intervertebral disc degeneration, lumbar region; K59.00 Constipation, unspecified; Z88.0 Allergy status to penicillin; Z87.891 Personal history of nicotine dependence; Z83.3 Family history of diabetes mellitus; Z82.49 Family history of ischemic heart disease and other diseases of the circulatory system; Z86.61 Personal history of infections of the central nervous system
CPT/HCPCS: 36415; 71045; 72158; 80048; 80053; 81001; 82784; 83520; 83605; 84165; 84443; 85025; 86334; 87040; 96361; 96374; A9585; J1170; J2185; J2270; J2405; J7030; Q0163; 97116; 99285-25

== ENCOUNTER 2018-08-02 12:28 | Inpatient (IN) | payer OTHER ==
[~2018-08-02] VITALS: Ht 177.8 cm; Wt 103.0 kg
[2018-08-02] MEDS ORDERED: IV NORMAL SALINE 1000ML BAG 1,000 ML IV SCH (13:26)
--- NOTE | 2018-08-02 13:32 | EKG ---
[address] [place] [address] Test Date: 2018-08-02 Test Time: 13:17:19 Pat Name: JOHN FORTE Department: Room: Gender: M [employer]: : [id number] Requested By: OSMIN MORRISON Order Number: [id number] Reading MD: Abilio Colbert MD Measurements Intervals [place] Rate: 79 P: 7 RI: 134 QRS: -28 QRSD: 78 T: 16 QT: 382 QTc: 439 Interpretive Statements SINUS RHYTHM Electronically Signed On 08-02-2018 15:45:05 CDT by Abilio Colbert MD
[2018-08-02 13:44] LABS: CREATININE 0.7 mg/dL (0.7-1.3); GFR 116.2; POTASSIUM 3.4 mmol/L (3.5-5.1)
[2018-08-02 13:46] LABS: BASO % 1 % (0-3); EOS % 1 % (0-3); HEMOGLOBIN 11.6 g/dL (13.0-17.5); LYMPH # 0.9 x10^3/uL (1.0-4.8); LYMPH % 20 % (24-48); MEAN CORPUSCULAR HEMOGLOBIN 34 pg (25-35); MEAN CORPUSCULAR HGB CONC 35 g/dL (31-37); MEAN CORPUSCULAR VOLUME 97 fL (79-100); MONO # 0.3 x10^3/uL (0.0-1.1); MONO % 7 % (0-9); NEUT # 3.3 x10^3uL (1.8-7.7); NEUT % 72 % (31-73); PLATELET COUNT 191 x10^3/uL (140-400); RED BLOOD COUNT 3.41 x10^6/uL (4.30-5.70); RED CELL DISTRIBUTION WIDTH 17.9 % (11.5-14.5); WHITE BLOOD COUNT 4.6 x10^3/uL (4.0-11.0)
[2018-08-02 13:50] LABS: ALBUMIN 3.7 g/dL (3.4-5.0); ALBUMIN/GLOBULIN RATIO 0.8 (1.0-1.7); MAGNESIUM 1.4 mg/dL (1.8-2.4); TOTAL BILIRUBIN 1.1 mg/dL (0.2-1.0); TOTAL PROTEIN 8.5 g/dL (6.4-8.2)
[2018-08-02 13:57] LABS: FREE T4 1.21 ng/dL (0.76-1.46); THYROID STIM HORMONE (TSH) 2.832 uIU/mL (0.358-3.74)
--- NOTE | 2018-08-02 13:57 | PHYS DOC ---
Past Medical History Past Medical History: Anxiety, Cancer, High Cholesterol, Hypertension, Other Additional Past Medical Histor: Gout,multiple myeloma TX'D CHEMO,BACTERIAL MENEGITIS Past Surgical History: Cholecystectomy, Tonsillectomy Alcohol Use: Occasionally Drug Use: None Adult General Chief Complaint Chief Complaint: HYPERTENSION HPI HPI Patient is a 58-year-old male who presents to the emergency department for evaluation. He has a history of multiple myeloma, hypertension, and other medical issues. He presents to the emergency department today, primarily because he states his blood pressures have been running elevated at home. He states his blood pressure was 170 systolic today. This concerned him. He also woke with a mild headache, which has gradually been worsening throughout the day. He states, that even at his maximum intensity, his headache (which is global and diffuse), is not the worst headache he has had in his life. He was diagnosed with meningitis earlier this month, and states that the headache that he had at that time his significantly worse and different than his current headache. This headache is mild, and he has had similar headaches occasionally in the past. He has not had any neck stiffness or confusion, fevers, or chills. He denies any chest pain shortness of breath. He does report some generalized fatigue. He called his oncologist, Dr. Johnson, who referred the patient to the emergency department for evaluation. He denies any chest pain or shortness of breath, dizziness or lightheadedness, numbness, or focal weakness. (His family he has not had any acute mental status changes. There are no alleviating or exacerbating factors to the patient's symptoms otherwise. The patient also states he has not able to urinate, although he states he does not know steadily feel the urge to do so. He does not feel that his bladder is distended. He states he has had similar symptoms in the past. Review of Systems Review of Systems Constitutional: Denies fever or chills reports feeling generalized fatigue and weakness.[] Eyes: Denies change in visual acuity, redness, or eye pain [] HENT: Denies nasal congestion or sore throat [] Respiratory: Denies cough or shortness of breath [] Cardiovascular: The patient denies any shortness of breath, chest pain, palpitations, or orthopnea [] GI: Denies abdominal pain, vomiting, bloody stools or diarrhea. He does admit to some nausea. [] : Denies dysuria or hematuria. Does report decreased urine output. [] Musculoskeletal: Denies back pain or joint pain [] Integument: Denies rash or skin lesions [] Neurologic: Denies focal weakness or sensory changes [] Endocrine: Denies polyuria or polydipsia [] All other systems were reviewed and found to be within normal limits, except as documented in this note. Current Medications Current Medications Current Medications Medications (Trade) Dose Ordered Sig/Miguelina Start Time Stop Time Status Last Admin Dose Admin Fentanyl Citrate (Fentanyl 2ml Vial) 50 mcg 1X ONCE 08/02/18 15:15 08/02/18 15:16 DC 08/02/18 15:13 50 MCG Magnesium Sulfate 50 ml @ 25 mls/hr 1X ONCE 08/02/18 17:00 08/02/18 18:59 Ondansetron HCl (Zofran) 4 mg 1X ONCE 08/02/18 15:15 08/02/18 15:16 DC 08/02/18 15:12 4 MG Sodium Chloride 1,000 ml @ 1,000 mls/hr Q1H 08/02/18 13:26 08/02/18 14:25 DC 08/02/18 14:04 1,000 MLS/HR Allergies Allergies Allergies Coded Allergies Type Severity Reaction Last Updated Verified amoxicillin Allergy Intermediate 07/17/18 Yes Penicillins Adverse Reaction Intermediate Nausea and Vomiting 07/06/18 Yes Physical Exam Physical Exam PHYSICAL EXAM: CONSTITUTIONAL: Well developed, well nourished HEAD: normocephalic, atraumatic EENT: PERRL, EOMI. Conjunctivae normal color, sclerae non-icteric; moist mucous membranes. NECK: Supple, non-tender; no meningismus. LUNGS: Lungs CTA, breathing even and unlabored. Normal air movement. HEART: Regular rate and rhythm, no murmur CHEST: No deformity; non-tender ABDOMEN: The abdomen is soft, and non-tender, no masses or bruits. EXTREM: Normal ROM; no deformity, no calf tenderness. Normal pulses palpable in all extremities. There is no pedal edema. SKIN: No rash; no diaphoresis NEURO: Alert; normal speech and cognition; CN's grossly intact; strength grossly intact without focal deficit. BACK: No CVA TTP. Current Patient Data Vital Signs Vital Signs Date Time Temp Pulse Resp B/P (MAP) Pulse Ox O2 Delivery O2 Flow Rate FiO2 08/02/18 15:13 20 97 Room Air 08/02/18 15:05 70 08/02/18 13:04 97.8 169/121 (137) 97.8 Lab Values Laboratory Tests Test 08/02/18 13:23 08/02/18 14:40 White Blood Count 4.6 x10^3/uL (4.0-11.0) Red Blood Count 3.41 x10^6/uL (4.30-5.70) L Hemoglobin 11.6 g/dL (13.0-17.5) L Hematocrit 33.0 % (39.0-53.0) L Mean Corpuscular Volume 97 fL (79-100) Mean Corpuscular Hemoglobin 34 pg (25-35) Mean Corpuscular Hemoglobin Concent 35 g/dL (31-37) Red Cell Distribution Width 17.9 % (11.5-14.5) H Platelet Count 191 x10^3/uL (140-400) Neutrophils (%) (Auto) 72 % (31-73) Lymphocytes (%) (Auto) 20 % (24-48) L Monocytes (%) (Auto) 7 % (0-9) Eosinophils (%) (Auto) 1 % (0-3) Basophils (%) (Auto) 1 % (0-3) Neutrophils # (Auto) 3.3 x10^3uL (1.8-7.7) Lymphocytes # (Auto) 0.9 x10^3/uL (1.0-4.8) L Monocytes # (Auto) 0.3 x10^3/uL (0.0-1.1) Eosinophils # (Auto) 0.0 x10^3/uL (0.0-0.7) Basophils # (Auto) 0.0 x10^3/uL (0.0-0.2) Sodium Level 130 mmol/L (136-145) L Potassium Level 3.4 mmol/L (3.5-5.1) L Chloride Level 92 mmol/L (98-107) L Carbon Dioxide Level 28 mmol/L (21-32) Anion Gap 10 (6-14) Blood Urea Nitrogen 5 mg/dL (8-26) L Creatinine 0.7 mg/dL (0.7-1.3) Estimated GFR (Cockcroft-Gault) 116.2 BUN/Creatinine Ratio 7 (6-20) Glucose Level 128 mg/dL (70-99) H Calcium Level 9.0 mg/dL (8.5-10.1) Magnesium Level 1.4 mg/dL (1.8-2.4) L Total Bilirubin 1.1 mg/dL (0.2-1.0) H Aspartate Amino Transferase (AST) 23 U/L (15-37) Alanine Aminotransferase (ALT) 19 U/L (16-63) Alkaline Phosphatase 113 U/L (46-116) Troponin I Quantitative < 0.017 ng/mL (0.000-0.055) Total Protein 8.5 g/dL (6.4-8.2) H Albumin 3.7 g/dL (3.4-5.0) Albumin/Globulin Ratio 0.8 (1.0-1.7) L Lipase 121 U/L (73-393) Thyroid Stimulating Hormone (TSH) 2.832 uIU/mL (0.358-3.74) Free Thyroxine 1.21 ng/dL (0.76-1.46) Urine Collection Type Void Urine Color Yellow Urine Clarity Clear Urine pH 8.0 Urine Specific [place] 1.010 Urine Protein Negative mg/dL (NEG-TRACE) Urine Glucose (UA) Negative mg/dL (NEG) Urine Ketones (Stick) Negative mg/dL (NEG) Urine Blood Moderate (NEG) Urine Nitrite Negative (NEG) Urine Bilirubin Negative (NEG) Urine Urobilinogen Dipstick 0.2 mg/dL (0.2 mg/dL) Urine Leukocyte Esterase Negative (NEG) Urine RBC 20-40 /HPF (0-2) Urine WBC Rare /HPF (0-4) Urine Bacteria 0 /HPF (0-FEW) Laboratory Tests 08/02/18 13:23 Laboratory Tests 08/02/18 13:23 EKG EKG [Normal sinus rhythm at a rate of 79 bpm, left axis deviation, normal intervals. There are no acute ischemic ST/T changes. Nonspecific changes are present.] Radiology/Procedures Radiology/Procedures [PROCEDURE: CT HEAD WO CONTRAST CT head without intravenous contrast History: Weakness. Headache. Comparison: CT head July 15, 2018. Technique: Axial images are obtained of the head from the skull base through the vertex without IV contrast. Exposure: One or more of the following individualized dose reduction techniques were utilized for this examination: 1. Automated exposure control 2. Adjustment of the mA and/or kV according to patient size 3. Use of iterative reconstruction technique Findings: The ventricles are appropriate in size, shape, and location for the patient's age. No obvious intracranial mass, mass-effect, midline shift, hemorrhage or obvious acute infarction is identified. Basilar cisterns are patent. Bone windows demonstrate no acute calvarial abnormality. The visualized paranasal sinuses appear clear. Impression: 1. No acute intracranial process. ] PROCEDURE: PORTABLE CHEST 1V PORTABLE CHEST 1V Clinical Indication: WEAKNESS Comparison: AP chest July 25, 2018. Findings: The cardiomediastinal silhouette is normal. Mild elevation right hemidiaphragm. Lungs are clear. There is no pneumothorax. No pleural effusion is appreciated. No acute bone abnormality. IMPRESSION: No acute cardiopulmonary process. Course & Med Decision Making Course & Med Decision Making Pertinent Labs and Imaging studies reviewed. (See chart for details) [4:50 PM: The patient's condition remained stable but he still appears extremely nauseated. He was able to urinate. The exact etiology of the hematuria is unknown at this time. The patient states he feels too nauseated and weak to go home. I did discuss the case with Dr. Johnson after the patient's initial presentation. The patient will be admitted to the hospital for further evaluation and treatment.] Dragon Disclaimer Dragon Disclaimer This electronic medical record was generated, in whole or in part, using a voice recognition dictation system. Departure Departure Impression: Primary Impression: Weakness Additional Impressions: Hyponatremia Hypomagnesemia Multiple myeloma Microscopic hematuria Disposition: ADMITTED INPATIENT Admitting Physician: Other (Riffel) Condition: STABLE Referrals: KAMI RIOJAS (PCP) Problem Qualifiers OSMIN MORRISON MD Aug 02, 2018 13:57
--- NOTE | 2018-08-02 14:07 | RAD ---
PORTABLE CHEST 1V Clinical Indication: WEAKNESS Comparison: AP chest July 25, 2018. Findings: The cardiomediastinal silhouette is normal. Mild elevation right hemidiaphragm. Lungs are clear. There is no pneumothorax. No pleural effusion is appreciated. No acute bone abnormality. IMPRESSION: No acute cardiopulmonary process. Electronically signed by: Dexter Alfredo MD (08/02/2018 2:03 PM) [id number]
--- NOTE | 2018-08-02 14:19 | RAD ---
CT head without intravenous contrast History: Weakness. Headache. Comparison: CT head July 15, 2018. Technique: Axial images are obtained of the head from the skull base through the vertex without IV contrast. Exposure: One or more of the following individualized dose reduction techniques were utilized for this examination: 1. Automated exposure control 2. Adjustment of the mA and/or kV according to patient size 3. Use of iterative reconstruction technique Findings: The ventricles are appropriate in size, shape, and location for the patient's age. No obvious intracranial mass, mass-effect, midline shift, hemorrhage or obvious acute infarction is identified. Basilar cisterns are patent. Bone windows demonstrate no acute calvarial abnormality. The visualized paranasal sinuses appear clear. Impression: 1. No acute intracranial process. Electronically signed by: Isma Gardiner MD (08/02/2018 2:16 PM) [place] [id number]
[2018-08-02 14:52] LABS: BILIRUBIN,URINE NEGATIVE (NEG); CLARITY,URINE CLEAR; COLOR,URINE YELLOW; NITRITE,URINE NEGATIVE (NEG); PROTEIN,URINE NEGATIVE (NEG-TRACE); UROBILINOGEN,URINE 0.2 mg/dL (0.2 mg/dL)
[2018-08-02 15:01] LABS: RBC,URINE 20-40 /HPF (0-2)
[2018-08-02 15:02] LABS: BACTERIA,URINE 0 /HPF (0-FEW); WBC,URINE RARE /HPF (0-4)
[2018-08-02] MEDS ORDERED: ONDANSETRON PF 4 MG/2 ML VIAL. IV ONE ×2 (15:15→17:15)
[2018-08-02] MEDS ORDERED: fentaNYL PF VIAL 100 MCG/2 ML VIAL IV ONE ×2 (15:15→17:00)
[2018-08-02] MEDS ORDERED: MAGNESIUM SULFATE 2GM 50 ML IV ONE (17:00)
[2018-08-02] MEDS ORDERED: ONDANSETRON PF 4 MG/2 ML VIAL. IV PRN ×2 (17:00→20:15)
[2018-08-02 19:00] VITALS: BP 176/100
[2018-08-02] MEDS ORDERED: ACETAMINOPHEN 325 MG TABLET. PO PRN (20:15)
[2018-08-02] MEDS ORDERED: BISACODYL 10 MG SUPP.RECT. PR PRN (20:15)
[2018-08-02] MEDS ORDERED: KETOROLAC 30 MG/ML VIAL. IV PRN (20:15)
[2018-08-02] MEDS ORDERED: LACTULOSE 20 GM/30 ML SOLUTION. PO PRN (20:15)
[2018-08-02] MEDS ORDERED: MORPHINE SULFATE 2 MG/ML VIAL. IV PRN (20:15)
[2018-08-02] MEDS ORDERED: hydrALAZINE 10 MG TABLET PO SCH (20:30)
[2018-08-02] MEDS ORDERED: ENALAPRILAT 1.25 MG/ML VIAL. IVP PRN (20:30)
[2018-08-02] MEDS ORDERED: LABETALOL 20 MG/4 ML DISP.SYRIN. IVP PRN (20:30)
[2018-08-02] MEDS: PROCHLORPERAZINE 10 MG/2 ML VIAL. IV PRN (20:34)
[2018-08-02] MEDS: SENNOSIDES/DOCUSATE 8.6/50MG TABLET. PO SCH (20:43)
[2018-08-02] MEDS: ACYCLOVIR 200 MG CAPSULE. PO SCH (20:43)
[2018-08-02] MEDS: GABAPENTIN 400 MG CAPSULE. PO SCH (20:43)
[2018-08-02] MEDS: TAMSULOSIN 0.4 MG CAP.ER.24H. PO SCH (20:43)
--- NOTE | 2018-08-02 20:49 | PDOC1 ---
History and Physical Date of Admission Date of Admission DATE: 08/02/18 TIME: 20:24 Identification/Chief Complaint Chief Complaint Nausea Hypomagnesemia Headache Hyponatremia SIRS Multiple Myeloma History of Present Illness History of Present Illness 58-year-old male w/ PMHx HTN, multiple myeloma p/w blood pressures running elevated at home. He states his blood pressure was 170 systolic today. This concerned him. He also woke with a mild headache, which has gradually been worsening throughout the day. It has progressed now 6/10, throbbing. He was diagnosed with meningitis earlier this month, and states that the headache that he had at that time his significantly worse and different than his current headache. This headache is mild, and he has had similar headaches occasionally in the past. Denies neck stiffness or confusion, fevers, or chills. He denies any chest pain shortness of breath. He does report some generalized fatigue. He called his oncologist, Dr. Johnson, who referred the patient to the emergency department for evaluation. The patient also states he has not able to urinate, although he states he does not know steadily feel the urge to do so. He does not feel that his bladder is distended. He states he has had similar symptoms in the past. He also notes constipation and moderately severe bone pain he relates to his myeloma. Found with low magnesium at 1.4 in the ED as well as sodium of 130. Past Medical History Cardiovascular: HTN, Hyperlipidemia Pulmonary: No pertinent hx GI: Diverticulosis, GERD, Gastritis Heme/Onc: No pertinent hx Hepatobiliary: No pertinent hx Psych: Anxiety Rheumatologic: No pertinent hx Infectious disease: No pertinent hx Renal/: No pertinent hx Endocrine: No pertinent hx Past Surgical History Past Surgical History: Tonsillectomy Family History Family History: No Significant Social History ALCOHOL: none Drugs: None Current Problem List Problem List Problems Medical Problems: (1) Hypomagnesemia Status: Acute (2) Hyponatremia Status: Acute (3) Microscopic hematuria Status: Acute (4) Multiple myeloma Status: Acute (5) Weakness Status: Acute Current Medications Current Medications Current Medications Sodium Chloride 1,000 ml @ 1,000 mls/hr Q1H IV Last administered on at 14:04; Start 08/02/18 at 13:26; Stop 08/02/18 at 14:25; Status DC Fentanyl Citrate (Fentanyl 2ml Vial) 50 mcg 1X ONCE IV Last administered on at 15:13; Start 08/02/18 at 15:15; Stop 08/02/18 at 15:16; Status DC Ondansetron HCl (Zofran) 4 mg 1X ONCE IV Last administered on 08/02/18at 15:12 ; Start 08/02/18 at 15:15; Stop 08/02/18 at 15:16; Status DC Magnesium Sulfate 50 ml @ 25 mls/hr 1X ONCE IV Last administered on at 17:24; Start 08/02/18 at 17:00; Stop 08/02/18 at 18:59; Status DC Fentanyl Citrate (Fentanyl 2ml Vial) 50 mcg 1X ONCE IV Last administered on at 17:04; Start 08/02/18 at 17:00; Stop 08/02/18 at 17:01; Status DC Ondansetron HCl (Zofran) 4 mg PRN Q8HRS PRN IV NAUSEA/VOMITING; Start at 17:00; Stop 08/03/18 at 16:59 Ondansetron HCl (Zofran) 4 mg 1X ONCE IV Last administered on 08/02/18at 17:20 ; Start 08/02/18 at 17:15; Stop 08/02/18 at 17:16; Status DC Ondansetron HCl (Zofran) 4 mg PRN Q6HRS PRN IV NAUSEA/VOMITING; Start at 20:15 Prochlorperazine Edisylate (Compazine) 10 mg PRN Q6HRS PRN IV NAUSEA/VOMITING; Start 08/02/18 at 20:15 Morphine Sulfate (Morphine Sulfate) 10 mg PRN Q4HRS PRN IV PAIN; Start at 20:15 Oxycodone HCl (Roxicodone) 5 mg PRN Q4HRS PRN PO MILD PAIN, 2ND CHOICE; Start 08/02/18 at 20:15 Oxycodone HCl (Roxicodone) 10 mg PRN Q4HRS PRN PO MODERATE PAIN, SEVERE PAIN; Start 08/02/18 at 20:15 Ketorolac Tromethamine (Toradol 30mg Vial) 30 mg PRN Q6HRS PRN IV PAIN; Start 08/02/18 at 20:15; Stop 08/07/18 at 20:14 Acetaminophen (Tylenol) 650 mg PRN Q6HRS PRN PO Headaches, Temp > 101.5F; Start 08/02/18 at 20:15 Senna/Docusate Sodium (Senna Plus) 1 tab BID PO ; Start 08/02/18 at 21:00; Status UNV Lactulose (Lactulose) 20 gm PRN Q12HR PRN PO CONSTIPATION; Start 08/02/18 at 20:15; Status UNV Bisacodyl (Dulcolax Supp) 10 mg PRN DAILY PRN DE CONSTIPATION; Start 08/02/18 at 20:15; Status UNV Heparin Sodium (Porcine) (Heparin Sodium) 5,000 unit Q8HRS SQ ; Start 08/02/18 at 22:00; Status UNV Allopurinol (Zyloprim) 300 mg DAILY PO ; Start 08/03/18 at 09:00; Status UNV Aspirin (Debbie Aspirin) 325 mg DAILY PO ; Start 08/03/18 at 09:00; Status UNV Tamsulosin HCl (Flomax) 0.4 mg QHS PO ; Start 08/02/18 at 21:00; Status UNV Non-Formulary Medication (Acyclovir ) 1 tab BID PO ; Start 08/02/18 at 21:00; Status UNV Non-Formulary Medication (Escitalopram Oxalate ) 10 mg DAILY PO ; Start at 09:00; Status UNV Non-Formulary Medication (Fluticasone Propionate (Flonase Allergy Relief)) 2 sprays DAILY NS ; Start 08/03/18 at 09:00; Status UNV Non-Formulary Medication (Gabapentin ) 800 mg BID PO ; Start 08/02/18 at 21:00 ; Status UNV Non-Formulary Medication (Losartan/ Hydrochlorothiazide (Hyzaar 100-25 Tablet)) 1 each DAILY PO ; Start 08/03/18 at 09:00; Status UNV Non-Formulary Medication (Meloxicam ) 7.5 mg DAILY PO ; Start 08/03/18 at 09:00 ; Status UNV Non-Formulary Medication (Omeprazole Magnesium (Prilosec Otc)) 40 mg DAILY PO ; Start 08/03/18 at 09:00; Status UNV Active Scripts Active Gabapentin 300 Mg Capsule 800 Mg PO BID Flomax (Tamsulosin Hcl) 0.4 Mg Cap.er.24h 0.4 Mg PO QHS Reported Revlimid (Lenalidomide) 25 Mg Capsule 25 Mg PO Dexamethasone 4 Mg Tablet 40 Mg PO WEEKLY Acyclovir 800 Mg Tablet 1 Tab PO BID Aspirin 325 Mg Tablet 1 Tab PO DAILY Hyzaar 100-25 Tablet (Losartan/Hydrochlorothiazide) 1 Each Tablet 1 Each PO DAILY Hydrocodone-Apap 5-325 (Hydrocodone Bit/Acetaminophen) 1 Each Tablet 1 Tab PO PRN Q6HRS PRN Escitalopram Oxalate 10 Mg Tablet 10 Mg PO DAILY Flonase Allergy Relief (Fluticasone Propionate) 9.9 Ml Henry.susp 2 Sprays NS DAILY Meloxicam 7.5 Mg Tablet 7.5 Mg PO DAILY Prilosec Otc (Omeprazole Magnesium) 20 Mg Tablet.dr 40 Mg PO DAILY Allopurinol 300 Mg Tablet 300 Mg PO DAILY Allergies Allergies: Coded Allergies: amoxicillin (Verified Allergy, Intermediate, 07/17/18) TOLERATES AMPICILLIN IV Penicillins (Verified Adverse Reaction, Intermediate, Nausea and Vomiting , 07/06/18) ROS General: YES: Fatigue, Malaise PSYCHOLOGICAL ROS: No: Anxiety, Behavioral Disorder, Concentration difficultie , Decreased libido, Depression, Disorientation, Hallucinations, Hostility, Irritablity, Memory difficulties, Mood Swings, Obsessive thoughts, Physical abuse, Sexual abuse, Sleep disturbances, Suicidal ideation, Other Eyes: No Blurry vision, No Decreased vision, No Double vision, No Dry eyes, No Excessive tearing, No Eye Pain, No Itchy Eyes, No Loss of vision, No Photophobia , No Scotomata, No Uses contacts, No Uses glasses, No Other HEENT: YES: Heacaches; No: Visual Changes, Hearing change, Nasal congestion, Nasal discharge, Oral lesions, Sinus pain, Sore Throat, Epistaxis, Sneezing, Snoring, Tinnitus, Vertigo, Vocal changes, Other ALLERGY AND IMMUNOLOGY: No: Hives, Insect Bite Sensitivity, Itchy/Watery Eyes, Nasal Congestion, Post Nasal Drip, Seasonal Allergies, Other ENDOCRINE: No: Breast Changes, Galactorrhea, Hair Pattern Changes, Hot Flashes , Malaise/lethargy, Mood Swings, Palpitations, Polydipsia/polyuria, Skin Changes , Temperature Intolerance, Unexpected Weight Changes, Other Respiratory: No: Cough, Hemoptysis, Orthopnea, Pleuritic Pain, Shortness of breath, SOB with excertion, Sputum Changes, Stridor, Tachypnea, Wheezing, Other Cardiovascular: No Chest Pain, No Palpitations, No Orthopnea, No Paroxysmal Noc. Dyspnea, No Edema, No Lt Headedness, No Other Gastrointestinal: Yes Nausea, Yes Constipation; No Vomiting, No Abdominal Pain, No Diarrhea, No Melena, No Hematochezia, No Other Genitourinary: YES Retention; No Dysuria, No Frequency, No Incontinence, No Hematuria, No Discharge, No Urgency, No Pain, No Flank Pain, No Other, No , No , No , No , No , No , No Musculoskeletal: No Gait Disturbance, No Joint Pain, No Joint Stiffness, No Joint Swelling, No Muscle Pain, No Muscular Weakness, No Pain In:, No Swelling In:, No Other Neurological: Yes Headaches; No Behavorial Changes, No Bowel/Bladder ControlChng, No Confusion, No Dizziness, No Gait Disturbance, No Impaired Coord/balance, No Memory Loss, No Numbness/Tingling, No Seizures, No Speech Problems, No Tremors, No Visual Changes, No Weakness, No Other Skin: No Dry Skin, No Eczema, No Hair Changes, No Lumps, No Mole Changes, No Mottling, No Nail Changes, No Pruritus, No Rash, No Skin Lesion Changes, No Other, No Acne Physical Exam General: Alert, Oriented X3, Cooperative, mild distress HEENT: Atraumatic, PERRLA, EOMI, Mucous membr. moist/pink Lungs: Clear to auscultation, Normal air movement Heart: S1S2, RRR, no murmurs Abdomen: Normal bowel sounds, Soft, No tenderness, No hepatosplenomegaly, No masses Extremities: No clubbing, No cyanosis, No edema, Normal pulses, No tenderness/ swelling Skin: No rashes, No breakdown, No significant lesion Neuro: Normal gait, Normal speech, Strength at 5/5 X4 ext, Normal tone, Sensation intact, Cranial nerves 3-12 NL, Reflexes 2+ Psych/Mental Status: Mental status NL, Mood NL Vitals Vitals Vital Signs Date Time Temp Pulse Resp B/P (MAP) Pulse Ox O2 Delivery O2 Flow Rate FiO2 08/02/18 19:30 78 16 98 08/02/18 19:00 96.3 176/100 (125) Room Air 96.3 Labs Labs Laboratory Tests Test 08/02/18 13:23 08/02/18 14:40 White Blood Count 4.6 x10^3/uL (4.0-11.0) Red Blood Count 3.41 x10^6/uL (4.30-5.70) Hemoglobin 11.6 g/dL (13.0-17.5) Hematocrit 33.0 % (39.0-53.0) Mean Corpuscular Volume 97 fL (79-100) Mean Corpuscular Hemoglobin 34 pg (25-35) Mean Corpuscular Hemoglobin Concent 35 g/dL (31-37) Red Cell Distribution Width 17.9 % (11.5-14.5) Platelet Count 191 x10^3/uL (140-400) Neutrophils (%) (Auto) 72 % (31-73) Lymphocytes (%) (Auto) 20 % (24-48) Monocytes (%) (Auto) 7 % (0-9) Eosinophils (%) (Auto) 1 % (0-3) Basophils (%) (Auto) 1 % (0-3) Neutrophils # (Auto) 3.3 x10^3uL (1.8-7.7) Lymphocytes # (Auto) 0.9 x10^3/uL (1.0-4.8) Monocytes # (Auto) 0.3 x10^3/uL (0.0-1.1) Eosinophils # (Auto) 0.0 x10^3/uL (0.0-0.7) Basophils # (Auto) 0.0 x10^3/uL (0.0-0.2) Sodium Level 130 mmol/L (136-145) Potassium Level 3.4 mmol/L (3.5-5.1) Chloride Level 92 mmol/L (98-107) Carbon Dioxide Level 28 mmol/L (21-32) Anion Gap 10 (6-14) Blood Urea Nitrogen 5 mg/dL (8-26) Creatinine 0.7 mg/dL (0.7-1.3) Estimated GFR (Cockcroft-Gault) 116.2 BUN/Creatinine Ratio 7 (6-20) Glucose Level 128 mg/dL (70-99) Calcium Level 9.0 mg/dL (8.5-10.1) Magnesium Level 1.4 mg/dL (1.8-2.4) Total Bilirubin 1.1 mg/dL (0.2-1.0) Aspartate Amino Transf (AST/SGOT) 23 U/L (15-37) Alanine Aminotransferase (ALT/SGPT) 19 U/L (16-63) Alkaline Phosphatase 113 U/L (46-116) Troponin I Quantitative < 0.017 ng/mL (0.000-0.055) Total Protein 8.5 g/dL (6.4-8.2) Albumin 3.7 g/dL (3.4-5.0) Albumin/Globulin Ratio 0.8 (1.0-1.7) Lipase 121 U/L (73-393) Thyroid Stimulating Hormone (TSH) 2.832 uIU/mL (0.358-3.74) Free Thyroxine 1.21 ng/dL (0.76-1.46) Urine Collection Type Void Urine Color Yellow Urine Clarity Clear Urine pH 8.0 Urine Specific D[place] 1.010 Urine Protein Negative mg/dL (NEG-TRACE) Urine Glucose (UA) Negative mg/dL (NEG) Urine Ketones (Stick) Negative mg/dL (NEG) Urine Blood Moderate (NEG) Urine Nitrite Negative (NEG) Urine Bilirubin Negative (NEG) Urine Urobilinogen Dipstick 0.2 mg/dL (0.2 mg/dL) Urine Leukocyte Esterase Negative (NEG) Urine RBC 20-40 /HPF (0-2) Urine WBC Rare /HPF (0-4) Urine Bacteria 0 /HPF (0-FEW) Laboratory Tests Test 08/02/18 13:23 08/02/18 14:40 White Blood Count 4.6 x10^3/uL (4.0-11.0) Red Blood Count 3.41 x10^6/uL (4.30-5.70) Hemoglobin 11.6 g/dL (13.0-17.5) Hematocrit 33.0 % (39.0-53.0) Mean Corpuscular Volume 97 fL (79-100) Mean Corpuscular Hemoglobin 34 pg (25-35) Mean Corpuscular Hemoglobin Concent 35 g/dL (31-37) Red Cell Distribution Width 17.9 % (11.5-14.5) Platelet Count 191 x10^3/uL (140-400) Neutrophils (%) (Auto) 72 % (31-73) Lymphocytes (%) (Auto) 20 % (24-48) Monocytes (%) (Auto) 7 % (0-9) Eosinophils (%) (Auto) 1 % (0-3) Basophils (%) (Auto) 1 % (0-3) Neutrophils # (Auto) 3.3 x10^3uL (1.8-7.7) Lymphocytes # (Auto) 0.9 x10^3/uL (1.0-4.8) Monocytes # (Auto) 0.3 x10^3/uL (0.0-1.1) Eosinophils # (Auto) 0.0 x10^3/uL (0.0-0.7) Basophils # (Auto) 0.0 x10^3/uL (0.0-0.2) Sodium Level 130 mmol/L (136-145) Potassium Level 3.4 mmol/L (3.5-5.1) Chloride Level 92 mmol/L (98-107) Carbon Dioxide Level 28 mmol/L (21-32) Anion Gap 10 (6-14) Blood Urea Nitrogen 5 mg/dL (8-26) Creatinine 0.7 mg/dL (0.7-1.3) Estimated GFR (Cockcroft-Gault) 116.2 BUN/Creatinine Ratio 7 (6-20) Glucose Level 128 mg/dL (70-99) Calcium Level 9.0 mg/dL (8.5-10.1) Magnesium Level 1.4 mg/dL (1.8-2.4) Total Bilirubin 1.1 mg/dL (0.2-1.0) Aspartate Amino Transf (AST/SGOT) 23 U/L (15-37) Alanine Aminotransferase (ALT/SGPT) 19 U/L (16-63) Alkaline Phosphatase 113 U/L (46-116) Troponin I Quantitative < 0.017 ng/mL (0.000-0.055) Total Protein 8.5 g/dL (6.4-8.2) Albumin 3.7 g/dL (3.4-5.0) Albumin/Globulin Ratio 0.8 (1.0-1.7) Lipase 121 U/L (73-393) Thyroid Stimulating Hormone (TSH) 2.832 uIU/mL (0.358-3.74) Free Thyroxine 1.21 ng/dL (0.76-1.46) Urine Collection Type Void Urine Color Yellow Urine Clarity Clear Urine pH 8.0 Urine Specific D[place] 1.010 Urine Protein Negative mg/dL (NEG-TRACE) Urine Glucose (UA) Negative mg/dL (NEG) Urine Ketones (Stick) Negative mg/dL (NEG) Urine Blood Moderate (NEG) Urine Nitrite Negative (NEG) Urine Bilirubin Negative (NEG) Urine Urobilinogen Dipstick 0.2 mg/dL (0.2 mg/dL) Urine Leukocyte Esterase Negative (NEG) Urine RBC 20-40 /HPF (0-2) Urine WBC Rare /HPF (0-4) Urine Bacteria 0 /HPF (0-FEW) VTE Prophylaxis Ordered VTE Prophylaxis Devices: No VTE Pharmacological Prophylaxi: Yes Assessment/Plan Assessment/Plan A/P: Nausea - Likely related to headache, chemo. Has been unable to take PO at home Hypomagnesemia - likely etiology of his weakness, will replace, follow daily with K Headache - CT negative for abnormality, is still recovering from meningitis, will cont acyclovir Hyponatremia - likely 2/2 volume depletion, hypovolemic, will give some fluids SIRS - does not appear to have an infectious source, will culture and hold off on antibiotics at this time. Multiple Myeloma - on revlimid. We do not carry, will consult Oncology. Has bone pain in multiple locations, will give him a moderate pain regimen HTN urgency - will need aggressive prns, cont his home meds. This could be pain related. Will repeat troponin as well Urinary retention - flomax, likely this is BPH vs neurogenic bladder, will also bladder scan, insert whitten prn FEN - Diet - general PPX - heparin FULL CODE Admit to wards, tele preferred with hypomagnesemia, at least 2 midnights. CRISSY BRYSON MD Aug 02, 2018 20:49
[2018-08-02] MEDS ORDERED: MAGNESIUM SULFATE 4GM 100 ML IV ONE (21:00)
[2018-08-02] MEDS: HEPARIN for SUB-Q USE 5,000 UNIT/ML VIAL. SQ SCH (21:59)
[2018-08-02 23:00] VITALS: BP 153/88
[2018-08-03] MEDS: PROCHLORPERAZINE 10 MG/2 ML VIAL. IV PRN ×2 (02:46→08:42)
[2018-08-03 03:08] VITALS: BP 149/88
[2018-08-03 04:43] LABS: BASO % 1 % (0-3); EOS # 0.1 x10^3/uL (0.0-0.7); EOS % 2 % (0-3); HEMATOCRIT 31.9 % (39.0-53.0); HEMOGLOBIN 11.4 g/dL (13.0-17.5); LYMPH % 27 % (24-48); MEAN CORPUSCULAR HEMOGLOBIN 34 pg (25-35); MEAN CORPUSCULAR HGB CONC 36 g/dL (31-37); MEAN CORPUSCULAR VOLUME 95 fL (79-100); MONO # 0.3 x10^3/uL (0.0-1.1); MONO % 9 % (0-9); NEUT # 2.4 x10^3uL (1.8-7.7); NEUT % 63 % (31-73); PLATELET COUNT 174 x10^3/uL (140-400); RED BLOOD COUNT 3.36 x10^6/uL (4.30-5.70); RED CELL DISTRIBUTION WIDTH 17.9 % (11.5-14.5); WHITE BLOOD COUNT 3.9 x10^3/uL (4.0-11.0)
[2018-08-03 05:10] LABS: CALCIUM 8.3 mg/dL (8.5-10.1); CREATININE 0.5 mg/dL (0.7-1.3); GFR 171.4; MAGNESIUM 2.5 mg/dL (1.8-2.4); POTASSIUM 3.4 mmol/L (3.5-5.1)
[2018-08-03] MEDS: HEPARIN for SUB-Q USE 5,000 UNIT/ML VIAL. SQ SCH ×3 (05:59→21:48)
[2018-08-03 07:00] VITALS: BP 122/72
[2018-08-03] MEDS: FLUTICASONE 50MCG/NASAL SPRAY 16GM BOTTLE. NS SCH (08:28)
[2018-08-03] MEDS: ACYCLOVIR 200 MG CAPSULE. PO SCH ×2 (08:31→21:37)
[2018-08-03] MEDS: ALLOPURINOL 300 MG TABLET. PO SCH (08:32)
[2018-08-03] MEDS: LOSARTAN POTASSIUM 50 MG TABLET. PO SCH (08:32)
[2018-08-03] MEDS: PANTOPRAZOLE 40 MG TABLET.DR. PO SCH (08:33)
[2018-08-03] MEDS: CITALOPRAM 20 MG TABLET. PO SCH (08:33)
[2018-08-03] MEDS: GABAPENTIN 400 MG CAPSULE. PO SCH ×2 (08:33→21:36)
[2018-08-03] MEDS: ASPIRIN 325 MG TABLET PO SCH (08:33)
[2018-08-03] MEDS: MELOXICAM 7.5 MG TABLET PO SCH (08:38)
[2018-08-03] MEDS: oxyCODONE IR 5 MG TABLET PO PRN ×3 (08:41→18:33)
[2018-08-03] MEDS: SENNOSIDES/DOCUSATE 8.6/50MG TABLET. PO SCH ×2 (08:49→21:37)
[2018-08-03] MEDS ORDERED: C.DIFF MED SCREEN BY RX. MC ONE (09:00)
[2018-08-03] MEDS ORDERED: hydroCHLOROthiazide 25 MG TABLET PO SCH (09:00)
[2018-08-03] MEDS ORDERED: LENALIDOMIDE 25 MG PO SCH (09:00)
--- NOTE | 2018-08-03 10:46 | CONS ---
DATE OF CONSULTATION: 08/03/2018 REQUESTING PHYSICIAN: Dr. Hari Soto. REASON FOR CONSULTATION: Multiple myeloma, on chemotherapy, now admitted with worsening generalized weakness. HISTORY OF PRESENT ILLNESS: The patient is a 58-year-old gentleman who was diagnosed with IgA kappa multiple myeloma by a bone marrow biopsy on 06/25/2018. Plasma cells comprised over 40-50% of the nucleated marrow cells. Serum protein electrophoresis on 06/18/2018 revealed an M-spike of 6.7 and immunofixation revealed IgA kappa monoclonal protein. IgA level was more than 6400 and free kappa light chains were at 1253 with a kappa lambda ratio of 417.43. Beta 2 microglobulin was elevated at 3.8 at the time of diagnosis. He was started on Decadron on 06/25/2018 at 40 mg daily for 4 days while waiting for the marrow biopsy results. After confirmation of diagnosis, he was started on chemotherapy with Velcade, Revlimid and Decadron. Velcade and Decadron was given on 07/06/2018 and Revlimid was started on 07/08/2018. After only one dose of Revlimid he had to be admitted to [facility] with fever. He responded to antibiotics and he was discharged. He then took 2 more doses of Revlimid on 07/13/2018 and 07/14/2018 and again developed fever on 07/15/2018 and was he admitted to [facility] and he was treated for meningitis. Lumbar puncture, CSF evaluation revealed a WBC of more than 4000 concerning for bacterial infection. He was admitted again on 07/25/2018 with complaints of back pain, nausea, vomiting, headaches of 1-day duration. He underwent MRI of the lumbar spine, which revealed significant degenerative disk disease, which is thought to be the etiology for the back pain. I discussed with the radiologist who felt that the myelomatous lesions were too subtle to be contributing to the back pain. I also discussed with Radiation Oncology and there was no role for radiation therapy since the etiology of the pain was mostly due to his degenerative disk disease. Chemotherapy was deferred because of above events. He was admitted to [facility] again on 08/02/2018 with generalized weakness, hypokalemia and hypomagnesemia. He also had headaches at the time of admission, thought to be due to hypertension, which have now almost resolved. PAST MEDICAL HISTORY: Hypertension, hypercholesterolemia, GERD, diverticulosis, gastritis, anxiety, tonsillectomy. SOCIAL HISTORY: He is a former smoker. 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 FAMILY HISTORY: Positive for hypertension and diabetes. REVIEW OF SYSTEMS: A 12-point review of system was performed. Pertinent positives are mentioned in the history of present illness. Rest of the system review is negative. PHYSICAL EXAMINATION: GENERAL APPEARANCE: The patient is a 58-year-old gentleman who is in no acute cardiorespiratory distress. VITAL SIGNS: Blood pressure 122/72, temperature 97.5. HEENT: Head: Atraumatic, normocephalic. Eyes: No icterus. NECK: Supple. CHEST: Bilaterally symmetrical. No crepitations or rhonchi heard. HEART: S1, S2 normal. ABDOMEN: Soft, nontender. No hepatosplenomegaly. CENTRAL NERVOUS SYSTEM: No focal deficits. LYMPHATICS: No lymphadenopathy. SKIN: No rashes. PSYCHOLOGIC: Mood and affect are appropriate. LABORATORY DATA: WBC 3.9, hemoglobin 11.4, platelet count 174. Potassium 3.4. At the time of admission, potassium was 3.4 with magnesium of 1.4. Creatinine 0.7, calcium 9.0, total protein 8.5. IgA level on 06/18/2018 was more than 6400 and on 07/28/2018 it was 686. Free kappa light chain on 06/18/2018 was 1252.3 and on 07/28/2018 it was 121.1. M-spike on 06/18/2018 was 6.7 and on 07/28/2018, it is down to 0.4 g/dL. IMPRESSION AND PLAN: 1. IgG kappa multiple myeloma. He was diagnosed on 06/25/2018. He has received one cycle of chemotherapy. Second cycle was deferred due to meningitis and generalized weakness. I have advised him to follow up with me next week for reevaluation and if he is feeling better, I will plan to initiate second cycle of chemotherapy. He is responding very well. Serum protein electrophoresis and IgA levels have significantly improved as described above. 2. Back pain. MRI of the lumbar spine on 07/26/2018 revealed degenerative disk disease, greatest at the L3-L4 and L4-L5. Multiple scattered edematous, enhancing marrow lesions were seen throughout the visualized spine and iliac bones consistent with multiple myeloma. However, these lesions are not responsible for his pain. I discussed with the radiologist. 3. Hyponatremia and hypokalemia. Continue management per primary team. 4. 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 Monitor. PHILLIP FUNEZ MD DR: MARIAM/reina JOB#: [id number] / [id number]
[2018-08-03 11:00] VITALS: BP 128/78
--- NOTE | 2018-08-03 12:01 | PDOC ---
PROGRESS NOTES Chief Complaint Chief Complaint The patient also states he has not able to urinate, although he states he does not know steadily feel the urge to do so. He does not feel that his bladder is distended. He states he has had similar symptoms in the past. He also notes constipation and moderately severe bone pain he relates to his myeloma. Found with low magnesium at 1.4 in the ED as well as sodium of 130. History of Present Illness History of Present Illness Assessment/Plan Assessment A/P: Nausea - Likely related to headache, chemo. Has been unable to take PO at home Hypomagnesemia - likely etiology of his weakness, will replace, follow daily with K Headache - CT negative for abnormality, is still recovering from meningitis, will cont acyclovir Hyponatremia - will fluid restricy SIRS - does not appear to have an infectious source, will culture and hold off on antibiotics at this time. Multiple Myeloma - on revlimid.consult Oncology. Has bone pain in multiple locations, will give him a moderate pain regimen HTN urgency - will need aggressive prns, cont his home meds. This could be pain related. Will repeat troponin as well Urinary retention - flomax, likely this is BPH vs neurogenic bladder, will also bladder scan, insert whitten prn PPX - heparin FULL CODE tele with hypomagnesemia, at least 2 midnights. Vitals Vitals Vital Signs Date Time Temp Pulse Resp B/P (MAP) Pulse Ox O2 Delivery O2 Flow Rate FiO2 08/03/18 11:00 98.4 82 18 128/78 (95) 97 Room Air 98.4 Physical Exam General: Alert, Oriented X3, Cooperative, mild distress Heart: Regular rate Lungs: Clear Abdomen: Normal bowel sounds, Soft, No tenderness, No hepatosplenomegaly, No masses Extremities: No clubbing, No cyanosis, No edema, Normal pulses, No tenderness/ swelling Skin: No rashes, No breakdown, No significant lesion Labs LABS CT head without intravenous contrast History: Weakness. Headache. Comparison: CT head July 15, 2018. Technique: Axial images are obtained of the head from the skull base through the vertex without IV contrast. Exposure: One or more of the following individualized dose reduction techniques were utilized for this examination: 1. Automated exposure control 2. Adjustment of the mA and/or kV according to patient size 3. Use of iterative reconstruction technique Findings: The ventricles are appropriate in size, shape, and location for the patient's age. No obvious intracranial mass, mass-effect, midline shift, hemorrhage or obvious acute infarction is identified. Basilar cisterns are patent. Bone windows demonstrate no acute calvarial abnormality. The visualized paranasal sinuses appear clear. Impression: 1. No acute intracranial process. Electronically signed by: Isma Gardiner MD (08/02/2018 2:16 PM) [id number] Laboratory Tests Test 08/02/18 13:23 08/02/18 14:40 08/03/18 03:30 White Blood Count 4.6 x10^3/uL (4.0-11.0) 3.9 x10^3/uL (4.0-11.0) Red Blood Count 3.41 x10^6/uL (4.30-5.70) 3.36 x10^6/uL (4.30-5.70) Hemoglobin 11.6 g/dL (13.0-17.5) 11.4 g/dL (13.0-17.5) Hematocrit 33.0 % (39.0-53.0) 31.9 % (39.0-53.0) Mean Corpuscular Volume 97 fL (79-100) 95 fL (79-100) Mean Corpuscular Hemoglobin 34 pg (25-35) 34 pg (25-35) Mean Corpuscular Hemoglobin Concent 35 g/dL (31-37) 36 g/dL (31-37) Red Cell Distribution Width 17.9 % (11.5-14.5) 17.9 % (11.5-14.5) Platelet Count 191 x10^3/uL (140-400) 174 x10^3/uL (140-400) Neutrophils (%) (Auto) 72 % (31-73) 63 % (31-73) Lymphocytes (%) (Auto) 20 % (24-48) 27 % (24-48) Monocytes (%) (Auto) 7 % (0-9) 9 % (0-9) Eosinophils (%) (Auto) 1 % (0-3) 2 % (0-3) Basophils (%) (Auto) 1 % (0-3) 1 % (0-3) Neutrophils # (Auto) 3.3 x10^3uL (1.8-7.7) 2.4 x10^3uL (1.8-7.7) Lymphocytes # (Auto) 0.9 x10^3/uL (1.0-4.8) 1.0 x10^3/uL (1.0-4.8) Monocytes # (Auto) 0.3 x10^3/uL (0.0-1.1) 0.3 x10^3/uL (0.0-1.1) Eosinophils # (Auto) 0.0 x10^3/uL (0.0-0.7) 0.1 x10^3/uL (0.0-0.7) Basophils # (Auto) 0.0 x10^3/uL (0.0-0.2) 0.0 x10^3/uL (0.0-0.2) Sodium Level 130 mmol/L (136-145) 125 mmol/L (136-145) Potassium Level 3.4 mmol/L (3.5-5.1) 3.4 mmol/L (3.5-5.1) Chloride Level 92 mmol/L (98-107) 89 mmol/L (98-107) Carbon Dioxide Level 28 mmol/L (21-32) 25 mmol/L (21-32) Anion Gap 10 (6-14) 11 (6-14) Blood Urea Nitrogen 5 mg/dL (8-26) 6 mg/dL (8-26) Creatinine 0.7 mg/dL (0.7-1.3) 0.5 mg/dL (0.7-1.3) Estimated GFR (Cockcroft-Gault) 116.2 171.4 BUN/Creatinine Ratio 7 (6-20) Glucose Level 128 mg/dL (70-99) 132 mg/dL (70-99) Calcium Level 9.0 mg/dL (8.5-10.1) 8.3 mg/dL (8.5-10.1) Phosphorus Level 3.7 mg/dL (2.6-4.7) Magnesium Level 1.4 mg/dL (1.8-2.4) 2.5 mg/dL (1.8-2.4) Total Bilirubin 1.1 mg/dL (0.2-1.0) Aspartate Amino Transf (AST/SGOT) 23 U/L (15-37) Alanine Aminotransferase (ALT/SGPT) 19 U/L (16-63) Alkaline Phosphatase 113 U/L (46-116) Troponin I Quantitative < 0.017 ng/mL (0.000-0.055) < 0.017 ng/mL (0.000-0.055) Total Protein 8.5 g/dL (6.4-8.2) Albumin 3.7 g/dL (3.4-5.0) Albumin/Globulin Ratio 0.8 (1.0-1.7) Lipase 121 U/L (73-393) Thyroid Stimulating Hormone (TSH) 2.832 uIU/mL (0.358-3.74) Free Thyroxine 1.21 ng/dL (0.76-1.46) Urine Collection Type Void Urine Color Yellow Urine Clarity Clear Urine pH 8.0 Urine Specific [place] 1.010 Urine Protein Negative mg/dL (NEG-TRACE) Urine Glucose (UA) Negative mg/dL (NEG) Urine Ketones (Stick) Negative mg/dL (NEG) Urine Blood Moderate (NEG) Urine Nitrite Negative (NEG) Urine Bilirubin Negative (NEG) Urine Urobilinogen Dipstick 0.2 mg/dL (0.2 mg/dL) Urine Leukocyte Esterase Negative (NEG) Urine RBC 20-40 /HPF (0-2) Urine WBC Rare /HPF (0-4) Urine Bacteria 0 /HPF (0-FEW) Assessment and Plan Assessmemt and Plan Problems Medical Problems: (1) Hypomagnesemia Status: Acute (2) Hyponatremia Status: Acute (3) Microscopic hematuria Status: Acute (4) Multiple myeloma Status: Acute (5) Weakness Status: Acute Comment Review of Relevant I have reviewed the following items cristina (where applicable) has been applied. Labs Laboratory Tests Test 08/02/18 13:23 08/02/18 14:40 08/03/18 03:30 White Blood Count 4.6 x10^3/uL (4.0-11.0) 3.9 x10^3/uL (4.0-11.0) Red Blood Count 3.41 x10^6/uL (4.30-5.70) 3.36 x10^6/uL (4.30-5.70) Hemoglobin 11.6 g/dL (13.0-17.5) 11.4 g/dL (13.0-17.5) Hematocrit 33.0 % (39.0-53.0) 31.9 % (39.0-53.0) Mean Corpuscular Volume 97 fL (79-100) 95 fL (79-100) Mean Corpuscular Hemoglobin 34 pg (25-35) 34 pg (25-35) Mean Corpuscular Hemoglobin Concent 35 g/dL (31-37) 36 g/dL (31-37) Red Cell Distribution Width 17.9 % (11.5-14.5) 17.9 % (11.5-14.5) Platelet Count 191 x10^3/uL (140-400) 174 x10^3/uL (140-400) Neutrophils (%) (Auto) 72 % (31-73) 63 % (31-73) Lymphocytes (%) (Auto) 20 % (24-48) 27 % (24-48) Monocytes (%) (Auto) 7 % (0-9) 9 % (0-9) Eosinophils (%) (Auto) 1 % (0-3) 2 % (0-3) Basophils (%) (Auto) 1 % (0-3) 1 % (0-3) Neutrophils # (Auto) 3.3 x10^3uL (1.8-7.7) 2.4 x10^3uL (1.8-7.7) Lymphocytes # (Auto) 0.9 x10^3/uL (1.0-4.8) 1.0 x10^3/uL (1.0-4.8) Monocytes # (Auto) 0.3 x10^3/uL (0.0-1.1) 0.3 x10^3/uL (0.0-1.1) Eosinophils # (Auto) 0.0 x10^3/uL (0.0-0.7) 0.1 x10^3/uL (0.0-0.7) Basophils # (Auto) 0.0 x10^3/uL (0.0-0.2) 0.0 x10^3/uL (0.0-0.2) Sodium Level 130 mmol/L (136-145) 125 mmol/L (136-145) Potassium Level 3.4 mmol/L (3.5-5.1) 3.4 mmol/L (3.5-5.1) Chloride Level 92 mmol/L (98-107) 89 mmol/L (98-107) Carbon Dioxide Level 28 mmol/L (21-32) 25 mmol/L (21-32) Anion Gap 10 (6-14) 11 (6-14) Blood Urea Nitrogen 5 mg/dL (8-26) 6 mg/dL (8-26) Creatinine 0.7 mg/dL (0.7-1.3) 0.5 mg/dL (0.7-1.3) Estimated GFR (Cockcroft-Gault) 116.2 171.4 BUN/Creatinine Ratio 7 (6-20) Glucose Level 128 mg/dL (70-99) 132 mg/dL (70-99) Calcium Level 9.0 mg/dL (8.5-10.1) 8.3 mg/dL (8.5-10.1) Phosphorus Level 3.7 mg/dL (2.6-4.7) Magnesium Level 1.4 mg/dL (1.8-2.4) 2.5 mg/dL (1.8-2.4) Total Bilirubin 1.1 mg/dL (0.2-1.0) Aspartate Amino Transf (AST/SGOT) 23 U/L (15-37) Alanine Aminotransferase (ALT/SGPT) 19 U/L (16-63) Alkaline Phosphatase 113 U/L (46-116) Troponin I Quantitative < 0.017 ng/mL (0.000-0.055) < 0.017 ng/mL (0.000-0.055) Total Protein 8.5 g/dL (6.4-8.2) Albumin 3.7 g/dL (3.4-5.0) Albumin/Globulin Ratio 0.8 (1.0-1.7) Lipase 121 U/L (73-393) Thyroid Stimulating Hormone (TSH) 2.832 uIU/mL (0.358-3.74) Free Thyroxine 1.21 ng/dL (0.76-1.46) Urine Collection Type Void Urine Color Yellow Urine Clarity Clear Urine pH 8.0 Urine Specific [place] 1.010 Urine Protein Negative mg/dL (NEG-TRACE) Urine Glucose (UA) Negative mg/dL (NEG) Urine Ketones (Stick) Negative mg/dL (NEG) Urine Blood Moderate (NEG) Urine Nitrite Negative (NEG) Urine Bilirubin Negative (NEG) Urine Urobilinogen Dipstick 0.2 mg/dL (0.2 mg/dL) Urine Leukocyte Esterase Negative (NEG) Urine RBC 20-40 /HPF (0-2) Urine WBC Rare /HPF (0-4) Urine Bacteria 0 /HPF (0-FEW) Laboratory Tests Test 08/02/18 13:23 08/02/18 14:40 08/03/18 03:30 White Blood Count 4.6 x10^3/uL (4.0-11.0) 3.9 x10^3/uL (4.0-11.0) Red Blood Count 3.41 x10^6/uL (4.30-5.70) 3.36 x10^6/uL (4.30-5.70) Hemoglobin 11.6 g/dL (13.0-17.5) 11.4 g/dL (13.0-17.5) Hematocrit 33.0 % (39.0-53.0) 31.9 % (39.0-53.0) Mean Corpuscular Volume 97 fL (79-100) 95 fL (79-100) Mean Corpuscular Hemoglobin 34 pg (25-35) 34 pg (25-35) Mean Corpuscular Hemoglobin Concent 35 g/dL (31-37) 36 g/dL (31-37) Red Cell Distribution Width 17.9 % (11.5-14.5) 17.9 % (11.5-14.5) Platelet Count 191 x10^3/uL (140-400) 174 x10^3/uL (140-400) Neutrophils (%) (Auto) 72 % (31-73) 63 % (31-73) Lymphocytes (%) (Auto) 20 % (24-48) 27 % (24-48) Monocytes (%) (Auto) 7 % (0-9) 9 % (0-9) Eosinophils (%) (Auto) 1 % (0-3) 2 % (0-3) Basophils (%) (Auto) 1 % (0-3) 1 % (0-3) Neutrophils # (Auto) 3.3 x10^3uL (1.8-7.7) 2.4 x10^3uL (1.8-7.7) Lymphocytes # (Auto) 0.9 x10^3/uL (1.0-4.8) 1.0 x10^3/uL (1.0-4.8) Monocytes # (Auto) 0.3 x10^3/uL (0.0-1.1) 0.3 x10^3/uL (0.0-1.1) Eosinophils # (Auto) 0.0 x10^3/uL (0.0-0.7) 0.1 x10^3/uL (0.0-0.7) Basophils # (Auto) 0.0 x10^3/uL (0.0-0.2) 0.0 x10^3/uL (0.0-0.2) Sodium Level 130 mmol/L (136-145) 125 mmol/L (136-145) Potassium Level 3.4 mmol/L (3.5-5.1) 3.4 mmol/L (3.5-5.1) Chloride Level 92 mmol/L (98-107) 89 mmol/L (98-107) Carbon Dioxide Level 28 mmol/L (21-32) 25 mmol/L (21-32) Anion Gap 10 (6-14) 11 (6-14) Blood Urea Nitrogen 5 mg/dL (8-26) 6 mg/dL (8-26) Creatinine 0.7 mg/dL (0.7-1.3) 0.5 mg/dL (0.7-1.3) Estimated GFR (Cockcroft-Gault) 116.2 171.4 BUN/Creatinine Ratio 7 (6-20) Glucose Level 128 mg/dL (70-99) 132 mg/dL (70-99) Calcium Level 9.0 mg/dL (8.5-10.1) 8.3 mg/dL (8.5-10.1) Phosphorus Level 3.7 mg/dL (2.6-4.7) Magnesium Level 1.4 mg/dL (1.8-2.4) 2.5 mg/dL (1.8-2.4) Total Bilirubin 1.1 mg/dL (0.2-1.0) Aspartate Amino Transf (AST/SGOT) 23 U/L (15-37) Alanine Aminotransferase (ALT/SGPT) 19 U/L (16-63) Alkaline Phosphatase 113 U/L (46-116) Troponin I Quantitative < 0.017 ng/mL (0.000-0.055) < 0.017 ng/mL (0.000-0.055) Total Protein 8.5 g/dL (6.4-8.2) Albumin 3.7 g/dL (3.4-5.0) Albumin/Globulin Ratio 0.8 (1.0-1.7) Lipase 121 U/L (73-393) Thyroid Stimulating Hormone (TSH) 2.832 uIU/mL (0.358-3.74) Free Thyroxine 1.21 ng/dL (0.76-1.46) Urine Collection Type Void Urine Color Yellow Urine Clarity Clear Urine pH 8.0 Urine Specific [place] 1.010 Urine Protein Negative mg/dL (NEG-TRACE) Urine Glucose (UA) Negative mg/dL (NEG) Urine Ketones (Stick) Negative mg/dL (NEG) Urine Blood Moderate (NEG) Urine Nitrite Negative (NEG) Urine Bilirubin Negative (NEG) Urine Urobilinogen Dipstick 0.2 mg/dL (0.2 mg/dL) Urine Leukocyte Esterase Negative (NEG) Urine RBC 20-40 /HPF (0-2) Urine WBC Rare /HPF (0-4) Urine Bacteria 0 /HPF (0-FEW) Medications Current Medications Sodium Chloride 1,000 ml @ 1,000 mls/hr Q1H IV Last administered on at 14:04; Start 08/02/18 at 13:26; Stop 08/02/18 at 14:25; Status DC Fentanyl Citrate (Fentanyl 2ml Vial) 50 mcg 1X ONCE IV Last administered on at 15:13; Start 08/02/18 at 15:15; Stop 08/02/18 at 15:16; Status DC Ondansetron HCl (Zofran) 4 mg 1X ONCE IV Last administered on 08/02/18at 15:12 ; Start 08/02/18 at 15:15; Stop 08/02/18 at 15:16; Status DC Magnesium Sulfate 50 ml @ 25 mls/hr 1X ONCE IV Last administered on at 17:24; Start 08/02/18 at 17:00; Stop 08/02/18 at 18:59; Status DC Fentanyl Citrate (Fentanyl 2ml Vial) 50 mcg 1X ONCE IV Last administered on at 17:04; Start 08/02/18 at 17:00; Stop 08/02/18 at 17:01; Status DC Ondansetron HCl (Zofran) 4 mg PRN Q8HRS PRN IV NAUSEA/VOMITING; Start at 17:00; Stop 08/02/18 at 20:53; Status DC Ondansetron HCl (Zofran) 4 mg 1X ONCE IV Last administered on 08/02/18at 17:20 ; Start 08/02/18 at 17:15; Stop 08/02/18 at 17:16; Status DC Ondansetron HCl (Zofran) 4 mg PRN Q6HRS PRN IV NAUSEA/VOMITING, 2ND CHOICE; Start 08/02/18 at 20:15 Prochlorperazine Edisylate (Compazine) 10 mg PRN Q6HRS PRN IV NAUSEA/VOMITING, 1ST CHOICE Last administered on 08/03/18at 08:42; Start 08/02/18 at 20:15 Morphine Sulfate (Morphine Sulfate) 10 mg PRN Q4HRS PRN IV PAIN Last administered on 08/02/18at 20:34; Start 08/02/18 at 20:15; Stop 08/02/18 at 22 :03; Status DC Oxycodone HCl (Roxicodone) 5 mg PRN Q4HRS PRN PO MILD PAIN, 2ND CHOICE Last administered on 08/03/18at 08:41; Start 08/02/18 at 20:15 Oxycodone HCl (Roxicodone) 10 mg PRN Q4HRS PRN PO MODERATE PAIN, SEVERE PAIN; Start 08/02/18 at 20:15 Ketorolac Tromethamine (Toradol 30mg Vial) 30 mg PRN Q6HRS PRN IV PAIN; Start 08/02/18 at 20:15; Stop 08/07/18 at 20:14 Acetaminophen (Tylenol) 650 mg PRN Q6HRS PRN PO Headaches, Temp > 101.5F; Start 08/02/18 at 20:15 Senna/Docusate Sodium (Senna Plus) 1 tab BID PO ; Start 08/02/18 at 21:00 Lactulose (Lactulose) 20 gm PRN Q12HR PRN PO CONSTIPATION; Start 08/02/18 at 20:15 Bisacodyl (Dulcolax Supp) 10 mg PRN DAILY PRN [place] CONSTIPATION; Start 08/02/18 at 20:15 Heparin Sodium (Porcine) (Heparin Sodium) 5,000 unit Q8HRS SQ Last administered on 08/03/18at 05:59; Start 08/02/18 at 22:00 Allopurinol (Zyloprim) 300 mg DAILY PO Last administered on 08/03/18at 08:32; Start 08/03/18 at 09:00 Aspirin (Debbie Aspirin) 325 mg DAILY PO Last administered on 08/03/18 08:33; Start 08/03/18 at 09:00 Tamsulosin HCl (Flomax) 0.4 mg QHS PO ; Start 08/02/18 at 21:00 Acyclovir (Zovirax) 800 mg BID PO Last administered on 08/03/18at 08:31; Start 08/02/18 at 21:00 Citalopram Hydrobromide (CeleXA) 20 mg DAILY PO Last administered on 08:33; Start 08/03/18 at 09:00 Fluticasone Propionate (Flonase) 2 spray DAILY NS ; Start 08/03/18 at 09:00 Gabapentin (Neurontin) 800 mg BID PO Last administered on 08/03/18at 08:33; Start 08/02/18 at 21:00 Losartan Potassium (Cozaar) 100 mg DAILY PO Last administered on 08/03/18at 08: 32; Start 08/03/18 at 09:00 Meloxicam (Mobic) 7.5 mg DAILY PO Last administered on 08/03/18at 08:38; Start 08/03/18 at 09:00 Pantoprazole Sodium (Protonix) 40 mg DAILYAC PO Last administered on at 08:33; Start 08/03/18 at 07:30 Magnesium Sulfate/ Dextrose 100 ml @ 25 mls/hr 1X ONCE IV Last administered on 08/02/18at 21:55; Start 08/02/18 at 21:00; Stop 08/03/18 at 00:59; Status DC Labetalol HCl (Normodyne Iv Push) 10 mg PRN Q4HRS PRN IVP HTN, SEE COMMENTS, 2ND CHOICE; Start 08/02/18 at 20:30 Hydralazine HCl (Apresoline) 10 mg PRN TID PO ; Start 08/02/18 at 20:30 Enalaprilat (Vasotec Inj) 1.25 mg PRN Q6HRS PRN IVP HTN, SEE COMMENTS, 1ST CHOICE; Start 08/02/18 at 20:30 Hydrochlorothiazide (Hydrodiuril) 25 mg DAILY PO Last administered on at 08:31; Start 08/03/18 at 09:00 Non-Formulary Medication 1 ea DAILY PO ; Start 08/03/18 at 09:00 Morphine Sulfate (Morphine Sulfate) 10 mg PRN Q4HRS PRN IV SEVERE PAIN; Start 08/02/18 at 22:15 Pharmacy Consult (C.diff Med Screen By Rx) 1 each 1X ONCE [facility] ; Start 08/03/18 at 09:00; Stop 08/03/18 at 09:01; Status DC Active Scripts Active Gabapentin 300 Mg Capsule 800 Mg PO BID Flomax (Tamsulosin Hcl) 0.4 Mg Cap.er.24h 0.4 Mg PO QHS Reported Revlimid (Lenalidomide) 25 Mg Capsule 25 Mg PO Dexamethasone 4 Mg Tablet 40 Mg PO WEEKLY Acyclovir 800 Mg Tablet 1 Tab PO BID Aspirin 325 Mg Tablet 1 Tab PO DAILY Hyzaar 100-25 Tablet (Losartan/Hydrochlorothiazide) 1 Each Tablet 1 Each PO DAILY Hydrocodone-Apap 5-325 (Hydrocodone Bit/Acetaminophen) 1 Each Tablet 1 Tab PO PRN Q6HRS PRN Escitalopram Oxalate 10 Mg Tablet 10 Mg PO DAILY Flonase Allergy Relief (Fluticasone Propionate) 9.9 Ml Vernalis.susp 2 Sprays NS DAILY Meloxicam 7.5 Mg Tablet 7.5 Mg PO DAILY Prilosec Otc (Omeprazole Magnesium) 20 Mg Tablet.dr 40 Mg PO DAILY Allopurinol 300 Mg Tablet 300 Mg PO DAILY Vitals/I & O Vital Sign - Last 24 Hours 08/02/18 08/02/18 08/02/18 08/02/18 13:04 14:00 14:05 14:35 Temp 97.8 97.8 Pulse 90 80 78 86 Resp 20 18 17 21 B/P (MAP) 169/121 (137) Pulse Ox 99 96 97 98 O2 Delivery Room Air 08/02/18 08/02/18 08/02/18 08/02/18 15:05 15:13 15:35 15:43 Pulse 70 66 Resp 20 20 18 16 Pulse Ox 96 97 98 95 O2 Delivery Room Air Room Air 08/02/18 08/02/18 08/02/18 08/02/18 15:45 16:05 16:35 17:03 Pulse 82 84 90 78 Resp 26 20 20 17 Pulse Ox 98 98 99 08/02/18 08/02/18 08/02/18 08/02/18 17:04 17:05 17:09 17:29 Pulse 78 73 Resp 16 16 18 18 Pulse Ox 99 100 99 O2 Delivery Room Air Room Air 08/02/18 08/02/18 08/02/18 08/02/18 18:28 19:00 19:00 19:30 Temp 96.3 96.3 Pulse 76 69 77 76 Resp 16 20 18 18 B/P (MAP) 176/100 (125) Pulse Ox 97 95 99 99 O2 Delivery Room Air 08/02/18 08/02/18 08/02/18 08/02/18 19:30 19:45 21:04 23:00 Temp 97.6 97.6 Pulse 78 85 Resp 16 20 B/P (MAP) 153/88 (109) Pulse Ox 98 99 93 O2 Delivery Room Air Room Air 08/03/18 08/03/18 08/03/18 08/03/18 03:08 07:00 08:00 08:32 Temp 97.4 97.5 97.4 97.5 Pulse 70 78 78 Resp 20 18 B/P (MAP) 149/88 (108) 122/72 (89) 122/72 Pulse Ox 95 97 O2 Delivery Room Air Room Air Room Air 08/03/18 08/03/18 08/03/18 08:41 10:00 11:00 Temp 98.4 98.4 Pulse 82 Resp 18 B/P (MAP) 128/78 (95) Pulse Ox 97 97 O2 Delivery Room Air Room Air Room Air Intake and Output 08/02/18 08/02/18 08/03/18 15:00 23:00 07:00 Intake Total 1000 ml Output Total 700 ml Balance 1000 ml -700 ml BARBRA ANDREA MD Aug 03, 2018 12:01
[2018-08-03 14:28] VITALS: BP 141/73
[2018-08-03 19:00] VITALS: BP 123/77
[2018-08-03] MEDS: TAMSULOSIN 0.4 MG CAP.ER.24H. PO SCH (21:37)
[2018-08-03] MEDS: MORPHINE SULFATE 10 MG/ML VIAL. IV PRN (22:47)
[2018-08-03 23:00] VITALS: BP 109/51
[2018-08-04] MEDS: oxyCODONE IR 5 MG TABLET PO PRN ×4 (00:03→19:17)
[2018-08-04 03:00] VITALS: BP 128/72
[2018-08-04] MEDS: HEPARIN for SUB-Q USE 5,000 UNIT/ML VIAL. SQ SCH ×3 (06:25→21:36)
[2018-08-04 07:00] VITALS: BP 134/86
[2018-08-04] MEDS: PROCHLORPERAZINE 10 MG/2 ML VIAL. IV PRN (07:59)
[2018-08-04] MEDS: PANTOPRAZOLE 40 MG TABLET.DR. PO SCH (08:05)
[2018-08-04 08:23] LABS: BASO % 1 % (0-3); EOS # 0.1 x10^3/uL (0.0-0.7); EOS % 2 % (0-3); HEMATOCRIT 32.8 % (39.0-53.0); HEMOGLOBIN 11.7 g/dL (13.0-17.5); LYMPH # 0.9 x10^3/uL (1.0-4.8); LYMPH % 32 % (24-48); MEAN CORPUSCULAR HEMOGLOBIN 34 pg (25-35); MEAN CORPUSCULAR HGB CONC 36 g/dL (31-37); MEAN CORPUSCULAR VOLUME 95 fL (79-100); MONO # 0.2 x10^3/uL (0.0-1.1); MONO % 8 % (0-9); NEUT # 1.7 x10^3uL (1.8-7.7); NEUT % 58 % (31-73); PLATELET COUNT 182 x10^3/uL (140-400); RED BLOOD COUNT 3.46 x10^6/uL (4.30-5.70)
[2018-08-04 08:36] LABS: CALCIUM 8.2 mg/dL (8.5-10.1); CREATININE 0.6 mg/dL (0.7-1.3); GFR 138.9; MAGNESIUM 1.9 mg/dL (1.8-2.4); POTASSIUM 3.5 mmol/L (3.5-5.1)
[2018-08-04] MEDS: FLUTICASONE 50MCG/NASAL SPRAY 16GM BOTTLE. NS SCH (09:00)
[2018-08-04] MEDS: GABAPENTIN 400 MG CAPSULE. PO SCH ×2 (10:06→21:35)
[2018-08-04] MEDS: ASPIRIN 325 MG TABLET PO SCH (10:06)
[2018-08-04] MEDS: ACYCLOVIR 200 MG CAPSULE. PO SCH ×2 (10:06→21:35)
[2018-08-04] MEDS: LOSARTAN POTASSIUM 50 MG TABLET. PO SCH (10:07)
[2018-08-04] MEDS: CITALOPRAM 20 MG TABLET. PO SCH (10:07)
[2018-08-04] MEDS: MELOXICAM 7.5 MG TABLET PO SCH (10:08)
[2018-08-04] MEDS: ALLOPURINOL 300 MG TABLET. PO SCH (10:08)
[2018-08-04] MEDS: SENNOSIDES/DOCUSATE 8.6/50MG TABLET. PO SCH ×2 (10:08→21:35)
--- NOTE | 2018-08-04 10:31 | PDOC ---
PROGRESS NOTES Chief Complaint Chief Complaint drinking less fluid, moderately severe bone pain he relates to his myeloma. Found with low magnesium at 1.4 in the ED as well as sodium of 130. History of Present Illness History of Present Illness Assessment/Plan Assessment A/P: Nausea - Likely related to headache, chemo. Has been unable to take PO at home Hypomagnesemia - likely etiology of his weakness, will replace, follow daily with K Headache - CT negative for abnormality, is still recovering from meningitis, will cont acyclovir Hyponatremia - will fluid restrict may be SIADH, CHK URINE NA, SERUM OSMOLALITY SIRS - does not appear to have an infectious source, will culture and hold off on antibiotics at this time. Multiple Myeloma - on revlimid.consult Oncology. Has bone pain in multiple locations, will give him a moderate pain regimen HTN urgency - will need aggressive prns, cont his home meds. This could be pain related. Will repeat troponin as well Urinary retention - flomax, likely this is BPH vs neurogenic bladder, PPX - heparin FULL CODE tele with hypomagnesemia, at least 2 midnights. Vitals Vitals Vital Signs Date Time Temp Pulse Resp B/P (MAP) Pulse Ox O2 Delivery O2 Flow Rate FiO2 08/04/18 10:07 82 134/86 08/04/18 07:00 97.7 18 98 Room Air 97.7 Physical Exam General: Alert, Oriented X3, Cooperative, No acute distress, mild distress Heart: Regular rate, Normal S1, Normal S2 Lungs: Clear Abdomen: Normal bowel sounds, Soft, No tenderness, No hepatosplenomegaly, No masses Extremities: No clubbing, No cyanosis, No edema, Normal pulses, No tenderness/ swelling Skin: No rashes, No breakdown, No significant lesion Labs LABS Laboratory Tests Test 08/04/18 07:22 White Blood Count 3.0 x10^3/uL (4.0-11.0) Red Blood Count 3.46 x10^6/uL (4.30-5.70) Hemoglobin 11.7 g/dL (13.0-17.5) Hematocrit 32.8 % (39.0-53.0) Mean Corpuscular Volume 95 fL (79-100) Mean Corpuscular Hemoglobin 34 pg (25-35) Mean Corpuscular Hemoglobin Concent 36 g/dL (31-37) Red Cell Distribution Width 18.0 % (11.5-14.5) Platelet Count 182 x10^3/uL (140-400) Neutrophils (%) (Auto) 58 % (31-73) Lymphocytes (%) (Auto) 32 % (24-48) Monocytes (%) (Auto) 8 % (0-9) Eosinophils (%) (Auto) 2 % (0-3) Basophils (%) (Auto) 1 % (0-3) Neutrophils # (Auto) 1.7 x10^3uL (1.8-7.7) Lymphocytes # (Auto) 0.9 x10^3/uL (1.0-4.8) Monocytes # (Auto) 0.2 x10^3/uL (0.0-1.1) Eosinophils # (Auto) 0.1 x10^3/uL (0.0-0.7) Basophils # (Auto) 0.0 x10^3/uL (0.0-0.2) Sodium Level 121 mmol/L (136-145) Potassium Level 3.5 mmol/L (3.5-5.1) Chloride Level 86 mmol/L (98-107) Carbon Dioxide Level 25 mmol/L (21-32) Anion Gap 10 (6-14) Blood Urea Nitrogen 9 mg/dL (8-26) Creatinine 0.6 mg/dL (0.7-1.3) Estimated GFR (Cockcroft-Gault) 138.9 Glucose Level 125 mg/dL (70-99) Calcium Level 8.2 mg/dL (8.5-10.1) Magnesium Level 1.9 mg/dL (1.8-2.4) Assessment and Plan Assessmemt and Plan Problems Medical Problems: (1) Hypomagnesemia Status: Acute (2) Hyponatremia Status: Acute (3) Microscopic hematuria Status: Acute (4) Multiple myeloma Status: Acute (5) Weakness Status: Acute Comment Review of Relevant I have reviewed the following items cristina (where applicable) has been applied. Labs Laboratory Tests Test 08/02/18 13:23 08/02/18 14:40 08/03/18 03:30 08/04/18 07:22 White Blood Count 4.6 x10^3/uL (4.0-11.0) 3.9 x10^3/uL (4.0-11.0) 3.0 x10^3/uL (4.0-11.0) Red Blood Count 3.41 x10^6/uL (4.30-5.70) 3.36 x10^6/uL (4.30-5.70) 3.46 x10^6/uL (4.30-5.70) Hemoglobin 11.6 g/dL (13.0-17.5) 11.4 g/dL (13.0-17.5) 11.7 g/dL (13.0-17.5) Hematocrit 33.0 % (39.0-53.0) 31.9 % (39.0-53.0) 32.8 % (39.0-53.0) Mean Corpuscular Volume 97 fL (79-100) 95 fL (79-100) 95 fL (79-100) Mean Corpuscular Hemoglobin 34 pg (25-35) 34 pg (25-35) 34 pg (25-35) Mean Corpuscular Hemoglobin Concent 35 g/dL (31-37) 36 g/dL (31-37) 36 g/dL (31-37) Red Cell Distribution Width 17.9 % (11.5-14.5) 17.9 % (11.5-14.5) 18.0 % (11.5-14.5) Platelet Count 191 x10^3/uL (140-400) 174 x10^3/uL (140-400) 182 x10^3/uL (140-400) Neutrophils (%) (Auto) 72 % (31-73) 63 % (31-73) 58 % (31-73) Lymphocytes (%) (Auto) 20 % (24-48) 27 % (24-48) 32 % (24-48) Monocytes (%) (Auto) 7 % (0-9) 9 % (0-9) 8 % (0-9) Eosinophils (%) (Auto) 1 % (0-3) 2 % (0-3) 2 % (0-3) Basophils (%) (Auto) 1 % (0-3) 1 % (0-3) 1 % (0-3) Neutrophils # (Auto) 3.3 x10^3uL (1.8-7.7) 2.4 x10^3uL (1.8-7.7) 1.7 x10^3uL (1.8-7.7) Lymphocytes # (Auto) 0.9 x10^3/uL (1.0-4.8) 1.0 x10^3/uL (1.0-4.8) 0.9 x10^3/uL (1.0-4.8) Monocytes # (Auto) 0.3 x10^3/uL (0.0-1.1) 0.3 x10^3/uL (0.0-1.1) 0.2 x10^3/uL (0.0-1.1) Eosinophils # (Auto) 0.0 x10^3/uL (0.0-0.7) 0.1 x10^3/uL (0.0-0.7) 0.1 x10^3/uL (0.0-0.7) Basophils # (Auto) 0.0 x10^3/uL (0.0-0.2) 0.0 x10^3/uL (0.0-0.2) 0.0 x10^3/uL (0.0-0.2) Sodium Level 130 mmol/L (136-145) 125 mmol/L (136-145) 121 mmol/L (136-145) Potassium Level 3.4 mmol/L (3.5-5.1) 3.4 mmol/L (3.5-5.1) 3.5 mmol/L (3.5-5.1) Chloride Level 92 mmol/L (98-107) 89 mmol/L (98-107) 86 mmol/L (98-107) Carbon Dioxide Level 28 mmol/L (21-32) 25 mmol/L (21-32) 25 mmol/L (21-32) Anion Gap 10 (6-14) 11 (6-14) 10 (6-14) Blood Urea Nitrogen 5 mg/dL (8-26) 6 mg/dL (8-26) 9 mg/dL (8-26) Creatinine 0.7 mg/dL (0.7-1.3) 0.5 mg/dL (0.7-1.3) 0.6 mg/dL (0.7-1.3) Estimated GFR (Cockcroft-Gault) 116.2 171.4 138.9 BUN/Creatinine Ratio 7 (6-20) Glucose Level 128 mg/dL (70-99) 132 mg/dL (70-99) 125 mg/dL (70-99) Calcium Level 9.0 mg/dL (8.5-10.1) 8.3 mg/dL (8.5-10.1) 8.2 mg/dL (8.5-10.1) Phosphorus Level 3.7 mg/dL (2.6-4.7) Magnesium Level 1.4 mg/dL (1.8-2.4) 2.5 mg/dL (1.8-2.4) 1.9 mg/dL (1.8-2.4) Total Bilirubin 1.1 mg/dL (0.2-1.0) Aspartate Amino Transf (AST/SGOT) 23 U/L (15-37) Alanine Aminotransferase (ALT/SGPT) 19 U/L (16-63) Alkaline Phosphatase 113 U/L (46-116) Troponin I Quantitative < 0.017 ng/mL (0.000-0.055) < 0.017 ng/mL (0.000-0.055) Total Protein 8.5 g/dL (6.4-8.2) Albumin 3.7 g/dL (3.4-5.0) Albumin/Globulin Ratio 0.8 (1.0-1.7) Lipase 121 U/L (73-393) Thyroid Stimulating Hormone (TSH) 2.832 uIU/mL (0.358-3.74) Free Thyroxine 1.21 ng/dL (0.76-1.46) Urine Collection Type Void Urine Color Yellow Urine Clarity Clear Urine pH 8.0 Urine Specific Alpine 1.010 Urine Protein Negative mg/dL (NEG-TRACE) Urine Glucose (UA) Negative mg/dL (NEG) Urine Ketones (Stick) Negative mg/dL (NEG) Urine Blood Moderate (NEG) Urine Nitrite Negative (NEG) Urine Bilirubin Negative (NEG) Urine Urobilinogen Dipstick 0.2 mg/dL (0.2 mg/dL) Urine Leukocyte Esterase Negative (NEG) Urine RBC 20-40 /HPF (0-2) Urine WBC Rare /HPF (0-4) Urine Bacteria 0 /HPF (0-FEW) Laboratory Tests Test 08/04/18 07:22 White Blood Count 3.0 x10^3/uL (4.0-11.0) Red Blood Count 3.46 x10^6/uL (4.30-5.70) Hemoglobin 11.7 g/dL (13.0-17.5) Hematocrit 32.8 % (39.0-53.0) Mean Corpuscular Volume 95 fL (79-100) Mean Corpuscular Hemoglobin 34 pg (25-35) Mean Corpuscular Hemoglobin Concent 36 g/dL (31-37) Red Cell Distribution Width 18.0 % (11.5-14.5) Platelet Count 182 x10^3/uL (140-400) Neutrophils (%) (Auto) 58 % (31-73) Lymphocytes (%) (Auto) 32 % (24-48) Monocytes (%) (Auto) 8 % (0-9) Eosinophils (%) (Auto) 2 % (0-3) Basophils (%) (Auto) 1 % (0-3) Neutrophils # (Auto) 1.7 x10^3uL (1.8-7.7) Lymphocytes # (Auto) 0.9 x10^3/uL (1.0-4.8) Monocytes # (Auto) 0.2 x10^3/uL (0.0-1.1) Eosinophils # (Auto) 0.1 x10^3/uL (0.0-0.7) Basophils # (Auto) 0.0 x10^3/uL (0.0-0.2) Sodium Level 121 mmol/L (136-145) Potassium Level 3.5 mmol/L (3.5-5.1) Chloride Level 86 mmol/L (98-107) Carbon Dioxide Level 25 mmol/L (21-32) Anion Gap 10 (6-14) Blood Urea Nitrogen 9 mg/dL (8-26) Creatinine 0.6 mg/dL (0.7-1.3) Estimated GFR (Cockcroft-Gault) 138.9 Glucose Level 125 mg/dL (70-99) Calcium Level 8.2 mg/dL (8.5-10.1) Magnesium Level 1.9 mg/dL (1.8-2.4) Medications Current Medications Sodium Chloride 1,000 ml @ 1,000 mls/hr Q1H IV Last administered on at 14:04; Start 08/02/18 at 13:26; Stop 08/02/18 at 14:25; Status DC Fentanyl Citrate (Fentanyl 2ml Vial) 50 mcg 1X ONCE IV Last administered on at 15:13; Start 08/02/18 at 15:15; Stop 08/02/18 at 15:16; Status DC Ondansetron HCl (Zofran) 4 mg 1X ONCE IV Last administered on 08/02/18at 15:12 ; Start 08/02/18 at 15:15; Stop 08/02/18 at 15:16; Status DC Magnesium Sulfate 50 ml @ 25 mls/hr 1X ONCE IV Last administered on at 17:24; Start 08/02/18 at 17:00; Stop 08/02/18 at 18:59; Status DC Fentanyl Citrate (Fentanyl 2ml Vial) 50 mcg 1X ONCE IV Last administered on at 17:04; Start 08/02/18 at 17:00; Stop 08/02/18 at 17:01; Status DC Ondansetron HCl (Zofran) 4 mg PRN Q8HRS PRN IV NAUSEA/VOMITING; Start at 17:00; Stop 08/02/18 at 20:53; Status DC Ondansetron HCl (Zofran) 4 mg 1X ONCE IV Last administered on 08/02/18at 17:20 ; Start 08/02/18 at 17:15; Stop 08/02/18 at 17:16; Status DC Ondansetron HCl (Zofran) 4 mg PRN Q6HRS PRN IV NAUSEA/VOMITING, 2ND CHOICE; Start 08/02/18 at 20:15 Prochlorperazine Edisylate (Compazine) 10 mg PRN Q6HRS PRN IV NAUSEA/VOMITING, 1ST CHOICE Last administered on 08/04/18at 07:59; Start 08/02/18 at 20:15 Morphine Sulfate (Morphine Sulfate) 10 mg PRN Q4HRS PRN IV PAIN Last administered on 08/02/18at 20:34; Start 08/02/18 at 20:15; Stop 08/02/18 at 22 :03; Status DC Oxycodone HCl (Roxicodone) 5 mg PRN Q4HRS PRN PO MILD PAIN Last administered on 08/03/18at 14:14; Start 08/02/18 at 20:15 Oxycodone HCl (Roxicodone) 10 mg PRN Q4HRS PRN PO MODERATE PAIN, SEVERE PAIN Last administered on 08/04/18at 06:18; Start 08/02/18 at 20:15 Ketorolac Tromethamine (Toradol 30mg Vial) 30 mg PRN Q6HRS PRN IV INFLAMMATION ; Start 08/02/18 at 20:15; Stop 08/07/18 at 20:14 Acetaminophen (Tylenol) 650 mg PRN Q6HRS PRN PO Headaches, Temp > 101.5F; Start 08/02/18 at 20:15 Senna/Docusate Sodium (Senna Plus) 1 tab BID PO Last administered on at 10:08; Start 08/02/18 at 21:00 Lactulose (Lactulose) 20 gm PRN Q12HR PRN PO CONSTIPATION; Start 08/02/18 at 20:15 Bisacodyl (Dulcolax Supp) 10 mg PRN DAILY PRN ID CONSTIPATION; Start 08/02/18 at 20:15 Heparin Sodium (Porcine) (Heparin Sodium) 5,000 unit Q8HRS SQ Last administered on 08/04/18at 06:25; Start 08/02/18 at 22:00 Allopurinol (Zyloprim) 300 mg DAILY PO Last administered on 08/04/18at 10:08; Start 08/03/18 at 09:00 Aspirin (Debbie Aspirin) 325 mg DAILY PO Last administered on 08/04/18at 10:06; Start 08/03/18 at 09:00 Tamsulosin HCl (Flomax) 0.4 mg QHS PO Last administered on 08/03/18at 21:37; Start 08/02/18 at 21:00 Acyclovir (Zovirax) 800 mg BID PO Last administered on 08/04/18at 10:06; Start 08/02/18 at 21:00 Citalopram Hydrobromide (CeleXA) 20 mg DAILY PO Last administered on at 10:07; Start 08/03/18 at 09:00 Fluticasone Propionate (Flonase) 2 spray DAILY NS ; Start 08/03/18 at 09:00 Gabapentin (Neurontin) 800 mg BID PO Last administered on 08/04/18at 10:06; Start 08/02/18 at 21:00 Losartan Potassium (Cozaar) 100 mg DAILY PO Last administered on 08/04/18at 10: 07; Start 08/03/18 at 09:00 Meloxicam (Mobic) 7.5 mg DAILY PO Last administered on 08/04/18at 10:08; Start 08/03/18 at 09:00 Pantoprazole Sodium (Protonix) 40 mg DAILYAC PO Last administered on at 08:05; Start 08/03/18 at 07:30 Magnesium Sulfate/ Dextrose 100 ml @ 25 mls/hr 1X ONCE IV Last administered on 08/02/18at 21:55; Start 08/02/18 at 21:00; Stop 08/03/18 at 00:59; Status DC Labetalol HCl (Normodyne Iv Push) 10 mg PRN Q4HRS PRN IVP HTN, SEE COMMENTS, 2ND CHOICE; Start 08/02/18 at 20:30 Hydralazine HCl (Apresoline) 10 mg PRN TID PO ; Start 08/02/18 at 20:30 Enalaprilat (Vasotec Inj) 1.25 mg PRN Q6HRS PRN IVP HTN, SEE COMMENTS, 1ST CHOICE; Start 08/02/18 at 20:30 Hydrochlorothiazide (Hydrodiuril) 25 mg DAILY PO Last administered on at 08:31; Start 08/03/18 at 09:00; Stop 08/03/18 at 12:19; Status DC Non-Formulary Medication 1 ea DAILY PO ; Start 08/03/18 at 09:00; Stop at 13:53; Status DC Morphine Sulfate (Morphine Sulfate) 10 mg PRN Q4HRS PRN IV SEVERE PAIN Last administered on 08/03/18at 22:47; Start 08/02/18 at 22:15 Pharmacy Consult (C.diff Med Screen By Rx) 1 each 1X ONCE [facility] ; Start 08/03/18 at 09:00; Stop 08/03/18 at 09:01; Status DC Active Scripts Active Gabapentin 300 Mg Capsule 800 Mg PO BID Flomax (Tamsulosin Hcl) 0.4 Mg Cap.er.24h 0.4 Mg PO QHS Reported Revlimid (Lenalidomide) 25 Mg Capsule 25 Mg PO Dexamethasone 4 Mg Tablet 40 Mg PO WEEKLY Acyclovir 800 Mg Tablet 1 Tab PO BID Aspirin 325 Mg Tablet 1 Tab PO DAILY Hyzaar 100-25 Tablet (Losartan/Hydrochlorothiazide) 1 Each Tablet 1 Each PO DAILY Hydrocodone-Apap 5-325 (Hydrocodone Bit/Acetaminophen) 1 Each Tablet 1 Tab PO PRN Q6HRS PRN Escitalopram Oxalate 10 Mg Tablet 10 Mg PO DAILY Flonase Allergy Relief (Fluticasone Propionate) 9.9 Ml Fisher.susp 2 Sprays NS DAILY Meloxicam 7.5 Mg Tablet 7.5 Mg PO DAILY Prilosec Otc (Omeprazole Magnesium) 20 Mg Tablet.dr 40 Mg PO DAILY Allopurinol 300 Mg Tablet 300 Mg PO DAILY Vitals/I & O Vital Sign - Last 24 Hours 08/03/18 08/03/18 08/03/18 08/03/18 11:00 14:14 14:28 18:33 Temp 98.4 97.4 98.4 97.4 Pulse 82 83 Resp 18 18 B/P (MAP) 128/78 (95) 141/73 (95) Pulse Ox 97 97 96 O2 Delivery Room Air Room Air Room Air Room Air 08/03/18 08/03/18 08/03/18 08/03/18 19:00 19:30 20:00 22:47 Temp 97.9 97.9 Pulse 78 Resp 18 B/P (MAP) 123/77 (92) Pulse Ox 97 O2 Delivery Room Air Room Air Room Air Room Air 08/03/18 08/03/18 08/04/18 08/04/18 23:00 23:20 00:03 03:00 Temp 98.0 98.0 98.0 98.0 Pulse 87 72 Resp 14 14 B/P (MAP) 109/51 (70) 128/72 (90) Pulse Ox 97 98 O2 Delivery Room Air Room Air Room Air Room Air 08/04/18 08/04/18 08/04/18 06:18 07:00 10:07 Temp 97.7 97.7 Pulse 82 82 Resp 18 B/P (MAP) 134/86 (102) 134/86 Pulse Ox 98 O2 Delivery Room Air Room Air Intake and Output 08/03/18 08/03/18 08/04/18 15:00 23:00 07:00 Intake Total 60 ml 300 ml 1000 ml Output Total 1 ml Balance 60 ml 299 ml 1000 ml BARBRA ANDREA MD Aug 04, 2018 10:31
[2018-08-04 11:00] VITALS: BP 135/80
[2018-08-04 15:00] VITALS: BP 133/83
[2018-08-04 19:00] VITALS: BP 117/66
[2018-08-04] MEDS: TAMSULOSIN 0.4 MG CAP.ER.24H. PO SCH (21:35)
[2018-08-04] MEDS: MORPHINE SULFATE 10 MG/ML VIAL. IV PRN (22:36)
[2018-08-04 23:00] VITALS: BP 93/53
[2018-08-05] MEDS: oxyCODONE IR 5 MG TABLET PO PRN ×4 (01:43→21:03)
[2018-08-05 03:00] VITALS: BP 136/80
[2018-08-05] MEDS: HEPARIN for SUB-Q USE 5,000 UNIT/ML VIAL. SQ SCH ×3 (04:44→21:03)
[2018-08-05 04:47] LABS: BASO % 1 % (0-3); EOS # 0.1 x10^3/uL (0.0-0.7); EOS % 2 % (0-3); HEMATOCRIT 31.9 % (39.0-53.0); HEMOGLOBIN 11.4 g/dL (13.0-17.5); LYMPH # 1.2 x10^3/uL (1.0-4.8); LYMPH % 38 % (24-48); MEAN CORPUSCULAR HEMOGLOBIN 34 pg (25-35); MEAN CORPUSCULAR HGB CONC 36 g/dL (31-37); MEAN CORPUSCULAR VOLUME 96 fL (79-100); MONO # 0.3 x10^3/uL (0.0-1.1); MONO % 10 % (0-9); NEUT # 1.5 x10^3uL (1.8-7.7); NEUT % 49 % (31-73); PLATELET COUNT 182 x10^3/uL (140-400); RED BLOOD COUNT 3.33 x10^6/uL (4.30-5.70); RED CELL DISTRIBUTION WIDTH 17.3 % (11.5-14.5); WHITE BLOOD COUNT 3.1 x10^3/uL (4.0-11.0)
[2018-08-05] MEDS: MORPHINE SULFATE 10 MG/ML VIAL. IV PRN ×2 (05:33→19:16)
[2018-08-05 07:00] VITALS: BP 112/70
[2018-08-05] MEDS: GABAPENTIN 400 MG CAPSULE. PO SCH ×2 (07:56→21:03)
[2018-08-05] MEDS: ASPIRIN 325 MG TABLET PO SCH (07:56)
[2018-08-05] MEDS: PANTOPRAZOLE 40 MG TABLET.DR. PO SCH (07:56)
[2018-08-05] MEDS: SENNOSIDES/DOCUSATE 8.6/50MG TABLET. PO SCH ×2 (07:57→21:03)
[2018-08-05] MEDS: CITALOPRAM 20 MG TABLET. PO SCH (07:57)
[2018-08-05] MEDS: ALLOPURINOL 300 MG TABLET. PO SCH (07:57)
[2018-08-05] MEDS: ACYCLOVIR 200 MG CAPSULE. PO SCH ×2 (07:57→21:03)
[2018-08-05] MEDS: MELOXICAM 7.5 MG TABLET PO SCH (07:58)
[2018-08-05] MEDS: LOSARTAN POTASSIUM 50 MG TABLET. PO SCH (08:01)
[2018-08-05] MEDS: FLUTICASONE 50MCG/NASAL SPRAY 16GM BOTTLE. NS SCH (08:02)
--- NOTE | 2018-08-05 09:02 | PDOC ---
PROGRESS NOTES Subjective Subjective HPI - f/u of IgG kappa multiple myeloma. ROS -had back pain Objective Objective Vital Signs Date Time Temp Pulse Resp B/P (MAP) Pulse Ox O2 Delivery O2 Flow Rate FiO2 08/05/18 08:02 Room Air 08/05/18 08:01 89 112/70 08/05/18 07:00 97.5 18 97 97.5 Intake and Output 08/05/18 07:00 Intake Total 1060 ml Balance 1060 ml Intake Oral 1060 ml # Voids 6 Physical Exam Heart: Normal S1, Normal S2 General: Alert, Oriented X3 Lungs: Clear to auscultation Neuro: Normal speech Psych/Mental Status: Mental status NL Assessment Assessment Problems Medical Problems: (1) Hypomagnesemia Status: Acute (2) Hyponatremia Status: Acute (3) Microscopic hematuria Status: Acute (4) Multiple myeloma Status: Acute (5) Weakness Status: Acute IMPRESSION AND PLAN: 1. IgG kappa multiple myeloma. He was diagnosed on 06/25/2018. He has received one cycle of chemotherapy. He has received Decadron 40 mg daily for 4 days from 06/25/2018. He was then started on chemotherapy with Velcade, Decadron and Revlimid on 07/06/2018. Revlimid was not available until 07/08/2018 and he took one dose on 07/08/2018 and another dose on 07/13/2018 and another one on 07/14/2018 after which he was diagnosed with meningitis and hence the Revlimid was put on hold. He also received Velcade on 07/06/2018 and cycle number day 1, day #4 was given on 07/09/2018 and day #8 of Velcade was given on 07/13/2018. He has not had any chemo or revlimid since 07/13/18. Second cycle was deferred due to meningitis and generalized weakness. I have advised him to follow up with me next week for reevaluation and if he is feeling better, I will plan to initiate second cycle of chemotherapy. He is responding very well. Serum protein electrophoresis and IgA levels have significantly improved as described above. 2. Back pain. MRI of the lumbar spine on 07/26/2018 revealed degenerative disk disease, greatest at the L3-L4 and L4-L5. Multiple scattered edematous, enhancing marrow lesions were seen throughout the visualized spine and iliac bones consistent with multiple myeloma. However, these lesions are not responsible for his pain. I discussed with the radiologist. He requests to see Dr Malik Ordoñez for back pain due to degenerative disc disease. 3. Hyponatremia and hypokalemia. Continue management per primary team. Na worse at 121. Consult nephrology. I will order MRI brain. 4. 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 Monitor. Comment Review of Relevant I have reviewed the following items cristina (where applicable) has been applied. Labs Laboratory Tests Test 08/04/18 07:22 08/05/18 03:20 White Blood Count 3.0 x10^3/uL (4.0-11.0) 3.1 x10^3/uL (4.0-11.0) Red Blood Count 3.46 x10^6/uL (4.30-5.70) 3.33 x10^6/uL (4.30-5.70) Hemoglobin 11.7 g/dL (13.0-17.5) 11.4 g/dL (13.0-17.5) Hematocrit 32.8 % (39.0-53.0) 31.9 % (39.0-53.0) Mean Corpuscular Volume 95 fL (79-100) 96 fL (79-100) Mean Corpuscular Hemoglobin 34 pg (25-35) 34 pg (25-35) Mean Corpuscular Hemoglobin Concent 36 g/dL (31-37) 36 g/dL (31-37) Red Cell Distribution Width 18.0 % (11.5-14.5) 17.3 % (11.5-14.5) Platelet Count 182 x10^3/uL (140-400) 182 x10^3/uL (140-400) Neutrophils (%) (Auto) 58 % (31-73) 49 % (31-73) Lymphocytes (%) (Auto) 32 % (24-48) 38 % (24-48) Monocytes (%) (Auto) 8 % (0-9) 10 % (0-9) Eosinophils (%) (Auto) 2 % (0-3) 2 % (0-3) Basophils (%) (Auto) 1 % (0-3) 1 % (0-3) Neutrophils # (Auto) 1.7 x10^3uL (1.8-7.7) 1.5 x10^3uL (1.8-7.7) Lymphocytes # (Auto) 0.9 x10^3/uL (1.0-4.8) 1.2 x10^3/uL (1.0-4.8) Monocytes # (Auto) 0.2 x10^3/uL (0.0-1.1) 0.3 x10^3/uL (0.0-1.1) Eosinophils # (Auto) 0.1 x10^3/uL (0.0-0.7) 0.1 x10^3/uL (0.0-0.7) Basophils # (Auto) 0.0 x10^3/uL (0.0-0.2) 0.0 x10^3/uL (0.0-0.2) Sodium Level 121 mmol/L (136-145) Potassium Level 3.5 mmol/L (3.5-5.1) Chloride Level 86 mmol/L (98-107) Carbon Dioxide Level 25 mmol/L (21-32) Anion Gap 10 (6-14) Blood Urea Nitrogen 9 mg/dL (8-26) Creatinine 0.6 mg/dL (0.7-1.3) Estimated GFR (Cockcroft-Gault) 138.9 Glucose Level 125 mg/dL (70-99) Serum Osmolality 253 mOsm/Kg (279-304) Calcium Level 8.2 mg/dL (8.5-10.1) Magnesium Level 1.9 mg/dL (1.8-2.4) Laboratory Tests Test 08/05/18 03:20 White Blood Count 3.1 x10^3/uL (4.0-11.0) Red Blood Count 3.33 x10^6/uL (4.30-5.70) Hemoglobin 11.4 g/dL (13.0-17.5) Hematocrit 31.9 % (39.0-53.0) Mean Corpuscular Volume 96 fL (79-100) Mean Corpuscular Hemoglobin 34 pg (25-35) Mean Corpuscular Hemoglobin Concent 36 g/dL (31-37) Red Cell Distribution Width 17.3 % (11.5-14.5) Platelet Count 182 x10^3/uL (140-400) Neutrophils (%) (Auto) 49 % (31-73) Lymphocytes (%) (Auto) 38 % (24-48) Monocytes (%) (Auto) 10 % (0-9) Eosinophils (%) (Auto) 2 % (0-3) Basophils (%) (Auto) 1 % (0-3) Neutrophils # (Auto) 1.5 x10^3uL (1.8-7.7) Lymphocytes # (Auto) 1.2 x10^3/uL (1.0-4.8) Monocytes # (Auto) 0.3 x10^3/uL (0.0-1.1) Eosinophils # (Auto) 0.1 x10^3/uL (0.0-0.7) Basophils # (Auto) 0.0 x10^3/uL (0.0-0.2) Medications Current Medications Sodium Chloride 1,000 ml @ 1,000 mls/hr Q1H IV Last administered on at 14:04; Start 08/02/18 at 13:26; Stop 08/02/18 at 14:25; Status DC Fentanyl Citrate (Fentanyl 2ml Vial) 50 mcg 1X ONCE IV Last administered on at 15:13; Start 08/02/18 at 15:15; Stop 08/02/18 at 15:16; Status DC Ondansetron HCl (Zofran) 4 mg 1X ONCE IV Last administered on 08/02/18at 15:12 ; Start 08/02/18 at 15:15; Stop 08/02/18 at 15:16; Status DC Magnesium Sulfate 50 ml @ 25 mls/hr 1X ONCE IV Last administered on at 17:24; Start 08/02/18 at 17:00; Stop 08/02/18 at 18:59; Status DC Fentanyl Citrate (Fentanyl 2ml Vial) 50 mcg 1X ONCE IV Last administered on at 17:04; Start 08/02/18 at 17:00; Stop 08/02/18 at 17:01; Status DC Ondansetron HCl (Zofran) 4 mg PRN Q8HRS PRN IV NAUSEA/VOMITING; Start at 17:00; Stop 08/02/18 at 20:53; Status DC Ondansetron HCl (Zofran) 4 mg 1X ONCE IV Last administered on 08/02/18at 17:20 ; Start 08/02/18 at 17:15; Stop 08/02/18 at 17:16; Status DC Ondansetron HCl (Zofran) 4 mg PRN Q6HRS PRN IV NAUSEA/VOMITING, 2ND CHOICE; Start 08/02/18 at 20:15 Prochlorperazine Edisylate (Compazine) 10 mg PRN Q6HRS PRN IV NAUSEA/VOMITING, 1ST CHOICE Last administered on 08/04/18at 07:59; Start 08/02/18 at 20:15 Morphine Sulfate (Morphine Sulfate) 10 mg PRN Q4HRS PRN IV PAIN Last administered on 08/02/18at 20:34; Start 08/02/18 at 20:15; Stop 08/02/18 at 22 :03; Status DC Oxycodone HCl (Roxicodone) 5 mg PRN Q4HRS PRN PO MILD PAIN Last administered on 08/03/18at 14:14; Start 08/02/18 at 20:15 Oxycodone HCl (Roxicodone) 10 mg PRN Q4HRS PRN PO MODERATE PAIN, SEVERE PAIN Last administered on 08/05/18at 07:01; Start 08/02/18 at 20:15 Ketorolac Tromethamine (Toradol 30mg Vial) 30 mg PRN Q6HRS PRN IV INFLAMMATION ; Start 08/02/18 at 20:15; Stop 08/07/18 at 20:14 Acetaminophen (Tylenol) 650 mg PRN Q6HRS PRN PO Headaches, Temp > 101.5F; Start 08/02/18 at 20:15 Senna/Docusate Sodium (Senna Plus) 1 tab BID PO Last administered on at 07:57; Start 08/02/18 at 21:00 Lactulose (Lactulose) 20 gm PRN Q12HR PRN PO CONSTIPATION; Start 08/02/18 at 20:15 Bisacodyl (Dulcolax Supp) 10 mg PRN DAILY PRN [place] CONSTIPATION; Start 08/02/18 at 20:15 Heparin Sodium (Porcine) (Heparin Sodium) 5,000 unit Q8HRS SQ Last administered on 08/04/18at 15:02; Start 08/02/18 at 22:00 Allopurinol (Zyloprim) 300 mg DAILY PO Last administered on 08/05/18 07:57; Start 08/03/18 at 09:00 Aspirin (Debbie Aspirin) 325 mg DAILY PO Last administered on 08/05/18at 07:56; Start 08/03/18 at 09:00 Tamsulosin HCl (Flomax) 0.4 mg QHS PO Last administered on 08/04/18at 21:35; Start 08/02/18 at 21:00 Acyclovir (Zovirax) 800 mg BID PO Last administered on 08/05/18 07:57; Start 08/02/18 at 21:00 Citalopram Hydrobromide (CeleXA) 20 mg DAILY PO Last administered on 07:57; Start 08/03/18 at 09:00 Fluticasone Propionate (Flonase) 2 spray DAILY NS ; Start 08/03/18 at 09:00 Gabapentin (Neurontin) 800 mg BID PO Last administered on 08/05/18 07:56; Start 08/02/18 at 21:00 Losartan Potassium (Cozaar) 100 mg DAILY PO Last administered on 08/05/18 08: 01; Start 08/03/18 at 09:00 Meloxicam (Mobic) 7.5 mg DAILY PO Last administered on 08/05/18 07:58; Start 08/03/18 at 09:00 Pantoprazole Sodium (Protonix) 40 mg DAILYAC PO Last administered on 07:56; Start 08/03/18 at 07:30 Magnesium Sulfate/ Dextrose 100 ml @ 25 mls/hr 1X ONCE IV Last administered on 08/02/18at 21:55; Start 08/02/18 at 21:00; Stop 08/03/18 at 00:59; Status DC Labetalol HCl (Normodyne Iv Push) 10 mg PRN Q4HRS PRN IVP HTN, SEE COMMENTS, 2ND CHOICE; Start 08/02/18 at 20:30 Hydralazine HCl (Apresoline) 10 mg PRN TID PO ; Start 08/02/18 at 20:30 Enalaprilat (Vasotec Inj) 1.25 mg PRN Q6HRS PRN IVP HTN, SEE COMMENTS, 1ST CHOICE; Start 08/02/18 at 20:30 Hydrochlorothiazide (Hydrodiuril) 25 mg DAILY PO Last administered on at 08:31; Start 08/03/18 at 09:00; Stop 08/03/18 at 12:19; Status DC Non-Formulary Medication 1 ea DAILY PO ; Start 08/03/18 at 09:00; Stop at 13:53; Status DC Morphine Sulfate (Morphine Sulfate) 10 mg PRN Q4HRS PRN IV SEVERE PAIN Last administered on 08/05/18at 05:33; Start 08/02/18 at 22:15 Pharmacy Consult (C.diff Med Screen By Rx) 1 each 1X ONCE [facility] ; Start 08/03/18 at 09:00; Stop 08/03/18 at 09:01; Status DC Active Scripts Active Gabapentin 300 Mg Capsule 800 Mg PO BID Flomax (Tamsulosin Hcl) 0.4 Mg Cap.er.24h 0.4 Mg PO QHS Reported Revlimid (Lenalidomide) 25 Mg Capsule 25 Mg PO Dexamethasone 4 Mg Tablet 40 Mg PO WEEKLY Acyclovir 800 Mg Tablet 1 Tab PO BID Aspirin 325 Mg Tablet 1 Tab PO DAILY Hyzaar 100-25 Tablet (Losartan/Hydrochlorothiazide) 1 Each Tablet 1 Each PO DAILY Hydrocodone-Apap 5-325 (Hydrocodone Bit/Acetaminophen) 1 Each Tablet 1 Tab PO PRN Q6HRS PRN Escitalopram Oxalate 10 Mg Tablet 10 Mg PO DAILY Flonase Allergy Relief (Fluticasone Propionate) 9.9 Ml [place].susp 2 Sprays NS DAILY Meloxicam 7.5 Mg Tablet 7.5 Mg PO DAILY Prilosec Otc (Omeprazole Magnesium) 20 Mg Tablet.dr 40 Mg PO DAILY Allopurinol 300 Mg Tablet 300 Mg PO DAILY Vitals/I & O Vital Sign - Last 24 Hours 08/04/18 08/04/18 08/04/18 08/04/18 10:07 11:00 12:29 15:00 Temp 98.9 98.9 98.9 98.9 Pulse 82 90 86 Resp 18 18 B/P (MAP) 134/86 135/80 (98) 133/83 (100) Pulse Ox 97 98 O2 Delivery Room Air Room Air Room Air 08/04/18 08/04/18 08/04/18 08/04/18 19:00 19:17 19:23 22:36 Temp 98.4 98.4 Pulse 86 Resp 18 B/P (MAP) 117/66 (83) Pulse Ox 98 O2 Delivery Room Air Room Air Room Air Room Air 08/04/18 08/05/18 08/05/18 08/05/18 23:00 01:43 02:43 03:00 Temp 97.1 97.6 97.1 97.6 Pulse 84 96 Resp 18 18 B/P (MAP) 93/53 (66) 136/80 (98) Pulse Ox 96 98 98 O2 Delivery Room Air Room Air Room Air 08/05/18 08/05/18 08/05/18 08/05/18 05:33 06:03 07:00 07:01 Temp 97.5 97.5 Pulse 89 Resp 18 B/P (MAP) 112/70 (84) Pulse Ox 98 97 O2 Delivery Room Air Room Air Room Air Room Air 08/05/18 08/05/18 08:01 08:02 Pulse 89 B/P (MAP) 112/70 O2 Delivery Room Air Intake and Output 08/04/18 08/04/18 08/05/18 15:00 23:00 07:00 Intake Total 360 ml 180 ml 520 ml Balance 360 ml 180 ml 520 ml PHILLIP FUNEZ MD Aug 05, 2018 09:02
--- NOTE | 2018-08-05 10:48 | PDOC ---
PROGRESS NOTES Chief Complaint Chief Complaint drinking less fluid, moderately severe bone pain he relates to his myeloma. Found with low magnesium at 1.4 in the ED as well as sodium of 130. History of Present Illness History of Present Illness Assessment/Plan Assessment A/P: Nausea - Likely related to headache, chemo. Has been unable to take PO at home Hypomagnesemia - likely etiology of his weakness, will replace, follow daily with K Headache - CT negative for abnormality, is still recovering from meningitis, will cont acyclovir Hyponatremia - will fluid restrict may be SIADH, CHK URINE NA, SERUM OSMOLALITY SIRS - does not appear to have an infectious source, will culture and hold off on antibiotics at this time. Multiple Myeloma - on revlimid.consult Oncology. Has bone pain in multiple locations, will give him a moderate pain regimen HTN urgency - will need aggressive prns, cont his home meds. This could be pain related. Will repeat troponin as well Urinary retention - flomax, likely this is BPH vs neurogenic bladder, PPX - heparin FULL CODE tele with hypomagnesemia, at least 2 midnights. Vitals Vitals Vital Signs Date Time Temp Pulse Resp B/P (MAP) Pulse Ox O2 Delivery O2 Flow Rate FiO2 08/05/18 08:02 Room Air 08/05/18 08:01 89 112/70 08/05/18 07:00 97.5 18 97 97.5 Physical Exam General: Alert, Oriented X3, Cooperative, mild distress Heart: Regular rate, Normal S1, Normal S2 Lungs: Clear Abdomen: Normal bowel sounds, Soft, No tenderness, No hepatosplenomegaly, No masses Extremities: No clubbing, No cyanosis, No edema, Normal pulses, No tenderness/ swelling Skin: No rashes, No breakdown, No significant lesion Labs LABS REASON: Meningitis, hyponatremia, headache, multiple myeloma PROCEDURE: BRAIN WO/W CONTRAST MRI of the Brain without and with Contrast 08/05/2018 Clinical History: Weakness and headaches. History of multiple myeloma. Technique: Unenhanced T1-weighted sagittal and axial and FLAIR, T2-weighted, gradient echo and diffusion-weighted axial images of the brain were obtained. After the intravenous administration of 10 cc of Gadavist, enhanced T1-weighted axial, sagittal and coronal images of the brain were obtained. Findings: Comparison is made to the patient's CT scan of the head dated 08/02/2018. There is generalized parenchymal atrophy. Patchy, confluent and multiple focal areas of abnormally increased signal intensity are seen within the periventricular and subcortical white matter of both cerebral hemispheres along with the janet on the FLAIR and T2-weighted images consistent most likely with areas of small vessel ischemic disease. No acute parenchymal abnormality is seen. No abnormal area of contrast enhancement is noted. No extra-axial fluid collection is seen. There is no MRI evidence of acute ischemia/infarction. Mild mucosal thickening is seen involving both maxillary sinuses, left greater than right and scattered throughout the ethmoid air cells bilaterally. There are minimal bilateral mastoid effusions. Normal flow voids are seen within the major vascular structures surrounding the brain parenchyma. Impression: No acute parenchymal abnormality is seen. Electronically signed by: Efren Alvarez MD (08/05/2018 12:23 PM) [id number] Laboratory Tests Test 08/05/18 03:20 White Blood Count 3.1 x10^3/uL (4.0-11.0) Red Blood Count 3.33 x10^6/uL (4.30-5.70) Hemoglobin 11.4 g/dL (13.0-17.5) Hematocrit 31.9 % (39.0-53.0) Mean Corpuscular Volume 96 fL (79-100) Mean Corpuscular Hemoglobin 34 pg (25-35) Mean Corpuscular Hemoglobin Concent 36 g/dL (31-37) Red Cell Distribution Width 17.3 % (11.5-14.5) Platelet Count 182 x10^3/uL (140-400) Neutrophils (%) (Auto) 49 % (31-73) Lymphocytes (%) (Auto) 38 % (24-48) Monocytes (%) (Auto) 10 % (0-9) Eosinophils (%) (Auto) 2 % (0-3) Basophils (%) (Auto) 1 % (0-3) Neutrophils # (Auto) 1.5 x10^3uL (1.8-7.7) Lymphocytes # (Auto) 1.2 x10^3/uL (1.0-4.8) Monocytes # (Auto) 0.3 x10^3/uL (0.0-1.1) Eosinophils # (Auto) 0.1 x10^3/uL (0.0-0.7) Basophils # (Auto) 0.0 x10^3/uL (0.0-0.2) Assessment and Plan Assessmemt and Plan Problems Medical Problems: (1) Hypomagnesemia Status: Acute (2) Hyponatremia Status: Acute (3) Microscopic hematuria Status: Acute (4) Multiple myeloma Status: Acute (5) Weakness Status: Acute Comment Review of Relevant I have reviewed the following items cristina (where applicable) has been applied. Labs Laboratory Tests Test 08/04/18 07:22 08/05/18 03:20 White Blood Count 3.0 x10^3/uL (4.0-11.0) 3.1 x10^3/uL (4.0-11.0) Red Blood Count 3.46 x10^6/uL (4.30-5.70) 3.33 x10^6/uL (4.30-5.70) Hemoglobin 11.7 g/dL (13.0-17.5) 11.4 g/dL (13.0-17.5) Hematocrit 32.8 % (39.0-53.0) 31.9 % (39.0-53.0) Mean Corpuscular Volume 95 fL (79-100) 96 fL (79-100) Mean Corpuscular Hemoglobin 34 pg (25-35) 34 pg (25-35) Mean Corpuscular Hemoglobin Concent 36 g/dL (31-37) 36 g/dL (31-37) Red Cell Distribution Width 18.0 % (11.5-14.5) 17.3 % (11.5-14.5) Platelet Count 182 x10^3/uL (140-400) 182 x10^3/uL (140-400) Neutrophils (%) (Auto) 58 % (31-73) 49 % (31-73) Lymphocytes (%) (Auto) 32 % (24-48) 38 % (24-48) Monocytes (%) (Auto) 8 % (0-9) 10 % (0-9) Eosinophils (%) (Auto) 2 % (0-3) 2 % (0-3) Basophils (%) (Auto) 1 % (0-3) 1 % (0-3) Neutrophils # (Auto) 1.7 x10^3uL (1.8-7.7) 1.5 x10^3uL (1.8-7.7) Lymphocytes # (Auto) 0.9 x10^3/uL (1.0-4.8) 1.2 x10^3/uL (1.0-4.8) Monocytes # (Auto) 0.2 x10^3/uL (0.0-1.1) 0.3 x10^3/uL (0.0-1.1) Eosinophils # (Auto) 0.1 x10^3/uL (0.0-0.7) 0.1 x10^3/uL (0.0-0.7) Basophils # (Auto) 0.0 x10^3/uL (0.0-0.2) 0.0 x10^3/uL (0.0-0.2) Sodium Level 121 mmol/L (136-145) Potassium Level 3.5 mmol/L (3.5-5.1) Chloride Level 86 mmol/L (98-107) Carbon Dioxide Level 25 mmol/L (21-32) Anion Gap 10 (6-14) Blood Urea Nitrogen 9 mg/dL (8-26) Creatinine 0.6 mg/dL (0.7-1.3) Estimated GFR (Cockcroft-Gault) 138.9 Glucose Level 125 mg/dL (70-99) Serum Osmolality 253 mOsm/Kg (279-304) Calcium Level 8.2 mg/dL (8.5-10.1) Magnesium Level 1.9 mg/dL (1.8-2.4) Laboratory Tests Test 08/05/18 03:20 White Blood Count 3.1 x10^3/uL (4.0-11.0) Red Blood Count 3.33 x10^6/uL (4.30-5.70) Hemoglobin 11.4 g/dL (13.0-17.5) Hematocrit 31.9 % (39.0-53.0) Mean Corpuscular Volume 96 fL (79-100) Mean Corpuscular Hemoglobin 34 pg (25-35) Mean Corpuscular Hemoglobin Concent 36 g/dL (31-37) Red Cell Distribution Width 17.3 % (11.5-14.5) Platelet Count 182 x10^3/uL (140-400) Neutrophils (%) (Auto) 49 % (31-73) Lymphocytes (%) (Auto) 38 % (24-48) Monocytes (%) (Auto) 10 % (0-9) Eosinophils (%) (Auto) 2 % (0-3) Basophils (%) (Auto) 1 % (0-3) Neutrophils # (Auto) 1.5 x10^3uL (1.8-7.7) Lymphocytes # (Auto) 1.2 x10^3/uL (1.0-4.8) Monocytes # (Auto) 0.3 x10^3/uL (0.0-1.1) Eosinophils # (Auto) 0.1 x10^3/uL (0.0-0.7) Basophils # (Auto) 0.0 x10^3/uL (0.0-0.2) Medications Current Medications Sodium Chloride 1,000 ml @ 1,000 mls/hr Q1H IV Last administered on at 14:04; Start 08/02/18 at 13:26; Stop 08/02/18 at 14:25; Status DC Fentanyl Citrate (Fentanyl 2ml Vial) 50 mcg 1X ONCE IV Last administered on at 15:13; Start 08/02/18 at 15:15; Stop 08/02/18 at 15:16; Status DC Ondansetron HCl (Zofran) 4 mg 1X ONCE IV Last administered on 08/02/18at 15:12 ; Start 08/02/18 at 15:15; Stop 08/02/18 at 15:16; Status DC Magnesium Sulfate 50 ml @ 25 mls/hr 1X ONCE IV Last administered on at 17:24; Start 08/02/18 at 17:00; Stop 08/02/18 at 18:59; Status DC Fentanyl Citrate (Fentanyl 2ml Vial) 50 mcg 1X ONCE IV Last administered on at 17:04; Start 08/02/18 at 17:00; Stop 08/02/18 at 17:01; Status DC Ondansetron HCl (Zofran) 4 mg PRN Q8HRS PRN IV NAUSEA/VOMITING; Start at 17:00; Stop 08/02/18 at 20:53; Status DC Ondansetron HCl (Zofran) 4 mg 1X ONCE IV Last administered on 08/02/18at 17:20 ; Start 08/02/18 at 17:15; Stop 08/02/18 at 17:16; Status DC Ondansetron HCl (Zofran) 4 mg PRN Q6HRS PRN IV NAUSEA/VOMITING, 2ND CHOICE; Start 08/02/18 at 20:15 Prochlorperazine Edisylate (Compazine) 10 mg PRN Q6HRS PRN IV NAUSEA/VOMITING, 1ST CHOICE Last administered on 08/04/18at 07:59; Start 08/02/18 at 20:15 Morphine Sulfate (Morphine Sulfate) 10 mg PRN Q4HRS PRN IV PAIN Last administered on 08/02/18at 20:34; Start 08/02/18 at 20:15; Stop 08/02/18 at 22 :03; Status DC Oxycodone HCl (Roxicodone) 5 mg PRN Q4HRS PRN PO MILD PAIN Last administered on 08/03/18at 14:14; Start 08/02/18 at 20:15 Oxycodone HCl (Roxicodone) 10 mg PRN Q4HRS PRN PO MODERATE PAIN, SEVERE PAIN Last administered on 08/05/18at 07:01; Start 08/02/18 at 20:15 Ketorolac Tromethamine (Toradol 30mg Vial) 30 mg PRN Q6HRS PRN IV INFLAMMATION ; Start 08/02/18 at 20:15; Stop 08/07/18 at 20:14 Acetaminophen (Tylenol) 650 mg PRN Q6HRS PRN PO Headaches, Temp > 101.5F; Start 08/02/18 at 20:15 Senna/Docusate Sodium (Senna Plus) 1 tab BID PO Last administered on at 07:57; Start 08/02/18 at 21:00 Lactulose (Lactulose) 20 gm PRN Q12HR PRN PO CONSTIPATION; Start 08/02/18 at 20:15 Bisacodyl (Dulcolax Supp) 10 mg PRN DAILY PRN [place] CONSTIPATION; Start 08/02/18 at 20:15 Heparin Sodium (Porcine) (Heparin Sodium) 5,000 unit Q8HRS SQ Last administered on 08/04/18at 15:02; Start 08/02/18 at 22:00 Allopurinol (Zyloprim) 300 mg DAILY PO Last administered on 08/05/18 07:57; Start 08/03/18 at 09:00 Aspirin (Debbie Aspirin) 325 mg DAILY PO Last administered on 08/05/18 07:56; Start 08/03/18 at 09:00 Tamsulosin HCl (Flomax) 0.4 mg QHS PO Last administered on 08/04/18at 21:35; Start 08/02/18 at 21:00 Acyclovir (Zovirax) 800 mg BID PO Last administered on 08/05/18 07:57; Start 08/02/18 at 21:00 Citalopram Hydrobromide (CeleXA) 20 mg DAILY PO Last administered on 07:57; Start 08/03/18 at 09:00 Fluticasone Propionate (Flonase) 2 spray DAILY NS ; Start 08/03/18 at 09:00 Gabapentin (Neurontin) 800 mg BID PO Last administered on 08/05/18 07:56; Start 08/02/18 at 21:00 Losartan Potassium (Cozaar) 100 mg DAILY PO Last administered on 08/05/18 08: 01; Start 08/03/18 at 09:00 Meloxicam (Mobic) 7.5 mg DAILY PO Last administered on 08/05/18 07:58; Start 08/03/18 at 09:00 Pantoprazole Sodium (Protonix) 40 mg DAILYAC PO Last administered on 07:56; Start 08/03/18 at 07:30 Magnesium Sulfate/ Dextrose 100 ml @ 25 mls/hr 1X ONCE IV Last administered on 08/02/18at 21:55; Start 08/02/18 at 21:00; Stop 08/03/18 at 00:59; Status DC Labetalol HCl (Normodyne Iv Push) 10 mg PRN Q4HRS PRN IVP HTN, SEE COMMENTS, 2ND CHOICE; Start 08/02/18 at 20:30 Hydralazine HCl (Apresoline) 10 mg PRN TID PO ; Start 08/02/18 at 20:30 Enalaprilat (Vasotec Inj) 1.25 mg PRN Q6HRS PRN IVP HTN, SEE COMMENTS, 1ST CHOICE; Start 08/02/18 at 20:30 Hydrochlorothiazide (Hydrodiuril) 25 mg DAILY PO Last administered on at 08:31; Start 08/03/18 at 09:00; Stop 08/03/18 at 12:19; Status DC Non-Formulary Medication 1 ea DAILY PO ; Start 08/03/18 at 09:00; Stop at 13:53; Status DC Morphine Sulfate (Morphine Sulfate) 10 mg PRN Q4HRS PRN IV SEVERE PAIN Last administered on 08/05/18at 05:33; Start 08/02/18 at 22:15 Pharmacy Consult ([facility] Med Screen By Rx) 1 each 1X ONCE [facility] ; Start 08/03/18 at 09:00; Stop 08/03/18 at 09:01; Status DC Active Scripts Active Gabapentin 300 Mg Capsule 800 Mg PO BID Flomax (Tamsulosin Hcl) 0.4 Mg Cap.er.24h 0.4 Mg PO QHS Reported Revlimid (Lenalidomide) 25 Mg Capsule 25 Mg PO Dexamethasone 4 Mg Tablet 40 Mg PO WEEKLY Acyclovir 800 Mg Tablet 1 Tab PO BID Aspirin 325 Mg Tablet 1 Tab PO DAILY Hyzaar 100-25 Tablet (Losartan/Hydrochlorothiazide) 1 Each Tablet 1 Each PO DAILY Hydrocodone-Apap 5-325 (Hydrocodone Bit/Acetaminophen) 1 Each Tablet 1 Tab PO PRN Q6HRS PRN Escitalopram Oxalate 10 Mg Tablet 10 Mg PO DAILY Flonase Allergy Relief (Fluticasone Propionate) 9.9 Ml [place].susp 2 Sprays NS DAILY Meloxicam 7.5 Mg Tablet 7.5 Mg PO DAILY Prilosec Otc (Omeprazole Magnesium) 20 Mg Tablet.dr 40 Mg PO DAILY Allopurinol 300 Mg Tablet 300 Mg PO DAILY Vitals/I & O Vital Sign - Last 24 Hours 08/04/18 08/04/18 08/04/18 08/04/18 11:00 12:29 15:00 19:00 Temp 98.9 98.9 98.4 98.9 98.9 98.4 Pulse 90 86 86 Resp 18 18 18 B/P (MAP) 135/80 (98) 133/83 (100) 117/66 (83) Pulse Ox 97 98 98 O2 Delivery Room Air Room Air Room Air Room Air 08/04/18 08/04/18 08/04/18 08/04/18 19:17 19:23 22:36 23:00 Temp 97.1 97.1 Pulse 84 Resp 18 B/P (MAP) 93/53 (66) Pulse Ox 96 O2 Delivery Room Air Room Air Room Air Room Air 08/05/18 08/05/18 08/05/18 08/05/18 01:43 02:43 03:00 05:33 Temp 97.6 97.6 Pulse 96 Resp 18 B/P (MAP) 136/80 (98) Pulse Ox 98 98 O2 Delivery Room Air Room Air Room Air 08/05/18 08/05/18 08/05/18 08/05/18 06:03 07:00 07:01 08:00 Temp 97.5 97.5 Pulse 89 Resp 18 B/P (MAP) 112/70 (84) Pulse Ox 98 97 O2 Delivery Room Air Room Air Room Air Room Air 08/05/18 08/05/18 08:01 08:02 Pulse 89 B/P (MAP) 112/70 O2 Delivery Room Air Intake and Output 08/04/18 08/04/18 08/05/18 15:00 23:00 07:00 Intake Total 360 ml 180 ml 520 ml Balance 360 ml 180 ml 520 ml BARBRA ANDREA MD Aug 05, 2018 10:48
[2018-08-05 11:00] VITALS: BP 102/51
[2018-08-05] MEDS ORDERED: GADOBUTROL 10 MMOL/10 ML VIAL IV ONE (11:45)
--- NOTE | 2018-08-05 12:26 | PDOC2 ---
CONSULT Date of Consult Date of Consult DATE: 08/05/18 TIME: 12:18 Reason for Consult Reason for Consult: LOW NA Referring Physician Referring Physician: ADELAIDE Identification/Chief Complaint Chief Complaint NAUSEA Source Source: Chart review, Patient History of Present Illness Reason for Visit: THIS IS A 58 YR OLD ADMITTED WITH NAUSEA AND HEADACHES. HX NOTABLE FOR RECENT DX OF MULTIPLE MYELOMA. HIS NA WAS 130 ON ADMIT AND NOW 121. NO SIGNIFICANT HYPOTONIC SOLUTIONS ADMINISTERED. HE HAS BEEN UNDERGOING CHEMOTHERAPY. RECENTLY WAS INPT WITH MENINGITIS. MED LIST HAS MULTIPLE MEDS THAT CAN INCREASE ADH LEVELS AND SOME OF THE CHEMO MEDS CAN CAUSE MAGNESIUM LOSS IN THE URINE Past Medical History Cardiovascular: HTN, Hyperlipidemia Pulmonary: No pertinent hx GI: Diverticulosis, GERD, Gastritis Heme/Onc: No pertinent hx Hepatobiliary: No pertinent hx Psych: Anxiety Rheumatologic: No pertinent hx Infectious disease: No pertinent hx Renal/: No pertinent hx Endocrine: No pertinent hx Past Surgical History Past Surgical History: Tonsillectomy Family History Family History: No Significant Social History ALCOHOL: none Drugs: None Current Problem List Problem List Problems Medical Problems: (1) Hypomagnesemia Status: Acute (2) Hyponatremia Status: Acute (3) Microscopic hematuria Status: Acute (4) Multiple myeloma Status: Acute (5) Weakness Status: Acute Current Medications Current Medications Current Medications Sodium Chloride 1,000 ml @ 1,000 mls/hr Q1H IV Last administered on at 14:04; Start 08/02/18 at 13:26; Stop 08/02/18 at 14:25; Status DC Fentanyl Citrate (Fentanyl 2ml Vial) 50 mcg 1X ONCE IV Last administered on at 15:13; Start 08/02/18 at 15:15; Stop 08/02/18 at 15:16; Status DC Ondansetron HCl (Zofran) 4 mg 1X ONCE IV Last administered on 08/02/18at 15:12 ; Start 08/02/18 at 15:15; Stop 08/02/18 at 15:16; Status DC Magnesium Sulfate 50 ml @ 25 mls/hr 1X ONCE IV Last administered on at 17:24; Start 08/02/18 at 17:00; Stop 08/02/18 at 18:59; Status DC Fentanyl Citrate (Fentanyl 2ml Vial) 50 mcg 1X ONCE IV Last administered on at 17:04; Start 08/02/18 at 17:00; Stop 08/02/18 at 17:01; Status DC Ondansetron HCl (Zofran) 4 mg PRN Q8HRS PRN IV NAUSEA/VOMITING; Start at 17:00; Stop 08/02/18 at 20:53; Status DC Ondansetron HCl (Zofran) 4 mg 1X ONCE IV Last administered on 08/02/18at 17:20 ; Start 08/02/18 at 17:15; Stop 08/02/18 at 17:16; Status DC Ondansetron HCl (Zofran) 4 mg PRN Q6HRS PRN IV NAUSEA/VOMITING, 2ND CHOICE; Start 08/02/18 at 20:15 Prochlorperazine Edisylate (Compazine) 10 mg PRN Q6HRS PRN IV NAUSEA/VOMITING, 1ST CHOICE Last administered on 08/04/18at 07:59; Start 08/02/18 at 20:15 Morphine Sulfate (Morphine Sulfate) 10 mg PRN Q4HRS PRN IV PAIN Last administered on 08/02/18at 20:34; Start 08/02/18 at 20:15; Stop 08/02/18 at 22 :03; Status DC Oxycodone HCl (Roxicodone) 5 mg PRN Q4HRS PRN PO MILD PAIN Last administered on 08/03/18at 14:14; Start 08/02/18 at 20:15 Oxycodone HCl (Roxicodone) 10 mg PRN Q4HRS PRN PO MODERATE PAIN, SEVERE PAIN Last administered on 08/05/18at 07:01; Start 08/02/18 at 20:15 Ketorolac Tromethamine (Toradol 30mg Vial) 30 mg PRN Q6HRS PRN IV INFLAMMATION ; Start 08/02/18 at 20:15; Stop 08/07/18 at 20:14 Acetaminophen (Tylenol) 650 mg PRN Q6HRS PRN PO Headaches, Temp > 101.5F; Start 08/02/18 at 20:15 Senna/Docusate Sodium (Senna Plus) 1 tab BID PO Last administered on at 07:57; Start 08/02/18 at 21:00 Lactulose (Lactulose) 20 gm PRN Q12HR PRN PO CONSTIPATION; Start 08/02/18 at 20:15 Bisacodyl (Dulcolax Supp) 10 mg PRN DAILY PRN NE CONSTIPATION; Start 08/02/18 at 20:15 Heparin Sodium (Porcine) (Heparin Sodium) 5,000 unit Q8HRS SQ Last administered on 08/04/18 15:02; Start 08/02/18 at 22:00 Allopurinol (Zyloprim) 300 mg DAILY PO Last administered on 08/05/18at 07:57; Start 08/03/18 at 09:00 Aspirin (Debbie Aspirin) 325 mg DAILY PO Last administered on 08/05/18 07:56; Start 08/03/18 at 09:00 Tamsulosin HCl (Flomax) 0.4 mg QHS PO Last administered on 08/04/18at 21:35; Start 08/02/18 at 21:00 Acyclovir (Zovirax) 800 mg BID PO Last administered on 08/05/18 07:57; Start 08/02/18 at 21:00 Citalopram Hydrobromide (CeleXA) 20 mg DAILY PO Last administered on 07:57; Start 08/03/18 at 09:00 Fluticasone Propionate (Flonase) 2 spray DAILY NS ; Start 08/03/18 at 09:00 Gabapentin (Neurontin) 800 mg BID PO Last administered on 08/05/18 07:56; Start 08/02/18 at 21:00 Losartan Potassium (Cozaar) 100 mg DAILY PO Last administered on 08/05/18at 08: 01; Start 08/03/18 at 09:00 Meloxicam (Mobic) 7.5 mg DAILY PO Last administered on 08/05/18 07:58; Start 08/03/18 at 09:00 Pantoprazole Sodium (Protonix) 40 mg DAILYAC PO Last administered on 07:56; Start 08/03/18 at 07:30 Magnesium Sulfate/ Dextrose 100 ml @ 25 mls/hr 1X ONCE IV Last administered on 08/02/18at 21:55; Start 08/02/18 at 21:00; Stop 08/03/18 at 00:59; Status DC Labetalol HCl (Normodyne Iv Push) 10 mg PRN Q4HRS PRN IVP HTN, SEE COMMENTS, 2ND CHOICE; Start 08/02/18 at 20:30 Hydralazine HCl (Apresoline) 10 mg PRN TID PO ; Start 08/02/18 at 20:30 Enalaprilat (Vasotec Inj) 1.25 mg PRN Q6HRS PRN IVP HTN, SEE COMMENTS, 1ST CHOICE; Start 08/02/18 at 20:30 Hydrochlorothiazide (Hydrodiuril) 25 mg DAILY PO Last administered on at 08:31; Start 08/03/18 at 09:00; Stop 08/03/18 at 12:19; Status DC Non-Formulary Medication 1 ea DAILY PO ; Start 08/03/18 at 09:00; Stop at 13:53; Status DC Morphine Sulfate (Morphine Sulfate) 10 mg PRN Q4HRS PRN IV SEVERE PAIN Last administered on 08/05/18at 05:33; Start 08/02/18 at 22:15 Pharmacy Consult (C.diff Med Screen By Rx) 1 each 1X ONCE [facility] ; Start 08/03/18 at 09:00; Stop 08/03/18 at 09:01; Status DC Gadobutrol (Gadavist) 10 mmol 1X ONCE IV Last administered on 08/05/18at 11:58 ; Start 08/05/18 at 11:45; Stop 08/05/18 at 11:46; Status DC Active Scripts Active Gabapentin 300 Mg Capsule 800 Mg PO BID Flomax (Tamsulosin Hcl) 0.4 Mg Cap.er.24h 0.4 Mg PO QHS Reported Revlimid (Lenalidomide) 25 Mg Capsule 25 Mg PO Dexamethasone 4 Mg Tablet 40 Mg PO WEEKLY Acyclovir 800 Mg Tablet 1 Tab PO BID Aspirin 325 Mg Tablet 1 Tab PO DAILY Hyzaar 100-25 Tablet (Losartan/Hydrochlorothiazide) 1 Each Tablet 1 Each PO DAILY Hydrocodone-Apap 5-325 (Hydrocodone Bit/Acetaminophen) 1 Each Tablet 1 Tab PO PRN Q6HRS PRN Escitalopram Oxalate 10 Mg Tablet 10 Mg PO DAILY Flonase Allergy Relief (Fluticasone Propionate) 9.9 Ml [place].susp 2 Sprays NS DAILY Meloxicam 7.5 Mg Tablet 7.5 Mg PO DAILY Prilosec Otc (Omeprazole Magnesium) 20 Mg Tablet.dr 40 Mg PO DAILY Allopurinol 300 Mg Tablet 300 Mg PO DAILY Allergies Allergies: Coded Allergies: amoxicillin (Verified Allergy, Intermediate, 07/17/18) TOLERATES AMPICILLIN IV Penicillins (Verified Adverse Reaction, Intermediate, Nausea and Vomiting , 07/06/18) ROS General: YES: Fatigue, Malaise, Appetite PSYCHOLOGICAL ROS: YES: Anxiety, Depression Eyes: Yes Decreased vision HEENT: YES: Heacaches Gastrointestinal: Yes Nausea, Yes Vomiting Genitourinary: YES Other (NOCTURIA) Musculoskeletal: Yes Muscular Weakness Neurological: Yes Weakness Skin: Yes Dry Skin Physical Exam General: Alert, Oriented X3, Cooperative, No acute distress HEENT: Atraumatic, PERRLA, EOMI, Mucous membr. moist/pink Lungs: Clear to auscultation, Normal air movement Heart: Regular rate, Normal S1 Abdomen: Normal bowel sounds Extremities: No clubbing Skin: No rashes Neuro: Normal speech, Cranial nerves 3-12 NL Psych/Mental Status: Mental status NL, Mood NL MUSCULOSKELETAL: No deformity, No swelling Vitals VITALS Vital Signs Date Time Temp Pulse Resp B/P (MAP) Pulse Ox O2 Delivery O2 Flow Rate FiO2 08/05/18 08:02 Room Air 08/05/18 08:01 89 112/70 08/05/18 07:00 97.5 18 97 97.5 Labs Labs Laboratory Tests Test 08/04/18 07:22 08/05/18 03:20 White Blood Count 3.0 x10^3/uL (4.0-11.0) 3.1 x10^3/uL (4.0-11.0) Red Blood Count 3.46 x10^6/uL (4.30-5.70) 3.33 x10^6/uL (4.30-5.70) Hemoglobin 11.7 g/dL (13.0-17.5) 11.4 g/dL (13.0-17.5) Hematocrit 32.8 % (39.0-53.0) 31.9 % (39.0-53.0) Mean Corpuscular Volume 95 fL (79-100) 96 fL (79-100) Mean Corpuscular Hemoglobin 34 pg (25-35) 34 pg (25-35) Mean Corpuscular Hemoglobin Concent 36 g/dL (31-37) 36 g/dL (31-37) Red Cell Distribution Width 18.0 % (11.5-14.5) 17.3 % (11.5-14.5) Platelet Count 182 x10^3/uL (140-400) 182 x10^3/uL (140-400) Neutrophils (%) (Auto) 58 % (31-73) 49 % (31-73) Lymphocytes (%) (Auto) 32 % (24-48) 38 % (24-48) Monocytes (%) (Auto) 8 % (0-9) 10 % (0-9) Eosinophils (%) (Auto) 2 % (0-3) 2 % (0-3) Basophils (%) (Auto) 1 % (0-3) 1 % (0-3) Neutrophils # (Auto) 1.7 x10^3uL (1.8-7.7) 1.5 x10^3uL (1.8-7.7) Lymphocytes # (Auto) 0.9 x10^3/uL (1.0-4.8) 1.2 x10^3/uL (1.0-4.8) Monocytes # (Auto) 0.2 x10^3/uL (0.0-1.1) 0.3 x10^3/uL (0.0-1.1) Eosinophils # (Auto) 0.1 x10^3/uL (0.0-0.7) 0.1 x10^3/uL (0.0-0.7) Basophils # (Auto) 0.0 x10^3/uL (0.0-0.2) 0.0 x10^3/uL (0.0-0.2) Sodium Level 121 mmol/L (136-145) Potassium Level 3.5 mmol/L (3.5-5.1) Chloride Level 86 mmol/L (98-107) Carbon Dioxide Level 25 mmol/L (21-32) Anion Gap 10 (6-14) Blood Urea Nitrogen 9 mg/dL (8-26) Creatinine 0.6 mg/dL (0.7-1.3) Estimated GFR (Cockcroft-Gault) 138.9 Glucose Level 125 mg/dL (70-99) Serum Osmolality 253 mOsm/Kg (279-304) Calcium Level 8.2 mg/dL (8.5-10.1) Magnesium Level 1.9 mg/dL (1.8-2.4) Laboratory Tests Test 08/05/18 03:20 White Blood Count 3.1 x10^3/uL (4.0-11.0) Red Blood Count 3.33 x10^6/uL (4.30-5.70) Hemoglobin 11.4 g/dL (13.0-17.5) Hematocrit 31.9 % (39.0-53.0) Mean Corpuscular Volume 96 fL (79-100) Mean Corpuscular Hemoglobin 34 pg (25-35) Mean Corpuscular Hemoglobin Concent 36 g/dL (31-37) Red Cell Distribution Width 17.3 % (11.5-14.5) Platelet Count 182 x10^3/uL (140-400) Neutrophils (%) (Auto) 49 % (31-73) Lymphocytes (%) (Auto) 38 % (24-48) Monocytes (%) (Auto) 10 % (0-9) Eosinophils (%) (Auto) 2 % (0-3) Basophils (%) (Auto) 1 % (0-3) Neutrophils # (Auto) 1.5 x10^3uL (1.8-7.7) Lymphocytes # (Auto) 1.2 x10^3/uL (1.0-4.8) Monocytes # (Auto) 0.3 x10^3/uL (0.0-1.1) Eosinophils # (Auto) 0.1 x10^3/uL (0.0-0.7) Basophils # (Auto) 0.0 x10^3/uL (0.0-0.2) Assessment/Plan Assessment/Plan IMP [id number] MULTIPLE MEDS MULTIPLE MYELOMA LOW MAG-CORRECTED LOW K-BETTER PLAN FLUID RESTRICTION MAY NEED DECLOMYCIN SUPERVISOR AIRPLANE FLIGHT ATTENDANT 3% SALINE ZAI PICKENS MD Aug 05, 2018 12:26
--- NOTE | 2018-08-05 12:26 | RAD ---
MRI of the Brain without and with Contrast 08/05/2018 Clinical History: Weakness and headaches. History of multiple myeloma. Technique: Unenhanced T1-weighted sagittal and axial and FLAIR, T2-weighted, gradient echo and diffusion-weighted axial images of the brain were obtained. After the intravenous administration of 10 cc of Gadavist, enhanced T1-weighted axial, sagittal and coronal images of the brain were obtained. Findings: Comparison is made to the patient's CT scan of the head dated 08/02/2018. There is generalized parenchymal atrophy. Patchy, confluent and multiple focal areas of abnormally increased signal intensity are seen within the periventricular and subcortical white matter of both cerebral hemispheres along with the janet on the FLAIR and T2-weighted images consistent most likely with areas of small vessel ischemic disease. No acute parenchymal abnormality is seen. No abnormal area of contrast enhancement is noted. No extra-axial fluid collection is seen. There is no MRI evidence of acute ischemia/infarction. Mild mucosal thickening is seen involving both maxillary sinuses, left greater than right and scattered throughout the ethmoid air cells bilaterally. There are minimal bilateral mastoid effusions. Normal flow voids are seen within the major vascular structures surrounding the brain parenchyma. Impression: No acute parenchymal abnormality is seen. Electronically signed by: Efren Alvarez MD (08/05/2018 12:23 PM) [id number]
[2018-08-05] MEDS ORDERED: SODIUM CHLORIDE 3 % 500 ML IV ONE (12:30)
[2018-08-05 15:00] VITALS: BP 90/52
--- NOTE | 2018-08-05 15:31 | PDOC ---
SUBJECTIVE Subjective Headache and low back pain OBJECTIVE Objective Pt. recently treated for meningitis, with lumbar puncture, and CSF evaluation with WBC of more than 4000 concerning for bacterial infection. He was admitted on 07/25/2018 with complaints of back pain, nausea, vomiting, headaches of 1-day duration. He underwent MRI of the lumbar spine, which shows significant degenerative disk disease, which is thought to be the etiology of his back pain. Vital Signs Vital Signs Date Time Temp Pulse Resp B/P (MAP) Pulse Ox O2 Delivery O2 Flow Rate FiO2 08/05/18 11:00 98.1 74 18 102/51 (68) 94 Room Air 98.1 08/05/18 08:02 Room Air 08/05/18 08:01 89 112/70 08/05/18 08:00 Room Air 08/05/18 07:01 Room Air 08/05/18 07:00 97.5 89 18 112/70 (84) 97 Room Air 97.5 08/05/18 06:03 98 Room Air 08/05/18 05:33 Room Air 08/05/18 03:00 97.6 96 18 136/80 (98) 98 Room Air 97.6 08/05/18 02:43 98 08/05/18 01:43 Room Air 08/04/18 23:00 97.1 84 18 93/53 (66) 96 Room Air 97.1 08/04/18 22:36 Room Air 08/04/18 19:23 Room Air 08/04/18 19:17 Room Air 08/04/18 19:00 98.4 86 18 117/66 (83) 98 Room Air 98.4 I & O Intake and Output 08/05/18 07:00 Intake Total 1060 ml Balance 1060 ml Intake Oral 1060 ml # Voids 6 ASSESSMENT/PLAN Assessment/Plan 58 yo male with hx of DDD lumbar spine, chronic back pain. Recent treatment for meningitis, with recurrent headaches. Decreased WBC's from chemo treatment REC: Stabilize electrolyte condition; Request ID recommendation on safety of interventional spinal procedures following recent meningitis, as pt. may benefit from LESI for DDD May add Oxycontin 10-20 q 12hrs with oxycodone 10 for breakthrough q 4-6hrs COMMENT Lab Laboratory Tests Test 08/05/18 03:20 White Blood Count 3.1 x10^3/uL (4.0-11.0) Red Blood Count 3.33 x10^6/uL (4.30-5.70) Hemoglobin 11.4 g/dL (13.0-17.5) Hematocrit 31.9 % (39.0-53.0) Mean Corpuscular Volume 96 fL (79-100) Mean Corpuscular Hemoglobin 34 pg (25-35) Mean Corpuscular Hemoglobin Concent 36 g/dL (31-37) Red Cell Distribution Width 17.3 % (11.5-14.5) Platelet Count 182 x10^3/uL (140-400) Neutrophils (%) (Auto) 49 % (31-73) Lymphocytes (%) (Auto) 38 % (24-48) Monocytes (%) (Auto) 10 % (0-9) Eosinophils (%) (Auto) 2 % (0-3) Basophils (%) (Auto) 1 % (0-3) Neutrophils # (Auto) 1.5 x10^3uL (1.8-7.7) Lymphocytes # (Auto) 1.2 x10^3/uL (1.0-4.8) Monocytes # (Auto) 0.3 x10^3/uL (0.0-1.1) Eosinophils # (Auto) 0.1 x10^3/uL (0.0-0.7) Basophils # (Auto) 0.0 x10^3/uL (0.0-0.2) KHURRAM WOODS MD Aug 05, 2018 15:31
[2018-08-05 15:55] LABS: BILIRUBIN,URINE NEGATIVE (NEG); CLARITY,URINE CLEAR; COLOR,URINE AMBER; NITRITE,URINE NEGATIVE (NEG); PROTEIN,URINE NEGATIVE (NEG-TRACE); UROBILINOGEN,URINE 0.2 mg/dL (0.2 mg/dL)
[2018-08-05 16:16] LABS: BACTERIA,URINE FEW /HPF (0-FEW); RBC,URINE OCC /HPF (0-2)
[2018-08-05 16:17] LABS: HYALINE CASTS, URINE FEW /HPF
[2018-08-05 19:00] VITALS: BP 115/62
--- NOTE | 2018-08-05 19:10 | PDOC2 ---
UROLOGY CONSULT Date of Consult Date of Consult DATE: 08/05/18 TIME: 19:05 Reason for Consult Reason for Consult: microscopic hematuria Referring Physician Referring Physician: Dr. Monroe Source Source: Chart review, Patient History of Present Illness Reason for Visit: 58 yo male admitted for headache, back pain. UA 07/31/18 noted to have 20-40 RBCs / hpf on microscopy. He denies gross hematuria any time in the past. NO history - denies void difficulty, kidney stones, infections, or procedures. CT abdomen /pelvis 07/12/18 to eval abdominal pain showed mild bilateral perinephric stranding, no stones or other concerning findings. Past Medical History Cardiovascular: HTN, Hyperlipidemia Pulmonary: No pertinent hx GI: Diverticulosis, GERD, Gastritis Heme/Onc: No pertinent hx Hepatobiliary: No pertinent hx Psych: Anxiety Rheumatologic: No pertinent hx Infectious disease: No pertinent hx Renal/: No pertinent hx Endocrine: No pertinent hx Past Surgical History Past Surgical History: Tonsillectomy Family History Family History: No Significant Social History ALCOHOL: none Drugs: None Current Medications Current Medications Current Medications Gadobutrol (Gadavist) 10 mmol 1X ONCE IV Last administered on 08/05/18at 11:58 ; Start 08/05/18 at 11:45; Stop 08/05/18 at 11:46; Status DC Sodium Chloride 500 ml @ 50 mls/hr 1X ONCE IV Last administered on at 17:56; Start 08/05/18 at 12:30; Stop 08/05/18 at 22:29 Allergies Allergies: Coded Allergies: amoxicillin (Verified Allergy, Intermediate, 07/17/18) TOLERATES AMPICILLIN IV Penicillins (Verified Adverse Reaction, Intermediate, Nausea and Vomiting , 07/06/18) ROS Review Of Systems: Except as stated in HPI: CONSTITUTIONAL: No fever or chills EYES: No recent changes SKIN: No rash or itching CARDIOVASCULAR: No chest pain, syncope, palpitations, or edema RESPIRATORY: No SOB or cough GASTROINTESTINAL: No nausea, vomiting or abdominal pain NEUROLOGICAL: No headaches or weakness ENDOCRINE: No cold or heat intolerance GENITOURINARY: No urgency or frequency of urination MUSCULOSKELETAL: No back pain or joint pain LYMPHATICS: No enlarged lymph nodes PSYCHIATRIC: No anxiety or depression Physical Exam Physical Exam: General: Pleasant, no acute distress, well groomed Eyes: conjunctiva anicteric, eyes full range of motion ENT: moist oral mucosa, normal dentition Neck: Trachea midline, no masses Respiratory: unlabored breathing, not using accessory muscles, no crackles or wheezes Cardiovascular: Regular rate and rhythm, no peripheral edema Abdomen: nontender, nondistended, no hepatosplenomegaly, no masses Skin: no rashes or skin lesions on visualized skin Psych: normal mood, affect. Alert and oriented x 3. Vitals VITALS Vital Signs Date Time Temp Pulse Resp B/P (MAP) Pulse Ox O2 Delivery O2 Flow Rate FiO2 08/05/18 17:56 Room Air 08/05/18 15:00 96.6 80 18 90/52 (65) 96 96.6 Labs Labs Laboratory Tests Test 08/04/18 07:22 08/04/18 16:30 08/05/18 03:20 08/05/18 15:38 White Blood Count 3.0 x10^3/uL (4.0-11.0) 3.1 x10^3/uL (4.0-11.0) Red Blood Count 3.46 x10^6/uL (4.30-5.70) 3.33 x10^6/uL (4.30-5.70) Hemoglobin 11.7 g/dL (13.0-17.5) 11.4 g/dL (13.0-17.5) Hematocrit 32.8 % (39.0-53.0) 31.9 % (39.0-53.0) Mean Corpuscular Volume 95 fL (79-100) 96 fL (79-100) Mean Corpuscular Hemoglobin 34 pg (25-35) 34 pg (25-35) Mean Corpuscular Hemoglobin Concent 36 g/dL (31-37) 36 g/dL (31-37) Red Cell Distribution Width 18.0 % (11.5-14.5) 17.3 % (11.5-14.5) Platelet Count 182 x10^3/uL (140-400) 182 x10^3/uL (140-400) Neutrophils (%) (Auto) 58 % (31-73) 49 % (31-73) Lymphocytes (%) (Auto) 32 % (24-48) 38 % (24-48) Monocytes (%) (Auto) 8 % (0-9) 10 % (0-9) Eosinophils (%) (Auto) 2 % (0-3) 2 % (0-3) Basophils (%) (Auto) 1 % (0-3) 1 % (0-3) Neutrophils # (Auto) 1.7 x10^3uL (1.8-7.7) 1.5 x10^3uL (1.8-7.7) Lymphocytes # (Auto) 0.9 x10^3/uL (1.0-4.8) 1.2 x10^3/uL (1.0-4.8) Monocytes # (Auto) 0.2 x10^3/uL (0.0-1.1) 0.3 x10^3/uL (0.0-1.1) Eosinophils # (Auto) 0.1 x10^3/uL (0.0-0.7) 0.1 x10^3/uL (0.0-0.7) Basophils # (Auto) 0.0 x10^3/uL (0.0-0.2) 0.0 x10^3/uL (0.0-0.2) Sodium Level 121 mmol/L (136-145) Potassium Level 3.5 mmol/L (3.5-5.1) Chloride Level 86 mmol/L (98-107) Carbon Dioxide Level 25 mmol/L (21-32) Anion Gap 10 (6-14) Blood Urea Nitrogen 9 mg/dL (8-26) Creatinine 0.6 mg/dL (0.7-1.3) Estimated GFR (Cockcroft-Gault) 138.9 Glucose Level 125 mg/dL (70-99) Serum Osmolality 253 mOsm/Kg (279-304) Calcium Level 8.2 mg/dL (8.5-10.1) Magnesium Level 1.9 mg/dL (1.8-2.4) Urine Random Sodium <60 mmol/L (Not Estab.) Urine Collection Type Unknown Urine Color Ally Urine Clarity Clear Urine pH 5.0 Urine Specific [place] 1.025 Urine Protein Negative mg/dL (NEG-TRACE) Urine Glucose (UA) Negative mg/dL (NEG) Urine Ketones (Stick) Negative mg/dL (NEG) Urine Blood Negative (NEG) Urine Nitrite Negative (NEG) Urine Bilirubin Negative (NEG) Urine Urobilinogen Dipstick 0.2 mg/dL (0.2 mg/dL) Urine Leukocyte Esterase Negative (NEG) Urine RBC Occ /HPF (0-2) Urine WBC 1-4 /HPF (0-4) Urine Bacteria Few /HPF (0-FEW) Urine Hyaline Casts Few /HPF Urine Mucus Mod /LPF Laboratory Tests Test 08/05/18 03:20 08/05/18 15:38 White Blood Count 3.1 x10^3/uL (4.0-11.0) Red Blood Count 3.33 x10^6/uL (4.30-5.70) Hemoglobin 11.4 g/dL (13.0-17.5) Hematocrit 31.9 % (39.0-53.0) Mean Corpuscular Volume 96 fL (79-100) Mean Corpuscular Hemoglobin 34 pg (25-35) Mean Corpuscular Hemoglobin Concent 36 g/dL (31-37) Red Cell Distribution Width 17.3 % (11.5-14.5) Platelet Count 182 x10^3/uL (140-400) Neutrophils (%) (Auto) 49 % (31-73) Lymphocytes (%) (Auto) 38 % (24-48) Monocytes (%) (Auto) 10 % (0-9) Eosinophils (%) (Auto) 2 % (0-3) Basophils (%) (Auto) 1 % (0-3) Neutrophils # (Auto) 1.5 x10^3uL (1.8-7.7) Lymphocytes # (Auto) 1.2 x10^3/uL (1.0-4.8) Monocytes # (Auto) 0.3 x10^3/uL (0.0-1.1) Eosinophils # (Auto) 0.1 x10^3/uL (0.0-0.7) Basophils # (Auto) 0.0 x10^3/uL (0.0-0.2) Urine Collection Type Unknown Urine Color Ally Urine Clarity Clear Urine pH 5.0 Urine Specific [place] 1.025 Urine Protein Negative mg/dL (NEG-TRACE) Urine Glucose (UA) Negative mg/dL (NEG) Urine Ketones (Stick) Negative mg/dL (NEG) Urine Blood Negative (NEG) Urine Nitrite Negative (NEG) Urine Bilirubin Negative (NEG) Urine Urobilinogen Dipstick 0.2 mg/dL (0.2 mg/dL) Urine Leukocyte Esterase Negative (NEG) Urine RBC Occ /HPF (0-2) Urine WBC 1-4 /HPF (0-4) Urine Bacteria Few /HPF (0-FEW) Urine Hyaline Casts Few /HPF Urine Mucus Mod /LPF Assessment/Plan Assessment/Plan Microscopic hematuria: asymptomatic with unremarkable recent CT abdomen / pelvis. Recommend outpatient followup for office cystoscopy - not urgent. Patient can call [phone] to schedule appt. Call with questions. NAOMIE BRUCE MD Aug 05, 2018 19:10
[2018-08-05] MEDS: TAMSULOSIN 0.4 MG CAP.ER.24H. PO SCH (21:03)
[2018-08-05 23:00] VITALS: BP 110/67
[2018-08-06] MEDS: oxyCODONE IR 5 MG TABLET PO PRN ×5 (02:22→22:28)
[2018-08-06 02:53] VITALS: BP 118/70
[2018-08-06] MEDS: HEPARIN for SUB-Q USE 5,000 UNIT/ML VIAL. SQ SCH ×3 (05:59→20:34)
[2018-08-06 07:00] VITALS: BP 129/66
[2018-08-06] MEDS: ALLOPURINOL 300 MG TABLET. PO SCH (08:00)
[2018-08-06] MEDS: CITALOPRAM 20 MG TABLET. PO SCH (08:00)
[2018-08-06] MEDS: MELOXICAM 7.5 MG TABLET PO SCH (08:00)
[2018-08-06] MEDS: ASPIRIN 325 MG TABLET PO SCH (08:00)
[2018-08-06] MEDS: SENNOSIDES/DOCUSATE 8.6/50MG TABLET. PO SCH ×2 (08:00→20:33)
[2018-08-06] MEDS: ACYCLOVIR 200 MG CAPSULE. PO SCH ×2 (08:01→20:33)
[2018-08-06] MEDS: PANTOPRAZOLE 40 MG TABLET.DR. PO SCH (08:01)
[2018-08-06] MEDS: GABAPENTIN 400 MG CAPSULE. PO SCH ×2 (08:01→20:33)
[2018-08-06] MEDS: FLUTICASONE 50MCG/NASAL SPRAY 16GM BOTTLE. NS SCH (08:03)
[2018-08-06] MEDS: LOSARTAN POTASSIUM 50 MG TABLET. PO SCH (09:02)
[2018-08-06] MEDS: MORPHINE SULFATE 10 MG/ML VIAL. IV PRN ×2 (09:04→20:33)
--- NOTE | 2018-08-06 09:16 | PDOC ---
Infectious Disease Note Vital Sign Vital Signs Vital Signs Date Time Temp Pulse Resp B/P (MAP) Pulse Ox O2 Delivery O2 Flow Rate FiO2 08/06/18 07:25 9 Room Air 08/06/18 02:53 97.6 101 18 118/70 (86) 97.6 Labs Lab Laboratory Tests Test 08/05/18 15:38 Urine Collection Type Unknown Urine Color Ally Urine Clarity Clear Urine pH 5.0 Urine Specific [place] 1.025 Urine Protein Negative mg/dL (NEG-TRACE) Urine Glucose (UA) Negative mg/dL (NEG) Urine Ketones (Stick) Negative mg/dL (NEG) Urine Blood Negative (NEG) Urine Nitrite Negative (NEG) Urine Bilirubin Negative (NEG) Urine Urobilinogen Dipstick 0.2 mg/dL (0.2 mg/dL) Urine Leukocyte Esterase Negative (NEG) Urine RBC Occ /HPF (0-2) Urine WBC 1-4 /HPF (0-4) Urine Bacteria Few /HPF (0-FEW) Urine Hyaline Casts Few /HPF Urine Mucus Mod /LPF Objective Assessment dictated Plan Plan of Care see dictation GENEVA LONGORIA MD Aug 06, 2018 09:16
[2018-08-06 09:40] LABS: CALCIUM 8.9 mg/dL (8.5-10.1); CREATININE 0.8 mg/dL (0.7-1.3); GFR 99.6; POTASSIUM 3.8 mmol/L (3.5-5.1)
--- NOTE | 2018-08-06 10:25 | PDOC ---
PROGRESS NOTES Subjective Subjective HPI - f/u of IgG kappa multiple myeloma. ROS - no headaches Objective Objective Vital Signs Date Time Temp Pulse Resp B/P (MAP) Pulse Ox O2 Delivery O2 Flow Rate FiO2 08/06/18 09:36 Room Air 08/06/18 09:02 93 129/66 08/06/18 07:25 9 08/06/18 07:00 97.9 18 97.9 Intake and Output 08/06/18 07:00 Intake Total 890 ml Balance 890 ml Intake Oral 890 ml # Voids 3 # Bowel Movements 1 Physical Exam Heart: Normal S1, Normal S2 General: Alert, Oriented X3 Lungs: Clear to auscultation Neuro: Normal speech Psych/Mental Status: Mental status NL Assessment Assessment Problems Medical Problems: (1) Hypomagnesemia Status: Acute (2) Hyponatremia Status: Acute (3) Microscopic hematuria Status: Acute (4) Multiple myeloma Status: Acute (5) Weakness Status: Acute IMPRESSION AND PLAN: 1. IgG kappa multiple myeloma. He was diagnosed on 06/25/2018. He has received one cycle of chemotherapy. He has received Decadron 40 mg daily for 4 days from 06/25/2018. He was then started on chemotherapy with Velcade, Decadron and Revlimid on 07/06/2018. Revlimid was not available until 07/08/2018 and he took one dose on 07/08/2018 and another dose on 07/13/2018 and another one on 07/14/2018 after which he was diagnosed with meningitis and hence the Revlimid was put on hold. He also received Velcade on 07/06/2018 and cycle number day 1, day #4 was given on 07/09/2018 and day #8 of Velcade was given on 07/13/2018. He has not had any chemo or revlimid since 07/13/18. Second cycle was deferred due to meningitis and generalized weakness. I have advised him to follow up with me next week for reevaluation and if he is feeling better, I will plan to initiate second cycle of chemotherapy. He is responding very well. Serum protein electrophoresis and IgA levels have significantly improved as described above. Plan to start cycle 2 08/10/18. 2. Back pain. MRI of the lumbar spine on 07/26/2018 revealed degenerative disk disease, greatest at the L3-L4 and L4-L5. Multiple scattered edematous, enhancing marrow lesions were seen throughout the visualized spine and iliac bones consistent with multiple myeloma. However, these lesions are not responsible for his pain. I discussed with the radiologist. Management per Dr Malik Ordoñez for back pain due to degenerative disc disease. 3. Hyponatremia and hypokalemia. Continue management per primary team. Na worse at 121. Consult nephrology. MRI brain: 08/05/18: No acute parenchymal abnormality is seen. 4. 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 Monitor. 5. Meningitis - resolved, I d/w Dr Johnson. Comment Review of Relevant I have reviewed the following items cristina (where applicable) has been applied. Labs Laboratory Tests Test 08/04/18 16:30 08/05/18 03:20 08/05/18 15:38 08/06/18 08:50 Urine Random Sodium <60 mmol/L (Not Estab.) White Blood Count 3.1 x10^3/uL (4.0-11.0) Red Blood Count 3.33 x10^6/uL (4.30-5.70) Hemoglobin 11.4 g/dL (13.0-17.5) Hematocrit 31.9 % (39.0-53.0) Mean Corpuscular Volume 96 fL (79-100) Mean Corpuscular Hemoglobin 34 pg (25-35) Mean Corpuscular Hemoglobin Concent 36 g/dL (31-37) Red Cell Distribution Width 17.3 % (11.5-14.5) Platelet Count 182 x10^3/uL (140-400) Neutrophils (%) (Auto) 49 % (31-73) Lymphocytes (%) (Auto) 38 % (24-48) Monocytes (%) (Auto) 10 % (0-9) Eosinophils (%) (Auto) 2 % (0-3) Basophils (%) (Auto) 1 % (0-3) Neutrophils # (Auto) 1.5 x10^3uL (1.8-7.7) Lymphocytes # (Auto) 1.2 x10^3/uL (1.0-4.8) Monocytes # (Auto) 0.3 x10^3/uL (0.0-1.1) Eosinophils # (Auto) 0.1 x10^3/uL (0.0-0.7) Basophils # (Auto) 0.0 x10^3/uL (0.0-0.2) Urine Collection Type Unknown Urine Color Ally Urine Clarity Clear Urine pH 5.0 Urine Specific [place] 1.025 Urine Protein Negative mg/dL (NEG-TRACE) Urine Glucose (UA) Negative mg/dL (NEG) Urine Ketones (Stick) Negative mg/dL (NEG) Urine Blood Negative (NEG) Urine Nitrite Negative (NEG) Urine Bilirubin Negative (NEG) Urine Urobilinogen Dipstick 0.2 mg/dL (0.2 mg/dL) Urine Leukocyte Esterase Negative (NEG) Urine RBC Occ /HPF (0-2) Urine WBC 1-4 /HPF (0-4) Urine Bacteria Few /HPF (0-FEW) Urine Hyaline Casts Few /HPF Urine Mucus Mod /LPF Sodium Level 134 mmol/L (136-145) Potassium Level 3.8 mmol/L (3.5-5.1) Chloride Level 98 mmol/L (98-107) Carbon Dioxide Level 28 mmol/L (21-32) Anion Gap 8 (6-14) Blood Urea Nitrogen 17 mg/dL (8-26) Creatinine 0.8 mg/dL (0.7-1.3) Estimated GFR (Cockcroft-Gault) 99.6 Glucose Level 76 mg/dL (70-99) Calcium Level 8.9 mg/dL (8.5-10.1) Laboratory Tests Test 08/05/18 15:38 08/06/18 08:50 Urine Collection Type Unknown Urine Color Ally Urine Clarity Clear Urine pH 5.0 Urine Specific [place] 1.025 Urine Protein Negative mg/dL (NEG-TRACE) Urine Glucose (UA) Negative mg/dL (NEG) Urine Ketones (Stick) Negative mg/dL (NEG) Urine Blood Negative (NEG) Urine Nitrite Negative (NEG) Urine Bilirubin Negative (NEG) Urine Urobilinogen Dipstick 0.2 mg/dL (0.2 mg/dL) Urine Leukocyte Esterase Negative (NEG) Urine RBC Occ /HPF (0-2) Urine WBC 1-4 /HPF (0-4) Urine Bacteria Few /HPF (0-FEW) Urine Hyaline Casts Few /HPF Urine Mucus Mod /LPF Sodium Level 134 mmol/L (136-145) Potassium Level 3.8 mmol/L (3.5-5.1) Chloride Level 98 mmol/L (98-107) Carbon Dioxide Level 28 mmol/L (21-32) Anion Gap 8 (6-14) Blood Urea Nitrogen 17 mg/dL (8-26) Creatinine 0.8 mg/dL (0.7-1.3) Estimated GFR (Cockcroft-Gault) 99.6 Glucose Level 76 mg/dL (70-99) Calcium Level 8.9 mg/dL (8.5-10.1) Medications Current Medications Sodium Chloride 1,000 ml @ 1,000 mls/hr Q1H IV Last administered on at 14:04; Start 08/02/18 at 13:26; Stop 08/02/18 at 14:25; Status DC Fentanyl Citrate (Fentanyl 2ml Vial) 50 mcg 1X ONCE IV Last administered on at 15:13; Start 08/02/18 at 15:15; Stop 08/02/18 at 15:16; Status DC Ondansetron HCl (Zofran) 4 mg 1X ONCE IV Last administered on 08/02/18at 15:12 ; Start 08/02/18 at 15:15; Stop 08/02/18 at 15:16; Status DC Magnesium Sulfate 50 ml @ 25 mls/hr 1X ONCE IV Last administered on at 17:24; Start 08/02/18 at 17:00; Stop 08/02/18 at 18:59; Status DC Fentanyl Citrate (Fentanyl 2ml Vial) 50 mcg 1X ONCE IV Last administered on at 17:04; Start 08/02/18 at 17:00; Stop 08/02/18 at 17:01; Status DC Ondansetron HCl (Zofran) 4 mg PRN Q8HRS PRN IV NAUSEA/VOMITING; Start at 17:00; Stop 08/02/18 at 20:53; Status DC Ondansetron HCl (Zofran) 4 mg 1X ONCE IV Last administered on 08/02/18at 17:20 ; Start 08/02/18 at 17:15; Stop 08/02/18 at 17:16; Status DC Ondansetron HCl (Zofran) 4 mg PRN Q6HRS PRN IV NAUSEA/VOMITING, 2ND CHOICE; Start 08/02/18 at 20:15 Prochlorperazine Edisylate (Compazine) 10 mg PRN Q6HRS PRN IV NAUSEA/VOMITING, 1ST CHOICE Last administered on 08/04/18at 07:59; Start 08/02/18 at 20:15 Morphine Sulfate (Morphine Sulfate) 10 mg PRN Q4HRS PRN IV PAIN Last administered on 08/02/18at 20:34; Start 08/02/18 at 20:15; Stop 08/02/18 at 22 :03; Status DC Oxycodone HCl (Roxicodone) 5 mg PRN Q4HRS PRN PO MILD PAIN Last administered on 08/03/18at 14:14; Start 08/02/18 at 20:15 Oxycodone HCl (Roxicodone) 10 mg PRN Q4HRS PRN PO MODERATE PAIN, SEVERE PAIN Last administered on 08/06/18at 07:25; Start 08/02/18 at 20:15 Ketorolac Tromethamine (Toradol 30mg Vial) 30 mg PRN Q6HRS PRN IV INFLAMMATION ; Start 08/02/18 at 20:15; Stop 08/07/18 at 20:14 Acetaminophen (Tylenol) 650 mg PRN Q6HRS PRN PO Headaches, Temp > 101.5F; Start 08/02/18 at 20:15 Senna/Docusate Sodium (Senna Plus) 1 tab BID PO Last administered on at 08:00; Start 08/02/18 at 21:00 Lactulose (Lactulose) 20 gm PRN Q12HR PRN PO CONSTIPATION; Start 08/02/18 at 20:15 Bisacodyl (Dulcolax Supp) 10 mg PRN DAILY PRN [place] CONSTIPATION; Start 08/02/18 at 20:15 Heparin Sodium (Porcine) (Heparin Sodium) 5,000 unit Q8HRS SQ Last administered on 08/04/18at 15:02; Start 08/02/18 at 22:00 Allopurinol (Zyloprim) 300 mg DAILY PO Last administered on 08/06/18at 08:00; Start 08/03/18 at 09:00 Aspirin (Debbie Aspirin) 325 mg DAILY PO Last administered on 08/06/18at 08:00; Start 08/03/18 at 09:00 Tamsulosin HCl (Flomax) 0.4 mg QHS PO Last administered on 08/05/18at 21:03; Start 08/02/18 at 21:00 Acyclovir (Zovirax) 800 mg BID PO Last administered on 08/06/18at 08:01; Start 08/02/18 at 21:00 Citalopram Hydrobromide (CeleXA) 20 mg DAILY PO Last administered on at 08:00; Start 08/03/18 at 09:00 Fluticasone Propionate (Flonase) 2 spray DAILY NS ; Start 08/03/18 at 09:00 Gabapentin (Neurontin) 800 mg BID PO Last administered on 08/06/18at 08:01; Start 08/02/18 at 21:00 Losartan Potassium (Cozaar) 100 mg DAILY PO Last administered on 08/06/18at 09: 02; Start 08/03/18 at 09:00 Meloxicam (Mobic) 7.5 mg DAILY PO Last administered on 08/06/18at 08:00; Start 08/03/18 at 09:00 Pantoprazole Sodium (Protonix) 40 mg DAILYAC PO Last administered on at 08:01; Start 08/03/18 at 07:30 Magnesium Sulfate/ Dextrose 100 ml @ 25 mls/hr 1X ONCE IV Last administered on 08/02/18at 21:55; Start 08/02/18 at 21:00; Stop 08/03/18 at 00:59; Status DC Labetalol HCl (Normodyne Iv Push) 10 mg PRN Q4HRS PRN IVP HTN, SEE COMMENTS, 2ND CHOICE; Start 08/02/18 at 20:30 Hydralazine HCl (Apresoline) 10 mg PRN TID PO ; Start 08/02/18 at 20:30 Enalaprilat (Vasotec Inj) 1.25 mg PRN Q6HRS PRN IVP HTN, SEE COMMENTS, 1ST CHOICE; Start 08/02/18 at 20:30 Hydrochlorothiazide (Hydrodiuril) 25 mg DAILY PO Last administered on at 08:31; Start 08/03/18 at 09:00; Stop 08/03/18 at 12:19; Status DC Non-Formulary Medication 1 ea DAILY PO ; Start 08/03/18 at 09:00; Stop at 13:53; Status DC Morphine Sulfate (Morphine Sulfate) 10 mg PRN Q4HRS PRN IV SEVERE PAIN Last administered on 08/06/18at 09:04; Start 08/02/18 at 22:15 Pharmacy Consult (C.diff Med Screen By Rx) 1 each 1X ONCE [facility] ; Start 08/03/18 at 09:00; Stop 08/03/18 at 09:01; Status DC Gadobutrol (Gadavist) 10 mmol 1X ONCE IV Last administered on 08/05/18at 11:58 ; Start 08/05/18 at 11:45; Stop 08/05/18 at 11:46; Status DC Sodium Chloride 500 ml @ 50 mls/hr 1X ONCE IV Last administered on at 17:56; Start 08/05/18 at 12:30; Stop 08/05/18 at 22:29; Status DC Active Scripts Active Gabapentin 300 Mg Capsule 800 Mg PO BID Flomax (Tamsulosin Hcl) 0.4 Mg Cap.er.24h 0.4 Mg PO QHS Reported Revlimid (Lenalidomide) 25 Mg Capsule 25 Mg PO Dexamethasone 4 Mg Tablet 40 Mg PO WEEKLY Acyclovir 800 Mg Tablet 1 Tab PO BID Aspirin 325 Mg Tablet 1 Tab PO DAILY Hyzaar 100-25 Tablet (Losartan/Hydrochlorothiazide) 1 Each Tablet 1 Each PO DAILY Hydrocodone-Apap 5-325 (Hydrocodone Bit/Acetaminophen) 1 Each Tablet 1 Tab PO PRN Q6HRS PRN Escitalopram Oxalate 10 Mg Tablet 10 Mg PO DAILY Flonase Allergy Relief (Fluticasone Propionate) 9.9 Ml [place].susp 2 Sprays NS DAILY Meloxicam 7.5 Mg Tablet 7.5 Mg PO DAILY Prilosec Otc (Omeprazole Magnesium) 20 Mg Tablet.dr 40 Mg PO DAILY Allopurinol 300 Mg Tablet 300 Mg PO DAILY Vitals/I & O Vital Sign - Last 24 Hours 08/05/18 08/05/18 08/05/18 08/05/18 11:00 15:00 16:22 19:00 Temp 98.1 96.6 98.4 98.1 96.6 98.4 Pulse 74 80 85 Resp 18 18 18 B/P (MAP) 102/51 (68) 90/52 (65) 115/62 (79) Pulse Ox 94 96 92 O2 Delivery Room Air Room Air Room Air Room Air 08/05/18 08/05/18 08/05/18 08/05/18 19:16 19:37 19:52 21:03 Pulse Ox 96 96 96 O2 Delivery Room Air Room Air Room Air 08/05/18 08/06/18 08/06/18 08/06/18 23:00 02:22 02:53 03:22 Temp 98.2 97.6 98.2 97.6 Pulse 88 101 Resp 18 18 B/P (MAP) 110/67 (81) 118/70 (86) Pulse Ox 96 96 9 9 O2 Delivery Room Air Room Air Room Air 08/06/18 08/06/18 08/06/18 08/06/18 07:00 07:25 09:02 09:04 Temp 97.9 97.9 Pulse 93 93 Resp 18 B/P (MAP) 129/66 (87) 129/66 Pulse Ox 99 9 O2 Delivery Room Air Room Air Room Air 08/06/18 08/06/18 09:05 09:36 O2 Delivery Room Air Room Air Intake and Output 08/05/18 08/05/18 08/06/18 15:00 23:00 07:00 Intake Total 290 ml 200 ml 400 ml Balance 290 ml 200 ml 400 ml PHILLIP FUNEZ MD Aug 06, 2018 10:25
[2018-08-06 11:00] VITALS: BP 121/71
--- NOTE | 2018-08-06 11:08 | PDOC ---
Renal-Progress Notes Subjective Notes Notes NO NEW COMPLAINTS History of Present Illness Hx of present illness STABLE Vitals Vitals Vital Signs Date Time Temp Pulse Resp B/P (MAP) Pulse Ox O2 Delivery O2 Flow Rate FiO2 08/06/18 09:36 Room Air 08/06/18 09:02 93 129/66 08/06/18 07:25 9 08/06/18 07:00 97.9 18 97.9 Weight Weight [ ] I.O. Intake and Output Intake and Output 08/06/18 07:00 Intake Total 890 ml Balance 890 ml Intake Oral 890 ml # Voids 3 # Bowel Movements 1 Labs Labs Laboratory Tests Test 08/05/18 15:38 08/06/18 08:50 Urine Collection Type Unknown Urine Color Ally Urine Clarity Clear Urine pH 5.0 Urine Specific [place] 1.025 Urine Protein Negative mg/dL (NEG-TRACE) Urine Glucose (UA) Negative mg/dL (NEG) Urine Ketones (Stick) Negative mg/dL (NEG) Urine Blood Negative (NEG) Urine Nitrite Negative (NEG) Urine Bilirubin Negative (NEG) Urine Urobilinogen Dipstick 0.2 mg/dL (0.2 mg/dL) Urine Leukocyte Esterase Negative (NEG) Urine RBC Occ /HPF (0-2) Urine WBC 1-4 /HPF (0-4) Urine Bacteria Few /HPF (0-FEW) Urine Hyaline Casts Few /HPF Urine Mucus Mod /LPF Sodium Level 134 mmol/L (136-145) Potassium Level 3.8 mmol/L (3.5-5.1) Chloride Level 98 mmol/L (98-107) Carbon Dioxide Level 28 mmol/L (21-32) Anion Gap 8 (6-14) Blood Urea Nitrogen 17 mg/dL (8-26) Creatinine 0.8 mg/dL (0.7-1.3) Estimated GFR (Cockcroft-Gault) 99.6 Glucose Level 76 mg/dL (70-99) Calcium Level 8.9 mg/dL (8.5-10.1) Assessment Assessment IMP HYPOOSMOTIC [id number] WITH NA OF 134 MULTIPLE MYELOMA PLAN CONT FLUID RESTRICTION WILL FOLLOW ZIA PICKENS MD Aug 06, 2018 11:08
--- NOTE | 2018-08-06 12:52 | PDOC ---
PROGRESS NOTES Chief Complaint Chief Complaint he is doing well, he did have normalizationo f his electrolytes, he has questions about why his sodium fell, i answered them, otherwise, no other concerns noted at this time History of Present Illness History of Present Illness Assessment/Plan Assessment A/P: - continue expectant management - patient improving Nausea - Likely related to headache, chemo. Has been unable to take PO at home Hypomagnesemia - likely etiology of his weakness, will replace, follow daily with K Headache - CT negative for abnormality, is still recovering from meningitis, will cont acyclovir Hyponatremia - will fluid restrict may be SIADH, CHK URINE NA, SERUM OSMOLALITY SIRS - does not appear to have an infectious source, will culture and hold off on antibiotics at this time. Multiple Myeloma - on revlimid.consult Oncology. Has bone pain in multiple locations, will give him a moderate pain regimen HTN urgency - will need aggressive prns, cont his home meds. This could be pain related. Will repeat troponin as well Urinary retention - flomax, likely this is BPH vs neurogenic bladder, PPX - heparin FULL CODE tele with hypomagnesemia, at least 2 midnights. Vitals Vitals Vital Signs Date Time Temp Pulse Resp B/P (MAP) Pulse Ox O2 Delivery O2 Flow Rate FiO2 08/06/18 12:40 Room Air 08/06/18 09:02 93 129/66 08/06/18 07:25 9 08/06/18 07:00 97.9 18 97.9 Physical Exam General: Alert, Oriented X3 Heart: Normal S1, Normal S2 Lungs: Clear Abdomen: Normal bowel sounds Extremities: No clubbing Skin: No rashes Labs LABS Laboratory Tests Test 08/05/18 15:38 08/06/18 08:50 Urine Collection Type Unknown Urine Color Ally Urine Clarity Clear Urine pH 5.0 Urine Specific [place] 1.025 Urine Protein Negative mg/dL (NEG-TRACE) Urine Glucose (UA) Negative mg/dL (NEG) Urine Ketones (Stick) Negative mg/dL (NEG) Urine Blood Negative (NEG) Urine Nitrite Negative (NEG) Urine Bilirubin Negative (NEG) Urine Urobilinogen Dipstick 0.2 mg/dL (0.2 mg/dL) Urine Leukocyte Esterase Negative (NEG) Urine RBC Occ /HPF (0-2) Urine WBC 1-4 /HPF (0-4) Urine Bacteria Few /HPF (0-FEW) Urine Hyaline Casts Few /HPF Urine Mucus Mod /LPF Sodium Level 134 mmol/L (136-145) Potassium Level 3.8 mmol/L (3.5-5.1) Chloride Level 98 mmol/L (98-107) Carbon Dioxide Level 28 mmol/L (21-32) Anion Gap 8 (6-14) Blood Urea Nitrogen 17 mg/dL (8-26) Creatinine 0.8 mg/dL (0.7-1.3) Estimated GFR (Cockcroft-Gault) 99.6 Glucose Level 76 mg/dL (70-99) Calcium Level 8.9 mg/dL (8.5-10.1) Assessment and Plan Assessmemt and Plan Problems Medical Problems: (1) Hypomagnesemia Status: Acute (2) Hyponatremia Status: Acute (3) Microscopic hematuria Status: Acute (4) Multiple myeloma Status: Acute (5) Weakness Status: Acute Comment Review of Relevant I have reviewed the following items cristina (where applicable) has been applied. Labs Laboratory Tests Test 08/04/18 16:30 08/05/18 03:20 08/05/18 15:38 08/06/18 08:50 Urine Random Sodium <60 mmol/L (Not Estab.) White Blood Count 3.1 x10^3/uL (4.0-11.0) Red Blood Count 3.33 x10^6/uL (4.30-5.70) Hemoglobin 11.4 g/dL (13.0-17.5) Hematocrit 31.9 % (39.0-53.0) Mean Corpuscular Volume 96 fL (79-100) Mean Corpuscular Hemoglobin 34 pg (25-35) Mean Corpuscular Hemoglobin Concent 36 g/dL (31-37) Red Cell Distribution Width 17.3 % (11.5-14.5) Platelet Count 182 x10^3/uL (140-400) Neutrophils (%) (Auto) 49 % (31-73) Lymphocytes (%) (Auto) 38 % (24-48) Monocytes (%) (Auto) 10 % (0-9) Eosinophils (%) (Auto) 2 % (0-3) Basophils (%) (Auto) 1 % (0-3) Neutrophils # (Auto) 1.5 x10^3uL (1.8-7.7) Lymphocytes # (Auto) 1.2 x10^3/uL (1.0-4.8) Monocytes # (Auto) 0.3 x10^3/uL (0.0-1.1) Eosinophils # (Auto) 0.1 x10^3/uL (0.0-0.7) Basophils # (Auto) 0.0 x10^3/uL (0.0-0.2) Urine Collection Type Unknown Urine Color Ally Urine Clarity Clear Urine pH 5.0 Urine Specific [place] 1.025 Urine Protein Negative mg/dL (NEG-TRACE) Urine Glucose (UA) Negative mg/dL (NEG) Urine Ketones (Stick) Negative mg/dL (NEG) Urine Blood Negative (NEG) Urine Nitrite Negative (NEG) Urine Bilirubin Negative (NEG) Urine Urobilinogen Dipstick 0.2 mg/dL (0.2 mg/dL) Urine Leukocyte Esterase Negative (NEG) Urine RBC Occ /HPF (0-2) Urine WBC 1-4 /HPF (0-4) Urine Bacteria Few /HPF (0-FEW) Urine Hyaline Casts Few /HPF Urine Mucus Mod /LPF Sodium Level 134 mmol/L (136-145) Potassium Level 3.8 mmol/L (3.5-5.1) Chloride Level 98 mmol/L (98-107) Carbon Dioxide Level 28 mmol/L (21-32) Anion Gap 8 (6-14) Blood Urea Nitrogen 17 mg/dL (8-26) Creatinine 0.8 mg/dL (0.7-1.3) Estimated GFR (Cockcroft-Gault) 99.6 Glucose Level 76 mg/dL (70-99) Calcium Level 8.9 mg/dL (8.5-10.1) Laboratory Tests Test 08/05/18 15:38 08/06/18 08:50 Urine Collection Type Unknown Urine Color Ally Urine Clarity Clear Urine pH 5.0 Urine Specific [place] 1.025 Urine Protein Negative mg/dL (NEG-TRACE) Urine Glucose (UA) Negative mg/dL (NEG) Urine Ketones (Stick) Negative mg/dL (NEG) Urine Blood Negative (NEG) Urine Nitrite Negative (NEG) Urine Bilirubin Negative (NEG) Urine Urobilinogen Dipstick 0.2 mg/dL (0.2 mg/dL) Urine Leukocyte Esterase Negative (NEG) Urine RBC Occ /HPF (0-2) Urine WBC 1-4 /HPF (0-4) Urine Bacteria Few /HPF (0-FEW) Urine Hyaline Casts Few /HPF Urine Mucus Mod /LPF Sodium Level 134 mmol/L (136-145) Potassium Level 3.8 mmol/L (3.5-5.1) Chloride Level 98 mmol/L (98-107) Carbon Dioxide Level 28 mmol/L (21-32) Anion Gap 8 (6-14) Blood Urea Nitrogen 17 mg/dL (8-26) Creatinine 0.8 mg/dL (0.7-1.3) Estimated GFR (Cockcroft-Gault) 99.6 Glucose Level 76 mg/dL (70-99) Calcium Level 8.9 mg/dL (8.5-10.1) Medications Current Medications Sodium Chloride 1,000 ml @ 1,000 mls/hr Q1H IV Last administered on at 14:04; Start 08/02/18 at 13:26; Stop 08/02/18 at 14:25; Status DC Fentanyl Citrate (Fentanyl 2ml Vial) 50 mcg 1X ONCE IV Last administered on at 15:13; Start 08/02/18 at 15:15; Stop 08/02/18 at 15:16; Status DC Ondansetron HCl (Zofran) 4 mg 1X ONCE IV Last administered on 08/02/18at 15:12 ; Start 08/02/18 at 15:15; Stop 08/02/18 at 15:16; Status DC Magnesium Sulfate 50 ml @ 25 mls/hr 1X ONCE IV Last administered on at 17:24; Start 08/02/18 at 17:00; Stop 08/02/18 at 18:59; Status DC Fentanyl Citrate (Fentanyl 2ml Vial) 50 mcg 1X ONCE IV Last administered on at 17:04; Start 08/02/18 at 17:00; Stop 08/02/18 at 17:01; Status DC Ondansetron HCl (Zofran) 4 mg PRN Q8HRS PRN IV NAUSEA/VOMITING; Start at 17:00; Stop 08/02/18 at 20:53; Status DC Ondansetron HCl (Zofran) 4 mg 1X ONCE IV Last administered on 08/02/18at 17:20 ; Start 08/02/18 at 17:15; Stop 08/02/18 at 17:16; Status DC Ondansetron HCl (Zofran) 4 mg PRN Q6HRS PRN IV NAUSEA/VOMITING, 2ND CHOICE; Start 08/02/18 at 20:15 Prochlorperazine Edisylate (Compazine) 10 mg PRN Q6HRS PRN IV NAUSEA/VOMITING, 1ST CHOICE Last administered on 08/04/18at 07:59; Start 08/02/18 at 20:15 Morphine Sulfate (Morphine Sulfate) 10 mg PRN Q4HRS PRN IV PAIN Last administered on 08/02/18at 20:34; Start 08/02/18 at 20:15; Stop 08/02/18 at 22 :03; Status DC Oxycodone HCl (Roxicodone) 5 mg PRN Q4HRS PRN PO MILD PAIN Last administered on 08/03/18at 14:14; Start 08/02/18 at 20:15 Oxycodone HCl (Roxicodone) 10 mg PRN Q4HRS PRN PO MODERATE PAIN, SEVERE PAIN Last administered on 08/06/18at 12:40; Start 08/02/18 at 20:15 Ketorolac Tromethamine (Toradol 30mg Vial) 30 mg PRN Q6HRS PRN IV INFLAMMATION ; Start 08/02/18 at 20:15; Stop 08/07/18 at 20:14 Acetaminophen (Tylenol) 650 mg PRN Q6HRS PRN PO Headaches, Temp > 101.5F; Start 08/02/18 at 20:15 Senna/Docusate Sodium (Senna Plus) 1 tab BID PO Last administered on at 08:00; Start 08/02/18 at 21:00 Lactulose (Lactulose) 20 gm PRN Q12HR PRN PO CONSTIPATION; Start 08/02/18 at 20:15 Bisacodyl (Dulcolax Supp) 10 mg PRN DAILY PRN [place] CONSTIPATION; Start 08/02/18 at 20:15 Heparin Sodium (Porcine) (Heparin Sodium) 5,000 unit Q8HRS SQ Last administered on 08/04/18at 15:02; Start 08/02/18 at 22:00 Allopurinol (Zyloprim) 300 mg DAILY PO Last administered on 08/06/18at 08:00; Start 08/03/18 at 09:00 Aspirin (Debbie Aspirin) 325 mg DAILY PO Last administered on 08/06/18at 08:00; Start 08/03/18 at 09:00 Tamsulosin HCl (Flomax) 0.4 mg QHS PO Last administered on 08/05/18at 21:03; Start 08/02/18 at 21:00 Acyclovir (Zovirax) 800 mg BID PO Last administered on 08/06/18at 08:01; Start 08/02/18 at 21:00 Citalopram Hydrobromide (CeleXA) 20 mg DAILY PO Last administered on at 08:00; Start 08/03/18 at 09:00 Fluticasone Propionate (Flonase) 2 spray DAILY NS ; Start 08/03/18 at 09:00 Gabapentin (Neurontin) 800 mg BID PO Last administered on 08/06/18at 08:01; Start 08/02/18 at 21:00 Losartan Potassium (Cozaar) 100 mg DAILY PO Last administered on 08/06/18at 09: 02; Start 08/03/18 at 09:00 Meloxicam (Mobic) 7.5 mg DAILY PO Last administered on 08/06/18at 08:00; Start 08/03/18 at 09:00 Pantoprazole Sodium (Protonix) 40 mg DAILYAC PO Last administered on at 08:01; Start 08/03/18 at 07:30 Magnesium Sulfate/ Dextrose 100 ml @ 25 mls/hr 1X ONCE IV Last administered on 08/02/18at 21:55; Start 08/02/18 at 21:00; Stop 08/03/18 at 00:59; Status DC Labetalol HCl (Normodyne Iv Push) 10 mg PRN Q4HRS PRN IVP HTN, SEE COMMENTS, 2ND CHOICE; Start 08/02/18 at 20:30 Hydralazine HCl (Apresoline) 10 mg PRN TID PO ; Start 08/02/18 at 20:30 Enalaprilat (Vasotec Inj) 1.25 mg PRN Q6HRS PRN IVP HTN, SEE COMMENTS, 1ST CHOICE; Start 08/02/18 at 20:30 Hydrochlorothiazide (Hydrodiuril) 25 mg DAILY PO Last administered on at 08:31; Start 08/03/18 at 09:00; Stop 08/03/18 at 12:19; Status DC Non-Formulary Medication 1 ea DAILY PO ; Start 08/03/18 at 09:00; Stop at 13:53; Status DC Morphine Sulfate (Morphine Sulfate) 10 mg PRN Q4HRS PRN IV SEVERE PAIN Last administered on 08/06/18at 09:04; Start 08/02/18 at 22:15 Pharmacy Consult (C.diff Med Screen By Rx) 1 each 1X ONCE [facility] ; Start 08/03/18 at 09:00; Stop 08/03/18 at 09:01; Status DC Gadobutrol (Gadavist) 10 mmol 1X ONCE IV Last administered on 08/05/18at 11:58 ; Start 08/05/18 at 11:45; Stop 08/05/18 at 11:46; Status DC Sodium Chloride 500 ml @ 50 mls/hr 1X ONCE IV Last administered on at 17:56; Start 08/05/18 at 12:30; Stop 08/05/18 at 22:29; Status DC Active Scripts Active Gabapentin 300 Mg Capsule 800 Mg PO BID Flomax (Tamsulosin Hcl) 0.4 Mg Cap.er.24h 0.4 Mg PO QHS Reported Revlimid (Lenalidomide) 25 Mg Capsule 25 Mg PO Dexamethasone 4 Mg Tablet 40 Mg PO WEEKLY Acyclovir 800 Mg Tablet 1 Tab PO BID Aspirin 325 Mg Tablet 1 Tab PO DAILY Hyzaar 100-25 Tablet (Losartan/Hydrochlorothiazide) 1 Each Tablet 1 Each PO DAILY Hydrocodone-Apap 5-325 (Hydrocodone Bit/Acetaminophen) 1 Each Tablet 1 Tab PO PRN Q6HRS PRN Escitalopram Oxalate 10 Mg Tablet 10 Mg PO DAILY Flonase Allergy Relief (Fluticasone Propionate) 9.9 Ml [place].susp 2 Sprays NS DAILY Meloxicam 7.5 Mg Tablet 7.5 Mg PO DAILY Prilosec Otc (Omeprazole Magnesium) 20 Mg Tablet.dr 40 Mg PO DAILY Allopurinol 300 Mg Tablet 300 Mg PO DAILY Vitals/I & O Vital Sign - Last 24 Hours 08/05/18 08/05/18 08/05/18 08/05/18 15:00 16:22 19:00 19:16 Temp 96.6 98.4 96.6 98.4 Pulse 80 85 Resp 18 18 B/P (MAP) 90/52 (65) 115/62 (79) Pulse Ox 96 92 96 O2 Delivery Room Air Room Air Room Air Room Air 08/05/18 08/05/18 08/05/18 08/05/18 19:37 19:52 21:03 23:00 Temp 98.2 98.2 Pulse 88 Resp 18 B/P (MAP) 110/67 (81) Pulse Ox 96 96 96 O2 Delivery Room Air Room Air Room Air 08/06/18 08/06/18 08/06/18 08/06/18 02:22 02:53 03:22 07:00 Temp 97.6 97.9 97.6 97.9 Pulse 101 93 Resp 18 18 B/P (MAP) 118/70 (86) 129/66 (87) Pulse Ox 96 9 9 99 O2 Delivery Room Air Room Air Room Air 08/06/18 08/06/18 08/06/18 08/06/18 07:25 08:00 09:02 09:04 Pulse 93 B/P (MAP) 129/66 Pulse Ox 9 O2 Delivery Room Air Room Air Room Air 08/06/18 08/06/18 08/06/18 09:05 09:36 12:40 O2 Delivery Room Air Room Air Room Air Intake and Output 08/05/18 08/05/18 08/06/18 15:00 23:00 07:00 Intake Total 290 ml 200 ml 400 ml Balance 290 ml 200 ml 400 ml GAYATHRI PAINTING MD Aug 06, 2018 12:52
[2018-08-06 15:00] VITALS: BP 126/65
[2018-08-06 19:00] VITALS: BP 124/69
[2018-08-06] MEDS: TAMSULOSIN 0.4 MG CAP.ER.24H. PO SCH (20:32)
--- NOTE | 2018-08-06 21:20 | CONS ---
DATE OF CONSULTATION: 08/06/2018 REQUESTING PHYSICIAN: Dr. Johnson. REASON FOR CONSULTATION: Dr. Ordoñez is requesting to rule out meningitis. HISTORY OF PRESENT ILLNESS: This is a 58-year-old gentleman with multiple myeloma who is known to us. This is the third admission and now he has had a headache, back pain, significant elevation in the blood pressure. First time he was seen the later part of the last month that he came in with a headache and fever and at that time, lumbar puncture was done which had shown 4068 WBC, 20 RBC, 45 glucose and 318 protein. His cultures remained negative. His HSV was negative. His West Nile IgG was positive, IgM negative. The patient was treated with broad antibiotic coverage and finished the course. The patient had another admission with similar symptoms and this time also he came in with a headache and his blood pressure was very high. His blood pressure was controlled. His headache improved. The patient also had hyponatremia down to 121 sodium. The patient also is complaining of some back pain and leg pain, hence Dr. Ordoñez is consulted for possible epidural injection and hence I am consulted to rule out meningitis. The patient denies any fever, denies any chills. Denies any nausea, vomiting, diarrhea. He does not have any headache right now. He has some back pain and significant lower extremity pain. The patient in fact is sitting up and looking really good, communicating really well, at the bedside. The patient has been off antibiotics now at least maybe more than 10 days or so. PAST MEDICAL HISTORY: As I mentioned, multiple myeloma. The patient has had chemotherapy, now at least 2 weeks ago or so. He also has history of hypertension, hyperlipidemia, gastroesophageal reflux disease and diverticulosis. SOCIAL HISTORY: Negative for smoking, alcohol, or drug use. ALLERGIES: LISTED ALLERGIC TO PENICILLIN AND AMOXICILLIN. CURRENT MEDICATIONS: The patient is not on any antibiotics. REVIEW OF SYSTEMS: As per HPI, all other systems reviewed are negative. PHYSICAL EXAMINATION: GENERAL: Alert, oriented gentleman, not in distress. VITAL SIGNS: Stable, afebrile. HEENT: NAD. NECK: Supple, no JVP, no lymphadenopathy. LUNGS: Clear. HEART: S1, S2 regular. ABDOMEN: Benign. EXTREMITIES: No edema, cyanosis. SKIN: Unremarkable. NEUROLOGIC: The patient is grossly intact. LABORATORY DATA: Meningeal signs are negative. Kernig and Brudzinski both negative. White count is 3.1, platelets are normal. BUN and creatinine is normal. Sodium is 121. Urinalysis unremarkable and the CSF numbers that I mentioned in the HPI. IMAGING STUDIES: MRI of the lumbar spine is negative other than myeloma. His brain MRI is negative. IMPRESSION: 1. Back pain and lower extremity pain needing possible epidural. 2. Multiple myeloma. 3. CSF pleocytosis on 07/15/2018 which was suspected meningitis, although cultures were negative and the patient was treated with I believe 2 weeks course of IV antibiotics. The patient has no clinical signs, symptoms or evidence for meningitis at this stage. From the infectious disease standpoint of view, the patient does not need any further workup for the infection and/or meningitis that CSF pleocytosis could have been even secondary to myeloma, but in either case, I do not see the need for any further workup or i.e., lumbar puncture unless Dr. Ordoñez wants to make sure then the only way to make sure is there has to be another lumbar puncture. This was discussed with the patient in detail and the and also discussed with Dr. Johnson. Thank you very much, Dr. Johnson and Dr. Ordoñez for giving me the opportunity to participate in this patient's care. GENEVA LONGORIA MD DR: SHAWN/nts JOB#: [id number] / [id number]
[2018-08-06 23:00] VITALS: BP 135/71
[2018-08-07] MEDS: MORPHINE SULFATE 10 MG/ML VIAL. IV PRN ×2 (00:34→06:05)
[2018-08-07 03:00] VITALS: BP 127/70
[2018-08-07] MEDS: oxyCODONE IR 5 MG TABLET PO PRN ×5 (03:46→20:37)
[2018-08-07] MEDS: HEPARIN for SUB-Q USE 5,000 UNIT/ML VIAL. SQ SCH (05:07)
[2018-08-07 06:05] LABS: CALCIUM 8.9 mg/dL (8.5-10.1); CREATININE 0.8 mg/dL (0.7-1.3); GFR 99.6; POTASSIUM 4.1 mmol/L (3.5-5.1)
[2018-08-07 07:00] VITALS: BP 139/79
[2018-08-07] MEDS: ACYCLOVIR 200 MG CAPSULE. PO SCH ×2 (07:55→20:36)
[2018-08-07] MEDS: PANTOPRAZOLE 40 MG TABLET.DR. PO SCH (07:55)
[2018-08-07] MEDS: SENNOSIDES/DOCUSATE 8.6/50MG TABLET. PO SCH ×2 (07:56→20:36)
[2018-08-07] MEDS: ALLOPURINOL 300 MG TABLET. PO SCH (07:56)
[2018-08-07] MEDS: ASPIRIN 325 MG TABLET PO SCH (07:56)
[2018-08-07] MEDS: GABAPENTIN 400 MG CAPSULE. PO SCH ×2 (07:56→20:36)
[2018-08-07] MEDS: CITALOPRAM 20 MG TABLET. PO SCH (07:56)
[2018-08-07] MEDS: LOSARTAN POTASSIUM 50 MG TABLET. PO SCH (07:57)
[2018-08-07] MEDS: MELOXICAM 7.5 MG TABLET PO SCH (07:57)
[2018-08-07] MEDS: FLUTICASONE 50MCG/NASAL SPRAY 16GM BOTTLE. NS SCH (07:58)
--- NOTE | 2018-08-07 10:36 | PDOC ---
PROGRESS NOTES Chief Complaint Chief Complaint 1. IgG kappa multiple myeloma. \ CSF pleocytosis secondary to multiple myeloma Obesity [place] 33 Acute on chronic back pain Hypertension, dyslipidemia-chronic stable History of Present Illness History of Present Illness Other subspecialist notes reviewed, very, complicated history Has had chemotherapy for MM< halted bec of some meningitis ENxt chemotherapy plans 08/10 Chemotherapy in the past with been halted because of meningitis/CSF pleocytosis Pain management clinic has not yet seen the patient but note I have reviewed Recommended meningitis workup but no need per iD - I agree Walking around the halls, has had a shower, no headache, mentation good, but back pain is still continued He is getting 10 mg of morphine every 2 hours and is wide awake HAs had back inj in the past, and is interested in another one if can get relief -last back imaging was maybe a week ago TAking roxicodone and cant afford to miss it or else severe back pain PLAn: Consult physiatry Start MS Contin Keep oxycodone for breakthrough pain Check a sedimentation rate if not yet done, need to rule out infectious disease process or inflammatory process severe enough causing severe back pain: Be on top of bowel regimen-so far it is moving Vitals Vitals Vital Signs Date Time Temp Pulse Resp B/P (MAP) Pulse Ox O2 Delivery O2 Flow Rate FiO2 08/07/18 07:57 89 139/79 08/07/18 07:57 Room Air 08/07/18 07:00 98.2 18 97 98.2 Physical Exam General: Alert, Oriented X3 Heart: Normal S1, Normal S2 Lungs: Clear Abdomen: Normal bowel sounds Extremities: No clubbing Skin: No rashes Labs LABS Laboratory Tests Test 08/07/18 05:40 Sodium Level 136 mmol/L (136-145) Potassium Level 4.1 mmol/L (3.5-5.1) Chloride Level 100 mmol/L (98-107) Carbon Dioxide Level 30 mmol/L (21-32) Anion Gap 6 (6-14) Blood Urea Nitrogen 12 mg/dL (8-26) Creatinine 0.8 mg/dL (0.7-1.3) Estimated GFR (Cockcroft-Gault) 99.6 Glucose Level 106 mg/dL (70-99) Calcium Level 8.9 mg/dL (8.5-10.1) Review of Systems Review of Systems Back pain, the rest of ROS 14 point negative Assessment and Plan Assessmemt and Plan Problems Medical Problems: (1) Hypomagnesemia Status: Acute (2) Hyponatremia Status: Acute (3) Microscopic hematuria Status: Acute (4) Multiple myeloma Status: Acute (5) Weakness Status: Acute Comment Review of Relevant I have reviewed the following items cristina (where applicable) has been applied. Labs Laboratory Tests Test 08/05/18 15:38 08/06/18 08:50 08/07/18 05:40 Urine Collection Type Unknown Urine Color Ally Urine Clarity Clear Urine pH 5.0 Urine Specific [place] 1.025 Urine Protein Negative mg/dL (NEG-TRACE) Urine Glucose (UA) Negative mg/dL (NEG) Urine Ketones (Stick) Negative mg/dL (NEG) Urine Blood Negative (NEG) Urine Nitrite Negative (NEG) Urine Bilirubin Negative (NEG) Urine Urobilinogen Dipstick 0.2 mg/dL (0.2 mg/dL) Urine Leukocyte Esterase Negative (NEG) Urine RBC Occ /HPF (0-2) Urine WBC 1-4 /HPF (0-4) Urine Bacteria Few /HPF (0-FEW) Urine Hyaline Casts Few /HPF Urine Mucus Mod /LPF Sodium Level 134 mmol/L (136-145) 136 mmol/L (136-145) Potassium Level 3.8 mmol/L (3.5-5.1) 4.1 mmol/L (3.5-5.1) Chloride Level 98 mmol/L (98-107) 100 mmol/L (98-107) Carbon Dioxide Level 28 mmol/L (21-32) 30 mmol/L (21-32) Anion Gap 8 (6-14) 6 (6-14) Blood Urea Nitrogen 17 mg/dL (8-26) 12 mg/dL (8-26) Creatinine 0.8 mg/dL (0.7-1.3) 0.8 mg/dL (0.7-1.3) Estimated GFR (Cockcroft-Gault) 99.6 99.6 Glucose Level 76 mg/dL (70-99) 106 mg/dL (70-99) Calcium Level 8.9 mg/dL (8.5-10.1) 8.9 mg/dL (8.5-10.1) Laboratory Tests Test 08/07/18 05:40 Sodium Level 136 mmol/L (136-145) Potassium Level 4.1 mmol/L (3.5-5.1) Chloride Level 100 mmol/L (98-107) Carbon Dioxide Level 30 mmol/L (21-32) Anion Gap 6 (6-14) Blood Urea Nitrogen 12 mg/dL (8-26) Creatinine 0.8 mg/dL (0.7-1.3) Estimated GFR (Cockcroft-Gault) 99.6 Glucose Level 106 mg/dL (70-99) Calcium Level 8.9 mg/dL (8.5-10.1) Medications Current Medications Sodium Chloride 1,000 ml @ 1,000 mls/hr Q1H IV Last administered on at 14:04; Start 08/02/18 at 13:26; Stop 08/02/18 at 14:25; Status DC Fentanyl Citrate (Fentanyl 2ml Vial) 50 mcg 1X ONCE IV Last administered on at 15:13; Start 08/02/18 at 15:15; Stop 08/02/18 at 15:16; Status DC Ondansetron HCl (Zofran) 4 mg 1X ONCE IV Last administered on 08/02/18at 15:12 ; Start 08/02/18 at 15:15; Stop 08/02/18 at 15:16; Status DC Magnesium Sulfate 50 ml @ 25 mls/hr 1X ONCE IV Last administered on at 17:24; Start 08/02/18 at 17:00; Stop 08/02/18 at 18:59; Status DC Fentanyl Citrate (Fentanyl 2ml Vial) 50 mcg 1X ONCE IV Last administered on at 17:04; Start 08/02/18 at 17:00; Stop 08/02/18 at 17:01; Status DC Ondansetron HCl (Zofran) 4 mg PRN Q8HRS PRN IV NAUSEA/VOMITING; Start at 17:00; Stop 08/02/18 at 20:53; Status DC Ondansetron HCl (Zofran) 4 mg 1X ONCE IV Last administered on 08/02/18at 17:20 ; Start 08/02/18 at 17:15; Stop 08/02/18 at 17:16; Status DC Ondansetron HCl (Zofran) 4 mg PRN Q6HRS PRN IV NAUSEA/VOMITING, 2ND CHOICE; Start 08/02/18 at 20:15 Prochlorperazine Edisylate (Compazine) 10 mg PRN Q6HRS PRN IV NAUSEA/VOMITING, 1ST CHOICE Last administered on 08/04/18at 07:59; Start 08/02/18 at 20:15 Morphine Sulfate (Morphine Sulfate) 10 mg PRN Q4HRS PRN IV PAIN Last administered on 08/02/18at 20:34; Start 08/02/18 at 20:15; Stop 08/02/18 at 22 :03; Status DC Oxycodone HCl (Roxicodone) 5 mg PRN Q4HRS PRN PO MILD PAIN Last administered on 08/03/18at 14:14; Start 08/02/18 at 20:15 Oxycodone HCl (Roxicodone) 10 mg PRN Q4HRS PRN PO MODERATE PAIN, SEVERE PAIN Last administered on 08/07/18at 07:57; Start 08/02/18 at 20:15 Ketorolac Tromethamine (Toradol 30mg Vial) 30 mg PRN Q6HRS PRN IV INFLAMMATION ; Start 08/02/18 at 20:15; Stop 08/07/18 at 20:14 Acetaminophen (Tylenol) 650 mg PRN Q6HRS PRN PO Headaches, Temp > 101.5F; Start 08/02/18 at 20:15 Senna/Docusate Sodium (Senna Plus) 1 tab BID PO Last administered on at 07:56; Start 08/02/18 at 21:00 Lactulose (Lactulose) 20 gm PRN Q12HR PRN PO CONSTIPATION; Start 08/02/18 at 20:15 Bisacodyl (Dulcolax Supp) 10 mg PRN DAILY PRN [place] CONSTIPATION; Start 08/02/18 at 20:15 Heparin Sodium (Porcine) (Heparin Sodium) 5,000 unit Q8HRS SQ Last administered on 08/04/18at 15:02; Start 08/02/18 at 22:00 Allopurinol (Zyloprim) 300 mg DAILY PO Last administered on 08/07/18at 07:56; Start 08/03/18 at 09:00 Aspirin (Debbie Aspirin) 325 mg DAILY PO Last administered on 10/27/18at 07:56; Start 08/03/18 at 09:00 Tamsulosin HCl (Flomax) 0.4 mg QHS PO Last administered on 08/06/18at 20:32; Start 08/02/18 at 21:00 Acyclovir (Zovirax) 800 mg BID PO Last administered on 08/07/18at 07:55; Start 08/02/18 at 21:00 Citalopram Hydrobromide (CeleXA) 20 mg DAILY PO Last administered on at 07:56; Start 08/03/18 at 09:00 Fluticasone Propionate (Flonase) 2 spray DAILY NS ; Start 08/03/18 at 09:00 Gabapentin (Neurontin) 800 mg BID PO Last administered on 08/07/18at 07:56; Start 08/02/18 at 21:00 Losartan Potassium (Cozaar) 100 mg DAILY PO Last administered on 08/07/18at 07: 57; Start 08/03/18 at 09:00 Meloxicam (Mobic) 7.5 mg DAILY PO Last administered on 08/07/18at 07:57; Start 08/03/18 at 09:00 Pantoprazole Sodium (Protonix) 40 mg DAILYAC PO Last administered on at 07:55; Start 08/03/18 at 07:30 Magnesium Sulfate/ Dextrose 100 ml @ 25 mls/hr 1X ONCE IV Last administered on 08/02/18at 21:55; Start 08/02/18 at 21:00; Stop 08/03/18 at 00:59; Status DC Labetalol HCl (Normodyne Iv Push) 10 mg PRN Q4HRS PRN IVP HTN, SEE COMMENTS, 2ND CHOICE; Start 08/02/18 at 20:30 Hydralazine HCl (Apresoline) 10 mg PRN TID PO ; Start 08/02/18 at 20:30 Enalaprilat (Vasotec Inj) 1.25 mg PRN Q6HRS PRN IVP HTN, SEE COMMENTS, 1ST CHOICE; Start 08/02/18 at 20:30 Hydrochlorothiazide (Hydrodiuril) 25 mg DAILY PO Last administered on at 08:31; Start 08/03/18 at 09:00; Stop 08/03/18 at 12:19; Status DC Non-Formulary Medication 1 ea DAILY PO ; Start 08/03/18 at 09:00; Stop at 13:53; Status DC Morphine Sulfate (Morphine Sulfate) 10 mg PRN Q4HRS PRN IV SEVERE PAIN Last administered on 08/07/18at 06:05; Start 08/02/18 at 22:15 Pharmacy Consult (C.diff Med Screen By Rx) 1 each 1X ONCE [facility] ; Start 08/03/18 at 09:00; Stop 08/03/18 at 09:01; Status DC Gadobutrol (Gadavist) 10 mmol 1X ONCE IV Last administered on 08/05/18at 11:58 ; Start 08/05/18 at 11:45; Stop 08/05/18 at 11:46; Status DC Sodium Chloride 500 ml @ 50 mls/hr 1X ONCE IV Last administered on at 17:56; Start 08/05/18 at 12:30; Stop 08/05/18 at 22:29; Status DC Active Scripts Active Gabapentin 300 Mg Capsule 800 Mg PO BID Flomax (Tamsulosin Hcl) 0.4 Mg Cap.er.24h 0.4 Mg PO QHS Reported Revlimid (Lenalidomide) 25 Mg Capsule 25 Mg PO Dexamethasone 4 Mg Tablet 40 Mg PO WEEKLY Acyclovir 800 Mg Tablet 1 Tab PO BID Aspirin 325 Mg Tablet 1 Tab PO DAILY Hyzaar 100-25 Tablet (Losartan/Hydrochlorothiazide) 1 Each Tablet 1 Each PO DAILY Hydrocodone-Apap 5-325 (Hydrocodone Bit/Acetaminophen) 1 Each Tablet 1 Tab PO PRN Q6HRS PRN Escitalopram Oxalate 10 Mg Tablet 10 Mg PO DAILY Flonase Allergy Relief (Fluticasone Propionate) 9.9 Ml [place].susp 2 Sprays NS DAILY Meloxicam 7.5 Mg Tablet 7.5 Mg PO DAILY Prilosec Otc (Omeprazole Magnesium) 20 Mg Tablet.dr 40 Mg PO DAILY Allopurinol 300 Mg Tablet 300 Mg PO DAILY Vitals/I & O Vital Sign - Last 24 Hours 08/06/18 08/06/18 08/06/18 08/06/18 11:00 12:40 15:00 17:17 Temp 97.6 97.6 97.6 97.6 Pulse 86 84 Resp 18 18 B/P (MAP) 121/71 (88) 126/65 (85) Pulse Ox 99 97 O2 Delivery Room Air Room Air Room Air Room Air 08/06/18 08/06/18 08/06/18 08/06/18 19:00 20:00 20:33 22:28 Temp 97.4 97.4 Pulse 93 Resp 18 16 B/P (MAP) 124/69 (87) Pulse Ox 98 97 O2 Delivery Room Air Room Air Room Air Room Air 08/06/18 08/07/18 08/07/18 08/07/18 23:00 00:34 01:04 03:00 Temp 97.6 97.8 97.6 97.8 Pulse 80 80 Resp 18 18 B/P (MAP) 135/71 (92) 127/70 (89) Pulse Ox 98 98 98 98 O2 Delivery Room Air Room Air Room Air Room Air 08/07/18 08/07/18 08/07/18 08/07/18 03:46 04:46 06:05 07:00 Temp 98.2 98.2 Pulse 88 Resp 18 B/P (MAP) 139/79 (99) Pulse Ox 98 98 98 97 O2 Delivery Room Air Room Air Room Air Room Air 08/07/18 08/07/18 07:57 07:57 Pulse 89 B/P (MAP) 139/79 O2 Delivery Room Air Intake and Output 08/06/18 08/06/18 08/07/18 15:00 23:00 07:00 Intake Total 360 ml 180 ml Balance 360 ml 180 ml JOSE ALBERTO OLMOS MD Aug 07, 2018 10:36
[2018-08-07] MEDS ORDERED: MAGNESIUM HYDROXIDE 2,400 MG/30 ML ORAL.SUSP. PO PRN (10:45)
[2018-08-07] MEDS ORDERED: POLYETHYLENE GLYCOL 3350 17 GM PACKET. PO PRN (10:45)
[2018-08-07 11:00] VITALS: BP 127/75
[2018-08-07] MEDS: LIDOCAINE (700MG/PATCH) PATCH. TD SCH (11:00)
[2018-08-07] MEDS: MORPHINE ER 15 MG TABLET.ER PO SCH ×2 (11:44→20:37)
[2018-08-07] MEDS: DOCUSATE SODIUM 100 MG CAPSULE. PO SCH ×2 (11:44→20:36)
[2018-08-07 15:00] VITALS: BP 112/49
[2018-08-07 19:00] VITALS: BP 151/72
[2018-08-07] MEDS: TAMSULOSIN 0.4 MG CAP.ER.24H. PO SCH (20:36)
[2018-08-07] MEDS ORDERED: PATCH REMOVAL. MC SCH ×2 (21:00)
[2018-08-07 23:00] VITALS: BP 171/80
[2018-08-08 01:09] VITALS: BP 158/81
[2018-08-08] MEDS: oxyCODONE IR 5 MG TABLET PO PRN ×2 (02:29→08:25)
[2018-08-08 03:00] VITALS: BP 149/76
--- NOTE | 2018-08-08 04:28 | CONS ---
DATE OF CONSULTATION: 08/07/2018 ATTENDING PHYSICIAN: Dr. Soto. The patient was seen at the request of Dr. Pham for rehab evaluation about his back pain. 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 Mendoza and Dr. Yanes in the outpatient clinic. The patient with known hypertension and multiple myeloma, admitted with hypertension, apparently at home with systolic blood pressure 170. He woke up with a mild headache and has been not feeling well. The patient was found with meningitis earlier this month and his headache is worse right now and the headache he had with meningitis is different than the present headache. He denies any neck stiffness, confusion, fever or chills. He admits to generalized fatigue. Dr. Johnson, his oncologist, is following him for multiple myeloma. He denies any trouble with his bowel or bladder control. The patient was found with hypomagnesemia 1.4 in the Emergency Room and sodium of 130. He is also with known hypertension, hyperlipidemia, diverticulosis, gastroesophageal reflux disease, gastritis, anxiety, KNOWN ALLERGIC TO PENICILLIN AND AMOXICILLIN, status post tonsillectomy. The patient had CT scan and MRI scan of the brain, which failed to reveal any acute abnormality. He admits to lower back pain with radiation to both lower extremities with associated tingling and numbness in his hands and feet. The patient denies any trouble with his bowel or bladder control. PHYSICAL EXAMINATION: Today revealed a middle-aged male. He is alert, oriented to time, place, person and circumstance and follows commands appropriately, moves all 4 extremities voluntarily where he had 4/5 to 4+/5 grade muscle strength with relatively increased weakness in hand intrinsic muscles and significant weakness of dorsiflexor muscles of both feet and toes. The patient had decreased touch and pinprick sensation over a sock and glove distribution. He had crepitus on range of motion of both knee joints without any obvious knee joint effusion. He had painful limited movements of his lumbar spine. Straight leg raising test is negative bilaterally. He had pain free range of motion of both hip joints. He had localized tenderness to palpation over the left sacroiliac joint area. No significant lumbar paraspinal muscle spasm was noted at this time. His skin is intact at this time. He is independent with bed mobility, transfers, and ambulation. He had brisk right knee jerk, 2+ left knee jerk and right ankle jerk, absent left ankle jerk. ASSESSMENT: A middle-aged male with multiple myeloma, status post chemotherapy with peripheral neuropathy, also chronic lower back pain from degenerative disk disease of lumbar vertebrae with left S1 radiculopathy. The patient with known hypertension, hyperlipidemia, diverticulosis, gastroesophageal reflux disease, gastritis, anxiety. RECOMMENDATION: To try physical modalities. I have reviewed with him a home program of physical modalities and stretching exercises and proper body mechanics. I have advised him to try lumbar corset while up as he is having more discomfort while sitting long periods of time. He had lumbar epidural steroid injections in the past with significant easing of the pain and hopefully he can continue them. Right now, he grades his pain on a scale of 0-10 around 4. He can be discharged to home when medically stable to be followed by Pain Clinic. I will be glad to see him for followup on as needed basis and to consider injecting painful left sacroiliac joint area if he wants. Dr. Pham, I appreciate asking me to participate in the care of this interesting patient. I will be glad to follow him with you as needed for rehabilitation. MARILEE GUTIERREZ MD DR: MARTHA/reina JOB#: [id number] / [id number]
[2018-08-08 07:00] VITALS: BP 135/78
[2018-08-08] MEDS ORDERED: OXYC5TAB95 PO (08:23)
[2018-08-08] MEDS ORDERED: MORP15TA3 PO (08:23)
[2018-08-08] MEDS: FLUTICASONE 50MCG/NASAL SPRAY 16GM BOTTLE. NS SCH (08:23)
[2018-08-08] MEDS: MELOXICAM 7.5 MG TABLET PO SCH (08:24)
[2018-08-08] MEDS: PANTOPRAZOLE 40 MG TABLET.DR. PO SCH (08:24)
[2018-08-08] MEDS: DOCUSATE SODIUM 100 MG CAPSULE. PO SCH (08:25)
[2018-08-08] MEDS: ASPIRIN 325 MG TABLET PO SCH (08:25)
[2018-08-08] MEDS: ALLOPURINOL 300 MG TABLET. PO SCH (08:26)
[2018-08-08] MEDS: CITALOPRAM 20 MG TABLET. PO SCH (08:26)
[2018-08-08] MEDS: ACYCLOVIR 200 MG CAPSULE. PO SCH (08:26)
[2018-08-08] MEDS: GABAPENTIN 400 MG CAPSULE. PO SCH (08:26)
[2018-08-08] MEDS: SENNOSIDES/DOCUSATE 8.6/50MG TABLET. PO SCH (08:26)
[2018-08-08] MEDS: MORPHINE ER 15 MG TABLET.ER PO SCH (08:26)
[2018-08-08 08:28] VITALS: BP 135/78
[2018-08-08] MEDS: LOSARTAN POTASSIUM 50 MG TABLET. PO SCH (08:28)
[2018-08-08] MEDS: LIDOCAINE (700MG/PATCH) PATCH. TD SCH (08:30)
[2018-08-08] MEDS ORDERED: LIDOCAINE (700MG/PATCH) PATCH. TD SCH (09:00)
--- NOTE | 2018-08-08 10:12 | PDOC3 ---
Discharge Summary Visit Information Date of Admission: Aug 02, 2018 Date of Discharge: Aug 08, 2018 Admitting Diagnosis Comment: 1. IgG kappa multiple myeloma. CSF pleocytosis secondary to multiple myeloma Obesity [place] 33 Acute on chronic back pain Hypertension, dyslipidemia-chronic stable Final Diagnosis Problems Medical Problems: (1) Hypomagnesemia Status: Acute (2) Hyponatremia Status: Acute (3) Microscopic hematuria Status: Acute (4) Multiple myeloma Status: Acute (5) Weakness Status: Acute Brief Hospital Course Allergies Allergies Coded Allergies Type Severity Reaction Last Updated Verified amoxicillin Allergy Intermediate 07/17/18 Yes Penicillins Adverse Reaction Intermediate Nausea and Vomiting 07/06/18 Yes Vital Signs Vital Signs Date Time Temp Pulse Resp B/P (MAP) Pulse Ox O2 Delivery O2 Flow Rate FiO2 08/08/18 09:27 Room Air 08/08/18 08:28 96 135/78 08/08/18 07:00 97.8 20 99 97.8 Lab Results Laboratory Tests Test 08/07/18 05:40 Sodium Level 136 mmol/L (136-145) Potassium Level 4.1 mmol/L (3.5-5.1) Chloride Level 100 mmol/L (98-107) Carbon Dioxide Level 30 mmol/L (21-32) Anion Gap 6 (6-14) Blood Urea Nitrogen 12 mg/dL (8-26) Creatinine 0.8 mg/dL (0.7-1.3) Estimated GFR (Cockcroft-Gault) 99.6 Glucose Level 106 mg/dL (70-99) Calcium Level 8.9 mg/dL (8.5-10.1) Brief Hospital Course Mr. Jerry is a 58 old white male who has a known diagnosis of multiple myeloma, status post chemotherapy by Dr. Johnson. Comes in admission because of some nausea, back pain, and elyte abnormalities. His course was remarkable for significant back pain needing pain management consult, the service recommended ID to rule out meningitis given history of significant CSF pleocytosis may be need for LP?. But infectious disease service did not see the need for this and I agree. Patient was getting morphine 10 mg every 4 when necessary. And is tolerating it very fine. I did need to start MS Contin 15 twice a day along with Roxicodone when necessary and that seems to be controlling his pain with no PT needs and ambulating the halls. Did consult physiatry who had no further recommendations. To go back home today with plan for further chemotherapy by Dr. Johnson on 08/10/18 Rx on chart DC time 32 minutes greater than 50% DC education counseling coordination etc. Consults performed pain management, infectious disease, heme onc Procedures performed- none Discharge Information Condition at Discharge: Improved, Stable Disposition/Orders: D/C to Home Scheduled Acyclovir (Acyclovir) 800 Mg Tablet, 1 TAB PO BID, #50 (Reported) Entered as Reported by: MARY OROURKE on 07/09/1832 Last Action: Converted on 08/02/182020 by CRISSY BRYSON MD Allopurinol (Allopurinol) 300 Mg Tablet, 300 MG PO DAILY, (Reported) Entered as Reported by: MAURO FISHER on 04/27/14 0732 Last Action: Continued on 08/02/182020 by CRISSY BRYSON MD Aspirin (Aspirin) 325 Mg Tablet, 1 TAB PO DAILY, #30 Ref 5 (Reported) Entered as Reported by: MARY OROURKE on 07/09/1832 Last Action: Continued on 08/02/182020 by CRISSY BRYSON MD Dexamethasone (Dexamethasone) 4 Mg Tablet, 40 MG PO WEEKLY, (Reported) Entered as Reported by: MARY OROURKE on 07/09/1832 Last Action: HELD on 08/02/182019 by CRISSY BRYSON MD Escitalopram Oxalate (Escitalopram Oxalate) 10 Mg Tablet, 10 MG PO DAILY for ANTI-DEPRESSANT, #30 Ref 0 (Reported) Entered as Reported by: BERNARDO CERNA on 06/25/18 0746 Last Action: Converted on 08/02/182020 by CRISSY BRYSON MD Fluticasone Propionate (Flonase Allergy Relief) 9.9 Ml [place].susp, 2 SPRAYS NS DAILY, (Reported) Entered as Reported by: HUMBERTO KATHLEEN on 06/11/18 0915 Last Action: Converted on 08/02/182020 by CRISSY BRYSON MD Gabapentin (Gabapentin) 300 Mg Capsule, 800 MG PO BID, #60 Prescribed by: ANAYELI FLOWERS on 07/30/18 0916 Last Action: Converted on 08/02/182020 by CRISSY BRYSON MD Losartan/Hydrochlorothiazide (Hyzaar 100-25 Tablet) 1 Each Tablet, 1 EACH PO DAILY, (Reported) Entered as Reported by: BERNARDO CERNA on 06/25/18 0746 Last Action: Converted on 08/02/182020 by CRISSY BRYSON MD Meloxicam (Meloxicam) 7.5 Mg Tablet, 7.5 MG PO DAILY, (Reported) Entered as Reported by: KATIE AUGUSTINE on 12/04/15 1543 Last Action: Converted on 08/02/182020 by CRISSY BRYSON MD Morphine Sulfate (Morphine Sulfate Er) 15 Mg Tablet.er, 15 MG PO BID, #30 Prescribed by: JOSE ALBERTO OLMOS on 08/08/18 0823 Omeprazole Magnesium (Prilosec Otc) 20 Mg Tablet.dr, 40 MG PO DAILY, (Reported) Entered as Reported by: MAURO FISHER on 04/27/14 0732 Last Action: Converted on 08/02/182020 by CRISSY BRYSON MD Tamsulosin Hcl (Flomax) 0.4 Mg Cap.er.24h, 0.4 MG PO QHS, #30 Ref 1 Prescribed by: ANAYELI FLOWERS on 07/13/18 0834 Last Action: Continued on 08/02/182020 by CRISSY BRYSON MD Scheduled PRN Hydrocodone Bit/Acetaminophen (Hydrocodone-Apap 5-325 ) 1 Each Tablet, 1 TAB PO PRN Q6HRS PRN for PAIN, Ref 0 (Reported) Entered as Reported by: BERNARDO CERNA on 06/25/1846 Last Action: HELD on 08/02/182019 by CRISSY BRYSON MD Oxycodone Hcl (Oxycodone Hcl) 5 Mg Tablet, 10 MG PO PRN Q4HRS PRN for MODERATE PAIN, SEVERE PAIN, #30 Prescribed by: JOSE ALBERTO OLMOS on 08/08/18 0823 Miscellaneous Medications Lenalidomide (Revlimid) 25 Mg Capsule, 25 MG PO, (Reported) Entered as Reported by: MARY OROURKE on 07/09/18 0033 JOSE ALBERTO OLMOS MD Aug 08, 2018 10:12
[2018-08-18] MEDS ORDERED: DEXA6TAB PO (09:07)
[2018-08-18] MEDS ORDERED: POLY17PO29 PO (09:07)
[2018-08-18] MEDS ORDERED: SULF1TAB24 PO (09:07)
[2018-08-18] MEDS ORDERED: BORT3.5V IJ (09:07)
[2018-08-18] MEDS ORDERED: SENN8.6T99 PO (09:07)
== END 2018-08-08 11:11 | disposition home or self-care (01) | DRG 840 ==
LOC: ER 12:28 → ED HOLD 16:50 → 5 NORTH 19:49
PROVIDERS: ADMIT Internal Medicine; ATTEND Internal Medicine
PROC: 02HV33Z Insertion of Infusion Device into Superior Vena Cava, Percutaneous Approach (ICD-10-PCS; principal; 2018-08-05)
PROC: B5181ZA Fluoroscopy of Superior Vena Cava using Low Osmolar Contrast, Guidance (ICD-10-PCS; 2018-08-05)
DX: C90.00 Multiple myeloma not having achieved remission (principal); G03.9 Meningitis, unspecified; E87.1 Hypo-osmolality and hyponatremia; R65.10 Systemic inflammatory response syndrome (SIRS) of non-infectious origin without acute organ dysfunction; E83.42 Hypomagnesemia; I10 Essential (primary) hypertension; F41.9 Anxiety disorder, unspecified; E78.00 Pure hypercholesterolemia, unspecified; M10.9 Gout, unspecified; R31.29 Other microscopic hematuria; K57.90 Diverticulosis of intestine, part unspecified, without perforation or abscess without bleeding; K21.9 Gastro-esophageal reflux disease without esophagitis; E86.1 Hypovolemia; I16.0 Hypertensive urgency; R33.9 Retention of urine, unspecified; M51.36 Other intervertebral disc degeneration, lumbar region; E87.6 Hypokalemia; D63.0 Anemia in neoplastic disease; G89.29 Other chronic pain; E78.5 Hyperlipidemia, unspecified; E66.9 Obesity, unspecified; G62.9 Polyneuropathy, unspecified; M54.18 Radiculopathy, sacral and sacrococcygeal region; Z92.21 Personal history of antineoplastic chemotherapy; Z79.82 Long term (current) use of aspirin; Z82.49 Family history of ischemic heart disease and other diseases of the circulatory system; Z86.61 Personal history of infections of the central nervous system; Z83.3 Family history of diabetes mellitus; Z87.891 Personal history of nicotine dependence; Z88.0 Allergy status to penicillin
CPT/HCPCS: 36415; 36569; 70450; 70553; 71045; 80048; 80053; 81001; 83690; 83735; 83930; 83935; 84100; 84300; 84439; 84443; 84484; 85025; 93005; 96361; 96365; 96366; 96375; 96376; A9585; J0780; J1644; J1885; J2270; J2405; J3010; J3475; J3490; J7030; 99285-25

== ENCOUNTER → 2018-08-09 | Outpatient (CLI) | payer OTHER ==
[~2018-08-09] MED LIST changes: +BORT3.5V IJ; +DEXA6TAB PO; +MORP15TA3 PO; +OXYC5TAB95 PO; +POLY17PO29 PO; +SENN8.6T99 PO; +SULF1TAB24 PO
[2018-08-09 14:46] LABS: BASO % 0 % (0-3); EOS # 0.1 x10^3/uL (0.0-0.7); EOS % 2 % (0-3); HEMATOCRIT 30.9 % (39.0-53.0); HEMOGLOBIN 10.7 g/dL (13.0-17.5); LYMPH # 0.8 x10^3/uL (1.0-4.8); LYMPH % 11 % (24-48); MEAN CORPUSCULAR HEMOGLOBIN 33 pg (25-35); MEAN CORPUSCULAR HGB CONC 35 g/dL (31-37); MEAN CORPUSCULAR VOLUME 96 fL (79-100); MONO # 0.4 x10^3/uL (0.0-1.1); MONO % 6 % (0-9); NEUT # 5.5 x10^3uL (1.8-7.7); NEUT % 80 % (31-73); PLATELET COUNT 249 x10^3/uL (140-400); RED BLOOD COUNT 3.22 x10^6/uL (4.30-5.70); RED CELL DISTRIBUTION WIDTH 18.2 % (11.5-14.5); WHITE BLOOD COUNT 6.8 x10^3/uL (4.0-11.0)
[2018-08-09 15:26] LABS: ALBUMIN 3.5 g/dL (3.4-5.0); ALBUMIN/GLOBULIN RATIO 0.7 (1.0-1.7); CALCIUM 9.2 mg/dL (8.5-10.1); CREATININE 0.8 mg/dL (0.7-1.3); GFR 99.6; POTASSIUM 3.9 mmol/L (3.5-5.1); TOTAL BILIRUBIN 0.6 mg/dL (0.2-1.0); TOTAL PROTEIN 8.4 g/dL (6.4-8.2)
[2018-08-10 09:04] VITALS: BP 132/73
== END | disposition home or self-care (01) ==
LOC: LAB 14:01
PROVIDERS: ATTEND Internal Medicine Hematology & Oncology
DX: C90.00 Multiple myeloma not having achieved remission (principal)
CPT/HCPCS: 36415; 80053; 85025

== ENCOUNTER → 2018-08-18 | Outpatient (CLI) | payer OTHER ==
[2018-08-13 09:46] VITALS: BP 129/71
[~2018-08-18] MED LIST changes: +IOHEXOL 180 MG/ML 10 ML VIAL. ONE; +LIDOCAINE 1% PF 2 ML VIAL. ONE; +methylPREDNISolone ACETATE 40 MG/ML VIAL. ONE; +methylPREDNISolone ACETATE 80 MG/ML VIAL. ONE
--- NOTE | 2018-08-18 18:48 | PAIN ---
DATE OF SERVICE: 08/18/2018 DIAGNOSES: Lumbar radiculopathy with lumbar degenerative disk disease, lumbar spinal stenosis. HISTORY OF PRESENT ILLNESS: The patient is a 58-year-old male who returns for followup, I have seen an inpatient initially with low back and bilateral lower extremity pain. The patient reports the pain is still same, radiating to bilateral lower extremities, somewhat worse on the left than the right into the posterolateral thighs, posterior calves, medial anterior calf on the left and into the foot with radiating pain, intermittent in intensity, but always present, throbbing, shooting pain, stabbing, throbbing along the back as well. The patient reports it awakens him from sleep once or twice a night, does not affect his bowel or bladder control, but does affect his ability to walk. The patient reports he has had some epidural injections in the past, which were helpful in 2012. Also, taking morphine sulfate and oxycodone. The patient also has a primary diagnosis also of multiple myeloma, which has been treated for since May of this year and has been off work since that time. The patient rates his disability rate from 0-10, 10 being the worst and 8 with family home responsibilities, recreation, occupation, 6 with social activity, 8 with self-care, 6 with life support activities. The patient's MRI scan showing levels of spinal stenosis at L3-L4, more advanced degenerative disk disease at L3-L4 and L4-L5, spondylosis at the same levels with minimal narrowing greater distally on the right at L3-L4 as well. The patient reports no loss of motor function, but significant fatigability in the lower extremities, no new motor or sensory deficits, no new bowel or bladder incontinence or other complaints. PHYSICAL EXAMINATION: VITAL SIGNS: The patient's blood pressure is 132/84, pulse 87, respirations 16, temperature is 98.1 degrees Fahrenheit. Height is 5 feet 9 inches, weight is 224 pounds. GENERAL: The patient is awake, alert, oriented, appropriate, very pleasant demeanor. HEENT: Head is normocephalic, atraumatic. Extraocular movements are intact, symmetrical. Oral cavity: Mucous membranes moist and pink. Dentition is intact. NECK: Shows anterior throat supple without palpable lymphadenopathy noted. Swallow reflex is symmetrical. CHEST: Shows normal on inspection. Breath sounds are clear to auscultation bilaterally. HEART: Shows S1, S2 clear. No murmurs auscultated. ABDOMEN: Soft, nontender, nondistended. No palpable organomegaly is noted. No rebound or guarding demonstrated. BACK: Shows spine grossly in the midline. Normal appearing thoracic kyphosis and lumbar lordotic curvature slightly flattened. Lumbar paraspinous musculature shows symmetrical on inspection and palpation shows some mild tenderness, but only diffusely with palpation and only in the low lumbar distribution without radiation. The patient has good rotational motion of lumbar spine, both laterally as well as extension and flexion without difficulty. EXTREMITIES: The patient's lower extremities show deep tendon reflexes at 2+ in the patellar, 1+ tendo-calcaneus tendons. Motor exam is strong with 5/5 dorsiflexion, extension, quadriceps and hamstring flexion is symmetrical. Peripheral pulses are 1+. No peripheral edema is noted. Options were discussed with the patient. The patient's old chart was reviewed as his current medication regimen and updated. Current review of systems is updated today as well. We will proceed with a lumbar epidural steroid injection today with fluoroscopic guidance. Risks were again discussed including, but not limited to bleeding, infection, possibility of epidural hematoma and subsequent neurological compromise, dural puncture, headaches, spinal cord and/or nerve damage, side effects of steroid medication and poor results regarding pain control. The patient understands and wished to proceed. The patient to return to clinic in approximately 2 weeks for followup. She was counseled to return appointment, activity level and side effects to be aware of. DIAGNOSIS: Lumbar radiculopathy with lumbar degenerative disk disease, lumbar spinal stenosis. PROCEDURES: Lumbar epidural steroid injection translaminar approach, L4-L5 level using C-arm fluoroscopic guidance under sterile prep and drape using local anesthetic. MEDICATION INJECTED: A total of 120 mg Depo-Medrol plus 10 mL preservative-free normal saline and 2 mL of Isovue for contrast. CONDITION AT DISCHARGE: Stable. The patient tolerated the procedure well, had no complications. KHURRAM WOODS MD DR: KAM/reina JOB#: [id number] / [id number]
== END | disposition home or self-care (01) ==
LOC: PNCL 07:36
PROVIDERS: ATTEND Anesthesiology
DX: M51.16 Intervertebral disc disorders with radiculopathy, lumbar region (principal); F41.9 Anxiety disorder, unspecified; D64.9 Anemia, unspecified; I10 Essential (primary) hypertension; K21.9 Gastro-esophageal reflux disease without esophagitis; E78.5 Hyperlipidemia, unspecified; G89.29 Other chronic pain; E78.00 Pure hypercholesterolemia, unspecified; F32.9 Major depressive disorder, single episode, unspecified; M19.90 Unspecified osteoarthritis, unspecified site; G47.30 Sleep apnea, unspecified; E66.9 Obesity, unspecified; Z90.49 Acquired absence of other specified parts of digestive tract; Z88.8 Allergy status to other drugs, medicaments and biological substances; Z88.1 Allergy status to other antibiotic agents; Z79.899 Other long term (current) drug therapy; Z79.82 Long term (current) use of aspirin; Z88.0 Allergy status to penicillin; Z98.890 Other specified postprocedural states; Z87.891 Personal history of nicotine dependence
CPT/HCPCS: 62323; J1030; J1040; Q9965

== ENCOUNTER → 2018-09-01 | Outpatient (CLI) | payer OTHER ==
[2018-08-31 12:07] VITALS: BP 135/79
[~2018-09-01] MED LIST changes: +HYDR-3164 PO; -HYDR-971 PO
--- NOTE | 2018-09-01 09:29 | PAIN ---
DATE OF SERVICE: 09/01/2018 PROGRESS NOTE FOR PAIN CLINIC DIAGNOSES: Lumbar radiculopathy with lumbar degenerative disk disease, lumbar spinal stenosis. HISTORY OF PRESENT ILLNESS: The patient is a 58-year-old male who returns for followup status post lumbar epidural steroid injection x 1. The patient reports only about 20-30% improvement in his low back and bilateral lower extremity pain. The back is doing much better, but his legs are doing still some significant pain, mainly in the left side. The patient reports it is in the back of the knee and back of the calf and lateral aspect of the thigh as well. The patient reports it is an 8 on a scale of 10 at its worst, 5 on average and a 2 at its least. The patient reports it is dull, tight, tingling, burning, cramping, shooting, becoming more constant and more severe, worse with walking, standing, changing positions, difficulty with sleeping. The patient reports initially, the back was doing much better as was his left knee. Legs are still significantly painful keeping him awake at night. The patient reports now it is difficult to walk again. He feels as though his feet are heavy. 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 The patient reports no new motor or sensory deficits, no new bowel or bladder incontinence or other complaints. PHYSICAL EXAMINATION: VITAL SIGNS: The patient's blood pressure is 139/84, pulse 88, respirations 16, temperature is 98.0 degrees Fahrenheit, weight is 223 pounds. GENERAL: The patient is awake, alert, oriented, appropriate, very pleasant demeanor. HEENT: Head is normocephalic, atraumatic. Extraocular movements intact and symmetrical. Oral cavity: Mucous membranes moist and pink. Dentition is intact. NECK: Shows anterior throat supple without palpable lymphadenopathy noted. Swallow reflex symmetrical. CHEST: Shows normal on inspection. Breath sounds clear to auscultation bilaterally. HEART: Shows S1, S2 clear. No murmurs auscultated. ABDOMEN: Soft, nontender, nondistended. No palpable organomegaly is noted. No rebound or guarding demonstrated. BACK: Shows spine grossly in the midline. Normal appearing thoracic kyphosis and lumbar lordotic curvature. Lumbar paraspinous muscle shows symmetrical on inspection, with palpation shows some moderate tenderness only diffusely in the low lumbar distribution without radiation. The patient shows good rotational motion of lumbar spine both laterally as well as extension and flexion without significant difficulty. EXTREMITIES: The patient's lower extremities show deep tendon reflexes 2+ in the patellar and 1+ in the tendo-calcaneus tendons. Motor exam is strong with approximately 4 on a scale of 5, but equal and symmetrical bilaterally. Peripheral pulses are 1+ posterior tibia. No peripheral edema is noted. Options were discussed with the patient. The patient's old chart was reviewed as his current medication regimen updated. Current review of systems updated today as well. We will proceed with a second in a series of lumbar epidural steroid injection under fluoroscopic guidance. Risks were again discussed including, but not limited to bleeding, infection, possibility of epidural hematoma and subsequent neurological compromise, dural puncture, headaches, spinal cord and/or nerve damage, side effects of steroid medication and poor sleeping control. The patient understands and wished to proceed. The patient to return to clinic in approximately 2 weeks for followup. She was counseled to return appointment, activity level and side effects to be aware of. DIAGNOSIS: Lumbar radiculopathy with lumbar spinal stenosis, lumbar degenerative disk disease. PROCEDURE: Lumbar epidural steroid injection, translaminar approach at L5-S1 level using C-arm fluoroscopic guidance under sterile prep and drape using local anesthetic. MEDICATION INJECTED: A total of 120 mg Depo-Medrol plus 10 mL of preservative-free normal saline and 2 mL of Isovue for contrast. CONDITION AT DISCHARGE: Stable. The patient tolerated the procedure well, had no complications. KHURRAM WOODS MD DR: KAM/reina JOB#: [id number] / [id number]
== END | disposition home or self-care (01) ==
LOC: PNCL 07:28
PROVIDERS: ATTEND Anesthesiology
DX: M51.16 Intervertebral disc disorders with radiculopathy, lumbar region (principal); M48.061 Spinal stenosis, lumbar region without neurogenic claudication; Z88.0 Allergy status to penicillin; Z88.1 Allergy status to other antibiotic agents
CPT/HCPCS: 62323; J1030; J1040; Q9965

== ENCOUNTER → 2018-09-13 | Outpatient (CLI) | payer OTHER ==
[2018-09-10 10:14] VITALS: BP 123/66
[~2018-09-13] MED LIST changes: -GABA-586 PO; +GABA300C18 PO; -HYDR-2758 PO; +HYDR-2761 PO; -IOHEXOL 180 MG/ML 10 ML VIAL. ONE; -LIDOCAINE 1% PF 2 ML VIAL. ONE; -LOSA25TA5 PO; +LOSA25TA54 PO; -OXYC-323 PO; +OXYC1TAB15 PO; +OXYC5TAB4 PO; -OXYC5TAB95 PO; -methylPREDNISolone ACETATE 40 MG/ML VIAL. ONE; -methylPREDNISolone ACETATE 80 MG/ML VIAL. ONE
[2018-09-13 08:44] LABS: BASO % 0 % (0-3); EOS # 0.4 x10^3/uL (0.0-0.7); EOS % 9 % (0-3); HEMATOCRIT 35.1 % (39.0-53.0); HEMOGLOBIN 12.2 g/dL (13.0-17.5); LYMPH % 24 % (24-48); MEAN CORPUSCULAR HEMOGLOBIN 34 pg (25-35); MEAN CORPUSCULAR HGB CONC 35 g/dL (31-37); MEAN CORPUSCULAR VOLUME 97 fL (79-100); MONO # 0.6 x10^3/uL (0.0-1.1); MONO % 14 % (0-9); NEUT # 2.3 x10^3uL (1.8-7.7); NEUT % 54 % (31-73); PLATELET COUNT 134 x10^3/uL (140-400); RED BLOOD COUNT 3.61 x10^6/uL (4.30-5.70); RED CELL DISTRIBUTION WIDTH 17.2 % (11.5-14.5); WHITE BLOOD COUNT 4.3 x10^3/uL (4.0-11.0)
[2018-09-13 09:06] LABS: ALBUMIN 3.6 g/dL (3.4-5.0); ALBUMIN/GLOBULIN RATIO 1.1 (1.0-1.7); CALCIUM 8.6 mg/dL (8.5-10.1); CREATININE 0.8 mg/dL (0.7-1.3); GFR 99.6; MAGNESIUM 1.9 mg/dL (1.8-2.4); POTASSIUM 4.3 mmol/L (3.5-5.1); TOTAL BILIRUBIN 0.4 mg/dL (0.2-1.0); TOTAL PROTEIN 6.9 g/dL (6.4-8.2)
[2018-09-14 15:34] LABS: KAPPA FREE 15.1 mg/L (3.3-19.4); KAPPA LAMBDA RATIO 0.63 (0.26-1.65)
[2018-09-15 16:23] LABS: ALBUM 3.6 g/dL (2.9-4.4); ALPHA 1 0.2 g/dL (0.0-0.4); ALPHA 2 0.7 g/dL (0.4-1.0); BETA 0.9 g/dL (0.7-1.3); COMMENT IMMUNOFIX SERUM Note: (.); GAMMA 0.6 g/dL (0.4-1.8); IMMUNOGLOBULIN A 215 mg/dL (90-386); IMMUNOGLOBULIN G 377 mg/dL (700-1600); IMMUNOGLOBULIN M 145 mg/dL (20-172); PROTEIN TOTAL 6.1 g/dL (6.0-8.5); SPEP AG RATIO 1.4 (0.7-1.7)
== END | disposition home or self-care (01) ==
LOC: LAB 08:14
PROVIDERS: ATTEND Internal Medicine Hematology & Oncology
DX: C90.00 Multiple myeloma not having achieved remission (principal)
CPT/HCPCS: 36415; 80053; 82784; 83520; 83735; 84165; 85025; 86334

== ENCOUNTER → 2018-09-22 | Outpatient (CLI) | payer OTHER ==
[2018-09-10 10:14] VITALS: BP_SYST 123
[2018-09-14 09:16] VITALS: BP_DIAS 68
--- NOTE | 2018-09-22 11:04 | PAIN ---
DATE OF SERVICE: 09/22/2018 PROGRESS NOTE FOR PAIN CLINIC DIAGNOSES: Lumbar radiculopathy with lumbar degenerative disk disease and lumbar spinal stenosis. HISTORY OF PRESENT ILLNESS: The patient is a 58-year-old male who returns for followup status post lumbar epidural steroid injection x 2. The patient reports only about 20%-25% improvement overall and essentially the same after the first injection. The patient still reports pain in the low back, bilateral lower extremities, mostly itching, burning, tingling, feels like a rock in his calves, the toes with significant sensation of neuropathic pain with hot and cold sensations and burning sensations. The patient reports as tingling, burning, aching, sharp, tight across the low back radiating into the lower extremities again and mostly in the calves and feet. The patient reports it is a 6 on a scale 10 at its worst, 4 on average, 2 at its least and is a 4 today. The patient reports it is awakening him from sleep about every 3-4 hours. The pain initially does not awaken him from sleep but his bladder does. The patient reports no new motor or sensory deficits and no new bowel or bladder continence or other complaints. PHYSICAL EXAMINATION: VITAL SIGNS: The patient's blood pressure 123/83, pulse 91, respirations 16 and temperature 98.4 degrees Fahrenheit. Weight is 232 pounds. GENERAL: The patient is awake, alert, oriented, appropriate and very pleasant demeanor. HEENT: Head shows normocephalic and atraumatic. Extraocular movements are intact and symmetrical. Oral cavity, mucous membranes are moist and pink. Dentition is intact. NECK: Shows anterior throat supple without palpable lymphadenopathy noted. Swallow reflex is symmetrical. Neck shows full rotational motion of the cervical spine without difficulty. CHEST: Shows normal with inspection. Breath sounds are clear to auscultation bilaterally. HEART: Shows S1 and S2 clear. No murmurs auscultated. ABDOMEN: Obese, soft, nontender and nondistended. No palpable organomegaly is noted. No rebound or guarding demonstrated. BACK: Shows spine grossly in the midline. Normal-appearing thoracic kyphosis and some minor flattening of lumbar lordotic curvature. Lumbar paraspinous muscle shows symmetrical on inspection and with palpation shows some moderate tenderness diffusely throughout the upper, middle and lower distribution of the paraspinous muscles but only diffusely without radiation, without trigger points. The patient has good rotational motion of the lumbar spine both laterally greater than 10 degrees, right and left as well as extension to 10 degrees, forward flexion 45 degrees without significant pain reported. EXTREMITIES: Lower extremities show deep tendon reflex is 2+ in patellar tendons. Motor exam is approximately 4 on a scale of 5 but equal and symmetrical with dorsiflexion, extension, quadriceps and hamstring flexion. Peripheral pulses are 1+ posterior tibial. No peripheral edema is noted bilaterally. Options were discussed with the patient. The patient's old chart was reviewed as well as his current medication regimen updated. Current review of systems updated today as well. We will hold on any further injections at this time as the patient is only with about 20%-25% improvement after the first and second injections. The patient would like to wait. He does have chemotherapy, which is continuing and we would like to see how this does after the chemotherapy is out of his system. I agree we will wait until this is out of his system and see if this decreases some of the neuropathic component of his pain. In the meantime, we discussed increasing the gabapentin slightly, he is taking 800 mg 3 times daily. We will give him 100 mg tablet to take on top of this to make it 900 mg or 1000 as he tried 1100, which made him very sleepy. We will see if this may decrease the neuropathic pain in the meantime, mostly chemotherapy is out of his system and stem cell techniques are completed next month. If the pain is still persistent, may try another injection at that time and we discussed his options. The patient was given instructions as well as side effects to be aware of with the medication and we will follow up as scheduled. KHURRAM WOODS MD DR: KAM/reina JOB#: [id number] / [id number]
== END | disposition home or self-care (01) ==
LOC: PNCL 07:37
PROVIDERS: ATTEND Anesthesiology
DX: M51.16 Intervertebral disc disorders with radiculopathy, lumbar region (principal); M48.061 Spinal stenosis, lumbar region without neurogenic claudication
CPT/HCPCS: G0463

== ENCOUNTER → 2018-10-01 | Outpatient (CLI) | payer OTHER ==
[2018-09-28 09:50] VITALS: BP 123/71
[2018-10-01 10:30] LABS: BASO % 0 % (0-3); EOS % 1 % (0-3); HEMATOCRIT 36.1 % (39.0-53.0); HEMOGLOBIN 12.5 g/dL (13.0-17.5); LYMPH # 0.4 x10^3/uL (1.0-4.8); LYMPH % 8 % (24-48); MEAN CORPUSCULAR HEMOGLOBIN 33 pg (25-35); MEAN CORPUSCULAR HGB CONC 35 g/dL (31-37); MEAN CORPUSCULAR VOLUME 96 fL (79-100); MONO # 0.1 x10^3/uL (0.0-1.1); MONO % 1 % (0-9); NEUT # 4.4 x10^3uL (1.8-7.7); NEUT % 89 % (31-73); PLATELET COUNT 151 x10^3/uL (140-400); RED BLOOD COUNT 3.77 x10^6/uL (4.30-5.70); RED CELL DISTRIBUTION WIDTH 16.5 % (11.5-14.5); WHITE BLOOD COUNT 4.9 x10^3/uL (4.0-11.0)
[2018-10-01 10:51] LABS: ALBUMIN/GLOBULIN RATIO 1.1 (1.0-1.7); CALCIUM 9.2 mg/dL (8.5-10.1); POTASSIUM 4.6 mmol/L (3.5-5.1); TOTAL BILIRUBIN 0.7 mg/dL (0.2-1.0); TOTAL PROTEIN 7.5 g/dL (6.4-8.2)
[2018-10-01 11:22] LABS: % EOS 1 % (0-5); % LYMPHS 7 % (24-48); % MONOS 1 % (0-10); % SEGS 91 % (35-66)
[2018-10-01 11:23] LABS: PLT ESTIMATE ADEQUATE (ADEQUATE)
== END | disposition home or self-care (01) ==
LOC: LAB 09:59
PROVIDERS: ATTEND Internal Medicine Hematology & Oncology
DX: C90.00 Multiple myeloma not having achieved remission (principal)
CPT/HCPCS: 36415; 80053; 85007; 85025

== ENCOUNTER → 2018-11-18 | Outpatient (CLI) | payer OTHER ==
[2018-10-22 09:47] VITALS: BP 126/77
[~2018-11-18] MED LIST changes: +TRAZ-85 PO
--- NOTE | 2018-11-18 10:12 | RAD ---
Exam performed: 2 views of the chest. Indication: MULTIPLE MYELOMA REMISSION STATUS Date of Service: 11/18/2018 12:00 AM . Comparison : One view chest from 08/02/2018 Findings: PA and lateral radiographs of the chest reveal a normal cardiomediastinal contour. The lungs are essentially clear. There is a linear opacity in the right lung base probably an area of scarring or atelectasis. No pleural fluid is seen. The visualized osseous structures are unremarkable. Impression: Linear right basilar scarring or atelectasis, otherwise no acute cardiopulmonary process seen. Electronically signed by: Cait Sosa MD (11/18/2018 10:07 AM) [place] [id number]
--- NOTE | 2018-11-18 11:26 | RAD ---
Examination: BONE SURVEY METASTATIC COMPL History: MULTIPLE MYELOMA REMISSION STATUS Comparison/Correlation: Metastatic skeletal survey 06/18/2018, CT head without contrast 08/02/2018 Findings: A total of 21 images were obtained for purposes metastatic skeletal survey x-ray exam. Lucency involving the frontal bone region of the lateral view has a corresponding finding on the previous CT exam and previous skeletal survey exam. Additional small lucencies also are present without significant change. Reversal cervical lordosis is present. Degenerative disc space narrowing involving cervical spine again seen. Mild spurring of the lumbar spine is present. Significant degenerative disc space narrowing of the low lumbar spine again identified. No metastatic lytic lesion in the interval identified to involve the spine, extremities, or bony thorax. First carpometacarpal joint degenerative change bilaterally seen. Impression: No new lytic lesions to suggest progression of multiple myeloma. Lytic lucencies of the skull are unchanged. Electronically signed by: Mohsen Hernandez MD (11/18/2018 11:22 AM) [facility]
--- NOTE | 2018-11-18 18:21 | RAD ---
Examination: PET W CT WHOLE BODY History: Multiple myeloma Comparison/Correlation: CT abdomen and pelvis without contrast 07/12/2018, CT head without contrast 08/02/2018 Technique: PET CT exam available body was performed following 10.2 mCi F-18 FDG. Sagittal and coronal reformatted images were provided. Blood glucose level of 123 mg/dL noted at the time of injection. Findings: Focal intense uptake involving the right lateral vertex is present with SUV max of 3.1. This however correlates with soft tissues of the scalp. No suspicious bony finding at this level identified either. Lytic lucencies involving the calvarium are similar upon correlation with previous CT images. Globes and optic nerves are unremarkable. Soft tissues of the neck have normal uptake of radiotracer. Uptake of radiotracer involving the chest is also normal. No suspicious pulmonary nodule or mass lesions. Old right lower lateral rib fracture is present without abnormal uptake. Anterior right lung base punctate nodule is stable compared to previous CT abdomen and pelvis without contrast 07/12/2018. At the posterior right costophrenic sulcus pleural, there is a focus of intense uptake with SUV max of 4.5. This is of indeterminate significance. No suspicious corresponding finding on CT images. Cholecystectomy noted. Liver, spleen, pancreas, adrenal glands, and left kidney are unremarkable. At the right renal lateral interpolar region, there is an intermediate density lobulated mass lesion measuring 3.1 cm anteroposterior by approximate 2.8 cm transverse by approximately 3 cm longitudinal. Intense uptake of this lesion is present with SUV max of 13. Uptake of radiotracer involving the left symphysis pubis is present with SUV max of 18. Subtle osteopenia this site is present and appears stable point correlation previous CT exam. Scattered small lucencies involving the low thoracic, lumbar, and sacral spine have remained stable since 07/12/2018 Severe degenerative disc disease of the lower lumbar spine again seen. Impression: At the lateral right renal interpolar region, there is a mass with intense uptake. MRI of the abdomen without and with contrast if able is recommended for more complete assessment. Primary neoplastic etiology is of concern. Intense uptake involving the left symphysis pubis. Subtle osteopenia at this site. Underlying metastatic involvement of concern. Indeterminate focus of uptake involving the right posterior basilar pleural. No suspicious corresponding CT finding. This is of indeterminate significance. 3 small lytic lesions of the spine and bony calvarium are similar for question previous exams and correspond with reported history of multiple myeloma.
== END | disposition home or self-care (01) ==
LOC: PETSC 10:27
PROVIDERS: ATTEND Internal Medicine Hematology
DX: R91.1 Solitary pulmonary nodule (principal); M50.30 Other cervical disc degeneration, unspecified cervical region; M48.02 Spinal stenosis, cervical region; M51.36 Other intervertebral disc degeneration, lumbar region; M48.061 Spinal stenosis, lumbar region without neurogenic claudication; M40.40 Postural lordosis, site unspecified; M85.88 Other specified disorders of bone density and structure, other site; N28.89 Other specified disorders of kidney and ureter; Z90.49 Acquired absence of other specified parts of digestive tract; Z88.0 Allergy status to penicillin; Z88.1 Allergy status to other antibiotic agents
CPT/HCPCS: 71046; 77075; 78816; A9552

== ENCOUNTER → 2018-11-19 | Outpatient (CLI) | payer OTHER ==
[2018-10-22 09:47] VITALS: BP 126/77
--- NOTE | 2018-11-19 13:50 | CARD ---
MR#: [id number] Date of Study: 11/19/2018 Ordering Physician: PAM LOZA, Referring Physician: PAM LOZA, Tech: Anusha Brice APPROVED REPORT EXAM: Two-dimensional and M-mode echocardiogram with Doppler and color Doppler. Other Information Quality : AverageHR: 80bpm Technically limited study due to body habitus. INDICATION Multiple Myeloma RISK FACTORS Hypertension Previous smoker 2D DIMENSIONS RVDd3.5 (2.9-3.5cm)Left Atrium(2D)3.4 (1.6-4.0cm) IVSd0.9 (0.7-1.1cm)Aortic Root(2D)2.8 (2.0-3.7cm) LVDd5.5 (3.9-5.9cm)LVOT Diameter2.2 (1.8-2.4cm) PWd1.2 (0.7-1.1cm)LVDs3.5 (2.5-4.0cm) FS (%) 35.7 %SV95.3 ml LVEF(%)64.7 (>50%) Aortic Valve AoV Peak Stuart.213.5cm/sAoV VTI38.7cm AO Peak GR.18.2mmHgLVOT Peak Stuart.115.6cm/s LVOT VTI 21.75cmAO Mean GR.11mmHg MAYRA (VMAX)1.10lr7CPC (VTI)2.21cm2 Mitral Valve MV E Mavchwfd41.4cm/sMV DECEL KLAO401io MV A Aanlfovs18.2cm/sMV ETW06lo E/A Ratio1.0MVA (PHT)2.68cm2 TDI E/Lateral E'7.8 Pulmonary Valve PV Peak Tetbwcpu981.3cm/sPV Peak Grad.12mmHg Tricuspid Valve TR P. Qnbtgfer130yf/sRAP XAPQYEFG3fgEf TR Peak Gr.17zyYsUOQG83knFr Pulmonary Vein S1 Jcxwdcbk63.4cm/sD2 Mhdtaiwj53.8cm/s PVa cvguqdrp559snyf LEFT VENTRICLE The left ventricle is normal size. There is borderline concentric left ventricular hypertrophy. The l eft ventricular systolic function is normal.. The Ejection Fraction is 55-60%. There is normal LV seg mental wall motion. The left ventricular diastolic function and filling is normal for age. RIGHT VENTRICLE The right ventricle is normal size. There is normal right ventricular wall thickness. The right ventr icular systolic function is normal. ATRIA The left atrium size is normal. The right atrium size is normal. The interatrial septum is intact wit h no evidence for an atrial septal defect or patent foramen ovale as noted on 2-D or Doppler imaging. AORTIC VALVE The aortic valve is thickened but opens well. Doppler and Color Flow revealed no significant aortic r egurgitation. There is no significant aortic valvular stenosis. MITRAL VALVE The mitral valve is normal in structure and function. There is no evidence of mitral valve prolapse. There is no mitral valve stenosis. Doppler and Color-flow revealed trace mitral regurgitation. TRICUSPID VALVE The tricuspid valve is normal in structure and function. Doppler and Color Flow revealed trace tricus pid regurgitation. There is no tricuspid valve stenosis. PULMONIC VALVE The pulmonary valve is normal in structure and function. Doppler and Color Flow revealed trace pulmon ic valvular regurgitation. GREAT VESSELS The aortic root is normal in size. The IVC is normal in size and collapses >50% with inspiration. PERICARDIAL EFFUSION There is no evidence of significant pericardial effusion. Critical Notification Critical Value: No <Conclusion> The left ventricular systolic function is normal.. The Ejection Fraction is 55-60%. There is normal LV segmental wall motion. Trace mitral regurgitation. Trace tricuspid regurgitation. There is no evidence of significant pericardial effusion. Signed by : Champ Loredo, Electronically Approved : 11/19/2018 13:47:29
--- NOTE | 2018-11-19 13:59 | EKG ---
[facility] [address] [place] [address] Test Date: 2018-11-19 Test Time: 13:36:53 Pat Name: JHON FORTE Department: Room: Gender: M Parts Analyst: ALEXA : 1960 Requested By: PAM LOZA Order Number: [id number] Reading MD: Measurements Intervals [place] Rate: 69 P: 29 NH: 134 QRS: -3 QRSD: 86 T: 41 QT: 390 QTc: 419 Interpretive Statements SINUS RHYTHM LEFTWARD AXIS NO SPECIFIC ECG ABNORMALITIES RI6.01 Unconfirmed report Compared to ECG 08/02/2018 13:17:19 Left-axis deviation now present
== END | disposition home or self-care (01) ==
LOC: PF 09:42
PROVIDERS: ATTEND Internal Medicine Hematology
DX: C90.00 Multiple myeloma not having achieved remission (principal)
CPT/HCPCS: 93005; 93306; 94010; 94729

== ENCOUNTER 2018-11-22 06:44 | Outpatient (CLI) | payer OTHER ==
[~2018-11-22] VITALS: Ht 177.8 cm; Wt 110.2 kg
[2018-11-22] VITALS (8 sets, daily range): BP systolic 106–138; BP diastolic 74–90
[~2018-11-22 06:44] MED LIST changes: -TRAZ-85 PO
[2018-11-22] MEDS ORDERED: GABA300C18 PO (07:20)
[2018-11-22] MEDS ORDERED: SULF-143 PO (07:20)
[2018-11-22] MEDS ORDERED: TRAZ-118 PO (07:23)
[2018-11-22 07:28] LABS: BASO % 1 % (0-3); EOS # 0.2 x10^3/uL (0.0-0.7); EOS % 5 % (0-3); HEMATOCRIT 36.1 % (39.0-53.0); HEMOGLOBIN 12.4 g/dL (13.0-17.5); LYMPH % 28 % (24-48); MEAN CORPUSCULAR HEMOGLOBIN 34 pg (25-35); MEAN CORPUSCULAR HGB CONC 34 g/dL (31-37); MEAN CORPUSCULAR VOLUME 99 fL (79-100); MONO # 0.3 x10^3/uL (0.0-1.1); MONO % 9 % (0-9); NEUT % 57 % (31-73); PLATELET COUNT 180 x10^3/uL (140-400); RED BLOOD COUNT 3.66 x10^6/uL (4.30-5.70); RED CELL DISTRIBUTION WIDTH 16.7 % (11.5-14.5); WHITE BLOOD COUNT 3.5 x10^3/uL (4.0-11.0)
[2018-11-22 07:38] LABS: PROTHROMBIN TIME PATIENT 13.2 SEC (11.7-14.0)
[2018-11-22] MEDS ORDERED: fentaNYL PF VIAL 100 MCG/2 ML VIAL ONE (07:55)
[2018-11-22] MEDS ORDERED: MIDAZOLAM HCL/PF 2 MG/2 ML VIAL. ONE (07:55)
[2018-11-22] MEDS ORDERED: FLUMAZENIL 0.5 MG/5 ML VIAL. IV ONE (07:56)
[2018-11-22] MEDS ORDERED: NALOXONE 0.4 MG/ML VIAL. ONE (07:56)
[2018-11-22] MEDS ORDERED: LIDOCAINE WITH 8.4% SOD BICARB 3 ML DISP.SYRIN. ONE (07:57)
[2018-11-22] MEDS ORDERED: MIDAZOLAM HCL/PF 2 MG/2 ML VIAL. IV ONE (09:00)
[2018-11-22] MEDS ORDERED: LIDOCAINE WITH 8.4% SOD BICARB 3 ML DISP.SYRIN. IJ ONE (09:00)
[2018-11-22] MEDS ORDERED: fentaNYL PF VIAL 100 MCG/2 ML VIAL IV ONE (09:00)
--- NOTE | 2018-11-22 10:30 | NUR ---
Discharge Note: JOHN FORTE Discharge instructions and discharge home medications reviewed as well as s/s requiring further attention, wound care, and follow up with patient and a copy given. Pt tolerating all PO adequately with no s/s of bleeding noted. All questions have been answered and understanding verbalized. The following instructions and handouts were given: post bone marrow biopsy,post moderation sedation, wound care Discontinued lines and drains: peripheral IV Patient discharged to home with family member.
--- NOTE | 2018-12-07 17:08 | PATHOLOGY ---
[facility] Accession Number: [id number] . 01 Material submitted: . PART A: BONE MARROW BX PART B: BM CLOT PART C: BM ASP SMEAR PART D: PERIPHERAL SMEARS PART E: BM FLOW . 01 Clinical history: . Previously diagnosed multiple myeloma. . 02 Diagnosis: Peripheral smear: - Normocytic normochromic anemia, mild. - Leukopenia, mild. . Bone marrow, aspirate smears, clot section, and core biopsy: - Normocellular marrow showing trilineage hematopoiesis, erythroid hyperplasia, no significant dyspoiesis, and a small population of plasma cells scattered throughout marrow with a focal cluster of plasma cells present showing immunophenotypic evidence of kappa light chain restriction. See description and comment. - Adequate iron stores. LBQ/12/07/2018 . 02 Comment: Most of the marrow particles overall show less than 5% plasma cells. There is a small population (0.2%) of monoclonal plasma cells showing kappa light chain restriction identified by flow cytometry. In situ hybridization for kappa and lambda light chain demonstrate a predominance of kappa light chain plasma cells. One of the marrow particles in the clot section shows a small focus of clustering of plasma cells which show kappa light chain restriction, consistent with a small focus of residual plasma cell myeloma. . The case is also examined by Dr. Velez, who concurs with the diagnosis. (JPM/db; 12/06/2018) . Special stains performed: Iron stain on the aspirate smear on the clot section B1 and reticulin stain on A1 . The immunoperoxidase stain is for CD138 on A1 and B1 and the in situ hybridization for kappa light chain on A1 and B1 and for lambda light chain on A1 and B1. . 02 Electronically signed: . Rojas Baker MD, Pathologist NPI- [id number] . 01 Gross description: . A. The specimen is received in formalin, labeled "Kamran Jerry, bone marrow BX" and consists of 2 bone cores measuring 0.4 cm and 1.3 cm in length and 0.2 cm each in diameter which are entirely submitted in A1 following decalcification. . B. The specimen is received in formalin, labeled "Kamran Jeryr, BM-clot-asp" and consists of blood clot measuring 2.5 x 1.8 x 0.4 cm which is entirely submitted in B1. (SDY; 11/22/2018) SYU/SYU . 02 Microscopic: . Laboratory Data: The WBC count is 3.5 K/CMM, and the automated WBC differential reveals 57% neutrophils, 28% lymphs, 9% monos, 5% eos, and 1% baso. The RBC count is 3.66 M/CMM, hemoglobin 12.4 G/DL, hematocrit 36.1%, MCV 99 FL, MCH 34 PG, MCHC 34 G/DL, and the RDW is 16.7%. The platelet count is 180 K/CMM. Additional laboratory studies are dated 10/19/18. The total protein is 6.4 G/DL, albumin 3.4 G/DL, and globulin 3.0 G/DL. Serum protein electrophoresis shows no evidence of a monoclonal spike. Serum immunofixation reveals an apparent normal immunofixation pattern. The serum IgG is 323 MG/DL, IgA 59 MG/DL, and IgM 60 MG/DL. The serum free kappa light chain is 9.6 MG/L, free lambda light chain 10.7 MG/L, and the kappa/lambda ratio is 0.9. . Peripheral Smear: The peripheral smear is reviewed. The WBC count is mildly decreased. The WBC differential reveals a predominance of segmented neutrophils, with smaller populations of lymphocytes, monocytes, and eosinophils noted. Neutrophils do not show dysplastic changes. There is no significant neutrophilic left shift. There is no leukoerythroblastic reaction. The lymphocyte population consists predominantly of small mature appearing lymphocytes. There are no circulating plasma cells. Red blood cells appear normochromic. Red blood cells show mild anisocytosis and range from normocytic to mildly macrocytic. Red blood cells show no significant poikilocytosis. There is no evidence of red blood cell rouleaux. Platelets appear adequate in number and normal in morphology. . Aspirate Smears: Two Liu's-stained and one iron-stained aspirate smears are examined. The smears contain multiple marrow particles. There is an erythroid hyperplasia. Erythroid maturation predominantly appears normoblastic. Some erythroid precursors show mild megaloblastoid changes. There are no megaloblastic or overt dysplastic changes. Granulopoiesis qualitatively appears normal. There is no significant left shift or dysplastic changes. There is no increase of blasts. Megakaryocytes appear adequate and are of variable ploidy. Plasma cells are not increased. Plasma cells overall comprise less than 3% of nucleated marrow cells. Some of the plasma cells are atypical and are enlarged and possess enlarged eccentric nuclei containing prominent nucleoli. One of the smears contains a few cellular marrow particles surrounded by an increased proportion of small lymphocytes consistent with a smeared lymphoid nodule. There are no cells foreign to the marrow. The iron-stained aspirate smear shows adequate iron stores. No ringed sideroblasts are identified. . Bone Marrow Biopsy and Clot Sections: Sections of the bone marrow biopsy reveal segments of bone marrow which are on the order of 30% to 40% cellular. The clot sections contain multiple marrow particles which range between 20% and 50% cellular. There is trilineage hematopoiesis with a modest erythroid hyperplasia. There are admixed erythroid and granulocytic precursors which are present in varying staging of maturation. There is no increase of blasts. Megakaryocytes overall appear adequate in number and are of variable ploidy. There are two small discrete non-paratrabecular lymphoid aggregates present within the biopsy, which are comprised predominantly of small lymphocytes having rounded to slightly irregular nuclei. The are scattered admixed plasma cells with no solid clusters or areas of sheet-like replacement by plasma cells noted. There are no granulomas or other cells foreign to the marrow. To confirm flow cytometric findings and characterize the target cells in a tissue architectural context, immunoperoxidase stains for CD138 and in situ hybridization for kappa and lambda light chain are obtained on the biopsy and clot section and yield the following results: . CD138 (A1) - Plasma cells positive scattered throughout marrow; plasma cells overall comprise no more than 3-5% of nucleated marrow cells. . [place] and lambda MARCIE (A1) - Plasma cells are predominantly kappa light chain positive with a small number of scattered lambda light chain plasma cells noted. . CD138 (B1) - Plasma cells positive scattered throughout marrow and focally clustered in one marrow particle; plasma cells overall comprise less than 5% of nucleated marrow cells. . [place] and lambda MARCIE (B1) - Plasma cells are predominantly kappa light chain positive including area of clustered plasma cells within marrow particle; small number of lambda light chain positive plasma cells scattered throughout marrow. . A reticulin stain obtained on the biopsy shows no increase of reticulin fibers. An iron stain obtained on the clot section shows decreased iron stores. No ringed sideroblasts are identified. . Special Studies: Bone marrow submitted for flow cytometry has a viability of 98.1%. Granulocytes comprise 74.3% of total cells and show phenotypic evidence of maturation. Monocytes comprise 2.8% of total cells and show phenotypic evidence of maturation. CD45 dim, CD34 positive cells comprise 1.4% of total cells. Lymphocytes comprise 12.7% of total cells. T-cells comprise 75% of lymphoid cells and show a CD4/CD8 ratio of 1.4. NK-cells comprise 15% of lymphoid cells. Mature B-cells comprise 4% of lymphoid cells and are polyclonal with a kappa:lambda ratio of 2.3. CD45 negative plasma cells comprise 0.2% of total cells and show cytoplasmic kappa light chain restriction. These plasma cells express CD138, CD38, CD19 (partial), and CD56 (partial). They are negative for CD20 and CD117. CD45 positive plasma cells comprise 0.5% of total cells and are polyclonal. . Bone marrow submitted for cytogenetic analysis shows a normal male karyotype in all cells analyzed. The clonal abnormality observed in a previous specimen is not observed in the cells analyzed from the current specimen. . A plasma cell myeloma FISH panel analysis yields normal results. (JPM/db; 12/06/2018) . 02 Pathologist provided ICD-10: D75.89, D72.819, D64.9 . 02 CPT . 898633, 855733, 156362, 270870, 695370, 145525, 093590, 674494, A28242, K86514, Z79879 Specimen Comment: A courtesy copy of this report has been sent to Specimen Comment: [phone], , . Specimen Comment: Report sent to ,DR LOZA / DR RIOJAS Specimen Comment: A duplicate report has been generated due to demographic updates. Performed at: [address] [place] [address] [address], [place], [place] [id number] MD Kevin Dhaliwal MD Phone: [phone] Performed at: [address] [id number] MD Rojas Baker MD Phone: [phone]
--- NOTE | 2019-01-04 14:58 | RAD ---
CT-guided bone marrow biopsy. 01/04/2019 2:54 PM Indication: Multiple Myeloma Discussion: The risks and benefits of the procedure, including but not limited to, bleeding and infection were discussed patient. Informed consent was obtained. The patient was brought to the CT scanner and placed in the prone position. A timeout procedure was performed. Iv Technician CT imaging of the pelvis demonstrated left ilium amenable to bone marrow biopsy. The overlying soft tissues were prepped and draped using maximum sterile barrier technique. 1% lidocaine without epinephrine was administered for local anesthesia. Under intermittent CT guidance, an OncControl needle was advanced into the bone marrow of the left iliac crest. 2 Aspirates and 1 core biopsy samples were obtained. Samples were delivered to pathology was present at the time of procedure. The needle was removed and manual pressure held to achieve hemostasis. No immediate complications were identified. The procedure was performed under conscious sedation including continuous cardiopulmonary monitoring via dedicated sedation nurse. Sedation time: 20 minutes Impression: Successful CT-guided bone marrow biopsy of the left iliac crest . PQRS Compliance Statement: One or more of the following individualized dose reduction techniques were utilized for this examination: 1. Automated exposure control 2. Adjustment of the mA and/or kV according to patient size 3. Use of iterative reconstruction technique
== END 2018-11-22 10:30 | disposition home or self-care (01) ==
LOC: INTRAD 06:44
PROVIDERS: ATTEND Internal Medicine Hematology
DX: D75.89 Other specified diseases of blood and blood-forming organs (principal); D72.819 Decreased white blood cell count, unspecified; D64.9 Anemia, unspecified; I10 Essential (primary) hypertension; Z85.79 Personal history of other malignant neoplasms of lymphoid, hematopoietic and related tissues; Z88.0 Allergy status to penicillin; Z88.1 Allergy status to other antibiotic agents; Z79.01 Long term (current) use of anticoagulants; Z87.891 Personal history of nicotine dependence
CPT/HCPCS: 36415; 38222; 77012; 85025; 85610; 88184; 88185; 88237; 88305; 88311; 88313; 88342; 88364; 88365; 99152; J2250; J3010

== ENCOUNTER → 2018-11-24 | Outpatient (CLI) | payer OTHER ==
[2018-11-22 10:10] VITALS: BP 137/86
[~2018-11-24] MED LIST changes: +FENT1PAT15 TP; +GADOBUTROL 10 MMOL/10 ML VIAL IV ONE; +LOPE2CAP PO; +LORA2ORA7 SL; +MORP100S3 SL; +OMEP40CA5 PO; +ONDA4TAB12 PO; +POTA20TA82 PO; +PROC5TAB14 PO; +SCOP1PAT11 TD; +TRAZ-118 PO
--- NOTE | 2018-11-25 09:23 | RAD ---
MR of the kidneys with gadolinium, 11/24/2018: History: Right renal mass Imaging was performed in axial and coronal planes utilizing a variety of imaging sequences including T2 weighted, fat suppressed T2-weighted, diffusion-weighted, opposed phase gradient echo sequences as well as and dynamic T1 fat suppressed imaging following IV injection of 10 cc of the Gadavist contrast agent. There is mild bilateral renal cortical scarring. There is mild streaky perinephric edema bilaterally. There is no evidence of obstruction. No left renal mass is identified. There is an elongated superficial mass along the lateral margin of the mid to lower pole of the right kidney. It measures 32 x 28 x 15 mm. This corresponds to a hypermetabolic mass seen on the FDG PET/CT study of 11/18/2018. This process was not evident on a postcontrast CT exam from 11/08/2015. It demonstrates slightly decreased signal intensity on the T1 and T2-weighted sequences. No definite restricted diffusion is seen. The Gadavist bolus appears to have been somewhat suboptimal, however, mild enhancement of this process is evident. No other renal abnormality is detected. IMPRESSION: A neoplastic etiology such as a renal cell carcinoma is most likely. An inflammatory/infectious process is a less likely possibility. CT-guided biopsy should be considered for further evaluation.
== END | disposition home or self-care (01) ==
LOC: MRI 07:40
PROVIDERS: ATTEND Physician Assistant Medical
DX: N28.89 Other specified disorders of kidney and ureter (principal); R60.0 Localized edema
CPT/HCPCS: 74183; A9585

== ENCOUNTER → 2019-04-07 | Outpatient (CLI) | payer OTHER ==
[2018-11-22 10:10] VITALS: BP 137/86
[~2019-04-07] MED LIST changes: -FENT1PAT15 TP; -GADOBUTROL 10 MMOL/10 ML VIAL IV ONE; -LOPE2CAP PO; -LORA2ORA7 SL; -MORP100S3 SL; -OMEP40CA5 PO; -ONDA4TAB12 PO; -POTA20TA82 PO; -PROC5TAB14 PO; -SCOP1PAT11 TD
--- NOTE | 2019-04-07 14:15 | RAD ---
FDG tumor localization scan, 04/07/2019: HISTORY: Multiple myeloma Following IV injection of 12.8 mCi of 18 F-FDG, imaging was performed from the skull base through the feet. The noncontrast CT component was performed for attenuation correction and anatomic localization purposes rather than for primary diagnosis. The patient's blood glucose level at the time of injection was 107 MG/DL. Comparison is made to a study from 11/18/2018. Innumerable hypermetabolic bony lesions have developed. There is now involvement of multiple ribs, vertebrae the bony pelvis and the long bones including both humeri and femurs. The previously seen lesion at the left symphysis pubis has progressed with increase in bone destruction and sclerosis. Hypermetabolic densities in the posterior costophrenic angle on the right have markedly progressed. There is increased soft tissue in this region extending medially to the paraspinous level. The maximum SUV in this region is 34.5. The hypermetabolic mass previously seen along the lateral margin of the right kidney has increased in size now measuring 3.8 cm. There are additional streaky perinephric densities on the right. There is a new 2.7 cm hypermetabolic perinephric soft tissue density along the posteromedial aspect of the right kidney demonstrate a maximum SUV of 8.3. Mild left periaortic adenopathy has developed consisting of a 15 mm lymph node demonstrating a maximum SUV of 7.0. In addition to abnormal activity in the long bones there also several small hypermetabolic foci in the soft tissues of the calf musculature bilaterally. These may represent tumor deposits. There is increased muscular activity in the lower legs which is probably physiologic. IMPRESSION: Marked interval progression of disease as described above includin. New extensive multifocal osseous disease including the long bones. 2. 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 3. Enlarging right renal mass with a new hypermetabolic right perinephric mass. 4. Mild hypermetabolic periaortic adenopathy.
== END | disposition home or self-care (01) ==
LOC: PETSC 11:11
PROVIDERS: ATTEND Internal Medicine Hematology & Oncology
DX: Z52.011 Autologous donor, stem cells (principal); C90.00 Multiple myeloma not having achieved remission; N28.89 Other specified disorders of kidney and ureter; R59.0 Localized enlarged lymph nodes
CPT/HCPCS: 78815; A9552

== ENCOUNTER 2019-04-18 08:29 | Outpatient (CLI) | payer OTHER ==
[2019-04-18] VITALS (14 sets, daily range): BP systolic 92–124; BP diastolic 51–71
[~2019-04-18] VITALS: Ht 177.8 cm; Wt 98.9 kg
[2019-04-18] MEDS ORDERED: LIDOCAINE WITH 8.4% SOD BICARB 3 ML DISP.SYRIN. ONE (09:09)
[2019-04-18] MEDS ORDERED: fentaNYL PF VIAL 100 MCG/2 ML VIAL ONE (09:14)
[2019-04-18] MEDS ORDERED: MIDAZOLAM HCL/PF 2 MG/2 ML VIAL. ONE (09:14)
[2019-04-18] MEDS ORDERED: fentaNYL PF VIAL 100 MCG/2 ML VIAL IV ONE (09:30)
[2019-04-18] MEDS ORDERED: MIDAZOLAM HCL/PF 2 MG/2 ML VIAL. IV ONE (09:30)
[2019-04-18] MEDS ORDERED: LIDOCAINE WITH 8.4% SOD BICARB 3 ML DISP.SYRIN. IJ ONE (09:30)
[2019-04-18 09:39] LABS: CALCIUM 10.5 mg/dL (8.5-10.1); CREATININE 1.3 mg/dL (0.7-1.3); GFR 56.7; POTASSIUM 4.1 mmol/L (3.5-5.1)
[2019-04-18 09:41] LABS: BASO % 1 % (0-3); EOS # 0.1 x10^3/uL (0.0-0.7); EOS % 3 % (0-3); HEMATOCRIT 28.6 % (39.0-53.0); HEMOGLOBIN 9.9 g/dL (13.0-17.5); LYMPH # 0.9 x10^3/uL (1.0-4.8); LYMPH % 21 % (24-48); MEAN CORPUSCULAR HEMOGLOBIN 35 pg (25-35); MEAN CORPUSCULAR HGB CONC 35 g/dL (31-37); MEAN CORPUSCULAR VOLUME 100 fL (79-100); MONO # 0.4 x10^3/uL (0.0-1.1); MONO % 10 % (0-9); NEUT % 67 % (31-73); PLATELET COUNT 113 x10^3/uL (140-400); RED BLOOD COUNT 2.87 x10^6/uL (4.30-5.70); RED CELL DISTRIBUTION WIDTH 14.7 % (11.5-14.5); WHITE BLOOD COUNT 4.4 x10^3/uL (4.0-11.0)
[2019-04-18] MEDS ORDERED: LOPE2CAP PO (09:44)
[2019-04-18] MEDS ORDERED: ONDA4TAB12 PO (09:44)
[2019-04-18] MEDS ORDERED: POTA20TA82 PO (09:44)
[2019-04-18] MEDS ORDERED: PROC5TAB14 PO (09:44)
[2019-04-18] MEDS ORDERED: OMEP40CA5 PO (09:44)
[2019-04-18] MEDS ORDERED: DULO60CA6 PO (09:44)
[2019-04-18 09:45] LABS: ALBUMIN 3.3 g/dL (3.4-5.0); ALBUMIN/GLOBULIN RATIO 0.5 (1.0-1.7); PROTHROMBIN TIME PATIENT 13.7 SEC (11.7-14.0); TOTAL BILIRUBIN 0.5 mg/dL (0.2-1.0); TOTAL PROTEIN 9.4 g/dL (6.4-8.2)
[2019-04-18 11:36] LABS: % ATYL 1 % (0-0); % BANDS 5 % (0-9); % EOS 5 % (0-5); % LYMPHS 25 % (24-48); % MONOS 2 % (0-10); % SEGS 62 % (35-66); PLT ESTIMATE DECREASED (ADEQUATE)
--- NOTE | 2019-04-18 13:00 | NUR ---
pt A& O x3. denies any new pain. rt back flank site is D&I. no swelling or tenderness. left sacral area is D&I. VSS. tolerating po well. ambulating to BR w/ his cane w/o problem. d/c instructions reviewed. questions answered. out to vehicle per w/c. to drive him home
--- NOTE | 2019-04-18 14:05 | RAD ---
CT-guided bone marrow biopsy. 04/18/2019 1:[address]-guided biopsy, left chest wall mass Indication: History of multiple myeloma status post marrow transplant, recently discovered right renal mass, possible renal cell carcinoma, but atypical in appearance. Apparent metastatic disease involving the right chest wall and right retroperitoneum. Discussion: The risks and benefits of the procedure, including but not limited to, bleeding and infection were discussed patient. Informed consent was obtained. The patient was brought to the CT scanner and placed in the prone position. A timeout procedure was performed. Framing Inspector CT imaging of the pelvis demonstrated left ilium amenable to bone marrow biopsy. The overlying soft tissues were prepped and draped using maximum sterile barrier technique. 1% lidocaine without epinephrine was administered for local anesthesia. Under intermittent CT guidance, an OncControl needle was advanced into the bone marrow of the left iliac crest. 2 Aspirates and 1 core biopsy samples were obtained. Samples were delivered to pathology was present at the time of procedure. The needle was removed and manual pressure held to achieve hemostasis. No immediate complications were identified. CT imaging over the right chest wall was performed demonstrating a focal soft tissue thickening consistent with a mass, likely involving the underlying ninth rib. The overlying skin was prepped and draped using sterile barrier technique. 1% lidocaine was administered for local anesthesia. Under intermittent CT guidance 17-gauge needle was advanced into the mass. Core biopsy samples were obtained and placed in formalin. Needle was removed. Manual pressure was held to achieve hemostasis. Sterile dressings were applied. The procedure was performed under conscious sedation including continuous cardiopulmonary monitoring via dedicated sedation nurse. Sedation time: 30 minutes Impression: 1.Successful CT-guided bone marrow biopsy of the left iliac crest . 2. CT-guided biopsy, right chest wall mass PQRS Compliance Statement: One or more of the following individualized dose reduction techniques were utilized for this examination: 1. Automated exposure control 2. Adjustment of the mA and/or kV according to patient size 3. Use of iterative reconstruction technique
[2019-04-19 14:13] LABS: KAPPA FREE 8059.2 mg/L (3.3-19.4); KAPPA LAMBDA RATIO 3223.68 (0.26-1.65); LAMBDA FREE 2.5 mg/L (5.7-26.3)
[2019-04-20 14:14] LABS: IMMUNOGLOBULIN A 2725 mg/dL (90-386); IMMUNOGLOBULIN G 184 mg/dL (700-1600); IMMUNOGLOBULIN M 22 mg/dL (20-172)
[2019-04-20 19:12] LABS: ALBUM 3.3 g/dL (2.9-4.4); ALPHA 1 0.3 g/dL (0.0-0.4); ALPHA 2 0.8 g/dL (0.4-1.0); BETA 1.1 g/dL (0.7-1.3); GAMMA 3.1 g/dL (0.4-1.8); PROTEIN TOTAL 8.5 g/dL (6.0-8.5); SPEP AG RATIO 0.6 (0.7-1.7)
--- NOTE | 2019-04-21 09:08 | PATHOLOGY ---
[facility] Accession Number: [id number] . 01 Material submitted: . chest - RIGHT CHEST WALL MASS. Modifiers: right, wall . 01 Clinical history: . Multiple myeloma with met . 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 . (Please see comment). . (SKM:mmasif; 04/20/2019) [facility]/04/21/2019 . 02 Comment: The biopsy specimen consists of soft tissue which is diffusely infiltrated by CD138 positive plasma cells. The plasma cells exhibit kappa light chain restriction. No significant staining is seen in the plasma cells with lambda. The tumor cells also stain negative for NOEMY, CD10, S100, and Cytokeratin AE1/AE3. . This case has also been reviewed by Dr. Angélica Velez, who agrees with the diagnosis. . This patient's history of multiple myeloma is noted. Please refer to this patient's recent bone marrow biopsy for additional information. . . . . (SKM:mml; 04/20/2019) . 02 Electronically signed: . Mehdi Parsons MD, Pathologist NPI- [id number] . 01 Gross description: . Received in formalin labeled "Kamran Jerry, right chest wall mass," are 3 distinct needle cores of hwoard soft tissue ranging from 0.7 to 1.1 cm in length and measuring less than 0.1 cm each in diameter. The specimen is submitted entirely in cassettes A1 through A3. (TSD; 04/18/2019) TOB/TOB . 02 Pathologist provided ICD-10: C90.00 . 02 CPT . 129606, X02372, A47431, E71615, E36119 Specimen Comment: A courtesy copy of this report has been sent to Specimen Comment: [phone], , . Specimen Comment: Report sent to ,DR SALAZAR / DR RIOJAS Performed at: 01 [facility] [address] [facility] [address], [place] [id number] MD Kevin Dhaliwal MD Phone: [phone] Performed at: 02 [facility] [address] [place], [place] [id number] MD Rojas Baker MD Phone: [phone]
--- NOTE | 2019-04-22 17:06 | PATHOLOGY ---
[facility] Accession Number: [id number] . 01 Material submitted: . PART A: bone - BONE MARROW BIOPSY PART B: bone - BONE MARROW CLOT PART C: bone - BONE MARROW ASPIRATE SLIDES PART D: bone - PERIPHERAL BLOOD SMEARS PART E: bone - BONE MARROW FLOW . 01 Clinical history: . Multiple myeloma 59-year-old man with multiple myeloma. . 02 Diagnosis: Bone marrow aspirate, biopsy, cell clot and peripheral blood: - Peripheral blood with moderate macrocytic anemia, mild thrombocytopenia and rare circulating plasma cells. - HYPERCELLULAR BONE MARROW WITH TRILINEAGE HEMATOPOIESIS AND EXTENSIVE INVOLVEMENT BY PLASMA CELL MYELOMA (80-90% KAPPA RESTRICTED PLASMA CELLS BY IMMUNOHISTOCHEMICAL STAINING). - See comment. (KODI:minerva; 04/22/2019) MBR/04/22/2019 . 02 Comment: Overall the bone marrow is hypercellular (90-100% cellular) for the patient's age with trilineage hematopoiesis and extensive involvement by the patient's previously diagnosed plasma cell neoplasm ([phone]). 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 The findings are consistent with plasma cell myeloma. Currently there are 80-90% kappa restricted plasma cells by immunohistochemical staining. Correlation with clinical history, additional laboratory data and radiographic findings is required to determine the extent of the disease process and to exclude the possibility of another plasmacytoma. Correlation with cytogenetics and FISH studies is also recommended. (KODI:minerva; 04/22/2019) . 02 Electronically signed: . Angélica Velez MD, Pathologist NPI- [id number] . 01 Gross description: . A. Received in formalin labeled "Kamran Jerry." The container is not labeled with the specimen site. Per the requisition, the specimen site is "BM BX." Received are 3 fragments of needle cores of howard bone ranging from 0.5-0.6 cm in length and measuring 0.4 cm each in diameter. The specimen is submitted entirely in cassette A1, following decalcification. . B. Received in formalin labeled "Kamran Jerry, BM Asp-Clot," is an aggregate of dark howard blood clot measuring 4.5 x 3.5 x 0.3 cm. The specimen is filtered and entirely submitted in cassette B1 through B4. (TSD; 04/18/2019) TOB/TOB . 02 Microscopic: . CBC Data (04/18/19): WBC 4400 /uL, RBC 2.87, hemoglobin 9.9 g/dL, hematocrit 28.6%, MCV 100 fL, MCH 35 pg, MCHC 35 g/dL, RDW 14.7%, and platelet count 113,000 /uL. White blood cell differential: Segs 67%, lymphs 21%, monos 10%, eos 3%, and basos 1%. Manual white blood cell differential: Segs 62%, bands 5%, lymphs 25%, monos 2%, eos 5%, and atypical lymphs 1%. . Peripheral Blood Smear: Cytomorphological examination of the Liu's stained peripheral blood smear confirms the provided data. Red blood cells show moderate macrocytic anemia with no significant anisopoikilocytosis. Mild rouleaux is noted. White blood cells are predominantly segmented neutrophils and are without significant dyspoiesis or significant left shift. Lymphocytes are predominantly small, round and mature appearing with condensed chromatin and scant cytoplasm with admixed large granular lymphocytes. Plasmacytoid lymphocytes are noted. Rare circulating plasma cells are present and comprise 1-2% of the WBC differential. Monocytes are mature. Platelets are mildly decreased in number and mainly normal in morphology with rare larger platelets noted. . Aspirate Smears: Cytomorphological examination of the Liu's stained aspirate smears shows spicules present. The overall cellularity is approximately 90-100%. The myeloid to erythroid ratio is 2:1. Full myeloid maturation is identified and is without significant dyspoiesis. Erythroid maturation is mildly dyserythropoietic with irregular nuclear contours and left-shifted maturation. In a 500 cell differential, there are 1% blasts (no Brandon rods are seen), 30% more differentiated myeloids, 16% erythroid precursors, 11% lymphocytes and 42% plasma cells. Megakaryocytes are proportional in number and both normal and abnormal in morphology with variable sizes and nuclear abnormalities. No lymphoid aggregates or markedly atypical lymphoid cells are seen. Numerous atypical plasma cells are identified. The atypical features include immature chromatin, prominent nucleoli, hyperchromasia and binucleate/multinucleate forms. Iron stain of the aspirate smear shows 0/4+ iron positivity with only disrupted spicules present. No ringed sideroblasts are identified. . Core Biopsy and Cell Clot: The decalcified bone marrow core biopsy is adequate. The bone marrow is hypercellular with an overall cellularity of 90-100%. Sheets of atypical plasma cells are identified. Apart from the plasma cells, background trilineage hematopoiesis is reduced. In the small areas of less involved bone marrow, the myeloid to erythroid ratio is 2:1. Myeloid and erythroid maturation are mildly dyspoietic. Megakaryocytes are present. Bony trabeculae and blood vessels are unremarkable. The cell clot has rare spicules present, and numerous scattered plasma cells and blood/peripheral blood elements. . Properly controlled special stains are performed. . Block A1 Iron - 0/4+ iron positivity Reticulin - Mildly increased reticulin fibrosis in the sheets of plasma cells, trilineage hematopoiesis without significant fibrosis. . Iron (blocks B1, B2, B3, and B4) - 1/4+ iron positivity in the rare spicules present. . To further quantify and characterize the plasma cell population and to identify cells in a tissue architectural context, properly controlled immunohistochemical stains are performed. . Block A1 CD138 - stains 90% plasma cells including the large sheets [place] and lambda in situ hybridization - plasma cells are kappa restricted. . Block B4 CD138 - plasma cells comprise approximately 80-90% of the cellularity. [place] and lambda in situ hybridization - plasma cells are kappa restricted. . Flow Cytometry: Flow cytometric immunophenotypic analysis was performed at [email or web address]. The diagnosis is "monoclonal plasma cells (55.3% or total cells) consistent with a plasma cell myeloma." There are 7.8% lymphocytes. Of the lymphocytes, there are 67% T-cells with a CD4/CD8 ratio of 0.5 and no aberrant T-cell antigen expression and 19% polyclonal B-cells (kappa lambda ratio of 1.5). There are 0.3% CD34 positive cells (blasts) and 1.1% precursor B-cells. There are 55.3% plasma cells that show cytoplasmic kappa light chain restriction and are CD19 negative, CD38 bright, CD45 negative, CD56 negative, CD138 moderate and cyto kappa moderate. Flow cytometry findings are consistent with plasma cell myeloma. Please see separate flow cytometry report from [email or web address] ([id number]). . Cytogenetics Analysis: Cytogenetic chromosomal analysis is pending at [email or web address] ([id number]). . FISH analysis for a myeloma FISH panel is pending at [email or web address] ([id number]). . (CLW:minerva; 04/22/2019) . 02 Pathologist provided ICD-10: D53.9, D69.6, C90.00 . 02 CPT . 893267, 646548, 488552, 673374, 857884, 780245, 674070, 621849, 337876, 076723, 396673, [id number], [id number], [id number] Specimen Comment: A courtesy copy of this report has been sent to Specimen Comment: [phone], , . Specimen Comment: Report sent to ,DR SALAZAR / DR RIOJAS Performed at: 01 [facility] [address] [place] [address] [id number] MD Kevin Dhaliwal MD Phone: [phone] Performed at: [address] [id number] MD Bob Giraldo MD Phone: [phone]
== END 2019-04-18 13:00 | disposition home or self-care (01) ==
LOC: INTRAD 08:29
PROVIDERS: ATTEND Internal Medicine Hematology & Oncology
DX: C90.30 Solitary plasmacytoma not having achieved remission (principal); M79.89 Other specified soft tissue disorders; Z79.01 Long term (current) use of anticoagulants
CPT/HCPCS: 20206; 36415; 38222; 77012; 80053; 83520; 84165; 84166; 85025; 85610; 86334; 88184; 88185; 88237; 88374; J2250; J3010; 85007; 99152; 99153

== ENCOUNTER 2019-05-02 17:48 | Inpatient (IN) | payer OTHER ==
[~2019-05-02] VITALS: Ht 172.7 cm; Wt 98.5 kg
[~2019-05-02 17:48] MED LIST changes: +FENT1PAT15 TP; +LOPE2CAP PO; +LORA2ORA7 SL; +MORP100S3 SL; +OMEP40CA5 PO; +ONDA4TAB12 PO; +POTA20TA82 PO; +PROC5TAB14 PO; +SCOP1PAT11 TD
[2019-05-02] MEDS ORDERED: MORPHINE SULFATE 20 MG/ML CONC SOLUTION. SL PRN (18:00)
[2019-05-02] MEDS ORDERED: LORazepam INTENSOL 2 MG/ML ORAL.CONC SL PRN (18:00)
[2019-05-02 19:14] VITALS: BP 140/76
[2019-05-02] MEDS: MORPHINE SULFATE 4 MG/ML VIAL. IV PRN ×2 (19:14→22:12)
[2019-05-03] MEDS: MORPHINE SULFATE 4 MG/ML VIAL. IV PRN ×3 (02:41→09:51)
[2019-05-03] MEDS: ACETAMINOPHEN 650 MG SUPP.RECT. PR PRN ×2 (02:42→14:23)
[2019-05-03 07:59] VITALS: BP 126/84
[2019-05-03] MEDS: HALOPERIDOL LACTATE 5 MG/ML VIAL. IVP PRN ×3 (08:45→18:19)
--- NOTE | 2019-05-03 09:11 | NUR ---
WAS ADMITTED TO [facility] ON 05/02/19.
--- NOTE | 2019-05-03 09:15 | NUR ---
IP: Pt adm to hospice inpatient care. Pt unable to take C.diff treatment. Pt to [place] in contact plus precautions. Addendum: 05/03/19 at 0919 by GIAN PRYOR RN After discussion with nurse, pt has not had a stool in 4 days. Contact precautions removed.
[2019-05-03] MEDS ORDERED: IV NORMAL SALINE 1000ML BAG 1,000 ML IV SCH (10:32)
[2019-05-03] MEDS ORDERED: NALOXONE 0.4 MG/ML VIAL. IV PRN (10:45)
[2019-05-03] MEDS: MORPHINE SULFATE/PF 30 ML IV PRN ×2 (12:07→19:02)
--- NOTE | 2019-05-03 12:32 | PDOC1 ---
History and Physical Date of Admission Date of Admission DATE: 05/03/19 TIME: 12:29 Identification/Chief Complaint Chief Complaint hospice Source Source: Caregiver, Chart review History of Present Illness History of Present Illness HE was admitted under my care [facility], under acute care few days ago for hypercalcemia with symptoms. Multiple myeloma in relapse, known to heme onc service. Underwent 1 dose chemotherapy here, We corrected hypercalcemia but unfortunately mental status got worse. DNR. Palliative got involved. Heme onc highly recommended hospice and here we are now His lowest platelets was 6 with no bleeding. NO BT< Hospice DNR, may seem to be actively dying. I have initiated morphine PLAN MANAGER Discussed with RN and at bedside He is nothing by mouth, confusion, mittens on Past Medical History Cardiovascular: HTN, Hyperlipidemia Pulmonary: No pertinent hx GI: Diverticulosis, GERD, Gastritis Heme/Onc: No pertinent hx Hepatobiliary: No pertinent hx Psych: Anxiety Rheumatologic: No pertinent hx Infectious disease: No pertinent hx Renal/: No pertinent hx Endocrine: No pertinent hx Past Surgical History Past Surgical History: Tonsillectomy Family History Family History: No Significant Social History Smoke: No ALCOHOL: none Drugs: None Current Medications Current Medications Current Medications Acetaminophen (Tylenol Supp) 650 mg PRN Q4HRS PRN UT MILD PAIN / TEMP Last administered on 05/03/19at 02:42; Start 05/02/19 at 18:00 Fentanyl (Duragesic 25mcg/ Hr Patch) 1 patch Q3DAYS TD ; Start 05/05/19 at 09:00 Scopolamine (Transderm-Scop) 1 patch Q72H TD ; Start 05/04/19 at 15:00 Lorazepam (Ativan Inj) 2 mg PRN Q1HR PRN IV ANXIETY / AGITATION Last administered on 05/03/19at 09:51; Start 05/02/19 at 18:00 Haloperidol Lactate (Haldol Inj) 10 mg PRN Q4HRS PRN IVP AGITATION Last administered on 05/03/19at 08:45; Start 05/02/19 at 18:00 Morphine Sulfate (Morphine Sulfate) 4 mg PRN Q1HR PRN IV PAIN Last administered on 05/03/19at 09:51; Start 05/02/19 at 18:00 Morphine Sulfate (Roxanol Conc) 20 mg PRN Q3HRS PRN SL PAIN; Start 05/02/19 at 18:00 Lorazepam (Ativan Intensol) 2 mg PRN Q6HRS PRN SL ANXIETY / AGITATION; Start 05/02/19 at 18:00 Naloxone HCl (Narcan) 0.4 mg PRN Q2MIN PRN IV SEE INSTRUCTIONS; Start 05/03/19 at 10:45 Sodium Chloride 1,000 ml @ 25 mls/hr Q24H IV Last administered on 05/03/19at 12:06; Start 05/03/19 at 10:32 Morphine Sulfate 30 ml @ 0 mls/hr CONT PRN PRN IV PER PROTOCOL Last administered on 05/03/19at 12:07; Start 05/03/19 at 10:45 Active Scripts Active FENTANYL 25mcg/hr (Fentanyl) 1 Each Patch.td72 1 Patch TP Q3DAYS Transderm-Scop (Scopolamine) 1 Each Patch.td72 1 Patch TD Q3DAYS 7 Days Lorazepam Intensol (Lorazepam) 2 Mg/1 Ml Oral.conc 2 Mg SL PRN Q6HRS PRN 14 Days Morphine Sulfate 100 Mg/5 Ml Solution 20 Mg SL PRN Q3HRS PRN 14 Days Allergies Allergies: Coded Allergies: amoxicillin (Verified Allergy, Intermediate, 04/28/19) TOLERATES AMPICILLIN IV Penicillins (Verified Adverse Reaction, Intermediate, Nausea and Vomiting, 04/28/19) ROS Review of System confused, limited rOS Physical Exam General: Other (mouth breathing, some tcahypnea, tachycardic) HEENT: Atraumatic, PERRLA, EOMI Lungs: Clear to auscultation, Normal air movement Heart: S1S2, RRR, no thrills, no rubs, no gallops, no murmurs Cardiovascular: S1, S2, Other (sinus tachy) Abdomen: Normal bowel sounds Rectal Exam: not examined PELVIC: Nml ext genitalia Extremities: No clubbing, No cyanosis, No edema, Normal pulses, No tenderness/swelling Skin: No rashes, No breakdown, No significant lesion Vitals Vitals Vital Signs Date Time Temp Pulse Resp B/P (MAP) Pulse Ox O2 Delivery O2 Flow Rate FiO2 05/03/19 12:07 92 Nasal Cannula 2.0 05/03/19 07:59 99.8 149 22 126/84 (98) 99.8 VTE Prophylaxis Ordered VTE Prophylaxis Devices: Yes VTE Pharmacological Prophylaxi: Yes Assessment/Plan Assessment/Plan Multiple myeloma in relapse Hypercalcemia corrected Metabolic encephalopathy DNR Hospice Plan: hospice packet, add PLAN MANAGER morphine pump Discussed with RN and JOSE ALBERTO OLMOS MD May 03, 2019 12:32
[2019-05-03 19:53] VITALS: BP 61/44
--- NOTE | 2019-05-04 06:11 | NUR ---
Pt asked this nurse to check pt respiratory status at 2230. This nurse auscultated lungs for one minute and heard nothing, had MARIAELENA Robert verify no breath sounds at 2234. [place] transplant, physician and nursing paperhanger supervisor were all notified of pt . Pt was candidate for eye donation and once family agreed to eye donation, protocols were initiated. After eye extraction was completed pt [facility].
[2019-05-04] MEDS ORDERED: SCOPOLAMINE 1.5MG PATCH. TD SCH (15:00)
[2019-05-05] MEDS ORDERED: fentaNYL 25MCG/HR PATCH 1 PATCH PATCH.TD72 TD SCH (09:00)
== END 2019-05-03 22:34 | disposition expired | DRG 840 ==
LOC: 6 SOUTH 17:48
PROVIDERS: ADMIT Internal Medicine; ATTEND Internal Medicine
PROC: XW033B3 Introduction of Cytarabine and Daunorubicin Liposome Antineoplastic into Peripheral Vein, Percutaneous Approach, New Technology Group 3 (ICD-10-PCS; principal; 2019-05-03)
DX: C90.02 Multiple myeloma in relapse (principal); G93.41 Metabolic encephalopathy; E83.52 Hypercalcemia; I10 Essential (primary) hypertension; K21.9 Gastro-esophageal reflux disease without esophagitis; E78.5 Hyperlipidemia, unspecified; F41.9 Anxiety disorder, unspecified; Z66 Do not resuscitate; Z88.0 Allergy status to penicillin
CPT/HCPCS: J1630; J2060; J2270; J7030